=== PATIENT | female | born 1945 | race Caucasian/White ===

== ENCOUNTER → 2020-04-18 12:56 | Outpatient (BNVA) | payer MEDICARE, MEDICAID, SELFPAY | PROVIDERS: Visit Provider Surgery Vascular Surgery | DX: Z48.812 Encounter for surgical aftercare following surgery on the circulatory system (principal); Z86.73 Personal history of transient ischemic attack (TIA), and cerebral infarction without residual deficits | CPT/HCPCS: 99024; 99212 ==

== ENCOUNTER 2020-06-04 08:09 | Outpatient (REF) | payer MEDICARE, MEDICAID, SELFPAY ==
--- NOTE | 2020-06-04 | US_ITS ---
EXAMINATION: US VENOUS ULTRASOUND WITH DOPPLER LOWER EXTREMITY, LEFT CLINICAL INFORMATION: Left leg pain. COMPARISON: None TECHNIQUE: Ultrasound of the deep veins is performed from the hip to the calf with compression sonography and color and pulse Doppler assessment. Spectral analysis with color-flow imaging is performed. FINDINGS: There is normal venous compression and respiratory variation and augmented flow. The visualized common femoral vein, superficial femoral vein, profunda femoral vein, popliteal vein, and the trifurcation region shows no evidence of deep venous thrombosis. There is no significant popliteal fossa cyst. There is minimal fluid within the joint space suspicious for fusion. If the patient's symptoms persist, followup ultrasound in 5 days 7 days might be of value to exclude proximal propagation from a non-visualized calf vein. US/US venous duplex LE IMPRESSION: No DVT demonstrated in the left lower extremity. Suspect small joint effusion. No Schaefer's cyst seen.
== END 2020-06-04 08:10 | disposition home or self-care (01) ==
LOC: HO.US 08:09
PROVIDERS: Visit Provider Internal Medicine Medical Oncology
DX: I63.231 Cerebral infarction due to unspecified occlusion or stenosis of right carotid arteries (principal); M79.605 Pain in left leg
CPT/HCPCS: 93971

== ENCOUNTER 2020-07-10 08:30 | Emergency (ER) | payer MEDICARE, MEDICAID, SELFPAY ==
[2020-07-10 09:10] VITALS: BP 142/52; PULSE 99; RESP 15; O2SAT 99; BMI 19.5
--- NOTE | 2020-07-10 09:17 | ECG_ITS ---
Test Reason : NUMBNESS Blood Pressure : / mmHG Vent. Rate : 089 BPM Atrial Rate : 085 BPM P-R Int : 000 ms QRS Dur : 064 ms QT Int : 342 ms P-R-T Axes : 000 068 081 degrees QTc Int : 416 ms Normal sinus rhythm with PACs, possible aberrant conduction Septal infarct , age undetermined Nonspecific ST and T wave abnormality Abnormal ECG When compared with ECG of 01-APR-2020 13:34, PACs now present Referred By: Estrellita Ponce Electronically Signed By:JENELLE JACOBS
--- NOTE | 2020-07-10 09:18 | CT_ITS ---
EXAMINATION: CT HEAD WITHOUT CONTRAST CLINICAL INFORMATION: Left-sided weakness, numbness. History of CVA COMPARISON: None TECHNIQUE: Contiguous axial imaging was performed from the skull base to vertex without intravenous administration of contrast. This CT examination was performed using dose optimization techniques as appropriate, variously including the following: *Automated exposure control *Adjustment of mA and/or kV according to patient size (this includes techniques or standardized protocols for targeted exams where dose is matched to indication/reason for exam; i.e. extremities or head) *Use of iterative reconstruction technique DLP: 597 mGy-cm FINDINGS: There is a right posterior parietal lobe old infarct. There is no acute infarct in evolution. There is no acute intra-axial, extra-axial bleed, masses, edema or midline shift. Both lateral ventricles are symmetrical in size and configuration without enlargement. The sood to white matter differentiation maintained well. Bone windows reveal no calvarial abnormality. Bilateral frontal sinuses and bilateral mastoid air cells are well aerated. There is no scalp soft tissue abnormality. CT/CT head/brain wo con IMPRESSION: No acute intracranial process seen. Old infarct right posterior parietal lobe. The size of the infarct is similar to previous study. No acute infarct seen at this time.
--- NOTE | 2020-07-10 09:19 | ED_ITS ---
HPI - Neuro Symptoms/Deficit General Chief Complaint: Neuro Symptoms/Deficit Stated Complaint: hand and foot numbness Time Seen by Provider: 07/10/20 09:02 Source: patient Mode of arrival: ambulatory Limitations: no limitations History of Present Illness HPI Narrative: 74 y/o female with history of CVA Mar 2020, carotid artery stenosis s/p endarterectomy 04/01/2020, AAA s/p repair 2017, HTN who presents with 4 days of increased left sided weakness and heaviness as well as feeling of pins and needles in her left foot and hand. She has bruising on her hand and wrist and does not know how they got there. She states she has had left sided weakness since her stroke but this is now worse. She is nervous she is having another stroke. Related Data Home Medications Medication Instructions Recorded Confirmed albuterol sulfate 90 mcg/actuation 0 mcg PO 04/18/20 aerosol inhaler aspirin 81 mg tablet,delayed 81 mg PO DAILY 04/18/20 release atorvastatin 80 mg tablet 80 mg PO DAILY 04/18/20 clopidogrel 75 mg tablet 75 mg PO DAILY 04/18/20 latanoprost 0.005 % eye drops 1 drp OPHTHALMIC (EYE) BEDTIME 04/18/20 lisinopril 30 mg tablet 30 mg PO DAILY 04/18/20 lisinopril 40 mg tablet 40 mg PO DAILY 04/18/20 omeprazole 20 mg capsule,delayed 20 mg PO DAILY 04/18/20 06/18/20 release ranitidine HCl 150 mg tablet 150 mg PO BID 04/18/20 Previous Rx's Medication Instructions Recorded cefuroxime axetil 250 mg PO BID 7 Days #14 tab 07/10/20 Allergies Allergy/AdvReac Type Severity Reaction Status Date / Time penicillin V Allergy Unknown unkown Verified 04/18/20 13:11 Review of Systems Review of Systems: Constitutional: No Fever, No Chills ENT/Mouth: No Swallowing Difficulty Cardiovascular: + Chest Pain, No SOB, No Orthopnea, No Edema Respiratory: No Cough, No Sputum, No Wheezing, No dyspnea Gastrointestinal: No Nausea, No Vomiting, No Diarrhea, No abdominal Pain, No Hematochezia, No Melena Genitourinary: No Dysuria, No Urinary Frequency, No Hematuria Musculoskeletal: + joint pain, No Myalgias Skin: No Skin Lesions, No rash Neuro: + Weakness, + Numbness, No Dizziness, No Headache Psych: No Anxiety/Panic, No Depression Heme/Lymph: No Bruising, No Lymphadenopathy Endocrine: No Polyuria, No Polydipsia [facility] Past Medical History Medical History Glaucoma Mild acid reflux Surgical History History of AAA (abdominal aortic aneurysm) repair Hx of shoulder surgery Hx of varicose vein stripping Family History Family History Father No problems noted. Mother No problems noted. Sister No problems noted. Sister No problems noted. Sister No problems noted. Sister No problems noted. Sister Cancer Son No problems noted. Social History Social History Smoking Status: Former smoker Cigarettes Per Day: 31 Use of substances other than those prescribed or required for medical reasons: No Advance Directives: No Advance Directives Information Provided: No Physical Exam Vital Signs: Vital Signs: Last Vital Signs Temp 98.1 F 07/10/20 12:00 Pulse 80 07/10/20 12:00 Resp 16 07/10/20 12:00 BP 130/47 L 07/10/20 12:00 Pulse Ox 93 07/10/20 12:00 Body Mass Index 19.5 Appearance: Alert. Oriented X3. No acute distress. Eyes: Pupils equal, round and reactive to light. ENT: Pharynx normal. Neck: Normal inspection. Neck supple. CVS: irregularly irregular, regular rate. no murmur. Pulses normal. Anterior chest wall tenderness of lower ribs Respiratory: No respiratory distress. Breath sounds normal. Abdomen: Soft and nontender. +BS x4 Skin: Skin warm and dry. Normal skin color. Normal skin turgor. No rashes. Extremities: No lower extremity edema. Neuro: Oriented X 3. Normal speech and cognition. Left sided arm and leg weakness 3/5, normal sensation. Gait is steady Course Course Course Narrative: 74 y/o female with history of CVA in Mar with residual left sided weakness presents with worsening left sided weakness as well as numbness, tingling in her upper and lower extremities on the left for the last 4 days. Concern for worsening stroke. Unsafe at home with inability to safely ambualte. ?fall at home with bruising along her left side with tenderness of rib cage, wrist and ankle. Will get CT head, lab workup and imaging of wrist and ribs. She is not a TPA candidate given duration of symptoms. NIH is 5 however her symptoms are chronic from March, only subjectively more pronounced for the last 4 days. Reevaluation(s) Reevaluation #1: CT head showed unchanged old infarct right posterior parietal lobe, similar size to previous study. UA is positive for infection, no fever or leukocytosis. Rocephin ordered. Case d/w Dr. Recinos - recommended admission for weakness and UTI. Patient is unwilling to be admitted. She is also unwilling to go to short term rehab. She said after her stroke she also refused STR due to financial issues. She works 7 days per week in order to pay the bills. She also has 3 dogs to look after and no one to help her. Long discussion had with patient about her health, concern for possible evolving stroke and UTI. She is adament on not getting admitted and not going to STR. Discussed CTA head/neck as well and she is refusing. Reevaluation #2: Patient is going to leave against advise. She is ambulating with a steady gait. She was warned of possibility of leaving the hospital against medical advise. She verbalized understanding of the risks. MDM - Neuro Symptoms/Deficit Lab Data Result diagrams: 07/10/20 09:25 07/10/20 09:25 Labs: Lab Results 07/10/20 07/10/20 07/10/20 Range/Units 09:25 09:25 09:25 WBC 5.7 (4.8-10.8) X10*3/uL RBC 3.36 L (4.20-5.50) X10*6/uL Hgb 9.3 L (12.0-16.0) g/dl Hct 30.4 L (37-47) % MCV 90.5 (80-98) fL MCH 27.7 (27.0-33.0) pg MCHC 30.6 L (31.0-35.0) g/dl RDW 13.8 (11.0-16.0) % Plt Count 205 (160-400) X10*3/uL MPV 11.0 (9.4-12.3) fL Immature Gran % (Auto) 0.4 (0.0-0.4) % Neut % (Auto) 64.1 (45-73) % Lymph % (Auto) 25.5 (20-40) % [place] % (Auto) 6.9 (2-11) % Eos % (Auto) 2.7 (0-4) % Baso % (Auto) 0.4 (0-2) % Lymph # (Auto) 1.4 (1.2-4.9) X10*3/uL [place] # (Auto) 0.4 (0.1-1.2) X10*3/uL Eos # (Auto) 0.2 (0.0-0.4) X10*3/uL Baso # (Auto) 0.0 (0.0-0.2) X10*3/uL Abs Immat Gran (auto) 0.02 (0.00-0.03) X10*3/uL Absolute Neuts (auto) 3.6 (2.0-8.3) X10*3/uL Absolute Nucleated RBC 0.000 (0.0-0.012) X10*3/uL Nucleated RBC % (auto) 0.0 (0.0-0.2) /100WBC PT 11.1 (10.8-13.0) SEC INR 0.9 (0.9-1.1) APTT 27.7 (24.1-38.0) SEC Sodium 140 (135-145) mmol/L Potassium 4.6 (3.3-5.1) mmol/l Chloride 109 H (96-108) mmol/L Carbon Dioxide 26 (22-29) mmol/L Anion Gap 10 L (12-20) BUN 23 H (9-16) mg/dL Creatinine 1.06 (0.5-1.4) mg/dL Estim Creat Clear Calc 38.0 Estimated GFR 51 Random Glucose 94 (60-115) mg/dL Calcium 8.8 (8.4-10.2) mg/dL Magnesium 2.2 (1.6-2.6) mg/dL Troponin I High Sens (<3.5-17.0) ng/L Urine Color Urine Appearance Urine pH (5.0-8.0) Ur Specific [place] (1.005-1.025) Urine Protein (NEG-TRACE) MG/DL Urine Glucose (UA) (NEG) MG/DL Urine Ketones (NEG) MG/DL Urine Blood (NEG) Urine Nitrite (NEG) Ur Leukocyte Esterase (NEG) Urine RBC (0) /HPF Urine WBC (0-4) /HPF Ur Squamous Epith Cells /LPF Urine Bacteria /LPF 07/10/20 07/10/20 Range/Units 09:25 Unknown WBC (4.8-10.8) X10*3/uL RBC (4.20-5.50) X10*6/uL Hgb (12.0-16.0) g/dl Hct (37-47) % MCV (80-98) fL MCH (27.0-33.0) pg MCHC (31.0-35.0) g/dl RDW (11.0-16.0) % Plt Count (160-400) X10*3/uL MPV (9.4-12.3) fL Immature Gran % (Auto) (0.0-0.4) % Neut % (Auto) (45-73) % Lymph % (Auto) (20-40) % [place] % (Auto) (2-11) % Eos % (Auto) (0-4) % Baso % (Auto) (0-2) % Lymph # (Auto) (1.2-4.9) X10*3/uL [place] # (Auto) (0.1-1.2) X10*3/uL Eos # (Auto) (0.0-0.4) X10*3/uL Baso # (Auto) (0.0-0.2) X10*3/uL Abs Immat Gran (auto) (0.00-0.03) X10*3/uL Absolute Neuts (auto) (2.0-8.3) X10*3/uL Absolute Nucleated RBC (0.0-0.012) X10*3/uL Nucleated RBC % (auto) (0.0-0.2) /100WBC PT (10.8-13.0) SEC INR (0.9-1.1) APTT (24.1-38.0) SEC Sodium (135-145) mmol/L Potassium (3.3-5.1) mmol/l Chloride (96-108) mmol/L Carbon Dioxide (22-29) mmol/L Anion Gap (12-20) BUN (9-16) mg/dL Creatinine (0.5-1.4) mg/dL Estim Creat Clear Calc Estimated GFR Random Glucose (60-115) mg/dL Calcium (8.4-10.2) mg/dL Magnesium (1.6-2.6) mg/dL Troponin I High Sens < 3.5 (<3.5-17.0) ng/L Urine Color YELLOW Urine Appearance CLOUDY Urine pH 5.5 (5.0-8.0) Ur Specific [place] 1.015 (1.005-1.025) Urine Protein NEG (NEG-TRACE) MG/DL Urine Glucose (UA) NEG (NEG) MG/DL Urine Ketones NEG (NEG) MG/DL Urine Blood NEG (NEG) Urine Nitrite NEG (NEG) Ur Leukocyte Esterase 2+ H (NEG) Urine RBC 0-2 (0) /HPF Urine WBC 15-29 H (0-4) /HPF Ur Squamous Epith Cells 3+ /LPF Urine Bacteria 2+ /LPF NIH Stroke Scale Internal: Initial- Upon Arrival Level of Consciousness: Alert Level of Consciousness Questions: Answers both questions correctly Level of Consciousness Commands: Performs both tasks correctly Best Gaze: Normal Visual: No visual loss Facial Palsy: Minor paralyis Motor Arm (Right): No drift Motor Arm (Left): Some effort against gravity Motor Leg (Right): No drift Motor Leg (Left): Some effort against gravity Limb Ataxia: Absent Sensory: Normal Best Language: No aphasia Dysarthia: Normal Extinction and Inattention: No abnormality Score: 5 Discharge Plan Discharge Clinical Impression: Acute UTI, Left-sided muscle weakness Patient Disposition: Left Against Medical Advice Instructions: Against Medical Advice (ED), Urinary Tract Infection in Older Adults (ED) Additional Instructions: It was recommended that you be admitted to the hospital for weakness and a UTI, however you are refusing. It is possible that you are having a worsening stroke. This could be life threatening. Recommend close and early follow up with your doctor. Take the prescribed antibiotic for UTI. If you develop any worsening symptoms come back to the ER for further evaluation. If you decide that you would like to be admitted to the hospital come back to the ER. Prescriptions: New cefuroxime axetil 250 mg tablet 250 mg PO BID 7 Days Qty: 14 RF: 0 No Action omeprazole 20 mg capsule,delayed release(DR/EC) 20 mg PO DAILY RF: 0 Referrals: Elizabeth Hearn MD [Physician] - 1 day
--- NOTE | 2020-07-10 09:21 | XR_ITS ---
EXAMINATION: LEFT WRIST AND LEFT RIBS CLINICAL INFORMATION: Left wrist pain. Left rib pain. COMPARISON: None TECHNIQUE: Chest x-ray and left RIBS 4 views. Left wrist 4 views. FINDINGS: CHEST: The lungs are hyperinflated but clear of acute process. The heart size and pulmonary vascularity is normal. There is minimal right apical pleural thickening. No gross bony abnormality seen. LEFT RIBS: Multiple views left RIBS reveal no visible left rib fracture. The soft tissues are normal. A marker has been placed along the left lateral lower ribs. LEFT WRIST: There is a small chip fracture at the head of the fifth metacarpal with mild soft tissue swelling. No additional fractures seen. The soft tissues are normal. XR/XR wrist LT min 3V IMPRESSION: Hyperinflated lungs but no acute process seen. Multiple views of left ribs reveal no visible fracture or bony abnormality. Chip fracture left fifth distal metacarpal with mild dorsal soft tissue swelling. No additional bony abnormality seen.
--- NOTE | 2020-07-10 09:30 | XR_ITS ---
EXAMINATION: LEFT WRIST AND LEFT RIBS CLINICAL INFORMATION: Left wrist pain. Left rib pain. COMPARISON: None TECHNIQUE: Chest x-ray and left RIBS 4 views. Left wrist 4 views. FINDINGS: CHEST: The lungs are hyperinflated but clear of acute process. The heart size and pulmonary vascularity is normal. There is minimal right apical pleural thickening. No gross bony abnormality seen. LEFT RIBS: Multiple views left RIBS reveal no visible left rib fracture. The soft tissues are normal. A marker has been placed along the left lateral lower ribs. LEFT WRIST: There is a small chip fracture at the head of the fifth metacarpal with mild soft tissue swelling. No additional fractures seen. The soft tissues are normal. XR/XR ribs LT min 3V w CXR1V IMPRESSION: Hyperinflated lungs but no acute process seen. Multiple views of left ribs reveal no visible fracture or bony abnormality. Chip fracture left fifth distal metacarpal with mild dorsal soft tissue swelling. No additional bony abnormality seen.
[2020-07-10 09:36] LABS: Basophils Percent Auto 0.4 % (0-2); Eosinophils Absolute Auto 0.2 X10*3/uL (0.0-0.4); Eosinophils Percent Auto 2.7 % (0-4); Hematocrit 30.4 % (37-47); Hemoglobin 9.3 g/dl (12.0-16.0); Imm Gran Abs Auto 0.02 X10*3/uL (0.00-0.03); Imm Gran Pct Auto 0.4 % (0.0-0.4); Lymphocytes Absolute Auto 1.4 X10*3/uL (1.2-4.9); Lymphocytes Percent Auto 25.5 % (20-40); MANUAL DIFF FLAG NO; Mean Corpuscular HGB Conc 30.6 g/dl (31.0-35.0); Mean Corpuscular Hemoglobin 27.7 pg (27.0-33.0); Mean Corpuscular Volume 90.5 fL (80-98); Monocytes Absolute Auto 0.4 X10*3/uL (0.1-1.2); Monocytes Percent Auto 6.9 % (2-11); Neutrophils Absolute Auto 3.6 X10*3/uL (2.0-8.3); Neutrophils Percent Auto 64.1 % (45-73); Platelet Count 205 X10*3/uL (160-400); Red Blood Count 3.36 X10*6/uL (4.20-5.50); Red Cell Distribution Width 13.8 % (11.0-16.0); White Blood Count 5.7 X10*3/uL (4.8-10.8)
[2020-07-10 09:42] LABS: INTERNATIONAL NORM RATIO 0.9 (0.9-1.1); Prothrombin Time 11.1 SEC (10.8-13.0)
[2020-07-10 09:45] LABS: Partial Thromboplastin Time 27.7 SEC (24.1-38.0)
[2020-07-10 10:00] LABS: Anion Gap 10 (12-20); Blood Urea Nitrogen 23 mg/dL (9-16); Calcium 8.8 mg/dL (8.4-10.2); Carbon Dioxide 26 mmol/L (22-29); Chloride 109 mmol/L (96-108); Estimated Glomerular Filt Rate 51; Glucose Random 94 mg/dL (60-115); Magnesium 2.2 mg/dL (1.6-2.6); Potassium 4.6 mmol/l (3.3-5.1); Sodium 140 mmol/L (135-145)
[2020-07-10 10:05] LABS: Troponin-I High Sensitivity < 3.5 ng/L (<3.5-17.0)
[2020-07-10 10:21] VITALS: BP 152/51; PULSE 69; RESP 14; O2SAT 95
[2020-07-10 10:31] LABS: Glucose Urine UA NEG (NEG); Leukocyte Esterase Urine 2+ (NEG); Nitrite Urine NEG (NEG); PH 5.5 (5.0-8.0); Specific Gravity - Urine 1.015 (1.005-1.025); Urine Blood NEG (NEG); Urine Ketones NEG (NEG); Urine Protein NEG (NEG-TRACE)
[2020-07-10 10:32] LABS: Appearance Urine CLOUDY; Color Urine YELLOW
[2020-07-10 10:44] LABS: Bacteria Urine 2+ /LPF; RBC Urine 0-2 /HPF (0); Squamous Epithelial Cell Urine 3+ /LPF
[2020-07-10] MEDS: cefTRIAXone sodium 1 GM in 0.9 % Sodium Chloride 50 ML IV (11:11)
[2020-07-10] MEDS: 0.9 % Sodium Chloride 1,000 ML 999 ML IVCONT (11:11)
[2020-07-10 12:00] VITALS: BP 130/47; PULSE 80; RESP 16; TEMP 36.7; O2SAT 93
--- NOTE | 2020-07-10 12:09 | PC.NURSE ---
Pt ambulated to bathroom with steady gait. Pt declining admission, PA aware
== END 2020-07-10 12:45 | disposition left against medical advice (07) ==
PROVIDERS: Physician Assistant; Emergency Provider Emergency Medicine Emergency Medical Services; PCP Internal Medicine Medical Oncology
DX: N30.00 Acute cystitis without hematuria (principal); M62.81 Muscle weakness (generalized); I69.354 Hemiplegia and hemiparesis following cerebral infarction affecting left non-dominant side
CPT/HCPCS: 36415; 70450; 71101; 73110; 80048; 81001; 83735; 84484; 85025; 85610; 85730; 87086; 93005; 96361; 96365; 99285; J0696

== ENCOUNTER 2020-07-30 09:50 | Outpatient (REF) | payer MEDICARE, MEDICAID, SELFPAY ==
--- NOTE | 2020-07-30 09:54 | US_ITS ---
EXAMINATION: US EXTRACRANIAL CAROTID DUPLEX, BILATERAL CLINICAL INFORMATION: Right endarterectomy. COMPARISON: None. TECHNIQUE: Real-time ultrasound and Doppler techniques (integrating B-mode 2-D vascular images, Doppler spectral analysis and color-flow Doppler imaging) were utilized to interrogate the extracranial carotid arteries, the vertebral arteries and proximal subclavian arteries bilaterally. The degree of stenosis is determined by criteria similar to NASCET. FINDINGS: Right Side: 1. There is soft atherosclerotic plaque seen in the bifurcation/proximal ICA region. 2. The common carotid artery PSV proximally is 127 cm/s and distally 150 cm/s. 3. The proximal internal carotid artery velocities are 150 cm/s systolic and 36.3 cm/s diastolic. 4. The proximal external carotid artery PSV is 112 cm/s. 5. The vertebral artery shows 72.7 flow. 6. The subclavian artery waveforms are 189. Left Side: 1. There is soft atherosclerotic plaque seen in the bifurcation/proximal ICA region. 2. The common carotid artery PSV proximally is 126 cm/s and distally 128 cm/s. 3. The proximal internal carotid artery velocities are 125 cm/s systolic and 33.4 cm/s diastolic. 4. The proximal external carotid artery PSV is 154 cm/s. 5. The vertebral artery shows antegrade flow. 6. The subclavian artery waveforms are normal. US/US carotid duplex BI IMPRESSION: 1. RIGHT: Soft atherosclerotic plaque. 50-79% range stenosis right carotid artery. Similar findings were seen on the previous ultrasound exam 03/20/2020, however, the velocities previously measured 354 cm/s in the proximal ICA. Now it measures 150 cm/s. 2. LEFT: Soft atherosclerotic plaque with 50-79% range stenosis right carotid artery. These findings are new since the last exam. 3. Normal antegrade flow seen in both vertebral arteries. 4. Mild elevated velocity in the left ECA.
== END 2020-07-30 09:51 | disposition home or self-care (01) ==
LOC: HO.US 09:50
PROVIDERS: Visit Provider Surgery Vascular Surgery
DX: I63.231 Cerebral infarction due to unspecified occlusion or stenosis of right carotid arteries (principal); R63.4 Abnormal weight loss; I71.4 Abdominal aortic aneurysm, without rupture
CPT/HCPCS: 93880

== ENCOUNTER → 2020-08-13 09:04 | Outpatient (BNVA) | payer MEDICARE, SELFPAY | PROVIDERS: PCP Internal Medicine Medical Oncology; Visit Provider Surgery Vascular Surgery | DX: I71.4 Abdominal aortic aneurysm, without rupture (principal); I63.231 Cerebral infarction due to unspecified occlusion or stenosis of right carotid arteries | CPT/HCPCS: 99212 ==

== ENCOUNTER 2020-08-16 10:57 | Emergency (ER) | payer MEDICARE, SELFPAY ==
--- NOTE | ~2020-08-16 | CT_ITS ---
EXAMINATION: CT ANGIOGRAM OF THE CHEST WITH AND WITHOUT CONTRAST (CT PULMONARY ANGIOGRAM FOR PE) CLINICAL INFORMATION: Shortness of breath, elevated d-dimer, question PE COMPARISON: Chest x-ray 08/16/2020. CTA abdomen and pelvis 10/15/2017 TECHNIQUE: Prior to contrast administration, noncontrast localization images were obtained. Subsequently, multidetector volumetric imaging was performed from the thoracic inlet to below the diaphragms following the administration of 54 mL Omnipaque 350 intravenous contrast. No contrast reaction reported Sagittal, coronal, and MIP oblique sagittal reformatted images were obtained on the CT workstation, uploaded to PACS, and reviewed. This CT examination was performed using dose optimization techniques as appropriate, variously including the following: *Automated exposure control *Adjustment of mA and/or kV according to patient size (this includes techniques or standardized protocols for targeted exams where dose is matched to indication/reason for exam; i.e. extremities or head) *Use of iterative reconstruction technique Total exam dose-length product 250 mGy-cm FINDINGS: QUALITY OF STUDY/CONTRAST BOLUS: Satisfactory. PULMONARY ARTERIES: No central or segmental pulmonary emboli. THORACIC AORTA: No aneurysm or dissection. LUNG: Moderate to severe emphysema. No focal consolidation or mass. Mild atelectasis. PLEURA: No pleural effusion or pneumothorax. MEDIASTINUM: Normal heart size. No pericardial effusion. No hilar or mediastinal lymphadenopathy. No evidence of septal bowing or right heart strain. CHEST WALL/AXILLA: No axillary or internal mammary lymphadenopathy. OSSEOUS STRUCTURES: No acute or suspicious osseous abnormality. UPPER ABDOMEN: There is chronic atrophy of the posterior cortex of the right kidney with a prominent right extrarenal pelvis, similar to prior study. Extensive vascular calcifications of the infrarenal abdominal aorta with a partially imaged stent graft. No adrenal mass. No reflux of contrast into the hepatic veins to suggest elevated right heart pressures. CT/CT angio chest PE protocol IMPRESSION: No pulmonary embolus seen. No acute pulmonary disease. Moderate to severe emphysema VTE: negative
--- NOTE | ~2020-08-16 | XR_ITS ---
EXAMINATION: XR CHEST CLINICAL INFORMATION: SOB. COMPARISON: None TECHNIQUE: Frontal view of the chest was obtained. FINDINGS: The lungs are well-expanded but clear of acute pneumonic process. There is minimal bilateral apical density likely atelectasis or scarring. The heart size and pulmonary vascularity is normal. No gross bony abnormality seen. XR/XR chest 1V IMPRESSION: Bilateral apical patchy opacity, likely scarring or atelectasis. No acute consolidation seen.
[2020-08-16 11:09] VITALS: BP 137/57; PULSE 89; RESP 20; TEMP 36.2; O2SAT 93; BMI 19.2
[2020-08-16 14:19] VITALS: BP 117/66; PULSE 78; RESP 18; TEMP 36.6; O2SAT 93
--- NOTE | 2020-08-16 14:26 | ECG_ITS ---
Test Reason : SOB Blood Pressure : / mmHG Vent. Rate : 081 BPM Atrial Rate : 081 BPM P-R Int : 136 ms QRS Dur : 072 ms QT Int : 400 ms P-R-T Axes : 077 054 052 degrees QTc Int : 464 ms Sinus rhythm with Premature atrial complexes with Aberrant conduction Cannot rule out Anterior infarct (cited on or before 10-JUL-2020) Abnormal ECG When compared with ECG of 10-JUL-2020 09:25, Aberrant conduction is now Present ST less depressed in Anterior leads T wave inversion no longer evident in Anterior leads Referred By: Susan Vyas Electronically Signed By:JENELLE JACOBS
[2020-08-16 14:43] VITALS: BP 108/63; PULSE 80; RESP 18; TEMP 36.6; O2SAT 94
--- NOTE | 2020-08-16 14:44 | ED.SOB ---
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 Marion, AAA, DVT, HTN, HLD, COPD and GERD presenting to the ED c c/o SOB for the past 5 days worse today. Reports that she went to her primary care provider's office Dr. phillip and he sent her to come to the emergency department for further evaluation and treatment for IV steroids per patient. She reports the shortness of breath is worse with exertion and orthopnea. Denies any dizziness, headaches, lightheadedness, changes in vision, nausea/vomiting, chest pain, palpitations, cough, sputum production, extremity edema, any symptoms or any other symptoms complaints or concerns at this time. MD elicited complaint: shortness of breath Pertinent past history: COPD and DVT Onset (ago): day(s) (5 days) Context: occurred during exertion Timing: constant Severity: moderate Exacerbating factors: lying flat, exertion and deep breaths Relieving factors: rest and upright position Known history of: COPD and DVT Associated symptoms: orthopnea Treatment prior to arrival: none Related Data Home Medications Medication Instructions Recorded Confirmed albuterol sulfate 90 mcg/actuation 0 mcg PO 04/18/20 aerosol inhaler aspirin 81 mg tablet,delayed 81 mg PO DAILY 04/18/20 release atorvastatin 80 mg tablet 80 mg PO DAILY 04/18/20 clopidogrel 75 mg tablet 75 mg PO DAILY 04/18/20 latanoprost 0.005 % eye drops 1 drp OPHTHALMIC (EYE) BEDTIME 04/18/20 lisinopril 30 mg tablet 30 mg PO DAILY 04/18/20 lisinopril 40 mg tablet 40 mg PO DAILY 04/18/20 omeprazole 20 mg capsule,delayed 20 mg PO DAILY 04/18/20 06/18/20 release ranitidine HCl 150 mg tablet 150 mg PO BID 04/18/20 Previous Rx's Medication Instructions Recorded cefuroxime axetil 250 mg PO BID 7 Days #14 tab 07/10/20 albuterol sulfate 1 inh INHALATION QID PRN #8.5 g 08/16/20 doxycycline monohydrate 100 mg PO BID 10 Days #20 cap 08/16/20 prednisone 40 mg PO DAILY 5 Days #10 tab 08/16/20 Allergies Allergy/AdvReac Type Severity Reaction Status Date / Time penicillin V Allergy Unknown unkown Verified 08/16/20 11:09 Review of Systems Review of Systems: Constitutional : No Weight loss, No Fever, No Chills, No Night Sweats, No Fatigue, No Malaise ENT/Mouth : No Hearing loss, No Ear Pain, No Nasal Congestion, No Sinus Pain, No Hoarseness, No sore throat, No Rhinorrhea, No Swallowing Difficulty Eyes: No Eye Pain, No Swelling, No Redness, No Foreign Body, No Discharge, No Vision Changes Cardiovascular : + SOB, + Dyspnea on Exertion, + Orthopnea, No Chest Pain, No Edema, No extremity swelling, No Palpitations Respiratory : + Dyspnea, No Cough, No Sputum, No Wheezing Gastrointestinal : No Nausea, No Vomiting, No Diarrhea, No abdominal Pain, No Hematochezia, No Melena Genitourinary : No irregular bleeding, No Dysuria, No Urinary Frequency, No Hematuria, No Urinary Incontinence, No Urgency, No Flank Pain, No Urinary Flow Changes, No Hesitancy Musculoskeletal : No joint pain, No Myalgias, No Joint Swelling Skin : No Skin Lesions, No rash Neuro : No Weakness, No Numbness, No Paresthesias, No Loss of Consciousness, No Dizziness, No Headache Psych : No Anxiety/Panic, No Depression, No SI/HI/AH/VH Heme/Lymph: No Bruising, No Bleeding,No Lymphadenopathy Endocrine : No Polyuria, No Polydipsia, No Temperature Intolerance Yes all other systems are reviewed and are negative [facility] Past Medical History Attestation statement: The following information was validated with the patient. Medical History (Updated 08/16/20 @ 18:17 by JORGE Larson) Asthma COPD (chronic obstructive pulmonary disease) CVA (cerebral vascular accident) Emphysema of lung Glaucoma Mild acid reflux Surgical History H/O carotid endarterectomy (04/01/20) History of AAA (abdominal aortic aneurysm) repair Hx of shoulder surgery Hx of varicose vein stripping Family History Family History Father No problems noted. Mother No problems noted. Sister No problems noted. Sister No problems noted. Sister No problems noted. Sister No problems noted. Sister Cancer Son No problems noted. Social History Social History Alcohol intake: never Smoking Status: Former smoker Cigarettes Per Day: 31 Use of substances other than those prescribed or required for medical reasons: No Advance Directives: No Advance Directives Information Provided: No Physical Exam Vital Signs: Vital Signs: Last Vital Signs Temp 98.4 F 08/16/20 15:37 Pulse 72 08/16/20 15:37 Resp 19 08/16/20 15:37 BP 149/67 H 08/16/20 15:37 Pulse Ox 93 08/16/20 15:37 Body Mass Index 19.2 vital signs have been reviewed as normal and appeared to be correct. Blood pressure normal. Heart rate normal. Respiration rate normal. Temperature normal. Oxygen saturation normal. Appearance: Alert. Oriented X3. No acute distress. Head: Normal external exam. Normocephalic. Atraumatic. Eyes: PERRLA. EOMI. Conjunctiva and sclera normal. Eyelids normal. ENT: Pharynx normal. Uvula midline. Moist mucous membranes. No trismus noted. No drooling noted. No muffled voice noted. Neck: Normal inspection. Neck supple. FROM. No adenopathy. Thyroid Normal. Trachea midline. No meningeal signs. No neck mass noted. CVS: Normal heart rate and rhythm. Heart sound normal. No murmurs noted. Pulses normal throughout. Respiratory: No respiratory distress. Painless inspiration. Breath sounds normal. No wheezes/rales/rhonchi noted. Chest nontender. No accessory muscle usage noted or decreased air movement noted. Abdomen: Soft and nontender. Bowel sounds normal in all 4 quadrants. No distention noted. No organomegaly noted. No visible injury noted. : Chaperoned by MIGEL Brewster, normal external exam no hemorrhoids internal or external noted. Stool occult negative. Normal stool color light brown. Normal rectal tone. Back: No CVA tenderness. Full range of motion noted. Skin: Skin warm and dry. Normal skin color. Normal skin turgor. No rashes/lesions/lacerations noted. Extremities: No lower extremity edema. Extremities exhibit normal range of motion. Extremities nontender. Neuro: Oriented X 3. No motor deficit. No sensory deficit. Reflexes normal. 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 Marion, AAA, DVT, HTN, HLD, COPD and GERD presenting to the ED c c/o SOB for the past 5 days worse today. - Concern for COPD exacerbation vs PE vs PNA vs CHF vs ACS - on exam patient is alert and oriented x3. Patient's O2 sat is at 93 through 97% on room air otherwise all other vitals are within normal limits. - Plan: ;abs, CXR, EKG, blood cultures, lactic acid. Provide a L of IV fluids and 125 mg of Solu-Medrol then re-evaluate. Reevaluation(s) Reevaluation #1: - patient mildly anemic with H&H of 8.4/28.8 mild drop when compared to 07/10/2020. - D-dimer 595 - all other labs are within normal limits. UA within normal limits no evidence of UTI. - COVID/flu/RSV negative. - EKG sinus rhythm with ventricular rate of 81 with premature atrial complexes with aberrant conduction otherwise no acute ischemic changes noted. Similar compared to prior EKG on 07/10/2020 - CXR revealed bilateral atypical patchy opacity likely scarring or atelectasis. No acute consolidations seen - due to mild anemia stool occult performed although negative. - due to elevated D-dimer will obtain a CTA of chest for PE therefore waiting CTA Reevaluation #2: - CTA negative for PE. No acute pulmonary disease. Moderate to severe emphysema. - will attempt a walking exercise trial if patient's O2 sat stays above 90% on room air will DC home with steroids and symptomatic treatment along with instructions to return if any new or worsening symptoms and to follow up with primary care provider. Patient understands agrees the plan. Time: 18:13 MDM - SOB/Dyspnea Medical Records Attestation: I reviewed the patient's medical records. Lab Data Attestation: I reviewed the patient's lab results. Result diagrams: 08/16/20 15:47 08/16/20 15:47 Labs: Lab Results 08/16/20 08/16/20 08/16/20 Range/Units 15:18 15:47 15:47 WBC 7.6 (4.8-10.8) X10*3/uL RBC 3.43 L (4.20-5.50) X10*6/uL Hgb 8.4 L (12.0-16.0) g/dl Hct 28.1 L (37-47) % MCV 81.9 (80-98) fL MCH 24.5 L (27.0-33.0) pg MCHC 29.9 L (31.0-35.0) g/dl RDW 14.5 (11.0-16.0) % Plt Count 358 D (160-400) X10*3/uL MPV 11.5 (9.4-12.3) fL Immature Gran % (Auto) 0.3 (0.0-0.4) % Neut % (Auto) 63.9 (45-73) % Lymph % (Auto) 22.4 (20-40) % [place] % (Auto) 8.6 (2-11) % Eos % (Auto) 4.1 H (0-4) % Baso % (Auto) 0.7 (0-2) % Lymph # (Auto) 1.7 (1.2-4.9) X10*3/uL [place] # (Auto) 0.7 (0.1-1.2) X10*3/uL Eos # (Auto) 0.3 (0.0-0.4) X10*3/uL Baso # (Auto) 0.1 (0.0-0.2) X10*3/uL Abs Immat Gran (auto) 0.02 (0.00-0.03) X10*3/uL Absolute Neuts (auto) 4.9 (2.0-8.3) X10*3/uL Absolute Nucleated RBC 0.000 (0.0-0.012) X10*3/uL Nucleated RBC % (auto) 0.0 (0.0-0.2) /100WBC PT 11.8 (10.8-13.0) SEC INR 1.0 (0.9-1.1) D-Dimer 595 NG/ML Sodium (135-145) mmol/L Potassium (3.3-5.1) mmol/L Chloride (96-108) mmol/L Carbon Dioxide (22-29) mmol/L Anion Gap (12-20) BUN (9-16) mg/dL Creatinine (0.5-1.4) mg/dL Estim Creat Clear Calc Estimated GFR Random Glucose (60-115) mg/dL Lactic Acid (0.5-2.0) mmol/L Calcium (8.4-10.2) mg/dL Magnesium (1.6-2.6) mg/dL Ferritin (10-250) ng/mL Total Bilirubin (0.0-1.0) mg/dL Direct Bilirubin (0.0-0.5) mg/dL AST (5-31) U/L ALT (0-31) U/L Alkaline Phosphatase (39-117) U/L Lactate Dehydrogenase (122-220) U/L Troponin I High Sens (<3.5-17.0) ng/L C-Reactive Protein (< or = 0.50) mg/dL B-Natriuretic Peptide (<100) pg/mL Total Protein (6.5-8.0) g/dL Albumin (3.5-5.0) g/dL Procalcitonin ng/mL Urine Color Urine Appearance Urine pH (5.0-8.0) Ur Specific [place] (1.005-1.025) Urine Protein (NEG-TRACE) MG/DL Urine Glucose (UA) (NEG) MG/DL Urine Ketones (NEG) MG/DL Urine Blood (NEG) Urine Nitrite (NEG) Ur Leukocyte Esterase (NEG) Stool Occult Blood (NEG) Coronavirus (PCR) NEGATIVE (Negative) Influenza Type A (PCR) NEGATIVE (Negative) Influenza Type B (PCR) NEGATIVE (Negative) RSV RNA Qual (PCR) NEGATIVE (Negative) 08/16/20 08/16/20 08/16/20 Range/Units 15:47 15:47 15:47 WBC (4.8-10.8) X10*3/uL RBC (4.20-5.50) X10*6/uL Hgb (12.0-16.0) g/dl Hct (37-47) % MCV (80-98) fL MCH (27.0-33.0) pg MCHC (31.0-35.0) g/dl RDW (11.0-16.0) % Plt Count (160-400) X10*3/uL MPV (9.4-12.3) fL Immature Gran % (Auto) (0.0-0.4) % Neut % (Auto) (45-73) % Lymph % (Auto) (20-40) % [place] % (Auto) (2-11) % Eos % (Auto) (0-4) % Baso % (Auto) (0-2) % Lymph # (Auto) (1.2-4.9) X10*3/uL [place] # (Auto) (0.1-1.2) X10*3/uL Eos # (Auto) (0.0-0.4) X10*3/uL Baso # (Auto) (0.0-0.2) X10*3/uL Abs Immat Gran (auto) (0.00-0.03) X10*3/uL Absolute Neuts (auto) (2.0-8.3) X10*3/uL Absolute Nucleated RBC (0.0-0.012) X10*3/uL Nucleated RBC % (auto) (0.0-0.2) /100WBC PT (10.8-13.0) SEC INR (0.9-1.1) D-Dimer NG/ML Sodium 141 (135-145) mmol/L Potassium 4.3 (3.3-5.1) mmol/L Chloride 107 (96-108) mmol/L Carbon Dioxide 27 (22-29) mmol/L Anion Gap 11 L (12-20) BUN 15 (9-16) mg/dL Creatinine 0.89 (0.5-1.4) mg/dL Estim Creat Clear Calc 43.8 Estimated GFR > 60 Random Glucose 88 (60-115) mg/dL Lactic Acid 1.0 (0.5-2.0) mmol/L Calcium 8.4 (8.4-10.2) mg/dL Magnesium 2.3 (1.6-2.6) mg/dL Ferritin (10-250) ng/mL Total Bilirubin 0.3 (0.0-1.0) mg/dL Direct Bilirubin 0.2 (0.0-0.5) mg/dL AST 15 (5-31) U/L ALT 8 (0-31) U/L Alkaline Phosphatase 109 (39-117) U/L Lactate Dehydrogenase 177 (122-220) U/L Troponin I High Sens 5.0 (<3.5-17.0) ng/L C-Reactive Protein 0.18 (< or = 0.50) mg/dL B-Natriuretic Peptide 210 H (<100) pg/mL Total Protein 6.4 L (6.5-8.0) g/dL Albumin 3.7 (3.5-5.0) g/dL Procalcitonin ng/mL Urine Color Urine Appearance Urine pH (5.0-8.0) Ur Specific [place] (1.005-1.025) Urine Protein (NEG-TRACE) MG/DL Urine Glucose (UA) (NEG) MG/DL Urine Ketones (NEG) MG/DL Urine Blood (NEG) Urine Nitrite (NEG) Ur Leukocyte Esterase (NEG) Stool Occult Blood (NEG) Coronavirus (PCR) (Negative) Influenza Type A (PCR) (Negative) Influenza Type B (PCR) (Negative) RSV RNA Qual (PCR) (Negative) 08/16/20 08/16/20 08/16/20 Range/Units 15:47 15:47 16:23 WBC (4.8-10.8) X10*3/uL RBC (4.20-5.50) X10*6/uL Hgb (12.0-16.0) g/dl Hct (37-47) % MCV (80-98) fL MCH (27.0-33.0) pg MCHC (31.0-35.0) g/dl RDW (11.0-16.0) % Plt Count (160-400) X10*3/uL MPV (9.4-12.3) fL Immature Gran % (Auto) (0.0-0.4) % Neut % (Auto) (45-73) % Lymph % (Auto) (20-40) % [place] % (Auto) (2-11) % Eos % (Auto) (0-4) % Baso % (Auto) (0-2) % Lymph # (Auto) (1.2-4.9) X10*3/uL [place] # (Auto) (0.1-1.2) X10*3/uL Eos # (Auto) (0.0-0.4) X10*3/uL Baso # (Auto) (0.0-0.2) X10*3/uL Abs Immat Gran (auto) (0.00-0.03) X10*3/uL Absolute Neuts (auto) (2.0-8.3) X10*3/uL Absolute Nucleated RBC (0.0-0.012) X10*3/uL Nucleated RBC % (auto) (0.0-0.2) /100WBC PT (10.8-13.0) SEC INR (0.9-1.1) D-Dimer NG/ML Sodium (135-145) mmol/L Potassium (3.3-5.1) mmol/L Chloride (96-108) mmol/L Carbon Dioxide (22-29) mmol/L Anion Gap (12-20) BUN (9-16) mg/dL Creatinine (0.5-1.4) mg/dL Estim Creat Clear Calc Estimated GFR Random Glucose (60-115) mg/dL Lactic Acid (0.5-2.0) mmol/L Calcium (8.4-10.2) mg/dL Magnesium (1.6-2.6) mg/dL Ferritin 9 L (10-250) ng/mL Total Bilirubin (0.0-1.0) mg/dL Direct Bilirubin (0.0-0.5) mg/dL AST (5-31) U/L ALT (0-31) U/L Alkaline Phosphatase (39-117) U/L Lactate Dehydrogenase (122-220) U/L Troponin I High Sens (<3.5-17.0) ng/L C-Reactive Protein (< or = 0.50) mg/dL B-Natriuretic Peptide (<100) pg/mL Total Protein (6.5-8.0) g/dL Albumin (3.5-5.0) g/dL Procalcitonin 0.03 ng/mL Urine Color YELLOW Urine Appearance CLEAR Urine pH 7.5 (5.0-8.0) Ur Specific [place] 1.015 (1.005-1.025) Urine Protein NEG (NEG-TRACE) MG/DL Urine Glucose (UA) NEG (NEG) MG/DL Urine Ketones NEG (NEG) MG/DL Urine Blood NEG (NEG) Urine Nitrite NEG (NEG) Ur Leukocyte Esterase NEG (NEG) Stool Occult Blood (NEG) Coronavirus (PCR) (Negative) Influenza Type A (PCR) (Negative) Influenza Type B (PCR) (Negative) RSV RNA Qual (PCR) (Negative) 08/16/20 Range/Units 17:31 WBC (4.8-10.8) X10*3/uL RBC (4.20-5.50) X10*6/uL Hgb (12.0-16.0) g/dl Hct (37-47) % MCV (80-98) fL MCH (27.0-33.0) pg MCHC (31.0-35.0) g/dl RDW (11.0-16.0) % Plt Count (160-400) X10*3/uL MPV (9.4-12.3) fL Immature Gran % (Auto) (0.0-0.4) % Neut % (Auto) (45-73) % Lymph % (Auto) (20-40) % [place] % (Auto) (2-11) % Eos % (Auto) (0-4) % Baso % (Auto) (0-2) % Lymph # (Auto) (1.2-4.9) X10*3/uL [place] # (Auto) (0.1-1.2) X10*3/uL Eos # (Auto) (0.0-0.4) X10*3/uL Baso # (Auto) (0.0-0.2) X10*3/uL Abs Immat Gran (auto) (0.00-0.03) X10*3/uL Absolute Neuts (auto) (2.0-8.3) X10*3/uL Absolute Nucleated RBC (0.0-0.012) X10*3/uL Nucleated RBC % (auto) (0.0-0.2) /100WBC PT (10.8-13.0) SEC INR (0.9-1.1) D-Dimer NG/ML Sodium (135-145) mmol/L Potassium (3.3-5.1) mmol/L Chloride (96-108) mmol/L Carbon Dioxide (22-29) mmol/L Anion Gap (12-20) BUN (9-16) mg/dL Creatinine (0.5-1.4) mg/dL Estim Creat Clear Calc Estimated GFR Random Glucose (60-115) mg/dL Lactic Acid (0.5-2.0) mmol/L Calcium (8.4-10.2) mg/dL Magnesium (1.6-2.6) mg/dL Ferritin (10-250) ng/mL Total Bilirubin (0.0-1.0) mg/dL Direct Bilirubin (0.0-0.5) mg/dL AST (5-31) U/L ALT (0-31) U/L Alkaline Phosphatase (39-117) U/L Lactate Dehydrogenase (122-220) U/L Troponin I High Sens (<3.5-17.0) ng/L C-Reactive Protein (< or = 0.50) mg/dL B-Natriuretic Peptide (<100) pg/mL Total Protein (6.5-8.0) g/dL Albumin (3.5-5.0) g/dL Procalcitonin ng/mL Urine Color Urine Appearance Urine pH (5.0-8.0) Ur Specific [place] (1.005-1.025) Urine Protein (NEG-TRACE) MG/DL Urine Glucose (UA) (NEG) MG/DL Urine Ketones (NEG) MG/DL Urine Blood (NEG) Urine Nitrite (NEG) Ur Leukocyte Esterase (NEG) Stool Occult Blood NEG (NEG) Coronavirus (PCR) (Negative) Influenza Type A (PCR) (Negative) Influenza Type B (PCR) (Negative) RSV RNA Qual (PCR) (Negative) Imaging Data Chest x-ray: Attestation: I personally reviewed and interpreted this imaging study as follows: Radiologist's impression: FINDINGS: The lungs are well-expanded but clear of acute pneumonic process. There is minimal bilateral apical density likely atelectasis or scarring. The heart size and pulmonary vascularity is normal. No gross bony abnormality seen. XR/XR chest 1V IMPRESSION: Bilateral apical patchy opacity, likely scarring or atelectasis. No acute consolidation seen. CT of chest for PE: Attestation: I personally reviewed and interpreted this imaging study as follows: Radiologist's impression: FINDINGS: QUALITY OF STUDY/CONTRAST BOLUS: Satisfactory. PULMONARY ARTERIES: No central or segmental pulmonary emboli. THORACIC AORTA: No aneurysm or dissection. LUNG: Moderate to severe emphysema. No focal consolidation or mass. Mild atelectasis. PLEURA: No pleural effusion or pneumothorax. MEDIASTINUM: Normal heart size. No pericardial effusion. No hilar or mediastinal lymphadenopathy. No evidence of septal bowing or right heart strain. CHEST WALL/AXILLA: No axillary or internal mammary lymphadenopathy. OSSEOUS STRUCTURES: No acute or suspicious osseous abnormality. UPPER ABDOMEN: There is chronic atrophy of the posterior cortex of the right kidney with a prominent right extrarenal pelvis, similar to prior study. Extensive vascular calcifications of the infrarenal abdominal aorta with a partially imaged stent graft. No adrenal mass. No reflux of contrast into the hepatic veins to suggest elevated right heart pressures. CT/CT angio chest PE protocol IMPRESSION: No pulmonary embolus seen. No acute pulmonary disease. Moderate to severe emphysema VTE: negative ECG Data Attestation: I personally reviewed and interpreted this ECG as follows: ECG interpretation date: 08/16/20 ECG interpretation time: 14:38 Interpretation: EKG sinus rhythm with ventricular rate of 81 with premature atrial complexes with aberrant conduction otherwise no acute ischemic changes noted. Similar compared to prior EKG on 07/10/2020 Critical Care Time Critical Care Time Critical Care Time: Yes Total Critical Care Time: 60 Attestation: I personally attest to this time spent taking care of the patient Discharge Plan Discharge Clinical Impression: COPD (chronic obstructive pulmonary disease), Emphysema of lung, Anemia Instructions: Anemia (ED), COPD (Chronic Obstructive Pulmonary Disease) (ED), Emphysema (ED) Prescriptions: New prednisone 20 mg tablet 40 mg PO DAILY 5 Days Qty: 10 RF: 0 doxycycline monohydrate 100 mg capsule 100 mg PO BID 10 Days Qty: 20 RF: 0 albuterol sulfate 90 mcg/actuation HFA aerosol inhaler 1 inh inhalation QID PRN (Reason: shortness of breath or wheezing) Qty: 8.5 RF: 0 No Action cefuroxime axetil 250 mg tablet 250 mg PO BID 7 Days Qty: 14 RF: 0 omeprazole 20 mg capsule,delayed release(DR/EC) 20 mg PO DAILY RF: 0 Referrals: Wallace Roldan MD [Primary Care Provider] - 2 days Print Language: Chinese
[2020-08-16] MEDS: 0.9 % Sodium Chloride 1,000 ML 999 ML IVCONT (15:31)
[2020-08-16] MEDS: methylPREDNISolone Sod Succ/PF 125 MG/2 ML VIAL IVPUSH (15:31)
[2020-08-16 15:37] VITALS: BP 149/67; PULSE 72; RESP 19; TEMP 36.9; O2SAT 93
[2020-08-16 16:01] LABS: MANUAL DIFF FLAG NO
[2020-08-16 16:09] LABS: Basophils Absolute Auto 0.1 X10*3/uL (0.0-0.2); Basophils Percent Auto 0.7 % (0-2); Eosinophils Absolute Auto 0.3 X10*3/uL (0.0-0.4); Eosinophils Percent Auto 4.1 % (0-4); Hematocrit 28.1 % (37-47); Hemoglobin 8.4 g/dl (12.0-16.0); Imm Gran Abs Auto 0.02 X10*3/uL (0.00-0.03); Imm Gran Pct Auto 0.3 % (0.0-0.4); Lymphocytes Absolute Auto 1.7 X10*3/uL (1.2-4.9); Lymphocytes Percent Auto 22.4 % (20-40); Mean Corpuscular HGB Conc 29.9 g/dl (31.0-35.0); Mean Corpuscular Hemoglobin 24.5 pg (27.0-33.0); Mean Corpuscular Volume 81.9 fL (80-98); Mean Platelet Volume 11.5 fL (9.4-12.3); Monocytes Absolute Auto 0.7 X10*3/uL (0.1-1.2); Monocytes Percent Auto 8.6 % (2-11); Neutrophils Absolute Auto 4.9 X10*3/uL (2.0-8.3); Neutrophils Percent Auto 63.9 % (45-73); Platelet Count 358 X10*3/uL (160-400); Prothrombin Time 11.8 SEC (10.8-13.0); Red Blood Count 3.43 X10*6/uL (4.20-5.50); Red Cell Distribution Width 14.5 % (11.0-16.0); White Blood Count 7.6 X10*3/uL (4.8-10.8)
[2020-08-16 16:12] LABS: D Dimer 595 NG/ML
[2020-08-16 16:25] LABS: Influenza A PCR NEGATIVE (Negative); Influenza B PCR NEGATIVE (Negative); Resp Syncy Virus RNA Qual PCR NEGATIVE (Negative); SARS COV2 PCR INHOUSE NEGATIVE (Negative)
[2020-08-16 16:30] LABS: Alanine Aminotransferase 8 U/L (0-31); Albumin Level 3.7 g/dL (3.5-5.0); Alkaline Phosphatase 109 U/L (39-117); Anion Gap 11 (12-20); Aspartate Amino Transferase 15 U/L (5-31); Bilirubin Direct 0.2 mg/dL (0.0-0.5); Bilirubin Total 0.3 mg/dL (0.0-1.0); Blood Urea Nitrogen 15 mg/dL (9-16); C Reactive Protein 0.18 mg/dL (< or = 0.50); Calcium 8.4 mg/dL (8.4-10.2); Carbon Dioxide 27 mmol/L (22-29); Chloride 107 mmol/L (96-108); Creatinine Clr Calc Pharmacy 43.8; Estimated Glomerular Filt Rate > 60; Glucose Random 88 mg/dL (60-115); Lactate Dehydrogenase 177 U/L (122-220); Magnesium 2.3 mg/dL (1.6-2.6); Potassium 4.3 mmol/L (3.3-5.1); Sodium 141 mmol/L (135-145); Total Protein 6.4 g/dL (6.5-8.0)
[2020-08-16 16:34] LABS: B Type Natriuretic Peptide 210 pg/mL (<100)
[2020-08-16 16:34] LABS: Glucose Urine UA NEG (NEG); Leukocyte Esterase Urine NEG (NEG); Nitrite Urine NEG (NEG); PH 7.5 (5.0-8.0); Specific Gravity - Urine 1.015 (1.005-1.025); Urine Blood NEG (NEG); Urine Ketones NEG (NEG); Urine Protein NEG (NEG-TRACE)
[2020-08-16 16:36] LABS: Appearance Urine CLEAR; Color Urine YELLOW
[2020-08-16 16:49] LABS: Procalcitonin 0.03 ng/mL
[2020-08-16 16:50] LABS: Ferritin 9 ng/mL (10-250)
[2020-08-16] MEDS: iohexoL 350 MG/ML 100 ML INFUS..BTL IV (17:24)
[2020-08-16 17:36] LABS: OBS Int Ctl Valid YES; OBS1 NEG (NEG)
[2020-08-16 18:27] VITALS: PULSE 89; O2SAT 94
[2020-08-16] MEDS: Albuterol Sulfate (0.083%) 2.5 MG/3 ML VIAL.NEB INHALE (18:29)
== END 2020-08-16 19:00 | disposition home or self-care (01) ==
PROVIDERS: Physician Assistant Medical; Emergency Provider Emergency Medicine Emergency Medical Services; PCP Internal Medicine Medical Oncology
DX: J43.9 Emphysema, unspecified (principal); D64.9 Anemia, unspecified; Z20.822 Contact with and (suspected) exposure to COVID-19; K21.9 Gastro-esophageal reflux disease without esophagitis; Z86.718 Personal history of other venous thrombosis and embolism; Z86.73 Personal history of transient ischemic attack (TIA), and cerebral infarction without residual deficits; Z79.899 Other long term (current) drug therapy
CPT/HCPCS: 0241U; 36415; 71045; 71275; 80048; 80076; 81003; 82272; 82728; 83605; 83615; 83735; 83880; 84145; 84484; 85025; 85379; 85610; 86140; 87040; 93005; 94640; 96361; 96374; 99284; 99291; J2930; Q9967

== ENCOUNTER 2020-08-27 07:54 | Outpatient (REF) | payer MEDICARE, MEDICAID, SELFPAY ==
--- NOTE | ~2020-08-27 | CT_ITS ---
EXAMINATION: CT ANGIOGRAM ABDOMEN AND PELVIS CLINICAL INFORMATION: This is a 75-year-old female with occlusion of the arterial system. Abdominal aortic aneurysm. COMPARISON: Comparison is made to a previous study dated 10/15/2017 which demonstrated a 4.8 x 4.8 cm abdominal aortic aneurysm. TECHNIQUE: Multiple axial images were obtained through the abdomen and pelvis following the administration of 85 mL of Omnipaque 350 intravenous contrast. Images were reviewed on a dedicated 3-D workstation. This CT examination was performed using dose optimization techniques as appropriate, variously including the following: *Automated exposure control *Adjustment of mA and/or kV according to patient size (this includes techniques or standardized protocols for targeted exams where dose is matched to indication/reason for exam; i.e. extremities or head) *Use of iterative reconstruction technique Images were evaluated on an independent dedicated 3-D workstation and 3-D images were reconstructed with concurrent radiologist supervision and subsequently interpreted. DLP: 153 mGy-cm FINDINGS: VASCULAR: Abdominal Aorta: The patient is status post EVAR. 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 There is thrombus in the proximal segment of the EVAR graft. No endoleak is appreciated. The aneurysm has decreased in size, now with a maximum diameter 3.7 x 3.2 cm. Previously, the aneurysm measured 4.4 x 4.4 cm at the same location. Celiac Trunk: There is 30% narrowing in the proximal celiac artery. Mesenteric Arteries: There is 50% narrowing the proximal superior mesenteric artery. The distal main trunk of the superior mesenteric artery appears patent. There is visualization of the inferior mesenteric artery at the origin of the EVAR graft. Renal Arteries: There are 2 left renal arteries. The inferior left renal artery is smaller in caliber without focal stenosis. The superior left renal artery appears to be patent. There is a single right renal artery with 30% narrowing at its origin. Iliac Arteries: The left iliac limb of the EVAR is occluded throughout its course. The right iliac limb demonstrates flow. The overall luminal diameter of the right iliac limb appears small in caliber, measuring approximately 0.8 cm. The iliac limbs terminate within the common iliac arteries. There is collateral reconstitution of the left external iliac artery at its origin, possibly due to retrograde flow through the left hypogastric artery. There is severe disease in both hypogastric arteries. Flow is seen into the right external iliac artery. There is irregular 30% calcified atherosclerotic narrowing in the common femoral arteries bilaterally. There appears to be occlusion of the proximal right superficial femoral artery. This may be a new occlusion. It is partially imaged on the current study. NONVASCULAR: CHEST: LUNG: No focal consolidation, nodules or masses. ABDOMEN AND PELVIS: LIVER, GALLBLADDER, AND BILIARY TREE: The liver is normal in size, shape, and attenuation. No focal hepatic lesion or biliary ductal dilatation is present. The gallbladder is unremarkable with no evidence of radiopaque gallstones, gallbladder wall thickening, or obvious pericholecystic inflammatory changes. PANCREAS: There is mild atrophy without ductal dilatation. SPLEEN: Unremarkable. ADRENAL GLANDS: Unremarkable. KIDNEYS AND URETERS: The left kidney appears within normal limits. There is persistent mild hydronephrosis within the right kidney. In addition, there is significant cortical thinning and soft tissue loss in the upper medial aspect of the right kidney. This was seen on the previous study. This could be tissue loss secondary to chronic obstruction. BLADDER: No bladder wall thickening. No bladder calculi. GASTROINTESTINAL TRACT: There is a nonobstructive bowel gas pattern. There is diverticulosis without evidence of diverticulitis. The appendix appears normal. ABDOMINAL WALL: No significant hernia is appreciated. INTRA-ABDOMINAL AND RETROPERITONEAL SPACES: No intra-abdominal free fluid collections or gas. No mesenteric, retroperitoneal, or inguinal lymphadenopathy. PELVIC VISCERA: Unremarkable. OSSEOUS STRUCTURES: Multilevel degenerative changes of the spine. CT/CT angio abdomen pelvis IMPRESSION: 1. The patient is now status post EVAR. No endoleak is seen. However, the inferior mesenteric artery is seen up to the origin of the aneurysm sac. 2. The left iliac limb of the EVAR is occluded throughout its course. 3. There is collateral reconstitution of the left external iliac artery. 4. There is been decrease in size of the abdominal aortic aneurysm which now measures 3.7 x 3.2 cm. Previously, this measured 4.4 x 4.4 cm at this location.
[2020-08-27] MEDS: iohexoL 350 MG/ML 100 ML INFUS..BTL IV (08:57)
== END 2020-08-27 07:55 | disposition home or self-care (01) ==
LOC: HO.CT 07:54
PROVIDERS: Visit Provider Surgery Vascular Surgery
DX: I71.4 Abdominal aortic aneurysm, without rupture (principal)
CPT/HCPCS: 74174; Q9967

== ENCOUNTER → 2020-08-29 09:36 | Outpatient (BNVA) | payer MEDICARE, SELFPAY | PROVIDERS: Visit Provider Surgery Vascular Surgery | DX: Z76.89 Persons encountering health services in other specified circumstances (principal) | CPT/HCPCS: Q3014 ==

== ENCOUNTER 2020-09-25 14:42 | Emergency (ER) | payer MEDICARE, MEDICAID, SELFPAY ==
[2020-09-25 14:48] VITALS: BP 135/88; PULSE 85; RESP 16; TEMP 36.8; O2SAT 95; BMI 21.2
--- NOTE | 2020-09-25 15:58 | ED_ITS ---
HPI - General Adult General Chief complaint: General Medical Stated complaint: had covid shot feels horrible Time Seen by Provider: 09/25/20 15:50 Source: patient Mode of arrival: ambulatory Limitations: no limitations History of Present Illness HPI narrative: patient comes to the emergency room complaining of Nausea and vomiting. Patient states she got her mother in a shot 3 days ago, this was her 1st 1. Patient states she has been having nausea and vomiting. Patient states that she made a point to come to the emergency room today, however, all day today she has been feeling very well and has not been nauseous or vomiting. Patient states that she feels back to baseline. Patient has no back pain, no shortness of breath, no chest pain, no longer vomiting feeling nauseous. Related Data Home Medications Medication Instructions Recorded Confirmed albuterol sulfate 90 mcg/actuation 0 mcg PO 04/18/20 aerosol inhaler aspirin 81 mg tablet,delayed 81 mg PO DAILY 04/18/20 release atorvastatin 80 mg tablet 80 mg PO DAILY 04/18/20 clopidogrel 75 mg tablet 75 mg PO DAILY 04/18/20 latanoprost 0.005 % eye drops 1 drp OPHTHALMIC (EYE) BEDTIME 04/18/20 lisinopril 30 mg tablet 30 mg PO DAILY 04/18/20 lisinopril 40 mg tablet 40 mg PO DAILY 04/18/20 omeprazole 20 mg capsule,delayed 20 mg PO DAILY 04/18/20 06/18/20 release ranitidine HCl 150 mg tablet 150 mg PO BID 04/18/20 Previous Rx's Medication Instructions Recorded cefuroxime axetil 250 mg PO BID 7 Days #14 tab 07/10/20 albuterol sulfate 1 inh INHALATION QID PRN #8.5 g 08/16/20 albuterol sulfate 5 mg INHALATION Q4H PRN #30 ea 08/16/20 doxycycline monohydrate 100 mg PO BID 10 Days #20 cap 08/16/20 nebulizers [AeroEclipse II #1 ea 08/16/20 Nebulizer] prednisone 40 mg PO DAILY 5 Days #10 tab 08/16/20 ondansetron HCl [Zofran] 4 mg PO Q6H PRN #14 tab 09/25/20 Allergies Allergy/AdvReac Type Severity Reaction Status Date / Time penicillin V Allergy Unknown unkown Verified 08/29/20 09:35 Review of Systems Review of Systems: Constitutional : No Weight loss, No Fever, No Chills, No Night Sweats, complaining of fatigue and generalized malaise that resolved ENT/Mouth : No Hearing loss, No Ear Pain, No Nasal Congestion, No Sinus Pain, No Hoarseness, No sore throat, No Rhinorrhea, No Swallowing Difficulty Eyes: No Eye Pain, No Swelling, No Redness, No Foreign Body, No Discharge, No Vision Changes Cardiovascular : No Chest Pain, No SOB, No Dyspnea on Exertion, No Orthopnea, No Edema, No Palpitations Respiratory : No Cough, No Sputum, No Wheezing, No Smoke Exposure, No Dyspnea Gastrointestinal : Multiple episodes of nausea vomiting which resolved, No Diarrhea, No Constipation, No abdominal Pain, No Hematochezia, No Melena Genitourinary : no irregular bleeding, No Dysuria, No Urinary Frequency, No Hematuria, No Urinary Incontinence, No Urgency, No Flank Pain, No Urinary Flow Changes, No Hesitancy Musculoskeletal : No joint pain, No Myalgias, No Joint Swelling Skin : No Skin Lesions, No rash Neuro : No Weakness, No Numbness, No Paresthesias, No Loss of Consciousness, No Dizziness, No Headache Psych : No Anxiety/Panic, No Depression, No SI/HI/AH/VH, No Social Issues, Heme/Lymph: No Bruising, No Bleeding,No Lymphadenopathy Endocrine : No Polyuria, No Polydipsia, No Temperature Intolerance [facility] Past Medical History Medical History Asthma COPD (chronic obstructive pulmonary disease) CVA (cerebral vascular accident) Emphysema of lung Glaucoma Mild acid reflux Surgical History H/O carotid endarterectomy (04/01/20) History of AAA (abdominal aortic aneurysm) repair Hx of shoulder surgery Hx of varicose vein stripping Family History Family History Father No problems noted. Mother No problems noted. Sister No problems noted. Sister No problems noted. Sister No problems noted. Sister No problems noted. Sister Cancer Son No problems noted. Social History Social History Alcohol intake: never Smoking Status: Former smoker Cigarettes Per Day: 31 Advance Directives: No Advance Directives Information Provided: No Physical Exam Vital Signs: Vital Signs: Last Vital Signs Temp 98.2 F 09/25/20 14:48 Pulse 85 09/25/20 14:48 Resp 16 09/25/20 14:48 BP 135/88 09/25/20 14:48 Pulse Ox 95 09/25/20 14:48 Body Mass Index 21.2 Appearance: Alert. Oriented X3. No acute distress. Eyes: Pupils equal, round and reactive to light. ENT: Pharynx normal. Neck: Normal inspection. Neck supple. No lymph nodes noted. No crepitus CVS: Normal heart rate and rhythm. Pulses normal. Normal S1 and S2 Respiratory: No respiratory distress. Breath sounds normal. Abdomen: Soft and nontender. No rigidity. No distention. good BS x4 Skin: Skin warm and dry. Normal skin color. Normal skin turgor. Extremities: No lower extremity edema. No lower extremity edema. No Lacerations. No Rash Neuro: Oriented X 3. No motor deficit. No sensory deficit. Moving all extermities. No slurred speech. Course Course Course Narrative: This patient has been vomiting for 3 days, I offer the patient blood work and possibly IV fluids depending on lab work. Patient states that she feels well, and needs to get home as soon as possible to take care of her dogs. Patient requested prescription of Zofran in case she gets nauseous again and have enough for an exam that she gets her 2nd COVID shot. Discharge Plan Discharge Clinical Impression: Nauseous Patient Disposition: Home, Self-Care Instructions: Acute Nausea and Vomiting (ED) Additional Instructions: Please follow-up with your primary care physician tomorrow. If you have any worsening or new symptoms, please return to the emergency room or call 911 Prescriptions: New ondansetron HCl [Zofran] 4 mg tablet 4 mg PO Q6H PRN (Reason: nausea and vomiting) Qty: 14 RF: 0 No Action cefuroxime axetil 250 mg tablet 250 mg PO BID 7 Days Qty: 14 RF: 0 prednisone 20 mg tablet 40 mg PO DAILY 5 Days Qty: 10 RF: 0 doxycycline monohydrate 100 mg capsule 100 mg PO BID 10 Days Qty: 20 RF: 0 albuterol sulfate 90 mcg/actuation HFA aerosol inhaler 1 inh inhalation QID PRN (Reason: shortness of breath or wheezing) Qty: 8.5 RF: 0 albuterol sulfate 2.5 mg/0.5 mL solution for nebulization 5 mg inhalation Q4H PRN (Reason: shortness of breath or wheezing) Qty: 30 RF: 0 (DME) AeroEclipse II Nebulizer Misc See Rx Instructions .ROUTE .MEDSUPPLY Qty: 1 RF: 0 omeprazole 20 mg capsule,delayed release(DR/EC) 20 mg PO DAILY RF: 0
== END 2020-09-25 16:19 | disposition home or self-care (01) ==
PROVIDERS: Emergency Provider Emergency Medicine; PCP Internal Medicine Medical Oncology
DX: R11.2 Nausea with vomiting, unspecified (principal); Z79.899 Other long term (current) drug therapy; Z87.891 Personal history of nicotine dependence
CPT/HCPCS: 99283

== ENCOUNTER 2020-09-30 10:12 | Outpatient (REF) | payer MEDICARE, MEDICAID, SELFPAY ==
[2020-09-30 13:45] LABS: MANUAL DIFF FLAG NO
[2020-09-30 13:54] LABS: Basophils Percent Auto 0.3 % (0-2); Eosinophils Absolute Auto 0.2 X10*3/uL (0.0-0.4); Eosinophils Percent Auto 1.7 % (0-4); Hematocrit 29.4 % (37-47); Hemoglobin 8.1 g/dl (12.0-16.0); Imm Gran Abs Auto 0.04 X10*3/uL (0.00-0.03); Imm Gran Pct Auto 0.4 % (0.0-0.4); Lymphocytes Percent Auto 10.6 % (20-40); Mean Corpuscular HGB Conc 27.6 g/dl (31.0-35.0); Mean Corpuscular Hemoglobin 21.6 pg (27.0-33.0); Mean Corpuscular Volume 78.4 fL (80-98); Mean Platelet Volume 11.9 fL (9.4-12.3); Monocytes Absolute Auto 0.6 X10*3/uL (0.1-1.2); Monocytes Percent Auto 6.3 % (2-11); Neutrophils Absolute Auto 7.4 X10*3/uL (2.0-8.3); Neutrophils Percent Auto 80.7 % (45-73); Platelet Count 297 X10*3/uL (160-400); Red Blood Count 3.75 X10*6/uL (4.20-5.50); Red Cell Distribution Width 17.5 % (11.0-16.0); White Blood Count 9.2 X10*3/uL (4.8-10.8)
[2020-09-30 14:30] LABS: Alanine Aminotransferase 12 U/L (0-31); Albumin Level 3.8 g/dL (3.5-5.0); Alkaline Phosphatase 97 U/L (39-117); Anion Gap 14 (12-20); Aspartate Amino Transferase 18 U/L (5-31); Bilirubin Total 0.3 mg/dL (0.0-1.0); Blood Urea Nitrogen 16 mg/dL (9-16); Calcium 8.5 mg/dL (8.4-10.2); Carbon Dioxide 26 mmol/L (22-29); Chloride 109 mmol/L (96-108); Cholesterol 160 mg/dL; Estimated Glomerular Filt Rate 53; Glucose Random 85 mg/dL (60-115); HDL Cholesterol 64 mg/dL; LDL Cholesterol Calculated 80 mg/dl; Potassium 5.1 mmol/L (3.3-5.1); Sodium 144 mmol/L (135-145); Total Protein 6.6 g/dL (6.5-8.0); Triglycerides 81 mg/dL
== END 2020-09-30 10:13 | disposition home or self-care (01) ==
LOC: HO.10HDL 10:12
PROVIDERS: Visit Provider Surgery Vascular Surgery
DX: I71.4 Abdominal aortic aneurysm, without rupture (principal); I10 Essential (primary) hypertension; J44.9 Chronic obstructive pulmonary disease, unspecified; F41.9 Anxiety disorder, unspecified
CPT/HCPCS: 36415; 80053; 80061; 82565; 85025

== ENCOUNTER 2020-10-08 09:43 | Outpatient (REF) | payer MEDICARE, MEDICAID, SELFPAY ==
[2020-10-08 13:55] LABS: MANUAL DIFF FLAG NO
[2020-10-08 14:14] LABS: Basophils Absolute Auto 0.1 X10*3/uL (0.0-0.2); Basophils Percent Auto 0.7 % (0-2); Eosinophils Absolute Auto 0.2 X10*3/uL (0.0-0.4); Eosinophils Percent Auto 2.2 % (0-4); Hematocrit 29.6 % (37-47); Hemoglobin 8.3 g/dl (12.0-16.0); Imm Gran Abs Auto 0.02 X10*3/uL (0.00-0.03); Imm Gran Pct Auto 0.3 % (0.0-0.4); Lymphocytes Absolute Auto 1.3 X10*3/uL (1.2-4.9); Lymphocytes Percent Auto 17.5 % (20-40); Mean Corpuscular Hemoglobin 21.8 pg (27.0-33.0); Mean Corpuscular Volume 77.7 fL (80-98); Mean Platelet Volume 11.5 fL (9.4-12.3); Monocytes Absolute Auto 0.5 X10*3/uL (0.1-1.2); Monocytes Percent Auto 6.8 % (2-11); Neutrophils Absolute Auto 5.3 X10*3/uL (2.0-8.3); Neutrophils Percent Auto 72.5 % (45-73); Platelet Count 408 X10*3/uL (160-400); Red Blood Count 3.81 X10*6/uL (4.20-5.50); Red Cell Distribution Width 18.1 % (11.0-16.0); White Blood Count 7.3 X10*3/uL (4.8-10.8)
[2020-10-08 14:16] LABS: Anion Gap 16 (12-20); Blood Urea Nitrogen 17 mg/dL (9-16); Calcium 8.7 mg/dL (8.4-10.2); Carbon Dioxide 24 mmol/L (22-29); Chloride 106 mmol/L (96-108); Estimated Glomerular Filt Rate 46; Glucose Random 106 mg/dL (60-115); Potassium 4.3 mmol/L (3.3-5.1); Sodium 142 mmol/L (135-145)
[2020-10-08 14:23] LABS: B Type Natriuretic Peptide 109 pg/mL (<100); Troponin-I High Sensitivity 6.8 ng/L (<3.5-17.0)
[2020-10-08 15:29] LABS: Erythrocyte Sedimentation Rate 40 MM/HR (0-20)
== END 2020-10-08 09:44 | disposition home or self-care (01) ==
LOC: HO.LAB 09:43
PROVIDERS: PCP Internal Medicine Medical Oncology; Visit Provider Hospitalist
DX: R06.00 Dyspnea, unspecified (principal); R00.0 Tachycardia, unspecified; J43.2 Centrilobular emphysema
CPT/HCPCS: 36415; 80048; 83880; 84484; 85025; 85652; 93005; 99202

== ENCOUNTER 2020-10-16 12:21 | Outpatient (REF) | payer MEDICARE, MEDICAID, SELFPAY ==
[2020-10-16 14:15] LABS: Hemoglobin 8.6 g/dl (12.0-16.0); Lymphocytes Percent Auto 15.8 % (20-40); MANUAL DIFF FLAG SCAN; Mean Corpuscular Hemoglobin 21.2 pg (27.0-33.0); Red Blood Count 4.06 X10*6/uL (4.20-5.50); SCAN SMEAR FLAG 1
[2020-10-16 14:18] LABS: Basophils Percent Auto 0.4 % (0-2); Eosinophils Absolute Auto 0.3 X10*3/uL (0.0-0.4); Eosinophils Percent Auto 3.1 % (0-4); Hematocrit 31.7 % (37-47); Imm Gran Abs Auto 0.03 X10*3/uL (0.00-0.03); Imm Gran Pct Auto 0.3 % (0.0-0.4); Immature Retic Fraction 23.6 % (3.0-15.9); Lymphocytes Absolute Auto 1.4 X10*3/uL (1.2-4.9); Mean Corpuscular HGB Conc 27.1 g/dl (31.0-35.0); Mean Corpuscular Volume 78.1 fL (80-98); Mean Platelet Volume 11.4 fL (9.4-12.3); Monocytes Absolute Auto 0.8 X10*3/uL (0.1-1.2); Monocytes Percent Auto 8.8 % (2-11); Neutrophils Absolute Auto 6.4 X10*3/uL (2.0-8.3); Neutrophils Percent Auto 71.6 % (45-73); Platelet Count 354 X10*3/uL (160-400); Red Cell Distribution Width 17.9 % (11.0-16.0); Retic HGB Equivalent 19.7 pg (30.0-35.0); Reticulocyte Percent 1.5 % (0.5-1.8); Reticulocytes Absolute 0.059 X10*6/uL (0.026-0.095)
[2020-10-16 15:00] LABS: SLIDE REVIEW VERIFIED
[2020-10-16 17:55] LABS: Ferritin 10 ng/mL (10-250)
== END 2020-10-16 12:22 | disposition home or self-care (01) ==
LOC: HO.10HDL 12:21
PROVIDERS: Visit Provider Internal Medicine Medical Oncology
DX: D50.9 Iron deficiency anemia, unspecified (principal)
CPT/HCPCS: 36415; 82728; 85025; 85045

== ENCOUNTER 2020-11-04 11:33 | Emergency (ER) | payer MEDICARE, MEDICAID, SELFPAY ==
--- NOTE | 2020-11-04 | ECG_ITS ---
Test Reason : CHEST PAIN Blood Pressure : / mmHG Vent. Rate : 086 BPM Atrial Rate : 086 BPM P-R Int : 120 ms QRS Dur : 076 ms QT Int : 400 ms P-R-T Axes : 084 054 061 degrees QTc Int : 478 ms Sinus rhythm with Premature supraventricular complexes Otherwise normal ECG When compared with ECG of 16-AUG-2020 14:38, No significant change was found Referred By: Generic ED Physician Electronically Signed By:JOHAN VANCE MD
--- NOTE | ~2020-11-04 | XR_ITS ---
EXAMINATION: XR CHEST CLINICAL INFORMATION: Shortness of breath and chest tightness. COMPARISON: Previous chest x-ray and chest CT 08/16/2020 TECHNIQUE: Frontal view of the chest was obtained. FINDINGS: The cardiac and mediastinal contours are normal. There is biapical pleural and parenchymal scarring, right greater than left that appears unchanged. The lungs are otherwise clear. There is no pleural effusion or pneumothorax. There are old right anterior fourth and fifth rib fractures. Bony structures are otherwise unremarkable. XR/XR chest 1V IMPRESSION: No evidence for acute disease in the chest.
[2020-11-04 11:39] VITALS: BP 124/73; PULSE 88; RESP 34; TEMP 36.5; O2SAT 97; BMI 20.9
[2020-11-04 11:46] LABS: Glucose, Whole Blood 121 mg/dL (60-115)
[2020-11-04 11:52] LABS: MANUAL DIFF FLAG NO
[2020-11-04 12:08] LABS: Basophils Percent Auto 0.4 % (0-2); Eosinophils Absolute Auto 0.2 X10*3/uL (0.0-0.4); Eosinophils Percent Auto 2.4 % (0-4); Hematocrit 31.2 % (37-47); Hemoglobin 8.7 g/dl (12.0-16.0); Imm Gran Abs Auto 0.03 X10*3/uL (0.00-0.03); Imm Gran Pct Auto 0.3 % (0.0-0.4); Lymphocytes Absolute Auto 1.3 X10*3/uL (1.2-4.9); Lymphocytes Percent Auto 13.1 % (20-40); Mean Corpuscular HGB Conc 27.9 g/dl (31.0-35.0); Mean Corpuscular Hemoglobin 20.9 pg (27.0-33.0); Mean Platelet Volume 11.3 fL (9.4-12.3); Monocytes Absolute Auto 0.7 X10*3/uL (0.1-1.2); Neutrophils Absolute Auto 7.6 X10*3/uL (2.0-8.3); Neutrophils Percent Auto 76.8 % (45-73); Platelet Count 344 X10*3/uL (160-400); Red Blood Count 4.16 X10*6/uL (4.20-5.50); Red Cell Distribution Width 17.8 % (11.0-16.0); White Blood Count 9.9 X10*3/uL (4.8-10.8)
[2020-11-04 12:13] LABS: Prothrombin Time 12.3 SEC (10.8-13.0)
[2020-11-04 12:33] VITALS: BP 111/47; PULSE 91; RESP 28; TEMP 36.4; O2SAT 95
[2020-11-04 12:38] LABS: Anion Gap 14 (12-20); Blood Urea Nitrogen 15 mg/dL (9-16); Calcium 9.4 mg/dL (8.4-10.2); Carbon Dioxide 24 mmol/L (22-29); Chloride 106 mmol/L (96-108); Creatinine Clr Calc Pharmacy 45.6; Estimated Glomerular Filt Rate 57; Glucose Random 92 mg/dL (60-115); Potassium 4.4 mmol/L (3.3-5.1); Sodium 140 mmol/L (135-145)
[2020-11-04 13:41] LABS: Troponin-I High Sensitivity 5.3 ng/L (<3.5-17.0)
--- NOTE | 2020-11-04 13:59 | ED_ITS ---
HPI - Chest Pain General Chief Complaint: Dyspnea Stated Complaint: outpatient response Time Seen by Provider: 11/04/20 12:23 Source: patient Mode of arrival: ambulatory History of Present Illness HPI narrative: 75-year-old female with a past medical history of asthma, COPD, CVA, emphysema, HTN, glaucoma, GERD, AAA, presenting to ED from outpatient phlebotomy s/p sudden onset SOB, increased anxiety, chest tightness while getting labs drawn [employer]. Admits was at cardiology appointment earlier then sent for blood draw and they were having difficulty with lab work and stuck her >5x prior to symptoms beginning. Denies symptoms at present, reports symptomatic improvement. Denies fever, chills, cough, abdominal pain, nausea/vomiting MD complaint: chest pain Related Data Home Medications Medication Instructions Recorded Confirmed aspirin 81 mg tablet,delayed 81 mg PO DAILY 04/18/20 11/04/20 release atorvastatin 80 mg tablet 80 mg PO DAILY 04/18/20 11/04/20 clopidogrel 75 mg tablet 75 mg PO DAILY 04/18/20 11/04/20 latanoprost 0.005 % eye drops 1 drp OPHTHALMIC (EYE) BEDTIME 04/18/20 11/04/20 lisinopril 30 mg tablet 30 mg PO DAILY 04/18/20 11/04/20 omeprazole 20 mg capsule,delayed 20 mg PO DAILY 04/18/20 11/04/20 release ranitidine HCl 150 mg tablet 150 mg PO BID 04/18/20 11/04/20 Previous Rx's Medication Instructions Recorded albuterol sulfate 1 inh INHALATION QID PRN #8.5 g 08/16/20 albuterol sulfate 5 mg INHALATION Q4H PRN #30 ea 08/16/20 nebulizers [AeroEclipse II #1 ea 08/16/20 Nebulizer] fluticasone fur. 100 mcg-umeclid 1 inh INHALATION DAILY 30 Days #60 10/08/20 62.5 mcg-vilant 25 mcg ea inhalat.powder isosorbide mononitrate 30 mg 30 mg PO DAILY #30 tab 11/04/20 tablet,extended release 24 hr nitroglycerin 0.4 mg sublingual 0.4 mg SUBLINGUAL Q5M PRN #30 tab 11/04/20 tablet Allergies Allergy/AdvReac Type Severity Reaction Status Date / Time No Known Allergies Allergy Verified 11/04/20 11:43 Review of Systems Review of Systems: Constitutional: No Fever, No Chills Cardiovascular: + Chest Pain, + SOB, No Dyspnea on Exertion, No Orthopnea, No Edema, + Palpitations Respiratory: No Cough, No Dyspnea Gastrointestinal: No Nausea, No Vomiting, No Abdominal pain Musculoskeletal: No joint pain, No Myalgias, No Joint Swelling Skin: No Skin Lesions, No rash Neuro: No Weakness, No Numbness, No Paresthesias, No Dizziness Psych: + Anxiety/Panic Yes all other systems are reviewed and are negative [facility] Past Medical History Attestation statement: The following information was validated with the patient. Medical History (Updated 11/04/20 @ 16:05 by JORGE Christian) Asthma COPD (chronic obstructive pulmonary disease) CVA (cerebral vascular accident) Dyspnea Emphysema of lung Essential hypertension Glaucoma Mild acid reflux Tachycardia Surgical History (Updated 11/04/20 @ 11:39 by Bucky Lawler MD) H/O carotid endarterectomy (04/01/20) History of AAA (abdominal aortic aneurysm) repair Hx of shoulder surgery Hx of varicose vein stripping Family History Family History Father No problems noted. Mother No problems noted. Sister No problems noted. Sister No problems noted. Sister No problems noted. Sister No problems noted. Sister Cancer Son No problems noted. Social History Social History Alcohol intake: unknown Smoking Status: Current every day smoker Cigarettes Per Day: 31 Use of substances other than those prescribed or required for medical reasons: Unknown Physical Exam Vital Signs: Vital Signs: Last Vital Signs Temp 98.0 F 11/04/20 15:45 Pulse 90 11/04/20 15:52 Resp 20 11/04/20 15:45 BP 135/52 L 11/04/20 15:45 Pulse Ox 96 11/04/20 15:45 Oxygen Flow Rate 2 11/04/20 11:39 Body Mass Index 20.9 Const: General: cooperative and healthy appearing Orientation/consciousness: patient oriented x3 Limitations: no limitations HENMT: Head: Yes normal to inspection Ears: hearing grossly normal bilaterally General nose exam: Normal external nose present Face and sinus: Yes normal facial exam Eyes: General: appearance normal, both eyes and all related structures EOM: EOMs intact bilaterally Neck: Neck: Yes normal visual inspection Resp: Effort & Inspection: normal respiratory effort Auscultation: clear to auscultation bilaterally and diminished lung sounds bilateral in the lower lung pinto Cardio: Rate: regular rate Heart sounds: S1 normal heart sound present and S2 normal heart sound present GI: Inspection: Yes normal to inspection Palpation (GI): Soft to palpation, nontender, no guarding and not rigid Skin: Rashes: no rashes Wounds: no wounds Neuro: General: patient oriented x3 Extrem: General: Yes normal to inspection and Yes no pedal edema Course Course Course Narrative: -no leukocytosis, H&H at patient's baseline, troponin 5.3 >> will obtain 3hr repeat, labs otherwise unremarkable -1603--repeat troponin 5.5, NM unlikely Results discussed with patient including worrisome signs and symptoms and strict return precautions. Patient is to follow up with Cardiology outpatient. She verbalized understanding feel safe for discharge home MDM - Chest Pain MDM Narrative Medical decision making narrative: 75-year-old female with a past medical history of asthma, COPD, CVA, emphysema, HTN, glaucoma, GERD, AAA, presenting to ED from outpatient phlebotomy s/p sudden onset SOB, increased anxiety, chest tightness while getting labs drawn [employer]. On exam initially mildly tachypneic, NAD, asymptomatic at present, decreased breath sounds bibasilar, nontoxic, concern for anxiety reaction vs acute on chronic COPD. Low concern for ACS/PE/CHF or sepsis Plan: EKG, labs, CXR, reassess Medical Records Data Attestation: I reviewed the patient's medical records. Lab Data Attestation: I reviewed the patient's lab results. Result diagrams: 11/04/20 11:12 11/04/20 11:12 Labs: Lab Results 11/04/20 11/04/20 11/04/20 Range/Units 11:12 11:12 11:12 WBC 9.9 (4.8-10.8) X10*3/uL RBC 4.16 L (4.20-5.50) X10*6/uL Hgb 8.7 L (12.0-16.0) g/dl Hct 31.2 L (37-47) % MCV 75.0 L (80-98) fL MCH 20.9 L (27.0-33.0) pg MCHC 27.9 L (31.0-35.0) g/dl RDW 17.8 H (11.0-16.0) % Plt Count 344 (160-400) X10*3/uL MPV 11.3 (9.4-12.3) fL Immature Gran % (Auto) 0.3 (0.0-0.4) % Neut % (Auto) 76.8 H (45-73) % Lymph % (Auto) 13.1 L (20-40) % Chase % (Auto) 7.0 (2-11) % Eos % (Auto) 2.4 (0-4) % Baso % (Auto) 0.4 (0-2) % Lymph # (Auto) 1.3 (1.2-4.9) X10*3/uL Chase # (Auto) 0.7 (0.1-1.2) X10*3/uL Eos # (Auto) 0.2 (0.0-0.4) X10*3/uL Baso # (Auto) 0.0 (0.0-0.2) X10*3/uL Abs Immat Gran (auto) 0.03 (0.00-0.03) X10*3/uL Absolute Neuts (auto) 7.6 (2.0-8.3) X10*3/uL Absolute Nucleated RBC 0.000 (0.0-0.012) X10*3/uL Nucleated RBC % (auto) 0.0 (0.0-0.2) /100WBC PT 12.3 (10.8-13.0) SEC INR 1.0 (0.9-1.1) Sodium 140 (135-145) mmol/L Potassium 4.4 (3.3-5.1) mmol/L Chloride 106 (96-108) mmol/L Carbon Dioxide 24 (22-29) mmol/L Anion Gap 14 (12-20) BUN 15 (9-16) mg/dL Creatinine 0.96 (0.5-1.4) mg/dL Estim Creat Clear Calc 45.6 Estimated GFR 57 POC Glucose (60-115) mg/dL Random Glucose 92 (60-115) mg/dL Calcium 9.4 D (8.4-10.2) mg/dL Troponin I High Sens (<3.5-17.0) ng/L 11/04/20 11/04/20 11/04/20 Range/Units 11:42 11:51 14:51 WBC (4.8-10.8) X10*3/uL RBC (4.20-5.50) X10*6/uL Hgb (12.0-16.0) g/dl Hct (37-47) % MCV (80-98) fL MCH (27.0-33.0) pg MCHC (31.0-35.0) g/dl RDW (11.0-16.0) % Plt Count (160-400) X10*3/uL MPV (9.4-12.3) fL Immature Gran % (Auto) (0.0-0.4) % Neut % (Auto) (45-73) % Lymph % (Auto) (20-40) % Chase % (Auto) (2-11) % Eos % (Auto) (0-4) % Baso % (Auto) (0-2) % Lymph # (Auto) (1.2-4.9) X10*3/uL Chase # (Auto) (0.1-1.2) X10*3/uL Eos # (Auto) (0.0-0.4) X10*3/uL Baso # (Auto) (0.0-0.2) X10*3/uL Abs Immat Gran (auto) (0.00-0.03) X10*3/uL Absolute Neuts (auto) (2.0-8.3) X10*3/uL Absolute Nucleated RBC (0.0-0.012) X10*3/uL Nucleated RBC % (auto) (0.0-0.2) /100WBC PT (10.8-13.0) SEC INR (0.9-1.1) Sodium (135-145) mmol/L Potassium (3.3-5.1) mmol/L Chloride (96-108) mmol/L Carbon Dioxide (22-29) mmol/L Anion Gap (12-20) BUN (9-16) mg/dL Creatinine (0.5-1.4) mg/dL Estim Creat Clear Calc Estimated GFR POC Glucose 121 H (60-115) mg/dL Random Glucose (60-115) mg/dL Calcium (8.4-10.2) mg/dL Troponin I High Sens 5.3 5.5 (<3.5-17.0) ng/L Discharge Plan Discharge Clinical Impression: Chest pain, Anxiety Patient Disposition: Home, Self-Care Instructions: Chest Pain (ED), Anxiety (ED) Additional Instructions: Your blood work was reassuring today in the ED It is important that you follow-up with cardiology If her symptoms persist or worsen, recur, constant worsening chest pain, or shortness of breath please return to the ED immediately Continue taking home prescribed medications Prescriptions: No Action albuterol sulfate 90 mcg/actuation HFA aerosol inhaler 1 inh inhalation QID PRN (Reason: shortness of breath or wheezing) Qty: 8.5 RF: 0 albuterol sulfate 2.5 mg/0.5 mL solution for nebulization 5 mg inhalation Q4H PRN (Reason: shortness of breath or wheezing) Qty: 30 RF: 0 (DME) AeroEclipse II Nebulizer Misc See Rx Instructions .ROUTE .MEDSUPPLY Qty: 1 RF: 0 omeprazole 20 mg capsule,delayed release(DR/EC) 20 mg PO DAILY RF: 0 lisinopril 30 mg tablet 30 mg PO DAILY RF: 0 aspirin 81 mg tablet,delayed release (DR/EC) 81 mg PO DAILY RF: 0 clopidogrel 75 mg tablet 75 mg PO DAILY RF: 0 atorvastatin 80 mg tablet 80 mg PO DAILY RF: 0 latanoprost 0.005 % drops 1 drp ophthalmic (eye) BEDTIME RF: 0 ranitidine HCl 150 mg tablet 150 mg PO BID RF: 0 isosorbide mononitrate 30 mg tablet extended release 24 hr 30 mg PO DAILY Qty: 30 RF: 2 nitroglycerin 0.4 mg tablet, sublingual 0.4 mg sublingual Q5M PRN (Reason: chest pain) Qty: 30 RF: 5 Trelegy Ellipta 100-62.5-25 mcg blister with device 1 inh inhalation DAILY 30 Days Qty: 60 RF: 11 Referrals: Bucky Lawler MD [Physician] - 3 days
[2020-11-04 14:08] VITALS: BP 151/59; PULSE 92; RESP 20; O2SAT 90
[2020-11-04 15:30] LABS: Troponin-I High Sensitivity 5.5 ng/L (<3.5-17.0)
[2020-11-04 15:45] VITALS: BP 135/52; PULSE 91; RESP 20; TEMP 36.7; O2SAT 96
[2020-11-04 15:52] VITALS: PULSE 90; O2SAT 92
[2020-11-04] MEDS: Albuterol/Iprat 2.5/0.5MG 3 ML AMPUL.NEB INHALE (15:52)
== END 2020-11-04 16:59 | disposition home or self-care (01) ==
LOC: HO.ED 11:34
PROVIDERS: Physician Assistant; Emergency Provider Emergency Medicine; PCP Internal Medicine Medical Oncology; Visit Provider Internal Medicine
DX: R07.9 Chest pain, unspecified (principal); R06.00 Dyspnea, unspecified; F41.1 Generalized anxiety disorder; F17.210 Nicotine dependence, cigarettes, uncomplicated; Z71.6 Tobacco abuse counseling; Z79.899 Other long term (current) drug therapy; Z79.82 Long term (current) use of aspirin
CPT/HCPCS: 36415; 71045; 80048; 82947; 84484; 85025; 85610; 93005; 94640; 99212; 99285

== ENCOUNTER → 2020-11-05 09:30 | Outpatient (REF) | payer MEDICARE, MEDICAID, SELFPAY ==
--- NOTE | 2020-11-05 09:33 | CA_ITS ---
Transthoracic Echocardiogram Amended Patient (Last, First, Middle): Bridget Rabago, Gender: Female Date of : 1945 Age: 75 Procedure Date: 11/05/2020 Procedure Type: Transthoracic Echocardiogram Location: OP Height: 165.1 cm Weight: 57.15 kg BSA: 1.63 m2 Heart Rate: bpm BP: 138 / 68 mmHg Wool Hat Flanger: Manjit MD: Bucky Lawler MD Door Liner Helper: Dakota Jeong MD Symptoms: R07.2 - Precordial pain Study Quality: Fair ECG Rhythm: Sinus with extra beats Conclusions: - 1. Normal LV systolic function with impaired relaxation filling pattern 2. Fibrocalcific aortic valve changes noted and moderate mitral annular calcification noted with mild aortic regurgitation 3. No pericardial effusion Findings Left Ventricle Normal left ventricular size, thickness, and systolic function. The visually estimated ejection fraction is between 60-65%. Spectral Doppler is indicative of an impaired relaxation filling pattern. E/E prime ratio is between 8 and 15 consistent with indeterminate filling pressures. Right Ventricle Normal right ventricular cavity size and systolic function. Atria Both atria are normal in size. There is lipomatous hypertrophy of the interatrial septum. There is no evidence of interatrial shunt. Aortic Valve The aortic valve was not well visualized. There is mild calcification of the aortic valve. There is no aortic valve stenosis. There is mild aortic valve regurgitation. Mitral Valve There is moderate anterior and posterior mitral leaflet thickening. There is moderate mitral annular calcification. There is trace mitral valve regurgitation. There is no mitral valve stenosis. Pulmonic Valve The pulmonic valve was not well visualized. Tricuspid Valve Likely normal tricuspid valve structure and function. Tricuspid regurgitation envelope is inadequate for calculation of right ventricular systolic pressure. Great Vessels All visible segments of the aorta are normal in size. The pulmonary artery was not well visualized. Venous The inferior vena cava is normal in size and collapses greater than 50% with inspiration. Pericardium/Pleural There is no evidence of pericardial effusion. Prior Study Comparison No significant change compared to prior study dated: 04/19/2020. Measurements 2D Linear Measurements RVIDd: 2.62 RVIDd Index: 1.61 IVSd: 0.78 0.6-0.9/0.6-1.0 cm LVIDd: 4.78 3.9-5.3/4.2-5.9 cm LVIDd Index: 2.93 2.4-3.2/2.2-3.1 cm/m2 LVIDs: 3.23 2.0-3.6 cm LVPWd: 0.93 0.7-1.1 cm Ao Root: 2.50 2.1-3.5 cm LA Diam: 3.40 2.7-3.8/3.0-4.0 cm LAIDs Index: 2.09 1.5-2.3 cm/m2 LV Mass: 170.32 67-162/88-224 g LV Mass Index: 104.49 43-95/49-115 g/m2 LVOT Diam: 2.20 3.0+(-)1.3 cm 2D Volumes LA Vol: 21.50 2D Systolic Function EF 4C: 41.70 >55% EF 2C: 67.50 >55% Mitral Valve MV Pk E: 0.91 MV PK A: 1.38 MV Decel Time: 335.00 E/A: 0.70 E'Lateral: 7.29 E'Medial: 4.57 E/E' Med: 19.80 E/E' Lat: 12.40 Aortic Valve AoV Pk Leonardo: 3.08 AoV Mn Leonardo: 1.44 AoV VTI: 0.37 AoV Pk Grad: 38.00 Aov Mn Grad: 10.00 [place] Cont.VTI: 2.80 AI Pk Leonardo: 4.04 AI [place]: 1.65 LVOT LVOT Pk Leonardo: 1.42 LVOT Mn Leonardo: 1.10 LVOT VTI: 0.28 LVOT Pk Grad: 8.00 LVOT Mn Grad: 5.00 LVOT Diam: 2.20 LVOT Area: 3.80 Diastolic Function MV Pk E: 0.91 MV Pk A: 1.38 E/A: 0.70 E'Medial: 4.57 E/E' Med: 19.80 E' Laterial: 7.29 E/E' Lat: 12.40 Tricuspid Valve RA Press: 3.00 Great Vessels Aorta Ao Root-2D: 2.50 2.0-3.7 cm Ao Asc: 2.80 2.1-3.4 cm Ao Arch: 2.60 Updated in Other Vendor System with Status of Final Dakota Jeong MD electronically signed on 11/06/2020 1:13:21 PM with status of Final
== END ==
LOC: HO.CARD 09:30
PROVIDERS: Visit Provider Internal Medicine
DX: R07.2 Precordial pain (principal)
CPT/HCPCS: 93306

== ENCOUNTER → 2020-11-22 10:22 | Outpatient (BNVA) | payer MEDICARE, MEDICAID, SELFPAY | PROVIDERS: PCP Internal Medicine Medical Oncology; Visit Provider Hospitalist | DX: J43.2 Centrilobular emphysema (principal); J44.1 Chronic obstructive pulmonary disease with (acute) exacerbation; R06.00 Dyspnea, unspecified | CPT/HCPCS: 99212 ==

== ENCOUNTER 2021-02-09 15:09 | Emergency (ER) | payer MEDICARE, MEDICAID, SELFPAY ==
[2021-02-09 15:29] VITALS: BP 142/65; PULSE 95; RESP 18; TEMP 36.1; O2SAT 98; BMI 29.2
== END 2021-02-09 18:45 | disposition left against medical advice (07) ==
PROVIDERS: Emergency Provider Emergency Medicine; PCP Internal Medicine Medical Oncology
DX: R10.10 Upper abdominal pain, unspecified (principal)
CPT/HCPCS: 99282

== ENCOUNTER 2021-02-11 02:54 | Emergency (ER) | payer MEDICARE, MEDICAID, SELFPAY ==
--- NOTE | ~2021-02-11 | CT_ITS ---
EXAMINATION CT CHEST, ABDOMEN AND PELVIS WITH CONTRAST CLINICAL INFORMATION: Cough, pain and tachypnea. COMPARISON: 08/27/2020 and 08/16/2020 TECHNIQUE: Multidetector volumetric CT imaging of the chest, abdomen and pelvis was obtained after the administration of 85 mL of intravenous Omnipaque 350 without immediate adverse reactions. Coronal and sagittal reformats were reviewed. This CT examination was performed using dose optimization techniques as appropriate, variously including the following: *Automated exposure control *Adjustment of mA and/or kV according to patient size (this includes techniques or standardized protocols for targeted exams where dose is matched to indication/reason for exam; i.e. extremities or head) *Use of iterative reconstruction technique DLP: 785 mGy-cm. FINDINGS: CHEST LUNGS/PLEURA: Moderate upper lobe predominant centrilobular emphysema. Mild diffuse bronchial wall thickening without bronchiectasis. No pneumonitis, parenchymal consolidation or suspicious pulmonary nodule. There is no pleural effusion. No pleural mass or thickening. MEDIASTINUM/MADDIE: Normal heart size. Coronary calcifications. No pericardial effusion. No mediastinal or hilar adenopathy. CHEST WALL/AXILLA: Unremarkable. ABDOMEN/PELVIS HEPATOBILIARY: Liver normal in size, contour and morphology. No suspicious lesions. No intra or extrahepatic biliary dilation. Gallbladder unremarkable. PANCREAS: Unremarkable. SPLEEN: Unremarkable. ADRENAL GLANDS: Unremarkable. KIDNEYS, URETERS AND BLADDER: Kidneys enhance symmetrically. Stable cortical scarring along the posterior RIGHT kidney. No hydronephrosis or perinephric abnormality. Ureters normal in course and caliber. No urinary calculi. Bladder unremarkable. GASTROINTESTINAL TRACT: Small sliding-type hiatal hernia. Stomach unremarkable. Left colonic diverticulosis without evidence of diverticulitis. Normal appendix. PELVIC VISCERA: Uterus and adnexa unremarkable. LYMPH NODES: No lymphadenopathy. PERITONEUM/BODY WALL: Unremarkable. VASCULAR STRUCTURES: Aorta is atherosclerotic. 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 Excluded aneurysm sac stable in size measuring 3.6 cm transversely. OSSEOUS STRUCTURES New age-indeterminate inferior endplate compression fracture at T8 resulting in 20% height loss anteriorly. Stable mild superior endplate compression fracture at L3. CT/CT abdomen pelvis w con IMPRESSION: * No acute pneumonitis or parenchymal consolidation. * Moderate emphysema and chronic bronchitis. * No bowel obstruction or other acute intra-abdominal pathology. * Left colonic diverticulosis without evidence of diverticulitis. 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 * Stable size of the excluded infrarenal abdominal aortic aneurysm sac measuring 3.6 cm. * New age-indeterminate inferior endplate compression fracture at T8 resulting in 20% height loss.
[2021-02-11 03:22] VITALS: BP 144/73; PULSE 80; RESP 22; TEMP 36.8; O2SAT 97; BMI 22.3
[2021-02-11 04:01] VITALS: BP 129/58; PULSE 78; RESP 27; O2SAT 97
--- NOTE | 2021-02-11 04:04 | PC.NURSE ---
crackles noted in the bases, sat 97% rr elevated 27.
--- NOTE | 2021-02-11 04:29 | ED.BACK ---
HPI - Back Pain/Injury General Chief Complaint: Back Pain/Injury Stated Complaint: back pain Time Seen by Provider: 02/11/21 04:00 Source: patient Mode of arrival: ambulatory History of Present Illness HPI Narrative: This is a 75-year-old female presentation for mid back pain that has been ongoing for 3 days but has not been associated with fever, chills, sore throat, but patient states she has had a cough that is productive of phlegm and significant pain on coughing. In addition, she states that the pain increases with deep inspiration and patient has difficulty tolerating sitting up to straight are lying on her back. Patient goes to pain management and last had an injection approximately 2 weeks ago. Related Data Home Medications Medication Instructions Recorded Confirmed aspirin 81 mg tablet,delayed 81 mg PO DAILY 04/18/20 11/22/20 release atorvastatin 80 mg tablet 80 mg PO DAILY 04/18/20 11/22/20 clopidogrel 75 mg tablet 75 mg PO DAILY 04/18/20 11/22/20 latanoprost 0.005 % eye drops 1 drp OPHTHALMIC (EYE) BEDTIME 04/18/20 11/22/20 lisinopril 30 mg tablet 30 mg PO DAILY 04/18/20 11/22/20 omeprazole 20 mg capsule,delayed 20 mg PO DAILY 04/18/20 11/22/20 release ranitidine HCl 150 mg tablet 150 mg PO BID 04/18/20 11/22/20 Previous Rx's Medication Instructions Recorded albuterol sulfate 2.5 mg/0.5 mL 5 mg INHALATION Q4H PRN #30 ea 08/16/20 solution for nebulization albuterol sulfate 90 mcg/actuation 1 inh INHALATION QID PRN #8.5 g 08/16/20 aerosol inhaler nebulizers (AeroEclipse II #1 ea 08/16/20 Nebulizer) fluticasone fur. 100 mcg-umeclid 1 inh INHALATION DAILY 30 Days #60 10/08/20 62.5 mcg-vilant 25 mcg ea inhalat.powder (Trelegy Ellipta) nitroglycerin 0.4 mg sublingual 0.4 mg SUBLINGUAL Q5M PRN #30 tab 11/04/20 tablet doxycycline hyclate 100 mg capsule 100 mg PO BID 10 Days #20 cap 11/22/20 ipratropium 0.5 mg-albuterol 3 mg 3 ml INHALATION QID 30 Days #360 ml 11/22/20 (2.5 mg base)/3 mL nebulization soln prednisone 20 mg tablet 20 mg PO DAILY 10 Days #15 tab 11/22/20 clopidogrel 75 mg tablet (Plavix) 75 mg PO DAILY #30 tab 11/28/20 isosorbide mononitrate 30 mg 30 mg PO DAILY #30 tab 01/30/21 tablet,extended release 24 hr Allergies Allergy/AdvReac Type Severity Reaction Status Date / Time No Known Allergies Allergy Verified 11/22/20 10:55 Review of Systems Review of Systems: Pertinent positives and negatives as stated in HPI 10 point review of systems is otherwise negative. [facility] Past Medical History Source: nursing notes reviewed Medical History Asthma COPD (chronic obstructive pulmonary disease) CVA (cerebral vascular accident) Dyspnea Emphysema of lung Essential hypertension Glaucoma Mild acid reflux Tachycardia Surgical History H/O carotid endarterectomy (04/01/20) History of AAA (abdominal aortic aneurysm) repair Hx of shoulder surgery Hx of varicose vein stripping Family History Family History Father No problems noted. Mother No problems noted. Sister No problems noted. Sister No problems noted. Sister No problems noted. Sister No problems noted. Sister Cancer Son No problems noted. Social History Social History Alcohol intake: unknown Cigarettes Per Day: 31 Advance Directives: No Physical Exam Vital Signs: Vital Signs: Last Vital Signs Temp 98.3 F 02/11/21 03:22 Pulse 74 02/11/21 06:00 Resp 20 02/11/21 06:00 BP 115/65 02/11/21 06:00 Pulse Ox 96 02/11/21 06:00 Body Mass Index 22.3 VITAL SIGNS: Reviewed. GENERAL: Well developed, well nourished, in no acute distress. HEAD: Normocephalic/atraumatic EYES: PERRLA, EOMI OROPHARYNX: no oral lesions noted, posterior pharynx clear NECK: Supple, no adenopathy LUNGS: Normal breath sounds. No adventitious sounds or accessory muscle use. SpO2<97> CARDIOVASCULAR: Regular rate and rhythm without noted murmurs, no JVD or lower extremity edema. ABDOMEN: Soft, non-tender, mild distended with hypoactive bowel sounds, no pulsatile mass noted BACK: Tenderness on a palpation to mid thoracic vertebra but no step-offs noted MUSCULOSKELETAL: No tenderness, deformities, or effusions noted on gross inspection. EXTREMITIES: No cyanosis, clubbing or edema. SKIN: Inspection of the skin reveals no rashes NEUROLOGIC: Alert and oriented x 4. Strength and sensation to light touch were grossly intact x 4. Course Course Course Narrative: 75-year-old female with history and clinical presentation concerning for possible pneumonia, pancreatitis, compression fracture. Review of all investigations negative for acute findings other than new compression fracture of T8, but patient got complete pain relief after receiving 1 g of Tylenol. All results discussed with her at bedside and she was instructed to follow-up with her primary care provider for re-evaluation. MDM - Back Pain/Injury Lab Data Result diagrams: 02/11/21 04:51 02/11/21 04:51 Labs: Lab Results 02/11/21 02/11/21 02/11/21 Range/Units 04:42 04:51 04:51 WBC 7.1 (4.8-10.8) X10*3/uL RBC 4.88 (4.20-5.50) X10*6/uL Hgb 13.1 D (12.0-16.0) g/dl Hct 42.6 D (37-47) % MCV 87.3 (80-98) fL MCH 26.8 L (27.0-33.0) pg MCHC 30.8 L (31.0-35.0) g/dl RDW 18.5 H (11.0-16.0) % Plt Count 234 D (160-400) X10*3/uL MPV 10.5 (9.4-12.3) fL Immature Gran % (Auto) 0.3 (0.0-0.4) % Neut % (Auto) 68.8 (45-73) % Lymph % (Auto) 18.0 L (20-40) % [place] % (Auto) 8.5 (2-11) % Eos % (Auto) 4.0 (0-4) % Baso % (Auto) 0.4 (0-2) % Lymph # (Auto) 1.3 (1.2-4.9) X10*3/uL [place] # (Auto) 0.6 (0.1-1.2) X10*3/uL Eos # (Auto) 0.3 (0.0-0.4) X10*3/uL Baso # (Auto) 0.0 (0.0-0.2) X10*3/uL Abs Immat Gran (auto) 0.02 (0.00-0.03) X10*3/uL Absolute Neuts (auto) 4.9 (2.0-8.3) X10*3/uL Absolute Nucleated RBC 0.000 (0.0-0.012) X10*3/uL Nucleated RBC % (auto) 0.0 (0.0-0.2) /100WBC Sodium 141 (135-145) mmol/L Potassium 5.2 H (3.3-5.1) mmol/L Chloride 107 (96-108) mmol/L Carbon Dioxide 26 (22-29) mmol/L Anion Gap 13 (12-20) BUN 29 H D (9-16) mg/dL Creatinine 1.03 (0.5-1.4) mg/dL Estim Creat Clear Calc 40.7 Estimated GFR 52 Random Glucose 95 (60-115) mg/dL Lactic Acid (0.5-2.0) mmol/L Calcium 9.3 (8.4-10.2) mg/dL Total Bilirubin 0.3 (0.0-1.0) mg/dL AST 20 (5-31) U/L ALT 11 (0-31) U/L Alkaline Phosphatase 114 (39-117) U/L Troponin I High Sens (<3.5-17.0) ng/L Total Protein 7.3 (6.5-8.0) g/dL Albumin 3.9 (3.5-5.0) g/dL Lipase 14 (8-78) U/L COVID-19 (DEVANTE) Negative (Negative) COVID-19 Clin Com See Note 02/11/21 02/11/21 Range/Units 04:51 04:51 WBC (4.8-10.8) X10*3/uL RBC (4.20-5.50) X10*6/uL Hgb (12.0-16.0) g/dl Hct (37-47) % MCV (80-98) fL MCH (27.0-33.0) pg MCHC (31.0-35.0) g/dl RDW (11.0-16.0) % Plt Count (160-400) X10*3/uL MPV (9.4-12.3) fL Immature Gran % (Auto) (0.0-0.4) % Neut % (Auto) (45-73) % Lymph % (Auto) (20-40) % [place] % (Auto) (2-11) % Eos % (Auto) (0-4) % Baso % (Auto) (0-2) % Lymph # (Auto) (1.2-4.9) X10*3/uL [place] # (Auto) (0.1-1.2) X10*3/uL Eos # (Auto) (0.0-0.4) X10*3/uL Baso # (Auto) (0.0-0.2) X10*3/uL Abs Immat Gran (auto) (0.00-0.03) X10*3/uL Absolute Neuts (auto) (2.0-8.3) X10*3/uL Absolute Nucleated RBC (0.0-0.012) X10*3/uL Nucleated RBC % (auto) (0.0-0.2) /100WBC Sodium (135-145) mmol/L Potassium (3.3-5.1) mmol/L Chloride (96-108) mmol/L Carbon Dioxide (22-29) mmol/L Anion Gap (12-20) BUN (9-16) mg/dL Creatinine (0.5-1.4) mg/dL Estim Creat Clear Calc Estimated GFR Random Glucose (60-115) mg/dL Lactic Acid 1.1 (0.5-2.0) mmol/L Calcium (8.4-10.2) mg/dL Total Bilirubin (0.0-1.0) mg/dL AST (5-31) U/L ALT (0-31) U/L Alkaline Phosphatase (39-117) U/L Troponin I High Sens 4.2 (<3.5-17.0) ng/L Total Protein (6.5-8.0) g/dL Albumin (3.5-5.0) g/dL Lipase (8-78) U/L COVID-19 (DEVANTE) (Negative) COVID-19 Clin Com Discharge Plan Discharge Clinical Impression: Compression fracture of T8 vertebra Patient Disposition: Home, Self-Care Instructions: Vertebral Compression Fracture (ED) Additional Instructions: 1. Resume all home medication as prescribed. 2. Tylenol 1000 mg, orally, every 6 hours as needed for pain control. Do not exceed 4000 mg within 24 hours. 3. Lidocaine patch, this is available [id number] and should be apply to area of maximal tenderness as directed on the outside packaging. 4. Follow-up with your primary care provider in the next 1-2 days for re-evaluation and further outpatient management. Return to the ER for acute worsening of symptoms. Prescriptions: No Action clopidogrel [Plavix] 75 mg tablet 75 mg PO DAILY Qty: 30 RF: 2 isosorbide mononitrate 30 mg tablet extended release 24 hr 30 mg PO DAILY Qty: 30 RF: 0 albuterol sulfate 90 mcg/actuation HFA aerosol inhaler 1 inh inhalation QID PRN (Reason: shortness of breath or wheezing) Qty: 8.5 RF: 0 albuterol sulfate 2.5 mg/0.5 mL solution for nebulization 5 mg inhalation Q4H PRN (Reason: shortness of breath or wheezing) Qty: 30 RF: 0 (DME) AeroEclipse II Nebulizer Misc See Rx Instructions .ROUTE .MEDSUPPLY Qty: 1 RF: 0 omeprazole 20 mg capsule,delayed release(DR/EC) 20 mg PO DAILY RF: 0 lisinopril 30 mg tablet 30 mg PO DAILY RF: 0 aspirin 81 mg tablet,delayed release (DR/EC) 81 mg PO DAILY RF: 0 clopidogrel 75 mg tablet 75 mg PO DAILY RF: 0 atorvastatin 80 mg tablet 80 mg PO DAILY RF: 0 latanoprost 0.005 % drops 1 drp ophthalmic (eye) BEDTIME RF: 0 ranitidine HCl 150 mg tablet 150 mg PO BID RF: 0 nitroglycerin 0.4 mg tablet, sublingual 0.4 mg sublingual Q5M PRN (Reason: chest pain) Qty: 30 RF: 5 Trelegy Ellipta 100-62.5-25 mcg blister with device 1 inh inhalation DAILY 30 Days Qty: 60 RF: 11 ipratropium-albuterol 0.5 mg-3 mg(2.5 mg base)/3 mL solution for nebulization 3 ml inhalation QID 30 Days Qty: 360 RF: 11 prednisone 20 mg tablet 20 mg PO DAILY 10 Days Qty: 15 RF: 0 doxycycline hyclate 100 mg capsule 100 mg PO BID 10 Days Qty: 20 RF: 0 Referrals: Physician,Unknown [Primary Care Provider] - 2 days
[2021-02-11 04:58] LABS: Basophils Percent Auto 0.4 % (0-2); Eosinophils Absolute Auto 0.3 X10*3/uL (0.0-0.4); Hematocrit 42.6 % (37-47); Hemoglobin 13.1 g/dl (12.0-16.0); Imm Gran Abs Auto 0.02 X10*3/uL (0.00-0.03); Imm Gran Pct Auto 0.3 % (0.0-0.4); Lymphocytes Absolute Auto 1.3 X10*3/uL (1.2-4.9); MANUAL DIFF FLAG NO; Mean Corpuscular HGB Conc 30.8 g/dl (31.0-35.0); Mean Corpuscular Hemoglobin 26.8 pg (27.0-33.0); Mean Corpuscular Volume 87.3 fL (80-98); Mean Platelet Volume 10.5 fL (9.4-12.3); Monocytes Absolute Auto 0.6 X10*3/uL (0.1-1.2); Monocytes Percent Auto 8.5 % (2-11); Neutrophils Absolute Auto 4.9 X10*3/uL (2.0-8.3); Neutrophils Percent Auto 68.8 % (45-73); Platelet Count 234 X10*3/uL (160-400); Red Blood Count 4.88 X10*6/uL (4.20-5.50); Red Cell Distribution Width 18.5 % (11.0-16.0); White Blood Count 7.1 X10*3/uL (4.8-10.8)
[2021-02-11 05:12] LABS: COVID-19 Test Negative (Negative); IDNOW Serial# 9DD0AD1C
[2021-02-11 05:13] LABS: Lactic Acid 1.1 mmol/L (0.5-2.0)
[2021-02-11] MEDS: Acetaminophen 325 MG TABLET 975 MG PO (05:13)
[2021-02-11 05:22] LABS: Troponin-I High Sensitivity 4.2 ng/L (<3.5-17.0)
[2021-02-11 05:30] LABS: Alanine Aminotransferase 11 U/L (0-31); Albumin Level 3.9 g/dL (3.5-5.0); Alkaline Phosphatase 114 U/L (39-117); Anion Gap 13 (12-20); Aspartate Amino Transferase 20 U/L (5-31); Bilirubin Total 0.3 mg/dL (0.0-1.0); Blood Urea Nitrogen 29 mg/dL (9-16); Calcium 9.3 mg/dL (8.4-10.2); Carbon Dioxide 26 mmol/L (22-29); Chloride 107 mmol/L (96-108); Creatinine Clr Calc Pharmacy 40.7; Estimated Glomerular Filt Rate 52; Glucose Random 95 mg/dL (60-115); Lipase 14 U/L (8-78); Potassium 5.2 mmol/L (3.3-5.1); Sodium 141 mmol/L (135-145); Total Protein 7.3 g/dL (6.5-8.0)
[2021-02-11 06:00] VITALS: BP 115/65; PULSE 74; RESP 20; O2SAT 96
[2021-02-11] MEDS: iohexoL 350 MG/ML 100 ML INFUS..BTL 85 ML IV (06:29)
[2021-02-11 06:57] VITALS: BP 154/67; PULSE 76; RESP 20
[2021-02-11] MEDS: Lidocaine 4 % Patch ADH..PATCH 1 PATCH TRANSDERMA (06:59)
== END 2021-02-11 07:17 | disposition home or self-care (01) ==
PROVIDERS: Emergency Provider Student in an Organized Health Care Education/Training Program
DX: M48.54XA Collapsed vertebra, not elsewhere classified, thoracic region, initial encounter for fracture (principal); Z20.822 Contact with and (suspected) exposure to COVID-19
CPT/HCPCS: 36415; 71260; 74177; 80053; 83605; 83690; 84484; 85025; 87040; 87077; 87186; 87205; 87635; 99284; Q9967

== ENCOUNTER → 2021-02-17 10:59 | Outpatient (REF) | payer MEDICARE, MEDICAID, SELFPAY ==
--- NOTE | ~2021-02-17 | NM_ITS ---
EXAMINATION: NM BONE SCAN OF THE WHOLE BODY CLINICAL INFORMATION: Osteoporosis. Collapsed vertebral fracture. Mid back pain. COMPARISON: CT chest 02/11/2021. TECHNIQUE: Multiple gamma scintillation camera images of the whole body were performed 3 hours following the intravenous administration of 21 mCi Tc-99m MDP. FINDINGS: In the head, no abnormal activity. In the thoracic cage and upper extremities, no abnormal activity seen in the upper extremity of the thoracic cage. In the spine, moderate intense transverse activity seen in the T8 vertebra consistent with acute compression fracture. In the pelvis, no abnormal activity seen. In the lower extremities, mild activity seen in bilateral knee joints and ankle joints consistent DJD. There is mild activity seen in bilateral kidney pelvis is and the urinary bladder . NM/NM bone scan whole body IMPRESSION: Moderately transverse activity T8 vertebra consistent with acute compression fracture.
== END ==
LOC: HO.NUCMED 10:59
PROVIDERS: PCP Internal Medicine Medical Oncology; Visit Provider Internal Medicine Medical Oncology
DX: M48.50XA Collapsed vertebra, not elsewhere classified, site unspecified, initial encounter for fracture (principal); M81.0 Age-related osteoporosis without current pathological fracture
CPT/HCPCS: 78306; A9503

== ENCOUNTER → 2021-02-20 06:56 | Day surgery (SDC) | payer MEDICARE, MEDICAID, SELFPAY ==
[2021-02-20 07:04] VITALS: BP 133/63; PULSE 105; RESP 26; TEMP 36.6; O2SAT 95; BMI 22.1
[2021-02-20 08:06] VITALS: O2SAT 89
== END | disposition home or self-care (01) ==
PROVIDERS: Visit Provider Radiology Diagnostic Radiology
DX: M54.6 Pain in thoracic spine (principal); Z53.20 Procedure and treatment not carried out because of patient's decision for unspecified reasons
CPT/HCPCS: J0690

== ENCOUNTER 2021-02-24 07:38 | Day surgery (SDC) | payer MEDICARE, MEDICAID, SELFPAY ==
[2021-02-24] VITALS (10 sets, daily range): BP systolic 92–142; BP diastolic 56–71; PULSE 77–99; RESP 16–18; TEMP 36.6–36.9; O2SAT 93–98; BMI 22.1
--- NOTE | ~2021-02-24 | IR_ITS ---
PROCEDURE: IR T8 THORACIC VERTEBROPLASTY CLINICAL INFORMATION: Acute T8 pathological osteoporotic compression fracture. Patient is unable to ambulate with severe back pain. Patient receiving long-term treatment for osteoporosis with vitamin D and calcium. COMPARISON: Bone scan 02/17/2021. TECHNIQUE/PROCEDURE: Following explaining fluoroscopy-guided T8 kyphoplasty procedure, benefits and risk, a written consent was obtained. Patient was placed prone on fluoroscopy table and mid back area centered at T8 area was cleaned and draped in the usual sterile manner. 1% lidocaine was inserted at puncture site overlying the T8 pedicle. A 22-gauge spinal needle was then advanced from the skin to the level of upper periosteum of T8 vertebra and 0.25% Marcaine was injected. Through a small skin incision, a 10-gauge Kyphon needle was advanced from the skin to the T8 pedicle and through the pedicle into the posterior one thirds of the vertebra. A second 10-gauge needle was advanced in a similar fashion from the skin through the pedicle into the posterior one thirds of T8 vertebra. Subsequently, a simple drill was advanced through the right followed by left pedicle needles and a tract created. Height tensile balloons were then inserted through the right and left needle and the balloons was inflated to 200 psi for 5 minutes. The balloons were deflated and removed. Freshly prepared polymethylmethacrylate was injected through the right followed by left needle under continuous AP, oblique and lateral fluoroscopy monitoring. After achieving adequate amount of cement and observing no cement leak, both needles were withdrawn and complete hemostasis achieved at the puncture site. Simple dressing applied post procedure. Patient tolerated the procedure extremely well. FINDINGS: On multiple images obtained through the thoracic spine, there is acute T8 compression fracture with moderate loss of inferior endplate height. There is approximately 25% loss vertebral height. There is adequate amount of cement seen occupying the T8 vertebra without any extravasation. FLUOROSCOPY TIME: 10.2 minutes. DOSE AREA PRODUCT: 775 uGy-m2 (microgray-meter squared). IR/IR kyphoplasty thoracic IMPRESSION: Successful bipedicle approach fluoroscopy-guided T8 kyphoplasty performed.
--- NOTE | ~2021-02-24 | CT_ITS ---
EXAMINATION: CT THORACIC SPINE CLINICAL INFORMATION: Post T8 kyphoplasty. COMPARISON: CT thoracic spine 02/24/2021 TECHNIQUE: 2 mm thin axial and reformatted 2 mm thin sagittal coronal images of thoracic spine were obtained from T6-T7 through mid T10 vertebra. This CT examination was performed using dose optimization techniques as appropriate, variously including the following: *Automated exposure control *Adjustment of mA and/or kV according to patient size (this includes techniques or standardized protocols for targeted exams where dose is matched to indication/reason for exam; i.e. extremities or head) *Use of iterative reconstruction technique DLP: 124 mGy-cm FINDINGS: The T8 compression fracture height has improved status post kyphoplasty. There is adequate amount cement occupying the T8 vertebra extending through the fissures into the inferior endplate. No major extravasation seen. Visualized T7 and T9 vertebra is of normal height. T6-T7, T7-T8, T8-T9 and T9-T10 disc level are unremarkable with no evidence of disc bulge, herniation or spinal stenosis. The neural foramina are patent. The paravertebral soft tissues are normal. Visualized dependent lungs are unremarkable. CT/CT thoracic spine post vert IMPRESSION: Adequate amount cement occupying T8 compression fracture with mild improvement in the T8 vertebral height. No extravasation of cement seen.
--- NOTE | ~2021-02-24 | CT_ITS ---
EXAMINATION: CT THORACIC SPINE CLINICAL INFORMATION: Acute T8 compression fracture. Pre-kyphoplasty planning. COMPARISON: CT chest 02/11/2021 TECHNIQUE: Axial 2 mm thin and reformatted 2 mm thin sagittal and coronal images of the thoracic spine were obtained. This CT examination was performed using dose optimization techniques as appropriate, variously including the following: *Automated exposure control *Adjustment of mA and/or kV according to patient size (this includes techniques or standardized protocols for targeted exams where dose is matched to indication/reason for exam; i.e. extremities or head) *Use of iterative reconstruction technique DLP: 195 mGy-cm FINDINGS: On sagittal reconstructed images, there is an acute T8 compression fracture with loss of 10-20% inferior endplate height. The visualized T7, T9, T10, T11, and T12 vertebral heights are normal. There is no posterior projection of the T8 fracture into the spinal canal. No spinal canal compromise seen. The soft tissues are normal. CT/CT thoracic spine post vert IMPRESSION: Acute T8 compression fracture without posterior bony component. There is no spinal canal compromise.
[2021-02-24 08:22] LABS: MANUAL DIFF FLAG NO
[2021-02-24 08:26] LABS: Basophils Percent Auto 0.5 % (0-2); Eosinophils Absolute Auto 0.2 X10*3/uL (0.0-0.4); Eosinophils Percent Auto 3.5 % (0-4); Hematocrit 39.1 % (37-47); Hemoglobin 12.4 g/dl (12.0-16.0); Imm Gran Abs Auto 0.03 X10*3/uL (0.00-0.03); Imm Gran Pct Auto 0.5 % (0.0-0.4); Lymphocytes Absolute Auto 1.2 X10*3/uL (1.2-4.9); Lymphocytes Percent Auto 19.9 % (20-40); Mean Corpuscular HGB Conc 31.7 g/dl (31.0-35.0); Mean Corpuscular Hemoglobin 27.4 pg (27.0-33.0); Mean Corpuscular Volume 86.3 fL (80-98); Mean Platelet Volume 10.5 fL (9.4-12.3); Monocytes Absolute Auto 0.5 X10*3/uL (0.1-1.2); Neutrophils Percent Auto 66.6 % (45-73); Platelet Count 228 X10*3/uL (160-400); Red Blood Count 4.53 X10*6/uL (4.20-5.50); Red Cell Distribution Width 15.9 % (11.0-16.0)
[2021-02-24 08:40] LABS: Prothrombin Time 11.3 SEC (9.9-13.0)
[2021-02-24] MEDS: Lactated Ringers 1,000 ML 100 ML IVCONT (08:53)
--- NOTE | 2021-02-24 09:40 | PC.NURSE ---
assited patient laying on right lateral side to use the bed desai. unable to lay on back. applied towels to mona area and voided successfuly. mona care provided.
--- NOTE | 2021-02-24 10:01 | P.CONAN_ITS ---
[facility] Active Problems Active Problems: All Active Problems (Updated 02/12/21 @ 00:02 by Ashtyn Aguilar) COPD exacerbation (Acute) H/O carotid endarterectomy (Acute 04/01/20) Essential hypertension (Acute) Abnormal myocardial perfusion study (Acute) Precordial chest pain (Acute) Tachycardia (Acute) Dyspnea (Acute) GERD (gastroesophageal reflux disease) (Acute) Hyperlipidemia (Acute) Hypertension (Acute) DVT (deep venous thrombosis) (Acute) Mild acid reflux (Acute) Glaucoma (Acute) Emphysema of lung (Acute) CVA (cerebral vascular accident) (Acute) COPD (chronic obstructive pulmonary disease) (Acute) Asthma (Acute) 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 Mother No problems noted. Sister No problems noted. Sister No problems noted. Sister No problems noted. Sister No problems noted. Sister Cancer Son No problems noted. Family history of problems with anesthesia: No Surgical History Surgical History H/O carotid endarterectomy (04/01/20) History of AAA (abdominal aortic aneurysm) repair Hx of shoulder surgery Hx of varicose vein stripping History of Problems with Anesthesia: No Social History Social History Alcohol intake: unknown Patient Tobacco Use Status: Former Tobacco user Quit Date: 2019 Tobacco use type: Cigarette Cigarette Packs Per Day: 4 Cigarettes Per Day: 80.0 Years Smoked: 65 Use of substances other than those prescribed or required for medical reasons: No Are you DNR?: No Advance Directives: No Advance Directives Information Provided: Yes Recently lost weight without trying: No Nutrition Risks: No Nutritional Risk Patient : No Meds Allergies Allergy/AdvReac Type Severity Reaction Status Date / Time No Known Allergies Allergy Verified 02/20/21 07:00 Home Medications Medication Instructions Recorded Confirmed Last Taken Type aspirin 81 mg tablet,delayed 81 mg PO DAILY 04/18/20 11/22/20 02/19/21 08:00 History release atorvastatin 80 mg tablet 80 mg PO DAILY 04/18/20 11/22/20 Unknown History clopidogrel 75 mg tablet 75 mg PO DAILY 04/18/20 11/22/20 Unknown History latanoprost 0.005 % eye drops 1 drp OPHTHALMIC (EYE) BEDTIME 04/18/20 11/22/20 Unknown History lisinopril 30 mg tablet 30 mg PO DAILY 04/18/20 11/22/20 Unknown History omeprazole 20 mg capsule,delayed 20 mg PO DAILY 04/18/20 11/22/20 Unknown History release ranitidine HCl 150 mg tablet 150 mg PO BID 04/18/20 11/22/20 Unknown History Tylenol 02/20/21 02/20/21 06:00 History 1000 mg Exam Exam Date and Time: February 24, 2021 1001 Height,Weight and Vital Signs: Height 5 ft 4 in Weight 58.513 kg Last Vital Signs Temp 97.9 F 02/24/21 08:41 Pulse 92 02/24/21 08:41 Resp 16 02/24/21 08:41 BP 92/56 L 02/24/21 08:41 Pulse Ox 94 02/24/21 08:41 Pertinent Lab Results Pertinent Lab Results: Laboratory Tests 02/24/21 02/24/21 08:17 08:17 WBC 6.0 RBC 4.53 Hgb 12.4 Hct 39.1 MCV 86.3 MCH 27.4 MCHC 31.7 RDW 15.9 Plt Count 228 MPV 10.5 Immature Gran % (Auto) 0.5 H Neut % (Auto) 66.6 Lymph % (Auto) 19.9 L [place] % (Auto) 9.0 Eos % (Auto) 3.5 Baso % (Auto) 0.5 Lymph # (Auto) 1.2 [place] # (Auto) 0.5 Eos # (Auto) 0.2 Baso # (Auto) 0.0 Abs Immat Gran (auto) 0.03 Absolute Neuts (auto) 4.0 Absolute Nucleated RBC 0.000 Nucleated RBC % (auto) 0.0 PT 11.3 INR 1.0 APTT 30.0 Airway Mallampati Class: II (Edentulous upper) TM Dist: >3cm Neck ROM: Full Heart: rrr Lungs: cta Assessment and Plan Assessment Anesthesia Assessment: Anesthesia Plan Discussed and Chart Reviewed Final Anesthetic Review Family History of Problems with Anesthesia: No History of Problems with Anesthesia: No NPO: Yes ASA Class: III (Unable to have perfusion cardiac study secondary to pain lying flat) Final Preanesthetic Review: No Changes in Pt Med Stat and Consent Obtaine d/Reviewed Patient Risk: Intermediate Procedure Risk: Intermediate Anesthetic Plan Anesthetic Plan: MAC: Disposition: Standard PACU
[2021-02-24] MEDS: Lidocaine HCl 1 % MPF 5 ML VIAL SUBCUT (11:53)
[2021-02-24] MEDS: iohexoL 300 MG/ML 50 ML INFUS..BTL PR (11:54)
[2021-02-24] MEDS: fentaNYL citrate/PF 100 MCG/2 ML VIAL 12.5 MCG IVPUSH (13:02)
[2021-02-24] MEDS: Acetaminophen 325 MG TABLET PO (16:10)
[2021-02-24] MEDS: Acetaminophen 325 MG TABLET 650 MG PO (16:10)
== END 2021-02-24 16:35 | disposition home or self-care (01) ==
PROVIDERS: Visit Provider Radiology Diagnostic Radiology
DX: M80.88XA Other osteoporosis with current pathological fracture, vertebra(e), initial encounter for fracture (principal); M54.6 Pain in thoracic spine; Z79.899 Other long term (current) drug therapy; J44.9 Chronic obstructive pulmonary disease, unspecified; I10 Essential (primary) hypertension; I71.4 Abdominal aortic aneurysm, without rupture; R00.0 Tachycardia, unspecified; Z79.82 Long term (current) use of aspirin; Z86.73 Personal history of transient ischemic attack (TIA), and cerebral infarction without residual deficits; Z87.891 Personal history of nicotine dependence
CPT/HCPCS: 22513; 36415; 72128; 85025; 85610; 85730; J0690; J2250; J3010; Q9967

== ENCOUNTER 2021-03-10 07:11 | Emergency (ER) | payer MEDICARE, MEDICAID, SELFPAY ==
--- NOTE | ~2021-03-10 | CT_ITS ---
EXAMINATION: CT ANGIOGRAM OF THE CHEST WITH AND WITHOUT CONTRAST (CT PULMONARY ANGIOGRAM FOR PE) CLINICAL INFORMATION: SOB, Elevated D-dimer, rule out PE. COMPARISON: CT chest 02/11/2021 TECHNIQUE: Prior to contrast administration, noncontrast localization images were obtained. Subsequently, multidetector volumetric imaging was performed from the thoracic inlet to below the diaphragms following the administration of 55 mL Omnipaque 350 intravenous contrast. No contrast reaction reported. Sagittal, coronal, and MIP oblique sagittal reformatted images were obtained on the CT workstation, uploaded to PACS, and reviewed. This CT examination was performed using dose optimization techniques as appropriate, variously including the following: Automated exposure control. Adjustment of mA and/or kV according to patient size (this includes techniques or standardized protocols for targeted exams where dose is matched to indication/reason for exam; i.e. extremities or head). Use of iterative reconstruction technique. Total exam dose-length product 204 mGy-cm. FINDINGS: QUALITY OF STUDY/CONTRAST BOLUS: Satisfactory. PULMONARY ARTERIES: No evidence of filling defects to suggest central or segmental pulmonary emboli. THORACIC AORTA: No aneurysm or dissection. LUNG: Moderate bilateral upper lobe predominant centrilobular emphysema. Mild biapical pleural-parenchymal scarring. No focal consolidation. No suspicious nodules are seen. PLEURA: No pleural effusion or pneumothorax. MEDIASTINUM: Normal heart size. Trace pericardial fluid anteriorly. No hilar or mediastinal lymphadenopathy. No evidence of septal bowing or right heart strain. CHEST WALL/AXILLA: No axillary or internal mammary lymphadenopathy. OSSEOUS STRUCTURES: Status post vertebroplasty at T8. No acute or suspicious osseous abnormality. Thoracic spine degeneration. UPPER ABDOMEN: Moderate hiatal hernia. Similar appearance of chronic atrophy of the posterior cortex right kidney. No reflux of contrast into the hepatic veins to suggest elevated right heart pressures. CT/CT angio chest PE protocol IMPRESSION: 1. No findings to suggest central or segmental pulmonary emboli. 2. Emphysematous changes in bilateral lungs. 3. Trace pericardial fluid anteriorly. 4. Status post T8 vertebroplasty. 5. Moderate hiatal hernia. VTE: Negative.
--- NOTE | ~2021-03-10 | XR_ITS ---
EXAMINATION: XR RIBS, BILATERAL CLINICAL INFORMATION: Bilateral rib pain COMPARISON: X-ray 07/10/2020 TECHNIQUE: 4 views of the bilateral ribs were obtained. FINDINGS: Lungs are clear. No consolidation, pneumothorax, or pleural effusion. Stable mild biapical pleural parenchymal scarring. The cardiomediastinal silhouette and pulmonary vasculature are normal. No acute displaced rib fractures are identified. Vertebroplasty cement in a midthoracic vertebral body. XR/XR ribs BI min 4V w CXR1V IMPRESSION: No evidence of acute cardiac pulmonary process. No acute displaced rib fracture is visualized.
[2021-03-10 07:23] VITALS: BP 191/91; PULSE 85; RESP 24; TEMP 36.6; O2SAT 93; BMI 21.6
--- NOTE | 2021-03-10 07:46 | ECG_ITS ---
Test Reason : CHEST PAIN Blood Pressure : / mmHG Vent. Rate : 079 BPM Atrial Rate : 079 BPM P-R Int : 122 ms QRS Dur : 078 ms QT Int : 406 ms P-R-T Axes : 075 041 050 degrees QTc Int : 465 ms Normal sinus rhythm with sinus arrhythmia Normal ECG When compared with ECG of 04-NOV-2020 11:58, Premature supraventricular complexes are no longer Present Referred By: Niesha Perez Electronically Signed By:ANDREA RUTHERFORD
--- NOTE | 2021-03-10 07:46 | ED.GENADULT ---
HPI - General Adult General Chief complaint: General Medical Stated complaint: RIB PAIN Time Seen by Provider: 03/10/21 07:36 Source: patient Mode of arrival: ambulatory Limitations: no limitations History of Present Illness HPI narrative: Patient comes emergency room complaining of bilateral rib pain, anterior and posteriorly. Patient states the pain has been constant for about 2 weeks. Patient states the pain started after she had a spinal surgery, had cement placed in the T8. Since then, patient has been having bilateral rib pain. Patient states that her surgeon prescribed her oxycodone. Patient states she does not like the feeling so she has not been taking it. Patient has been trying to take Tylenol but it is not helping the pain either. Of note, patient states that approximately 1 month ago, she was supposed to get a cardiac catheterization in [facility] but they could not do it because the patient had severe back pain and she could not lie flat for the procedure. Patient states that she has been prescribed nitroglycerin but has not used it. Patient states that whenever she takes a deep breath, the pain is much worse. Related Data Home Medications Medication Instructions Recorded Confirmed aspirin 81 mg tablet,delayed 81 mg PO DAILY 04/18/20 11/22/20 release atorvastatin 80 mg tablet 80 mg PO DAILY 04/18/20 11/22/20 clopidogrel 75 mg tablet 75 mg PO DAILY 04/18/20 11/22/20 latanoprost 0.005 % eye drops 1 drp OPHTHALMIC (EYE) BEDTIME 04/18/20 11/22/20 lisinopril 30 mg tablet 30 mg PO DAILY 04/18/20 11/22/20 omeprazole 20 mg capsule,delayed 20 mg PO DAILY 04/18/20 11/22/20 release ranitidine HCl 150 mg tablet 150 mg PO BID 04/18/20 11/22/20 Tylenol 02/20/21 Previous Rx's Medication Instructions Recorded albuterol sulfate 2.5 mg/0.5 mL 5 mg INHALATION Q4H PRN #30 ea 08/16/20 solution for nebulization albuterol sulfate 90 mcg/actuation 1 inh INHALATION QID PRN #8.5 g 08/16/20 aerosol inhaler nebulizers (AeroEclipse II #1 ea 08/16/20 Nebulizer) fluticasone fur. 100 mcg-umeclid 1 inh INHALATION DAILY 30 Days #60 10/08/20 62.5 mcg-vilant 25 mcg ea inhalat.powder (Trelegy Ellipta) nitroglycerin 0.4 mg sublingual 0.4 mg SUBLINGUAL Q5M PRN #30 tab 11/04/20 tablet doxycycline hyclate 100 mg capsule 100 mg PO BID 10 Days #20 cap 11/22/20 ipratropium 0.5 mg-albuterol 3 mg 3 ml INHALATION QID 30 Days #360 ml 11/22/20 (2.5 mg base)/3 mL nebulization soln prednisone 20 mg tablet 20 mg PO DAILY 10 Days #15 tab 11/22/20 clopidogrel 75 mg tablet (Plavix) 75 mg PO DAILY #30 tab 11/28/20 isosorbide mononitrate 30 mg 30 mg PO DAILY #30 tab 01/30/21 tablet,extended release 24 hr tramadol 50 mg tablet 50 mg PO BID PRN #14 tab 03/10/21 Allergies Allergy/AdvReac Type Severity Reaction Status Date / Time No Known Allergies Allergy Verified 02/20/21 07:00 Review of Systems Review of Systems: Constitutional : No Weight loss, No Fever, No Chills, No Night Sweats, No Fatigue, No Malaise ENT/Mouth : No Hearing loss, No Ear Pain, No Nasal Congestion, No Sinus Pain, No Hoarseness, No sore throat, No Rhinorrhea, No Swallowing Difficulty Eyes: No Eye Pain, No Swelling, No Redness, No Foreign Body, No Discharge, No Vision Changes Cardiovascular : Complaining of bilateral chest pain and back pain, worse with deep inspirations, also worse with movements, No Edema, No Palpitations Respiratory : Chronic cough, chronic dyspnea, uses oxygen at home p.r.n. shortness of breath 2 L Gastrointestinal : No Nausea, No Vomiting, No Diarrhea, No Constipation, No abdominal Pain, No Hematochezia, No Melena Genitourinary : no irregular bleeding, No Dysuria, No Urinary Frequency, No Hematuria, No Urinary Incontinence, No Urgency, No Flank Pain, No Urinary Flow Changes, No Hesitancy Musculoskeletal : No joint pain, No Myalgias, No Joint Swelling Skin : No Skin Lesions, No rash Neuro : No Weakness, No Numbness, No Paresthesias, No Loss of Consciousness, No Dizziness, No Headache Psych : No Anxiety/Panic, No Depression, No SI/HI/AH/VH, No Social Issues, Heme/Lymph: No Bruising, No Bleeding,No Lymphadenopathy Endocrine : No Polyuria, No Polydipsia, No Temperature Intolerance [facility] Past Medical History Medical History Asthma COPD (chronic obstructive pulmonary disease) CVA (cerebral vascular accident) Dyspnea Emphysema of lung Essential hypertension Glaucoma Mild acid reflux Tachycardia Surgical History H/O carotid endarterectomy (04/01/20) History of AAA (abdominal aortic aneurysm) repair Hx of shoulder surgery Hx of varicose vein stripping Family History Family History Father No problems noted. Mother No problems noted. Sister No problems noted. Sister No problems noted. Sister No problems noted. Sister No problems noted. Sister Cancer Son No problems noted. Social History Social History Alcohol intake: unknown Patient Tobacco Use Status: Former Tobacco user Quit Date: 2019 Tobacco use type: Cigarette Cigarette Packs Per Day: 4 Cigarettes Per Day: 80.0 Years Smoked: 65 Advance Directives: Yes Advance Directives Information Provided: Yes Advance Directives on File: No Physical Exam Vital Signs: Vital Signs: Last Vital Signs Temp 98 F 03/10/21 07:23 Pulse 77 03/10/21 10:42 Resp 22 H 03/10/21 10:42 BP 156/68 H 03/10/21 10:42 Pulse Ox 93 03/10/21 07:23 Body Mass Index 21.6 Const: Other: Appearance: Alert. Oriented X3. No acute distress. Very anxious Eyes: Pupils equal, round and reactive to light. ENT: Pharynx normal. Neck: Normal inspection. Neck supple. No lymph nodes noted. No crepitus CVS: Normal heart rate and rhythm. Pulses normal. Normal S1 and S2, reproducible chest pain bilaterally, anterior and posterior Respiratory: No respiratory distress. Breath sounds normal. No Wheezing. No rales Abdomen: Soft and nontender. No rigidity. No distention. good BS x4 Skin: Skin warm and dry. Normal skin color. Normal skin turgor. Extremities: No lower extremity edema. No lower extremity edema. No Lacerations. No Rash Neuro: Oriented X 3. No motor deficit. No sensory deficit. Moving all extermities. No slurred speech. Course Course Course Narrative: I discussed the labs and CT scan with the patient, patient's labs likely secondary to musculoskeletal pain. Patient's troponin negative, D-dimer positive, CT scan negative for PE. Also, I discussed with the patient that the hiatal hernia that was visualized on CT scan is unlikely that may be causing the back pain. I discussed with the patient that if she is having recurrent symptoms, worsening symptoms, she needs to be further evaluated for the hernia. At this time, patient states that the tramadol helps her a lot, she is not having any significant discomfort and knee did not make her feel sick as the oxycodone dose. Patient requesting a prescription for tramadol Medical Decision Making Lab Data Result diagrams: 03/10/21 07:56 03/10/21 07:56 Labs: Lab Results 03/10/21 03/10/21 03/10/21 Range/Units 07:56 07:56 07:56 WBC 6.1 (4.8-10.8) X10*3/uL RBC 4.57 (4.20-5.50) X10*6/uL Hgb 12.8 (12.0-16.0) g/dl Hct 40.0 (37-47) % MCV 87.5 (80-98) fL MCH 28.0 (27.0-33.0) pg MCHC 32.0 (31.0-35.0) g/dl RDW 14.8 (11.0-16.0) % Plt Count 194 (160-400) X10*3/uL MPV 10.9 (9.4-12.3) fL Immature Gran % (Auto) 0.5 H (0.0-0.4) % Neut % (Auto) 71.0 (45-73) % Lymph % (Auto) 17.0 L (20-40) % Grimes % (Auto) 6.9 (2-11) % Eos % (Auto) 4.1 H (0-4) % Baso % (Auto) 0.5 (0-2) % Lymph # (Auto) 1.0 L (1.2-4.9) X10*3/uL Grimes # (Auto) 0.4 (0.1-1.2) X10*3/uL Eos # (Auto) 0.3 (0.0-0.4) X10*3/uL Baso # (Auto) 0.0 (0.0-0.2) X10*3/uL Abs Immat Gran (auto) 0.03 (0.00-0.03) X10*3/uL Absolute Neuts (auto) 4.3 (2.0-8.3) X10*3/uL Absolute Nucleated RBC 0.000 (0.0-0.012) X10*3/uL Nucleated RBC % (auto) 0.0 (0.0-0.2) /100WBC D-Dimer NG/ML Sodium 145 (135-145) mmol/L Potassium 4.0 D (3.3-5.1) mmol/L Chloride 112 H (96-108) mmol/L Carbon Dioxide 25 (22-29) mmol/L Anion Gap 12 (12-20) BUN 11 D (9-16) mg/dL Creatinine 0.83 (0.5-1.4) mg/dL Estim Creat Clear Calc 50.5 Estimated GFR > 60 Random Glucose 93 (60-115) mg/dL Calcium 9.2 (8.4-10.2) mg/dL Total Bilirubin 0.5 (0.0-1.0) mg/dL Direct Bilirubin 0.2 (0.0-0.5) mg/dL AST 15 (5-31) U/L ALT 10 (0-31) U/L Alkaline Phosphatase 137 H D (39-117) U/L Troponin I High Sens 4.1 (<3.5-17.0) ng/L B-Natriuretic Peptide 254 H (<100) pg/mL Total Protein 6.7 (6.5-8.0) g/dL Albumin 3.9 (3.5-5.0) g/dL Urine Color Urine Appearance Urine pH (5.0-8.0) Ur Specific Marathon (1.005-1.025) Urine Protein (NEG-TRACE) MG/DL Urine Glucose (UA) (NEG) MG/DL Urine Ketones (NEG) MG/DL Urine Blood (NEG) Urine Nitrite (NEG) Ur Leukocyte Esterase (NEG) Urine RBC (0) /HPF Urine WBC (0-4) /HPF Ur Squamous Epith Cells /LPF Urine Bacteria /LPF 03/10/21 03/10/21 Range/Units 07:56 08:48 WBC (4.8-10.8) X10*3/uL RBC (4.20-5.50) X10*6/uL Hgb (12.0-16.0) g/dl Hct (37-47) % MCV (80-98) fL MCH (27.0-33.0) pg MCHC (31.0-35.0) g/dl RDW (11.0-16.0) % Plt Count (160-400) X10*3/uL MPV (9.4-12.3) fL Immature Gran % (Auto) (0.0-0.4) % Neut % (Auto) (45-73) % Lymph % (Auto) (20-40) % Grimes % (Auto) (2-11) % Eos % (Auto) (0-4) % Baso % (Auto) (0-2) % Lymph # (Auto) (1.2-4.9) X10*3/uL Grimes # (Auto) (0.1-1.2) X10*3/uL Eos # (Auto) (0.0-0.4) X10*3/uL Baso # (Auto) (0.0-0.2) X10*3/uL Abs Immat Gran (auto) (0.00-0.03) X10*3/uL Absolute Neuts (auto) (2.0-8.3) X10*3/uL Absolute Nucleated RBC (0.0-0.012) X10*3/uL Nucleated RBC % (auto) (0.0-0.2) /100WBC D-Dimer 930 NG/ML Sodium (135-145) mmol/L Potassium (3.3-5.1) mmol/L Chloride (96-108) mmol/L Carbon Dioxide (22-29) mmol/L Anion Gap (12-20) BUN (9-16) mg/dL Creatinine (0.5-1.4) mg/dL Estim Creat Clear Calc Estimated GFR Random Glucose (60-115) mg/dL Calcium (8.4-10.2) mg/dL Total Bilirubin (0.0-1.0) mg/dL Direct Bilirubin (0.0-0.5) mg/dL AST (5-31) U/L ALT (0-31) U/L Alkaline Phosphatase (39-117) U/L Troponin I High Sens (<3.5-17.0) ng/L B-Natriuretic Peptide (<100) pg/mL Total Protein (6.5-8.0) g/dL Albumin (3.5-5.0) g/dL Urine Color YELLOW Urine Appearance CLEAR Urine pH 5.5 (5.0-8.0) Ur Specific Marathon 1.025 (1.005-1.025) Urine Protein NEG (NEG-TRACE) MG/DL Urine Glucose (UA) NEG (NEG) MG/DL Urine Ketones NEG (NEG) MG/DL Urine Blood NEG (NEG) Urine Nitrite NEG (NEG) Ur Leukocyte Esterase 2+ H (NEG) Urine RBC 0-2 (0) /HPF Urine WBC 5-9 H (0-4) /HPF Ur Squamous Epith Cells 1+ /LPF Urine Bacteria TRACE /LPF Imaging Data CT for PE: Radiologist's impression: FINDINGS: QUALITY OF STUDY/CONTRAST BOLUS: Satisfactory. PULMONARY ARTERIES: No evidence of filling defects to suggest central or segmental pulmonary emboli.? THORACIC AORTA: No aneurysm or dissection. LUNG: Moderate bilateral upper lobe predominant centrilobular emphysema. Mild biapical pleural-parenchymal scarring. No focal consolidation. No suspicious nodules are seen. PLEURA: No pleural effusion or pneumothorax. MEDIASTINUM: Normal heart size. Trace pericardial fluid anteriorly. No hilar or mediastinal lymphadenopathy. No evidence of septal bowing or right heart strain. CHEST WALL/AXILLA: No axillary or internal mammary lymphadenopathy. OSSEOUS STRUCTURES: Status post vertebroplasty at T8. No acute or suspicious osseous abnormality. Thoracic spine degeneration. UPPER ABDOMEN: Moderate hiatal hernia. Similar appearance of chronic atrophy of the posterior cortex right kidney. No reflux of contrast into the hepatic veins to suggest elevated right heart pressures. CT/CT angio chest PE protocol IMPRESSION: 1. No findings to suggest central or segmental pulmonary emboli. ? 2. Emphysematous changes in bilateral lungs. ? 3. Trace pericardial fluid anteriorly. ? 4. Status post T8 vertebroplasty. ? 5. Moderate hiatal hernia. ? VTE: Negative. ECG Data Attestation: I personally reviewed and interpreted this ECG as follows: (Sinus rhythm with sinus arrhythmia, heart rate 79, no ST segment depression or elevation, no T-wave inversion, QTC 465) Discharge Plan Discharge Clinical Impression: Rib pain, Atypical chest pain Patient Disposition: Home, Self-Care Instructions: Costochondritis (ED) Additional Instructions: Please follow-up with your primary care physician tomorrow. If you have any worsening or new symptoms, please return to the emergency room or call 911 Prescriptions: New tramadol 50 mg tablet 50 mg PO BID PRN (Reason: pain) Qty: 14 RF: 0 No Action clopidogrel [Plavix] 75 mg tablet 75 mg PO DAILY Qty: 30 RF: 2 isosorbide mononitrate 30 mg tablet extended release 24 hr 30 mg PO DAILY Qty: 30 RF: 0 albuterol sulfate 90 mcg/actuation HFA aerosol inhaler 1 inh inhalation QID PRN (Reason: shortness of breath or wheezing) Qty: 8.5 RF: 0 albuterol sulfate 2.5 mg/0.5 mL solution for nebulization 5 mg inhalation Q4H PRN (Reason: shortness of breath or wheezing) Qty: 30 RF: 0 (DME) AeroEclipse II Nebulizer Misc See Rx Instructions .ROUTE .MEDSUPPLY Qty: 1 RF: 0 Tylenol 500 mg tablet RF: 0 omeprazole 20 mg capsule,delayed release(DR/EC) 20 mg PO DAILY RF: 0 lisinopril 30 mg tablet 30 mg PO DAILY RF: 0 aspirin 81 mg tablet,delayed release (DR/EC) 81 mg PO DAILY RF: 0 clopidogrel 75 mg tablet 75 mg PO DAILY RF: 0 atorvastatin 80 mg tablet 80 mg PO DAILY RF: 0 latanoprost 0.005 % drops 1 drp ophthalmic (eye) BEDTIME RF: 0 ranitidine HCl 150 mg tablet 150 mg PO BID RF: 0 nitroglycerin 0.4 mg tablet, sublingual 0.4 mg sublingual Q5M PRN (Reason: chest pain) Qty: 30 RF: 5 Trelegy Ellipta 100-62.5-25 mcg blister with device 1 inh inhalation DAILY 30 Days Qty: 60 RF: 11 ipratropium-albuterol 0.5 mg-3 mg(2.5 mg base)/3 mL solution for nebulization 3 ml inhalation QID 30 Days Qty: 360 RF: 11 prednisone 20 mg tablet 20 mg PO DAILY 10 Days Qty: 15 RF: 0 doxycycline hyclate 100 mg capsule 100 mg PO BID 10 Days Qty: 20 RF: 0
[2021-03-10 08:00] LABS: MANUAL DIFF FLAG NO
[2021-03-10 08:03] LABS: Basophils Percent Auto 0.5 % (0-2); Eosinophils Absolute Auto 0.3 X10*3/uL (0.0-0.4); Eosinophils Percent Auto 4.1 % (0-4); Hemoglobin 12.8 g/dl (12.0-16.0); Imm Gran Abs Auto 0.03 X10*3/uL (0.00-0.03); Imm Gran Pct Auto 0.5 % (0.0-0.4); Mean Corpuscular Volume 87.5 fL (80-98); Mean Platelet Volume 10.9 fL (9.4-12.3); Monocytes Absolute Auto 0.4 X10*3/uL (0.1-1.2); Monocytes Percent Auto 6.9 % (2-11); Neutrophils Absolute Auto 4.3 X10*3/uL (2.0-8.3); Platelet Count 194 X10*3/uL (160-400); Red Blood Count 4.57 X10*6/uL (4.20-5.50); Red Cell Distribution Width 14.8 % (11.0-16.0); White Blood Count 6.1 X10*3/uL (4.8-10.8)
[2021-03-10] MEDS: traMADoL HCL 50 MG TABLET PO (08:09)
[2021-03-10 08:13] LABS: D Dimer 930 NG/ML
[2021-03-10 08:23] LABS: Alanine Aminotransferase 10 U/L (0-31); Albumin Level 3.9 g/dL (3.5-5.0); Alkaline Phosphatase 137 U/L (39-117); Anion Gap 12 (12-20); Aspartate Amino Transferase 15 U/L (5-31); Bilirubin Direct 0.2 mg/dL (0.0-0.5); Bilirubin Total 0.5 mg/dL (0.0-1.0); Blood Urea Nitrogen 11 mg/dL (9-16); Calcium 9.2 mg/dL (8.4-10.2); Carbon Dioxide 25 mmol/L (22-29); Chloride 112 mmol/L (96-108); Creatinine Clr Calc Pharmacy 50.5; Estimated Glomerular Filt Rate > 60; Glucose Random 93 mg/dL (60-115); Sodium 145 mmol/L (135-145); Total Protein 6.7 g/dL (6.5-8.0)
[2021-03-10 08:29] LABS: B Type Natriuretic Peptide 254 pg/mL (<100); Troponin-I High Sensitivity 4.1 ng/L (<3.5-17.0)
[2021-03-10 08:54] LABS: Glucose Urine UA NEG (NEG); Leukocyte Esterase Urine 2+ (NEG); Nitrite Urine NEG (NEG); PH 5.5 (5.0-8.0); Specific Gravity - Urine 1.025 (1.005-1.025); UACC Culture Trigger YES; Urine Blood NEG (NEG); Urine Ketones NEG (NEG); Urine Protein NEG (NEG-TRACE)
[2021-03-10 08:55] LABS: Appearance Urine CLEAR; Color Urine YELLOW
[2021-03-10 09:04] LABS: Bacteria Urine TRACE /LPF; RBC Urine 0-2 /HPF (0); Squamous Epithelial Cell Urine 1+ /LPF
[2021-03-10] MEDS: iohexoL 350 MG/ML 100 ML INFUS..BTL 55 ML IV (10:09)
[2021-03-10 10:42] VITALS: BP 156/68; PULSE 77; RESP 22
== END 2021-03-10 11:50 | disposition home or self-care (01) ==
PROVIDERS: Emergency Provider Emergency Medicine; PCP Internal Medicine Medical Oncology
DX: R07.81 Pleurodynia (principal); R07.89 Other chest pain; R06.02 Shortness of breath; F17.210 Nicotine dependence, cigarettes, uncomplicated; Z71.6 Tobacco abuse counseling; Z79.899 Other long term (current) drug therapy
CPT/HCPCS: 36415; 71111; 71275; 80048; 80076; 81001; 83880; 84484; 85025; 85379; 87086; 93005; 99284; Q9967

== ENCOUNTER 2021-03-26 14:29 | Emergency (ER) | payer MEDICARE, MEDICAID, SELFPAY ==
[2021-03-26 14:47] VITALS: BP 145/82; PULSE 98; RESP 17; TEMP 36.4; O2SAT 95; BMI 24.0
[2021-03-26 16:13] LABS: MANUAL DIFF FLAG NO
[2021-03-26 16:16] LABS: Basophils Percent Auto 0.5 % (0-2); Eosinophils Absolute Auto 0.2 X10*3/uL (0.0-0.4); Eosinophils Percent Auto 3.7 % (0-4); Hematocrit 40.5 % (37-47); Imm Gran Abs Auto 0.02 X10*3/uL (0.00-0.03); Imm Gran Pct Auto 0.3 % (0.0-0.4); Lymphocytes Absolute Auto 1.4 X10*3/uL (1.2-4.9); Lymphocytes Percent Auto 22.1 % (20-40); Mean Corpuscular HGB Conc 32.1 g/dl (31.0-35.0); Mean Corpuscular Hemoglobin 28.6 pg (27.0-33.0); Mean Platelet Volume 10.5 fL (9.4-12.3); Monocytes Absolute Auto 0.5 X10*3/uL (0.1-1.2); Monocytes Percent Auto 8.6 % (2-11); Neutrophils Absolute Auto 4.1 X10*3/uL (2.0-8.3); Neutrophils Percent Auto 64.8 % (45-73); Platelet Count 221 X10*3/uL (160-400); Red Blood Count 4.55 X10*6/uL (4.20-5.50); White Blood Count 6.3 X10*3/uL (4.8-10.8)
--- NOTE | 2021-03-26 16:19 | ECG_ITS ---
Test Reason : ABDOMINAL PAIN Blood Pressure : / mmHG Vent. Rate : 088 BPM Atrial Rate : 088 BPM P-R Int : 126 ms QRS Dur : 078 ms QT Int : 390 ms P-R-T Axes : 058 047 034 degrees QTc Int : 471 ms Sinus rhythm with Premature supraventricular complexes and with occasional Premature ventricular complexes Otherwise normal ECG When compared with ECG of 10-MAR-2021 07:59, Premature ventricular complexes are now Present Premature supraventricular complexes are now Present Referred By: Jessica Evans Electronically Signed By:ANDREA RUTHERFORD
--- NOTE | 2021-03-26 16:37 | ED_ITS ---
HPI - Abdominal Pain General Chief Complaint: Abdominal Pain Stated Complaint: Hernia Time Seen by Provider: 03/26/21 15:50 Source: patient and family Mode of arrival: ambulatory Limitations: no limitations History of Present Illness HPI narrative: 75-year-old female with a past medical history of asthma, COPD, CVA, emphysema, HTN, glaucoma, GERD, AAA, presenting to ED?with complaints of generalized abdominal pain with nausea and vomiting. The patient tells me that she has had intermittent upper abdominal pain for weeks. She also has had associated vomiting after eating which contains food it is nonbilious and nonbloody. She has no associated shortness of breath, cough, diarrhea, constipation or urinary symptoms. She has a known hiatal hernia and is seeing General surgery tomorrow for an evaluation. She also has a history of gastric ulcers and is followed by GI. She tells me she has a follow-up appointment with them her in April. She is currently on Prilosec 20 mg. Today she felt like her pain was worse lasting for 3-4 hours which is atypical for her previous reports of pain. Related Data Home Medications Medication Instructions Recorded Confirmed aspirin 81 mg tablet,delayed 81 mg PO DAILY 04/18/20 11/22/20 release atorvastatin 80 mg tablet 80 mg PO DAILY 04/18/20 11/22/20 clopidogrel 75 mg tablet 75 mg PO DAILY 04/18/20 11/22/20 latanoprost 0.005 % eye drops 1 drp OPHTHALMIC (EYE) BEDTIME 04/18/20 11/22/20 lisinopril 30 mg tablet 30 mg PO DAILY 04/18/20 11/22/20 omeprazole 20 mg capsule,delayed 20 mg PO DAILY 04/18/20 11/22/20 release ranitidine HCl 150 mg tablet 150 mg PO BID 04/18/20 11/22/20 Tylenol 02/20/21 Previous Rx's Medication Instructions Recorded albuterol sulfate 2.5 mg/0.5 mL 5 mg INHALATION Q4H PRN #30 ea 08/16/20 solution for nebulization albuterol sulfate 90 mcg/actuation 1 inh INHALATION QID PRN #8.5 g 08/16/20 aerosol inhaler nebulizers (AeroEclipse II #1 ea 08/16/20 Nebulizer) fluticasone fur. 100 mcg-umeclid 1 inh INHALATION DAILY 30 Days #60 10/08/20 62.5 mcg-vilant 25 mcg ea inhalat.powder (Trelegy Ellipta) nitroglycerin 0.4 mg sublingual 0.4 mg SUBLINGUAL Q5M PRN #30 tab 11/04/20 tablet doxycycline hyclate 100 mg capsule 100 mg PO BID 10 Days #20 cap 11/22/20 ipratropium 0.5 mg-albuterol 3 mg 3 ml INHALATION QID 30 Days #360 ml 11/22/20 (2.5 mg base)/3 mL nebulization soln prednisone 20 mg tablet 20 mg PO DAILY 10 Days #15 tab 11/22/20 clopidogrel 75 mg tablet (Plavix) 75 mg PO DAILY #30 tab 11/28/20 isosorbide mononitrate 30 mg 30 mg PO DAILY #30 tab 01/30/21 tablet,extended release 24 hr tramadol 50 mg tablet 50 mg PO BID PRN #14 tab 03/10/21 Allergies Allergy/AdvReac Type Severity Reaction Status Date / Time No Known Allergies Allergy Verified 03/26/21 14:47 Review of Systems Review of Systems Yes all other systems are reviewed and are negative Constitutional: Reports no additional constitutional complaints, Denies body ache(s), Denies chills, Denies fever(s), Denies headache(s) and Denies weakness Eyes: Reports no additional eye complaints and Denies change in vision Reports system reviewed and no additional complaints, except as documented, Denies dizziness, Denies headache(s), Denies nasal congestion, Denies nasal discharge and Denies neck pain Cardiovascular: Reports no additional cardiovascular complaints, Denies chest pain, Denies leg edema and Denies dyspnea Respiratory: Reports no additional respiratory complaints, Denies cough and Denies dyspnea Gastrointestinal: Reports no additional gastrointestinal complaints, Reports abdominal pain, Denies diarrhea, Reports nausea and Reports vomiting Genitourinary: Reports no additional female genitourinary complaints and Denies urinary incontinence Musculoskeletal: Reports no additional musculoskeletal complaints, Denies back p ain, Denies arthralgias, Denies joint swelling, Denies neck pain, Denies numbness and Denies tingling Skin/Breast: Reports system reviewed and no additional complaints, except as docu and Denies rash Reports system reviewed and no additional complaints, except as documented, Denies Abnormal speech present, Denies dizziness, Denies headache(s), Denies numbness, Denies tingling and Denies weakness Physical Exam Vital Signs: Vital Signs: Last Vital Signs Temp 97.9 F 03/26/21 17:52 Pulse 82 03/26/21 17:52 Resp 20 03/26/21 17:52 BP 177/72 H 03/26/21 17:52 Pulse Ox 93 03/26/21 17:52 Body Mass Index 24.0 Const: General: cooperative, healthy appearing, comfortable and no acute distress Orientation/consciousness: patient oriented x3 Limitations: no limitations HENMT: Head: Yes normal to inspection Ears: hearing grossly normal bilaterally General nose exam: Normal external nose present Face and sinus: Yes normal facial exam Mouth: Normal oral and palatal mucosa present Throat: Yes posterior oropharynx normal Eyes: General: appearance normal, both eyes and all related structures Pupils: Equal, round and reactive pupils present Neck: Neck: Yes normal visual inspection Chest: Chest palpation & inspection: normal inspection of the chest Resp: Effort & Inspection: normal respiratory effort Auscultation: clear to auscultation bilaterally Cardio: Rate: regular rate Rhythm: regular rhythm Peripheral pulses: Peripheral pulses 2+ throughout GI: Inspection: Yes normal to inspection Palpation (GI): Soft to palpation and Tenderness to palpation present (GI) (Upper quadrants bilaterally with no rebound or guarding) Auscultation: normal bowel sounds Back/Spine/Pelvis: Thoracic/Lumbar Spine: thoracic and lumbar spine normal to inspection Skin: General skin exam: no rashes or lesions noted Neuro: General: patient oriented x3, no focal motor deficits and normal sensation to monofilament Cranial nerves: Yes Equal, round and reactive pupils present Cognition (Neuro): normal cognition Speech: No Abnormal speech present Gait exam (Neuro): Normal gait present Motor exam (neuro): 5/5 motor strength present throughout Extrem: General: Yes normal to inspection, Yes no pedal edema and Yes no calf tenderness Course Course Course Narrative: 75-year-old female with a past medical history of asthma, [place] PD, CVA, emphysema, HTN, glaucoma, GERD, AAA, known hiatal hernia and reported gastric ulcers here with upper abdominal pain for the last few hours with associated vomiting. She has had intermittent pain and vomiting for several weeks to months. She has a follow-up appointment with General surgery and GI outpatient. She reports today her pain has persisted for several hours prompting an ER visit. No shortness of breath, chest pain, fevers, chills, diarrhea, constipation, urinary symptoms. On exam the patient has some upper quadrant abdominal pain with some tenderness but no rebound or guarding. Will check labs, UA, EKG due to age. Will give PPI, GI cocktail and reassessed [id number]-labs, EKG are reassuring. Patient still has some epigastric discomfort but apparently she refused the GI cocktail. Will re-attempt 1944-patient tells me that she did attempt to take several sips of GI cocktail but then vomited it up. I recommended the patient receive some antiemetics, analgesia through the IV and some IV fluids but she declined this. She tells me that she has follow-up both tomorrow and next week with GI and General surgery and would prefer to follow up outpatient with her providers. At this point I have not seen the patient did tolerate any p.o. fluids sign concerned at home t hat she may continue to vomit and become dehydrated. She is here with her partner and they both would like to go home. Patient will sign out against medical advice. I discussed with her that I would like to treat her with IV medications, potentially get additional imaging if she continues to have pain and vomiting and admission to the hospital if needed. MDM - Abdominal Pain MDM Narrative Medical decision making narrative: acs Differential Diagnosis Differential diagnosis: Likely gastritis and peptic ulcer disease Medical Records Attestation: I reviewed the patient's medical records. Lab Data Attestation: I reviewed the patient's lab results. Result diagrams: 03/26/21 16:06 03/26/21 16:06 Labs: Lab Results 03/26/21 03/26/21 03/26/21 Range/Units 16:06 16:06 17:32 WBC 6.3 (4.8-10.8) X10*3/uL RBC 4.55 (4.20-5.50) X10*6/uL Hgb 13.0 (12.0-16.0) g/dl Hct 40.5 (37-47) % MCV 89.0 (80-98) fL MCH 28.6 (27.0-33.0) pg MCHC 32.1 (31.0-35.0) g/dl RDW 14.0 (11.0-16.0) % Plt Count 221 (160-400) X10*3/uL MPV 10.5 (9.4-12.3) fL Immature Gran % (Auto) 0.3 (0.0-0.4) % Neut % (Auto) 64.8 (45-73) % Lymph % (Auto) 22.1 (20-40) % [place] % (Auto) 8.6 (2-11) % Eos % (Auto) 3.7 (0-4) % Baso % (Auto) 0.5 (0-2) % Lymph # (Auto) 1.4 (1.2-4.9) X10*3/uL [place] # (Auto) 0.5 (0.1-1.2) X10*3/uL Eos # (Auto) 0.2 (0.0-0.4) X10*3/uL Baso # (Auto) 0.0 (0.0-0.2) X10*3/uL Abs Immat Gran (auto) 0.02 (0.00-0.03) X10*3/uL Absolute Neuts (auto) 4.1 (2.0-8.3) X10*3/uL Absolute Nucleated RBC 0.000 (0.0-0.012) X10*3/uL Nucleated RBC % (auto) 0.0 (0.0-0.2) /100WBC PT (9.9-13.0) SEC INR (0.9-1.1) Sodium 144 (135-145) mmol/L Potassium 4.1 (3.3-5.1) mmol/L Chloride 108 (96-108) mmol/L Carbon Dioxide 29 (22-29) mmol/L Anion Gap 11 L (12-20) BUN 13 (9-16) mg/dL Creatinine 0.96 (0.5-1.4) mg/dL Estim Creat Clear Calc 43.7 Estimated GFR 57 Random Glucose 90 (60-115) mg/dL Calcium 9.8 D (8.4-10.2) mg/dL Total Bilirubin 0.8 (0.0-1.0) mg/dL Direct Bilirubin 0.3 (0.0-0.5) mg/dL AST 16 (5-31) U/L ALT 9 (0-31) U/L Alkaline Phosphatase 158 H (39-117) U/L Troponin I High Sens 5.7 (<3.5-17.0) ng/L Total Protein 7.1 (6.5-8.0) g/dL Albumin 4.3 (3.5-5.0) g/dL Lipase 10 (8-78) U/L Urine Color Urine Appearance Urine pH (5.0-8.0) Ur Specific [place] (1.005-1.025) Urine Protein (NEG-TRACE) MG/DL Urine Glucose (UA) (NEG) MG/DL Urine Ketones (NEG) MG/DL Urine Blood (NEG) Urine Nitrite (NEG) Ur Leukocyte Esterase (NEG) Urine RBC (0) /HPF Urine WBC (0-4) /HPF Ur Squamous Epith Cells /LPF Urine Bacteria /LPF 03/26/21 03/26/21 Range/Units 17:32 17:55 WBC (4.8-10.8) X10*3/uL RBC (4.20-5.50) X10*6/uL Hgb (12.0-16.0) g/dl Hct (37-47) % MCV (80-98) fL MCH (27.0-33.0) pg MCHC (31.0-35.0) g/dl RDW (11.0-16.0) % Plt Count (160-400) X10*3/uL MPV (9.4-12.3) fL Immature Gran % (Auto) (0.0-0.4) % Neut % (Auto) (45-73) % Lymph % (Auto) (20-40) % [place] % (Auto) (2-11) % Eos % (Auto) (0-4) % Baso % (Auto) (0-2) % Lymph # (Auto) (1.2-4.9) X10*3/uL [place] # (Auto) (0.1-1.2) X10*3/uL Eos # (Auto) (0.0-0.4) X10*3/uL Baso # (Auto) (0.0-0.2) X10*3/uL Abs Immat Gran (auto) (0.00-0.03) X10*3/uL Absolute Neuts (auto) (2.0-8.3) X10*3/uL Absolute Nucleated RBC (0.0-0.012) X10*3/uL Nucleated RBC % (auto) (0.0-0.2) /100WBC PT 11.5 (9.9-13.0) SEC INR 1.0 (0.9-1.1) Sodium (135-145) mmol/L Potassium (3.3-5.1) mmol/L Chloride (96-108) mmol/L Carbon Dioxide (22-29) mmol/L Anion Gap (12-20) BUN (9-16) mg/dL Creatinine (0.5-1.4) mg/dL Estim Creat Clear Calc Estimated GFR Random Glucose (60-115) mg/dL Calcium (8.4-10.2) mg/dL Total Bilirubin (0.0-1.0) mg/dL Direct Bilirubin (0.0-0.5) mg/dL AST (5-31) U/L ALT (0-31) U/L Alkaline Phosphatase (39-117) U/L Troponin I High Sens (<3.5-17.0) ng/L Total Protein (6.5-8.0) g/dL Albumin (3.5-5.0) g/dL Lipase (8-78) U/L Urine Color YELLOW Urine Appearance HAZY Urine pH 5.5 (5.0-8.0) Ur Specific [place] 1.025 (1.005-1.025) Urine Protein NEG (NEG-TRACE) MG/DL Urine Glucose (UA) NEG (NEG) MG/DL Urine Ketones NEG (NEG) MG/DL Urine Blood TRACE (NEG) Urine Nitrite NEG (NEG) Ur Leukocyte Esterase 2+ H (NEG) Urine RBC 1-4 (0) /HPF Urine WBC 30-49 H (0-4) /HPF Ur Squamous Epith Cells 1+ /LPF Urine Bacteria 2+ /LPF ECG Data Attestation: I personally reviewed and interpreted this ECG as follows: ECG interpretation date: 03/26/21 ECG interpretation time: 16:29 Interpretation: Normal sinus rhythm with PVCs with occasional PACs with a rate of 88, normal PA, normal QRS, normal QT Discharge Plan Discharge Clinical Impression: Abdominal pain Patient Disposition: Left Against Medical Advice Instructions: Abdominal Pain (ED) Additional Instructions: You tell me you were unable to tolerate the medication by mouth due to vomiting. I recommended IV medications for nausea as well as IV fluids. If you continue to vomit and have pain we would consider additional testing and possible admission to the hospital. You declined this. Please follow-up with your GI doctor and surgeon outpatient as scheduled. Prescriptions: No Action clopidogrel [Plavix] 75 mg tablet 75 mg PO DAILY Qty: 30 RF: 2 isosorbide mononitrate 30 mg tablet extended release 24 hr 30 mg PO DAILY Qty: 30 RF: 0 albuterol sulfate 90 mcg/actuation HFA aerosol inhaler 1 inh inhalation QID PRN (Reason: shortness of breath or wheezing) Qty: 8.5 RF: 0 albuterol sulfate 2.5 mg/0.5 mL solution for nebulization 5 mg inhalation Q4H PRN (Reason: shortness of breath or wheezing) Qty: 30 RF: 0 (DME) AeroEclipse II Nebulizer Misc See Rx Instructions .ROUTE .MEDSUPPLY Qty: 1 RF: 0 Tylenol 500 mg tablet RF: 0 tramadol 50 mg tablet 50 mg PO BID PRN (Reason: pain) Qty: 14 RF: 0 omeprazole 20 mg capsule,delayed release(DR/EC) 20 mg PO DAILY RF: 0 lisinopril 30 mg tablet 30 mg PO DAILY RF: 0 aspirin 81 mg tablet,delayed release (DR/EC) 81 mg PO DAILY RF: 0 clopidogrel 75 mg tablet 75 mg PO DAILY RF: 0 atorvastatin 80 mg tablet 80 mg PO DAILY RF: 0 latanoprost 0.005 % drops 1 drp ophthalmic (eye) BEDTIME RF: 0 ranitidine HCl 150 mg tablet 150 mg PO BID RF: 0 nitroglycerin 0.4 mg tablet, sublingual 0.4 mg sublingual Q5M PRN (Reason: chest pain) Qty: 30 RF: 5 Trelegy Ellipta 100-62.5-25 mcg blister with device 1 inh inhalation DAILY 30 Days Qty: 60 RF: 11 ipratropium-albuterol 0.5 mg-3 mg(2.5 mg base)/3 mL solution for nebulization 3 ml inhalation QID 30 Days Qty: 360 RF: 11 prednisone 20 mg tablet 20 mg PO DAILY 10 Days Qty: 15 RF: 0 doxycycline hyclate 100 mg capsule 100 mg PO BID 10 Days Qty: 20 RF: 0 Stand Alone Forms: Against Medical Advice Interventions: ED Discharge Assessment Last Done: 03/26/21 20:26 Discharge Date/Time: 03/26/21 20:28 [facility] Past Medical History Attestation statement: The following information was validated with the patient. Source: old records reviewed and nursing notes reviewed Medical History Asthma COPD (chronic obstructive pulmonary disease) CVA (cerebral vascular accident) Dyspnea Emphysema lung Emphysema of lung Essential hypertension Glaucoma Hernia Mild acid reflux Tachycardia Surgical History H/O carotid endarterectomy (04/01/20) History of AAA (abdominal aortic aneurysm) repair Hx of shoulder surgery Hx of varicose vein stripping Family History Family History Father No problems noted. Mother No problems noted. Sister No problems noted. Sister No problems noted. Sister No problems noted. Sister No problems noted. Sister Cancer Son No problems noted. Social History Social History Alcohol intake: unknown Patient Tobacco Use Status: Former Tobacco user Quit Date: 2019 Tobacco use type: Cigarette Cigarette Packs Per Day: 4 Cigarettes Per Day: 80.0 Years Smoked: 65 Advance Directives: Yes Advance Directives Information Provided: No Advance Directives on File: No
[2021-03-26 16:44] LABS: Alanine Aminotransferase 9 U/L (0-31); Albumin Level 4.3 g/dL (3.5-5.0); Alkaline Phosphatase 158 U/L (39-117); Anion Gap 11 (12-20); Aspartate Amino Transferase 16 U/L (5-31); Bilirubin Direct 0.3 mg/dL (0.0-0.5); Bilirubin Total 0.8 mg/dL (0.0-1.0); Blood Urea Nitrogen 13 mg/dL (9-16); Calcium 9.8 mg/dL (8.4-10.2); Carbon Dioxide 29 mmol/L (22-29); Chloride 108 mmol/L (96-108); Creatinine Clr Calc Pharmacy 43.7; Estimated Glomerular Filt Rate 57; Glucose Random 90 mg/dL (60-115); Lipase 10 U/L (8-78); Potassium 4.1 mmol/L (3.3-5.1); Sodium 144 mmol/L (135-145); Total Protein 7.1 g/dL (6.5-8.0)
[2021-03-26] MEDS: Lidocaine HCl Viscous 2 % 15 ML SOLUTION MUCOUS MEM (17:25)
[2021-03-26] MEDS: Famotidine/PF 20 MG/2 ML VIAL IVPUSH (17:25)
[2021-03-26] MEDS: Magnesium Hydrox/Alum Hydrox 30 ML ORAL.SUSP PO (17:25)
[2021-03-26 17:52] VITALS: BP 177/72; PULSE 82; RESP 20; TEMP 36.6; O2SAT 93
[2021-03-26 17:56] LABS: Prothrombin Time 11.5 SEC (9.9-13.0)
[2021-03-26 18:06] LABS: Appearance Urine HAZY; Color Urine YELLOW; Glucose Urine UA NEG (NEG); Leukocyte Esterase Urine 2+ (NEG); Nitrite Urine NEG (NEG); PH 5.5 (5.0-8.0); Specific Gravity - Urine 1.025 (1.005-1.025); UACC Culture Trigger YES; Urine Blood TRACE (NEG); Urine Ketones NEG (NEG); Urine Protein NEG (NEG-TRACE)
[2021-03-26 18:09] LABS: Troponin-I High Sensitivity 5.7 ng/L (<3.5-17.0)
[2021-03-26 18:19] LABS: Bacteria Urine 2+ /LPF; Squamous Epithelial Cell Urine 1+ /LPF
[2021-03-26 18:20] LABS: WBC Urine 30-49 /HPF (0-4)
== END 2021-03-26 20:28 | disposition left against medical advice (07) ==
PROVIDERS: Nurse Practitioner Family; Emergency Provider Emergency Medicine Emergency Medical Services; PCP Internal Medicine Medical Oncology
DX: R10.84 Generalized abdominal pain (principal); J44.9 Chronic obstructive pulmonary disease, unspecified; I10 Essential (primary) hypertension; Z79.899 Other long term (current) drug therapy; Z79.82 Long term (current) use of aspirin
CPT/HCPCS: 36415; 80053; 81001; 82248; 83690; 84484; 85025; 85610; 93005; 96374; 99284

== ENCOUNTER → 2021-03-27 15:31 | Outpatient (BNVA) | payer MEDICARE, MEDICAID, SELFPAY | PROVIDERS: PCP Internal Medicine Medical Oncology; Visit Provider Surgery | DX: Z87.19 Personal history of other diseases of the digestive system (principal) | CPT/HCPCS: 99202 ==

== ENCOUNTER → 2021-04-15 11:16 | Outpatient (BNVA) | payer MEDICARE, MEDICAID, SELFPAY | PROVIDERS: PCP Internal Medicine Medical Oncology; Visit Provider Nurse Practitioner | DX: K21.9 Gastro-esophageal reflux disease without esophagitis (principal); R14.0 Abdominal distension (gaseous); R63.4 Abnormal weight loss; R68.81 Early satiety | CPT/HCPCS: 99212 ==

== ENCOUNTER 2021-04-24 10:30 | Outpatient (REF) | payer MEDICARE, MEDICAID, SELFPAY ==
[2021-04-24 11:16] LABS: Blood Urea Nitrogen 9 mg/dL (9-16); Estimated Glomerular Filt Rate > 60
== END 2021-04-24 10:31 | disposition home or self-care (01) ==
LOC: HO.LAB 10:30
PROVIDERS: PCP Internal Medicine Medical Oncology; Visit Provider Surgery
DX: Z87.19 Personal history of other diseases of the digestive system (principal)
CPT/HCPCS: 36415; 82565; 84520

== ENCOUNTER → 2021-04-29 13:41 | Outpatient (BNVA) | payer MEDICARE, MEDICAID, SELFPAY | PROVIDERS: PCP Internal Medicine Medical Oncology; Referring Provider Internal Medicine Medical Oncology; Visit Provider Internal Medicine | DX: I71.4 Abdominal aortic aneurysm, without rupture (principal); I10 Essential (primary) hypertension; I63.231 Cerebral infarction due to unspecified occlusion or stenosis of right carotid arteries; R07.2 Precordial pain; R94.39 Abnormal result of other cardiovascular function study | CPT/HCPCS: 99212 ==

== ENCOUNTER 2021-04-30 11:44 | Outpatient (REF) | payer MEDICARE, MEDICAID, SELFPAY ==
--- NOTE | ~2021-04-30 | CT_ITS ---
EXAMINATION: CT ABDOMEN AND PELVIS WITH CONTRAST CLINICAL INFORMATION: Personal history of digestive disorder. COMPARISON: None TECHNIQUE: Multidetector volumetric images were obtained from the superior aspect of the liver through the pubic symphysis following administration 85 mL of Omnipaque 350 intravenous contrast. Sagittal and coronal reformatted images were obtained on the technologist's workstation. Oral contrast: No This CT examination was performed using dose optimization techniques as appropriate, variously including the following: *Automated exposure control *Adjustment of mA and/or kV according to patient size (this includes techniques or standardized protocols for targeted exams where dose is matched to indication/reason for exam; i.e. extremities or head) *Use of iterative reconstruction technique DLP: 296 mGy-cm FINDINGS: LUNG BASES: The lung bases are clear. The heart size is normal. LIVER, GALLBLADDER, AND BILIARY TREE: The liver is normal in size, shape, and attenuation. No focal hepatic lesion or biliary ductal dilatation is present. The gallbladder is unremarkable with no evidence of radiopaque gallstones, gallbladder wall thickening, or obvious pericholecystic inflammatory changes. PANCREAS: Unremarkable. SPLEEN: Unremarkable. ADRENAL GLANDS: Unremarkable. KIDNEYS AND URETERS: The kidneys are normal in size, shape, and attenuation. No hydronephrosis, hydroureter, or calculi seen. No perinephric stranding. BLADDER: Unremarkable. GASTROINTESTINAL TRACT: There is moderate stool and diverticuli in colon without any significant distention or diverticulitis. Oral contrast opacified small bowel loops are normal. The small bowel loops unremarkable. Appendix is not visualized. The stomach is nondistended. ABDOMINAL WALL: No significant hernia is appreciated. LYMPH NODES: Normal. VASCULAR: Aortoiliac stent graft in place with thrombus within the graft in the proximal segment. The left iliac graft has no flow or contrast enhancement likely thrombosed. PELVIC VISCERA: The uterus is anteverted and appears unremarkable. There is no free fluid in the pelvis. OSSEOUS STRUCTURES: Unremarkable. CT/CT abdomen pelvis w con IMPRESSION: No acute intra-abdominal process seen. Diffuse sigmoid and scattered rest of the colon diverticulosis without diverticulitis. Mild constipation. Aortoiliac stent graft noted. 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 Thrombosed left common iliac stent was noted on the previous CT exam 08/27/2020. There was retrograde filling of the left external iliac artery on the previous study as well as on the present exam.
[2021-04-30] MEDS: Barium Sulfate Oral (Berry) 450 ML ORAL.SUSP PO (14:37)
[2021-04-30] MEDS: iohexoL 350 MG/ML 100 ML INFUS..BTL IV (14:37)
== END 2021-04-30 11:45 | disposition home or self-care (01) ==
LOC: HO.CT 11:44
PROVIDERS: PCP Internal Medicine Medical Oncology; Visit Provider Surgery
DX: R10.9 Unspecified abdominal pain (principal); R11.2 Nausea with vomiting, unspecified; Z87.19 Personal history of other diseases of the digestive system
CPT/HCPCS: 74177; Q9967

== ENCOUNTER 2021-05-07 08:19 | Emergency (ER) | payer MEDICARE, MEDICAID, SELFPAY ==
[2021-05-07 08:33] VITALS: BMI 23.1
[2021-05-07 08:35] VITALS: BP 113/58; PULSE 90; RESP 18; TEMP 36.5; O2SAT 93
--- NOTE | 2021-05-07 08:52 | ECG_ITS ---
Test Reason : abdominal pain Blood Pressure : / mmHG Vent. Rate : 106 BPM Atrial Rate : 106 BPM P-R Int : 126 ms QRS Dur : 072 ms QT Int : 352 ms P-R-T Axes : 043 034 062 degrees QTc Int : 467 ms Sinus tachycardia with Premature atrial complexes with Aberrant conduction Low voltage QRS Abnormal ECG No significant changes seen Referred By: Yusra Kahn Electronically Signed By:KIRSTEN GILL MD
--- NOTE | 2021-05-07 08:53 | ED_ITS ---
HPI - Abdominal Pain General Chief Complaint: Abdominal Pain Stated Complaint: lt side abd pain, vomiting Time Seen by Provider: 05/07/21 08:52 Source: patient Mode of arrival: ambulatory Limitations: no limitations History of Present Illness HPI narrative: 75-year-old female came in for evaluation of the left lower abdominal pain. 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 Patient describes the pain as a sharp stabbing pain in the left lower quadrant, no radiation localized to the left lower abdominal. No relieving factor, no aggravating factor. No other associated symptoms. Related Data Home Medications Medication Instructions Recorded Confirmed aspirin 81 mg tablet,delayed 81 mg PO DAILY 04/18/20 05/07/21 release atorvastatin 80 mg tablet 80 mg PO DAILY 04/18/20 05/07/21 latanoprost 0.005 % eye drops 1 drp OPHTHALMIC (EYE) BEDTIME 04/18/20 05/07/21 lisinopril 40 mg tablet 40 mg PO DAILY 04/29/21 05/07/21 Previous Rx's Medication Instructions Recorded albuterol sulfate 90 mcg/actuation 1 inh INHALATION QID PRN #8.5 g 08/16/20 aerosol inhaler fluticasone fur. 100 mcg-umeclid 1 inh INHALATION DAILY 30 Days #60 10/08/20 62.5 mcg-vilant 25 mcg ea inhalat.powder (Trelegy Ellipta) ipratropium 0.5 mg-albuterol 3 mg 3 ml INHALATION QID 30 Days #360 ml 11/22/20 (2.5 mg base)/3 mL nebulization soln clopidogrel 75 mg tablet (Plavix) 75 mg PO DAILY #30 tab 11/28/20 tramadol 50 mg tablet 50 mg PO BID PRN #14 tab 03/10/21 [id number] 1 cap PO .TIDAC 30 Days #90 cap 04/15/21 24,000-76,000-120,000 unit capsule,delayed rel (Creon) omeprazole 20 mg capsule,delayed 20 mg PO BID 30 Days #60 cap 04/15/21 release simethicone 180 mg capsule 180 mg PO QID 30 Days #120 cap 04/15/21 isosorbide mononitrate 60 mg 60 mg PO DAILY #90 tab 04/29/21 tablet,extended release 24 hr nitroglycerin 0.4 mg sublingual 0.4 mg SUBLINGUAL Q5M PRN #30 tab 04/29/21 tablet apixaban 5 mg tablet (Eliquis) 5 mg PO BID #30 tab 05/07/21 Allergies Allergy/AdvReac Type Severity Reaction Status Date / Time Penicillins Allergy Unknown unk Verified 04/29/21 14:09 Review of Systems Review of Systems All other systems are reviewed and are negative Constitutional: Reports as per HPI and Reports no additional constitutional complaints Eyes: Reports as per HPI and Reports no additional eye complaints Reports system reviewed and no additional complaints, except as documented Cardiovascular: Reports as per HPI and Reports no additional cardiovascular complaints Respiratory: Reports as per HPI and Reports no additional respiratory complaints Gastrointestinal: Reports as per HPI and Reports no additional gastrointestinal complaints Genitourinary: Reports no additional female genitourinary complaints Musculoskeletal: Reports no additional musculoskeletal complaints Skin/Breast: Reports system reviewed and no additional complaints, except as docu Psychiatric: Reports no additional psychiatric complaints Endocrine: Reports no additional endocrine complaints Hematologic/Lymphatic: Reports no additional hematologic/lymphatic complaints Allergic/Immunologic: Reports no additional allergic/immunologic complaints Reports system reviewed and no additional complaints, except as documented and Reports Abnormal speech present Physical Exam Vital Signs: Vital Signs: Last Vital Signs Temp 97.7 F 05/07/21 08:35 Pulse 92 05/07/21 10:07 Resp 16 05/07/21 10:07 BP 132/66 05/07/21 10:07 Pulse Ox 98 05/07/21 10:07 Body Mass Index 23.1 Vital signs have been reviewed as appeared to be correct. Blood pressure normal. Heart rate normal. Respiration rate normal. Temperature normal. Oxygen saturation normal. Appearance: Alert. Oriented X3. No acute distress. Head: Normal external exam. Normocephalic. Atraumatic. No Claros signs noted. No raccoon eyes noted Eyes: PERRLA. EOMI. Conjunctiva and sclera normal. Eyelids normal. ENT: TM's Normal. Pharynx normal. Uvula midline. Moist mucous membranes. No trismus noted. No drooling noted. No muffled voice noted. Neck: Normal inspection. Neck supple. FROM. No adenopathy. Thyroid Normal. No meningeal signs. No neck mass noted. CVS: Normal heart rate and rhythm. Heart sound normal. No murmurs noted. Pulses normal throughout. Respiratory: No respiratory distress. Painless inspiration. Breath sounds normal. No wheezes/rales/rhonchi noted. Chest nontender. No accessory muscle usage noted or decreased air movement noted. Abdomen: Soft, left lower quadrant tenderness. Bowel sounds normal in all 4 quadrants. No distention noted. No organomegaly noted. No visible injury noted. Back: No CVA tenderness. Full range of motion noted. Skin: Skin warm and dry. Normal skin color. Normal skin turgor. No rashes/lesions/lacerations noted. Extremities: No lower extremity edema. Extremities exhibit normal range of motion. Extremities nontender. Neuro: Oriented X 3. Cranial nerve exam: II-XII are grossly intact No motor deficit. No sensory deficit. Reflexes normal. Course Course Course Narrative: 75 years old female with acute on chronic abdominal pain, patient was recently seen in the emergency department for acute on chronic abdominal pain, patient also was evaluated by Dr. 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 The case discussed with Dr. Marion who also follows the patient for her chronic vascular disease, he recommended to start the patient on Eliquis 5 mg b.i.d. and follow up with her tomorrow in his office as an outpatient. MDM - Abdominal Pain Medical Records Attestation: I reviewed the patient's medical records. Lab Data Attestation: I reviewed the patient's lab results. Result diagrams: 05/07/21 09:04 05/07/21 09:04 Labs: Lab Results 05/07/21 05/07/21 05/07/21 Range/Units 09:04 09:04 09:04 WBC 9.0 (4.8-10.8) X10*3/uL RBC 4.27 (4.20-5.50) X10*6/uL Hgb 12.4 (12.0-16.0) g/dl Hct 38.8 (37-47) % MCV 90.9 (80-98) fL MCH 29.0 (27.0-33.0) pg MCHC 32.0 (31.0-35.0) g/dl RDW 13.6 (11.0-16.0) % Plt Count 236 (160-400) X10*3/uL MPV 11.6 (9.4-12.3) fL Immature Gran % (Auto) 0.3 (0.0-0.4) % Neut % (Auto) 77.5 H (45-73) % Lymph % (Auto) 11.7 L (20-40) % [place] % (Auto) 8.4 (2-11) % Eos % (Auto) 1.8 (0-4) % Baso % (Auto) 0.3 (0-2) % Lymph # (Auto) 1.1 L (1.2-4.9) X10*3/uL [place] # (Auto) 0.8 (0.1-1.2) X10*3/uL Eos # (Auto) 0.2 (0.0-0.4) X10*3/uL Baso # (Auto) 0.0 (0.0-0.2) X10*3/uL Abs Immat Gran (auto) 0.03 (0.00-0.03) X10*3/uL Absolute Neuts (auto) 7.0 (2.0-8.3) X10*3/uL Absolute Nucleated RBC 0.000 (0.0-0.012) X10*3/uL Nucleated RBC % (auto) 0.0 (0.0-0.2) /100WBC Sodium 139 (135-145) mmol/L Potassium 4.2 (3.3-5.1) mmol/L Chloride 110 H (96-108) mmol/L Carbon Dioxide 19 L (22-29) mmol/L Anion Gap 14 (12-20) BUN 11 (9-16) mg/dL Creatinine 0.84 (0.5-1.4) mg/dL Estim Creat Clear Calc 49.9 Estimated GFR > 60 Random Glucose 97 (60-115) mg/dL Calcium 8.9 D (8.4-10.2) mg/dL Total Bilirubin 0.7 (0.0-1.0) mg/dL Direct Bilirubin 0.2 (0.0-0.5) mg/dL AST 18 (5-31) U/L ALT 7 (0-31) U/L Alkaline Phosphatase 117 D (39-117) U/L Total Protein 6.8 (6.5-8.0) g/dL Albumin 3.8 (3.5-5.0) g/dL Lipase 8 (8-78) U/L Urine Color Urine Appearance Urine pH (5.0-8.0) Ur Specific [place] (1.005-1.025) Urine Protein (NEG-TRACE) MG/DL Urine Glucose (UA) (NEG) MG/DL Urine Ketones (NEG) MG/DL Urine Blood (NEG) Urine Nitrite (NEG) Ur Leukocyte Esterase (NEG) Urine RBC (0) /HPF Urine WBC (0-4) /HPF Ur Squamous Epith Cells /LPF Urine Bacteria /LPF COVID-19 (DEVANTE) Negative (Negative) COVID-19 Clin Com See Note 05/07/21 Range/Units 10:34 WBC (4.8-10.8) X10*3/uL RBC (4.20-5.50) X10*6/uL Hgb (12.0-16.0) g/dl Hct (37-47) % MCV (80-98) fL MCH (27.0-33.0) pg MCHC (31.0-35.0) g/dl RDW (11.0-16.0) % Plt Count (160-400) X10*3/uL MPV (9.4-12.3) fL Immature Gran % (Auto) (0.0-0.4) % Neut % (Auto) (45-73) % Lymph % (Auto) (20-40) % [place] % (Auto) (2-11) % Eos % (Auto) (0-4) % Baso % (Auto) (0-2) % Lymph # (Auto) (1.2-4.9) X10*3/uL [place] # (Auto) (0.1-1.2) X10*3/uL Eos # (Auto) (0.0-0.4) X10*3/uL Baso # (Auto) (0.0-0.2) X10*3/uL Abs Immat Gran (auto) (0.00-0.03) X10*3/uL Absolute Neuts (auto) (2.0-8.3) X10*3/uL Absolute Nucleated RBC (0.0-0.012) X10*3/uL Nucleated RBC % (auto) (0.0-0.2) /100WBC Sodium (135-145) mmol/L Potassium (3.3-5.1) mmol/L Chloride (96-108) mmol/L Carbon Dioxide (22-29) mmol/L Anion Gap (12-20) BUN (9-16) mg/dL Creatinine (0.5-1.4) mg/dL Estim Creat Clear Calc Estimated GFR Random Glucose (60-115) mg/dL Calcium (8.4-10.2) mg/dL Total Bilirubin (0.0-1.0) mg/dL Direct Bilirubin (0.0-0.5) mg/dL AST (5-31) U/L ALT (0-31) U/L Alkaline Phosphatase (39-117) U/L Total Protein (6.5-8.0) g/dL Albumin (3.5-5.0) g/dL Lipase (8-78) U/L Urine Color YELLOW Urine Appearance HAZY Urine pH 6.0 (5.0-8.0) Ur Specific [place] 1.025 (1.005-1.025) Urine Protein NEG (NEG-TRACE) MG/DL Urine Glucose (UA) NEG (NEG) MG/DL Urine Ketones NEG (NEG) MG/DL Urine Blood NEG (NEG) Urine Nitrite NEG (NEG) Ur Leukocyte Esterase 2+ H (NEG) Urine RBC 1-4 (0) /HPF Urine WBC 10-14 H (0-4) /HPF Ur Squamous Epith Cells 2+ /LPF Urine Bacteria TRACE /LPF COVID-19 (DEVANTE) (Negative) COVID-19 Clin Com Discharge Plan Discharge Clinical Impression: Abdominal pain Qualifiers: Abdominal location: unspecified location Qualified Code(s): R10.9 - Unspecified abdominal pain Arterial stent thrombosis Qualifiers: Encounter type: initial encounter Qualified Code(s): T82.868A - Thrombosis due to vascular prosthetic devices, implants and grafts, initial encounter Patient Disposition: Home, Self-Care Instructions: Abdominal Pain (ED) Prescriptions: New Eliquis 5 mg tablet 5 mg PO BID Qty: 30 RF: 0 No Action clopidogrel [Plavix] 75 mg tablet 75 mg PO DAILY Qty: 30 RF: 2 albuterol sulfate 90 mcg/actuation HFA aerosol inhaler 1 inh inhalation QID PRN (Reason: shortness of breath or wheezing) Qty: 8.5 RF: 0 tramadol 50 mg tablet 50 mg PO BID PRN (Reason: pain) Qty: 14 RF: 0 aspirin 81 mg tablet,delayed release (DR/EC) 81 mg PO DAILY RF: 0 atorvastatin 80 mg tablet 80 mg PO DAILY RF: 0 latanoprost 0.005 % drops 1 drp ophthalmic (eye) BEDTIME RF: 0 simethicone 180 mg capsule 180 mg PO QID 30 Days Qty: 120 RF: 3 Creon 24,000-76,000 -120,000 unit capsule,delayed release(DR/EC) 1 cap PO .TIDAC 30 Days Qty: 90 RF: 3 omeprazole 20 mg capsule,delayed release(DR/EC) 20 mg PO BID 30 Days Qty: 60 RF: 6 Trelegy Ellipta 100-62.5-25 mcg blister with device 1 inh inhalation DAILY 30 Days Qty: 60 RF: 11 ipratropium-albuterol 0.5 mg-3 mg(2.5 mg base)/3 mL solution for nebulization 3 ml inhalation QID 30 Days Qty: 360 RF: 11 lisinopril 40 mg tablet 40 mg PO DAILY RF: 0 isosorbide mononitrate 60 mg tablet extended release 24 hr 60 mg PO DAILY Qty: 90 RF: 4 nitroglycerin 0.4 mg tablet, sublingual 0.4 mg sublingual Q5M PRN (Reason: chest pain) Qty: 30 RF: 5 Referrals: Daniel Marion MD [Physician] - 1 day [facility] Past Medical History Medical History Asthma COPD (chronic obstructive pulmonary disease) CVA (cerebral vascular accident) Dyspnea Emphysema lung Emphysema of lung Essential hypertension Glaucoma Hernia History of pyloric channel ulcer Hydroureter, right Mild acid reflux Pernicious anemia Psoriasis Tachycardia Surgical History H/O carotid endarterectomy (04/01/20) History of AAA (abdominal aortic aneurysm) repair Hx of shoulder surgery Hx of varicose vein stripping Family History Family History Father No problems noted. Mother No problems noted. Sister No problems noted. Sister No problems noted. Sister No problems noted. Sister No problems noted. Sister Cancer Son No problems noted. Social History Social History Alcohol intake: never Patient Tobacco Use Status: Former Tobacco user Quit Date: 2019 Tobacco use type: Cigarette Cigarette Packs Per Day: 4 Cigarettes Per Day: 80.0 Years Smoked: 65 Use of substances other than those prescribed or required for medical reasons: No Advance Directives: No
--- NOTE | 2021-05-07 08:58 | PHA.MEDREC ---
Pharmacy Consult ? Medication Reconciliation Pharmacy has completed the medication reconciliation.
[2021-05-07] MEDS: 0.9 % Sodium Chloride 1,000 ML 999 ML IVCONT (09:04)
[2021-05-07 09:10] LABS: MANUAL DIFF FLAG NO
[2021-05-07 09:16] LABS: Basophils Percent Auto 0.3 % (0-2); Eosinophils Absolute Auto 0.2 X10*3/uL (0.0-0.4); Eosinophils Percent Auto 1.8 % (0-4); Hematocrit 38.8 % (37-47); Hemoglobin 12.4 g/dl (12.0-16.0); Imm Gran Abs Auto 0.03 X10*3/uL (0.00-0.03); Imm Gran Pct Auto 0.3 % (0.0-0.4); Lymphocytes Absolute Auto 1.1 X10*3/uL (1.2-4.9); Lymphocytes Percent Auto 11.7 % (20-40); Mean Corpuscular Volume 90.9 fL (80-98); Mean Platelet Volume 11.6 fL (9.4-12.3); Monocytes Absolute Auto 0.8 X10*3/uL (0.1-1.2); Monocytes Percent Auto 8.4 % (2-11); Neutrophils Percent Auto 77.5 % (45-73); Platelet Count 236 X10*3/uL (160-400); Red Blood Count 4.27 X10*6/uL (4.20-5.50); Red Cell Distribution Width 13.6 % (11.0-16.0)
[2021-05-07 09:27] LABS: COVID-19 Test Negative (Negative)
[2021-05-07] MEDS: Morphine Sulfate 2 MG/ML CARTRIDGE 1 MG IVPUSH (09:28)
[2021-05-07 09:29] LABS: Alanine Aminotransferase 7 U/L (0-31); Albumin Level 3.8 g/dL (3.5-5.0); Alkaline Phosphatase 117 U/L (39-117); Anion Gap 14 (12-20); Aspartate Amino Transferase 18 U/L (5-31); Bilirubin Direct 0.2 mg/dL (0.0-0.5); Bilirubin Total 0.7 mg/dL (0.0-1.0); Blood Urea Nitrogen 11 mg/dL (9-16); Calcium 8.9 mg/dL (8.4-10.2); Carbon Dioxide 19 mmol/L (22-29); Chloride 110 mmol/L (96-108); Creatinine Clr Calc Pharmacy 49.9; Estimated Glomerular Filt Rate > 60; Glucose Random 97 mg/dL (60-115); Lipase 8 U/L (8-78); Potassium 4.2 mmol/L (3.3-5.1); Sodium 139 mmol/L (135-145); Total Protein 6.8 g/dL (6.5-8.0)
[2021-05-07 10:07] VITALS: BP 132/66; PULSE 92; RESP 16; O2SAT 98
[2021-05-07 10:41] LABS: Appearance Urine HAZY; Color Urine YELLOW; Glucose Urine UA NEG (NEG); Leukocyte Esterase Urine 2+ (NEG); Nitrite Urine NEG (NEG); Specific Gravity - Urine 1.025 (1.005-1.025); UACC Culture Trigger YES; Urine Blood NEG (NEG); Urine Ketones NEG (NEG); Urine Protein NEG (NEG-TRACE)
[2021-05-07 10:54] LABS: Bacteria Urine TRACE /LPF; Squamous Epithelial Cell Urine 2+ /LPF
== END 2021-05-07 12:13 | disposition home or self-care (01) ==
PROVIDERS: Emergency Provider Emergency Medicine; PCP Internal Medicine Medical Oncology
DX: T82.868A Thrombosis due to vascular prosthetic devices, implants and grafts, initial encounter (principal); R10.30 Lower abdominal pain, unspecified; Y83.8 Other surgical procedures as the cause of abnormal reaction of the patient, or of later complication, without mention of misadventure at the time of the procedure; Y92.9 Unspecified place or not applicable; J43.9 Emphysema, unspecified; I10 Essential (primary) hypertension; Z86.73 Personal history of transient ischemic attack (TIA), and cerebral infarction without residual deficits; Z20.822 Contact with and (suspected) exposure to COVID-19
CPT/HCPCS: 36415; 80048; 80076; 81001; 83690; 85025; 87086; 87635; 93005; 96361; 96374; 99284; J2270

== ENCOUNTER → 2021-05-08 13:26 | Outpatient (BNVA) | payer MEDICARE, MEDICAID, SELFPAY | PROVIDERS: PCP Internal Medicine Medical Oncology; Visit Provider Surgery Vascular Surgery | DX: I71.4 Abdominal aortic aneurysm, without rupture (principal); I74.5 Embolism and thrombosis of iliac artery; J43.9 Emphysema, unspecified; I10 Essential (primary) hypertension; Z87.891 Personal history of nicotine dependence; Z86.73 Personal history of transient ischemic attack (TIA), and cerebral infarction without residual deficits; Z98.890 Other specified postprocedural states | CPT/HCPCS: 99212 ==

== ENCOUNTER → 2021-05-12 13:47 | Outpatient (BNVA) | payer MEDICARE, MEDICAID, SELFPAY | PROVIDERS: PCP Internal Medicine Medical Oncology; Visit Provider Surgery | DX: K55.1 Chronic vascular disorders of intestine (principal); R10.9 Unspecified abdominal pain | CPT/HCPCS: 99212 ==

== ENCOUNTER → 2021-05-20 13:44 | Outpatient (BNVA) | payer MEDICARE, MEDICAID, SELFPAY | PROVIDERS: PCP Internal Medicine Medical Oncology; Visit Provider Nurse Practitioner | DX: K21.9 Gastro-esophageal reflux disease without esophagitis (principal); R63.4 Abnormal weight loss; R14.0 Abdominal distension (gaseous); K30 Functional dyspepsia; F41.9 Anxiety disorder, unspecified; G47.00 Insomnia, unspecified | CPT/HCPCS: 99212 ==

== ENCOUNTER → 2021-06-03 09:30 | Outpatient (BNVA) | payer MEDICARE, MEDICAID, SELFPAY | PROVIDERS: PCP Internal Medicine Medical Oncology; Visit Provider Nurse Practitioner | DX: K30 Functional dyspepsia (principal); K21.9 Gastro-esophageal reflux disease without esophagitis; K59.04 Chronic idiopathic constipation; I82.409 Acute embolism and thrombosis of unspecified deep veins of unspecified lower extremity; R63.4 Abnormal weight loss | CPT/HCPCS: 99212 ==

== ENCOUNTER → 2021-06-19 11:09 | Outpatient (BNVA) | payer MEDICARE, MEDICAID, SELFPAY | PROVIDERS: PCP Internal Medicine Medical Oncology; Visit Provider Internal Medicine | DX: R94.39 Abnormal result of other cardiovascular function study (principal); I25.10 Atherosclerotic heart disease of native coronary artery without angina pectoris; I71.4 Abdominal aortic aneurysm, without rupture; I63.231 Cerebral infarction due to unspecified occlusion or stenosis of right carotid arteries; I10 Essential (primary) hypertension | CPT/HCPCS: 99212 ==

== ENCOUNTER → 2021-07-15 12:16 | Outpatient (BNVA) | payer MEDICARE, MEDICAID, SELFPAY | PROVIDERS: PCP Internal Medicine Medical Oncology; Visit Provider Nurse Practitioner | DX: K59.04 Chronic idiopathic constipation (principal); K21.9 Gastro-esophageal reflux disease without esophagitis; K30 Functional dyspepsia | CPT/HCPCS: 99212 ==

== ENCOUNTER 2021-07-27 12:22 | Emergency (ER) | payer MEDICARE, MEDICAID, SELFPAY ==
[2021-07-27 12:38] VITALS: BP 119/60; PULSE 100; RESP 19; TEMP 36.6; O2SAT 96; BMI 23.0
--- NOTE | 2021-07-27 15:35 | ED_ITS ---
HPI - General Adult General Chief complaint: General Medical Stated complaint: tongue bleeding Time Seen by Provider: 07/27/21 15:04 Source: patient Mode of arrival: ambulatory Limitations: no limitations History of Present Illness HPI narrative: 75-year-old frail female presents for tongue bleeding that is now resolved that happened prior to arrival. Patient is on apixaban, Plavix, aspirin. Patient states that she was eating strawberry and banana flavored Cherrios when her tongue started bleeding. States her tongue blood for 2-1/2 hours. States she vomited 3 times due to the blood and used up a box of SkemA enex. She is not nauseous now, not bleeding now. No other complaints, no chest pain, no shortness of breath, no abdominal pain, no nausea now, no vomiting now, no fevers, no cough Related Data Home Medications Medication Instructions Recorded Confirmed aspirin 81 mg tablet,delayed 81 mg PO DAILY 04/18/20 06/19/21 release atorvastatin 80 mg tablet 80 mg PO DAILY 04/18/20 06/19/21 latanoprost 0.005 % eye drops 1 drp OPHTHALMIC (EYE) BEDTIME 04/18/20 06/19/21 lisinopril 40 mg tablet 40 mg PO DAILY 04/29/21 06/19/21 oxycodone 5 mg tablet 5 mg PO QID PRN 05/08/21 06/19/21 Previous Rx's Medication Instructions Recorded albuterol sulfate 90 mcg/actuation 1 inh INHALATION QID PRN #8.5 g 08/16/20 aerosol inhaler fluticasone fur. 100 mcg-umeclid 1 inh INHALATION DAILY 30 Days #60 10/08/20 62.5 mcg-vilant 25 mcg ea inhalat.powder (Trelegy Ellipta) ipratropium 0.5 mg-albuterol 3 mg 3 ml INHALATION QID 30 Days #360 ml 11/22/20 (2.5 mg base)/3 mL nebulization soln clopidogrel 75 mg tablet (Plavix) 75 mg PO DAILY #30 tab 11/28/20 tramadol 50 mg tablet 50 mg PO BID PRN #14 tab 03/10/21 simethicone 180 mg capsule 180 mg PO QID 30 Days #120 cap 04/15/21 isosorbide mononitrate 60 mg 60 mg PO DAILY #90 tab 04/29/21 tablet,extended release 24 hr nitroglycerin 0.4 mg sublingual 0.4 mg SUBLINGUAL Q5M PRN #30 tab 04/29/21 tablet metoclopramide HCl 5 mg tablet 5 mg PO .TIDAC 30 Days #90 tab 05/20/21 (Reglan) apixaban 5 mg tablet (Eliquis) 5 mg PO BID #60 tab 06/03/21 sennosides 8.6 mg capsule (senna) 17.2 mg PO BEDTIME 30 Days #60 cap 06/03/21 omeprazole 20 mg capsule,delayed 20 mg PO BID 30 Days #60 cap 07/15/21 release mirtazapine 7.5 mg tablet 7.5 mg PO BEDTIME 30 Days #30 tab 07/18/21 Allergies Allergy/AdvReac Type Severity Reaction Status Date / Time Penicillins Allergy Unknown unk Verified 07/15/21 12:27 Review of Systems Constitutional: Constitutional: Denies fatigue, Denies fever(s) and Denies weakness ENT: Denies vertigo, Denies dizziness, Denies dry mouth, Denies otalgia, Denies facial pain, Denies lip swelling, Denies mouth lesions, Denies mouth pa in, Denies nasal trauma, Denies post nasal drip, Denies sinus pain, Denies sinus pressure, Denies sore throat, Denies throat swelling and Denies tongue swelling Comments: Tongue bleeding Cardiovascular: Cardiovascular: Denies chest pain, Denies syncope, Denies lightheadedness and Denies dyspnea Respiratory: Respiratory: Denies chest congestion, Denies cough and Denies dyspnea Gastrointestinal: Gastrointestinal: Denies abdominal pain, Denies hematochezia, Denies constipation, Denies diarrhea, Denies nausea, Denies vomiting and Reports hematemesis Musculoskeletal: Musculoskeletal: Reports no additional musculoskeletal complaints Neurologic: Denies confusion, Denies vertigo, Denies dizziness, Denies syncope and Denies weakness Psychiatric: Psychiatric: Denies anxiety, Denies confusion and Denies depression Endocrine: Endocrine: Denies fatigue Allergic/Immunologic: Allergic/Immunologic: Denies lip swelling, Denies throat swelling and Denies tongue swelling PMFSH Past Medical History Medical History Asthma COPD (chronic obstructive pulmonary disease) CVA (cerebral vascular accident) Dyspnea Emphysema lung Emphysema of lung Essential hypertension Glaucoma Hernia History of pyloric channel ulcer Hydroureter, right Mild acid reflux Pernicious anemia Psoriasis Tachycardia Surgical History H/O carotid endarterectomy (04/01/20) History of AAA (abdominal aortic aneurysm) repair Hx of shoulder surgery Hx of varicose vein stripping Family History Family History Father No problems noted. Mother No problems noted. Sister No problems noted. Sister No problems noted. Sister No problems noted. Sister No problems noted. Sister Cancer Son No problems noted. Social History Social History Alcohol intake: never Patient Tobacco Use Status: Former Tobacco user Quit Date: 2019 Tobacco use type: Cigarette Cigarette Packs Per Day: 4 Cigarettes Per Day: 80.0 Years Smoked: 65 Advance Directives: Yes Advance Directives on File: Yes Advance Directives Date on File: 06/11/21 Physical Exam Vital Signs: Vital Signs: Last Vital Signs Temp 98 F 07/27/21 12:38 Pulse 100 07/27/21 12:38 Resp 19 07/27/21 12:38 BP 119/60 07/27/21 12:38 Pulse Ox 96 07/27/21 12:38 BMI result Body Mass Index 23.0 Const: General: No confusion Nutritional Appearance: well nourished Orientation/consciousness: No confusion Limitations: no limitations HENMT: Head: Yes normal to inspection, Yes normocephalic and Yes atraumatic Ears: hearing grossly normal bilaterally, external ears normal, TM's normal bilaterally and EAC's normal General nose exam: Normal external nose present Face and sinus: Yes normal facial exam and Yes sinuses nontender Mouth: Normal oral and palatal mucosa present Throat: Yes posterior oropharynx normal Eyes: Conjunctivae: conjunctivae normal Pupils: Equal, round and reactive pupils present EOM: EOMs intact bilaterally Neck: Neck: Yes full ROM, Yes no lymphadenopathy and Yes supple Resp: Effort & Inspection: normal respiratory effort and able to speak in complete sentences Auscultation: clear to auscultation bilaterally, no crackles, no rales, no rhonchi and no wheezes Cardio: Rate: regular rate Rhythm: regular rhythm Heart sounds: S1 normal heart sound present and S2 normal heart sound present GI: Inspection: Yes normal to inspection Palpation (GI): Soft to palpation, nontender, no guarding and not rigid Percussion: Yes normal to percussion Auscultation: normal bowel sounds Skin: General skin exam: no rashes or lesions noted Neuro: General: No confusion Cranial nerves: Yes Equal, round and reactive pupils present Extrem: General: Yes normal to inspection and Yes full ROM Psych: Appearance: grossly normal Affect: normal affect Attitude: cooperative Thought process: Normal thought process present Course Course Course Narrative: 75-year-old female on anticoagulation presents for an episode of tongue bleeding that has now resolved. On exam, patient feels well, no nausea or vomiting, no abdominal pain, no lesions in her mouth that I can visualize. Posterior oropharynx is normal, there is no blood, no epistaxis Counseled patient to follow-up with her primary care provider, to call on Wednesday for follow-up appointment. All patient's questions were answered, return precautions of worsening bleeding, vomiting, any other new or concerning symptoms. Patient verbalized agreement understanding of plan. Discharge Plan Discharge Clinical Impression: History of hemorrhage of tongue Patient Disposition: Home, Self-Care Instructions: Blood Thinners (ED) Additional Instructions: Your physical exam was totally normal today. Your symptoms have resolved so I think you are safe to go home. Please call your primary care provider tomorrow morning for follow-up appointment this coming week. If you have this bleeding again, please return to emergency room. Please return for any other new or concerning symptoms Prescriptions: No Action clopidogrel [Plavix] 75 mg tablet 75 mg PO DAILY Qty: 30 RF: 2 mirtazapine 7.5 mg tablet 7.5 mg PO BEDTIME 30 Days Qty: 30 RF: 6 albuterol sulfate 90 mcg/actuation HFA aerosol inhaler 1 inh inhalation QID PRN (Reason: shortness of breath or wheezing) Qty: 8.5 RF: 0 tramadol 50 mg tablet 50 mg PO BID PRN (Reason: pain) Qty: 14 RF: 0 aspirin 81 mg tablet,delayed release (DR/EC) 81 mg PO DAILY RF: 0 atorvastatin 80 mg tablet 80 mg PO DAILY RF: 0 latanoprost 0.005 % drops 1 drp ophthalmic (eye) BEDTIME RF: 0 simethicone 180 mg capsule 180 mg PO QID 30 Days Qty: 120 RF: 3 Trelegy Ellipta 100-62.5-25 mcg blister with device 1 inh inhalation DAILY 30 Days Qty: 60 RF: 11 ipratropium-albuterol 0.5 mg-3 mg(2.5 mg base)/3 mL solution for nebulization 3 ml inhalation QID 30 Days Qty: 360 RF: 11 metoclopramide HCl [Reglan] 5 mg tablet 5 mg PO .TIDAC 30 Days Qty: 90 RF: 3 lisinopril 40 mg tablet 40 mg PO DAILY RF: 0 isosorbide mononitrate 60 mg tablet extended release 24 hr 60 mg PO DAILY Qty: 90 RF: 4 nitroglycerin 0.4 mg tablet, sublingual 0.4 mg sublingual Q5M PRN (Reason: chest pain) Qty: 30 RF: 5 senna 8.6 mg capsule 17.2 mg PO BEDTIME 30 Days Qty: 60 RF: 3 Eliquis 5 mg tablet 5 mg PO BID Qty: 60 RF: 3 omeprazole 20 mg capsule,delayed release(DR/EC) 20 mg PO BID 30 Days Qty: 60 RF: 6 oxycodone 5 mg tablet 5 mg PO QID PRNRF: 0 Interventions: ED Discharge Assessment Last Done: 07/27/21 15:44 Discharge Date/Time: 07/27/21 15:44
== END 2021-07-27 15:44 | disposition home or self-care (01) ==
PROVIDERS: Emergency Provider Emergency Medicine; PCP Internal Medicine Medical Oncology
DX: K92.0 Hematemesis (principal); K13.79 Other lesions of oral mucosa; Z79.82 Long term (current) use of aspirin; Z79.899 Other long term (current) drug therapy; Z87.891 Personal history of nicotine dependence
CPT/HCPCS: 99283

== ENCOUNTER → 2021-08-18 09:30 | Outpatient (BNVA) | payer MEDICARE, MEDICAID, SELFPAY | PROVIDERS: PCP Internal Medicine Medical Oncology; Visit Provider Internal Medicine | DX: R07.9 Chest pain, unspecified (principal); R94.39 Abnormal result of other cardiovascular function study; I25.10 Atherosclerotic heart disease of native coronary artery without angina pectoris; I10 Essential (primary) hypertension; I71.4 Abdominal aortic aneurysm, without rupture; Z86.73 Personal history of transient ischemic attack (TIA), and cerebral infarction without residual deficits; Z79.82 Long term (current) use of aspirin | CPT/HCPCS: 93005 ==

== ENCOUNTER → 2021-08-19 07:04 | Outpatient (REF) | payer MEDICARE, MEDICAID, SELFPAY ==
--- NOTE | 2021-08-19 07:12 | CA_ITS ---
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 Study Quality: Fair ECG Rhythm: Sinus with PACs Conclusions: - LVEF difficult to calculate due to ectopy; likely > 50%. - The basal inferior segment is hypokinetic. - There is mild aortic valve stenosis. - There is moderate mitral annular calcification. There is mild mitral valve regurgitation. - Small plaque is seen in the sino tubular ridge. Findings Left Ventricle Normal left ventricular cavity size. There is mildly increased left ventricular wall thickness. Diastolic function is indeterminate on the basis of available data. LVEF difficult to calculate due to ectopy; likely > 50%. Wall Motion Rest Echo Findings The basal inferior segment is hypokinetic. Right Ventricle Normal right ventricular cavity size. Likely grossly normal function; due to PACs, TAPSE/annular doppler difficult to interpret. Atria Both atria are normal in size. Aortic Valve There is moderate calcification of the aortic valve. There is mild aortic valve stenosis. The mean gradient is 10 mmHg. The aortic valve area is 1.91 cm2. There is mild aortic valve regurgitation. Mitral Valve There is moderate mitral annular calcification. There is mild mitral valve regurgitation. There is no mitral valve stenosis. Pulmonic Valve The pulmonic valve was not well visualized. Tricuspid Valve Normal tricuspid valve structure. There is trace tricuspid valve regurgitation. The pulmonary artery systolic pressure is normal. Great Vessels The aortic annulus, sinuses of valsalva, and asc aorta are normal in size. Small plaque is seen in the sino tubular ridge. Venous The inferior vena cava is normal in size and collapses greater than 50% with inspiration. Pericardium/Pleural There is no evidence of pericardial effusion. Prior Study Comparison Changes noted compared to prior study dated: 11/05/2020. See comments on LVEF. Measurements 2D Linear Measurements IVSd: 1.04 0.6-0.9/0.6-1.0 cm LVIDd: 4.32 3.9-5.3/4.2-5.9 cm LVIDd Index: 2.62 2.4-3.2/2.2-3.1 cm/m2 LVIDs: 2.52 2.0-3.6 cm LVPWd: 1.00 0.7-1.1 cm Ao Root: 2.70 2.1-3.5 cm LA Diam: 3.80 2.7-3.8/3.0-4.0 cm LAIDs Index: 2.30 1.5-2.3 cm/m2 LV Mass: 183.70 67-162/88-224 g LV Mass Index: 111.34 43-95/49-115 g/m2 LVOT Diam: 2.00 3.0+(-)1.3 cm 2D Systolic Function EF 4C: 44.40 >55% EF 2C: 51.10 >55% EF BiP: 48.70 >55% Mitral Valve MV Pk E: 1.04 MV PK A: 1.23 MV Decel Time: 229.00 E/A: 0.80 E'Lateral: 3.37 E'Medial: 5.00 E/E' Med: 20.80 E/E' Lat: 30.90 PHT: 67.00 MVA PHT: 3.28 Decel [place]: 4.53 Aortic Valve AoV Pk Leonardo: 2.06 AoV Mn Leonardo: 1.47 AoV VTI: 0.40 AoV Pk Grad: 17.00 Aov Mn Grad: 10.00 PHILOMENA Cont.VTI: 1.91 AI Pk Leonardo: 3.50 AI [place]: 2.54 LVOT LVOT Pk Leonardo: 1.18 LVOT Mn Leonardo: 0.79 LVOT VTI: 0.24 LVOT Pk Grad: 6.00 LVOT Mn Grad: 3.00 LVOT Diam: 2.00 LVOT Area: 3.14 Diastolic Function MV Pk E: 1.04 MV Pk A: 1.23 E/A: 0.80 E'Medial: 5.00 E/E' Med: 20.80 E' Laterial: 3.37 E/E' Lat: 30.90 Tricuspid Valve TR Pk Leonardo: 2.65 TR Pk Grad: 28.00 RA Press: 3.00 RVSP: 31.00 Great Vessels Aorta Ao Root-2D: 2.70 2.0-3.7 cm Ao Asc: 2.90 2.1-3.4 cm Updated in Other Vendor System with Status of Final Bucky Lawler MD electronically signed on 08/19/2021 4:24:20 PM with status of Final
[2021-08-19 08:09] LABS: Hematocrit 36.8 % (37.0-47.0); Hemoglobin 11.5 g/dl (12.0-16.0); Mean Corpuscular HGB Conc 31.3 g/dl (31.0-35.0); Mean Corpuscular Hemoglobin 28.6 pg (27.0-33.0); Mean Corpuscular Volume 91.5 fL (80.0-98.0); Mean Platelet Volume 12.2 fL (9.4-12.3); Platelet Count 203 X10*3/uL (160-400); Red Blood Count 4.02 X10*6/uL (4.20-5.50); Red Cell Distribution Width 14.6 % (11.0-16.0); White Blood Count 4.9 X10*3/uL (4.8-10.8)
[2021-08-19 08:16] LABS: INTERNATIONAL NORM RATIO 1.4 (0.9-1.1); Prothrombin Time 15.8 SEC (9.9-13.0)
[2021-08-19 08:40] LABS: Anion Gap 13 (12-20); Blood Urea Nitrogen 19 mg/dL (9-16); Calcium 9.3 mg/dL (8.4-10.2); Carbon Dioxide 25 mmol/L (22-29); Chloride 109 mmol/L (96-108); Estimated Glomerular Filt Rate 58; Glucose Random 94 mg/dL (60-115); Potassium 4.6 mmol/L (3.3-5.1); Sodium 142 mmol/L (135-145)
== END ==
LOC: HO.CARD 07:04
PROVIDERS: PCP Internal Medicine Medical Oncology; Visit Provider Internal Medicine
DX: I25.10 Atherosclerotic heart disease of native coronary artery without angina pectoris (principal); R94.39 Abnormal result of other cardiovascular function study; I10 Essential (primary) hypertension; I71.4 Abdominal aortic aneurysm, without rupture; I63.231 Cerebral infarction due to unspecified occlusion or stenosis of right carotid arteries
CPT/HCPCS: 36415; 80048; 85027; 85610; 93306; 99212

== ENCOUNTER 2021-08-20 15:42 | Outpatient (REF) | payer MEDICARE, MEDICAID, SELFPAY ==
[2021-08-20 16:00] LABS: COVID-19 Test Negative (Negative)
== END 2021-08-20 15:43 | disposition home or self-care (01) ==
LOC: HO.LAB 15:42
PROVIDERS: Internal Medicine; PCP Internal Medicine Medical Oncology; Visit Provider Internal Medicine
DX: Z20.822 Contact with and (suspected) exposure to COVID-19 (principal)
CPT/HCPCS: 87635

== ENCOUNTER 2021-09-11 11:38 | Outpatient (REF) | payer MEDICARE, MEDICAID, SELFPAY ==
[2021-09-11 12:07] LABS: MANUAL DIFF FLAG NO
[2021-09-11 12:38] LABS: Basophils Percent Auto 0.7 % (0-2); Eosinophils Absolute Auto 0.3 X10*3/uL (0.0-0.4); Eosinophils Percent Auto 5.2 % (0-4); Hematocrit 40.4 % (37.0-47.0); Hemoglobin 12.4 g/dl (12.0-16.0); Imm Gran Abs Auto 0.02 X10*3/uL (0.00-0.03); Imm Gran Pct Auto 0.3 % (0.0-0.4); Lymphocytes Absolute Auto 1.4 X10*3/uL (1.2-4.9); Lymphocytes Percent Auto 24.1 % (20-40); Mean Corpuscular HGB Conc 30.7 g/dl (31.0-35.0); Mean Corpuscular Hemoglobin 27.3 pg (27.0-33.0); Mean Platelet Volume 11.8 fL (9.4-12.3); Monocytes Absolute Auto 0.5 X10*3/uL (0.1-1.2); Monocytes Percent Auto 7.7 % (2-11); Neutrophils Absolute Auto 3.6 x10*3/uL (2.0-8.3); Platelet Count 231 X10*3/uL (160-400); Red Blood Count 4.54 X10*6/uL (4.20-5.50); Red Cell Distribution Width 14.1 % (11.0-16.0); White Blood Count 5.8 X10*3/uL (4.8-10.8)
[2021-09-11 12:45] LABS: INTERNATIONAL NORM RATIO 1.2 (0.9-1.1); Prothrombin Time 13.3 SEC (9.9-13.0)
[2021-09-11 13:04] LABS: Anion Gap 13 (12-20); Blood Urea Nitrogen 13 mg/dL (9-16); Calcium 9.5 mg/dL (8.4-10.2); Carbon Dioxide 26 mmol/L (22-29); Chloride 106 mmol/L (96-108); Estimated Glomerular Filt Rate 57; Glucose Random 86 mg/dL (60-115); Potassium 4.8 mmol/L (3.3-5.1); Sodium 140 mmol/L (135-145)
== END 2021-09-11 11:39 | disposition home or self-care (01) ==
LOC: HO.LAB 11:38
PROVIDERS: PCP Internal Medicine Medical Oncology; Visit Provider Internal Medicine
DX: I25.10 Atherosclerotic heart disease of native coronary artery without angina pectoris (principal)
CPT/HCPCS: 36415; 80048; 85025; 85610

== ENCOUNTER 2021-10-17 15:08 | Outpatient (REF) | payer MEDICARE, MEDICAID, SELFPAY ==
[2021-10-17 15:50] LABS: Blood Urea Nitrogen 20 mg/dL (9-16); Estimated Glomerular Filt Rate 49
== END 2021-10-17 15:09 | disposition home or self-care (01) ==
LOC: HO.LAB 15:08
PROVIDERS: PCP Internal Medicine Medical Oncology; Visit Provider Surgery Vascular Surgery
DX: I71.4 Abdominal aortic aneurysm, without rupture (principal)
CPT/HCPCS: 36415; 82565; 84520

== ENCOUNTER 2021-10-22 10:25 | Outpatient (REF) | payer MEDICARE, MEDICAID, SELFPAY ==
--- NOTE | ~2021-10-22 | CT_ITS ---
EXAMINATION: CT ANGIOGRAM ABDOMEN AND PELVIS CLINICAL INFORMATION: Abdominal aortic aneurysm COMPARISON: CT abdomen and pelvis 04/30/2021, 02/11/[address] angiogram of the abdomen and pelvis 08/27/2020. TECHNIQUE: Noncontrast timing run was performed. Multiple axial images were obtained obtained through the abdomen and pelvis following the administration of 226 mL of Omnipaque 350 intravenous contrast. Images were reviewed on a dedicated 3-D workstation. This CT examination was performed using dose optimization techniques as appropriate, variously including the following: *Automated exposure control *Adjustment of mA and/or kV according to patient size (this includes techniques or standardized protocols for targeted exams where dose is matched to indication/reason for exam; i.e. extremities or head) *Use of iterative reconstruction technique DLP: 226 mGy-cm VASCULAR FINDINGS: Visualized distal descending thoracic aorta shows atherosclerotic changes. An aortobi-iliac stent graft is present beginning at the level of the renal arteries. The left iliac limb is totally occluded. Both limbs end in the distal common iliac arteries. The celiac and SMA are patent. The MARSHAL is occluded. There are 2 renal arteries seen on the left with a single renal artery on the right. There is associated infarction with volume loss of a portion of the right kidney presumably secondary to occlusion of an accessory renal artery by the stent graft. Appearances are unchanged when compared to the prior. On the right, the iliac stent is patent. The internal iliac and external iliac arteries are patent. There is a small aneurysm involving the internal iliac artery measuring 9 mm which is unchanged from the prior (8:389 compare prior 6:422). The internal iliac artery is widely patent. The external iliac artery is widely patent. Common femoral artery is patent. The right SFA is occluded at its origin with runoff via only the profunda femoris. On the left, there is reconstitution of the iliac bifurcation. The internal iliac artery is patent. The external iliac artery is patent. The common femoral artery is patent. The visualized proximal portions of the profunda femoris and superficial femoral arteries are patent. NONVASCULAR FINDINGS: LUNG BASES: Emphysematous changes are present at the lung bases. A suspicious lung mass is not seen. No pleural effusions. LIVER, GALLBLADDER, AND BILIARY TREE: The liver is normal in size, shape, and attenuation. No focal hepatic lesion or biliary ductal dilatation is present. The gallbladder is unremarkable with no evidence of radiopaque gallstones, gallbladder wall thickening, or obvious pericholecystic inflammatory changes. PANCREAS: Unremarkable. SPLEEN: Unremarkable. ADRENAL GLANDS: Unremarkable. 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 The kidneys are otherwise normal in size, shape, and attenuation. No hydronephrosis, hydroureter, or calculi seen. No perinephric stranding. BLADDER: Unremarkable. GASTROINTESTINAL TRACT: A moderate-sized hiatal hernia is present The small and large bowel are unremarkable aside from extensive sigmoid diverticular disease without diverticulitis. The appendix is unremarkable. ABDOMINAL WALL: No significant hernia is appreciated. LYMPH NODES: Normal. VASCULAR: Unremarkable. PELVIC VISCERA: Unremarkable. OSSEOUS STRUCTURES: Mild degenerative changes present in the spine. No bony destructive lesions. CT/CT angio abdomen pelvis IMPRESSION: 1. Aortobiiliac stent graft with occluded left iliac limb with reconstituted iliac bifurcation as described above. 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 2. Nonvascular findings include emphysema, stable right renal infarct, moderate-sized hiatal hernia and sigmoid diverticulosis without diverticulitis Fleischner guidelines were followed.
--- NOTE | ~2021-10-22 | US_ITS ---
EXAMINATION: US EXTRACRANIAL CAROTID DUPLEX, BILATERAL CLINICAL INFORMATION: Right-sided endarterectomy COMPARISON: Carotid duplex on 07/30/2020 TECHNIQUE: Real-time ultrasound and Doppler techniques (integrating B-mode 2-D vascular images, Doppler spectral analysis and color-flow Doppler imaging) were utilized to interrogate the extracranial carotid arteries, the vertebral arteries and proximal subclavian arteries bilaterally. The degree of stenosis is determined by criteria similar to NASCET. FINDINGS: Right Side: 1. There is no significant atherosclerotic plaque seen in the bifurcation/proximal ICA region. 2. The common carotid artery PSV proximally is 82 cm/s and distally 131 cm/s. 3. The proximal internal carotid artery velocities are 123 cm/s systolic and 30 cm/s diastolic. 4. The proximal external carotid artery PSV is 108 cm/s. 5. The vertebral artery shows antegrade flow. 6. The subclavian artery waveforms are normal. Left Side: 1. There is calcified atherosclerotic plaque seen in the bifurcation/proximal ICA region. 2. The common carotid artery PSV proximally is 85 cm/s and distally 106 cm/s. 3. The proximal internal carotid artery velocities are 102 cm/s systolic and 35 cm/s diastolic. 4. The proximal external carotid artery PSV is 84 cm/s. 5. The vertebral artery shows antegrade flow. 6. The subclavian artery waveforms are normal. US/US carotid duplex BI IMPRESSION: 1. RIGHT: Normal right internal carotid artery without atherosclerotic plaque or hemodynamically significant stenosis. 2. LEFT: Minimal, non-hemodynamically significant stenosis of the proximal left internal carotid artery corresponding to a 0-49% stenosis by velocity criteria. 3. Improvement in severity of disease in the bilateral carotid arteries compared to 07/30/2020.
[2021-10-22] MEDS: iohexoL 350 MG/ML 100 ML INFUS..BTL IV (11:22)
== END 2021-10-22 10:26 | disposition home or self-care (01) ==
LOC: HO.US 10:25
PROVIDERS: PCP Internal Medicine Medical Oncology; Visit Provider Surgery Vascular Surgery
DX: I63.231 Cerebral infarction due to unspecified occlusion or stenosis of right carotid arteries (principal); I71.4 Abdominal aortic aneurysm, without rupture
CPT/HCPCS: 74174; 93880; Q9967

== ENCOUNTER → 2021-10-23 14:36 | Outpatient (BNVA) | payer MEDICARE, MEDICAID, SELFPAY | PROVIDERS: PCP Internal Medicine Medical Oncology; Referring Provider Internal Medicine Medical Oncology; Visit Provider Nurse Practitioner Family | DX: I25.10 Atherosclerotic heart disease of native coronary artery without angina pectoris (principal); I10 Essential (primary) hypertension; E78.5 Hyperlipidemia, unspecified; Z86.73 Personal history of transient ischemic attack (TIA), and cerebral infarction without residual deficits; Z79.02 Long term (current) use of antithrombotics/antiplatelets; Z79.01 Long term (current) use of anticoagulants; Z79.82 Long term (current) use of aspirin; Z79.899 Other long term (current) drug therapy; Z98.890 Other specified postprocedural states | CPT/HCPCS: Q3014 ==

== ENCOUNTER → 2021-12-09 15:06 | Outpatient (BNVA) | payer MEDICARE, MEDICAID, SELFPAY | PROVIDERS: PCP Internal Medicine Medical Oncology; Visit Provider Surgery Vascular Surgery | DX: I71.4 Abdominal aortic aneurysm, without rupture (principal); I63.231 Cerebral infarction due to unspecified occlusion or stenosis of right carotid arteries | CPT/HCPCS: 99212 ==

== ENCOUNTER 2021-12-15 14:52 | Outpatient (REF) | payer MEDICARE, MEDICAID, SELFPAY ==
[2021-12-24 10:31] LABS: Gliadin Deamidated IgA Ab <1.0 U/mL; Gliadin Deamidated IgG Ab <1.0 U/mL; Transglutaminase Ab IgG <1.0 U/mL; Transglutaminase IgA <1.0 U/mL
== END 2021-12-15 14:53 | disposition home or self-care (01) ==
LOC: HO.LAB 14:52
PROVIDERS: PCP Internal Medicine Medical Oncology; Visit Provider Nurse Practitioner
DX: K59.04 Chronic idiopathic constipation (principal); K30 Functional dyspepsia; K21.9 Gastro-esophageal reflux disease without esophagitis; R14.0 Abdominal distension (gaseous)
CPT/HCPCS: 36415; 86003; 86258; 86364; 99212

== ENCOUNTER → 2021-12-25 11:11 | Outpatient (BNVA) | payer MEDICARE, MEDICAID, SELFPAY | PROVIDERS: PCP Internal Medicine Medical Oncology; Referring Provider Internal Medicine Medical Oncology; Visit Provider Internal Medicine | DX: I25.10 Atherosclerotic heart disease of native coronary artery without angina pectoris (principal); I10 Essential (primary) hypertension; I71.4 Abdominal aortic aneurysm, without rupture; I63.231 Cerebral infarction due to unspecified occlusion or stenosis of right carotid arteries | CPT/HCPCS: 99212 ==

== ENCOUNTER → 2022-01-05 16:00 | Outpatient (BNVA) | payer MEDICARE, MEDICAID, SELFPAY | PROVIDERS: PCP Internal Medicine Medical Oncology; Visit Provider Nurse Practitioner | DX: K30 Functional dyspepsia (principal); K59.04 Chronic idiopathic constipation; K21.9 Gastro-esophageal reflux disease without esophagitis; R14.0 Abdominal distension (gaseous); Z79.899 Other long term (current) drug therapy | CPT/HCPCS: 99212 ==

== ENCOUNTER 2022-01-15 12:49 | Outpatient (REF) | payer MEDICARE, MEDICAID, SELFPAY ==
--- NOTE | ~2022-01-15 | MM_ITS ---
EXAMINATION: MM SCREENING DIGITAL BREAST TOMOSYNTHESIS, BILATERAL CLINICAL INFORMATION: Screening. Asymptomatic. The lifetime risk of breast cancer based on the Tyrer-Cuzick Model is 3%. COMPARISON: Mammography: 03/25/2016 TECHNIQUE: Digital breast tomosynthesis is performed in both the craniocaudal and mediolateral oblique views along with computer-aided detection (CAD). Synthesized 2D images are generated from the tomosynthesis. FINDINGS: There are scattered areas of fibroglandular density (ACR BI-RADS breast composition Category b). Breast tissue composition borders on predominantly fatty. Left breast has small benign nodule with associated bulky calcification posterior 3:00 position consistent with degenerating fibroadenoma. There is an intramammary node again seen posterior upper outer left breast. Neither breast shows architectural abnormality or abnormal calcifications. The axilla and skin contours are unremarkable. Right tomography demonstrates a questionable benign-appearing smooth 0.6 cm retroareolar nodule not seen with certainty on standard mammography. Patient will be recalled for additional imaging to further characterize. MM/MM tomosynthesis screening BI IMPRESSION: Right: Questionable retroareolar nodule under 1 cm not seen with certainty on prior mammography 2015. Left: No mammographic evidence of malignancy. ASSESSMENT: BI-RADS 0: Incomplete - Need Additional Imaging Evaluation RECOMMENDATION: 1. Additional views of the right breast (spot CC, spot ML). 2. Targeted ultrasound if warranted after review of the additional views. 3. Radiology department staff will contact the patient for additional imaging. This patient's information was entered into a reminder system with a target due date for their next mammogram.
== END 2022-01-15 12:50 | disposition home or self-care (01) ==
LOC: HO.MAMMO 12:49
PROVIDERS: Visit Provider Internal Medicine Medical Oncology
DX: Z12.31 Encounter for screening mammogram for malignant neoplasm of breast (principal)
CPT/HCPCS: 77063; 77067

== ENCOUNTER 2022-02-04 14:28 | Outpatient (REF) | payer MEDICARE, MEDICAID, SELFPAY ==
--- NOTE | ~2022-02-04 | US_ITS ---
EXAMINATION: MM DIAGNOSTIC DIGITAL BREAST TOMOSYNTHESIS, RIGHT US BREAST TARGETED, RIGHT CLINICAL INFORMATION: Retroareolar density. COMPARISON: Mammography: 01/15/2022 and studies dating back to 03/25/2016. TECHNIQUE: Digital breast tomosynthesis is performed. 2D images are generated from the tomosynthesis. The following views are obtained: Spot compression views in craniocaudal and 90 degree mediolateral views. Targeted right breast ultrasound. FINDINGS: MAMMOGRAM: There are scattered areas of fibroglandular density (ACR BI-RADS breast composition Category b). Additional views demonstrate persistence of an approximately 7 mm retroareolar density without spiculation or microcalcifications. ULTRASOUND: Targeted right breast ultrasound demonstrated a simple cyst with smooth back wall increased through sound transmission which is wider than it is tall without internal vascularity and measures approximately 6 x 3 mm in size. Results are discussed with the patient at time of visit. US/US breast RT limited IMPRESSION: No mammographic evidence of malignancy. Retroareolar density right breast corresponds to a simple cyst. ASSESSMENT: BI-RADS 2: Benign RECOMMENDATION: Routine annual mammography screening due in 12 months. This patient's information was entered into a reminder system with a target due date for their next mammogram.
--- NOTE | ~2022-02-04 | MM_ITS ---
EXAMINATION: MM DIAGNOSTIC DIGITAL BREAST TOMOSYNTHESIS, RIGHT US BREAST TARGETED, RIGHT CLINICAL INFORMATION: Retroareolar density. COMPARISON: Mammography: 01/15/2022 and studies dating back to 03/25/2016. TECHNIQUE: Digital breast tomosynthesis is performed. 2D images are generated from the tomosynthesis. The following views are obtained: Spot compression views in craniocaudal and 90 degree mediolateral views. Targeted right breast ultrasound. FINDINGS: MAMMOGRAM: There are scattered areas of fibroglandular density (ACR BI-RADS breast composition Category b). Additional views demonstrate persistence of an approximately 7 mm retroareolar density without spiculation or microcalcifications. ULTRASOUND: Targeted right breast ultrasound demonstrates a simple cyst with smooth back wall increased through sound transmission which is wider than it is tall without internal vascularity and measures approximately 6 x 3 mm in size. Results are discussed with the patient at time of visit. MM/MM tomosynthesis added views R IMPRESSION: No mammographic evidence of malignancy. Retroareolar density right breast corresponds to a simple cyst. ASSESSMENT: BI-RADS 2: Benign RECOMMENDATION: Routine annual mammography screening due in 12 months. This patient's information was entered into a reminder system with a target due date for their next mammogram.
== END 2022-02-04 14:29 | disposition home or self-care (01) ==
LOC: HO.MAMMO 14:28
PROVIDERS: PCP Internal Medicine Medical Oncology; Visit Provider Internal Medicine Medical Oncology
DX: R92.2 Inconclusive mammogram (principal)
CPT/HCPCS: 76642; 77061; 77065

== ENCOUNTER 2022-03-19 14:32 | Emergency (ER) | payer MEDICARE, MEDICAID, SELFPAY ==
--- NOTE | ~2022-03-19 | CT_ITS ---
EXAMINATION: CT HEAD AND CT CERVICAL SPINE WITHOUT CONTRAST. CLINICAL INFORMATION: Fall on helical wrist. COMPARISON: None TECHNIQUE: 5 minutes thin axial and reformatted 2 mm thin sagittal and coronal images of brain were obtained. Subsequently axial 3 mm thin and reformatted 2 mm thin sagittal and coronal images of cervical spine were obtained. FINDINGS: Brain: There is no acute intra-axial, extra-axial bleed, masses or midline shift. There is a right watershed area hypodensity likely old infarct. No acute infarct in evolution seen. The lateral ventricles are symmetrical in size and configuration without enlargement. There is a mild periarticular hypodensity without chronic small vessel ischemic changes. Bone windows reveal no calvarial abnormality. No scalp soft tissue abnormality either. The paranasal sinuses and mastoid air cells are well aerated. Cervical spine: On sagittal reconstructed images is mild straightening of cervical lordosis. The vertebral heights are normal. There is grade 1 and 2 retrolisthesis C3 over C4 and C4-C5 there is loss of C3-C4, C4-C5 and C5-C6 disc heights. The craniovertebral junction and C1-C2 alignment is normal. Fracture, dislocation or subluxation seen. The paravertebral soft tissues are normal. The airways widely patent. The lung apices are clear. CT/CT cervical spine wo IV con IMPRESSION: No acute intracranial process seen. Degenerative disc changes cervical spine without any visible acute fracture or dislocation.
--- NOTE | ~2022-03-19 | XR_ITS ---
EXAMINATION: XR FOOT, LEFT CLINICAL INFORMATION: Pain COMPARISON: Left foot radiographs 01/31/2016 TECHNIQUE: AP, lateral, and oblique views of the left foot. FINDINGS: Essentially nondisplaced transverse fracture through the base of the first proximal phalanx with slight cortical step-off. No appreciable intra-articular extension. Severe hallux valgus deformity and bunion formation. Lateral subluxation of hallux sesamoids. 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 Lisfranc alignment is maintained. Remainder of the joint spaces are preserved. Large plantar calcaneal spur. XR/XR foot LT 2V IMPRESSION: 1. Essentially nondisplaced transverse extra-articular fracture of the base of the first proximal phalanx. 2. 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
--- NOTE | ~2022-03-19 | CT_ITS ---
EXAMINATION: CT HEAD AND CT CERVICAL SPINE WITHOUT CONTRAST. CLINICAL INFORMATION: Fall on helical wrist. COMPARISON: None TECHNIQUE: 5 minutes thin axial and reformatted 2 mm thin sagittal and coronal images of brain were obtained. Subsequently axial 3 mm thin and reformatted 2 mm thin sagittal and coronal images of cervical spine were obtained. FINDINGS: Brain: There is no acute intra-axial, extra-axial bleed, masses or midline shift. There is a right watershed area hypodensity likely old infarct. No acute infarct in evolution seen. The lateral ventricles are symmetrical in size and configuration without enlargement. There is a mild periarticular hypodensity without chronic small vessel ischemic changes. Bone windows reveal no calvarial abnormality. No scalp soft tissue abnormality either. The paranasal sinuses and mastoid air cells are well aerated. Cervical spine: On sagittal reconstructed images is mild straightening of cervical lordosis. The vertebral heights are normal. There is grade 1 and 2 retrolisthesis C3 over C4 and C4-C5 there is loss of C3-C4, C4-C5 and C5-C6 disc heights. The craniovertebral junction and C1-C2 alignment is normal. Fracture, dislocation or subluxation seen. The paravertebral soft tissues are normal. The airways widely patent. The lung apices are clear. CT/CT head/brain wo IV con IMPRESSION: No acute intracranial process seen. Degenerative disc changes cervical spine without any visible acute fracture or dislocation.
[2022-03-19 15:23] VITALS: BP 145/70; PULSE 86; RESP 16; TEMP 36.6; O2SAT 97; BMI 23.0
--- NOTE | 2022-03-19 15:28 | ECG_ITS ---
Test Reason : fall Blood Pressure : / mmHG Vent. Rate : 081 BPM Atrial Rate : 081 BPM P-R Int : 128 ms QRS Dur : 072 ms QT Int : 378 ms P-R-T Axes : 067 033 019 degrees QTc Int : 439 ms Sinus rhythm with marked sinus arrhythmia with occasional Premature ventricular complexes Cannot rule out Anterior infarct (cited on or before 19-MAR-2022) Abnormal ECG When compared with ECG of 07-MAY-2021 09:05, Premature ventricular complexes are now Present Aberrant conduction is no longer Present Nonspecific T wave abnormality now evident in Anterior leads Nonspecific T wave abnormality no longer evident in Lateral leads Referred By: Niesha Perez Electronically Signed By:ANDREA RUTHERFORD
[2022-03-19 15:53] LABS: MANUAL DIFF FLAG NO
[2022-03-19 16:03] LABS: Basophils Percent Auto 0.5 % (0-2); Eosinophils Absolute Auto 0.2 X10*3/uL (0.0-0.4); Eosinophils Percent Auto 2.8 % (0-4); Hematocrit 40.3 % (37.0-47.0); Hemoglobin 12.9 g/dl (12.0-16.0); Imm Gran Abs Auto 0.02 X10*3/uL (0.00-0.03); Imm Gran Pct Auto 0.3 % (0.0-0.4); Lymphocytes Absolute Auto 1.6 X10*3/uL (1.2-4.9); Lymphocytes Percent Auto 25.7 % (20-40); Mean Corpuscular Hemoglobin 28.5 pg (27.0-33.0); Mean Platelet Volume 11.8 fL (9.4-12.3); Monocytes Absolute Auto 0.5 X10*3/uL (0.1-1.2); Monocytes Percent Auto 8.7 % (2-11); Neutrophils Absolute Auto 3.8 x10*3/uL (2.0-8.3); Platelet Count 192 X10*3/uL (160-400); Red Blood Count 4.53 X10*6/uL (4.20-5.50); Red Cell Distribution Width 14.2 % (11.0-16.0); White Blood Count 6.1 X10*3/uL (4.8-10.8)
[2022-03-19 16:08] LABS: Anion Gap 14 (12-20); Blood Urea Nitrogen 14 mg/dL (9-16); Calcium 9.2 mg/dL (8.4-10.2); Carbon Dioxide 28 mmol/L (22-29); Chloride 105 mmol/L (96-108); Creatinine Clr Calc Pharmacy 39.7; Estimated Glomerular Filt Rate 52; Glucose Random 100 mg/dL (60-115); Potassium 4.4 mmol/L (3.3-5.1); Sodium 143 mmol/L (135-145)
--- NOTE | 2022-03-19 22:32 | ED_ITS ---
HPI - Fall General Chief Complaint: Fall Stated Complaint: FELL LEG INJ KNEE Time Seen by Provider: 03/19/22 21:39 Source: patient Mode of arrival: ambulatory Limitations: no limitations History of Present Illness HPI Narrative: 76-year-old female with a PMHx of CAD, HTN, AAA, DVT, CVA, and COPD presents s/p mechanical fall with left foot injury. The patient reports that she was taking her dog out today when she got her cane caught on something and fell forward, striking her head and injuring her foot. Currently, she reports a dull headache and pain in her left foot. She states that her first 3 toes on that foot are deformed and notes pain to the area. The patient tells me that she felt dizzy briefly for about 10 minutes after the fall but then returned to her baseline. She denies any dizziness, chest pain, shortness of breath, or symptoms preceding the fall. Currently, she denies any chest pain, shortness of breath, abdominal pain, or any other complaints. Patient is anticoagulated on Eliquis but tells me that she is no longer taking Plavix. Related Data Home Medications Medication Instructions Recorded Confirmed atorvastatin 80 mg tablet 80 mg PO DAILY 04/18/20 12/25/21 lisinopril 40 mg tablet 40 mg PO DAILY 04/29/21 12/25/21 clopidogrel 75 mg tablet 75 mg PO DAILY 10/23/21 12/25/21 Previous Rx's Medication Instructions Recorded albuterol sulfate 90 mcg/actuation 1 inh inhalation QID PRN shortness 08/16/20 aerosol inhaler of breath or wheezing #8.5 grams isosorbide mononitrate 60 mg 60 mg PO DAILY #90 tabs 04/29/21 tablet,extended release 24 hr apixaban 5 mg tablet (Eliquis) 5 mg PO BID #60 tabs 11/17/21 metoclopramide HCl 10 mg tablet 10 mg PO .tidac #90 tabs 12/15/21 (Reglan) omeprazole 20 mg capsule,delayed 20 mg PO BID 30 days #60 caps 12/15/21 release [id number] 1 cap PO TID #90 caps 01/26/22 24,000-76,000-120,000 unit capsule,delayed rel (Creon) Allergies Allergy/AdvReac Type Severity Reaction Status Date / Time No Known Allergies Allergy Verified 01/05/22 16:16 Review of Systems Review of Systems: Constitutional : No Weight loss, No Fever, No Chills, No Fatigue, No Malaise ENT/Mouth : No sore throat, No Rhinorrhea Eyes: No Eye Pain, No Swelling, No Redness Cardiovascular : No Chest Pain, No SOB, No Dyspnea on Exertion, No Orthopnea, No Edema, No Palpitations Respiratory : No Cough, No Sputum, No Wheezing Gastrointestinal : No Nausea, No Vomiting, No Diarrhea, No Constipation, No abdominal Pain, No Hematochezia, No Melena Genitourinary : No Dysuria, No Urinary Frequency, No Hematuria, Musculoskeletal : +left foot pain and deformity Skin : No Skin Lesions, No rash Neuro : No Weakness, No Numbness, No Dizziness, No Headache, No changes in sensation Psych : No Anxiety/Panic, No Depression All other systems reviewed and are negative Yes all other systems are reviewed and are negative PMFSH Past Medical History Medical History Emphysema lung Hernia History of pyloric channel ulcer Hydroureter, right Mild acid reflux Pernicious anemia Psoriasis Surgical History History of AAA (abdominal aortic aneurysm) repair Hx of shoulder surgery Hx of varicose vein stripping Family History Family History Father No problems noted. Mother No problems noted. Sister No problems noted. Sister No problems noted. Sister No problems noted. Sister No problems noted. Sister Cancer Son No problems noted. Social History Social History Alcohol intake: never Patient Tobacco Use Status: Former Tobacco user Quit Date: 2019 Tobacco use type: Cigarette Cigarette Packs Per Day: 4 Cigarettes Per Day: 80.0 Years Smoked: 65 Advance Directives: Yes Advance Directives on File: Yes Advance Directives Date on File: 06/11/21 Physical Exam Vital Signs: Vital Signs: Last Vital Signs Temp 97.9 F 03/19/22 15:23 Pulse 86 03/19/22 15:23 Resp 16 03/19/22 15:23 BP 145/70 H 03/19/22 15:23 Pulse Ox 97 03/19/22 15:23 O2 Del Method 03/19/22 15:23 BMI result Body Mass Index 23.0 vss Appearance: Alert.? Oriented X3.? No acute distress.? Head: Normocephalic, atraumatic, no step-offs or deformities Eyes: Pupils equal, round and reactive to light.? Neck: Normal inspection.? Neck supple.? CVS: Normal heart rate and rhythm.? Pulses normal.? Respiratory: No respiratory distress.? Breath sounds normal.? Abdomen: Soft and nontender.? Skin: Skin warm and dry.? Normal skin color.? Normal skin turgor.? Extremities: No lower extremity edema.? No calf ttp. 5/5 strength to bilateral upper and lower extremities though limited ROM of the toes of the left foot due to pain. Deformity with overlying swelling of the left first MTP joint. Unable to move first 3 toes on the left foot secondary to pain. 2+ DP and PT pulses. Back: No midline tenderness, no C-spine tenderness, full range of motion, no CVA tenderness bilaterally. Normal sensation throughout. No paresthesias. Neuro: Oriented X 3.? No motor deficit.? No sensory deficit. Course Reevaluation(s) Reevaluation #1: CBC and chemistry within normal limits. Coags appear to be at pts baseline. X- ray of patient's foot reveals 1. Essentially nondisplaced transverse extra-articular fracture of the base of the first proximal phalanx.2. 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 Trop,CT head and c-spine pending. Time: 22:45 Reevaluation #2: No acute intracranial process noted, no signs of intracranial hemorrhage. Neuro exam nonfocal, patient ambulating with steady gait. Degenerative disc changes noted in the cervical spine however no visible acute fracture or dislocation. At this time pending troponin I suspect patient will be discharged home. Time: 23:32 Reevaluation #3: Troponin negative, EKG nonischemic. At this time patient will be discharged home, denying chest pain, shortness of breath. Ambulating with steady gait with postop shoe. Advised to return with new or worsening symptoms. At this time I feel comfortable discharge. Time: 00:24 MDM - Fall MDM Narrative Medical decision making narrative: 20:30 76-year-old female presenting s/p mechanical fall. No preceding symptoms. Currently on Eliquis. PE remarkable for left foot deformity. No neurologic deficits. Patient alert and oriented, GCS 15, NIH 0 Plan to obtain basic labs, CT head and C-spine, foot x-ray. Suspect mechanical fall, unlikely syncopal episode or seizure, will rule out electrolyte derangement. Unlikely ICH, stroke, or c-spine fracture or disclocation based on pts exam. Lab Data Result diagrams: 03/19/22 15:40 03/19/22 15:40 Labs: Lab Results 03/19/22 03/19/22 03/19/22 Range/Units 15:40 15:40 23:51 WBC 6.1 (4.8-10.8) X10*3/uL RBC 4.53 (4.20-5.50) X10*6/uL Hgb 12.9 (12.0-16.0) g/dl Hct 40.3 (37.0-47.0) % MCV 89.0 (80.0-98.0) fL MCH 28.5 (27.0-33.0) pg MCHC 32.0 (31.0-35.0) g/dl RDW 14.2 (11.0-16.0) % Plt Count 192 (160-400) X10*3/uL MPV 11.8 (9.4-12.3) fL Immature Gran % (Auto) 0.3 (0.0-0.4) % Neut % (Auto) 62.0 (45-73) % Lymph % (Auto) 25.7 (20-40) % [place] % (Auto) 8.7 (2-11) % Eos % (Auto) 2.8 (0-4) % Baso % (Auto) 0.5 (0-2) % Lymph # (Auto) 1.6 (1.2-4.9) X10*3/uL [place] # (Auto) 0.5 (0.1-1.2) X10*3/uL Eos # (Auto) 0.2 (0.0-0.4) X10*3/uL Baso # (Auto) 0.0 (0.0-0.2) X10*3/uL Abs Immat Gran (auto) 0.02 (0.00-0.03) X10*3/uL Absolute Neuts (auto) 3.8 (2.0-8.3) x10*3/uL Absolute Nucleated RBC 0.000 (0.0-0.012) X10*3/uL Nucleated RBC % (auto) 0.0 (0.0-0.2) /100WBC Sodium 143 (135-145) mmol/L Potassium 4.4 (3.3-5.1) mmol/L Chloride 105 (96-108) mmol/L Carbon Dioxide 28 (22-29) mmol/L Anion Gap 14 (12-20) BUN 14 (9-16) mg/dL Creatinine 1.04 (0.5-1.4) mg/dL Estim Creat Clear Calc 39.7 Estimated GFR 52 Random Glucose 100 (60-115) mg/dL Calcium 9.2 (8.4-10.2) mg/dL Troponin I High Sens < 3.5 (<3.5-17.0) ng/L Discharge Plan Discharge Clinical Impression: Fall, Concussion, Fracture, phalanx, foot, Concussion without loss of consciousness Patient Disposition: Home, Self-Care Instructions: Foot Fracture in Adults (ED), Concussion (ED), Post Concussion Syndrome (ED), R.I.C.E. Treatment (ED), Fall Prevention (ED), Post Surgical Shoe (ED) Additional Instructions: Take your medications as prescribed. If you were prescribed antibiotics today, it is important that you take your medication to their entirety, do not skip any doses, do not finish them early. Follow-up with your primary care provider this week. Follow-up with Orthopedic if symptoms persist. Return to the emergency department with new or worsening symptoms. Such as fevers, chills, chest pain, shortness of breath, nausea, vomiting, dizziness, headache, vision changes, altered mental status, seizure-like activity, , lethargy In case of emergency call 911 Please limit screen time. Refrain from physical activities for 2-3 weeks or until medically cleared. Take Tylenol as necessary for pain. XR/XR foot LT 2V IMPRESSION: 1. Essentially nondisplaced transverse extra-articular fracture of the base of the first proximal phalanx. 2. 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 Prescriptions: No Action Eliquis 5 mg tablet 5 mg PO BID Qty: 60 3RF Creon 24,000-76,000 -120,000 unit capsule,delayed release(DR/EC) 1 cap PO TID Qty: 90 3RF albuterol sulfate 90 mcg/actuation HFA aerosol inhaler 1 inh inhalation QID PRN (Reason: shortness of breath or wheezing) Qty: 8.5 0RF atorvastatin 80 mg tablet 80 mg PO DAILY lisinopril 40 mg tablet 40 mg PO DAILY isosorbide mononitrate 60 mg tablet extended release 24 hr 60 mg PO DAILY Qty: 90 4RF omeprazole 20 mg capsule,delayed release(DR/EC) 20 mg PO BID 30 Days Qty: 60 6RF metoclopramide HCl [Reglan] 10 mg tablet 10 mg PO .tidac Qty: 90 6RF clopidogrel 75 mg tablet 75 mg PO DAILY Referrals: [facility] [Provider Group] - 2 weeks Wallace Roldan MD [Primary Care Provider] - 2 days Stand Alone Forms: Work/School Release
--- NOTE | 2022-03-19 23:37 | PC.NURSE ---
post op boot placed on patient L foot
[2022-03-20 00:19] LABS: Troponin-I High Sensitivity < 3.5 ng/L (<3.5-17.0)
[2022-03-20] MEDS: Acetaminophen 325 MG TABLET 650 MG PO (00:47)
== END 2022-03-20 01:03 | disposition home or self-care (01) ==
PROVIDERS: Emergency Medicine; Physician Assistant; Emergency Provider Internal Medicine; PCP Internal Medicine Medical Oncology
DX: S06.0X0A Concussion without loss of consciousness, initial encounter (principal); S92.912A Unspecified fracture of left toe(s), initial encounter for closed fracture; R42 Dizziness and giddiness; R51.9 Headache, unspecified; M54.2 Cervicalgia; W01.0XXA Fall on same level from slipping, tripping and stumbling without subsequent striking against object, initial encounter; Y93.9 Activity, unspecified; Y92.009 Unspecified place in unspecified non-institutional (private) residence as the place of occurrence of the external cause; Y99.9 Unspecified external cause status; Z79.899 Other long term (current) drug therapy; Z79.01 Long term (current) use of anticoagulants; Z87.891 Personal history of nicotine dependence
CPT/HCPCS: 36415; 70450; 72125; 73620; 80048; 84484; 85025; 93005; 99283; 99284

== ENCOUNTER 2022-04-03 07:53 | Outpatient (REF) | payer MEDICARE, MEDICAID, SELFPAY ==
[2022-04-03 08:06] LABS: MANUAL DIFF FLAG NO
[2022-04-03 08:21] LABS: Basophils Percent Auto 0.5 % (0-2); Eosinophils Absolute Auto 0.1 X10*3/uL (0.0-0.4); Eosinophils Percent Auto 2.2 % (0-4); Hematocrit 41.6 % (37.0-47.0); Hemoglobin 13.4 g/dl (12.0-16.0); Imm Gran Abs Auto 0.02 X10*3/uL (0.00-0.03); Imm Gran Pct Auto 0.3 % (0.0-0.4); Lymphocytes Absolute Auto 0.4 X10*3/uL (1.2-4.9); Lymphocytes Percent Auto 6.6 % (20-40); Mean Corpuscular HGB Conc 32.2 g/dl (31.0-35.0); Mean Corpuscular Hemoglobin 28.8 pg (27.0-33.0); Mean Corpuscular Volume 89.3 fL (80.0-98.0); Mean Platelet Volume 11.4 fL (9.4-12.3); Monocytes Absolute Auto 0.4 X10*3/uL (0.1-1.2); Monocytes Percent Auto 6.3 % (2-11); Neutrophils Absolute Auto 5.3 x10*3/uL (2.0-8.3); Neutrophils Percent Auto 84.1 % (45-73); Platelet Count 161 X10*3/uL (160-400); Red Blood Count 4.66 X10*6/uL (4.20-5.50); Red Cell Distribution Width 14.4 % (11.0-16.0); White Blood Count 6.3 X10*3/uL (4.8-10.8)
[2022-04-03 08:51] LABS: Alanine Aminotransferase 9 U/L (0-31); Albumin Level 4.1 g/dL (3.5-5.0); Alkaline Phosphatase 118 U/L (39-117); Anion Gap 15 (12-20); Aspartate Amino Transferase 16 U/L (5-31); Bilirubin Total 0.6 mg/dL (0.0-1.0); Blood Urea Nitrogen 14 mg/dL (9-16); Calcium 9.4 mg/dL (8.4-10.2); Carbon Dioxide 27 mmol/L (22-29); Chloride 106 mmol/L (96-108); Cholesterol 154 mg/dL; Estimated Glomerular Filt Rate 52; Glucose Fasting 95 mg/dL (60-99); HDL Cholesterol 53 mg/dL; LDL Cholesterol Calculated 85 mg/dl; Sodium 144 mmol/L (135-145); Triglycerides 80 mg/dL
== END 2022-04-03 07:54 | disposition home or self-care (01) ==
LOC: HO.LAB 07:53
PROVIDERS: PCP Internal Medicine Medical Oncology; Visit Provider Internal Medicine Medical Oncology
DX: D50.9 Iron deficiency anemia, unspecified (principal); Z86.39 Personal history of other endocrine, nutritional and metabolic disease
CPT/HCPCS: 36415; 80053; 80061; 85025

== ENCOUNTER 2022-04-08 09:51 | Emergency (ER) | payer MEDICARE, MEDICAID, SELFPAY ==
--- NOTE | ~2022-04-08 | CT_ITS ---
EXAMINATION: CT ABDOMEN AND PELVIS WITHOUT CONTRAST CLINICAL INFORMATION: Diarrhea x9 days and Covid COMPARISON: Multiple prior CT scans of the abdomen and pelvis the most recent of which was 10/22/2021 TECHNIQUE: Multidetector volumetric imaging was performed from the superior aspect of the liver through the pubic symphysis. Sagittal and coronal reformatted images were obtained on the technologist's workstation. This CT examination was performed using dose optimization techniques as appropriate, variously including the following: *Automated exposure control *Adjustment of mA and/or kV according to patient size (this includes techniques or standardized protocols for targeted exams where dose is matched to indication/reason for exam; i.e. extremities or head) *Use of iterative reconstruction technique DLP: 410 mGy-cm FINDINGS: LUNG BASES: Emphysematous changes are present at the lung bases. No suspicious mass, groundglass infiltrates or pleural effusion is seen. Heart size is normal. LIVER, GALLBLADDER, AND BILIARY TREE: The liver is normal in size, shape, and attenuation. No focal hepatic lesion or biliary ductal dilatation is present. The gallbladder is unremarkable with no evidence of radiopaque gallstones, gallbladder wall thickening, or obvious pericholecystic inflammatory changes. PANCREAS: Unremarkable. SPLEEN: Unremarkable. ADRENAL GLANDS: Unremarkable. KIDNEYS AND URETERS: There is partial infarction of a portion of the right kidney, better seen on prior contrast enhanced CT scans. This finding is stable. No hydronephrosis, nephrolithiasis or renal masses are seen. BLADDER: Empty and cannot be evaluated GASTROINTESTINAL TRACT: A moderate-sized hiatal hernia is present. Diverticular changes are present in the colon most prominent rectosigmoid. No evidence of diverticulitis. The small and large bowel are otherwise unremarkable. The appendix is unremarkable. ABDOMINAL WALL: No significant hernia is appreciated. LYMPH NODES: Normal. VASCULAR: An aortobiiliac stent graft is again seen. Sac size is stable. PELVIC VISCERA: Unremarkable. OSSEOUS STRUCTURES: Unremarkable. CT/CT abdomen pelvis wo IV con IMPRESSION: No pertinent abnormality is seen to account for the patient's diarrhea. Incidental note made again of pulmonary emphysema, partial infarction the right kidney, hiatal hernia, extensive colonic sigmoid diverticulosis and an aortobiiliac stent graft. Fleischner guidelines were followed.
[2022-04-08 11:01] VITALS: BP 97/52; PULSE 86; RESP 16; TEMP 36.3; O2SAT 93; BMI 22.1
[2022-04-08 11:21] LABS: MANUAL DIFF FLAG NO
[2022-04-08 11:22] LABS: Basophils Percent Auto 0.2 % (0-2); Eosinophils Percent Auto 0.8 % (0-4); Hematocrit 38.1 % (37.0-47.0); Hemoglobin 12.4 g/dl (12.0-16.0); Imm Gran Abs Auto 0.01 X10*3/uL (0.00-0.03); Imm Gran Pct Auto 0.2 % (0.0-0.4); Lymphocytes Absolute Auto 1.2 X10*3/uL (1.2-4.9); Lymphocytes Percent Auto 23.6 % (20-40); Mean Corpuscular HGB Conc 32.5 g/dl (31.0-35.0); Mean Corpuscular Hemoglobin 29.2 pg (27.0-33.0); Mean Corpuscular Volume 89.6 fL (80.0-98.0); Mean Platelet Volume 11.8 fL (9.4-12.3); Monocytes Absolute Auto 0.4 X10*3/uL (0.1-1.2); Monocytes Percent Auto 8.2 % (2-11); Neutrophils Absolute Auto 3.4 x10*3/uL (2.0-8.3); Platelet Count 173 X10*3/uL (160-400); Red Blood Count 4.25 X10*6/uL (4.20-5.50); Red Cell Distribution Width 14.6 % (11.0-16.0)
[2022-04-08 11:31] LABS: IDNOW Serial# 9DD0AD1C
[2022-04-08 11:32] LABS: COVID-19 Test Positive (Negative)
[2022-04-08 11:35] LABS: Anion Gap 17 (12-20); Blood Urea Nitrogen 31 mg/dL (9-16); Calcium 8.6 mg/dL (8.4-10.2); Carbon Dioxide 22 mmol/L (22-29); Chloride 107 mmol/L (96-108); Creatinine Clr Calc Pharmacy 33.8; Estimated Glomerular Filt Rate 43; Glucose Random 105 mg/dL (60-115); Potassium 4.1 mmol/L (3.3-5.1); Sodium 142 mmol/L (135-145)
[2022-04-08 13:10] LABS: Lipase 17 U/L (8-78)
--- NOTE | 2022-04-08 17:07 | ED_ITS ---
HPI - Nausea/Vomiting/Diarrhea General Chief complaint: Nausea/Vomiting/Diarrhea Stated complaint: nauseous, diarraher Time Seen by Provider: 04/08/22 11:19 Source: patient and family Mode of arrival: ambulatory Limitations: no limitations History of Present Illness HPI Narrative: 76 year old female with a PMHx of CAD, HTN, AAA, DVT, CVA, and COPD presenting for diarrhea for the past 8 days. Patient reports having a fever around 100.0, a decrease in appetite and a decrease in fluid intake. Patient started imodium 2 days ago, and reports no bowel movements in the past 2 days. Patient denies abdominal pain, nausea, and vomiting. No recent abx use, no sick contacts, denies food poisoning exposure. She denies other the similar symptoms. She denies recent travel she denies any other symptoms complaints or concerns at this time. MD elicited complaint: diarrhea Pertinent past history: anorexia Onset (ago): day(s) (8) Description of diarrhea: semi-solid and loose Associated nausea: No Associated abdominal pain: No Location of pain: none Associated symptoms: denies other symptoms Treatment prior to arrival: immodium Related Data Home Medications Medication Instructions Recorded Confirmed atorvastatin 80 mg tablet 80 mg PO DAILY 04/18/20 12/25/21 lisinopril 40 mg tablet 40 mg PO DAILY 04/29/21 12/25/21 clopidogrel 75 mg tablet 75 mg PO DAILY 10/23/21 12/25/21 Previous Rx's Medication Instructions Recorded albuterol sulfate 90 mcg/actuation 1 inh inhalation QID PRN shortness 08/16/20 aerosol inhaler of breath or wheezing #8.5 grams isosorbide mononitrate 60 mg 60 mg PO DAILY #90 tabs 04/29/21 tablet,extended release 24 hr apixaban 5 mg tablet (Eliquis) 5 mg PO BID #60 tabs 11/17/21 metoclopramide HCl 10 mg tablet 10 mg PO .tidac #90 tabs 12/15/21 (Reglan) omeprazole 20 mg capsule,delayed 20 mg PO BID 30 days #60 caps 12/15/21 release [id number] 1 cap PO TID #90 caps 01/26/22 24,000-76,000-120,000 unit capsule,delayed rel (Creon) ondansetron 4 mg disintegrating 4 mg PO Q8H nausea/vomiting #14 04/08/22 tablet tabs Allergies Allergy/AdvReac Type Severity Reaction Status Date / Time No Known Allergies Allergy Verified 01/05/22 16:16 Review of Systems Review of Systems: Constitutional : + Fever, + Chills, No Night Sweats, + Fatigue Cardiovascular : No Chest Pain, No SOB Respiratory : No Cough, No Sputum, No Wheezing, No Dyspnea Gastrointestinal : No Nausea, No Vomiting, + Diarrhea, No abdominal Pain, No Hematochezia, No Melena Genitourinary : No Dysuria, No Urinary Frequency, No Hematuria,No Urinary Incontinence, No Urgency, No Flank Pain Musculoskeletal : No joint pain, No Myalgias, Skin : No Skin Lesions, No rash Neuro : No Weakness, No Numbness, No Paresthesias, No Loss of Consciousness, No Dizziness, No Headache Heme/Lymph: No Lymphadenopathy Endocrine : No Temperature Intolerance Yes all other systems are reviewed and are negative Gastrointestinal: Gastrointestinal: Denies nausea PMFSH Past Medical History Attestation statement: The following information was validated with the patient. Source: old records reviewed, obtained from family and nursing notes reviewed Medical History Asthma COPD (chronic obstructive pulmonary disease) CVA (cerebral vascular accident) Dyspnea Emphysema lung Emphysema of lung Essential hypertension Glaucoma Hernia History of pyloric channel ulcer Hydroureter, right Mild acid reflux Pernicious anemia Psoriasis Tachycardia Surgical History H/O carotid endarterectomy (04/01/20) History of AAA (abdominal aortic aneurysm) repair Hx of shoulder surgery Hx of varicose vein stripping Family History Family History Father No problems noted. Mother No problems noted. Sister No problems noted. Sister No problems noted. Sister No problems noted. Sister No problems noted. Sister Cancer Son No problems noted. Social History Social History Alcohol intake: never Patient Tobacco Use Status: Former Tobacco user Quit Date: 2019 Tobacco use type: Cigarette Cigarette Packs Per Day: 4 Cigarettes Per Day: 80.0 Years Smoked: 65 Advance Directives: Yes Advance Directives on File: Yes Advance Directives Date on File: 06/11/21 Physical Exam Vital Signs: Vital Signs: Last Vital Signs Temp 97.3 F 04/08/22 11:01 Pulse 75 04/08/22 19:20 Resp 18 04/08/22 19:20 BP 137/69 04/08/22 19:20 Pulse Ox 93 04/08/22 11:01 O2 Del Method 04/08/22 19:20 O2 Flow Rate 94 04/08/22 19:20 BMI result Body Mass Index 22.1 vital signs have been reviewed as normal and appeared to be correct. Blood pressure normal Heart rate normal. Respiration rate normal. Temperature normal. Oxygen saturation normal. Appearance: Alert. Oriented X3. No acute distress. Head: Normal external exam. Normocephalic. Eyes: PERRLA. EOMI. Conjunctiva and sclera normal. Eyelids normal. ENT: Pharynx normal. Uvula midline. Dry mucous membranes. No trismus noted. No drooling noted. No muffled voice noted. Neck: Normal inspection. Neck supple. FROM. No adenopathy. No meningeal signs. CVS: Normal heart rate and rhythm. Heart sound normal. No murmurs noted. Pulses normal throughout. Respiratory: No respiratory distress. Painless inspiration. Breath sounds normal. No wheezes/rales/rhonchi noted. Chest nontender. No accessory muscle usage noted or decreased air movement noted. Abdomen: Soft and nontender. Nondistended. No guarding. No rigidity. Bowel sounds normal in all 4 quadrants. No distention noted. No organomegaly noted. No visible injury noted. No rebound tenderness. Negative Rovsing sign. Negative obturator's sign. Negative psoas sign. Negative Funes sign. Back: No CVA tenderness. Full range of motion noted. Skin: Skin warm and dry. Normal skin color. Normal skin turgor. No rashes/lesions/lacerations noted. Extremities: Extremities exhibit normal range of motion. Extremities nontender. Neuro: Oriented X 3. No motor deficit. No sensory deficit. Reflexes normal. Normal steady gait. CN's II-XII intact bilaterally? Course Course Course Narrative: 5pm -76 year old female with a PMHx of CAD, HTN, AAA, DVT, CVA, and COPD presenting for diarrhea for the past 8 days. Patient reports having a fever around 100.0, a decrease in appetite and a decrease in fluid intake. Patient started imodium 2 days ago, and reports no bowel movements in the past 2 days. Patient denies abdominal pain, nausea, and vomiting. No recent abx use, no sick contacts, denies food poisoning exposure. Reevaluation(s) Reevaluation #1: IV accesses obtained, IV fluids started. Time: 19:00 Reevaluation #2: - labs reviewed and patient is BUN 31. Otherwise all other labs are within normal limits. Patient positive for COVID. CT scan abdomen pelvis revealed chronic changes no acute processes noted. Therefore at this time patient is tolerating p.o. fluids/solids she did receive fluids through the IV reports she is feeling much better. Will DC home with symptomatic treatment instructions return if any new or worsening symptoms follow up with primary care provider. Patient understands agrees with this plan. Time: 20:29 [facility] - Nausea/Vomiting/Diarrhea Medical Records Attestation: I reviewed the patient's medical records. Lab Data Attestation: I reviewed the patient's lab results. Result diagrams: 04/08/22 11:10 04/08/22 11:10 Labs: Lab Results 04/08/22 04/08/22 04/08/22 Range/Units 11:06 11:10 11:10 WBC 5.0 (4.8-10.8) X10*3/uL RBC 4.25 (4.20-5.50) X10*6/uL Hgb 12.4 (12.0-16.0) g/dl Hct 38.1 (37.0-47.0) % MCV 89.6 (80.0-98.0) fL MCH 29.2 (27.0-33.0) pg MCHC 32.5 (31.0-35.0) g/dl RDW 14.6 (11.0-16.0) % Plt Count 173 (160-400) X10*3/uL MPV 11.8 (9.4-12.3) fL Immature Gran % (Auto) 0.2 (0.0-0.4) % Neut % (Auto) 67.0 (45-73) % Lymph % (Auto) 23.6 (20-40) % [place] % (Auto) 8.2 (2-11) % Eos % (Auto) 0.8 (0-4) % Baso % (Auto) 0.2 (0-2) % Lymph # (Auto) 1.2 (1.2-4.9) X10*3/uL [place] # (Auto) 0.4 (0.1-1.2) X10*3/uL Eos # (Auto) 0.0 (0.0-0.4) X10*3/uL Baso # (Auto) 0.0 (0.0-0.2) X10*3/uL Abs Immat Gran (auto) 0.01 (0.00-0.03) X10*3/uL Absolute Neuts (auto) 3.4 (2.0-8.3) x10*3/uL Absolute Nucleated RBC 0.000 (0.0-0.012) X10*3/uL Nucleated RBC % (auto) 0.0 (0.0-0.2) /100WBC Sodium 142 (135-145) mmol/L Potassium 4.1 (3.3-5.1) mmol/L Chloride 107 (96-108) mmol/L Carbon Dioxide 22 (22-29) mmol/L Anion Gap 17 (12-20) BUN 31 H D (9-16) mg/dL Creatinine 1.22 (0.5-1.4) mg/dL Estim Creat Clear Calc 33.8 Estimated GFR 43 Random Glucose 105 (60-115) mg/dL Calcium 8.6 D (8.4-10.2) mg/dL Magnesium (1.6-2.6) mg/dL Total Bilirubin (0.0-1.0) mg/dL Direct Bilirubin (0.0-0.5) mg/dL AST (5-31) U/L ALT (0-31) U/L Alkaline Phosphatase (39-117) U/L Total Protein (6.5-8.0) g/dL Albumin (3.5-5.0) g/dL Lipase (8-78) U/L COVID-19 (DEVANTE) Positive A (Negative) COVID-19 Clin Com See Note 04/08/22 Range/Units 12:26 WBC (4.8-10.8) X10*3/uL RBC (4.20-5.50) X10*6/uL Hgb (12.0-16.0) g/dl Hct (37.0-47.0) % MCV (80.0-98.0) fL MCH (27.0-33.0) pg MCHC (31.0-35.0) g/dl RDW (11.0-16.0) % Plt Count (160-400) X10*3/uL MPV (9.4-12.3) fL Immature Gran % (Auto) (0.0-0.4) % Neut % (Auto) (45-73) % Lymph % (Auto) (20-40) % [place] % (Auto) (2-11) % Eos % (Auto) (0-4) % Baso % (Auto) (0-2) % Lymph # (Auto) (1.2-4.9) X10*3/uL [place] # (Auto) (0.1-1.2) X10*3/uL Eos # (Auto) (0.0-0.4) X10*3/uL Baso # (Auto) (0.0-0.2) X10*3/uL Abs Immat Gran (auto) (0.00-0.03) X10*3/uL Absolute Neuts (auto) (2.0-8.3) x10*3/uL Absolute Nucleated RBC (0.0-0.012) X10*3/uL Nucleated RBC % (auto) (0.0-0.2) /100WBC Sodium (135-145) mmol/L Potassium (3.3-5.1) mmol/L Chloride (96-108) mmol/L Carbon Dioxide (22-29) mmol/L Anion Gap (12-20) BUN (9-16) mg/dL Creatinine (0.5-1.4) mg/dL Estim Creat Clear Calc Estimated GFR Random Glucose (60-115) mg/dL Calcium (8.4-10.2) mg/dL Magnesium 1.8 (1.6-2.6) mg/dL Total Bilirubin 0.6 (0.0-1.0) mg/dL Direct Bilirubin 0.3 (0.0-0.5) mg/dL AST 21 (5-31) U/L ALT 12 (0-31) U/L Alkaline Phosphatase 94 D (39-117) U/L Total Protein 6.8 (6.5-8.0) g/dL Albumin 4.0 (3.5-5.0) g/dL Lipase 17 (8-78) U/L COVID-19 (DEVANTE) (Negative) COVID-19 Clin Com Imaging Data CT scan abdomen pelvis without IV contrast: Attestation: I personally reviewed and interpreted this imaging study as follows: Radiologist's impression: [address] [address] [address] Scan Report Signed Patient: Bridget Rabago MR#: [id number] : 1945 Acct:[id number] Age/Sex: 76 / F ADM Date: 04/08/22 Loc: .ED Attending Dr: Ordering Physician: Susan Vyas Date of Service: 04/08/22 Procedure(s): CT abdomen pelvis wo IV con Accession Number(s): [id number] cc: Susan Vyas~ EXAMINATION: CT ABDOMEN AND PELVIS WITHOUT CONTRAST? CLINICAL INFORMATION: Diarrhea x9 days and Covid? COMPARISON: Multiple prior CT scans of the abdomen and pelvis the most recent of which was 10/22/2021? TECHNIQUE: Multidetector volumetric imaging was performed from the superior aspect of the liver through the pubic symphysis. Sagittal and coronal reformatted images were obtained on the technologist's workstation.? This CT examination was performed using dose optimization techniques as appropriate, variously including the following: *Automated exposure control *Adjustment of mA and/or kV according to patient size (this includes techniques or standardized protocols for targeted exams where dose is matched to indication/reason for exam; i.e. extremities or head) *Use of iterative reconstruction technique DLP: 410 mGy-cm FINDINGS: LUNG BASES: Emphysematous changes are present at the lung bases. No suspicious mass, groundglass infiltrates or pleural effusion is seen. Heart size is normal.? LIVER, GALLBLADDER, AND BILIARY TREE: The liver is normal in size, shape, and attenuation. No focal hepatic lesion or biliary ductal dilatation is present. The gallbladder is unremarkable with no evidence of radiopaque gallstones, gallbladder wall thickening, or obvious pericholecystic inflammatory changes.? PANCREAS: Unremarkable.? SPLEEN: Unremarkable.? ADRENAL GLANDS: Unremarkable.? KIDNEYS AND URETERS: There is partial infarction of a portion of the right kidney, better seen on prior contrast enhanced CT scans. This finding is stable. No hydronephrosis, nephrolithiasis or renal masses are seen.? BLADDER: Empty and cannot be evaluated? GASTROINTESTINAL TRACT: A moderate-sized hiatal hernia is present. Diverticular changes are present in the colon most prominent rectosigmoid. No evidence of diverticulitis. The small and large bowel are otherwise unremarkable. The appendix is unremarkable.? ABDOMINAL WALL: No significant hernia is appreciated.? LYMPH NODES: Normal. VASCULAR: An aortobiiliac stent graft is again seen. Sac size is stable. PELVIC VISCERA: Unremarkable.? OSSEOUS STRUCTURES: Unremarkable.? CT/CT abdomen pelvis wo IV con IMPRESSION: No pertinent abnormality is seen to account for the patient's diarrhea. Incidental note made again of pulmonary emphysema, partial infarction the right kidney, hiatal hernia, extensive colonic sigmoid diverticulosis and an aortobiiliac stent graft.? ? Fleischner guidelines were followed. Discharge Plan Discharge Clinical Impression: COVID-19, Diarrhea Patient Disposition: Home, Self-Care Instructions: COVID-19 (Coronavirus Disease 2019) (ED) Prescriptions: New ondansetron 4 mg tablet,disintegrating 4 mg PO Q8H Qty: 14 0RF No Action Eliquis 5 mg tablet 5 mg PO BID Qty: 60 3RF Creon 24,000-76,000 -120,000 unit capsule,delayed release(DR/EC) 1 cap PO TID Qty: 90 3RF albuterol sulfate 90 mcg/actuation HFA aerosol inhaler 1 inh inhalation QID PRN (Reason: shortness of breath or wheezing) Qty: 8.5 0RF atorvastatin 80 mg tablet 80 mg PO DAILY lisinopril 40 mg tablet 40 mg PO DAILY isosorbide mononitrate 60 mg tablet extended release 24 hr 60 mg PO DAILY Qty: 90 4RF omeprazole 20 mg capsule,delayed release(DR/EC) 20 mg PO BID 30 Days Qty: 60 6RF metoclopramide HCl [Reglan] 10 mg tablet 10 mg PO .tidac Qty: 90 6RF clopidogrel 75 mg tablet 75 mg PO DAILY Referrals: Wallace Roldan MD [Primary Care Provider] - 2 days Interventions: ED Discharge Assessment Last Done: 04/08/22 20:13 Discharge Date/Time: 04/08/22 20:14 Print Language: Urdu
[2022-04-08 17:42] LABS: Alanine Aminotransferase 12 U/L (0-31); Alkaline Phosphatase 94 U/L (39-117); Aspartate Amino Transferase 21 U/L (5-31); Bilirubin Direct 0.3 mg/dL (0.0-0.5); Bilirubin Total 0.6 mg/dL (0.0-1.0); Magnesium 1.8 mg/dL (1.6-2.6); Total Protein 6.8 g/dL (6.5-8.0)
[2022-04-08] MEDS: 0.9 % Sodium Chloride 1,000 ML 999 ML IVCONT (19:11)
[2022-04-08 19:20] VITALS: BP 137/69; PULSE 75; RESP 18
== END 2022-04-08 20:14 | disposition home or self-care (01) ==
PROVIDERS: Physician Assistant Medical; Emergency Provider Emergency Medicine; PCP Internal Medicine Medical Oncology
DX: U07.1 COVID-19 (principal); R19.7 Diarrhea, unspecified; R11.2 Nausea with vomiting, unspecified; I10 Essential (primary) hypertension; E78.5 Hyperlipidemia, unspecified; Z86.73 Personal history of transient ischemic attack (TIA), and cerebral infarction without residual deficits; Z87.891 Personal history of nicotine dependence; Z79.02 Long term (current) use of antithrombotics/antiplatelets; Z79.01 Long term (current) use of anticoagulants; Z79.899 Other long term (current) drug therapy
CPT/HCPCS: 36415; 74176; 80048; 80076; 83690; 83735; 85025; 87635; 99284

== ENCOUNTER → 2022-06-11 12:27 | Outpatient (BNVA) | payer MEDICARE, MEDICAID, SELFPAY | PROVIDERS: PCP Internal Medicine Medical Oncology; Referring Provider Internal Medicine Medical Oncology; Visit Provider Internal Medicine | DX: I25.10 Atherosclerotic heart disease of native coronary artery without angina pectoris (principal); I63.231 Cerebral infarction due to unspecified occlusion or stenosis of right carotid arteries; I71.40 Abdominal aortic aneurysm, without rupture, unspecified; I10 Essential (primary) hypertension | CPT/HCPCS: 99212 ==

== ENCOUNTER 2022-06-12 09:33 | Outpatient (REF) | payer MEDICARE, MEDICAID, SELFPAY ==
--- NOTE | ~2022-06-12 | XR_ITS ---
EXAMINATION: XR CHEST CLINICAL INFORMATION: COPD COMPARISON: Previous chest x-ray and chest CT most recent February 2021 TECHNIQUE: 2 views of the chest were obtained. FINDINGS: The cardiac and mediastinal contours are stable. There is biapical pleural thickening. There is a question of increased density at the right lung apex medial to the right first rib and overlying the right posterior third rib summation of vascular and bony structures and pleural thickening. There is new triangular-shaped density silhouetting the left hemidiaphragm suggestive of atelectasis is no corresponding abnormality is appreciated on the lateral view. The lungs are well inflated. There is no pleural effusion or pneumothorax. There is increased thoracic kyphosis. There is a thoracic vertebral body compression fracture and cement augmentation that appears unchanged. There are degenerative changes of the spine. There is a stent graft in the upper abdomen is partially visualized. XR/XR chest 2V IMPRESSION: Well-inflated lungs. Biapical pleural thickening. New increased density silhouetting the left hemidiaphragm at the left lung base probably representing left lower lobe atelectasis. Question increasing density at the right lung apex versus summation of vascular and bony structures. Imaging follow-up recommended.
== END 2022-06-12 09:34 | disposition home or self-care (01) ==
LOC: HO.XRAY 09:33
PROVIDERS: PCP Internal Medicine Medical Oncology; Visit Provider Hospitalist
DX: J44.1 Chronic obstructive pulmonary disease with (acute) exacerbation (principal); R06.00 Dyspnea, unspecified
CPT/HCPCS: 71046; 99212

== ENCOUNTER → 2022-07-02 11:32 | Outpatient (BNVA) | payer MEDICARE, MEDICAID, SELFPAY | PROVIDERS: PCP Internal Medicine Medical Oncology; Visit Provider Nurse Practitioner | DX: K59.04 Chronic idiopathic constipation (principal); K21.9 Gastro-esophageal reflux disease without esophagitis | CPT/HCPCS: 99212 ==

== ENCOUNTER 2022-08-27 09:43 | Outpatient (REF) | payer OTHER, SELFPAY ==
--- NOTE | ~2022-08-27 | MM_ITS ---
EXAMINATION: BONE DENSITOMETRY CLINICAL INDICATION: Age-related osteoporosis without current pathological fracture. COMPARISON: This is the patient's baseline examination. TECHNIQUE: Using a [employer] DXA System (software version: 13.1) manufactured by [employer], dual-energy x-ray absorptiometry was performed of the lumbar spine and left hip. The images are of good technical quality. Summary results are attached. FINDINGS: AP SPINE L1-L4: BMD 0.766 g/cm2, Z-score -1.3, T-score -3.5, osteoporosis. LEFT FEMUR, NECK: BMD 0.525 g/cm2, Z-score -1.5, T-score -3.7, osteoporosis. LEFT FEMUR, TOTAL: BMD 0.576 g/cm2, Z-score -1.4, T-score -3.4, osteoporosis. IDENTIFIED RISK FACTORS: Menopause. HISTORY OF FRACTURE: Toe. MEDICATIONS: None listed. MM/XR DEXA axial skeleton IMPRESSION: 1. DIAGNOSIS: Osteoporosis based on the lowest T-score value of -3.7 in the femoral neck applying World Health Organization criteria. 2. 10-YEAR FRACTURE RISK PREDICTION, FRAX: According to the guidelines, FRAX calculation should only be performed on patients in the osteopenia bone density category. Therefore, FRAX was not performed on this patient.? 3. Treatment Recommendations: NOF guidelines recommend consideration for treatment in postmenopausal women and men age 50 and older presenting with the following: -A hip or vertebral (clinical or morphometric) fracture. -T-score less than or equal to -2.5 at the femoral neck or spine after appropriate evaluation to exclude secondary causes. -Low bone mass at the hip or spine and a 10-year fracture probability by FRAX of greater than or equal to 3% for hip fracture or greater than or equal to 20% for major osteoporotic fracture based on the [place] adapted WHO algorithm. 4. Other Recommendations: All treatment decisions require clinical judgment and consideration of individual patient factors, including patient preferences, comorbidities, previous drug use, risk factors not captured in the FRAX model (e.g. frailty, falls, vitamin D deficiency, increased bone turnover, interval significant decline in bone density) and possible under or overestimation of fracture risk by FRAX. Additional medical evaluation for secondary cause of low bone mineral density may be appropriate. FUTURE SCAN RECOMMENDATION: People with diagnosed cases of osteoporosis or at high risk for fracture should have regular bone mineral density tests. For patients eligible for Medicare, routine testing is allowed once every 2 years. The testing frequency can be increased to one year for patients who have rapidly progressing disease, those who are receiving or discontinuing medical therapy to restore bone mass, or have additional risk factors.
== END 2022-08-27 09:44 | disposition home or self-care (01) ==
LOC: HO.MAMMO 09:43
PROVIDERS: Visit Provider Internal Medicine Medical Oncology
DX: Z13.820 Encounter for screening for osteoporosis (principal); Z78.0 Asymptomatic menopausal state
CPT/HCPCS: 77080

== ENCOUNTER 2022-08-31 17:34 | Emergency (ER) | payer OTHER, MEDICAID, SELFPAY ==
--- NOTE | ~2022-08-31 | CT_ITS ---
EXAMINATION: NONCONTRAST HEAD CT NONCONTRAST CERVICAL SPINE CT INDICATION INFORMATION: Post by dog with fall, head injury and neck pain COMPARISON: CT head cervical spine 03/19/2022 TECHNIQUE: Separate noncontrast CT examinations of the head and cervical spine were performed. Coronal and sagittal images were created for each examination at the technologist workstation. This CT examination was performed using dose optimization techniques as appropriate, variously including the following: *Automated exposure control *Adjustment of mA and/or kV according to patient size (this includes techniques or standardized protocols for targeted exams where dose is matched to indication/reason for exam; i.e. extremities or head) *Use of iterative reconstruction technique DLP: 842 mGy-cm FINDINGS: HEAD: No intra or extra-axial fluid collection, hemorrhage, or mass. No ventriculomegaly. No midline shift or herniation. Basal cisterns are patent. Schneider-white matter differentiation is maintained. Unchanged small areas of encephalomalacia within the right frontal and right occipital lobe consistent with prior infarcts. No significant volume loss. Patchy periventricular and deep white matter hypoattenuation is consistent with mild small vessel ischemic changes. No calvarial fracture or soft tissue abnormality. The mastoid air cells and visualized portions of the paranasal sinuses are well aerated. Status post bilateral lens extractions CERVICAL SPINE: Alignment: Unchanged since prior. Minimal grade 1 anterolisthesis at C3-C4, C7-T1, T1-T2 and T2-T3. No additional subluxation. Vertebra: No acute fracture. No prevertebral soft tissue swelling. Degenerative disc disease: Moderate multilevel disc degenerative change at C3-C4 through C6-C7 characterized by mild and/or moderate disc height loss, endplate sclerosis and proliferative change. Findings most advanced at C5-C6. Multilevel bilateral facet arthrosis and uncovertebral spurring. Other findings: Respiratory motion artifact. Centrilobular emphysema. Right greater than left biapical pleural parenchymal thickening/scarring. Subcentimeter hypodense left thyroid nodule. No imaging follow-up recommended. Major salivary glands are grossly unremarkable. No cervical lymphadenopathy. CT/CT cervical spine wo IV con IMPRESSION: 1. No intracranial hemorrhage or calvarial fracture. 2. No traumatic subluxation or acute cervical spine fracture. 3. Unchanged small chronic right frontal and right occipital lobe infarcts.
--- NOTE | ~2022-08-31 | XR_ITS ---
EXAMINATION: XR HIP, LEFT CLINICAL INFORMATION: Fall and pain COMPARISON: None TECHNIQUE: Frontal view pelvis with coned frontal and frog-leg lateral views of the left hip. FINDINGS: Both femoral heads are well-seated in their respected acetabula. I do not appreciate any cortical disruption or trabecular irregularity to suggest acute fracture or dislocation. Vascular calcification seen. Aortic stent graft partially visualized. Unremarkable bowel gas pattern. XR/XR hip LT w PEL1V IMPRESSION: Degenerative changes but no acute fracture or dislocation seen.
--- NOTE | ~2022-08-31 | XR_ITS ---
EXAMINATION: LEFT HAND AND WRIST CLINICAL INFORMATION: Pain after dog bite COMPARISON: Left wrist 07/10/2020 TECHNIQUE: 4 views of the left hand FINDINGS: There is an acute fracture involving the distal ulna mild displacement of the distal fracture fragment medially. No radial fracture is seen. No radiopaque foreign body. No air in the soft tissues. Degenerative changes are present in the hands at the first metacarpal phalangeal joint and the first CMC joint. A deformity is present at the lateral head of the fifth metacarpal with appearances consistent with a healed fracture when compared to the 07/10/2020 study which demonstrated an acute fracture. XR/XR hand wrist LT IMPRESSION: 1. Acute fracture distal ulna. 2. Old healed fracture fifth metacarpal. 3. Degenerative changes in the hand as described above.
[2022-08-31 17:43] VITALS: BP 128/72; BP 142/71; PULSE 85; PULSE 86; RESP 16; TEMP 36.9; O2SAT 92; O2SAT 94; BMI 21.7
[2022-08-31] MEDS: Amoxicillin/Potassium Clav 875 MG TABLET PO (18:07)
[2022-08-31] MEDS: Diphth,Pertus(ACell),Tet Adult 0.5 ML SYRINGE IM (18:07)
--- NOTE | 2022-08-31 18:08 | ED.GENADULT ---
HPI - General Adult General Chief complaint: General Medical Stated complaint: dog bite Time Seen by Provider: 08/31/22 17:51 Source: patient and EMS Mode of arrival: EMS Limitations: no limitations History of Present Illness HPI narrative: 77-year-old female brought in by ambulance after was bitten by a dog. Patient was bitten by a dog of her neighbor known history of biting other people, no permit and no history of immunization to the dog as per patient, the dog attacked the patient and bit her left hand and pushed the patient causing the patient to fall backward hitting her head and complaining of neck pain patient is taking Eliquis. According to the patient the bite was unprovoked, Unknown history of tetanus immunization or rabies immunization to the patient. Related Data Home Medications Medication Instructions Recorded Confirmed atorvastatin 80 mg tablet 80 mg PO DAILY 04/18/20 06/11/22 lisinopril 40 mg tablet 40 mg PO DAILY 04/29/21 06/11/22 clopidogrel 75 mg tablet 75 mg PO DAILY 10/23/21 06/11/22 latanoprost 0.005 % eye drops 1 drp ophthalmic (eye) DAILY 07/02/22 Previous Rx's Medication Instructions Recorded apixaban 5 mg tablet (Eliquis) 5 mg PO BID #60 tabs 11/17/21 ondansetron 4 mg disintegrating 4 mg PO Q8H nausea/vomiting #14 04/08/22 tablet tabs albuterol sulfate 90 mcg/actuation 1 inh inhalation QID PRN shortness 06/12/22 aerosol inhaler of breath or wheezing #8.5 grams fluticasone propionate 115 2 puff inhalation Q12H 30 days #12 06/12/22 mcg-salmeterol 21 mcg/actuation grams HFA inhaler (Advair HFA) isosorbide mononitrate 60 mg 60 mg PO DAILY #90 tabs 06/24/22 tablet,extended release 24 hr [id number] 1 cap PO TID #90 caps 07/02/22 24,000-76,000-120,000 unit capsule,delayed rel (Creon) metoclopramide HCl 10 mg tablet See Rx Instructions PO .tidac #120 07/02/22 (Reglan) tabs omeprazole 20 mg capsule,delayed 20 mg PO BID 30 days #60 caps 07/02/22 release amoxicillin 875 mg-potassium 1 tab PO BID #20 tabs 08/31/22 clavulanate 125 mg tablet Allergies Allergy/AdvReac Type Severity Reaction Status Date / Time No Known Allergies Allergy Verified 07/02/22 11:54 Review of Systems Review of Systems: All other systems are reviewed and are negative Constitutional: Reports as per HPI and Reports no additional constitutional complaints Eyes: Reports as per HPI and Reports no additional eye complaints Reports system reviewed and no additional complaints, except as documented Cardiovascular: Reports as per HPI and Reports no additional cardiovascular complaints Respiratory: Reports as per HPI and Reports no additional respiratory complaints Gastrointestinal: Reports as per HPI and Reports no additional gastrointestinal complaints Genitourinary: Reports no additional female genitourinary complaints Musculoskeletal: Reports no additional musculoskeletal complaints Skin/Breast: Reports system reviewed and no additional complaints, except as docu Psychiatric: Reports no additional psychiatric complaints Endocrine: Reports no additional endocrine complaints Hematologic/Lymphatic: Reports no additional hematologic/lymphatic complaints Allergic/Immunologic: Reports no additional allergic/immunologic complaints Reports system reviewed and no additional complaints, except as documented and Reports Abnormal speech present FOR[facility]LY [facility] Past Medical History Medical History Asthma COPD (chronic obstructive pulmonary disease) COPD (chronic obstructive pulmonary disease) CVA (cerebral vascular accident) Dyspnea Emphysema lung Emphysema of lung Essential hypertension Glaucoma Hernia History of pyloric channel ulcer Hydroureter, right Mild acid reflux Pernicious anemia Psoriasis Tachycardia Surgical History H/O carotid endarterectomy (04/01/20) History of AAA (abdominal aortic aneurysm) repair Hx of shoulder surgery Hx of varicose vein stripping Family History Family History Father No problems noted. Mother No problems noted. Sister No problems noted. Sister No problems noted. Sister No problems noted. Sister No problems noted. Sister Cancer Son No problems noted. Social History Social History Alcohol intake: never Patient Tobacco Use Status: Former Tobacco user Quit Date: 2019 Tobacco use type: Cigarette Cigarette Packs Per Day: 4 Cigarettes Per Day: 80.0 Years Smoked: 65 Advance Directives: Yes Advance Directives on File: Yes Advance Directives Date on File: 06/11/21 Physical Exam ED Vital Signs: Vital Signs - 24 hr 08/31/22 17:43 08/31/22 20:33 Temperature 98.4 F Pulse Rate 86 91 Respiratory Rate 16 19 Blood Pressure 142/71 H 135/73 Pulse Oximetry 94 93 Oxygen Delivery Method Nasal Cannula Nasal Cannula Oxygen Flow Rate 2 BMI result Body Mass Index 21.7 Vital signs have been reviewed as appeared to be correct. Blood pressure normal. Heart rate normal. Respiration rate normal. Temperature normal. Oxygen saturation normal. Appearance: Alert. Oriented X3. No acute distress. Head: Normal external exam. Normocephalic. Atraumatic. No Claros signs noted. No raccoon eyes noted Eyes: PERRLA. EOMI. Conjunctiva and sclera normal. Eyelids normal. ENT: TM's Normal. Pharynx normal. Uvula midline. Moist mucous membranes. No trismus noted. No drooling noted. No muffled voice noted. Neck: Normal inspection. Neck supple. FROM. No adenopathy. Thyroid Normal. No meningeal signs. No neck mass noted. CVS: Normal heart rate and rhythm. Heart sound normal. No murmurs noted. Pulses normal throughout. Respiratory: No respiratory distress. Painless inspiration. Breath sounds normal. No wheezes/rales/rhonchi noted. Chest nontender. No accessory muscle usage noted or decreased air movement noted. Abdomen: Soft and nontender. Bowel sounds normal in all 4 quadrants. No distention noted. No organomegaly noted. No visible injury noted. Back: No CVA tenderness. Full range of motion noted. Skin: Skin warm and dry. Normal skin color. Normal skin turgor. No rashes/lesions/lacerations noted. Extremities: Left hand exam, multiple tooth hero on the left hand and left wrist with tenderness over the ulnar side of the left wrist, 2 small laceration 1 is 2 cm over the base of the left thumb, the other 1 at the base of the 5th finger about 1 cm long, no palpable foreign body retained in the wound. Neuro: Oriented X 3. Cranial nerve exam: II-XII are grossly intact No motor deficit. No sensory deficit. Reflexes normal. Course Course Course Narrative: 77-year-old female bitten by a dog with unknown history of immunization, unprovoked attack, previous history of dog aggression and biting, start on rabies vac. and immune Globulin, Td, augmentin. Broken on a on the left wrist, contusion of the left hip with no fracture. head and c- spine CT is unremarkable, patient on anticoagulation. Reevaluation(s) Reevaluation #1: While the patient is waiting to be discharged, patient became diaphoretic, bradycardia, nausea. complaining of severe left hip pain after moved in the bed. Symptoms improved after given 1 L of normal saline and sublingual Zofran. Patient is now stable to be discharged home. Time: 21:36 Medications Administered Generic Name Dose Route Start Last Admin Trade Name Freq PRN Reason Stop Dose Admin Sodium Chloride 1,000 mls @ 999 mls/hr 08/31/22 20:45 08/31/22 20:33 Ns IV 08/31/22 21:45 999 mls/hr .Q1H1M [place] Administration Sodium Chloride 1,000 mls @ 999 mls/hr 08/31/22 20:45 08/31/22 20:57 Ns IV 08/31/22 21:45 Not Given .Q1H1M ONE Discontinued Medications Generic Name Dose Route Start Last Admin Trade Name Freq PRN Reason Stop Dose Admin Amoxicillin/Clavulanate Potassium 875 mg 08/31/22 17:58 08/31/22 18:07 Amoxicillin/Potassium Clav 875 Mg Tablet PO 08/31/22 17:59 875 mg ONCE ONE Administration Diphtheria/Tetanus/Acell Pertussis 0.5 ml 08/31/22 17:58 08/31/22 18:07 Diphth,Pertus(Acell),Tet Adult 0.5 Ml Syringe IM 08/31/22 17:59 0.5 ml .ONCE ONE Administration Ondansetron HCl 4 mg 08/31/22 20:31 08/31/22 20:33 Ondansetron Odt 4 Mg Tab.Rapdis TRANSLINGU 08/31/22 20:32 4 mg ONCE ONE Administration Rabies Immune Globulin 1,148 unit 08/31/22 18:01 08/31/22 18:53 Rabies Immune Globulin/Pf 900 Unit/3 Ml Vial 20 unit/kg (1148 unit) 08/31/22 18:02 1,148 unit IM Administration ONCE ONE Rabies Vaccine 1 ml 08/31/22 18:01 08/31/22 18:54 Rabies Vaccine (Pcec)/Pf 1 Ml Vial IM 08/31/22 18:02 1 ml .ONCE ONE Administration Medical Decision Making Differential Diagnosis Differential Diagnoses: The differential diagnosis associated with the presentation includes (Dog bite, wrist fracture, retained dog teeth, cellulitis, Tetanus update, Rabies vaccination, coagulopathy. ) Independent Interpretation I performed an independent interpretation of an: Plain X-Ray (left hand and wrist: no fracture or fb.) and CT Scan (head and C-spine: no IC bleeding, no cervical spine injury. ) Radiology Impression Discussion of test interpretation with radiology: I have reviewed the radiologist's reading. Prescription Management I considered prescription management with: Other (on anticoagulation therapy.) Discharge Plan Discharge Clinical Impression: Dog bite, Fracture, ulna, distal, Contusion of hip, left Patient Disposition: Home, Self-Care Instructions: Animal Bite (ED), Rabies (ED) Additional Instructions: come back 09/03,09/07,09/13 to complete you vaccinations. Prescriptions: New amoxicillin-pot clavulanate 875-125 mg tablet 1 tab PO BID Qty: 20 0RF No Action Eliquis 5 mg tablet 5 mg PO BID Qty: 60 3RF isosorbide mononitrate 60 mg tablet extended release 24 hr 60 mg PO DAILY Qty: 90 3RF ondansetron 4 mg tablet,disintegrating 4 mg PO Q8H Qty: 14 0RF atorvastatin 80 mg tablet 80 mg PO DAILY lisinopril 40 mg tablet 40 mg PO DAILY Advair HFA 115-21 mcg/actuation HFA aerosol inhaler 2 puff inhalation Q12H 30 Days Qty: 12 11RF albuterol sulfate 90 mcg/actuation HFA aerosol inhaler 1 inh inhalation QID PRN (Reason: shortness of breath or wheezing) Qty: 8.5 11RF latanoprost 0.005 % drops 1 drp ophthalmic (eye) DAILY Rx Instructions: One eye drop in each eye at bedtime. clopidogrel 75 mg tablet 75 mg PO DAILY metoclopramide HCl [Reglan] 10 mg tablet See Rx Instructions PO .tidac Qty: 120 6RF Rx Instructions: 1 qam, 1 qnoon, 2 qacsupper orally TIDAC; Creon 24,000-76,000 -120,000 unit capsule,delayed release(DR/EC) 1 cap PO TID Qty: 90 6RF omeprazole 20 mg capsule,delayed release(DR/EC) 20 mg PO BID 30 Days Qty: 60 6RF
[2022-08-31] MEDS: Rabies Immune Globulin/PF 900 UNIT/3 ML VIAL 1148 UNIT IM (18:53)
[2022-08-31] MEDS: Rabies Vaccine (PCEC)/PF 1 ML VIAL IM (18:54)
--- NOTE | 2022-08-31 20:02 | PC.NURSE ---
PCT [place] placed pt in Left Wrist/forearm brace for ulna fracture. Pt received all vaccines for first round of Rabies
--- NOTE | 2022-08-31 20:30 | PC.NURSE ---
this RN entered pts room and pt stated they were not feeling well. Pts heart rate was rapidly decreasing from 80s to 30s. Dr. Kahn at bedside. Verbal order for sublingual zofran and 1 liter of fluids
[2022-08-31 20:33] VITALS: BP 135/73; PULSE 91; RESP 19; O2SAT 93
[2022-08-31] MEDS: 0.9 % Sodium Chloride 1,000 ML 999 ML IV (20:33)
[2022-08-31] MEDS: Ondansetron ODT 4 MG TAB.RAPDIS TRANSLINGU (20:33)
== END 2022-08-31 21:59 | disposition home or self-care (01) ==
PROVIDERS: Emergency Provider Emergency Medicine
DX: S61.452A Open bite of left hand, initial encounter (principal); S52.202A Unspecified fracture of shaft of left ulna, initial encounter for closed fracture; S70.02XA Contusion of left hip, initial encounter; S60.512A Abrasion of left hand, initial encounter; R51.9 Headache, unspecified; M79.642 Pain in left hand; M54.2 Cervicalgia; W54.0XXA Bitten by dog, initial encounter; Y93.9 Activity, unspecified; Y92.9 Unspecified place or not applicable; Y99.9 Unspecified external cause status; Z79.899 Other long term (current) drug therapy; Z23 Encounter for immunization; Z20.3 Contact with and (suspected) exposure to rabies
CPT/HCPCS: 70450; 72125; 73110; 73130; 73502; 90375; 90471; 90472; 90675; 90715; 96360; 96361; 96372; 99284

== ENCOUNTER 2022-09-03 15:06 | Outpatient (REF) | payer OTHER, SELFPAY | END 2022-09-03 15:07 | disposition home or self-care (01) | LOC: HO.MDS 15:06 | PROVIDERS: Visit Provider Emergency Medicine | DX: Z29.14 Encounter for prophylactic rabies immune globulin (principal); S60.8 Other superficial injuries of wrist; W54.0XXD Bitten by dog, subsequent encounter; Z20.3 Contact with and (suspected) exposure to rabies | CPT/HCPCS: 90471; 90675 ==

== ENCOUNTER 2022-09-07 15:04 | Outpatient (REF) | payer OTHER, MEDICAID, SELFPAY | END 2022-09-07 15:05 | disposition home or self-care (01) | LOC: HO.MDS 15:04 | PROVIDERS: Visit Provider Emergency Medicine | DX: Z29.14 Encounter for prophylactic rabies immune globulin (principal); S60.8 Other superficial injuries of wrist; W54.0XXD Bitten by dog, subsequent encounter; Z20.3 Contact with and (suspected) exposure to rabies | CPT/HCPCS: 90471; 90675 ==

== ENCOUNTER 2022-09-11 11:48 | Inpatient (IN) | payer OTHER, MEDICAID, SELFPAY ==
[2022-09-11] VITALS (8 sets, daily range): BP systolic 92–146; BP diastolic 41–59; PULSE 74–98; RESP 13–26; TEMP 36.7–36.8; O2SAT 95–98; BMI 22.1
--- NOTE | ~2022-09-11 | CT_ITS ---
EXAMINATION: CT CERVICAL SPINE WITHOUT CONTRAST CLINICAL INFORMATION: Syncope, neck pain, rule out fracture. COMPARISON: Neck CT scan dated 08/31/2022. TECHNIQUE: Multiple axial images of the cervical spine were obtained without the administration of intravenous contrast. Coronal and sagittal reformatted images were obtained. This CT examination was performed using dose optimization techniques as appropriate, variously including the following: *Automated exposure control *Adjustment of mA and/or kV according to patient size (this includes techniques or standardized protocols for targeted exams where dose is matched to indication/reason for exam; i.e. extremities or head) *Use of iterative reconstruction technique DLP: 240.04 mGy-cm FINDINGS: There is normal cervical lordosis. Generalized osteopenia is seen. Mild to moderate multilevel degenerative disc disease is seen most pronounced at C5-C6 with disc space narrowing, marginal osteophyte formation and mild bilateral neural foraminal narrowing. The odontoid process is intact with moderate articulating degenerative changes. Mild to moderate bilateral facet arthropathy is seen. The spinous and transverse processes are intact. The cervical soft tissues are unremarkable. No lymphadenopathy. Lung apices show mild to moderate biapical pleural thickening and scarring and moderate centrilobular/paraseptal emphysema. CT/CT cervical spine wo IV con IMPRESSION: 1. Mild to moderate multilevel degenerative changes without acute abnormality or significant change. 2. Mild to moderate biapical pleural thickening and scarring with moderate centrilobular/paraseptal emphysema. Fleischner guidelines were followed.
--- NOTE | ~2022-09-11 | XR_ITS ---
EXAMINATION: XR WRIST, LEFT CLINICAL INFORMATION: Left distal ulnar fracture, pain. COMPARISON: Radiograph of the left hand/wrist 08/31/2022. TECHNIQUE: PA, lateral, and oblique views of the left wrist. FINDINGS: Comminuted distal ulnar fracture with increased volar displacement of the distal fragment best visualized on the lateral view compared to 08/31/2022. Chronic deformity of the fifth metacarpal. No other fractures. Carpal rows are maintained. Mild to moderate joint space narrowing with subcortical sclerosis of the first carpometacarpal joint. Decreased bone mineralization. XR/XR wrist LT min 3V IMPRESSION: 1. Comminuted distal ulnar fracture with increased volar displacement of the distal fragment compared to 08/31/2022. 2. Mild to moderate degenerative osteoarthritis of the first carpometacarpal joint.
--- NOTE | ~2022-09-11 | CT_ITS ---
EXAMINATION: CT HEAD WITHOUT CONTRAST CLINICAL INFORMATION: Syncope, head injury, headache, rule out fracture. COMPARISON: Head CT scan dated 08/31/2022. TECHNIQUE: Contiguous axial imaging was performed from the skull base to vertex without intravenous administration of contrast. Coronal and sagittal reformatted images were obtained. This CT examination was performed using dose optimization techniques as appropriate, variously including the following: *Automated exposure control *Adjustment of mA and/or kV according to patient size (this includes techniques or standardized protocols for targeted exams where dose is matched to indication/reason for exam; i.e. extremities or head) *Use of iterative reconstruction technique DLP: 909 mGy-cm FINDINGS: There is mild widening of the cortical sulci and associated ventriculomegaly. The lateral ventricles are symmetrical. The third and fourth ventricles are in their normal midline position. The basilar and prepontine cisterns are unremarkable. Mild periventricular microvascular changes are seen. There is no acute intra or extracerebral abnormality. There is no mass effect or midline shift. Sections through the bony calvarium are unremarkable. The orbits are intact. The paranasal sinuses are clear. The mastoid air cells are clear. CT/CT head/brain wo IV con IMPRESSION: No acute intracranial pathology.
--- NOTE | ~2022-09-11 | XR_ITS ---
EXAMINATION: XR CHEST CLINICAL INFORMATION: Short of breath. Fall. COMPARISON: 06/12/2022 TECHNIQUE: Frontal view of the chest was obtained. FINDINGS: Cardiac leads overlie the chest. The lungs are well expanded. There is no focal consolidation, edema, or effusion. No pneumothorax. The cardiomediastinal silhouette is within normal limits. No acute osseous abnormality. Thoracic spinal kyphoplasty cement. Chronic widening at the right acromioclavicular joint. Abdominal aortic stent graft partially seen. XR/XR chest 1V IMPRESSION: No acute pulmonary disease. No displaced fractures are seen.
--- NOTE | 2022-09-11 12:30 | PC.NURSE ---
SENT FROM DR. VENTURA OFFICE AFTER SYNCOPAL EPISODE. ROUTINE FOLLOW-UP IN OFFICE FOR PITBULL ATTACK THAT RESULTED IN L BROKEN WRIST. PT DOES NOT REMEMBER IF SHE SURE IF SHE HIT HER HEAD/LOC.
--- NOTE | 2022-09-11 14:56 | ECG_ITS ---
Test Reason : SYNCOPEE Blood Pressure : / mmHG Vent. Rate : 083 BPM Atrial Rate : 083 BPM P-R Int : 126 ms QRS Dur : 076 ms QT Int : 424 ms P-R-T Axes : 051 052 148 degrees QTc Int : 498 ms Sinus rhythm with sinus arrhythmia with Premature ventricular complexes or Fusion complexes Low voltage QRS T wave abnormality, consider anterolateral ischemia Prolonged QT Abnormal ECG When compared with ECG of 19-MAR-2022 15:42, Fusion complexes are now Present Nonspecific T wave abnormality, worse in Inferior leads T wave inversion now evident in Anterolateral leads QT has lengthened Referred By: Bulmaro Rudd Electronically Signed By:JOHAN VANCE MD
--- NOTE | 2022-09-11 14:57 | ED_ITS ---
HPI - Syncope General Chief Complaint: Syncope Stated Complaint: Fall at doctors office per EMS Time Seen by Provider: 09/11/22 14:42 Source: patient Mode of arrival: EMS Limitations: no limitations History of Present Illness HPI narrative: 77-year-old female who presents emergency department for evaluation of a sy ncopal episode at her doctor's office. The patient was seen in the emergency department on 08/31/2022 for a dog bite to her left forearm. She sustained a fracture of the distal ulna. She was given rabies prophylaxis with immunoglobulin and also given rabies vaccine. She was given a Tdap. Patient was started on Augmentin. She followed up today with her primary care provider, Dr. Brown. Patient states that she has been constipated for 10 days. She states that she was in the bathroom , she states that she urinates, got a in was walking out of the bathroom . She felt lightheaded and dizzy and called for her BODY DESIGN CHECKER to come help. I did speak to her BODY DESIGN CHECKER Palmira who states that she got to the patient before she fell to the ground but she believes that the patient may have struck her head. She states that the patient was out of it completely. They were able to get her into a wheelchair but she kept fainting. The BODY DESIGN CHECKER believes that the patient's heart rate was very fast. When Dr. Brown finally got the patient, he stated that his heart rate was normal according to the patient's BODY DESIGN CHECKER. The patient was brought to emergency department by ambulance. Patient states that she had a syncopal episode 3 episodes of syncope the past 2- 3 weeks. Her 1st episode was in the bank. Her BODY DESIGN CHECKER states that it was very hot in the bank and the patient complained of feeling ill and then passed out for several minutes. The 2nd episode happened when the patient was alone watching television. And a 3rd episode happened today. At the time my evaluation the patient is awake and alert, she has no complaints. Patient does have COPD and states she wears 2 L of oxygen as needed Related Data Home Medications Medication Instructions Recorded Confirmed atorvastatin 80 mg tablet 80 mg PO DAILY 04/18/20 06/11/22 lisinopril 40 mg tablet 40 mg PO DAILY 04/29/21 06/11/22 clopidogrel 75 mg tablet 75 mg PO DAILY 10/23/21 06/11/22 latanoprost 0.005 % eye drops 1 drp ophthalmic (eye) DAILY 07/02/22 Previous Rx's Medication Instructions Recorded apixaban 5 mg tablet (Eliquis) 5 mg PO BID #60 tabs 11/17/21 ondansetron 4 mg disintegrating 4 mg PO Q8H nausea/vomiting #14 04/08/22 tablet tabs albuterol sulfate 90 mcg/actuation 1 inh inhalation QID PRN shortness 06/12/22 aerosol inhaler of breath or wheezing #8.5 grams fluticasone propionate 115 2 puff inhalation Q12H 30 days #12 06/12/22 mcg-salmeterol 21 mcg/actuation grams HFA inhaler (Advair HFA) isosorbide mononitrate 60 mg 60 mg PO DAILY #90 tabs 06/24/22 tablet,extended release 24 hr vdynty-tigsvufq-tzhoauj 1 cap PO TID #90 caps 07/02/22 24,000-76,000-120,000 unit capsule,delayed rel (Creon) metoclopramide HCl 10 mg tablet See Rx Instructions PO .tidac #120 07/02/22 (Reglan) tabs omeprazole 20 mg capsule,delayed 20 mg PO BID 30 days #60 caps 07/02/22 release amoxicillin 875 mg-potassium 1 tab PO BID #20 tabs 08/31/22 clavulanate 125 mg tablet docusate sodium 100 mg capsule 100 mg PO BID #60 caps 09/11/22 (Colace) sennosides 17.2 mg tablet (Senokot 17.2 mg PO BID PRN constipation 09/11/22 Extra Strength) #30 tabs Allergies Allergy/AdvReac Type Severity Reaction Status Date / Time No Known Allergies Allergy Verified 09/11/22 12:31 Review of Systems Review of Systems: Yes all other systems are reviewed and are negative [facility] Past Medical History [facility] Narrative: Social history: The patient denies tobacco use. She states she is a former smoker and quit 2 years prior but smoked for 64 years. She denies alcohol use. She denies drug use. Medical History Asthma COPD (chronic obstructive pulmonary disease) COPD (chronic obstructive pulmonary disease) CVA (cerebral vascular accident) Dyspnea Emphysema lung Emphysema of lung Essential hypertension Glaucoma Hernia History of pyloric channel ulcer Hydroureter, right Mild acid reflux Pernicious anemia Psoriasis Tachycardia Surgical History H/O carotid endarterectomy (04/01/20) History of AAA (abdominal aortic aneurysm) repair Hx of shoulder surgery Hx of varicose vein stripping Family History Family History Father No problems noted. Mother No problems noted. Sister No problems noted. Sister No problems noted. Sister No problems noted. Sister No problems noted. Sister Cancer Son No problems noted. Social History Social History Alcohol intake: never Patient Tobacco Use Status: Former Tobacco user Quit Date: 2019 Tobacco use type: Cigarette Cigarette Packs Per Day: 4 Cigarettes Per Day: 80.0 Years Smoked: 65 Smoked in Last 30 Days: No Use of substances other than those prescribed or required for medical reasons: No Advance Directives: Yes Advance Directives on File: Yes Advance Directives Date on File: 06/11/21 Physical Exam Vital Signs: Vital Signs: Last Vital Signs Temp 98.2 F 09/11/22 17:34 Pulse 83 09/11/22 17:34 Resp 16 09/11/22 17:34 BP 104/41 L 09/11/22 17:34 Pulse Ox 95 09/11/22 17:34 O2 Del Method 09/11/22 17:34 O2 Flow Rate 2 09/11/22 14:56 BMI result Body Mass Index 22.1 Const: Other: Awake, alert, female patient, pleasant, cooperative, in no distress, answers all questions appropriately HEENT: Head: Yes normal to inspection, Yes normocephalic and Yes atraumatic Ears: external ears normal General nose exam: Normal external nose present Face and sinus: Yes normal facial exam Mouth: Normal oral and palatal mucosa present Throat: Yes posterior oropharynx normal Eyes: General: appearance normal, both eyes and all related structures Pupils: Equal, round and reactive pupils present Neck: Neck: Yes normal visual inspection, Yes no lymphadenopathy, Yes trachea midline and Yes supple Chest: Chest palpation & inspection: normal inspection of the chest and normal palpation of entire chest wall Resp: Effort & Inspection: normal respiratory effort and able to speak in complete sentences Auscultation: clear to auscultation bilaterally Cardio: Rate: regular rate Rhythm: regular rhythm Heart sounds: S1 normal heart sound present, S2 normal heart sound present and no murmurs GI: Inspection: Yes normal to inspection Palpation (GI): Soft to palpation, nontender and no guarding Auscultation: normal bowel sounds : General: Yes no CVA tenderness Back/Spine/Pelvis: Back: no CVA tenderness Skin: General skin exam: no rashes or lesions noted Neuro: Cranial nerves: Yes CN's II-XII intact bilaterally and Yes Equal, round and reactive pupils present Cognition (Neuro): normal cognition Motor exam (neuro): 5/5 motor strength present throughout Extrem: Other: The patient has a Velcro splint on her left wrist. This was taken off. The patient has swelling over her distal, with tenderness palpation of this area. The patient's pulses are intact, there is ecchymosis to her forearm with no evidence of cellulitis or infection. Psych: Appearance: grossly normal Speech and movement: Normal speech and movement present Affect: normal affect Attitude: cooperative Medications Administered Discontinued Medications Generic Name Dose Route Start Last Admin Trade Name Freq PRN Reason Stop Dose Admin Sodium Chloride 1,000 mls @ 999 mls/hr 09/11/22 14:55 09/11/22 17:35 Ns IV 09/11/22 15:55 Infused .Q1H1M STA Infusion Medical Decision Making Medical Decision Making MDM Narrative: 77-year-old female who was sent to the emergency department by ambulance after having a syncopal episode at her doctor's office. Patient went to the doctor for follow-up of a dog bite and distal ulnar fracture of her left forearm. Patient states she has been constipated has not moved her bowels in 10 days. The patient states that she went to the bathroom, got off the toilet and was walking when she fell lightheadedness as if she was going to pass out . She called her PCP who helped her to the ground but the patient did pass out. BODY DESIGN CHECKER felt that the patient's heart was racing fast. The patient's vital signs did reveal low blood pressure of 101/59 otherwise were unremarkable. Physical examination is consistent with her dog bite to the left forearm and distal ulnar fracture with no evidence of cellulitis. Her neurologic exam was nonfocal. I did order laboratory evaluation to include CBC, CMP, PT/INR, PTT, troponin, EKG. I also ordered a CT scan of the head and cervical spine. 1728: My independent interpretation patient's laboratory evaluation as follows: CBC was normal. INR elevated 1.4. Glucose elevated 123. Alk-phos elevated 132. High sensitivity troponin I was detectable at 6.3 but not elevated. Chest x-ray was unremarkable. Patient's CT scan of the brain and cervical spine revealed no acute fractures. The patient's 12 EKG did revealed inverted T-waves V2 through V5 which are new compared to EKG dated 03/19/2022. The patient's syncopal episode may be vasovagal however is concerning that her 12 EKG reveals inverted T-waves V2 through V 5 suggesting that she may have ischemia. I will repeat the patient's troponin in 3 hours at 1715: I will discuss admission with the covering hospitalist. 1823: The patient was off her oxygen and O2 saturation dropped to 85% and she is now feeling short of breath, patient does have wheezing and she was ordered to get an albuterol nebulize and Solu-Medrol 125 mg IV.. I did discuss over tiger text the patient's presentation with the covering hospitalist, Dr. Schafer and the patient will be admitted for further management. Differential Diagnosis Differential diagnosis includes was not limited to a arrhythmia myocardial infarction, myocardial ischemia, vasovagal syncope, constipation, electrolyte abnormality, skull fracture, cervical fracture, intracranial hemorrhage Consult Healthcare Provider Management of the patient was discussed with: Hospitalist Lab Data MDM Lab Attestation statement: I reviewed the patient's lab results. Please see MDM from my discussion 09/11/22 16:14 09/11/22 16:14 Labs: Lab Results 09/11/22 09/11/22 09/11/22 Range/Units 16:14 16:14 16:14 WBC 7.3 (4.8-10.8) X10*3/uL RBC 4.49 (4.20-5.50) X10*6/uL Hgb 12.0 (12.0-16.0) g/dl Hct 38.8 (37.0-47.0) % MCV 86.4 (80.0-98.0) fL MCH 26.7 L (27.0-33.0) pg MCHC 30.9 L (31.0-35.0) g/dl RDW 15.7 (11.0-16.0) % Plt Count 270 D (160-400) X10*3/uL MPV 11.0 (9.4-12.3) fL Immature Gran % (Auto) 0.4 (0.0-0.4) % Neut % (Auto) 86.6 H (45-73) % Lymph % (Auto) 7.9 L (20-40) % [place] % (Auto) 4.5 (2-11) % Eos % (Auto) 0.3 (0-4) % Baso % (Auto) 0.3 (0-2) % Lymph # (Auto) 0.6 L (1.2-4.9) X10*3/uL [place] # (Auto) 0.3 (0.1-1.2) X10*3/uL Eos # (Auto) 0.0 (0.0-0.4) X10*3/uL Baso # (Auto) 0.0 (0.0-0.2) X10*3/uL Abs Immat Gran (auto) 0.03 (0.00-0.03) X10*3/uL Absolute Neuts (auto) 6.4 (2.0-8.3) x10*3/uL Absolute Nucleated RBC 0.000 (0.0-0.012) X10*3/uL Nucleated RBC % (auto) 0.0 (0.0-0.2) /100WBC PT (10.0-13.1) SEC INR (0.9-1.1) APTT (26.0-36.4) SEC Sodium 142 (135-145) mmol/L Potassium 4.5 (3.3-5.1) mmol/L Chloride 106 (96-108) mmol/L Carbon Dioxide 28 (22-29) mmol/L Anion Gap 13 (12-20) BUN 16 (9-16) mg/dL Creatinine 0.81 (0.5-1.4) mg/dL Estim Creat Clear Calc 50.2 Estimated GFR > 60 Random Glucose 123 H (60-115) mg/dL Calcium 8.8 (8.4-10.2) mg/dL Total Bilirubin 1.0 (0.0-1.0) mg/dL AST 11 (5-31) U/L ALT < 6 (0-31) U/L Alkaline Phosphatase 132 H (39-117) U/L Troponin I High Sens 6.3 (<3.5-17.0) ng/L Total Protein 6.5 (6.5-8.0) g/dL Albumin 3.6 (3.5-5.0) g/dL 09/11/22 Range/Units 16:14 WBC (4.8-10.8) X10*3/uL RBC (4.20-5.50) X10*6/uL Hgb (12.0-16.0) g/dl Hct (37.0-47.0) % MCV (80.0-98.0) fL MCH (27.0-33.0) pg MCHC (31.0-35.0) g/dl RDW (11.0-16.0) % Plt Count (160-400) X10*3/uL MPV (9.4-12.3) fL Immature Gran % (Auto) (0.0-0.4) % Neut % (Auto) (45-73) % Lymph % (Auto) (20-40) % [place] % (Auto) (2-11) % Eos % (Auto) (0-4) % Baso % (Auto) (0-2) % Lymph # (Auto) (1.2-4.9) X10*3/uL [place] # (Auto) (0.1-1.2) X10*3/uL Eos # (Auto) (0.0-0.4) X10*3/uL Baso # (Auto) (0.0-0.2) X10*3/uL Abs Immat Gran (auto) (0.00-0.03) X10*3/uL Absolute Neuts (auto) (2.0-8.3) x10*3/uL Absolute Nucleated RBC (0.0-0.012) X10*3/uL Nucleated RBC % (auto) (0.0-0.2) /100WBC PT 15.9 H (10.0-13.1) SEC INR 1.4 H (0.9-1.1) APTT 30.8 (26.0-36.4) SEC Sodium (135-145) mmol/L Potassium (3.3-5.1) mmol/L Chloride (96-108) mmol/L Carbon Dioxide (22-29) mmol/L Anion Gap (12-20) BUN (9-16) mg/dL Creatinine (0.5-1.4) mg/dL Estim Creat Clear Calc Estimated GFR Random Glucose (60-115) mg/dL Calcium (8.4-10.2) mg/dL Total Bilirubin (0.0-1.0) mg/dL AST (5-31) U/L ALT (0-31) U/L Alkaline Phosphatase (39-117) U/L Troponin I High Sens (<3.5-17.0) ng/L Total Protein (6.5-8.0) g/dL Albumin (3.5-5.0) g/dL Independent Interpretation I performed an independent interpretation of an: EKG Interpretation: My independent interpretation of the patient's 12 EKG done at 17:30: Sinus rhythm with a rate of 83, normal MN interval, QRS duration. Prolonged QTC of 498 milliseconds, occasional PVC, no ST segment elevation, no ST segment depression, inverted T-waves V2 through V5. Compared to EKG dated 03/19/2022 these inverted T-waves are new. Independent Historian Clinical information obtained from an independent historian. History obtained from or confirmed by: Other (Patient has BODY DESIGN CHECKER, Sabrina) Discharge Plan Discharge Clinical Impression: Syncope, Acute constipation, Abnormal ECG Patient Disposition: Admitted As Inpatient
[2022-09-11] MEDS: 0.9 % Sodium Chloride 1,000 ML 999 ML IV (15:11)
[2022-09-11 16:23] LABS: MANUAL DIFF FLAG NO
[2022-09-11 16:27] LABS: Basophils Percent Auto 0.3 % (0-2); Eosinophils Percent Auto 0.3 % (0-4); Hematocrit 38.8 % (37.0-47.0); Imm Gran Abs Auto 0.03 X10*3/uL (0.00-0.03); Imm Gran Pct Auto 0.4 % (0.0-0.4); Lymphocytes Absolute Auto 0.6 X10*3/uL (1.2-4.9); Lymphocytes Percent Auto 7.9 % (20-40); Mean Corpuscular HGB Conc 30.9 g/dl (31.0-35.0); Mean Corpuscular Hemoglobin 26.7 pg (27.0-33.0); Mean Corpuscular Volume 86.4 fL (80.0-98.0); Monocytes Absolute Auto 0.3 X10*3/uL (0.1-1.2); Monocytes Percent Auto 4.5 % (2-11); Neutrophils Absolute Auto 6.4 x10*3/uL (2.0-8.3); Neutrophils Percent Auto 86.6 % (45-73); Platelet Count 270 X10*3/uL (160-400); Red Blood Count 4.49 X10*6/uL (4.20-5.50); Red Cell Distribution Width 15.7 % (11.0-16.0); White Blood Count 7.3 X10*3/uL (4.8-10.8)
[2022-09-11 16:38] LABS: INTERNATIONAL NORM RATIO 1.4 (0.9-1.1); Prothrombin Time 15.9 SEC (10.0-13.1)
[2022-09-11 16:40] LABS: Partial Thromboplastin Time 30.8 SEC (26.0-36.4)
[2022-09-11 16:48] LABS: Alanine Aminotransferase < 6 U/L (0-31); Albumin Level 3.6 g/dL (3.5-5.0); Alkaline Phosphatase 132 U/L (39-117); Anion Gap 13 (12-20); Aspartate Amino Transferase 11 U/L (5-31); Blood Urea Nitrogen 16 mg/dL (9-16); Calcium 8.8 mg/dL (8.4-10.2); Carbon Dioxide 28 mmol/L (22-29); Chloride 106 mmol/L (96-108); Creatinine Clr Calc Pharmacy 50.2; Estimated Glomerular Filt Rate > 60; Glucose Random 123 mg/dL (60-115); Potassium 4.5 mmol/L (3.3-5.1); Sodium 142 mmol/L (135-145); Total Protein 6.5 g/dL (6.5-8.0); Troponin-I High Sensitivity 6.3 ng/L (<3.5-17.0)
--- NOTE | 2022-09-11 17:26 | MHC.EDTECH ---
provider said not to do ekg .
[2022-09-11] MEDS: methylPREDNISolone Sod Succ 125 MG/2 ML VIAL IVPUSH (18:25)
[2022-09-11] MEDS: Albuterol Sulfate (0.083%) 2.5 MG/3 ML VIAL.NEB 5 MG INHALE (18:54)
--- NOTE | 2022-09-11 19:44 | PHA.MEDREC ---
Pharmacy Consult ? Medication Reconciliation Pharmacy has completed the medication reconciliation. Spoke with pt who said to contact Lena. Spoke with Lena over the phone and confirmed med list
--- NOTE | 2022-09-11 22:52 | P.HPHOSP_ITS ---
History of Present Illness Date of Service: 09/11/22 Chief Complaint: Syncope This is a 77-year-old female with chronic hypoxemic respiratory failure due to COPD, essential hypertension, AAA repair on Eliquis who presents to the emergency department for evaluation of syncope. Patient states that when she was in the bathroom, she she tried to get up after urinating and felt dizzy, lightheaded. Also had palpitations and soon after patient passed out. As per the INTERNET [employer] COMMER[employer] SPECIALIST, unclear if the patient hit her head. Patient was without consciousness. No rhythmic jerking movement of extremities or tongue bite. The piece he believes that the patient's heart rate was very fast. Patient went to Dr. phillip and by the time the heart rate had normalized. He sent her to the ER for further evaluation. Patient states she has had 2-3 syncopal episodes in the last 2-3 weeks. The 1st episode happened in the bank and the 2nd episode was while she was watching television. Of note, patient had a dog bite on 08/31 when she was started with Augmentin. At the time of my evaluation, patient without any complaints Review of Systems Constitutional: Constitutional: Reports no additional constitutional complaints Cardiovascular: Cardiovascular: Reports syncope, Reports rapid heart rate and Reports palpitations Respiratory: Respiratory: Reports no additional respiratory complaints Gastrointestinal: Gastrointestinal: Reports no additional gastrointestinal complaints Genitourinary: Genitourinary: Reports no additional female genitourinary complaints Neurologic: Reports syncope Endocrine: Endocrine: Reports palpitations [facility] Medical History Asthma COPD (chronic obstructive pulmonary disease) COPD (chronic obstructive pulmonary disease) CVA (cerebral vascular accident) Dyspnea Emphysema lung Emphysema of lung Essential hypertension Glaucoma Hernia History of pyloric channel ulcer Hydroureter, right Mild acid reflux Pernicious anemia Psoriasis Tachycardia Family History Father No problems noted. Mother No problems noted. Sister No problems noted. Sister No problems noted. Sister No problems noted. Sister No problems noted. Sister Cancer Son No problems noted. Surgical History H/O carotid endarterectomy (04/01/20) History of AAA (abdominal aortic aneurysm) repair Hx of shoulder surgery Hx of varicose vein stripping Social History Alcohol intake: never Patient Tobacco Use Status: Former Tobacco user Quit Date: 2019 Tobacco use type: Cigarette Cigarette Packs Per Day: 4 Cigarettes Per Day: 80.0 Years Smoked: 65 Smoked in Last 30 Days: No Use of substances other than those prescribed or required for medical reasons: No Advance Directives: Yes Advance Directives on File: Yes Advance Directives Date on File: 06/11/21 Meds Allergies Allergy/AdvReac Type Severity Reaction Status Date / Time No Known Allergies Allergy Verified 09/11/22 12:31 Active Medications: Current Medications Pharmacy Consult (Consult Rx Perform Med Rec) 1 each MISCELLANE ONCE PRN PRN Reason: Consult order Home Medications Medication Instructions Recorded Confirmed Last Taken Type atorvastatin 80 mg tablet 80 mg PO DAILY 04/18/20 09/11/22 Unknown History lisinopril 40 mg tablet 40 mg PO DAILY 04/29/21 09/11/22 Unknown History clopidogrel 75 mg tablet 75 mg PO DAILY 10/23/21 09/11/22 Unknown History latanoprost 0.005 % eye drops 1 drp ophthalmic (eye) BEDTIME 07/02/22 09/11/22 Unknown History ondansetron 4 mg disintegrating 4 mg PO Q8H PRN Nausea And Vomiting 09/11/22 09/11/22 Unknown History tablet Physical Exam Vital Signs and Narrative: Vital Signs: Last Vital Signs Temp 98.2 F 09/11/22 17:34 Pulse 92 09/11/22 22:08 Resp 13 09/11/22 22:08 BP 137/50 L 09/11/22 22:08 Pulse Ox 95 09/11/22 22:08 O2 Del Method 09/11/22 22:08 O2 Flow Rate 3 09/11/22 19:28 Oxygen Flow Rate 3 09/11/22 19:31 BMI result Body Mass Index 22.1 Elderly female lying in bed in no distress Neck supple, no JVD Regular rate and rhythm, S1-S2 heard Regular breath sounds bilaterally, no wheezing or crackles appreciated Abdomen soft nontender, no guarding, no rigidity Patient is awake, alert and oriented to self, place, time and person ; no focal motor deficit Psych: Normal mood No pedal edema Results Labs 09/11/22 16:14 09/11/22 16:14 Labs: Laboratory Results - last 24 hr 09/11/22 09/11/22 09/11/22 16:14 16:14 16:14 MCV 86.4 MCH 26.7 L MCHC 30.9 L RDW 15.7 Plt Count 270 D MPV 11.0 Immature Gran % (Auto) 0.4 Neut % (Auto) 86.6 H Lymph % (Auto) 7.9 L [place] % (Auto) 4.5 Eos % (Auto) 0.3 Baso % (Auto) 0.3 Lymph # (Auto) 0.6 L [place] # (Auto) 0.3 Eos # (Auto) 0.0 Baso # (Auto) 0.0 Abs Immat Gran (auto) 0.03 Absolute Neuts (auto) 6.4 Absolute Nucleated RBC 0.000 Nucleated RBC % (auto) 0.0 PT INR APTT Anion Gap 13 Estim Creat Clear Calc 50.2 Estimated GFR > 60 Random Glucose 123 H Calcium 8.8 Total Bilirubin 1.0 AST 11 ALT < 6 Alkaline Phosphatase 132 H Troponin I High Sens 6.3 Total Protein 6.5 Albumin 3.6 09/11/22 09/11/22 16:14 18:58 MCV MCH MCHC RDW Plt Count MPV Immature Gran % (Auto) Neut % (Auto) Lymph % (Auto) [place] % (Auto) Eos % (Auto) Baso % (Auto) Lymph # (Auto) [place] # (Auto) Eos # (Auto) Baso # (Auto) Abs Immat Gran (auto) Absolute Neuts (auto) Absolute Nucleated RBC Nucleated RBC % (auto) PT 15.9 H INR 1.4 H APTT 30.8 Anion Gap Estim Creat Clear Calc Estimated GFR Random Glucose Calcium Total Bilirubin AST ALT Alkaline Phosphatase Troponin I High Sens 6.0 Total Protein Albumin Imaging Radiologist's Impressions: Impressions Chest X-Ray 09/11/22 15:38 IMPRESSION: No acute pulmonary disease. No displaced fractures are seen. Cervical Spine CT 09/11/22 17:28 IMPRESSION: 1. Mild to moderate multilevel degenerative changes without acute abnormality or significant change. 2. Mild to moderate biapical pleural thickening and scarring with moderate centrilobular/paraseptal emphysema. Fleischner guidelines were followed. Head CT 09/11/22 17:28 IMPRESSION: No acute intracranial pathology. Assessment and Plan (1) Syncope: Status: Acute Plan This is a 77-year-old female with chronic hypoxemic respiratory failure due to COPD, essential hypertension, AAA repair on Eliquis who presents to the emergency department for evaluation of syncope. #. Syncope: With associated palpitations, dizziness and lightheadedness. Concerning for cardiogenic cause. Will admit with cardiac nurse. Consulted Cardiology, appreciate assistance. Obtaining orthostatic vital signs #. Essential hypertension: Continue home antihypertensives #. Chronic hypoxemic respiratory failure due to COPD: On baseline 2 L supplemental oxygen #. GERD: On PPI #. Status post AAA repair: On Eliquis Med rec pending DVT prophylaxis: On Eliquis Full code Cardiac diet Time Spent With Patient Time: Total time managing care of this patient today ____ minutes. Quality Stroke Does the patient have a stroke diagnosis?: No VTE Prior VTE?: No VTE Risk Level:: Medical - moderate - high VTE Device Contraindication: Treatment Not Indicated VTE Drug Contraindication: N/A - Med Ordered
[2022-09-12] VITALS (7 sets, daily range): BP systolic 126–150; BP diastolic 61–92; PULSE 68–90; RESP 14–20; TEMP 36.4–37; O2SAT 93–98; BMI 21.9
[2022-09-12 00:26] LABS: COVID-19 Test Negative (Negative); IDNOW Serial# 6674DD1D
[2022-09-12] MEDS: 0.9 % Sodium Chloride Flush 3 ML SYRINGE IVFLUSH ×4 (00:40→20:19)
[2022-09-12] MEDS: polyethylene glycoL 3350 17 GM POWD.PACK PO (00:40)
[2022-09-12] MEDS: Acetaminophen 325 MG TABLET 650 MG PO ×3 (03:00→20:17)
[2022-09-12 06:36] LABS: MANUAL DIFF FLAG NO
[2022-09-12 06:44] LABS: Basophils Percent Auto 0.2 % (0-2); Hematocrit 37.1 % (37.0-47.0); Hemoglobin 11.6 g/dl (12.0-16.0); Imm Gran Abs Auto 0.01 X10*3/uL (0.00-0.03); Imm Gran Pct Auto 0.2 % (0.0-0.4); Lymphocytes Absolute Auto 0.4 X10*3/uL (1.2-4.9); Lymphocytes Percent Auto 9.7 % (20-40); Mean Corpuscular HGB Conc 31.3 g/dl (31.0-35.0); Mean Corpuscular Hemoglobin 27.3 pg (27.0-33.0); Mean Corpuscular Volume 87.3 fL (80.0-98.0); Mean Platelet Volume 11.5 fL (9.4-12.3); Monocytes Absolute Auto 0.1 X10*3/uL (0.1-1.2); Monocytes Percent Auto 2.2 % (2-11); Neutrophils Absolute Auto 3.6 x10*3/uL (2.0-8.3); Neutrophils Percent Auto 87.7 % (45-73); Platelet Count 276 X10*3/uL (160-400); Red Blood Count 4.25 X10*6/uL (4.20-5.50); Red Cell Distribution Width 15.9 % (11.0-16.0); White Blood Count 4.1 X10*3/uL (4.8-10.8)
[2022-09-12 07:01] LABS: Anion Gap 16 (12-20); Blood Urea Nitrogen 18 mg/dL (9-16); Calcium 8.8 mg/dL (8.4-10.2); Carbon Dioxide 21 mmol/L (22-29); Chloride 109 mmol/L (96-108); Creatinine Clr Calc Pharmacy 51.4; Estimated Glomerular Filt Rate > 60; Glucose Random 155 mg/dL (60-115); Potassium 4.5 mmol/L (3.3-5.1); Sodium 141 mmol/L (135-145)
--- NOTE | 2022-09-12 07:41 | HO.PM.IMPN ---
Subjective Subjective Date of Service: 09/12/22 Interval History: being followed for syncope, denies chest pain, no palpitation, no lightheadedness or dizziness,, provide history of chest pain yesterday and also has history of intermittent chest discomfort with no associated shortness of breath or palpitations, lives alone at home with her dog , had 3 recent episodes of syncope, all episodes happened she standing, denies recent weight loss, no episodes of nausea vomiting diarrhea, no fevers, no chills. Review of Systems Review of Systems: Yes all other systems are reviewed and are negative Physical Exam Vital Signs: Vital Signs: Last Vital Signs Temp 98.6 F 09/12/22 02:51 Pulse 79 09/12/22 02:51 Resp 20 09/12/22 02:51 BP 141/92 H 09/12/22 02:51 Pulse Ox 98 09/12/22 02:51 O2 Del Method 09/12/22 02:51 O2 Flow Rate 2 09/12/22 02:51 Oxygen Flow Rate 3 09/11/22 19:31 BMI result Body Mass Index 21.9 Const: Other: General Frail elderly resting in bed, in no acute distress. Neck supple no JVD. CVS regular rate rhythm, Respiratory lungs clear to auscultation, no respiratory distress, no wheeze, no rhonchi. Gastrointestinal abdomen soft, nontender, bowel sounds audible, no guarding , no rigidity. Extremities no edema. left forearm in brace Neuro nonfocal , speech clear. Skin no rash psych appropriate affect Objective Data Active Medications Acetaminophen (Acetaminophen 325 Mg Tablet) 650 mg PO Q6H PRN PRN Reason: Pain, Mild (Pain Scale 1-3) Last Admin: 09/12/22 03:00 Dose: 650 mg Documented By: DINESH Melatonin (Melatonin 3 Mg Tablet) 6 mg PO BEDTIME PRN PRN Reason: Insomnia Ondansetron HCl (Ondansetron Hcl 4 Mg/2 Ml Vial) 4 mg IVPUSH Q8H PRN PRN Reason: Nausea and Vomiting Pharmacy Consult (Consult Rx Perform Med Rec) 1 each MISCELLANE ONCE PRN PRN Reason: Consult order Sodium Chloride (0.9 % Sodium Chloride Flush 3 Ml Syringe) 3 ml IVFLUSH [facility] Last Admin: 09/12/22 00:40 Dose: 3 ml Documented By: DIANNE Labs 09/12/22 06:13 09/12/22 06:13 Labs: Laboratory Results - last 24 hr 09/11/22 09/11/22 09/11/22 16:14 16:14 16:14 MCV 86.4 MCH 26.7 L MCHC 30.9 L RDW 15.7 Plt Count 270 D MPV 11.0 Immature Gran % (Auto) 0.4 Neut % (Auto) 86.6 H Lymph % (Auto) 7.9 L [place] % (Auto) 4.5 Eos % (Auto) 0.3 Baso % (Auto) 0.3 Lymph # (Auto) 0.6 L [place] # (Auto) 0.3 Eos # (Auto) 0.0 Baso # (Auto) 0.0 Abs Immat Gran (auto) 0.03 Absolute Neuts (auto) 6.4 Absolute Nucleated RBC 0.000 Nucleated RBC % (auto) 0.0 PT INR APTT Anion Gap 13 Estim Creat Clear Calc 50.2 Estimated GFR > 60 Random Glucose 123 H Calcium 8.8 Total Bilirubin 1.0 AST 11 ALT < 6 Alkaline Phosphatase 132 H Troponin I High Sens 6.3 Total Protein 6.5 Albumin 3.6 COVID-19 (DEVANTE) COVID-[facility] Clin Com 09/11/22 09/11/22 09/12/22 16:14 18:58 00:02 MCV MCH MCHC RDW Plt Count MPV Immature Gran % (Auto) Neut % (Auto) Lymph % (Auto) [place] % (Auto) Eos % (Auto) Baso % (Auto) Lymph # (Auto) [place] # (Auto) Eos # (Auto) Baso # (Auto) Abs Immat Gran (auto) Absolute Neuts (auto) Absolute Nucleated RBC Nucleated RBC % (auto) PT 15.9 H INR 1.4 H APTT 30.8 Anion Gap Estim Creat Clear Calc Estimated GFR Random Glucose Calcium Total Bilirubin AST ALT Alkaline Phosphatase Troponin I High Sens 6.0 Total Protein Albumin COVID-19 (DEVANTE) Negative COVID-19 Clin Com See Note 09/12/22 09/12/22 06:13 06:13 MCV 87.3 MCH 27.3 MCHC 31.3 RDW 15.9 Plt Count 276 MPV 11.5 Immature Gran % (Auto) 0.2 Neut % (Auto) 87.7 H Lymph % (Auto) 9.7 L [place] % (Auto) 2.2 Eos % (Auto) 0.0 Baso % (Auto) 0.2 Lymph # (Auto) 0.4 L [place] # (Auto) 0.1 Eos # (Auto) 0.0 Baso # (Auto) 0.0 Abs Immat Gran (auto) 0.01 Absolute Neuts (auto) 3.6 Absolute Nucleated RBC 0.000 Nucleated RBC % (auto) 0.0 PT INR APTT Anion Gap 16 Estim Creat Clear Calc 51.4 Estimated GFR > 60 Random Glucose 155 H Calcium 8.8 Total Bilirubin AST ALT Alkaline Phosphatase Troponin I High Sens Total Protein Albumin COVID-19 (DEVANTE) COVID-19 Clin Com Assessment and Plan (1) Syncope: Status: Acute (2) Abnormal ECG: Status: Acute Plan 77-year-old female with chronic hypoxemic respiratory failure due to COPD, essential hypertension, AAA repair on Eliquis who presents to the emergency department for evaluation of syncope. #.? Syncope: With associated palpitations, dizziness and lightheadedness.? 3 recent episodes of syncope, noted to have tachycardia with no drop in blood pressure, noted to have soft blood pressures on arrival? continue telemetry, history chronic intermittent chest pain, normal troponin, EKG showed T-wave inversion anterior lateral leads v2-v5, Prolonged QTC, no seizure-like activity, normal CT head, CT cervical spine and chest x-ray .? s/p cardiac catheterization on 10/07/2021 showing [id number] three-vessel coronary artery disease,no stents required, being medically managed.? case discussed with Cardiology will DC Isordil change lisinopril to 20 mg at bedtime, give IV fluid 1 L obtain echocardiogram # Prolonged QTC, likely due to scheduled Reglan,and as needed zofran, will change Reglan to 5mg as needed and follow EKG #.? Essential hypertension: soft blood pressures, follow BP, resume home medication lisinopril at low-dose 20 mg at bedtime and DC Isordil follow BP #.? Chronic hypoxemic respiratory failure due to COPD: On baseline 2 L supplemental oxygen #.? GERD: On PPI #.? Status post AAA repair: On Eliquis, Plavix and statins Med rec completed DVT prophylaxis:? On Eliquis Full code patient need continued inpatient hospitalization due to syncope with EKG changes requiring IV fluids and further workup. Time Spent With Patient Time: Total time managing care of this patient today ____ minutes. Quality Stroke Does the patient have a stroke diagnosis?: No VTE Prior VTE?: No VTE Risk Level:: Medical - moderate - high VTE Device Contraindication: Treatment Not Indicated VTE Drug Contraindication: N/A - Med Ordered
--- NOTE | 2022-09-12 10:00 | CA_ITS ---
Transthoracic Echocardiogram Patient (Last, First, Middle): Bridget Rabago, Gender: Female Date of : 1945 Age: 77 Procedure Date: 09/12/2022 Procedure Type: Transthoracic Echocardiogram Location: [facility] [place] Height: 162.56 cm Weight: 57.61 kg BSA: 1.61 m2 Heart Rate: 70 bpm BP: 142 / 70 mmHg Sql Server Dba Developer: SB Referring MD: Ava Craft MD [employer] Log[employer] Analyst: Dakota Jeong MD Symptoms: abnormal ekg Study Quality: Adequate w contrast ECG Rhythm: Sinus Conclusions: - 1. Normal LV systolic function with impaired relaxation filling pattern 2. Moderate aortic stenosis 3. Normal RV systolic pressure 4. No gross pericardial effusion Findings Procedure Information Contrast agent, definity, is being given per protocol without apparent complications. Left Ventricle Normal left ventricular size, thickness, and systolic function. The visually estimated ejection fraction is between 65-70%. Spectral Doppler is indicative of an impaired relaxation filling pattern. E/E prime ratio is between 8 and 15 consistent with indeterminate filling pressures. Right Ventricle Normal right ventricular cavity size and systolic function. Atria The left atrium is likely dilated. There is lipomatous hypertrophy of the interatrial septum. There is no evidence of interatrial shunt. The right atrium is normal in size. Aortic Valve There is mild calcification of the aortic valve. There is mild thickening of the aortic valve. There is moderate aortic valve stenosis. The mean gradient is 22 mmHg. The aortic valve area is 1.24 cm2. There is trace (trivial) aortic valve regurgitation. Mitral Valve There is mild anterior and posterior mitral leaflet thickening. There is moderate mitral annular calcification. There is mild mitral valve regurgitation. There is no mitral valve stenosis. Pulmonic Valve The pulmonic valve is likely normal. There is trace pulmonic valve regurgitation. Tricuspid Valve Normal tricuspid valve structure. There is mild tricuspid valve regurgitation. The right ventricular systolic pressure is normal. The right ventricular systolic pressure is 26 mmHg. Normal right atrial pressure. There is no evidence of pulmonary hypertension. Great Vessels All visible segments of the aorta are normal in size. The pulmonary artery was not well visualized. Venous The inferior vena cava is normal in size and collapses greater than 50% with inspiration. Pericardium/Pleural There is no evidence of pericardial effusion. Prior Study Comparison Changes noted compared to prior study dated: 08/19/2021. aortic stenosis is in the moderate range Measurements 2D Linear Measurements IVSd: 0.83 0.6-0.9/0.6-1.0 cm LVIDd: 4.44 3.9-5.3/4.2-5.9 cm LVIDd Index: 2.76 2.4-3.2/2.2-3.1 cm/m2 LVIDs: 3.11 2.0-3.6 cm LVPWd: 0.71 0.7-1.1 cm LA Diam: 3.80 2.7-3.8/3.0-4.0 cm LAIDs Index: 2.36 1.5-2.3 cm/m2 LV Mass: 131.82 67-162/88-224 g LV Mass Index: 81.87 43-95/49-115 g/m2 LVOT Diam: 2.00 3.0+(-)1.3 cm 2D Systolic Function EF 4C: 78.90 >55% EF 2C: 75.20 >55% EF BiP: 76.40 >55% Mitral Valve MV Pk E: 1.12 MV PK A: 1.30 MV Decel Time: 257.00 E/A: 0.90 E'Lateral: 7.51 E'Medial: 5.22 E/E' Med: 21.50 E/E' Lat: 14.90 PHT: 75.00 MVA PHT: 2.93 Decel Young: 4.34 Aortic Valve AoV Pk Leonardo: 3.16 AoV Mn Leonardo: 2.15 AoV VTI: 0.67 AoV Pk Grad: 40.00 Aov Mn Grad: 22.00 PHILOMENA Cont.VTI: 1.24 AI Pk Leonardo: 3.83 AI Young: 1.94 LVOT LVOT Pk Leonardo: 1.43 LVOT Mn Leonardo: 0.97 LVOT VTI: 0.27 LVOT Pk Grad: 8.00 LVOT Mn Grad: 4.00 LVOT Diam: 2.00 LVOT Area: 3.14 Diastolic Function MV Pk E: 1.12 MV Pk A: 1.30 E/A: 0.90 E'Medial: 5.22 E/E' Med: 21.50 E' Laterial: 7.51 E/E' Lat: 14.90 Right Ventricle TAPSE (mm): 22.20 TVS' Leonardo: 11.50 Tricuspid Valve TR Pk Leonardo: 2.39 TR Pk Grad: 23.00 RA Press: 3.00 RVSP: 26.00 Great Vessels Aorta Sinus of Valsalva: 2.40 2.0-3.5 cm Ao Asc: 2.80 2.1-3.4 cm Pulmonary Valve PV Pk Leonardo: 0.90 Peak PV Grad: 3.00 Updated in Other Vendor System with Status of Final Dakota Jeong MD electronically signed on 09/13/2022 10:21:47 AM with status of Final
[2022-09-12] MEDS: Lipase/Prot/Amylase 24/76/120K 1 CAP CAPSULE.DR PO ×3 (10:05→20:17)
[2022-09-12] MEDS: Atorvastatin Calcium 80 MG TABLET PO (10:05)
[2022-09-12] MEDS: Apixaban 5 MG TABLET PO ×2 (10:05→20:17)
--- NOTE | 2022-09-12 10:36 | MHC.CM.PN ---
[facility]AN DELIVERED PT LIVES WITH S/O IN [facility]. HAS SENIOR APPLICATION PROGRAMMER SERVICES 8 H/WEEK. USES ROLLATOR AND CANE NEEDED FOR MOBILITY. ON 2L/MIN 02 AT BASELINE AND HAS NEBULIZER. VENDOR IS [employer]. +COVID MARÍA ELENA, UNSURE OF HOW MANY. +HCP ON FILE. PCP DR. ANDREA PIRES DP: HOME, RESUME SENIOR APPLICATION PROGRAMMER SERVICES. SENIOR APPLICATION PROGRAMMER ANDRE WILL TRANSPORT
--- NOTE | 2022-09-12 12:28 | P.CONCA_ITS ---
History of Present Illness History of Present Illness Date of Service: 09/12/22 Requesting physician: Ava Craft Consult reason: other (Syncope) Chief complaint: Syncope Narrative: I was consulted to see Bridget in cardiology consultation today for syncope. She is a 77-year-old female with complicated past medical history with diffuse vas cular disease. She has prior history of COPD which is advanced, diffuse coronary artery disease which is moderate and nonobstructive, AAA repair in the past on chronic anticoagulation. Patient says she has had 3 episodes of syncope in the last 2-3 weeks. The 1st episode was while she was in bank she was standing other patellar and then she got severely lightheaded, her BUS SYSTEM OPERATOR helped it to the chair but she then passed out. Passing out episode short. There were no seizure-like activity or bowel bladder incontinence. A 2nd episode was while she was standing and doing her dishes. She passed out. Again in prolonged standing position. She came to the emergency room yesterday as she was going to the bathroom and then she got up and then she got lightheaded and then she passed out. BUS SYSTEM OPERATOR call the ambulance. She had reported some chest pressure/palpitation prior to passing out. This is unclear. She was noted to have low blood pressure on admission. EKG showed some T-wave inversion the anterior lead. Her troponins are negative. She has no obvious orthostatic drop in her blood pressure but the heart rate does go up. She has had no arrhythmias overnight. Cardiology consult was sought for further management plan. She is on lisinopril 40 mg at home. She is also on Plavix and Eliquis at home. Eliquis is apparently for vascular disease. Review of Systems Constitutional: Constitutional: Reports no additional constitutional complaints Eyes: Eyes: Reports no additional eye complaints Cardiovascular: Cardiovascular: Reports rapid heart rate, Reports lightheadedness and Reports Loss of Consciousness Respiratory: Respiratory: Reports no additional respiratory complaints Neurologic: Reports system reviewed and no additional complaints, except as documented PMFSH Past Medical History Medical History Asthma COPD (chronic obstructive pulmonary disease) COPD (chronic obstructive pulmonary disease) CVA (cerebral vascular accident) Dyspnea Emphysema lung Emphysema of lung Essential hypertension Glaucoma Hernia History of pyloric channel ulcer Hydroureter, right Mild acid reflux Pernicious anemia Psoriasis Tachycardia Family History Family History Father No problems noted. Mother No problems noted. Sister No problems noted. Sister No problems noted. Sister No problems noted. Sister No problems noted. Sister Cancer Son No problems noted. Surgical History Surgical History H/O carotid endarterectomy (04/01/20) History of AAA (abdominal aortic aneurysm) repair Hx of shoulder surgery Hx of varicose vein stripping Social History Social History Alcohol intake: never Patient Tobacco Use Status: Former Tobacco user Quit Date: 2019 Tobacco use type: Cigarette Cigarette Packs Per Day: 4 Cigarettes Per Day: 80.0 Years Smoked: 65 Second Hand Smoke Exposure: No Advance Directives Date on File: 06/11/21 service: No Current occupational status: retired [employer] Allergies Allergy/AdvReac Type Severity Reaction Status Date / Time No Known Allergies Allergy Verified 09/11/22 12:31 Active Medications: Current Medications Acetaminophen (Acetaminophen 325 Mg Tablet) 650 mg PO Q6H PRN PRN Reason: Pain, Mild (Pain Scale 1-3) Last Admin: 09/12/22 03:00 Dose: 650 mg Albuterol Sulfate (Albuterol Sulfate 90 Mcg 8 Gm Inhaler) 1 puff INHALE QID PRN PRN Reason: shortness of breath or wheezing Lipase/Protease/Amylase (Lipase/Prot/Amylase 24/76/120k 1 Cap Capsule.Dr) 1 cap PO TID [facility] Last Admin: 09/12/22 10:05 Dose: 1 cap Apixaban (Apixaban 5 Mg Tablet) 5 mg PO BID [facility] Last Admin: 09/12/22 10:05 Dose: 5 mg Atorvastatin Calcium (Atorvastatin Calcium 80 Mg Tablet) 80 mg PO DAILY [facility] Last Admin: 09/12/22 10:05 Dose: 80 mg Fluticasone/Vilanterol (Fluticasone/Vilanterol 100/25 Blst.W.Dev) 1 puff INHALE RDAILY [facility] Sodium Chloride (Ns) 1,000 mls @ 100 mls/hr IVCONT .Q10H [facility] Stop: 09/12/22 22:14 Latanoprost (Latanoprost 0.005 % Ophth Phoebe 2.5 Ml Drops) 1 drop EYE-BOTH BEDTIME ANDRIA Lisinopril (Lisinopril 20 Mg Tablet) 20 mg PO BEDTIME ANDRIA; Protocol Melatonin (Melatonin 3 Mg Tablet) 6 mg PO BEDTIME PRN PRN Reason: Insomnia Omeprazole (Omeprazole 20 Mg Capsule.Dr) 20 mg PO BID@0630,1630 [facility] Ondansetron HCl (Ondansetron Hcl 4 Mg/2 Ml Vial) 4 mg IVPUSH Q8H PRN PRN Reason: Nausea and Vomiting Pharmacy Consult (Consult Rx Perform Med Rec) 1 each MISCELLANE ONCE PRN PRN Reason: Consult order Sodium Chloride (0.9 % Sodium Chloride Flush 3 Ml Syringe) 3 ml IVFLUSH QSHIFT [facility] Last Admin: 09/12/22 10:06 Dose: 3 ml Home Medications Medication Instructions Recorded Confirmed Last Taken Type atorvastatin 80 mg tablet 80 mg PO DAILY 04/18/20 09/11/22 Unknown History lisinopril 40 mg tablet 40 mg PO DAILY 04/29/21 09/11/22 Unknown History clopidogrel 75 mg tablet 75 mg PO DAILY 10/23/21 09/11/22 Unknown History latanoprost 0.005 % eye drops 1 drp ophthalmic (eye) BEDTIME 07/02/22 09/11/22 Unknown History ondansetron 4 mg disintegrating 4 mg PO Q8H PRN Nausea And Vomiting 09/11/22 09/11/22 Unknown History tablet Physical Exam Vital Signs: Vital Signs: Last Vital Signs Temp 97.9 F 09/12/22 11:32 Pulse 71 09/12/22 11:32 Resp 18 09/12/22 11:32 BP 139/63 09/12/22 11:32 Pulse Ox 93 09/12/22 11:32 O2 Del Method 09/12/22 11:32 O2 Flow Rate 2 09/12/22 11:32 Oxygen Flow Rate 3 09/11/22 19:31 BMI result Body Mass Index 21.9 Const: General: cooperative, comfortable, no acute distress, alert and awake Nutritional Appearance: malnourished Orientation/consciousness: patient oriented x3 Limitations: no limitations HEENT: Head: Yes normocephalic and Yes atraumatic Neck: Neck: Yes trachea midline, Yes supple and Yes no JVD Chest: Chest palpation & inspection: abnormal inspection of the chest kyphotic and scoliotic Resp: Effort & Inspection: normal respiratory effort Auscultation: diminished lung sounds Cardio: Jugular venous distension: no JVD Palpation: normal PMI Rate: regular rate Rhythm: regular rhythm Heart sounds: S1 normal heart sound present, S2 normal heart sound present, no click, no gallops and Murmur heart sound present systolic early Skin: General skin exam: no rashes or lesions noted and ecchymosis Neuro: General: patient oriented x3 and no focal motor deficits Extrem: General: Yes no clubbing, cyanosis or edema Objective Labs and Meds 09/12/22 06:13 09/12/22 06:13 Lab results: Laboratory Results - last 24 hr 09/11/22 09/11/22 09/11/22 16:14 16:14 16:14 WBC 7.3 RBC 4.49 Hgb 12.0 Hct 38.8 MCV 86.4 MCH 26.7 L MCHC 30.9 L RDW 15.7 Plt Count 270 D MPV 11.0 Immature Gran % (Auto) 0.4 Neut % (Auto) 86.6 H Lymph % (Auto) 7.9 L [place] % (Auto) 4.5 Eos % (Auto) 0.3 Baso % (Auto) 0.3 Lymph # (Auto) 0.6 L [place] # (Auto) 0.3 Eos # (Auto) 0.0 Baso # (Auto) 0.0 Abs Immat Gran (auto) 0.03 Absolute Neuts (auto) 6.4 Absolute Nucleated RBC 0.000 Nucleated RBC % (auto) 0.0 PT INR APTT Sodium 142 Potassium 4.5 Chloride 106 Carbon Dioxide 28 Anion Gap 13 BUN 16 Creatinine 0.81 Estim Creat Clear Calc 50.2 Estimated GFR > 60 Random Glucose 123 H Calcium 8.8 Total Bilirubin 1.0 AST 11 ALT < 6 Alkaline Phosphatase 132 H Troponin I High Sens 6.3 Total Protein 6.5 Albumin 3.6 COVID-19 (DEVANTE) COVID-19 Clin Com 09/11/22 09/11/22 09/12/22 16:14 18:58 00:02 WBC RBC Hgb Hct MCV MCH MCHC RDW Plt Count MPV Immature Gran % (Auto) Neut % (Auto) Lymph % (Auto) [place] % (Auto) Eos % (Auto) Baso % (Auto) Lymph # (Auto) [place] # (Auto) Eos # (Auto) Baso # (Auto) Abs Immat Gran (auto) Absolute Neuts (auto) Absolute Nucleated RBC Nucleated RBC % (auto) PT 15.9 H INR 1.4 H APTT 30.8 Sodium Potassium Chloride Carbon Dioxide Anion Gap BUN Creatinine Estim Creat Clear Calc Estimated GFR Random Glucose Calcium Total Bilirubin AST ALT Alkaline Phosphatase Troponin I High Sens 6.0 Total Protein Albumin COVID-19 (DEVANTE) Negative COVID-19 Clin Com See Note 09/12/22 09/12/22 06:13 06:13 WBC 4.1 L RBC 4.25 Hgb 11.6 L Hct 37.1 MCV 87.3 MCH 27.3 MCHC 31.3 RDW 15.9 Plt Count 276 MPV 11.5 Immature Gran % (Auto) 0.2 Neut % (Auto) 87.7 H Lymph % (Auto) 9.7 L [place] % (Auto) 2.2 Eos % (Auto) 0.0 Baso % (Auto) 0.2 Lymph # (Auto) 0.4 L [place] # (Auto) 0.1 Eos # (Auto) 0.0 Baso # (Auto) 0.0 Abs Immat Gran (auto) 0.01 Absolute Neuts (auto) 3.6 Absolute Nucleated RBC 0.000 Nucleated RBC % (auto) 0.0 PT INR APTT Sodium 141 Potassium 4.5 Chloride 109 H Carbon Dioxide 21 L Anion Gap 16 BUN 18 H Creatinine 0.79 Estim Creat Clear Calc 51.4 Estimated GFR > 60 Random Glucose 155 H Calcium 8.8 Total Bilirubin AST ALT Alkaline Phosphatase Troponin I High Sens Total Protein Albumin COVID-19 (DEVANTE) COVID-19 Clin Com EKG shows normal sinus rhythm with T-wave inversion in anterior leads Imaging Radiologist's impression: Impressions Chest X-Ray 09/11/22 15:38 IMPRESSION: No acute pulmonary disease. No displaced fractures are seen. Cervical Spine CT 09/11/22 17:28 IMPRESSION: 1. Mild to moderate multilevel degenerative changes without acute abnormality or significant change. 2. Mild to moderate biapical pleural thickening and scarring with moderate centrilobular/paraseptal emphysema. Fleischner guidelines were followed. Head CT 09/11/22 17:28 IMPRESSION: No acute intracranial pathology. Assessment and Plan (1) Syncope: Status: Acute Syncope in this elderly woman appears to be orthostatic in nature related to related to hypovolemia due to poor oral intake as well as labile blood pressure given her significant diffuse vascular disease. Would avoid Isordil therapy. Airport Driver fluid overnight at 100 cc an hour. Monitor orthostatic vitals tomorrow. Would also cut down her lisinopril dose to 20 mg of moved to nighttime. Echocardiogram is been requested. Unlikely that this represents ischemic syncope. There are no arrhythmias overnight. Management of orthostatic hypertension was discussed in details with her. She understands and agrees. Continue Eliquis as per vascular recommendation needs to follow-up with vascular surgery about the same. Also Plavix for the same reason. Continue high- intensity statin therapy. Will sign of the case. Thank you for allowing me to partake in her care Time Spent With Patient Time: Total time managing care of this patient today ____ minutes. Procedures Date of Service Date of Service: 09/12/22
[2022-09-12] MEDS: 0.9 % Sodium Chloride 1,000 ML 100 ML IVCONT (15:06)
[2022-09-12] MEDS: Omeprazole 20 MG CAPSULE.DR PO (17:34)
[2022-09-12] MEDS: lisinopriL 20 MG TABLET PO (20:18)
[2022-09-12] MEDS: Melatonin 3 MG TABLET 6 MG PO (20:18)
[2022-09-12] MEDS: Latanoprost 0.005 % Ophth Sol 2.5 ML DROPS 1 DROP EYE-BOTH (20:19)
[2022-09-13] VITALS (8 sets, daily range): BP systolic 100–136; BP diastolic 50–61; PULSE 58–68; RESP 16–20; TEMP 36.1–36.7; O2SAT 92–98
[2022-09-13] MEDS: Omeprazole 20 MG CAPSULE.DR PO ×2 (06:07→17:44)
[2022-09-13] MEDS: Fluticasone/Vilanterol 100/25 BLST.W.DEV 1 PUFF INHALE (07:33)
--- NOTE | 2022-09-13 08:00 | ECG_ITS ---
Test Reason : abnormal ekg Blood Pressure : / mmHG Vent. Rate : 066 BPM Atrial Rate : 066 BPM P-R Int : 138 ms QRS Dur : 082 ms QT Int : 426 ms P-R-T Axes : 054 026 075 degrees QTc Int : 446 ms Sinus rhythm with Premature atrial complexes Low voltage QRS T wave abnormality, consider anterolateral ischemia Abnormal ECG When compared with ECG of 11-SEP-2022 17:30, No significant changes seen Referred By: Ava Craft Electronically Signed By:JENELLE JACOBS
[2022-09-13] MEDS: ondansetron HCL 4 MG/2 ML VIAL IVPUSH (09:24)
[2022-09-13] MEDS: 0.9 % Sodium Chloride Flush 3 ML SYRINGE IVFLUSH ×3 (09:27→20:47)
[2022-09-13] MEDS: Atorvastatin Calcium 80 MG TABLET PO (11:09)
[2022-09-13] MEDS: Apixaban 5 MG TABLET PO ×2 (11:09→20:46)
--- NOTE | 2022-09-13 12:27 | HO.PM.IMPN ---
Subjective Subjective Date of Service: 09/13/22 Interval History: Noted to have episode of vomiting while eating this am , likely choked on eggs, at present feeling better denies nausea, no shortness of breath no acute overnight events denies chest pain no palpitations, no lightheadedness, no dizziness, denies pain left arm. Review of Systems Review of Systems: Yes all other systems are reviewed and are negative Physical Exam Vital Signs: Vital Signs: Last Vital Signs Temp 98.1 F 09/13/22 11:38 Pulse 62 09/13/22 11:38 Resp 18 09/13/22 11:38 BP 135/61 09/13/22 11:38 Pulse Ox 95 09/13/22 11:38 O2 Del Method 09/13/22 11:38 O2 Flow Rate 2 09/13/22 11:38 Oxygen Flow Rate 3 09/11/22 19:31 BMI result Body Mass Index 21.9 Const: Other: General ? Frail elderly resting in bed, in no acute distress.? Neck? supple no JVD. CVS? regular rate rhythm, Respiratory lungs clear to auscultation, no respiratory distress, no wheeze, no rhonchi. Gastrointestinal abdomen soft, nontender, bowel sounds audible, no guarding , no rigidity. Extremities no? edema. left forearm in brace Neuro nonfocal , speech clear. Skin no rash psych appropriate affect Objective Data Active Medications Acetaminophen (Acetaminophen 325 Mg Tablet) 650 mg PO Q6H PRN PRN Reason: Pain, Mild (Pain Scale 1-3) Last Admin: 09/12/22 20:17 Dose: 650 mg Documented By: FRANCES Albuterol Sulfate (Albuterol Sulfate 90 Mcg 8 Gm Inhaler) 1 puff INHALE QID PRN PRN Reason: shortness of breath or wheezing Lipase/Protease/Amylase (Lipase/Prot/Amylase 24/76/120k 1 Cap Capsule.Dr) 1 cap PO TID [facility] Last Admin: 09/13/22 11:11 Dose: Not Given Documented By: ANIKA Non-Admin Reason: nausea, did not eat breakfast Apixaban (Apixaban 5 Mg Tablet) 5 mg PO BID [facility] Last Admin: 09/13/22 11:09 Dose: 5 mg Documented By: ANIKA Atorvastatin Calcium (Atorvastatin Calcium 80 Mg Tablet) 80 mg PO DAILY [facility] Last Admin: 09/13/22 11:09 Dose: 80 mg Documented By: ANIKA Fluticasone/Vilanterol (Fluticasone/Vilanterol 100/25 Blst.W.Dev) 1 puff INHALE RDAILY [facility] Last Admin: 09/13/22 07:33 Dose: 1 puff Documented By: DURAN Latanoprost (Latanoprost 0.005 % Ophth Phoebe 2.5 Ml Drops) 1 drop EYE-BOTH BEDTIME [facility] Last Admin: 09/12/22 20:19 Dose: 1 drop Documented By: FRANCES Lisinopril (Lisinopril 20 Mg Tablet) 20 mg PO BEDTIME [facility]; Protocol Last Admin: 09/12/22 20:18 Dose: 20 mg Documented By: FRANCES Melatonin (Melatonin 3 Mg Tablet) 6 mg PO BEDTIME PRN PRN Reason: Insomnia Last Admin: 09/12/22 20:18 Dose: 6 mg Documented By: FRANCES Omeprazole (Omeprazole 20 Mg Capsule.Dr) 20 mg PO BID@0630,1630 [facility] Last Admin: 09/13/22 06:07 Dose: 20 mg Documented By: FRANCES Ondansetron HCl (Ondansetron Hcl 4 Mg/2 Ml Vial) 4 mg IVPUSH Q8H PRN PRN Reason: Nausea and Vomiting Last Admin: 09/13/22 09:24 Dose: 4 mg Documented By: ANIKA Pharmacy Consult (Consult Rx Perform Med Rec) 1 each MISCELLANE ONCE PRN PRN Reason: Consult order Sodium Chloride (0.9 % Sodium Chloride Flush 3 Ml Syringe) 3 ml IVFLUSH QSHIFT [facility] Last Admin: 09/13/22 09:27 Dose: 3 ml Documented By: ANIKA Labs 09/12/22 06:13 09/12/22 06:13 Assessment and Plan (1) Syncope: Status: Acute (2) Abnormal ECG: Status: Acute Plan 77-year-old female with chronic hypoxemic respiratory failure due to COPD, essential hypertension, AAA repair on Eliquis who presents to the emergency department for evaluation of syncope. #.? Syncope: 3 recent episodes of syncope, home with lightheadedness dizziness and palpitations, likely due to hypotension and dehydration, since had soft blood pressures on arrival? history chronic intermittent chest pain, normal troponin, EKG showed T-wave inversion anterior lateral leads v2-v5, Prolonged QTC, repeat EKG today showed similar T-wave inversions echo showed EF 65-70%, impaired relaxation, moderate aortic stenosis, no seizure-like activity, normal CT head, CT cervical spine and chest x-ray . s/p cardiac catheterization on 10/07/2021 showing [id number] three-vessel coronary artery disease,no stents required, being medically managed.? adjusted blood pressure medication Isordil discontinued dose of lisinopril reduced to 20 mg tele monitor showed no arrhythmia patient this morning noted to have vomiting question due to choking on food will continue close clinical follow-up will discuss further treatment plan with Cardiology. # left ulna fracture obtain orthopedic consult, good pain control # Prolonged QTC, repeat EKG showed normal QTC,was likely due to scheduled Reglan,and as needed zofran, change Reglan to 5mg as needed #.? Essential hypertension: blood pressure improved, continue lisinopril 20 mg, Isordil discontinued. #.? Chronic hypoxemic respiratory failure due to COPD: On baseline 2 L supplemental oxygen #.? GERD: On PPI #.? Status post AAA repair: On Eliquis, Plavix and statins DVT prophylaxis:? On Eliquis Full code patient need continued inpatient hospitalization due to syncope with EKG changes requiring monitoring of blood pressure and pulse also need orthopedic eval for left ulna fracture. Time Spent With Patient Time: Total time managing care of this patient today ____ minutes. Quality Stroke Does the patient have a stroke diagnosis?: No VTE Prior VTE?: No VTE Risk Level:: Medical - moderate - high VTE Device Contraindication: Treatment Not Indicated VTE Drug Contraindication: N/A - Med Ordered
--- NOTE | 2022-09-13 12:52 | P.PNCA_ITS ---
Subjective Subjective Date of Service: 09/13/22 Principal diagnosis: Syncope Interval history: With IV fluids patient's heart rate has settled down. However today morning she said after eating she had vomiting episode. She denies any chest pain or shortness of breath. Echocardiogram shows normal LV systolic function with moderate aortic stenosis. Review of Systems Constitutional: Reports no additional constitutional complaints Cardiovascular: Reports no additional cardiovascular complaints Respiratory: Reports no additional respiratory complaints Gastrointestinal: Reports bloating and Reports vomiting Reports system reviewed and no additional complaints, except as documented Psychiatric: Reports no additional psychiatric complaints Endocrine: Reports no additional endocrine complaints Hematologic/Lymphatic: Reports no additional hematologic/lymphatic complaints Physical Exam Vital Signs: Last Vital Signs Temp 98.1 F 09/13/22 11:38 Pulse 62 09/13/22 11:38 Resp 18 09/13/22 11:38 BP 135/61 09/13/22 11:38 Pulse Ox 95 09/13/22 11:38 O2 Del Method 09/13/22 11:38 O2 Flow Rate 2 09/13/22 11:38 Oxygen Flow Rate 3 09/11/22 19:31 BMI result Body Mass Index 21.9 Const General: cooperative, comfortable, no acute distress, alert and awake Nutritional Appearance: malnourished Orientation/consciousness: patient oriented x3 Limitations: no limitations HEENT Head: Yes normocephalic and Yes atraumatic Neck Neck: Yes trachea midline, Yes supple and Yes no JVD Chest Chest palpation & inspection: abnormal inspection of the chest kyphotic and scoliotic Resp Effort & Inspection: normal respiratory effort Auscultation: diminished lung sounds Cardio Jugular venous distension: no JVD Palpation: normal PMI Rate: regular rate Rhythm: regular rhythm Heart sounds: S1 normal heart sound present, S2 normal heart sound present, no click, no gallops and Murmur heart sound present systolic mid Skin General skin exam: no rashes or lesions noted and ecchymosis Neuro General: patient oriented x3 and no focal motor deficits Extrem General: Yes no clubbing, cyanosis or edema Objective Labs and Meds 09/12/22 06:13 09/12/22 06:13 Progress Note: A&P Assessment and plan (1) Syncope: Status: Acute Assessment and Plan: Syncope appears to be orthostatic in nature with poor oral intake at home. Advised to increase oral intake. Blood pressure is still on the lower side. Further reduce lisinopril to 10 mg at nighttime. Continue to push oral fluids. Orthostatic precautions were discussed with the patient. There are no cardiac arrhythmias noted. (2) Aortic stenosis: Status: Acute Assessment and Plan: Aortic stenosis which appears to be moderate and not likely cause for her syncope. Advised to continue monitor clinically. No interventions required at this point time. Continue aggressive medical therapy as below. (3) Atherosclerotic cardiovascular disease: Status: Acute Assessment and Plan: CAD, nonobstructive by cardiac catheterization. Continue aggressive medical therapy. Blood pressure which is highly labile and will be difficult to control. Would allow for permissive higher blood pressure up to systolic 140 at home. Continue high-intensity statin therapy. Continue low-dose aspirin therapy. From cardiac perspective can be discharged. Will set up for outpatient follow- up Time Spent With Patient Time: Total time managing care of this patient today ____ minutes. Progress Note: Quality Stroke Does the patient have a stroke diagnosis?: No Procedures Date of Service Date of Service: 09/13/22
[2022-09-13] MEDS: Lipase/Prot/Amylase 24/76/120K 1 CAP CAPSULE.DR PO ×2 (17:44→20:46)
[2022-09-13] MEDS: Acetaminophen 325 MG TABLET 650 MG PO (18:55)
[2022-09-13] MEDS: lisinopriL 20 MG TABLET PO (20:46)
[2022-09-13] MEDS: Latanoprost 0.005 % Ophth Sol 2.5 ML DROPS 1 DROP EYE-BOTH (20:47)
[2022-09-13] MEDS: Melatonin 3 MG TABLET 6 MG PO (22:53)
[2022-09-14] VITALS (10 sets, daily range): BP systolic 107–142; BP diastolic 49–75; PULSE 53–108; RESP 12–18; TEMP 36.1–37.2; O2SAT 94–98
[2022-09-14] MEDS: Fluticasone/Vilanterol 100/25 BLST.W.DEV 1 PUFF INHALE (08:05)
--- NOTE | 2022-09-14 08:21 | PM.CNOR ---
History of Present Illness HPI Consult date: 09/14/22 Chief complaint: Syncope Narrative: Patient resting in bed comfortably. Orthopedics consulted for a distal ulna fx that occurred on 08/31/22 after she was attacked by a neighbors dog. She reports that she is experiencing little to no pain. Denies numbness or tingling. Left wrist is in a velcro wrist splint. No additional complaints. Review of Systems Review of Systems: Yes all other systems are reviewed and are negative PMFSH Past Medical History Medical History Asthma COPD (chronic obstructive pulmonary disease) COPD (chronic obstructive pulmonary disease) CVA (cerebral vascular accident) Dyspnea Emphysema lung Emphysema of lung Essential hypertension Glaucoma Hernia History of pyloric channel ulcer Hydroureter, right Mild acid reflux Pernicious anemia Psoriasis Tachycardia Family History Family History Father No problems noted. Mother No problems noted. Sister No problems noted. Sister No problems noted. Sister No problems noted. Sister No problems noted. Sister Cancer Son No problems noted. Surgical History Surgical History H/O carotid endarterectomy (04/01/20) History of AAA (abdominal aortic aneurysm) repair Hx of shoulder surgery Hx of varicose vein stripping Social History Social History Alcohol intake: never Patient Tobacco Use Status: Former Tobacco user Quit Date: 2019 Tobacco use type: Cigarette Cigarette Packs Per Day: 4 Cigarettes Per Day: 80.0 Years Smoked: 65 Second Hand Smoke Exposure: No Advance Directives Date on File: 06/11/21 service: No Current occupational status: retired Meds Allergies Allergy/AdvReac Type Severity Reaction Status Date / Time No Known Allergies Allergy Verified 09/11/22 12:31 Active Medications: Current Medications Acetaminophen (Acetaminophen 325 Mg Tablet) 650 mg PO Q6H PRN PRN Reason: Pain, Mild (Pain Scale 1-3) Last Admin: 09/13/22 18:55 Dose: 650 mg Albuterol Sulfate (Albuterol Sulfate 90 Mcg 8 Gm Inhaler) 1 puff INHALE QID PRN PRN Reason: shortness of breath or wheezing Lipase/Protease/Amylase (Lipase/Prot/Amylase 24/76/120k 1 Cap Capsule.) 1 cap PO TID [facility] Last Admin: 09/13/22 20:46 Dose: 1 cap Apixaban (Apixaban 5 Mg Tablet) 5 mg PO BID [facility] Last Admin: 09/13/22 20:46 Dose: 5 mg Atorvastatin Calcium (Atorvastatin Calcium 80 Mg Tablet) 80 mg PO DAILY [facility] Last Admin: 09/13/22 11:09 Dose: 80 mg Clopidogrel Bisulfate (Clopidogrel Bisulfate 75 Mg Tablet) 75 mg PO DAILY [facility] Fluticasone/Vilanterol (Fluticasone/Vilanterol 100/25 Blst.W.Dev) 1 puff INHALE RDAILY [facility] Last Admin: 09/14/22 08:05 Dose: 1 puff Latanoprost (Latanoprost 0.005 % Ophth Phoebe 2.5 Ml Drops) 1 drop EYE-BOTH BEDTIME [facility] Last Admin: 09/13/22 20:47 Dose: 1 drop Lisinopril (Lisinopril 10 Mg Tablet) 10 mg PO BEDTIME [facility]; Protocol Melatonin (Melatonin 3 Mg Tablet) 6 mg PO BEDTIME PRN PRN Reason: Insomnia Last Admin: 09/13/22 22:53 Dose: 6 mg Omeprazole (Omeprazole 20 Mg Capsule.) 20 mg PO BID@0630,1630 [facility] Last Admin: 09/14/22 06:38 Dose: Not Given Ondansetron HCl (Ondansetron Hcl 4 Mg/2 Ml Vial) 4 mg IVPUSH Q8H PRN PRN Reason: Nausea and Vomiting Last Admin: 09/13/22 09:24 Dose: 4 mg Pharmacy Consult (Consult Rx Perform Med Rec) 1 each MISCELLANE ONCE PRN PRN Reason: Consult order Sodium Chloride (0.9 % Sodium Chloride Flush 3 Ml Syringe) 3 ml IVFLUSH QSHIFT [facility] Last Admin: 09/13/22 20:47 Dose: 3 ml Home Medications Medication Instructions Recorded Confirmed Last Taken Type atorvastatin 80 mg tablet 80 mg PO DAILY 04/18/20 09/11/22 Unknown History lisinopril 40 mg tablet 40 mg PO DAILY 04/29/21 09/11/22 Unknown History clopidogrel 75 mg tablet 75 mg PO DAILY 10/23/21 09/11/22 Unknown History latanoprost 0.005 % eye drops 1 drp ophthalmic (eye) BEDTIME 07/02/22 09/11/22 Unknown History ondansetron 4 mg disintegrating 4 mg PO Q8H PRN Nausea And Vomiting 09/11/22 09/11/22 Unknown History tablet Physical Exam Vital Signs: Vital Signs: Last Vital Signs Temp 97.0 F 09/14/22 04:00 Pulse 53 09/14/22 08:06 Resp 18 09/14/22 08:06 BP 112/57 L 09/14/22 04:00 Pulse Ox 98 09/14/22 04:00 O2 Del Method 09/14/22 04:00 O2 Flow Rate 2 09/14/22 04:00 Oxygen Flow Rate 3 09/11/22 19:31 BMI result Body Mass Index 21.9 Const: General: cooperative, healthy appearing and no acute distress Resp: Effort & Inspection: normal respiratory effort and able to speak in complete sentences Cardio: Rate: regular rate Peripheral pulses: Peripheral pulses 2+ throughout GI: Palpation (GI): Soft to palpation Skin: Lesions: no lesions Rashes: no rashes Extrem: Other: Left wrist resolving ecchymosis on the volar aspect of the wrist extending to mid forearm. Two puncture wounds with eschar tissue over the dorsal aspect of the thumb. No signs of infection. Slight tenderness to palpation over the distal ulna. Able to flex and extend all digits. Sensation intact. Capillary refill is brisk. Results Labs 09/12/22 06:13 09/12/22 06:13 Labs: H & H 09/11/22 09/12/22 Range/Units 16:14 06:13 Hgb 12.0 11.6 L (12.0-16.0) g/dl Hct 38.8 37.1 (37.0-47.0) % Coagulation 09/11/22 Range/Units 16:14 INR 1.4 H (0.9-1.1) All other labs normal. Assessment and Plan (1) Aortic stenosis: Status: Acute (2) Syncope: Status: Acute (3) Raynauds disease: Status: Acute (4) Fracture, ulna, distal: Status: Inactive Velcro wrist splint for immobilization and comfort Gentle ROM of fingers No lifting greater than a cell phone or coffee cup with left hand Followup outpatient No additional orthopedic intervention needed at this time Time Spent With Patient Time: Total time managing care of this patient today ____ minutes. Procedures Date of Service Date of Service: 09/14/22
[2022-09-14] MEDS: Atorvastatin Calcium 80 MG TABLET PO (10:30)
[2022-09-14] MEDS: Apixaban 5 MG TABLET PO ×2 (10:30→20:02)
[2022-09-14] MEDS: 0.9 % Sodium Chloride Flush 3 ML SYRINGE IVFLUSH ×2 (10:30→15:30)
[2022-09-14] MEDS: Lipase/Prot/Amylase 24/76/120K 1 CAP CAPSULE.DR PO ×3 (10:30→20:02)
[2022-09-14] MEDS: Omeprazole 20 MG CAPSULE.DR PO ×2 (10:30→15:28)
[2022-09-14] MEDS: Clopidogrel Bisulfate 75 MG TABLET PO (10:30)
[2022-09-14] MEDS: Rabies Vaccine (PCEC)/PF 1 ML VIAL IM (12:17)
--- NOTE | 2022-09-14 14:18 | HO.PM.IMPN ---
Subjective Subjective Date of Service: 09/14/22 Interval History: feels better no further episodes of nausea or vomiting, denies shortness of breath ,no cough, is chronically on 2 L of home oxygen, no events overnight, soft blood pressure this morning, seen by Physical therapy they recommend short-term rehab, patient is due for rabies vaccine today since recently bit by a pit bull. Review of Systems Review of Systems: Yes all other systems are reviewed and are negative Physical Exam Vital Signs: Vital Signs: Last Vital Signs Temp 98.5 F 09/14/22 12:00 Pulse 107 H 09/14/22 12:52 Resp 16 09/14/22 12:00 BP 107/61 09/14/22 12:52 Pulse Ox 96 09/14/22 12:00 O2 Del Method 09/14/22 12:00 O2 Flow Rate 2 09/14/22 12:00 Oxygen Flow Rate 3 09/11/22 19:31 BMI result Body Mass Index 21.9 Const: Other: General ? Frail elderly resting in bed, in no acute distress.? Neck? supple no JVD. CVS? regular rate rhythm, Respiratory lungs clear to auscultation, no respiratory distress, no wheeze, no rhonchi. Gastrointestinal abdomen soft, nontender, bowel sounds audible, no guarding , no rigidity. Extremities no? edema. left forearm in brace,moving all fingers Neuro nonfocal , speech clear. Skin no rash psych appropriate affect Objective Data Active Medications Acetaminophen (Acetaminophen 325 Mg Tablet) 650 mg PO Q6H PRN PRN Reason: Pain, Mild (Pain Scale 1-3) Last Admin: 09/13/22 18:55 Dose: 650 mg Documented By: ANIKA Albuterol Sulfate (Albuterol Sulfate 90 Mcg 8 Gm Inhaler) 1 puff INHALE QID PRN PRN Reason: shortness of breath or wheezing Lipase/Protease/Amylase (Lipase/Prot/Amylase 24/76/120k 1 Cap Capsule.) 1 cap PO TID [facility] Last Admin: 09/14/22 10:30 Dose: 1 cap Documented By: TY Apixaban (Apixaban 5 Mg Tablet) 5 mg PO BID [facility] Last Admin: 09/14/22 10:30 Dose: 5 mg Documented By: TY Atorvastatin Calcium (Atorvastatin Calcium 80 Mg Tablet) 80 mg PO DAILY [facility] Last Admin: 09/14/22 10:30 Dose: 80 mg Documented By: TY Clopidogrel Bisulfate (Clopidogrel Bisulfate 75 Mg Tablet) 75 mg PO DAILY [facility] Last Admin: 09/14/22 10:30 Dose: 75 mg Documented By: TY Fluticasone/Vilanterol (Fluticasone/Vilanterol 100/25 Blst.W.Dev) 1 puff INHALE RDAILY [facility] Last Admin: 09/14/22 08:05 Dose: 1 puff Documented By: SAVANAH Latanoprost (Latanoprost 0.005 % Ophth Phoebe 2.5 Ml Drops) 1 drop EYE-BOTH BEDTIME [facility] Last Admin: 09/13/22 20:47 Dose: 1 drop Documented By: ANTRENO Lisinopril (Lisinopril 10 Mg Tablet) 10 mg PO BEDTIME [facility]; Protocol Melatonin (Melatonin 3 Mg Tablet) 6 mg PO BEDTIME PRN PRN Reason: Insomnia Last Admin: 09/13/22 22:53 Dose: 6 mg Documented By: EDGARDO Omeprazole (Omeprazole 20 Mg Capsule.Dr) 20 mg PO BID@0630,1630 [facility] Last Admin: 09/14/22 10:30 Dose: 20 mg Documented By: TY Ondansetron HCl (Ondansetron Hcl 4 Mg/2 Ml Vial) 4 mg IVPUSH Q8H PRN PRN Reason: Nausea and Vomiting Last Admin: 09/13/22 09:24 Dose: 4 mg Documented By: ANIKA Pharmacy Consult (Consult Rx Perform Med Rec) 1 each MISCELLANE ONCE PRN PRN Reason: Consult order Rabies Vaccine (Rabies Vaccine (Pcec)/Pf 1 Ml Vial) 1 ml IM .ONCE ONE Stop: 09/14/22 10:33 Last Admin: 09/14/22 12:17 Dose: 1 ml Documented By: TY Comments: left bicep Sodium Chloride (0.9 % Sodium Chloride Flush 3 Ml Syringe) 3 ml IVFLUSH QSHIFT [facility] Last Admin: 09/14/22 10:30 Dose: 3 ml Documented By: TY Labs 09/12/22 06:13 09/12/22 06:13 Assessment and Plan (1) Syncope: Status: Acute (2) Abnormal ECG: Status: Acute Plan 77-year-old female with chronic hypoxemic respiratory failure due to COPD, essential hypertension, AAA repair on Eliquis who presents to the emergency department for evaluation of syncope. #.? patient admitted to intermediate care unit with a diagnosis of syncope, associated with lightheadedness and dizziness , patient had 2 prior similar episodes in last several days, patient was noted to be hypotensive normal troponin, EKG showed T-wave inversion anterior lateral leads v2-v5, Prolonged QTC, repeat EKG today showed similar T-wave inversions , echo showed EF 65-70%, impaired relaxation, moderate aortic stenosis, no seizure-like activity, normal CT head, CT cervical spine and chest x-ray, s/p cardiac catheterization on 10/07/2021 showing [id number] three-vessel coronary artery disease,no stents required, being medically managed, patient was treated with IV fluids Isordil and high-dose lisinopril was discontinued tele monitor showed no arrhythmia, patient is feeling better with no recurrent episodes of lightheadedness or dizziness she was evaluated by Physical therapy they recommend short-term rehab therefore will discharge her to rehab on lisinopril 10 mg at bedtime.? # in regard to left ulna fracture patient seen by orthopedic surgeon and they recommend to continue Velcro wrist splint for immobilization and comfort, gentle range of motion of fingers, no lifting greater than a cell phone or a coffee cup with left hand and follow-up appointment with orthopedic surgery # Prolonged QTC, likely due to use of Reglan, repeat EKG showed improvement and QTC, will discontinue scheduled Reglan may use as needed zofran for nausea #.? Essential hypertension: blood pressure improved, continue lisinopril 10 mg at bedtime and Isordil discontinued. #.? Chronic hypoxemic respiratory failure due to COPD: On baseline 2 L supplemental oxygen, no acute COPD exacerbation noted #.? GERD: On PPI #.? Status post AAA repair: On Eliquis, Plavix and statins DVT prophylaxis:? On Eliquis Full code patient need continued inpatient hospitalization due to syncope with EKG changes requiring monitoring of blood pressure and pulse Time Spent With Patient Time: Total time managing care of this patient today ____ minutes. Quality Stroke Does the patient have a stroke diagnosis?: No VTE Prior VTE?: No VTE Risk Level:: Medical - moderate - high VTE Device Contraindication: Treatment Not Indicated VTE Drug Contraindication: N/A - Med Ordered
--- NOTE | 2022-09-14 14:58 | PM.DS ---
DS: Providers Provider Date of Service: 09/15/22 Date of admission: 09/11/22 22:51 Primary care physician: Unknown Physician Consults: 09/12/22 00:01 Consult to Cardiology Routine Consulting Provider: [facility] Reason for consultation: Syncope 09/13/22 12:28 Consult to Orthopedics Routine Consulting Provider: Cj Armijo Reason for consultation: distal ulna fracture DS: Diagnosis Discharge Diagnosis (1) Syncope: Status: Acute (2) Abnormal ECG: Status: Acute DS: Summary Hospital Course Hospital Course: Date of Service: 09/11/22 Chief Complaint: Syncope This is a 77-year-old female with chronic hypoxemic respiratory failure due to COPD, essential hypertension, AAA repair on Eliquis who presents to the emergency department for evaluation of syncope.? Patient states that when she was in the bathroom, she she tried to get up after urinating and felt dizzy, lightheaded.? Also had palpitations and soon after patient passed out.? As per the UNDERCOVER OPERATOR, unclear if the patient hit her head.? Patient was without consciousness.? No rhythmic jerking movement of extremities or tongue bite.? The piece he believes that the patient's heart rate was very fast.? Patient went to Dr. phillip and by the time the heart rate had normalized.? He sent her to the ER for further evaluation.? Patient states she has had 2-3 syncopal episodes in the last 2-3 weeks.? The 1st episode happened in the bank and the 2nd episode was while she was watching television.? Of note, patient had a dog bite on 08/31 when she was started with Augmentin.? At the time of my evaluation, patient without any complaints. 77-year-old female with chronic hypoxemic respiratory failure due to COPD, essential hypertension, AAA repair on Eliquis who presents to the emergency department for evaluation of syncope. #.?? patient admitted to? intermediate care unit with a diagnosis of syncope, associated with lightheadedness and dizziness , likely due to orthostatic hypotension, patient had 2 prior similar episodes in last several days, patient was noted to be hypotensive, normal troponin, EKG showed T-wave inversion? anterior lateral leads v2-v5, Prolonged QTC, repeat EKG showed similar T-wave inversions , echo showed EF 65-70%, impaired relaxation, moderate aortic stenosis,? no seizure-like activity, normal CT head, CT cervical spine and chest x-ray, s/p cardiac catheterization on 10/07/2021 showing [id number] three-vessel coronary artery disease, no stents required, she was treated with IV fluids, Isordil and high-dose lisinopril was discontinued, tele monitor showed no arrhythmia, patient is feeling better with no recurrent episodes of lightheadedness or dizziness she was evaluated by Physical therapy they recommend short-term rehab therefore will discharge to rehab on lisinopril 10 mg at bedtime.? patient was evaluated by Cardiology and they agreed with above treatment plan in regard to her nonobstructive coronary artery disease recommend to continue Plavix and statin. ? #? ? in regard to left ulna fracture? patient seen by orthopedic surgeon and they recommend to continue Velcro wrist splint for immobilization and comfort, gentle range of motion of fingers, no lifting greater than a cell phone or ? ? ? a coffee cup with left hand and follow-up appointment with orthopedic surgery. #? ? Prolonged QTC,? likely due to use of Reglan, repeat EKG showed improvement in QTC, discontinued scheduled Reglan, may use as needed zofran for nausea. ? ? ? #.? Essential hypertension: blood pressure improved, continue lisinopril 10 mg at bedtime. #.? Chronic hypoxemic respiratory failure due to COPD: On baseline 2 L supplemental oxygen, no acute COPD exacerbation noted. #.? GERD: On PPI #.? Status post AAA repair: On Eliquis, Plavix and statins . Time Spent with Patient Time attestation: Total time managing care of this patient today ____ minutes. Discharge coordination time: Greater than 30 minutes Quality: Safe Use of Opioids Does Pt have an Active Cancer Diagnosis on the Problem List?: No Quality: Stroke Does the patient have a stroke diagnosis?: No Physical Exam Vital Signs: Vital Signs: Last Vital Signs Temp 98.5 F 09/14/22 12:00 Pulse 107 H 09/14/22 12:52 Resp 16 09/14/22 12:00 BP 107/61 09/14/22 12:52 Pulse Ox 96 09/14/22 12:00 O2 Del Method 09/14/22 12:00 O2 Flow Rate 2 09/14/22 12:00 Oxygen Flow Rate 3 09/11/22 19:31 BMI result Body Mass Index 21.9 Const: Other: General ? Frail elderly resting in bed, in no acute distress.? Neck? supple no JVD. CVS? regular rate rhythm, Respiratory lungs clear to auscultation, no respiratory distress, no wheeze, no rhonchi. Gastrointestinal abdomen soft, nontender, bowel sounds audible, no guarding , no rigidity. Extremities no? edema. left forearm in brace,moving all fingers Neuro nonfocal , speech clear. Skin no rash psych appropriate affect Discharge Plan Discharge Anticipated Discharge Date/Time: 09/15/22 10:46 Patient Disposition: er [facility] Discharge Diagnosis: orthostatic syncope coronary artery disease Referrals: Physician,Unknown J [Primary Care Provider] - 1 Week Discharge Medications: New Senokot Extra Strength 17.2 mg tablet 17.2 mg PO BID PRN (Reason: constipation) Qty: 30 0RF docusate sodium [Colace] 100 mg capsule 100 mg PO BID Qty: 60 0RF lisinopril 10 mg Tablet 10 mg PO BEDTIME Qty: 30 0RF Protocol: Hold for SBP< HOLD for SBP < : 90 Continued Eliquis 5 mg tablet 5 mg PO BID Qty: 60 3RF ondansetron 4 mg tablet,disintegrating 4 mg PO Q8H PRN (Reason: Nausea And Vomiting) atorvastatin 80 mg tablet 80 mg PO DAILY Advair HFA 115-21 mcg/actuation HFA aerosol inhaler 2 puff inhalation Q12H 30 Days Qty: 12 11RF albuterol sulfate 90 mcg/actuation HFA aerosol inhaler 1 inh inhalation QID PRN (Reason: shortness of breath or wheezing) Qty: 8.5 11RF latanoprost 0.005 % drops 1 drp ophthalmic (eye) BEDTIME Rx Instructions: One eye drop in each eye at bedtime. clopidogrel 75 mg tablet 75 mg PO DAILY Creon 24,000-76,000 -120,000 unit capsule,delayed release(DR/EC) 1 cap PO TID Qty: 90 6RF omeprazole 20 mg capsule,delayed release(DR/EC) 20 mg PO BID 30 Days Qty: 60 6RF Discontinued isosorbide mononitrate 60 mg tablet extended release 24 hr 60 mg PO DAILY Qty: 90 3RF amoxicillin-pot clavulanate 875-125 mg tablet 1 tab PO BID Qty: 20 0RF lisinopril 40 mg tablet 40 mg PO DAILY metoclopramide HCl [Reglan] 10 mg tablet See Rx Instructions PO .tidac Qty: 120 6RF Rx Instructions: 1 qam, 1 qnoon, 2 qacsupper orally TIDAC; Discharge Orders: Discharge Order (Routine); Ordered 09/15/22 Ordered By: Ava Craft Diet: Low fat, low cholesterol Activity on Discharge: As tolerated Stand Alone Forms: Patient Portal Discharge page Care Plan Goals: syncope due to orthostatic hypotension blood pressure medication adjusted, blood pressures are stable prolonged QTC resolved. stop Reglan, use as needed reglan or Zofran for nausea vomiting left ulna fracture continue Velcro wrist splint for immobilization, gentle range of motion of fingers no lifting greater than a cell phone or a coffee cup with left hand follow-up with Orthopedic surgery nonobstructive coronary artery disease continue statin, plavix finish course of rabies shot Health Concerns: essential hypertension take medications as prescribed, continue 2 L of supplemental oxygen for chronic respiratory failure, on Eliquis Plavix and statins discuss home medications with PCP and Cardiology Plan of Treatment: outpatient follow-up with primary care physician, orthopedic surgeon and loss control manager Assessment: as above Patient Instructions: Constipation (ED), Syncope (ED)
--- NOTE | 2022-09-14 15:16 | MHC.CM.PN ---
per rounds pt eval pending pts disposition planning ,pt recommends str ,referrals made [facility] going for faye villavciencio dc tomorrow
[2022-09-14 15:34] LABS: IDNOW Serial# 16C4AD1C
[2022-09-14 15:35] LABS: COVID-19 Test Negative (Negative)
[2022-09-14] MEDS: lisinopriL 10 MG TABLET PO (20:02)
[2022-09-14] MEDS: Latanoprost 0.005 % Ophth Sol 2.5 ML DROPS 1 DROP EYE-BOTH (20:06)
[2022-09-14] MEDS: Melatonin 3 MG TABLET 6 MG PO (22:07)
[2022-09-15] MEDS: 0.9 % Sodium Chloride Flush 3 ML SYRINGE IVFLUSH ×2 (00:02→08:51)
[2022-09-15 03:25] VITALS: BP 139/58; PULSE 58; RESP 20; TEMP 37.1; O2SAT 99
[2022-09-15 07:25] VITALS: BP 117/61; PULSE 62; RESP 18; TEMP 37.3; O2SAT 93
[2022-09-15 08:17] VITALS: PULSE 54; RESP 18; O2SAT 93
[2022-09-15] MEDS: Fluticasone/Vilanterol 100/25 BLST.W.DEV 1 PUFF INHALE (08:17)
[2022-09-15] MEDS: Atorvastatin Calcium 80 MG TABLET PO (08:51)
[2022-09-15] MEDS: Apixaban 5 MG TABLET PO (08:51)
[2022-09-15] MEDS: Clopidogrel Bisulfate 75 MG TABLET PO (08:52)
[2022-09-15] MEDS: Lipase/Prot/Amylase 24/76/120K 1 CAP CAPSULE.DR PO (08:52)
[2022-09-15] MEDS: Acetaminophen 325 MG TABLET 650 MG PO (10:44)
[2022-09-15 11:06] VITALS: BP 123/58; PULSE 62; RESP 20; TEMP 36.7; O2SAT 95
--- NOTE | 2022-09-15 11:50 | MHC.CM.PN ---
Addendum entered by Elise Mauro 09/15/22 13:33: INSURANCE AUTH WAS OBTAINED BY [facility]. RN AWARE. HCP ANDRE NOTIFIED. TRANSPORT BOOKED FOR 2:30 PM VIA [facility] Original Note: DP: PT HAS BEEN MEDICALLY CLEARED FOR DC TO STR AT [facility]. RN AWARE. AWAITING AUTH FROM [facility].
== END 2022-09-15 14:44 | disposition skilled nursing facility (03) | DRG 312 ==
LOC: HO.ED 18:08 → HO.IMC 09-12 07:11 → HO.EDOVER 09-14 13:52 → HO.IMC 09-14 13:52
PROVIDERS: Admitting Provider Student in an Organized Health Care Education/Training Program; Emergency Provider Emergency Medicine Emergency Medical Services; PCP Internal Medicine Medical Oncology; Visit Provider Hospitalist
DX: I95.1 Orthostatic hypotension (principal); J96.11 Chronic respiratory failure with hypoxia; I10 Essential (primary) hypertension; I25.10 Atherosclerotic heart disease of native coronary artery without angina pectoris; K21.9 Gastro-esophageal reflux disease without esophagitis; J43.9 Emphysema, unspecified; R94.31 Abnormal electrocardiogram [ECG] [EKG]; E86.0 Dehydration; I35.0 Nonrheumatic aortic (valve) stenosis; I73.00 Raynaud's syndrome without gangrene; J45.909 Unspecified asthma, uncomplicated; Z20.822 Contact with and (suspected) exposure to COVID-19; Z99.81 Dependence on supplemental oxygen; Z79.01 Long term (current) use of anticoagulants; Z79.02 Long term (current) use of antithrombotics/antiplatelets; Z79.51 Long term (current) use of inhaled steroids; Z79.899 Other long term (current) drug therapy
CPT/HCPCS: 36415; 70450; 71045; 72125; 73110; 80048; 80053; 84484; 85025; 85610; 85730; 87635; 90675; 93005; 93306; 94640; 97162; 99222; 99285; J2405; J2930; Q9957

== ENCOUNTER 2022-10-16 08:30 | Outpatient (REF) | payer OTHER, MEDICAID, SELFPAY ==
--- NOTE | ~2022-10-16 | XR_ITS ---
EXAMINATION: XR WRIST, LEFT CLINICAL INFORMATION: Pain. Fracture. COMPARISON: Previous x-ray September 2022 TECHNIQUE: PA, lateral, and oblique views of the left wrist. FINDINGS: Transverse fracture of the distal ulnar shaft. There is increased lucency at the fracture site. There is increasing bony callus formation. Alignment not appreciably changed. No other fracture. Osteopenia. Arthritis at the first CHCF joint and trapezoid trapezium scaphoid joints. XR/XR wrist LT min 3V IMPRESSION: Increased lucency and bony callus formation at the transverse fracture of the distal ulnar shaft.
== END 2022-10-16 08:31 | disposition home or self-care (01) ==
LOC: HO.HOSX 08:30
PROVIDERS: Visit Provider Physician Assistant
DX: S52.202A Unspecified fracture of shaft of left ulna, initial encounter for closed fracture (principal)
CPT/HCPCS: 73110; 99212

== ENCOUNTER → 2022-10-27 14:41 | Outpatient (BNVA) | payer OTHER, MEDICAID, SELFPAY | PROVIDERS: PCP Internal Medicine Medical Oncology; Referring Provider Internal Medicine Medical Oncology; Visit Provider Internal Medicine | DX: I25.10 Atherosclerotic heart disease of native coronary artery without angina pectoris (principal); I63.231 Cerebral infarction due to unspecified occlusion or stenosis of right carotid arteries; I35.0 Nonrheumatic aortic (valve) stenosis; I10 Essential (primary) hypertension; R55 Syncope and collapse | CPT/HCPCS: 99212 ==

== ENCOUNTER 2022-11-12 14:35 | Outpatient (REF) | payer OTHER, MEDICAID, SELFPAY ==
--- NOTE | ~2022-11-12 | XR_ITS ---
EXAMINATION: XR WRIST, LEFT CLINICAL INFORMATION: Left wrist pain COMPARISON: Left wrist 10/16/2022 TECHNIQUE: PA, lateral, and oblique views of the left wrist. FINDINGS: There is a transverse fracture line along the distal ulna with callus formation similar to previous study from 10/16/2022. There is loss of radioulnar carpal joint space. No bony erosive changes. There is diffuse osteopenia. The soft tissues are normal XR/XR wrist LT min 3V IMPRESSION: Healing left distal fibular fracture.
== END 2022-11-12 14:36 | disposition home or self-care (01) ==
LOC: HO.HOSX 14:35
PROVIDERS: PCP Internal Medicine Medical Oncology; Visit Provider Physician Assistant
DX: S52.202D Unspecified fracture of shaft of left ulna, subsequent encounter for closed fracture with routine healing (principal); X58.XXXD Exposure to other specified factors, subsequent encounter
CPT/HCPCS: 73110; 99212

== ENCOUNTER 2022-12-11 09:00 | Outpatient (RCR) | payer OTHER, MEDICAID, SELFPAY | END 2022-12-25 14:30 | disposition home or self-care (01) | LOC: HO.OT 09:00 | PROVIDERS: PCP Internal Medicine Medical Oncology; Visit Provider Physician Assistant | DX: S52.502D Unspecified fracture of the lower end of left radius, subsequent encounter for closed fracture with routine healing (principal) | CPT/HCPCS: 97110; 97166; 97760 ==

== ENCOUNTER 2022-12-14 10:17 | Outpatient (REF) | payer OTHER, MEDICAID, SELFPAY ==
--- NOTE | ~2022-12-14 | US_ITS ---
EXAMINATION: US EXTRACRANIAL CAROTID DUPLEX, BILATERAL CLINICAL INFORMATION: Cerebral infarction. COMPARISON: 10/22/2021 TECHNIQUE: Real-time ultrasound and Doppler techniques (integrating B-mode 2-D vascular images, Doppler spectral analysis and color-flow Doppler imaging) were utilized to interrogate the extracranial carotid arteries, the vertebral arteries and proximal subclavian arteries bilaterally. The degree of stenosis is determined by criteria similar to NASCET. FINDINGS: RIGHT SIDE: 1. There is minimal atherosclerotic plaque seen in the bifurcation/proximal ICA region. 2. The common carotid artery PSV proximally is 135 cm/s and distally 60 cm/s. 3. The proximal internal carotid artery velocities are 97 cm/s systolic and 14 cm/s diastolic. 4. The proximal external carotid artery PSV is 93 cm/s. 5. The vertebral artery shows antegrade flow. 6. The subclavian artery velocity is mildly elevated at 226 cm/s. LEFT SIDE: 1. There is mild atherosclerotic plaque seen in the bifurcation/proximal ICA region. 2. The common carotid artery PSV proximally is 169 cm/s and distally 82 cm/s. 3. The proximal internal carotid artery velocities are 80 cm/s systolic and 17 cm/s diastolic. 4. The proximal external carotid artery PSV is 61 cm/s. 5. The vertebral artery shows antegrade flow. 6. The subclavian artery waveforms are normal. US/US carotid duplex BI IMPRESSION: . RIGHT: Minimal, non-hemodynamically significant stenosis of the proximal right internal carotid artery corresponding to a 0-49% stenosis by velocity criteria. There is also a right mild subclavian stenosis present. 2. LEFT: Minimal, non-hemodynamically significant stenosis of the proximal left internal carotid artery corresponding to a 0-49% stenosis by velocity criteria. 3. There is no significant change in the severity of disease when compared to the previous study dated 10/22/2021.
== END 2022-12-14 10:18 | disposition home or self-care (01) ==
LOC: HO.US 10:17
PROVIDERS: PCP Internal Medicine Medical Oncology; Visit Provider Surgery Vascular Surgery
DX: I63.231 Cerebral infarction due to unspecified occlusion or stenosis of right carotid arteries (principal)
CPT/HCPCS: 93880

== ENCOUNTER 2022-12-18 09:04 | Outpatient (REF) | payer OTHER, MEDICAID, SELFPAY ==
--- NOTE | ~2022-12-18 | XR_ITS ---
EXAMINATION: XR WRIST, LEFT CLINICAL INFORMATION: Left wrist pain. COMPARISON: Left wrist 11/12/2022, 10/16/2022, 09/13/2022, 08/31/2022 and 07/10/2020. TECHNIQUE: PA, lateral, and oblique views of the left wrist. FINDINGS: Again seen, is a distal ulnar transverse fracture with some healing with unchanged appearance when compared to the prior exam. Mild degenerative changes are seen at the radiocarpal joint. Moderate degenerative changes are seen at the 1st and 2nd HALFWAY joint with sclerosis and osteophytes. Degenerative changes are present also at the 1st MCP joint and 5th MCP joint. 5th metacarpal head deformity secondary to prior fracture seen on the 2019 study. XR/XR wrist LT min 3V IMPRESSION: Continued healing distal ulnar fracture. Degenerative changes as described above.
== END 2022-12-18 09:05 | disposition home or self-care (01) ==
LOC: HO.HOSX 09:04
PROVIDERS: Visit Provider Physician Assistant
DX: S52.202A Unspecified fracture of shaft of left ulna, initial encounter for closed fracture (principal); R60.0 Localized edema; J43.2 Centrilobular emphysema
CPT/HCPCS: 73110; 99212

== ENCOUNTER 2022-12-21 07:57 | Outpatient (REF) | payer OTHER, MEDICAID, SELFPAY ==
[2022-12-21 08:14] LABS: MANUAL DIFF FLAG NO
[2022-12-21 08:24] LABS: Basophils Percent Auto 0.7 % (0-2); Eosinophils Absolute Auto 0.1 X10*3/uL (0.0-0.4); Eosinophils Percent Auto 2.6 % (0-4); Hematocrit 37.4 % (37.0-47.0); Hemoglobin 11.6 g/dl (12.0-16.0); Imm Gran Abs Auto 0.01 X10*3/uL (0.00-0.03); Imm Gran Pct Auto 0.2 % (0.0-0.4); Lymphocytes Absolute Auto 1.1 X10*3/uL (1.2-4.9); Lymphocytes Percent Auto 20.7 % (20-40); Mean Corpuscular Hemoglobin 27.1 pg (27.0-33.0); Mean Corpuscular Volume 87.4 fL (80.0-98.0); Mean Platelet Volume 11.2 fL (9.4-12.3); Monocytes Absolute Auto 0.4 X10*3/uL (0.1-1.2); Neutrophils Absolute Auto 3.7 x10*3/uL (2.0-8.3); Neutrophils Percent Auto 67.8 % (45-73); Platelet Count 226 X10*3/uL (160-400); Red Blood Count 4.28 X10*6/uL (4.20-5.50); Red Cell Distribution Width 14.4 % (11.0-16.0); White Blood Count 5.5 X10*3/uL (4.8-10.8)
[2022-12-21 09:17] LABS: Alanine Aminotransferase 9 U/L (0-31); Albumin Level 3.9 g/dL (3.5-5.0); Alkaline Phosphatase 90 U/L (39-117); Anion Gap 11 (12-20); Aspartate Amino Transferase 16 U/L (5-31); Bilirubin Total 0.6 mg/dL (0.0-1.0); Blood Urea Nitrogen 16 mg/dL (9-16); Calcium 9.1 mg/dL (8.4-10.2); Carbon Dioxide 26 mmol/L (22-29); Chloride 110 mmol/L (96-108); Cholesterol 153 mg/dL; Estimated Glomerular Filt Rate > 60; Glucose Fasting 100 mg/dL (60-99); HDL Cholesterol 65 mg/dL; LDL Cholesterol Calculated 75 mg/dl; Sodium 143 mmol/L (135-145); Total Protein 6.5 g/dL (6.5-8.0); Triglycerides 65 mg/dL
[2022-12-21 09:32] LABS: Vitamin B12 < 148 pg/mL (200-900)
== END 2022-12-21 07:58 | disposition home or self-care (01) ==
LOC: HO.LAB 07:57
PROVIDERS: Visit Provider Internal Medicine Medical Oncology
DX: I10 Essential (primary) hypertension (principal); Z86.39 Personal history of other endocrine, nutritional and metabolic disease
CPT/HCPCS: 36415; 80053; 80061; 82607; 85025

== ENCOUNTER → 2022-12-31 12:50 | Outpatient (BNVA) | payer OTHER, MEDICAID, SELFPAY | PROVIDERS: PCP Internal Medicine Medical Oncology; Visit Provider Nurse Practitioner | DX: K59.04 Chronic idiopathic constipation (principal); K21.9 Gastro-esophageal reflux disease without esophagitis; I71.40 Abdominal aortic aneurysm, without rupture, unspecified; Z98.890 Other specified postprocedural states | CPT/HCPCS: 99212 ==

== ENCOUNTER 2023-01-01 15:02 | Outpatient (REF) | payer OTHER, SELFPAY ==
[2023-01-01 15:19] LABS: MANUAL DIFF FLAG NO
[2023-01-01 16:18] LABS: Basophils Percent Auto 0.7 % (0-2); Eosinophils Absolute Auto 0.2 X10*3/uL (0.0-0.4); Eosinophils Percent Auto 3.8 % (0-4); Hematocrit 36.7 % (37.0-47.0); Hemoglobin 11.2 g/dl (12.0-16.0); Imm Gran Abs Auto 0.03 X10*3/uL (0.00-0.03); Imm Gran Pct Auto 0.5 % (0.0-0.4); Lymphocytes Absolute Auto 1.5 X10*3/uL (1.2-4.9); Lymphocytes Percent Auto 26.1 % (20-40); Mean Corpuscular HGB Conc 30.5 g/dl (31.0-35.0); Mean Corpuscular Volume 88.4 fL (80.0-98.0); Mean Platelet Volume 11.8 fL (9.4-12.3); Monocytes Absolute Auto 0.5 X10*3/uL (0.1-1.2); Monocytes Percent Auto 8.4 % (2-11); Neutrophils Absolute Auto 3.5 x10*3/uL (2.0-8.3); Neutrophils Percent Auto 60.5 % (45-73); Platelet Count 255 X10*3/uL (160-400); Red Blood Count 4.15 X10*6/uL (4.20-5.50); Red Cell Distribution Width 14.5 % (11.0-16.0); White Blood Count 5.8 X10*3/uL (4.8-10.8)
[2023-01-05 20:09] LABS: Intrinsic Factor Antibodies Negative (Negative)
== END 2023-01-01 15:03 | disposition home or self-care (01) ==
LOC: HO.LAB 15:02
PROVIDERS: PCP Internal Medicine Medical Oncology; Visit Provider Internal Medicine Medical Oncology
DX: I65.21 Occlusion and stenosis of right carotid artery (principal); D50.9 Iron deficiency anemia, unspecified
CPT/HCPCS: 36415; 85025; 86340

== ENCOUNTER 2023-01-15 08:19 | Outpatient (REF) | payer OTHER, SELFPAY ==
--- NOTE | ~2023-01-15 | CT_ITS ---
EXAMINATION: CT ABDOMEN AND PELVIS WITH CONTRAST CLINICAL INFORMATION: Abdominal aortic aneurysm. COMPARISON: CT abdomen pelvis without IV contrast 04/08/2022 and 04/30/2021. TECHNIQUE: Multidetector volumetric images were obtained from the superior aspect of the liver through the pubic symphysis following administration 85 mL of Omnipaque 350 intravenous contrast. Sagittal and coronal reformatted images were obtained on the technologist's workstation. Oral contrast: No This CT examination was performed using dose optimization techniques as appropriate, variously including the following: *Automated exposure control *Adjustment of mA and/or kV according to patient size (this includes techniques or standardized protocols for targeted exams where dose is matched to indication/reason for exam; i.e. extremities or head) *Use of iterative reconstruction technique DLP: 234 mGy-cm. FINDINGS: LUNG BASES: The lung bases are clear. The heart size is normal. There is a small hiatal hernia. LIVER, GALLBLADDER, AND BILIARY TREE: The liver is normal size with mild lobulation but normal density. No focal lesion or intrahepatic ductal dilatation seen. The gallbladder is unremarkable with no evidence of radiopaque gallstones, gallbladder wall thickening, or obvious pericholecystic inflammatory changes. PANCREAS: Unremarkable. SPLEEN: Unremarkable. ADRENAL GLANDS: Unremarkable. KIDNEYS AND URETERS: The kidneys are normal in size, shape, and attenuation. There is a focal hypodensity in the right kidney, upper pole, likely scarring with slight loss of upper pole right lung volume loss. It has been unchanged since the last 2 CT exams dating to 2020. The density appears unchanged to previous exam from 04/30/2021. BLADDER: Unremarkable. GASTROINTESTINAL TRACT: There is no diverticula. Stool and gas seen throughout the colon without any distention. There is no diverticulitis. The diverticula are most prominent in the sigmoid colon. No free air or inflammatory process seen. Appendix is normal caliber. ABDOMINAL WALL: No significant hernia is appreciated. LYMPH NODES: Normal. VASCULAR: There is a mid abdominal aortic to common iliac stent graft in place. The left graft is more hypodense on the right side, likely from thrombus and occlusion. There is a known aneurysmal dilatation of mid abdominal aorta with circumferential thrombus measuring 3.7 x 3.3 cm. PELVIC VISCERA: There is no free air or free fluid. OSSEOUS STRUCTURES: No aggressive lytic or sclerotic process seen. There is degenerative facet joint arthropathy lower lumbar spine. CT/CT abdomen pelvis w IV con IMPRESSION: 1. Stable mid abdominal aortic aneurysm with a stent graft in place. Occluded left iliac stent graft. 2. Colonic diverticulosis without diverticulitis. 3. Small hiatal hernia. 4. Loss of right lung volume with upper pole infarct. These findings are unchanged to 2020. Fleischner guidelines were followed.
== END 2023-01-15 08:20 | disposition home or self-care (01) ==
LOC: HO.CT 08:19
PROVIDERS: Visit Provider Surgery Vascular Surgery
DX: I71.40 Abdominal aortic aneurysm, without rupture, unspecified (principal)
CPT/HCPCS: 74177; Q9967

== ENCOUNTER 2023-01-18 14:44 | Outpatient (REF) | payer OTHER, SELFPAY ==
--- NOTE | ~2023-01-18 | MM_ITS ---
EXAMINATION: MM SCREENING DIGITAL BREAST TOMOSYNTHESIS, BILATERAL CLINICAL INFORMATION: Screening. Asymptomatic. The lifetime risk of breast cancer based on the Tyrer-Cuzick Model is 2.2%. COMPARISON: Mammography: This study is compared with prior exams dating back to 2016. TECHNIQUE: Digital breast tomosynthesis is performed in both the craniocaudal and mediolateral oblique views along with computer-aided detection (CAD). Synthesized 2D images are generated from the tomosynthesis. FINDINGS: There are scattered areas of fibroglandular density (ACR BI-RADS breast composition Category b). There are no significant masses, abnormal calcifications, or other abnormalities. There are few, coarse, benign calcifications in the left breast. MM/MM tomosynthesis screening BI IMPRESSION: No mammographic evidence of malignancy. ASSESSMENT: BI-RADS BI-RADS 2 - Benign Findings RECOMMENDATION: Routine annual mammography screening. 1 year F/U This examination should not preclude the clinical evaluation of a suspicious palpable abnormality. This patient's information was entered into a reminder system with a target due date for their next mammogram.
== END 2023-01-18 14:45 | disposition home or self-care (01) ==
LOC: HO.MAMMO 14:44
PROVIDERS: PCP Internal Medicine Medical Oncology; Visit Provider Internal Medicine Medical Oncology
DX: Z12.31 Encounter for screening mammogram for malignant neoplasm of breast (principal)
CPT/HCPCS: 77063; 77067

== ENCOUNTER → 2023-01-18 15:00 | Outpatient (BNV) | payer OTHER, SELFPAY | PROVIDERS: PCP Internal Medicine Medical Oncology; Visit Provider Radiology Diagnostic Radiology | DX: Z12.31 Encounter for screening mammogram for malignant neoplasm of breast (principal) | CPT/HCPCS: 77063; 77067 ==

== ENCOUNTER 2023-01-19 14:45 | Outpatient (AMB) | payer OTHER, SELFPAY ==
[2023-01-19 14:46] VITALS: BMI 21.1
--- NOTE | 2023-01-19 14:46 | MHC.OFFVIS ---
Intake Vital Signs 01/19/23 14:46 Height 5 ft 4 in Weight 123 lb BMI 21.1 Intake Visit Reasons: 1 yr follow up carotid US & CT Abd/pelvis 01/15/23 Intake Note: 1 year follow up carotid US 12/14/22 w/ Hx of Right CEA 03/[address] Abd/pelvis 01/15/23 for AAA and Hx of endovascular repair. Pt also has VV. Pt states she gets sharp pain where she had abdominal surgery and has questions about number of blood thinner medications. Accompanied by: CINEMA OR THEATRE MANAGER Allergies No Known Allergies Allergy (Verified 01/19/23 14:53) HPI 1 yr follow up carotid US & CT Abd/pelvis 01/15/23 HPI Details Very pleasant but nervous 77-year-old female presents for routine follow-up regarding peripheral vascular disease and aortic aneurysm. She reports she is doing fairly well. No interval issues. She can walk a block fairly easily her biggest complaint is her shortness of breath. She has been doing relatively well. Her only concern at the current time is that she is being maintained on Plavix and Eliquis. In addition she is on a high-dose statin. She presents with her niece. Now for routine follow-up. [facility] Medical History Asthma Atherosclerotic cardiovascular disease COPD (chronic obstructive pulmonary disease) COPD (chronic obstructive pulmonary disease) CVA (cerebral vascular accident) Dyspnea Emphysema lung Emphysema of lung Essential hypertension Glaucoma Hernia History of pyloric channel ulcer Hydroureter, right Mild acid reflux Pernicious anemia Psoriasis Raynauds disease Tachycardia Surgical History H/O carotid endarterectomy (04/01/20) History of AAA (abdominal aortic aneurysm) repair Hx of shoulder surgery Hx of varicose vein stripping Family History Father No problems noted. Mother No problems noted. Sister No problems noted. Sister No problems noted. Sister No problems noted. Sister No problems noted. Sister Cancer Son No problems noted. Social History Alcohol intake: never Patient Tobacco Use Status: Former Tobacco user Quit Date: 2019 Tobacco use type: Cigarette Years Smoked: 65 Second Hand Smoke Exposure: No Advance Directives Date on File: 06/11/21 service: No Current occupational status: retired Review of Systems Const All systems reviewed & are unremarkable except as noted in HPI and below Reports no additional complaints ENT Reports Normal hearing present Card Denies chest pain, Denies chest pain at rest, Denies chest pain with activity and Denies pedal edema Resp Denies cough GI Denies abdominal pain Musc Denies abnormal gait, Denies muscle cramps and Denies radiating pain into limb Skin/Breast Denies skin ulcer and Denies wounds Neuro Reports Normal hearing present and Denies abnormal gait Psych Reports no additional complaints Physical Exam Vital Signs: BMI result Body Mass Index 21.1 Const General: cooperative, healthy appearing and comfortable Orientation/consciousness: oriented to person, oriented to place and oriented to time HEENT Head: Yes normal to inspection Neck Neck: Yes normal visual inspection Carotids: no bruits Chest Chest palpation & inspection: normal inspection of the chest Resp Effort & Inspection: normal respiratory effort and able to speak in complete sentences Auscultation: clear to auscultation bilaterally, no crackles, no rales, no rhonchi and no wheezes Cardio Other: Bilateral DP signals Rate: regular rate Rhythm: regular rhythm Heart sounds: S1 normal heart sound present and S2 normal heart sound present Bruits: no carotid bruits GI Inspection: Yes normal to inspection Skin Wounds: no wounds Hair: normal Neuro General: oriented to person, oriented to place and oriented to time Cranial nerves: Yes CN's II-XII intact bilaterally and Yes Normal hearing present Cognition (Neuro): normal cognition Motor exam (neuro): 5/5 motor strength present throughout Extrem Other: venous exam: Large varicosities bilateral lower extremities, +1 edema General: No clubbing, No cyanosis and No edema Psych Appearance: grossly normal Mental Status: mental status grossly normal Speech and movement: Normal speech and movement present Results Reviewed Results Reviewed: CT abdomen and pelvis with contrast no evidence of endoleak chronically occluded left iliac date of image was 01/15/2023 Ultrasound dated 12/14/2022 demonstrates bilateral 0-49% stenosis. Written report and images of both were reviewed Assessment & Plan Assessment & Plan (1) Abdominal aortic aneurysm (AAA): Comment: 12/20/2017 - endovascular aortic aneurysm repair Code(s): I71.4 - Abdominal aortic aneurysm, without rupture Qualifiers: Presence of rupture: without rupture Qualified Code(s): I71.4 - Abdominal aortic aneurysm, without rupture Plan: In short patient has a stable aortic endograft. We have discussed the pathophysiology of aortic aneurysms and the risk of ruptures. We have discussed rupture risk based on size. In addition we have discussed conservative measures and risk factor modification for prevention of increase in size of the aneurysm. the patient is scheduled for surveillance follow-up in approximately 1 year. Thank you for allowing us to participate in the care of this patient (2) Stroke due to stenosis of right carotid artery: Comment: March 2020 - right carotid endarterectomy Code(s): I63.231 - Cerebral infarction due to unspecified occlusion or stenosis of right carotid arteries Plan: In short patient has asymptomatic carotid disease. We have reviewed signs and symptoms of a stroke. We also discussed risk factor modification inclusive a healthy diet low in cholesterol. The patient will follow up with us with surveillance ultrasound of the carotids 1 year. Should there be any changes or signs or symptoms of a stroke we will be happy to see them back sooner. Thank you for allowing us to participate in this patient's care. If there are any questions or concerns please do not hesitate to contact us. In addition we did discuss her anticoagulants and I did state that she can stop her clopidogrel and be maintained on Eliquis which was most likely started from her stroke. (3) Varicose veins of both lower extremities: Code(s): I83.93 - Asymptomatic varicose veins of bilateral lower extremities Plan: She does have significant bilateral lower extremity varicosities. At the current time will manage these conservatively. She does have several other issues going on we will continue to observe them as well. 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
== END 2023-01-19 15:23 | disposition home or self-care (01) ==
LOC: HO.HVS 14:45
PROVIDERS: PCP Internal Medicine Medical Oncology; Visit Provider Surgery Vascular Surgery
DX: I71.40 Abdominal aortic aneurysm, without rupture, unspecified (principal); I63.231 Cerebral infarction due to unspecified occlusion or stenosis of right carotid arteries; I83.93 Asymptomatic varicose veins of bilateral lower extremities
CPT/HCPCS: 99213

== ENCOUNTER → 2023-01-19 14:45 | Outpatient (BNVA) | payer OTHER, SELFPAY | PROVIDERS: PCP Internal Medicine Medical Oncology; Visit Provider Surgery Vascular Surgery | DX: I71.40 Abdominal aortic aneurysm, without rupture, unspecified (principal); I63.231 Cerebral infarction due to unspecified occlusion or stenosis of right carotid arteries; I83.93 Asymptomatic varicose veins of bilateral lower extremities; Z79.01 Long term (current) use of anticoagulants | CPT/HCPCS: 99212 ==

== ENCOUNTER 2023-02-08 10:56 | Outpatient (AMB) | payer OTHER, SELFPAY ==
[2023-02-08 11:00] VITALS: BP 140/67; PULSE 75; O2SAT 93; BMI 21.0
--- NOTE | 2023-02-08 11:00 | MHC.OFFVIS ---
Intake Vital Signs 02/08/23 11:00 Height 5 ft 4 in Weight 122 lb 8 oz BMI 21.0 BP 140/67 H Blood Pressure Location Lt brachial Position Sitting Pulse 75 Pulse Source Pulse Oximeter Pulse Oximetry (%) 93 Oxygen Delivery Method Room Air Intake Visit Reasons: Chronic back pain Allergies No Known Allergies Allergy (Verified 02/08/23 11:03) HPI Chronic back pain HPI Details Patient is a pleasant 77-year-old female is prior history of lumbar degenerative disc disease and lumbar radiculitis, CVA, osteoporosis, presents today for initial evaluation of chronic low back pain is bilateral radiculopathy. Patient reports she has been followed by [facility] pain management for many years and has received multiple injections for back pain but due to change in insurance in no longer can see her. Patient has history of CVA x2 with residual left-sided weakness and reports her left leg feels heavy constantly. She has long-term on Eliquis and has held that for 3 days prior to injections without any issues. She had L5-S1 REESE and caudal REESE on 09/26/2021 and 10/28/2022 with good results. Pain is axial across her waist and also radiates to both legs posteriorly is associated with burning, numbness and tingling pain in lower extremities and soles of both feet. It interferes with her daily activities, functioning, sleep, and mood. Reports numbness in both buttocks with prolonged sitting. Reports history of fall in September of this year which exacerbated her low back pain but without any new patterns of pain after suffering a ground level fall due to pit bulls attack. Reports history of surgical repair of AAA in 2020. Her lumbar spine MRI she was completed 2020 that showed no significant central canal or foraminal narrowing in L4-L5 or L5-S1 levels. Denies previous back surgery. Patient is interested and therapeutic injections to alleviate her radicular pain. Denies any fever, abdominal or groin pain, bladder or bowel incontinence. Location Chronic low back radiates to bilateral lower extremities, L>R Duration Chronic pain for 21 years Characteristics of symptom or complaint Throbbing, shooting, stabbing, sharp, burning, tingling, heavy, radiating Aggravating or associated factors Walking, saddle anesthesia with prolonged sitting, standing, bending Relieving factors Walker, cane at home; back injections, Tylenol Treatment Back injections at [facility] (change in insurance, not accepted) [facility] Medical History Asthma Atherosclerotic cardiovascular disease COPD (chronic obstructive pulmonary disease) COPD (chronic obstructive pulmonary disease) CVA (cerebral vascular accident) Dyspnea Emphysema lung Emphysema of lung Essential hypertension Glaucoma Hernia History of pyloric channel ulcer Hydroureter, right Mild acid reflux Pernicious anemia Psoriasis Raynauds disease Tachycardia Surgical History H/O carotid endarterectomy (04/01/20) History of AAA (abdominal aortic aneurysm) repair Hx of shoulder surgery Hx of varicose vein stripping Family History Father No problems noted. Mother No problems noted. Sister No problems noted. Sister No problems noted. Sister No problems noted. Sister No problems noted. Sister Cancer Son No problems noted. Social History Alcohol intake: never Patient Tobacco Use Status: Former Tobacco user Quit Date: 2019 Tobacco use type: Cigarette Years Smoked: 65 Second Hand Smoke Exposure: No Advance Directives Date on File: 06/11/21 service: No Current occupational status: retired Review of Systems Const All systems reviewed & are unremarkable except as noted in HPI and below Physical Exam Vital Signs: Last Vital Signs Pulse 75 02/08/23 11:00 BP 140/67 H 02/08/23 11:00 Pulse Ox 93 02/08/23 11:00 Oxygen Delivery Method Room Air 02/08/23 11:00 BMI result Body Mass Index 21.0 General: Appears afebrile. Alert and oriented. Mood and affect appropriate. Follows and participates in conversation appropriately. Respiratory effort is unlabored. Non-productive cough. No nasal discharge. Able to transition from sit to stand unassisted. Uses cane or walker at home. Ambulates with bilaterally normal heel strike and toe off iwith weakness and imbalance on left side. Back/Spine/Pelvis Other: Patient ambulates with antalgic gait and limping. Can flex forward to 40-50 degrees and extend to 5-10 degrees before experiencing lumbar pain. Demonstrates 5/5 right and 4/5 left strength of quadriceps bilaterally as well as flexion/dorsiflexion of bilateral feet against resistance. 2+ pedal pulses bilaterally. Seated straight leg rise with dorsiflexion positive bilaterally, worse on the left. +2 patellar and achilles reflexes bilaterally. Facet loading test positive bilaterally. No groin pain with I/E hip rotations. Valsalva maneuver positive. Unable to proceed with exam due to pain. Cervical Spine: loss of normal cervical lordosis, cervical muscular tenderness and No Cervical spine tenderness Thoracic/Lumbar Spine: thoracic and lumbar spine normal to inspection, No Thoracic/lumbar spine scar(s), kyphosis, Lasegue's sign positive bilateral and localized, paraspinal muscle tenderness, thoraco-lumbar ROM limited, No thoracic spinal tenderness, lumbar spinal tenderness and straight leg raise positive bilateral at 30 degrees and at 40 degrees Pelvis: buttock tenderness bilaterally and sciatic notch tenderness (worse on the left, saddle anesthesia with sitting) bilateral Assessment & Plan Assessment & Plan (1) Lumbar degenerative disc disease: Code(s): M51.36 - Other intervertebral disc degeneration, lumbar region (2) Lumbar radiculitis: Code(s): M54.16 - Radiculopathy, lumbar region (3) Spondylosis of lumbar spine: Code(s): M47.816 - Spondylosis without myelopathy or radiculopathy, lumbar region (4) Chronic pain syndrome: Code(s): G89.4 - Chronic pain syndrome Plan MRI of the lumbar spine to assess for neural integrity and compression. Patient reports anaesthesia with prolonged sitting. Patient is aware to call if pain worsens or if she develops any red flag symptoms to seek emergency care. Briefly discussed treatments for axial and radicular back pain. Informational pressures provided today. I have informed patient that our office does not offer opioid prescribing at this time. Patient will return to the clinic to discuss results of the MRI findings when it is done and consider interventional therapy as indicated. All questions were answered and the patient is in agreement with the treatment plan. Follow-up for MRI results or sooner if needed. Orders: Orders MR lumbar spine wo con 02/08/23 M51.36 - Other intervertebral disc degeneration, lumbar region, M54.16 - Radiculopathy, lumbar region Coding Level of Care Code New Pt Level 4 (86106) Diagnoses Lumbar degenerative disc disease M51.36 Lumbar radiculitis M54.16 Spondylosis of lumbar spine M47.816 Chronic pain syndrome G89.4
== END 2023-02-08 11:43 | disposition home or self-care (01) ==
PROVIDERS: PCP Internal Medicine Medical Oncology; Visit Provider Nurse Practitioner Family
DX: M51.36 Other intervertebral disc degeneration, lumbar region (principal); M54.16 Radiculopathy, lumbar region; M47.816 Spondylosis without myelopathy or radiculopathy, lumbar region; G89.4 Chronic pain syndrome
CPT/HCPCS: 99204; 99214

== ENCOUNTER → 2023-02-08 10:56 | Outpatient (BNVA) | payer OTHER, SELFPAY | PROVIDERS: PCP Internal Medicine Medical Oncology; Visit Provider Nurse Practitioner Family | DX: M51.36 Other intervertebral disc degeneration, lumbar region (principal); M54.16 Radiculopathy, lumbar region; M47.816 Spondylosis without myelopathy or radiculopathy, lumbar region; G89.4 Chronic pain syndrome | CPT/HCPCS: 99202 ==

== ENCOUNTER 2023-05-05 07:18 | Outpatient (REF) | payer OTHER, MEDICAID, SELFPAY ==
--- NOTE | ~2023-05-05 | CT_ITS ---
CT LUMBAR SPINE WITHOUT CONTRAST CLINICAL INFORMATION: Chronic pain syndrome. COMPARISON: Abdominal CT 01/15/2023. TECHNIQUE: A multidetector CT acquisition of the lumbar spine is obtained without contrast per This CT examination was performed using dose optimization techniques as appropriate, variously including the following: *Automated exposure control *Adjustment of mA and/or kV according to patient size (this includes techniques or standardized protocols for targeted exams where dose is matched to indication/reason for exam; i.e. extremities or head) *Use of iterative reconstruction technique FINDINGS: Stable chronic vertebral body height loss at the T12, L1, and L3 levels. The remaining vertebral body heights are maintained. There is diffuse osteopenia. No acute fractures no acute subluxations. There are multilevel endplate osteophytes. There is vacuum phenomenon within the SI joints bilaterally. Aortobiiliac stent graft. Partially imaged hiatal hernia. There is paraspinal muscular atrophy bilaterally. L1-L2: Diffuse annular disc bulge and mild bilateral facet arthropathy. There is no central canal stenosis. Mild to moderate bilateral foraminal encroachment. L2-L3: Diffuse annular disc bulge and mild bilateral facet arthropathy. There is no central canal stenosis. There is mild foraminal encroachment bilaterally. L3-L4: Diffuse annular disc bulge and moderate bilateral facet arthropathy. There is no central canal stenosis and there is no foraminal stenosis. Left subarticular zone stenosis with possible mass effect on the traversing left L4 nerve root. L4-L5: Diffuse annular disc bulge and severe bilateral facet arthropathy and ligamentum flavum thickening. Findings in concert result in mild to moderate central canal stenosis, bilateral subarticular zone stenosis with mass effect on the traversing L5 nerve roots bilaterally, and mild bilateral foraminal encroachment. L5-S1: There is a diffuse annular disc bulge and there is severe bilateral facet arthropathy and ligamentum flavum thickening. There is no central canal stenosis. There is no foraminal stenosis. CT/CT lumbar spine wo IV con IMPRESSION: - At L4-L5, multifactorial degenerative changes result in mild to moderate central canal stenosis, bilateral subarticular zone stenosis with mass effect on the traversing L5 nerve roots bilaterally, and mild bilateral foraminal encroachment. - At L3-L4, multifactorial degenerative changes result in left subarticular zone stenosis with possible mass effect on the traversing left L4 nerve root. - There is advanced hypertrophic facet arthropathy at the L4-L5 and L5-S1 levels. - Stable chronic vertebral body height loss at the T12, L1, and L3 levels. No acute fractures. - Aortobiiliac stent graft. - Partially imaged hiatal hernia.
== END 2023-05-05 07:19 | disposition home or self-care (01) ==
LOC: HO.CT 07:18
PROVIDERS: PCP Internal Medicine Medical Oncology; Visit Provider Nurse Practitioner Family
DX: M47.816 Spondylosis without myelopathy or radiculopathy, lumbar region (principal); M54.16 Radiculopathy, lumbar region; G89.4 Chronic pain syndrome
CPT/HCPCS: 72131

== ENCOUNTER 2023-05-13 12:03 | Outpatient (REF) | payer OTHER, SELFPAY ==
[2023-05-13 12:24] LABS: MANUAL DIFF FLAG NO
[2023-05-13 13:00] LABS: Basophils Absolute Auto 0.1 X10*3/uL (0.0-0.2); Basophils Percent Auto 0.7 % (0-2); Eosinophils Absolute Auto 0.2 X10*3/uL (0.0-0.4); Eosinophils Percent Auto 2.5 % (0-4); Hematocrit 41.5 % (37.0-47.0); Hemoglobin 12.8 g/dl (12.0-16.0); Imm Gran Abs Auto 0.01 X10*3/uL (0.00-0.03); Imm Gran Pct Auto 0.1 % (0.0-0.4); Lymphocytes Absolute Auto 1.4 X10*3/uL (1.2-4.9); Lymphocytes Percent Auto 20.4 % (20-40); Mean Corpuscular HGB Conc 30.8 g/dl (31.0-35.0); Mean Corpuscular Hemoglobin 26.5 pg (27.0-33.0); Mean Corpuscular Volume 85.9 fL (80.0-98.0); Mean Platelet Volume 11.9 fL (9.4-12.3); Monocytes Absolute Auto 0.5 X10*3/uL (0.1-1.2); Monocytes Percent Auto 7.7 % (2-11); Neutrophils Absolute Auto 4.7 x10*3/uL (2.0-8.3); Neutrophils Percent Auto 68.6 % (45-73); Platelet Count 227 X10*3/uL (160-400); Red Blood Count 4.83 X10*6/uL (4.20-5.50); Red Cell Distribution Width 15.1 % (11.0-16.0); White Blood Count 6.9 X10*3/uL (4.8-10.8)
[2023-05-13 13:51] LABS: Alanine Aminotransferase 8 U/L (0-31); Albumin Level 4.2 g/dL (3.5-5.0); Alkaline Phosphatase 136 U/L (39-117); Anion Gap 12 (12-20); Aspartate Amino Transferase 17 U/L (5-31); Bilirubin Total 0.6 mg/dL (0.0-1.0); Blood Urea Nitrogen 12 mg/dL (9-16); Carbon Dioxide 30 mmol/L (22-29); Chloride 104 mmol/L (96-108); Estimated Glomerular Filt Rate > 60; Glucose Random 92 mg/dL (60-115); Potassium 3.8 mmol/L (3.3-5.1); Sodium 142 mmol/L (135-145); Total Protein 7.7 g/dL (6.5-8.0)
== END 2023-05-13 12:04 | disposition home or self-care (01) ==
LOC: HO.LAB 12:03
PROVIDERS: PCP Internal Medicine Medical Oncology; Visit Provider Internal Medicine Medical Oncology
DX: D50.9 Iron deficiency anemia, unspecified (principal); R39.9 Unspecified symptoms and signs involving the genitourinary system; R50.9 Fever, unspecified
CPT/HCPCS: 36415; 80053; 85025

== ENCOUNTER 2023-05-14 08:56 | Outpatient (AMB) | payer OTHER, SELFPAY ==
--- NOTE | 2023-05-14 09:02 | MHC.OFFVIS ---
Intake Vital Signs 05/14/23 09:05 Height 5 ft 4 in Weight 125 lb BMI 21.5 BP 133/63 Blood Pressure Location Lt brachial Position Sitting Pulse 86 Pulse Source Pulse Oximeter Pulse Oximetry (%) 96 Oxygen Delivery Method Room Air Intake Visit Reasons: Lumbar Spine CT Results Intake Note: Pain today 03/21 Customer Support Assistant Required: No Accompanied by: Daughter Allergies No Known Allergies Allergy (Verified 05/14/23 09:05) Medication List - Last Reconciled 05/14/23 by KALEB Marmolejo albuterol sulfate 90 mcg/actuation 1 inh inhalation QID PRN apixaban (Eliquis) 5 mg PO BID atorvastatin 80 mg PO DAILY fluticasone propion-salmeterol 115-21 mcg/actuation (Advair HFA) 2 puffs inhalation Q12H 30 days latanoprost 0.005% 1 drp ophthalmic (eye) BEDTIME lvnoxr-nelfynqx-dhrdohd 24,000-76,000 -120,000 unit (Creon) 1 cap PO TID lisinopril 10 mg PO DAILY nebulizers As directed omeprazole 20 mg PO BID 30 days ondansetron 4 mg PO Q8H PRN sennosides (Senokot Extra Strength) 17.2 mg PO BID PRN HPI HPI Comments History of Present Illness Details Patient presents today for follow-up to review recent lumbar spine CT scan results. Due to significant claustrophobia, she was unable to undergo MRI. Patient reports moderate left sided radicular symptoms and moderate to severe axial low back pain. During osteoporosis in lumbar spine and bilateral hip joints patient is not candidate for corticosteroid injections. She is interested to undergo interventional treatments for chronic axial low back pain. Denies any recent cough, cold, infection, fever or other significant changes in medical history since last office visit. Patient denies any bladder or bowel incontinence or saddle anesthesia. PRIOR: Patient is a pleasant 77-year-old female is prior history of lumbar degenerative disc disease and lumbar radiculitis, CVA, osteoporosis, presents today for initial evaluation of chronic low back pain is bilateral radiculopathy. Patient reports she has been followed by [facility] pain management for many years and has received multiple injections for back pain but due to change in insurance in no longer can see her. Patient has history of CVA x2 with residual left-sided weakness and reports her left leg feels heavy constantly. She has long-term on Eliquis and has held that for 3 days prior to injections without any issues. She had L5-S1 REESE and caudal REESE on 09/26/2021 and 10/28/2022 with good results. Pain is axial across her waist and also radiates to both legs posteriorly is associated with burning, numbness and tingling pain in lower extremities and soles of both feet. It interferes with her daily activities, functioning, sleep, and mood. Reports numbness in both buttocks with prolonged sitting. Reports history of fall in September of this year which exacerbated her low back pain but without any new patterns of pain after suffering a ground level fall due to pit bulls attack. Reports history of surgical repair of AAA in 2020. Her lumbar spine MRI she was completed 2020 that showed no significant central canal or foraminal narrowing in L4-L5 or L5-S1 levels. Denies previous back surgery. Patient is interested and therapeutic injections to alleviate her radicular pain. Denies any fever, abdominal or groin pain, bladder or bowel incontinence. Location Chronic low back radiates to bilateral lower extremities, L>R Duration Chronic pain for 21 years Characteristics of symptom or complaint Throbbing, shooting, stabbing, sharp, burning, tingling, heavy, radiating Aggravating or associated factors Walking, saddle anesthesia with prolonged sitting, standing, bending Relieving factors Walker, cane at home; back injections, Tylenol Treatment Back injections at [facility] (change in insurance, not accepted) [facility] Medical History COPD (chronic obstructive pulmonary disease) Atherosclerotic cardiovascular disease Psoriasis Hydroureter, right Pernicious anemia Raynauds disease Hernia Emphysema lung Essential hypertension Tachycardia Dyspnea CVA (cerebral vascular accident) Emphysema of lung COPD (chronic obstructive pulmonary disease) Asthma History of pyloric channel ulcer Glaucoma Mild acid reflux Surgical History H/O carotid endarterectomy (04/01/20) History of AAA (abdominal aortic aneurysm) repair Hx of shoulder surgery Hx of varicose vein stripping Family History Father No problems noted. Mother No problems noted. Sister No problems noted. Sister No problems noted. Sister No problems noted. Sister No problems noted. Sister Cancer Son No problems noted. Social History Alcohol intake: never Patient Tobacco Use Status: Former Tobacco user Quit Date: 2019 Tobacco use type: Cigarette Years Smoked: 65 Second Hand Smoke Exposure: No Advance Directives Date on File: 06/11/21 service: No Current occupational status: retired Review of Systems Const All systems reviewed & are unremarkable except as noted in HPI and below Physical Exam Vital Signs: Last Vital Signs Pulse 86 05/14/23 09:05 BP 133/63 05/14/23 09:05 Pulse Ox 96 05/14/23 09:05 Oxygen Delivery Method Room Air 05/14/23 09:05 BMI result Body Mass Index 21.5 General: Appears afebrile. Alert and oriented. Mood and affect appropriate. Follows and participates in conversation appropriately. Respiratory effort is unlabored. Non-productive cough. No nasal discharge. Able to transition from sit to stand unassisted. Uses cane or walker at home. Ambulates with bilaterally normal heel strike and toe off iwith weakness and imbalance on left side. Back/Spine/Pelvis Cervical Spine: loss of normal cervical lordosis, pain with cervical ROM and No Cervical spine tenderness Thoracic/Lumbar Spine: thoracic and lumbar spine normal to inspection, No Thoracic/lumbar spine scar(s), kyphosis, Lasegue's sign positive on the left and localized, pain with thoraco-lumbar ROM, paraspinal muscle tenderness, thoraco-lumbar ROM limited, No thoracic spinal tenderness, lumbar spinal tenderness and straight leg raise positive left at 40 degrees Pelvis: buttock tenderness bilaterally and no sciatic notch tenderness Sacroiliac joints: bilaterally nontender Results Reviewed Results Reviewed: CT LUMBAR SPINE WITHOUT CONTRAST 05/05/23 CLINICAL INFORMATION: Chronic pain syndrome. COMPARISON: Abdominal CT 01/15/2023. FINDINGS: Stable chronic vertebral body height loss at the T12, L1, and L3 levels. The remaining vertebral body heights are maintained. There is diffuse osteopenia. No acute fractures no acute subluxations. There are multilevel endplate osteophytes. There is vacuum phenomenon within the SI joints bilaterally. Aortobiiliac stent graft. Partially imaged hiatal hernia. There is paraspinal muscular atrophy bilaterally. L1-L2: Diffuse annular disc bulge and mild bilateral facet arthropathy. There is no central canal stenosis. Mild to moderate bilateral foraminal encroachment. L2-L3: Diffuse annular disc bulge and mild bilateral facet arthropathy. There is no central canal stenosis. There is mild foraminal encroachment bilaterally. L3-L4: Diffuse annular disc bulge and moderate bilateral facet arthropathy. There is no central canal stenosis and there is no foraminal stenosis. Left subarticular zone stenosis with possible mass effect on the traversing left L4 nerve root. L4-L5: Diffuse annular disc bulge and severe bilateral facet arthropathy and ligamentum flavum thickening. Findings in concert result in mild to moderate central canal stenosis, bilateral subarticular zone stenosis with mass effect on the traversing L5 nerve roots bilaterally, and mild bilateral foraminal encroachment. L5-S1: There is a diffuse annular disc bulge and there is severe bilateral facet arthropathy and ligamentum flavum thickening. There is no central canal stenosis. There is no foraminal stenosis. IMPRESSION: - At L4-L5, multifactorial degenerative changes result in mild to moderate central canal stenosis, bilateral subarticular zone stenosis with mass effect on the traversing L5 nerve roots bilaterally, and mild bilateral foraminal encroachment. - At L3-L4, multifactorial degenerative changes result in left subarticular zone stenosis with possible mass effect on the traversing left L4 nerve root. - There is advanced hypertrophic facet arthropathy at the L4-L5 and L5-S1 levels. - Stable chronic vertebral body height loss at the T12, L1, and L3 levels. No acute fractures. - Aortobiiliac stent graft. - Partially imaged hiatal hernia. BONE DENSITOMETRY 08/27/22 CLINICAL INDICATION: Age-related osteoporosis without current pathological fracture. COMPARISON: This is the patient's baseline examination. TECHNIQUE: Using a [employer] DXA System (software version: 13.1) manufactured by [employer], dual-energy x-ray absorptiometry was performed of the lumbar spine and left hip. The images are of good technical quality. Summary results are attached. FINDINGS: AP SPINE L1-L4: BMD 0.766 g/cm2, Z-score -1.3, T-score -3.5, osteoporosis. LEFT FEMUR, NECK: BMD 0.525 g/cm2, Z-score -1.5, T-score -3.7, osteoporosis. LEFT FEMUR, TOTAL: BMD 0.576 g/cm2, Z-score -1.4, T-score -3.4, osteoporosis. IDENTIFIED RISK FACTORS: Menopause. HISTORY OF FRACTURE: Toe. MEDICATIONS: None listed. IMPRESSION: 1. DIAGNOSIS: Osteoporosis based on the lowest T-score value of -3.7 in the femoral neck applying World Health Organization criteria. 2. 10-YEAR FRACTURE RISK PREDICTION, FRAX: According to the guidelines, FRAX calculation should only be performed on patients in the osteopenia bone density category. Therefore, FRAX was not performed on this patient.? 3. Treatment Recommendations: NOF guidelines recommend consideration for treatment in postmenopausal women and men age 50 and older presenting with the following: -A hip or vertebral (clinical or morphometric) fracture. -T-score less than or equal to -2.5 at the femoral neck or spine after appropriate evaluation to exclude secondary causes. -Low bone mass at the hip or spine and a 10-year fracture probability by FRAX of greater than or equal to 3% for hip fracture or greater than or equal to 20% for major osteoporotic fracture based on the [place] adapted WHO algorithm. 4. Other Recommendations: All treatment decisions require clinical judgment and consideration of individual patient factors, including patient preferences, comorbidities, previous drug use, risk factors not captured in the FRAX model (e.g. frailty, falls, vitamin D deficiency, increased bone turnover, interval significant decline in bone density) and possible under or overestimation of fracture risk by FRAX. Additional medical evaluation for secondary cause of low bone mineral density may be appropriate. FUTURE SCAN RECOMMENDATION: People with diagnosed cases of osteoporosis or at high risk for fracture should have regular bone mineral density tests. For patients eligible for Medicare, routine testing is allowed once every 2 years. The testing frequency can be increased to one year for patients who have rapidly progressing disease, those who are receiving or discontinuing medical therapy to restore bone mass, or have additional risk factors. Assessment & Plan Assessment & Plan (1) Osteoporosis: Code(s): M81.0 - Age-related osteoporosis without current pathological fracture (2) Lumbar degenerative disc disease: Code(s): M51.36 - Other intervertebral disc degeneration, lumbar region (3) Chronic pain syndrome: Code(s): G89.4 - Chronic pain syndrome (4) Spondylosis of lumbar spine: Code(s): M47.816 - Spondylosis without myelopathy or radiculopathy, lumbar region (5) Lumbar radiculitis: Code(s): M54.16 - Radiculopathy, lumbar region Plan 1. Endocrinology referral for management of osteoporosis. Patient reports no treatments for osteoporosis since bone scan in August 2022. 2. Lumbar spine CT scan results were discussed with patient in greater detail. Schedule bilateral diagnostic L3-L4 L5 MBBs with local and fluoroscopy. If she has significant relief from the diagnostic blocks for his axial low back pain, will consider Sprint PNS or RFA depending on her preference. All questions were answered patient agreed with the treatment plan. Follow-up after injections and sooner as needed. Anticoagulation: Patient on anticoagulation (Eliquis) and instructions given on when to pause with prescribing physician permission. Justification for interventional therapy: ? Patient with average pain > 6/10 ? Patient has exhausted conservative therapy ? patient is unable to tolerate physical therapy due to significant pain The risks, consequences, alternatives, and benefits of various treatment options were discussed with the patient in great detail, including conservative management, injections and procedures. Orders: Referrals Endocrinology Referral M51.36 - Other intervertebral disc degeneration, lumbar region, M81.0 - Age-related osteoporosis without current pathological fracture Coding Level of Care Code Est Pt Level 4 (07773) Diagnoses Osteoporosis M81.0 Lumbar degenerative disc disease M51.36 Chronic pain syndrome G89.4 Spondylosis of lumbar spine M47.816 Lumbar radiculitis M54.16
[2023-05-14 09:05] VITALS: BP 133/63; PULSE 86; O2SAT 96; BMI 21.5
== END 2023-05-14 09:41 | disposition home or self-care (01) ==
PROVIDERS: PCP Internal Medicine Medical Oncology; Visit Provider Nurse Practitioner Family
DX: M81.0 Age-related osteoporosis without current pathological fracture (principal); M51.36 Other intervertebral disc degeneration, lumbar region; G89.4 Chronic pain syndrome; M47.816 Spondylosis without myelopathy or radiculopathy, lumbar region; M54.16 Radiculopathy, lumbar region
CPT/HCPCS: 99214

== ENCOUNTER → 2023-05-14 08:56 | Outpatient (BNVA) | payer OTHER, SELFPAY | PROVIDERS: PCP Internal Medicine Medical Oncology; Visit Provider Nurse Practitioner Family | DX: M81.0 Age-related osteoporosis without current pathological fracture (principal); M51.36 Other intervertebral disc degeneration, lumbar region; M47.816 Spondylosis without myelopathy or radiculopathy, lumbar region; M54.16 Radiculopathy, lumbar region; G89.4 Chronic pain syndrome | CPT/HCPCS: 99212 ==

== ENCOUNTER 2023-06-18 10:46 | Outpatient (AMB) | payer OTHER, MEDICAID, SELFPAY ==
[2023-06-18 10:52] VITALS: BP 140/80; PULSE 91; O2SAT 92; BMI 22.0
--- NOTE | 2023-06-18 10:52 | A.OFFVIS_ITS ---
Intake Vital Signs 06/18/23 10:52 Height 5 ft 4 in Weight 128 lb BMI 22.0 BP 140/80 H Blood Pressure Location Lt brachial Position Sitting Pulse 91 Pulse Source Pulse Oximeter Pulse Oximetry (%) 92 Oxygen Delivery Method Room Air Intake Visit Reasons: copd Intake Note: pt is here for follow up and states she is about the same as previous visit. 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 Right now she becomes very short of breath even with minimal activity moderate to severe. When she cannot breathe she feels very breathless and his and she is starts panting. Initially had been when she was in the room. In the office we did have her go for 6 minutes walk test patient maintain a pulse ox will above 95% throughout the ambulation. However, his noted that she became very short of breath with a Bandar score of 8/10 when heart rate increased to about 101,520. Therefore we had done an EKG demonstrating sinus that with activity. Patient did have poor R-wave progression in some T-wave abnormalities. At this point the patient does not have any chest pain and no resting her shortness of breath have subsided. Therefore, I will have undergo blood work and also referred to Cardiology. In the meantime will optimize her respiratory therapy by starting Trelegy inhaler should be a good inhaler for her for adherence and also for maximum respiratory capacity. 11/22/2020 The patient is here for a sic k visit. She started developing worsening dyspnea even at rest. The patient has hard time with any activity due to significant panting shortness of breath. She also has been complaining of chest pressure. She did call the office yesterday and we advised her to go to the ER because of the chest discomfort. However, she did go but was too crowded and she left. Therefore she was seen today in the office. She has been using the Trelegy inhaler. Only partially helpful. Denies any fevers or chills. Denies any contact with anybody with COVID-19. Denies any productive cough or coughing general. The patient did have an EKG done in the office demonstrating some minimal ectopy otherwise no abnormalities. Therefore, she was given 2 treatments with DuoNeb and her symptoms improved dramatically. Her chest pressure subsided. The patient afterwards was ambulated had a 6 minutes walk test which she desaturated down to 88% with activity. Therefore supplemental oxygen with activity will be helpful as well. The patient does need a nebulizer. We did provide her with a nebulizer in the office and she was educated on how to use it. The patient be treated for COPD exacerbation. If however condition worsens or her symptoms worsen over the weekend that she needs to seek medical advice in the ER. 06/12/2022 the patient is here for a pulm onary follow-up visit. Overall the patient has been doing a little better. She is responding well to the oxygen. She does use with activity and sleep. She has been using her rescue inhaler. Her maintenance inhaler now is not being covered. She has been having to use her rescue inhaler more often. She does not tolerate the powdered inhalers. Therefore I will send her the Advair HFA with hopes that she can start using her maintenance therapy and improve her overall respiratory capacity. We did review her imaging. She did have a CT scan of the chest last year demonstrating hiatal hernia in addition to emphysema. Patient also had some atelectasis. Will go ahead and repeat her chest x-ray at this time. 12/18/2022 the patient is here for a pulmo nary follow-up visit. Overall she is feeling better. She does use the oxygen with activity with good effect. Also use it with sleep. She has some discrepancies with her inhalers. I did advise her to use the Advair as prescribed and her rescue inhaler. She had a chest x- ray back in September 2022 personally by me demonstrating no acute disease. Clinically the patient is doing well right now. 06/18/2023 the patient is here for a pulm onary follow-up visit. The patient overall has been doing well. She denies any new complaints. She does have some dyspnea on exertion [id number] severity. She does use the oxygen with good effect. She has also been using the Advair inhaler. She still has some chest tightness and wheezing at times. The patient does have and prescription for Trelegy but she does know if . And the daughter is also wondering if for once a day medication be effective for her. We did talk about potentially optimizing her respiratory therapy by adding a long-acting muscarinic antagonist along with the Advair. If she finds that effective we can always switch her in the future to something like Trelegy. [facility] Medical History COPD (chronic obstructive pulmonary disease) Atherosclerotic cardiovascular disease Psoriasis Hydroureter, right Pernicious anemia Raynauds disease Hernia Emphysema lung Essential hypertension Tachycardia Dyspnea CVA (cerebral vascular accident) Emphysema of lung COPD (chronic obstructive pulmonary disease) Asthma History of pyloric channel ulcer Glaucoma Mild acid reflux Surgical History H/O carotid endarterectomy (04/01/20) History of AAA (abdominal aortic aneurysm) repair Hx of shoulder surgery Hx of varicose vein stripping Family History Father No problems noted. Mother No problems noted. Sister No problems noted. Sister No problems noted. Sister No problems noted. Sister No problems noted. Sister Cancer Son No problems noted. Social History Alcohol intake: never Patient Tobacco Use Status: Former Tobacco user Quit Date: 2019 Tobacco use type: Cigarette Years Smoked: 65 Second Hand Smoke Exposure: No Advance Directives Date on File: 06/11/21 service: No Current occupational status: retired Review of Systems Const Denies night sweats ENT Denies change in voice, Reports dizziness, Denies lip swelling, Denies mouth pain, Reports nasal congestion, Reports nasal discharge and Denies tongue swelling Card Denies chest pain, Denies dyspnea and Reports dyspnea on exertion Resp Reports cough, Denies dyspnea, Reports dyspnea on exertion and Denies stridor GI Denies abdominal pain Musc Denies no additional complaints Neuro Denies Neuro-related abnormal movements and Reports dizziness Psych Denies no additional complaints Edwardo/Lymph Denies easy bleeding and Denies lymphadenopathy Aller/Immun Denies lip swelling and Denies tongue swelling Physical Exam Vital Signs: Last Vital Signs Pulse 91 06/18/23 10:52 BP 140/80 H 06/18/23 10:52 Pulse Ox 92 06/18/23 10:52 Oxygen Delivery Method Room Air 06/18/23 10:52 BMI result Body Mass Index 22.0 Const General: alert Neck Neck: Yes normal visual inspection, Yes full ROM and Yes no lymphadenopathy Chest Chest palpation & inspection: normal inspection of the chest Resp Auscultation: no wheezes and diminished lung sounds Cardio Rate: regular rate Rhythm: regular rhythm Heart sounds: S1 normal heart sound present and S2 normal heart sound present GI Palpation (GI): Soft to palpation and nontender Auscultation: normal bowel sounds Skin General skin exam: rashes and/or lesions noted Assessment & Plan Assessment & Plan (1) Dyspnea: Code(s): R06.00 - Dyspnea, unspecified Qualifiers: Dyspnea type: dyspnea on exertion Qualified Code(s): R06.00 - Dyspnea, unspecified (2) Emphysema of lung: Code(s): J43.9 - Emphysema, unspecified Qualifiers: Emphysema type: centrilobular Qualified Code(s): J43.2 - Centrilobular emphysema Plan continue Advair HFA add Incruse consider Trelegy in the future KAYY as needed CXR if symptoms worsen oxygen supplementation 2 L via nasal cannula with activity Follow-up in 6-8 months Medications: New umeclidinium 62.5 mcg/actuation (Incruse Ellipta) 1 inh inhalation DAILY 30 days 30 ea 11RF J45.909 - Unspecified asthma, uncomplicated Coding Level of Care Code Est Pt Level 4 (85459) Diagnoses Dyspnea on exertion R06.00 Dyspnea type: dyspnea on exertion Centrilobular emphysema J43.2 Emphysema type: centrilobular Time Spent (min) 16
== END 2023-06-18 11:13 | disposition home or self-care (01) ==
PROVIDERS: PCP Internal Medicine Medical Oncology; Visit Provider Hospitalist
DX: R06.00 Dyspnea, unspecified (principal); J43.2 Centrilobular emphysema
CPT/HCPCS: 99214

== ENCOUNTER → 2023-06-18 10:46 | Outpatient (BNVA) | payer OTHER, MEDICAID, SELFPAY | PROVIDERS: PCP Internal Medicine Medical Oncology; Visit Provider Hospitalist | DX: J43.2 Centrilobular emphysema (principal); R06.00 Dyspnea, unspecified | CPT/HCPCS: 99212 ==

== ENCOUNTER 2023-06-22 06:10 | Outpatient (REF) | payer OTHER, MEDICAID, SELFPAY ==
--- NOTE | ~2023-06-22 | FL_ITS ---
EXAMINATION: XR FLUOROSCOPY WITH IMAGES CLINICAL INFORMATION: Spondylosis without myelopathy or radiculopathy, lumbar region. COMPARISON: None available. TECHNIQUE: Fluoroscopy Supervised By: Dr. Mehran Short. Fluoroscopy Time: 0.7 minutes. Cumulative Dose: 8.69 mGy. DAP: 0.151 Gycm2. Images: 6. FINDINGS: Images demonstrate needle placement and contrast injection adjacent to the bilateral lateral L3, L4 and L5 vertebrae. There is an aortic biiliac stent graft. FL/FL guidance in treatment room IMPRESSION: Fluoroscopy guidance for lumbar spine pain management procedure.
== END 2023-06-22 06:11 | disposition home or self-care (01) ==
LOC: CF 06:10
PROVIDERS: Visit Provider Anesthesiology
DX: M47.816 Spondylosis without myelopathy or radiculopathy, lumbar region (principal); M81.0 Age-related osteoporosis without current pathological fracture; M51.36 Other intervertebral disc degeneration, lumbar region; G89.4 Chronic pain syndrome
CPT/HCPCS: 64493; 64494; J2795; Q9967

== ENCOUNTER 2023-06-22 10:49 | Outpatient (AMB) | payer OTHER, SELFPAY ==
--- NOTE | 2023-06-22 10:55 | A.OFFVIS_ITS ---
Intake Vital Signs 06/22/23 13:07 06/22/23 13:09 Height 5 ft 4 in 5 ft 4 in Weight 128 lb 128 lb BMI 22.0 22.0 BP 130/64 128/90 H Blood Pressure Location Lt brachial Lt brachial Position Sitting Sitting Respiration 14 14 Pulse 74 71 Pulse Source Pulse Oximeter Pulse Oximeter Pulse Oximetry (%) 95 98 Oxygen Delivery Method Room Air Room Air Comment pre-op post-op Intake Visit Reasons: BILAT DX L3-L4-L5 MBB/LOCAL Allergies No Known Allergies Allergy (Verified 06/22/23 13:10) PFSH Medical History COPD (chronic obstructive pulmonary disease) Atherosclerotic cardiovascular disease Psoriasis Hydroureter, right Pernicious anemia Raynauds disease Hernia Emphysema lung Essential hypertension Tachycardia Dyspnea CVA (cerebral vascular accident) Emphysema of lung COPD (chronic obstructive pulmonary disease) Asthma History of pyloric channel ulcer Glaucoma Mild acid reflux Surgical History H/O carotid endarterectomy (04/01/20) History of AAA (abdominal aortic aneurysm) repair Hx of shoulder surgery Hx of varicose vein stripping Family History Father No problems noted. Mother No problems noted. Sister No problems noted. Sister No problems noted. Sister No problems noted. Sister No problems noted. Sister Cancer Son No problems noted. Social History Alcohol intake: never Patient Tobacco Use Status: Former Tobacco user Quit Date: 2019 Tobacco use type: Cigarette Years Smoked: 65 Second Hand Smoke Exposure: No Advance Directives Date on File: 06/11/21 service: No Current occupational status: retired Physical Exam Vital Signs: Last Vital Signs Pulse 71 06/22/23 13:09 Resp 14 06/22/23 13:09 BP 128/90 H 06/22/23 13:09 Pulse Ox 98 06/22/23 13:09 Oxygen Delivery Method Room Air 06/22/23 13:09 BMI result Body Mass Index 22.0 Assessment & Plan Assessment & Plan (1) Osteoporosis: Code(s): M81.0 - Age-related osteoporosis without current pathological fracture (2) Lumbar degenerative disc disease: Code(s): M51.36 - Other intervertebral disc degeneration, lumbar region (3) Chronic pain syndrome: Code(s): G89.4 - Chronic pain syndrome (4) Spondylosis of lumbar spine: Code(s): M47.816 - Spondylosis without myelopathy or radiculopathy, lumbar region Plan: Diagnostic medial branch block L3,L4 dorsal ramus L5 bilateral.? ? ?Informed consent was explained to the patient. All questions were explained and? answered.? The patient was taken inside the operating room where she was positioned prone on the operating table. Time-out was performed delineating correct site, side, the nature of the procedure, patient's allergy, . All operating room staff was participating in OR time-out procedure. ? ? The lower back was prepped with ChloraPrep and draped with sterile towels.? C- arm was brought over the operating field and sq picture of L4-, L5 vertebra and S1 AREA were delineated on the screen.? Point of interest were delineated as confluence of superior articular process of L4 and L5 vertebra bilaterally with corresponding transverse processes as well as confluence of the sacral alae bilaterally with superior articular process of S1.? The projection of the point of interest to the skin were injected with the small amount of local anesthetic lidocaine 2% 1-1.5 cc.? After that 22 gauge 3.5 inch spinal needle was driven sequentially to the points of interest in tunnel vision fashion. After needles gently contacted the bone at the point of interests the needle was injected with small amount of the contrast.? The injection of the contrast did not demonstrate any intravascular or intrathecal spread of the contrast.? After that injection of the? ropivacaine 0.5%-1cc was performed at each needle location.??after that the needles were removed and Bandaids were applied. ? Upon completion of the injections? needle was? removed and sterile Band-Aids were applied.? The patient tolerated procedure very well. (5) Lumbar radiculitis: Code(s): M54.16 - Radiculopathy, lumbar region Plan 1. Endocrinology referral for management of osteoporosis. Patient reports no treatments for osteoporosis since bone scan in August 2022. 2. Lumbar spine CT scan results were discussed with patient in greater detail. Schedule bilateral diagnostic L3-L4 L5 MBBs with local and fluoroscopy. If she has significant relief from the diagnostic blocks for his axial low back pain, will consider Sprint PNS or RFA depending on her preference. All questions were answered patient agreed with the treatment plan. Follow-up after injections and sooner as needed. Anticoagulation: Patient on anticoagulation (Eliquis) and instructions given on when to pause with prescribing physician permission. Justification for interventional therapy: ? Patient with average pain > 6/10 ? Patient has exhausted conservative therapy ? patient is unable to tolerate physical therapy due to significant pain The risks, consequences, alternatives, and benefits of various treatment options were discussed with the patient in great detail, including conservative management, injections and procedures. Orders: Orders FL guidance in treatment room 06/22/23 M47.816 - Spondylosis without myelopathy or radiculopathy, lumbar region Coding Level of Care Code Procedure Only Diagnoses Osteoporosis M81.0 Lumbar degenerative disc disease M51.36 Chronic pain syndrome G89.4 Spondylosis of lumbar spine M47.816 Lumbar radiculitis M54.16
[2023-06-22 13:07] VITALS: BP 130/64; PULSE 74; RESP 14; O2SAT 95; BMI 22.0
[2023-06-22 13:09] VITALS: BP 128/90; PULSE 71; RESP 14; O2SAT 98; BMI 22.0
== END 2023-06-22 12:06 | disposition home or self-care (01) ==
LOC: HO.PMCPRC 10:49
PROVIDERS: PCP Internal Medicine Medical Oncology; Visit Provider Anesthesiology
DX: M47.816 Spondylosis without myelopathy or radiculopathy, lumbar region (principal); G89.4 Chronic pain syndrome
CPT/HCPCS: 64493; 64494

== ENCOUNTER 2023-06-24 13:26 | Outpatient (AMB) | payer OTHER, SELFPAY ==
--- NOTE | 2023-06-24 13:38 | MHC.OFFVIS ---
Intake Vital Signs 06/24/23 13:42 Height 5 ft 4 in Weight 127 lb 2 oz BMI 21.8 BP 127/65 Blood Pressure Location Rt brachial Position Sitting Pulse 94 Pulse Source Pulse Oximeter Pulse Oximetry (%) 98 Oxygen Delivery Method Room Air Intake Visit Reasons: BILAT DX L3-L4-L5 MBB 06/22/23/confirmed Intake Note: Pain today 11/18 Surveillance Investigator Required: No Accompanied by: Daughter Allergies No Known Allergies Allergy (Verified 06/24/23 14:27) HPI HPI Comments History of Present Illness Details Patient presents today to assess response to Bilateral Diagnostic L3-L4-L5 MBB on 06/22/[address] Short. Patient reports 100% pain relief for 5.5 hours after procedure and ongoing 50% pain relief with improved functioning, mobility and sleep. She is interested to repeat diagnostic lumbar medial branch block injections in order to establish reproducible response to the treatment for potential RFA procedure. Patient denies any bladder or bowel incontinence or saddle anesthesia. Past Procedures: 06/22/23: Bilateral Diagnostic L3-L4-L5 MBB-100% pain relief for 5.5 hours PRIOR: Patient is a pleasant 77-year-old female is prior history of lumbar degenerative disc disease and lumbar radiculitis, CVA, osteoporosis, presents today for initial evaluation of chronic low back pain is bilateral radiculopathy. Patient reports she has been followed by [facility] pain management for many years and has received multiple injections for back pain but due to change in insurance in no longer can see her. Patient has history of CVA x2 with residual left-sided weakness and reports her left leg feels heavy constantly. She has long-term on Eliquis and has held that for 3 days prior to injections without any issues. She had L5-S1 REESE and caudal REESE on 09/26/2021 and 10/28/2022 with good results. Pain is axial across her waist and also radiates to both legs posteriorly is associated with burning, numbness and tingling pain in lower extremities and soles of both feet. It interferes with her daily activities, functioning, sleep, and mood. Reports numbness in both buttocks with prolonged sitting. Reports history of fall in September of this year which exacerbated her low back pain but without any new patterns of pain after suffering a ground level fall due to pit bulls attack. Reports history of surgical repair of AAA in 2020. Her lumbar spine MRI she was completed 2020 that showed no significant central canal or foraminal narrowing in L4-L5 or L5-S1 levels. Denies previous back surgery. Patient is interested and therapeutic injections to alleviate her radicular pain. Denies any fever, abdominal or groin pain, bladder or bowel incontinence. Location Chronic low back radiates to bilateral lower extremities, L>R Duration Chronic pain for 21 years Characteristics of symptom or complaint Throbbing, shooting, stabbing, sharp, burning, tingling, heavy, radiating Aggravating or associated factors Walking, saddle anesthesia with prolonged sitting, standing, bending Relieving factors Walker, cane at home; back injections, Tylenol Treatment Back injections at [facility] Pain Management (change in insurance, not accepted) [facility] Medical History Left ulnar fracture COPD (chronic obstructive pulmonary disease) COVID-19 Early satiety Abdominal bloating COPD exacerbation Essential hypertension Precordial chest pain Tachycardia Dyspnea CVA (cerebral vascular accident) COPD (chronic obstructive pulmonary disease) Atherosclerotic cardiovascular disease Psoriasis Hydroureter, right Pernicious anemia Raynauds disease Hernia Emphysema lung Emphysema of lung Asthma History of pyloric channel ulcer Glaucoma Mild acid reflux Surgical History S/P cardiac catheterization H/O carotid endarterectomy (04/01/20) History of AAA (abdominal aortic aneurysm) repair Hx of shoulder surgery Hx of varicose vein stripping Family History Father No problems noted. Mother No problems noted. Sister No problems noted. Sister No problems noted. Sister No problems noted. Sister No problems noted. Sister Cancer Son No problems noted. Social History Alcohol intake: never Patient Tobacco Use Status: Former Tobacco user Quit Date: 2019 Tobacco use type: Cigarette Years Smoked: 65 Second Hand Smoke Exposure: No Advance Directives Date on File: 06/11/21 service: No Current occupational status: retired Review of Systems Const All systems reviewed & are unremarkable except as noted in HPI and below Physical Exam Vital Signs: Last Vital Signs Pulse 94 06/24/23 13:42 BP 127/65 06/24/23 13:42 Pulse Ox 98 06/24/23 13:42 Oxygen Delivery Method Room Air 06/24/23 13:42 BMI result Body Mass Index 21.8 General: Appears afebrile. Alert and oriented. Mood and affect appropriate. Follows and participates in conversation appropriately. Respiratory effort is unlabored. Non-productive cough. No nasal discharge. Able to transition from sit to stand unassisted. Uses cane or walker at home. Back/Spine/Pelvis Other: No midline tenderness to palpation in the thoracic or lumbar spine. Painful facet loading bilaterally. Lumbar extension reproduced mild-moderate low back pain. Lumbar flexion causes mild pain. Cervical Spine: loss of normal cervical lordosis, pain with cervical ROM and No Cervical spine tenderness Thoracic/Lumbar Spine: thoracic and lumbar spine normal to inspection, No Thoracic/lumbar spine scar(s), kyphosis, Lasegue's sign positive on the left and localized, pain with thoraco-lumbar ROM, paraspinal muscle tenderness, thoraco-lumbar ROM limited, No thoracic spinal tenderness and lumbar spinal tenderness Pelvis: no buttock tenderness Sacroiliac joints: bilaterally nontender Assessment & Plan Assessment & Plan (1) Lumbar degenerative disc disease: Code(s): M51.36 - Other intervertebral disc degeneration, lumbar region (2) Chronic pain syndrome: Code(s): G89.4 - Chronic pain syndrome (3) Spondylosis of lumbar spine: Code(s): M47.816 - Spondylosis without myelopathy or radiculopathy, lumbar region Plan Patient is status post diagnostic lumbar media branch blocks with 100% pain relief for 5.5 hours with improved functioning, mobility and sleep. She would like to repeat these injections for potential RFA procedure. Sprint PNS trial was declined by patient due to her current living situation, she lives alone and reports Sprint PNS will not be practical for her. Schedule repeat bilateral diagnostic L3-L4 L5 MBBs with sedation (per patient's request) and fluoroscopy. All questions were answered patient agreed with the treatment plan. Follow-up after injections and sooner as needed. Anticoagulation: Patient on anticoagulation (Eliquis) and instructions given on when to pause with prescribing physician permission. Justification for interventional therapy: ? Patient with average pain > 6/10 ? Patient has exhausted conservative therapy ? Diagnostic lumbar MBBs -100% pain relief for >5 hours The risks, consequences, alternatives, and benefits of various treatment options were discussed with the patient in great detail, including conservative management, injections and procedures. Coding Level of Care Code Est Pt Level 3 (53889) Diagnoses Lumbar degenerative disc disease M51.36 Chronic pain syndrome G89.4 Spondylosis of lumbar spine M47.816
[2023-06-24 13:42] VITALS: BP 127/65; PULSE 94; O2SAT 98; BMI 21.8
== END 2023-06-24 13:52 | disposition home or self-care (01) ==
PROVIDERS: PCP Internal Medicine Medical Oncology; Visit Provider Nurse Practitioner Family
DX: M51.36 Other intervertebral disc degeneration, lumbar region (principal); G89.4 Chronic pain syndrome; M47.816 Spondylosis without myelopathy or radiculopathy, lumbar region
CPT/HCPCS: 99213

== ENCOUNTER → 2023-06-24 13:26 | Outpatient (BNVA) | payer OTHER, MEDICAID, SELFPAY | PROVIDERS: PCP Internal Medicine Medical Oncology; Visit Provider Nurse Practitioner Family | DX: K59.04 Chronic idiopathic constipation (principal); Z53.20 Procedure and treatment not carried out because of patient's decision for unspecified reasons; K21.9 Gastro-esophageal reflux disease without esophagitis; M51.36 Other intervertebral disc degeneration, lumbar region; M47.816 Spondylosis without myelopathy or radiculopathy, lumbar region; G89.4 Chronic pain syndrome | CPT/HCPCS: 99212 ==

== ENCOUNTER 2023-06-24 13:57 | Outpatient (AMB) | payer OTHER, MEDICAID, SELFPAY ==
--- NOTE | 2023-06-24 14:02 | A.OFFVIS_ITS ---
Intake Vital Signs 06/24/23 14:24 Height 5 ft 4 in Weight 128 lb 4.944 oz BMI 22.0 BP 134/63 Blood Pressure Location Rt brachial Position Sitting Pulse 91 Intake Visit Reasons: 6 month follow up Intake Note: Patient presents to in office visit today in 6 months follow up of [facility]. CC: Patient reports doing well today and denies having any GI symptoms. [place] Required: No Accompanied by: Self / Same As Patient Allergies No Known Allergies Allergy (Verified 06/24/23 14:27) HPI 6 month follow up HPI Details Assessment & Plan (1) Chronic idiopathic constipation: Code(s): K59.04 - Chronic idiopathic constipation Plan: She continues to do well. She continues on her2 tabs qsupper to promote better gastric motility and 1 qam and qnoon. She continues on creon for bloating and omeprazole. She will be seeing vascular soon r/t trouble with her blood thinners. She was quite ill recently and was in rehab for a while. She stopped eating and started passing out - they felt that the blood thinners were dropping her BP. She has not had any fainting and she is eating well now. ROV 6 mos. (2) GERD (gastroesophageal reflux diseas e): Code(s): K21.9 - Gastro-esophageal reflux disease without esophagitis TODAY'S VISIT She continues to do well. She continues on her2 tabs qsupper to promote better gastric motility and 1 qam and qnoon. She continues on creon for bloating and omeprazole. She has no new medical conditions to report and remains satisfied with her GI regimen. Return office visit in 6 months. [facility] Medical History Left ulnar fracture COPD (chronic obstructive pulmonary disease) COVID-19 Early satiety Abdominal bloating COPD exacerbation Essential hypertension Precordial chest pain Tachycardia Dyspnea CVA (cerebral vascular accident) COPD (chronic obstructive pulmonary disease) Atherosclerotic cardiovascular disease Psoriasis Hydroureter, right Pernicious anemia Raynauds disease Hernia Emphysema lung Emphysema of lung Asthma History of pyloric channel ulcer Glaucoma Mild acid reflux Surgical History S/P cardiac catheterization H/O carotid endarterectomy (04/01/20) History of AAA (abdominal aortic aneurysm) repair Hx of shoulder surgery Hx of varicose vein stripping Family History Father No problems noted. Mother No problems noted. Sister No problems noted. Sister No problems noted. Sister No problems noted. Sister No problems noted. Sister Cancer Son No problems noted. Social History Alcohol intake: never Patient Tobacco Use Status: Former Tobacco user Quit Date: 2019 Tobacco use type: Cigarette Years Smoked: 65 Second Hand Smoke Exposure: No Advance Directives Date on File: 06/11/21 service: No Current occupational status: retired Review of Systems Const Denies fatigue, Denies fever(s), Denies night sweats, Denies poor appetite, Reports weight gain and Denies weight loss Eyes Details: glasses Reports requires corrective lenses ENT Reports Normal hearing present, Denies dental pain, Denies dysphagia, Denies hearing loss, Denies mouth pain, Denies odynophagia, Denies throat swelling, Denies tongue swelling and Reports other (Dentition adequate) Card Reports no additional complaints Resp Reports no additional complaints GI Denies abdominal pain, Denies melena, Denies bloating, Denies hematochezia, Denies constipation, Denies GI cramping, Denies dysphagia, Denies excessive flatus, Reports early satiety, Reports heartburn, Denies diarrhea, Denies nausea, Denies odynophagia, Denies vomiting and Denies hematemesis Skin/Breast Denies pruritus, Denies lesions, Denies rash and Denies jaundice Neuro Reports Normal hearing present and Denies Abnormal speech present Endo Denies fatigue Aller/Immun Denies throat swelling and Denies tongue swelling Physical Exam Vital Signs: Last Vital Signs Pulse 91 06/24/23 14:24 BP 134/63 06/24/23 14:24 BMI result Body Mass Index 22.0 Const General: cooperative, no acute distress, well developed and well groomed Nutritional Appearance: average body habitus and well nourished Orientation/consciousness: oriented to person, oriented to place and oriented to time Limitations: No language barrier HEENT Head: Yes normocephalic and Yes atraumatic Eyes General: appearance normal, both eyes and all related structures Pupils: Equal, round and reactive pupils present Neck Neck: Yes normal visual inspection and Yes no lymphadenopathy Thyroid: Thyroid normal Resp Effort & Inspection: normal respiratory effort and able to speak in complete sentences Auscultation: clear to auscultation bilaterally Cardio Rate: regular rate Rhythm: regular rhythm Heart sounds: Normal, physiologic split S2 sound present Peripheral pulses: radial pulses present and posterior tibial pulses present GI Inspection: No distended and No Abdominal panniculus present Palpation (GI): Soft to palpation, nontender, no guarding, not rigid and No hepatosplenomegaly present Percussion: Yes normal to percussion Auscultation: normal bowel sounds Rectal Exam - Female: deferred Skin General skin exam: no rashes or lesions noted, turgor normal, skin not dry, no jaundice, No spider nevi and no striae Rashes: no rashes Nails: normal Neuro General: oriented to person, oriented to place and oriented to time Cranial nerves: Yes Equal, round and reactive pupils present and Yes Normal hearing present Speech: No Abnormal speech present Extrem General: Yes normal to inspection, No clubbing, No cyanosis and No edema Psych Appearance: grossly normal and well kempt Mental Status: mental status grossly normal Speech and movement: Normal speech and movement present Affect: normal affect Attitude: cooperative Thought process: Normal thought process present and not confabulating Thought content: Normal thought content present Insight: Limited insight present (Psych) Judgement: Limited judgement present (Psych) Assessment & Plan Assessment & Plan (1) GERD (gastroesophageal reflux disease): Code(s): K21.9 - Gastro-esophageal reflux disease without esophagitis (2) Chronic idiopathic constipation: Code(s): K59.04 - Chronic idiopathic constipation (3) Colonoscopy refused: Comment: pt consistently declines and also declines to do Cologuard Code(s): Z53.20 - Procedure and treatment not carried out because of patient's decision for unspecified reasons Plan She continues to do well. She continues on her2 tabs qsupper to promote better gastric motility and 1 qam and qnoon. She continues on creon for bloating and omeprazole. She has no new medical conditions to report and remains satisfied with her GI regimen. She is offered Cologuard is a screening since she continues to decline colonoscopy and we watch the video but she continues to declined this study as well. Return office visit in 6 months. Medications: New [id number] 24,000-76,000 -120,000 unit (Creon) administer with meals and/or snacks 1 cap PO TID 90 caps 6RF Refilled sennosides (Senokot Extra Strength) 17.2 mg PO BID PRN 30 tabs 0RF constipation omeprazole 20 mg PO BID 180 caps 2RF K21.9 - Gastro-esophageal reflux disease without esophagitis Coding Level of Care Code Est Pt Level 3 (89820) Diagnoses GERD (gastroesophageal reflux disease) K21.9 Chronic idiopathic constipation K59.04 Colonoscopy refused Z53.20
[2023-06-24 14:24] VITALS: BP 134/63; PULSE 91; BMI 22.0
== END 2023-06-24 14:45 | disposition home or self-care (01) ==
PROVIDERS: PCP Internal Medicine Medical Oncology; Visit Provider Nurse Practitioner
DX: K21.9 Gastro-esophageal reflux disease without esophagitis (principal); K59.04 Chronic idiopathic constipation; Z53.20 Procedure and treatment not carried out because of patient's decision for unspecified reasons
CPT/HCPCS: 99213

== ENCOUNTER 2023-06-29 08:11 | Outpatient (REF) | payer OTHER, MEDICAID, SELFPAY ==
[2023-06-29 08:30] LABS: MANUAL DIFF FLAG NO
[2023-06-29 08:45] LABS: Basophils Percent Auto 0.5 % (0-2); Eosinophils Absolute Auto 0.2 X10*3/uL (0.0-0.4); Eosinophils Percent Auto 3.6 % (0-4); Hematocrit 40.3 % (37.0-47.0); Hemoglobin 12.2 g/dl (12.0-16.0); Imm Gran Abs Auto 0.01 X10*3/uL (0.00-0.03); Imm Gran Pct Auto 0.2 % (0.0-0.4); Lymphocytes Percent Auto 18.1 % (20-40); Mean Corpuscular HGB Conc 30.3 g/dl (31.0-35.0); Mean Corpuscular Hemoglobin 26.3 pg (27.0-33.0); Mean Platelet Volume 11.6 fL (9.4-12.3); Monocytes Absolute Auto 0.4 X10*3/uL (0.1-1.2); Monocytes Percent Auto 7.2 % (2-11); Neutrophils Absolute Auto 3.9 x10*3/uL (2.0-8.3); Neutrophils Percent Auto 70.4 % (45-73); Platelet Count 205 X10*3/uL (160-400); Red Blood Count 4.63 X10*6/uL (4.20-5.50); Red Cell Distribution Width 15.1 % (11.0-16.0); White Blood Count 5.5 X10*3/uL (4.8-10.8)
[2023-06-29 09:23] LABS: Alanine Aminotransferase 9 U/L (0-31); Albumin Level 4.1 g/dL (3.5-5.0); Alkaline Phosphatase 132 U/L (39-117); Anion Gap 13 (12-20); Aspartate Amino Transferase 17 U/L (5-31); Bilirubin Total 0.6 mg/dL (0.0-1.0); Blood Urea Nitrogen 15 mg/dL (9-16); Calcium 9.5 mg/dL (8.4-10.2); Carbon Dioxide 28 mmol/L (22-29); Chloride 107 mmol/L (96-108); Cholesterol 158 mg/dL (<200); Estimated Glomerular Filt Rate > 60; Glucose Fasting 109 mg/dL (60-99); HDL Cholesterol 67 mg/dL (>40); LDL Cholesterol Calculated 73 mg/dL (<100); Potassium 4.6 mmol/L (3.3-5.1); Sodium 143 mmol/L (135-145); Total Protein 7.5 g/dL (6.5-8.0); Triglycerides 91 mg/dL (<150)
[2023-06-29 09:29] LABS: Vitamin D 25-OH Total 13.7 ng/mL (>30)
== END 2023-06-29 08:12 | disposition home or self-care (01) ==
LOC: HO.LAB 08:11
PROVIDERS: PCP Internal Medicine Medical Oncology; Visit Provider Internal Medicine Medical Oncology
DX: I10 Essential (primary) hypertension (principal); D50.9 Iron deficiency anemia, unspecified; E53.8 Deficiency of other specified B group vitamins; Z87.19 Personal history of other diseases of the digestive system
CPT/HCPCS: 36415; 80053; 80061; 82306; 85025

== ENCOUNTER 2023-08-16 14:48 | Emergency (ER) | payer OTHER, SELFPAY ==
--- NOTE | ~2023-08-16 | US_ITS ---
EXAMINATION: US VENOUS ULTRASOUND WITH DOPPLER LOWER EXTREMITY, LEFT CLINICAL INFORMATION: , Pain. History of DVT. COMPARISON: Negative ultrasound left lower extremity venous study 06/04/2020 TECHNIQUE: Ultrasound of the deep veins is performed from the hip to the calf with compression sonography and color and pulse Doppler assessment. Spectral analysis with color-flow imaging is performed. FINDINGS: There is normal venous compression and respiratory variation and augmented flow. The visualized common femoral vein, superficial femoral vein, profunda femoral vein, popliteal vein, and the trifurcation region shows no evidence of deep venous thrombosis. Left greater saphenous vein is not seen, question previous venous ablation procedure. Correlate clinically. There is no significant popliteal fossa cyst. If the patient's symptoms persist, followup ultrasound in 5 days 7 days might be of value to exclude proximal propagation from a non-visualized calf vein. US/US venous duplex LE IMPRESSION: No DVT demonstrated in the left lower extremity. The left greater saphenous vein is not seen. Correlate if patient had any venous ablation procedure.
[2023-08-16 15:33] VITALS: BP 172/77; PULSE 85; RESP 18; TEMP 36.7; O2SAT 95; BMI 21.9
--- NOTE | 2023-08-16 16:18 | ED.GENADULT ---
HPI - General Adult General Chief complaint: Extremity Injury, Lower Stated complaint: DVT? L leg swelling Time Seen by Provider: 08/16/23 21:14 Source: patient, RN notes reviewed and old records reviewed Mode of arrival: ambulatory Limitations: no limitations History of Present Illness HPI narrative: 78-year-old female presents for evaluation of left leg pain. Patient reports the pain has been present for several weeks. She is on Eliquis for history of DVT She denies any trauma to the area. She reports redness and swelling to the left lower leg from the knee down Patient reports a previous surgery in her right leg vasculature when she was 12 years old and also follows with Dr. Marion for vascular surgery Denies any fevers or chills Related Data Home Medications Medication Instructions Recorded Confirmed atorvastatin 80 mg tablet 80 mg PO DAILY 04/18/20 05/14/23 latanoprost 0.005 % eye drops 1 drp ophthalmic (eye) BEDTIME 07/02/22 05/14/23 ondansetron 4 mg disintegrating 4 mg PO Q8H PRN Nausea And Vomiting 09/11/22 05/14/23 tablet lisinopril 10 mg tablet 10 mg PO DAILY 10/16/22 05/14/23 nebulizers 12/18/22 05/14/23 calcium carbonate 500 mg calcium 500 mg PO BID 06/24/23 (1,250 mg) tablet vitamin B complex (B 1 tab PO DAILY 06/24/23 Complex-Vitamin B12 tablet) Previous Rx's Medication Instructions Recorded apixaban 5 mg tablet (Eliquis) 5 mg PO BID #60 tabs 11/17/21 albuterol sulfate 90 mcg/actuation 1 inh inhalation QID PRN shortness 06/12/22 aerosol inhaler of breath or wheezing #8.5 grams fluticasone propionate 115 2 puff inhalation Q12H 30 days #12 06/12/22 mcg-salmeterol 21 mcg/actuation grams HFA inhaler (Advair HFA) umeclidinium 62.5 mcg/actuation 1 inh inhalation DAILY 30 days #30 06/18/23 blister powder for inhalation ea (Incruse Ellipta) yyuhev-[id number]-bpwlhlz 1 cap PO TID #90 caps 06/24/23 24,000-76,000-120,000 unit capsule,delayed rel (Creon) omeprazole 20 mg capsule,delayed 20 mg PO BID #180 caps 06/24/23 release sennosides 17.2 mg tablet (Senokot 17.2 mg PO BID PRN constipation 06/24/23 Extra Strength) #30 tabs Allergies Allergy/AdvReac Type Severity Reaction Status Date / Time No Known Allergies Allergy Verified 06/24/23 14:27 Review of Systems Constitutional: Constitutional: Denies chills and Denies fever(s) Cardiovascular: Cardiovascular: Denies chest pain and Denies dyspnea Respiratory: Respiratory: Denies cough and Denies dyspnea Gastrointestinal: Gastrointestinal: Denies abdominal pain, Denies nausea and Denies vomiting Musculoskeletal: Musculoskeletal: Denies back pain Integumentary/Breasts: Skin/Breast: Reports erythema and Denies rash PMF Past Medical History Medical History Left ulnar fracture COPD (chronic obstructive pulmonary disease) COVID-19 Early satiety Abdominal bloating COPD exacerbation Essential hypertension Precordial chest pain Tachycardia Dyspnea CVA (cerebral vascular accident) COPD (chronic obstructive pulmonary disease) Atherosclerotic cardiovascular disease Psoriasis Hydroureter, right Pernicious anemia Raynauds disease Hernia Emphysema lung Emphysema of lung Asthma History of pyloric channel ulcer Glaucoma Mild acid reflux Surgical History S/P cardiac catheterization H/O carotid endarterectomy (04/01/20) History of AAA (abdominal aortic aneurysm) repair Hx of shoulder surgery Hx of varicose vein stripping Family History Family History Father No problems noted. Mother No problems noted. Sister No problems noted. Sister No problems noted. Sister No problems noted. Sister No problems noted. Sister Cancer Son No problems noted. Social History Social History Alcohol intake: never Patient Tobacco Use Status: Former Tobacco user Quit Date: 2019 Tobacco use type: Cigarette Years Smoked: 65 Second Hand Smoke Exposure: No Advance Directives: Yes Advance Directives on File: Yes Advance Directives Date on File: 06/11/21 service: No Current occupational status: retired Physical Exam ED Vital Signs: Vital Signs - 24 hr 08/16/23 15:33 08/16/23 18:10 08/16/23 20:29 Temperature 98.1 F 97.9 F Pulse Rate 85 96 93 Respiratory Rate 18 18 17 Blood Pressure 172/77 H 147/64 H 128/52 L Pulse Oximetry 95 95 98 Oxygen Delivery Method Room Air Room Air Room Air BMI result Body Mass Index 21.9 Const General: healthy appearing, comfortable, no acute distress, alert and awake Nutritional Appearance: well nourished Orientation/consciousness: patient oriented x3 HENMT Head: Yes normocephalic and Yes atraumatic Eyes Eyelids: Yes eyelids normal Conjunctivae: conjunctivae normal Sclerae: sclerae normal Corneas: corneas normal Pupils: Equal, round and reactive pupils present EOM: EOMs intact bilaterally Neck Neck: Yes full ROM Resp Effort & Inspection: normal respiratory effort, able to speak in complete sentences and not labored Cardio Other: DP and PT pulses 2+ and equal Skin Other: Patient has mild erythema to left lower extremity, no significant beefy red erythema, no wounds. There is no significant edema. Patient has multiple varicosities. General skin exam: elasticity normal Neuro General: patient oriented x3 Cranial nerves: Yes Equal, round and reactive pupils present and Yes Bilaterally intact EOM present Cognition (Neuro): normal cognition Extrem Other: Moving all extremities well without any obvious deformities Course Course Course Narrative: This is an RME: Additional HPI, ROS, PE not included below will be deferred to primary provider. This is a 78-year-old female presenting to the emergency department with complaints of left lower extremity weakness, swelling and pain for the last 5 weeks. She has a history blood clots, currently on Eliquis, denies any missed dosages. Chest pain or shortness a breath palpation no induration or warmth to the left leg. Plan: Ultrasound left leg Medical Decision Making Medical Decision Making MDM Narrative: 78-year-old female presents for evaluation of left leg pain. Her ultrasound is negative for DVT, the physical exam is not consistent with cellulitis. She has good, palpable pulses and good color to the foot. Patient's pain is possibly related to the varicosities versus neuropathy but she denies any history of this. She will be discharged with symptomatic treatment and will follow-up with her vascular specialist Differential Diagnosis Differential Diagnoses: The differential diagnosis associated with the presentation includes Left leg pain DVT Myopathy Neuropathy Cellulitis Gout Radiology Impression Discussion of test interpretation with radiology: I have reviewed the radiologist's reading. (Ultrasound negative for DVT) Discharge Plan Discharge Clinical Impression: Left leg pain Patient Disposition: Home, Self-Care Instructions: Leg Pain (ED) Additional Instructions: Your ultrasound showed no evidence of DVT/blood clot. Follow-up with Dr. Wolfe, vascular surgery You may continue to use Tylenol and tramadol at home for pain Return for new or worsening symptoms Prescriptions: No Action Eliquis 5 mg tablet 5 mg PO BID Qty: 60 3RF ondansetron 4 mg tablet,disintegrating 4 mg PO Q8H PRN (Reason: Nausea And Vomiting) atorvastatin 80 mg tablet 80 mg PO DAILY Advair HFA 115-21 mcg/actuation HFA aerosol inhaler 2 puff inhalation Q12H 30 Days Qty: 12 11RF albuterol sulfate 90 mcg/actuation HFA aerosol inhaler 1 inh inhalation QID PRN (Reason: shortness of breath or wheezing) Qty: 8.5 11RF latanoprost 0.005 % drops 1 drp ophthalmic (eye) BEDTIME Rx Instructions: One eye drop in each eye at bedtime. (DME) nebulizers Misc See Rx Instructions .Route Rx Instructions: As directed vitamin B complex [B Complex-Vitamin B12] Tablet 1 tab PO DAILY Senokot Extra Strength 17.2 mg tablet 17.2 mg PO BID PRN (Reason: constipation) Qty: 30 0RF omeprazole 20 mg capsule,delayed release(DR/EC) 20 mg PO BID Qty: 180 2RF Creon 24,000-76,000 -120,000 unit capsule,delayed release(DR/EC) 1 cap PO TID Qty: 90 6RF Rx Instructions: administer with meals and/or snacks lisinopril 10 mg tablet 10 mg PO DAILY Incruse Ellipta 62.5 mcg/actuation blister with device 1 inh inhalation DAILY 30 Days Qty: 30 11RF calcium carbonate 500 mg calcium (1,250 mg) tablet 500 mg PO BID Interventions: ED Discharge Assessment Last Done: 08/16/23 21:31 Discharge Date/Time: 08/16/23 21:33
[2023-08-16 18:10] VITALS: BP 147/64; PULSE 96; RESP 18; TEMP 36.6; O2SAT 95
[2023-08-16 20:29] VITALS: BP 128/52; PULSE 93; RESP 17; O2SAT 98
== END 2023-08-16 21:33 | disposition home or self-care (01) ==
PROVIDERS: Emergency Provider Internal Medicine; PCP Physician Assistant
DX: M79.605 Pain in left leg (principal); R60.0 Localized edema
CPT/HCPCS: 93971; 99284

== ENCOUNTER → 2023-10-12 08:48 | Outpatient (REF) | payer OTHER, SELFPAY ==
--- NOTE | 2023-10-12 08:55 | CA_ITS ---
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 Normal LV ejection fraction of 65-70% with impaired relaxation filling pattern 2. Moderate aortic stenosis 3. Upper limits of normal RV systolic pressure 4. No gross pericardial effusion Findings Procedure Information The study quality is limited by the patients inability to tolerate the test. Left Ventricle Normal left ventricular size, thickness, and systolic function. The visually estimated ejection fraction is between 65-70%. Spectral Doppler is indicative of an impaired relaxation filling pattern. E/E prime ratio is between 8 and 15 consistent with indeterminate filling pressures. Right Ventricle Normal right ventricular cavity size and systolic function. Atria The left atrium is likely dilated. Interatrial shunt cannot be excluded. The right atrium is normal in size. Aortic Valve There is moderate calcification of the aortic valve. There is moderate thickening of the aortic valve. There is moderate aortic valve stenosis. The peak aortic gradient is 47 mmHg.The mean gradient is 28 mmHg. The aortic valve area is 1.34 cm2. There is mild aortic valve regurgitation. Mitral Valve There is mild anterior and moderate posterior mitral leaflet thickening. There is moderate mitral annular calcification. There is trace mitral valve regurgitation. There is no mitral valve stenosis. Pulmonic Valve The pulmonic valve is likely normal. Tricuspid Valve Normal tricuspid valve structure. There is mild tricuspid valve regurgitation. Normal right atrial pressure. There is no evidence of pulmonary hypertension. Great Vessels All visible segments of the aorta are normal in size. The pulmonary artery was not well visualized. There is no dilatation of the ascending aorta measuring 3.00 cm. Venous The inferior vena cava is normal in size and collapses greater than 50% with inspiration. Pericardium/Pleural There is no evidence of pericardial effusion. Prior Study Comparison No significant change compared to prior study dated: 09/12/2022. Measurements 2D Linear Measurements IVSd: 1.08 0.6-0.9/0.6-1.0 cm LVIDd: 3.75 3.9-5.3/4.2-5.9 cm LVIDd Index: 2.33 2.4-3.2/2.2-3.1 cm/m2 LVIDs: 2.57 2.0-3.6 cm LVPWd: 0.95 0.7-1.1 cm LA Diam: 3.50 2.7-3.8/3.0-4.0 cm LAIDs Index: 2.17 1.5-2.3 cm/m2 LV Mass: 146.40 67-162/88-224 g LV Mass Index: 90.93 43-95/49-115 g/m2 LVOT Diam: 2.20 3.0+(-)1.3 cm 2D Systolic Function EF 4C: 71.10 >55% Mitral Valve MV VTI: 0.25 MV Pk Leonardo: 1.53 MV Mn Leonardo: 1.01 MV Pk Grad: 9.00 MV Mn Grad: 5.00 MV Pk E: 0.98 MV PK A: 1.16 MV Decel Time: 223.00 E/A: 0.80 E'Lateral: 2.87 E'Medial: 2.99 E/E' Med: 32.60 E/E' Lat: 34.00 PHT: 65.00 MVA PHT: 3.38 MVA Continuity: 3.51 Decel Summers: 4.43 Aortic Valve AoV Pk Leonardo: 3.44 AoV Mn Elonardo: 2.49 AoV VTI: 0.66 AoV Pk Grad: 47.00 Aov Mn Grad: 28.00 PHILOMENA Cont.VTI: 1.34 AI Pk Leonardo: 4.31 AI Summers: 2.42 LVOT LVOT Pk Leonardo: 1.35 LVOT Mn Leonardo: 0.89 LVOT VTI: 0.23 LVOT Pk Grad: 7.00 LVOT Mn Grad: 4.00 LVOT Diam: 2.20 LVOT Area: 3.80 Diastolic Function MV Pk E: 0.98 MV Pk A: 1.16 E/A: 0.80 E'Medial: 2.99 E/E' Med: 32.60 E' Laterial: 2.87 E/E' Lat: 34.00 Right Ventricle TAPSE (mm): 19.30 TVS' Leonardo: 13.70 Tricuspid Valve TR Pk Leonardo: 2.89 TR Pk Grad: 33.00 RA Press: 3.00 RVSP: 36.00 Great Vessels Aorta Sinus of Valsalva: 2.86 2.0-3.5 cm Ao Asc: 3.00 2.1-3.4 cm Updated in Other Vendor System with Status of Final Dakota Jeong MD electronically signed on 10/13/2023 2:28:22 PM with status of Final
== END ==
LOC: HO.CARD 08:48
PROVIDERS: PCP Physician Assistant; Visit Provider Internal Medicine
DX: I35.0 Nonrheumatic aortic (valve) stenosis (principal)
CPT/HCPCS: 93306

== ENCOUNTER → 2023-10-12 08:55 | Outpatient (BNV) | payer OTHER, SELFPAY | PROVIDERS: PCP Physician Assistant; Visit Provider Internal Medicine Cardiovascular Disease | DX: I35.0 Nonrheumatic aortic (valve) stenosis (principal) | CPT/HCPCS: 93306 ==

== ENCOUNTER 2023-10-21 07:56 | Outpatient (AMB) | payer OTHER, SELFPAY ==
[2023-10-21 08:13] VITALS: BP 138/70; PULSE 88; O2SAT 90; BMI 22.1
--- NOTE | 2023-10-21 08:13 | MHC.PC.OV ---
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 Required: No Accompanied by: Niece/ CHOIRMASTER/ Health care proxy Allergies No Known Allergies Allergy (Verified 10/21/23 08:27) Medication List - Last Reconciled 10/21/23 by Pipe Washburn PA-C albuterol sulfate 90 mcg/actuation 1 inh inhalation QID PRN apixaban (Eliquis) 5 mg PO BID atorvastatin 80 mg PO DAILY calcium carbonate 500 mg PO BID fluticasone propion-salmeterol 115-21 mcg/actuation (Advair HFA) 2 puffs inhalation Q12H 30 days latanoprost 0.005% 1 drp ophthalmic (eye) BEDTIME pnqfgn-yiwwlizg-nxalehi 24,000-76,000 -120,000 unit (Creon) 1 cap PO TID lisinopril 10 mg PO DAILY nebulizers As directed nitroglycerin 0.4 mg sublingual Q5M PRN omeprazole 20 mg PO BID ondansetron 4 mg PO Q8H PRN sennosides (Senokot Extra Strength) 17.2 mg PO BID PRN umeclidinium 62.5 mcg/actuation (Incruse Ellipta) 1 inh inhalation DAILY 30 days vitamin B complex (B Complex-Vitamin B12 tablet) 1 tab PO DAILY Tobacco use date assessed: 10/21/23 Fall risk assessment: No Falls in past year Last assessed Fall Risk: 10/21/23 Dental Screening Dental Screen Date: 10/21/23 Did you have a dental visit in the last 12 months?: No Did you have a dental problem in the last 6 months where you did not have access to dental care?: No Was dental information given to patient?: No 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 Patient has multiple medical problems including osteoporosis, lumbar spondylosis and stenosis, COPD, history of DVT on Eliquis, peripheral arterial disease, carotid stenosis hypertension, hyperlipidemia. .. Lumbar spondylosis: Patient followed by [place] pain management and has received injections. She reports she has stopped seeing pain management as she is not interested in any further injections or nerve ablations. .. COPD: Patient followed by pulmonology here in [place], was a former smoker (4 packs a day) Continues on maintenance inhalers with decent affect. Does seem to desat during physical activity. .. DVT : Continues on Eliquis. No overt signs of bleeding mention. Also followed by vascular surgeon. Has had multiple vascular surgeries including abdominal aortic aneurysm repair and carotid endarterectomy. .. Hypertension: Blood pressure today in office acceptable, she does report at times having chest discomforts to which she uses nitro which helps relieve her pain. She will discuss this with her cpc coder as she may be showing signs of coronary artery stenosis. Today filled out MOLST form--> full code is her wishes. [facility] Medical History Left ulnar fracture COPD (chronic obstructive pulmonary disease) COVID-19 Early satiety Abdominal bloating COPD exacerbation Essential hypertension Precordial chest pain Tachycardia Dyspnea CVA (cerebral vascular accident) COPD (chronic obstructive pulmonary disease) Atherosclerotic cardiovascular disease Psoriasis Hydroureter, right Pernicious anemia Raynauds disease Hernia Emphysema lung Emphysema of lung Asthma History of pyloric channel ulcer Glaucoma Mild acid reflux Surgical History S/P cardiac catheterization H/O carotid endarterectomy (04/01/20) History of AAA (abdominal aortic aneurysm) repair Hx of shoulder surgery Hx of varicose vein stripping Family History Father No problems noted. Mother No problems noted. Sister No problems noted. Sister No problems noted. Sister No problems noted. Sister No problems noted. Sister Cancer Son No problems noted. Social History Housing: House Alcohol intake: never Patient Tobacco Use Status: Former Tobacco user Quit Date: 2019 Tobacco use type: Cigarette Years Smoked: 65 e-Cigarette/Vaping Use: Never Used Second Hand Smoke Exposure: No Advance Directives Date on File: 06/11/21 service: No Current occupational status: retired Cognitive needs: Yes Hearing needs: No Vision needs: Yes Questionnaire PHQ-9 Over the last 2 weeks, how often have you been bothered by any of the following problems? 1. Little interest or pleasure in doing things: not at all 2. Feeling down, depressed, or hopeless: not at all 3. Trouble falling or staying asleep, or sleeping too much: not at all 4. Feeling tired or having little energy: not at all 5. Poor appetite or overeating: not at all 6. Feeling bad about yourself - or that you are a failure or have let yourself or your family down: not at all 7. Trouble concentrating on things, such as reading the newspaper or watching television: not at all 8. Moving or speaking so slowly that other people could have noticed. Or the opposite - being so fidgety or restless that you have been moving around a lot more than usual: not at all 9. Thoughts that you would be better off or of hurting yourself in some way: not at all Total score: 0 Depression Screening Interpretation: Negative Depression Screening Done: Yes 16894 - PHQ-9 Billing: Yes Source: Developed by Drs. Wallace Nathan, Maddi Steven, Codey Miller and colleagues, with an educational zachary from [employer]. Thrive Questionnaire Date Thrive assessed: 10/21/23 I am a: Patient What is your living situation today?: I have a steady place to live Within the past 12 months, did the food you bought not last and you didn't have the money to get more?: Never true Within the past 12 months, did you worry whether your food would run out before you got money to buy more?: Never true Do you have trouble paying for medicines?: No Do you have trouble getting transportation to medical appointments?: No Do you have trouble paying your heating and electricity bill?: No Do you have trouble taking care of your child, family member or friend?: No Do you have trouble with day-to-day activities such as bathing, preparing meals, shopping, managing finances, etc.?: Yes Are you currently unemployed and looking for a job?: No Are you interested in more education?: No Please select the resources that you would like help with: None Currently or been in a relationship where the following occur: no concerns reported THRIVE Score: 0 AUDIT C Alcohol Use Questionnaire (AUDIT-C) 1. How often do you have a drink containing alcohol?: Never Total Score: 0 CHARLES-7 AMB Questionnaire CHARLES-7 Date CHARLES - 7 assessed: 10/21/23 Feeling nervous, anxious, or on edge: 0 = Not at all Not being able to stop or control worryin = Not at all Worrying too much about different things: 0 = Not at all Trouble relaxin = Not at all Being so restless that it is hard to sit still: 0 = Not at all Becoming easily annoyed or irritable: 0 = Not at all Feeling afraid as if something awful might happen: 0 = Not at all Total CHARLES-7 score (0-4 normal; 5-9 mild; 10-14 moderate; 15-21 severe): 0 Source: Developed by Drs. Wallace Nathan, Maddi Steven, Codey Miller and colleagues, with an educational zachary from [employer]. CHARLES-7 Assessment Billing CHARLES-7 Assessment Tool: CHARLES-7 Assessment 67590 Review of Systems Const Denies headache(s) Eyes Denies loss of vision ENT Denies vertigo, Denies dizziness, Denies headache(s) and Denies sore throat Card Denies chest pain, Denies leg edema and Denies lightheadedness Resp Denies cough, Denies hemoptysis and Denies wheezing GI Denies abdominal pain, Denies melena, Denies constipation, Denies diarrhea and Denies vomiting Denies urinary frequency, Denies dysuria and Denies urinary urgency Musc Denies arthralgias, Denies joint swelling, Denies numbness and Denies tingling Neuro Denies Abnormal speech present, Denies behavioral changes, Denies vertigo, Denies dizziness, Denies headache(s), Denies loss of vision, Denies memory loss, Denies numbness and Denies tingling Psych Denies anxiety, Denies behavioral changes, Denies depression, Denies memory loss and Denies panic attacks Edwardo/Lymph Denies easy bleeding and Denies easy bruising Aller/Immun Denies wheezing Physical exam (Primary Care) Vital Signs: Last Vital Signs Pulse 88 10/21/23 08:13 BP 138/70 10/21/23 08:13 Pulse Ox 90 L 10/21/23 08:13 Oxygen Delivery Method Room Air 10/21/23 08:13 BMI result Body Mass Index 22.1 Tobacco/Smoking Status: Tobacco use Status Tobacco use date assessed 10/21/23 10/21/23 08:25 Patient Tobacco Use Status Former Tobacco user 10/21/23 08:25 Tobacco use type Cigarette 10/21/23 08:25 e-Cigarette/Vaping Use Never Used 10/21/23 08:25 PHQ-9: PHQ-9 Score PHQ-9: Total score 0 10/21/23 08:30 Depression Screening Interpretation: Negative Thrive Assessment: Date of Thrive Assessment Date Thrive assessed 10/21/23 10/21/23 08:25 Currently or been in a relationship where the following occur: no concerns reported Const General: healthy appearing, no acute distress, alert and awake Nutritional Appearance: well nourished Orientation/consciousness: oriented to person, oriented to place and oriented to time HENMT Ears: TM's normal bilaterally General nose exam: Normal nasal mucous membranes and turbinates present Eyes Conjunctivae: conjunctivae normal Sclerae: sclerae normal Pupils: Equal, round and reactive pupils present Neck Neck: Yes no lymphadenopathy and Yes no JVD Thyroid: Thyroid normal Carotids: no bruits Resp Effort & Inspection: normal respiratory effort and not tachypneic Auscultation: no crackles, no rales, no rhonchi and no wheezes Cardio Rate: regular rate Rhythm: regular rhythm Heart sounds: no murmurs and normal S1 and S2 GI Palpation (GI): Soft to palpation, nontender, no hepatomegaly and no splenomegaly Auscultation: normal bowel sounds Back/Spine/Pelvis Other: AMBULATES WITH A CANE FOR ASSISTANCE LIMITED RANGE OF MOTION LUMBAR SPINE DUE TO PAIN AND STIFFNESS. Skin General skin exam: no rashes or lesions noted and dry skin Neuro General: oriented to person, oriented to place and oriented to time Cranial nerves: Yes Equal, round and reactive pupils present Speech: No Abnormal speech present Gait exam (Neuro): Normal gait present Motor exam (neuro): no tremor noted Extrem Right upper extremity: full ROM Left upper extremity: full ROM Right lower extremity: full ROM; no edema Left lower extremity: full ROM; no edema Psych Mental Status: mental status grossly normal Speech and movement: Normal speech and movement present Affect: normal affect Attitude: cooperative Thought process: Normal thought process present Assessment and Plan Assessment & Plan (1) Hypertension: Code(s): I10 - Essential (primary) hypertension Qualifiers: Hypertension type: primary hypertension Qualified Code(s): I10 - Essential (primary) hypertension (2) 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 Continues on blood pressure control, high potency statin and anticoagulation. 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 Continues to follow a vascular surgeon here in [place]. (4) Hyperlipidemia: Code(s): E78.5 - Hyperlipidemia, unspecified Qualifiers: Hyperlipidemia type: mixed hyperlipidemia Qualified Code(s): E78.2 - Mixed hyperlipidemia Plan: Patient continues on high potency statin. Goal LDL is to be optimally below 70 due to her multiple comorbidities and history of stroke. (5) Emphysema of lung: Code(s): J43.9 - Emphysema, unspecified Qualifiers: Emphysema type: centrilobular Qualified Code(s): J43.2 - Centrilobular emphysema Plan: Patient continues to follow pulmonology. Continues on maintenance inhalers with decent affect on reducing or shortness a breath and cough. She is a former smoker of 4 packs per day. (6) Multi-vessel coronary artery stenosis: Code(s): I25.10 - Atherosclerotic heart disease of [place] coronary artery without angina pectoris Plan: Patient does report having to use more nitro as of late due to chest discomforts. She will discuss this with her cpc coder. Did have a cardiac catheterization in 2021 showing multilevel vessel stenosis. Orders: Orders Microalbumin, Random (w Creat) Today I10 - Essential (primary) hypertension Lipid Panel Today E78.5 - Hyperlipidemia, unspecified Comprehensive [place]. 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
== END 2023-10-21 09:05 | disposition home or self-care (01) ==
PROVIDERS: PCP Physician Assistant; Visit Provider Physician Assistant
DX: I10 Essential (primary) hypertension (principal); I82.531 Chronic embolism and thrombosis of right popliteal vein; E78.2 Mixed hyperlipidemia; J43.2 Centrilobular emphysema; I25.10 Atherosclerotic heart disease of native coronary artery without angina pectoris
CPT/HCPCS: 99204

== ENCOUNTER 2023-10-27 12:29 | Outpatient (AMB) | payer OTHER, MEDICAID, SELFPAY ==
[2023-10-27 12:37] VITALS: BP 136/64; PULSE 92; BMI 21.7
--- NOTE | 2023-10-27 12:37 | A.OFFVIS_ITS ---
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 Required: No Accompanied by: Self / Same As Patient Allergies No Known Allergies Allergy (Verified 10/21/23 08:27) Medication List - Last Reconciled 10/27/23 by Bucky Lawler MD albuterol sulfate 90 mcg/actuation 1 inh inhalation QID PRN aspirin (Adult Aspirin Regimen) 81 mg PO DAILY atorvastatin 80 mg PO DAILY calcium carbonate 500 mg PO BID fluticasone propion-salmeterol 115-21 mcg/actuation (Advair HFA) 2 puffs inhalation Q12H 30 days latanoprost 0.005% 1 drp ophthalmic (eye) BEDTIME iighyr-[id number]-[id number] 24,000-76,000 -120,000 unit (Creon) 1 cap PO TID lisinopril 10 mg PO DAILY nebulizers As directed nitroglycerin 0.4 mg sublingual Q5M PRN omeprazole 20 mg PO BID ondansetron 4 mg PO Q8H PRN sennosides (Senokot Extra Strength) 17.2 mg PO BID PRN umeclidinium 62.5 mcg/actuation (Incruse Ellipta) 1 inh inhalation DAILY 30 days vitamin B complex (B Complex-Vitamin B12 tablet) 1 tab PO DAILY HPI HPI Comments History of Present Illness Details Bridget returns for follow-up regarding coronary artery disease. She also has vascular disease. Also has significant emphysema. She has longstanding shortness of breath related to her pulmonary issues but no clear- cut angina. Since the last visit, she states she is generally doing fine. Rare episodes of angina and she states she has taken nitroglycerin only twice in the last year. Shortness of breath is just about the same as before. In the past, she was having syncopal episodes and after that, lisinopril dose was decreased due to concerns for low blood pressure. [facility] Medical History Left ulnar fracture COPD (chronic obstructive pulmonary disease) COVID-19 Early satiety Abdominal bloating COPD exacerbation Essential hypertension Precordial chest pain Tachycardia Dyspnea CVA (cerebral vascular accident) COPD (chronic obstructive pulmonary disease) Atherosclerotic cardiovascular disease Psoriasis Hydroureter, right Pernicious anemia Raynauds disease Hernia Emphysema lung Emphysema of lung Asthma History of pyloric channel ulcer Glaucoma Mild acid reflux Surgical History S/P cardiac catheterization H/O carotid endarterectomy (04/01/20) History of AAA (abdominal aortic aneurysm) repair Hx of shoulder surgery Hx of varicose vein stripping Family History Father No problems noted. Mother No problems noted. Sister No problems noted. Sister No problems noted. Sister No problems noted. Sister No problems noted. Sister Cancer Son No problems noted. Social History Housing: House Alcohol intake: never Patient Tobacco Use Status: Former Tobacco user Quit Date: 2019 Tobacco use type: Cigarette Years Smoked: 65 e-Cigarette/Vaping Use: Never Used Second Hand Smoke Exposure: No Advance Directives Date on File: 06/11/21 service: No Current occupational status: retired Cognitive needs: Yes Hearing needs: No Vision needs: Yes Review of Systems Const Denies chills, Denies fatigue, Denies fever(s), Denies frequent falls, Denies weakness, Denies weight gain and Denies weight loss ENT Denies dizziness Card Denies chest pain, Denies leg edema, Denies lightheadedness, Denies palpitations, Denies dyspnea and Denies dyspnea on exertion Resp Denies cough, Denies dyspnea and Denies dyspnea on exertion GI Denies hematochezia Musc Denies abnormal gait, Denies muscle weakness, Denies numbness, Denies radiating pain into limb and Denies tingling Neuro Denies abnormal gait, Denies dizziness, Denies frequent falls, Denies numbness, Denies tingling and Denies weakness Endo Denies fatigue and Denies palpitations Physical Exam Vital Signs: Last Vital Signs Pulse 92 10/27/23 12:37 BP 136/64 10/27/23 12:37 BMI result Body Mass Index 21.7 Const General: comfortable and no acute distress Orientation/consciousness: patient oriented x3 HEENT Other: Unremarkable Head: Yes normal to inspection Neck Neck: Yes normal visual inspection Chest Chest palpation & inspection: normal inspection of the chest Resp Auscultation: clear to auscultation bilaterally Cardio Palpation: normal PMI Heart sounds: S1 normal heart sound present, S2 normal heart sound present, no gallops, Murmur heart sound present systolic II/ and at the right sternal border and no rubs GI Palpation (GI): Soft to palpation Back/Spine/Pelvis Other: unremarkable Skin General skin exam: no rashes or lesions noted Neuro General: patient oriented x3 Extrem General: Yes normal to inspection Psych Mental Status: mental status grossly normal Office Procedures EKG Details: EKG with sinus rhythm at 92/Min; sinus arrhythmia; rightward axis; no significant ST-T changes and otherwise unremarkable. [place] [id number], Complete Assessment & Plan Assessment & Plan (1) Atherosclerotic cardiovascular disease: Code(s): I25.10 - Atherosclerotic heart disease of [place] coronary artery without angina pectoris (2) Aortic stenosis: Code(s): I35.0 - Nonrheumatic aortic (valve) stenosis Qualifiers: Cardiac valve disease etiology: nonrheumatic Qualified Code(s): I35.0 - Nonrheumatic aortic (valve) stenosis (3) Essential hypertension: Code(s): I10 - Essential (primary) hypertension Plan Cardiac catheterization 2021- moderate disease in the LAD and RCA. Non dominant RCA. No interventions. In the recent echocardiogram, preserved LVEF at 65-70%. Moderate aortic valve calcification with moderate stenosis. Mean gradient is 28 mm Hg with a valve area of 1.3 cm2. From a vascular standpoint, she has a history of abdominal aortic aneurysm, carotid stenosis, strokes. Overall, she may continue treatment for stable vascular disease. There is no cardiac reason to take Eliquis. She does not have atrial fibrillation. In the past, reason documented was occlusion of aortic endograft. If no clear vascular reason either, can stop it completely and just use aspirin. Further recommendations per vascular surgery. Blood pressure stable on the current regimen. Otherwise, continue statins. Aortic stenosis can be followed with another echocardiogram in 1 year. Medications: Discontinued apixaban (Eliquis) Discontinued Reason: Doctor's Order 5 mg PO BID 60 tabs 3RF I82.409 - Acute embolism and thrombosis of unspecified deep veins of unspecified lower extremity Coding Level of Care Code Est Pt Level 4 (69283) Diagnoses Atherosclerotic cardiovascular disease I25.10 Nonrheumatic aortic valve stenosis I35.0 Cardiac valve disease etiology: nonrheumatic Essential hypertension I10 CPT Codes EKG - CPT: 78914-[id number], Complete ([id number])
== END 2023-10-27 12:56 | disposition home or self-care (01) ==
PROVIDERS: PCP Physician Assistant; Visit Provider Internal Medicine
DX: I25.10 Atherosclerotic heart disease of native coronary artery without angina pectoris (principal); I35.0 Nonrheumatic aortic (valve) stenosis; I10 Essential (primary) hypertension
CPT/HCPCS: 93010; 99214

== ENCOUNTER → 2023-10-27 12:29 | Outpatient (BNVA) | payer OTHER, MEDICAID, SELFPAY | PROVIDERS: PCP Physician Assistant; Visit Provider Internal Medicine | DX: I25.10 Atherosclerotic heart disease of native coronary artery without angina pectoris (principal); I10 Essential (primary) hypertension; I35.0 Nonrheumatic aortic (valve) stenosis; Z98.890 Other specified postprocedural states | CPT/HCPCS: 93005; 99212 ==

== ENCOUNTER 2023-12-22 08:26 | Outpatient (AMB) | payer OTHER, SELFPAY ==
--- NOTE | 2023-12-22 08:31 | A.OFFVIS_ITS ---
Vital Signs 12/22/23 08:32 Height 5 ft 4 in Weight 128 lb 15.527 oz BMI 22.1 Pulse 90 Pulse Source Pulse Oximeter Pulse Oximetry (%) 90 L Oxygen Delivery Method Room Air Intake Visit Reasons: copd Fur Weigher Required: No Allergies No Known Allergies Allergy (Verified 12/22/23 08:34) HPI Comments Details: The patient is a 78 year-old woman with a history of lifelong smoking, COPD was been developing worsening shortness of breath progressive in nature. Right now she becomes very short of breath even with minimal activity moderate to severe. When she cannot breathe she feels very breathless and his and she is starts panting. Initially had been when she was in the room. In the office we did have her go for 6 minutes walk test patient maintain a pulse ox will above 95% throughout the ambulation. However, his noted that she became very short of breath with a Bandar score of 8/10 when heart rate increased to about 101,520. Therefore we had done an EKG demonstrating sinus that with activity. Patient did have poor R-wave progression in some T-wave abnormalities. At this point the patient does not have any chest pain and no resting her shortness of breath have subsided. Therefore, I will have undergo blood work and also referred to Cardiology. In the meantime will optimize her respiratory therapy by starting Trelegy inhaler should be a good inhaler for her for adherence and also for maximum respiratory capacity. 11/22/2020 The patient is here for a sick visit. She started developing worsening dyspnea even at rest. The patient has hard time with any activity due to significant panting shortness of breath. She also has been complaining of chest pressure. She did call the office yesterday and we advised her to go to the ER because of the chest discomfort. However, she did go but was too crowded and she left. Therefore she was seen today in the office. She has been using the Trelegy inhaler. Only partially helpful. Denies any fevers or chills. Denies any contact with anybody with COVID-19. Denies any productive cough or coughing general. The patient did have an EKG done in the office demonstrating some minimal ectopy otherwise no abnormalities. Therefore, she was given 2 treatments with DuoNeb and her symptoms improved dramatically. Her chest pressure subsided. The patient afterwards was ambulated had a 6 minutes walk test which she desaturated down to 88% with activity. Therefore supplemental oxygen with activity will be helpful as well. The patient does need a nebulizer. We did provide her with a nebulizer in the office and she was educated on how to use it. The patient be treated for COPD exacerbation. If however condition worsens or her symptoms worsen over the weekend that she needs to seek medical advice in the ER. 06/12/2022 the patient is here for a pulmonary follow-up visit. Overall the patient has been doing a little better. She is responding well to the oxygen. She does use with activity and sleep. She has been using her rescue inhaler. Her maintenance inhaler now is not being covered. She has been having to use her rescue inhaler more often. She does not tolerate the powdered inhalers. Th erefore I will send her the Advair HFA with hopes that she can start using her maintenance therapy and improve her overall respiratory capacity. We did review her imaging. She did have a CT scan of the chest last year demonstrating hiatal hernia in addition to emphysema. Patient also had some atelectasis. Will go ahead and repeat her chest x-ray at this time. 12/18/2022 the patient is here for a pulmonary follow-up visit. Overall she is feeling better. She does use the oxygen with activity with good effect. Also use it with sleep. She has some discrepancies with her inhalers. I did advise her to use the Advair as prescribed and her rescue inhaler. She had a chest x- ray back in September 2022 personally by me demonstrating no acute disease. Clinically the patient is doing well right now. 06/18/2023 the patient is here for a pulmonary follow-up visit. The patient overall has been doing well. She denies any new complaints. She does have some dyspnea on exertion [id number] severity. She does use the oxygen with good effect. She has also been using the Advair inhaler. She still has some chest tightness and wheezing at times. The patient does have and prescription for Trelegy but she does know if . And the daughter is also wondering if for once a day medication be effective for her. We did talk about potentially optimizing her respiratory therapy by adding a long-acting muscarinic antagonist along with the Advair. If she finds that effective we can always switch her in the future to something like Trelegy. 12/22/2023 the patient is here for pulmonary follow-up visit. She is winded and tired. She does not have her oxygen with her because it is too heavy. Her oxygen did decrease significantly when she came in. When she sat down she was saturating 88% on room air. Will place her on a conserving device 2 L pulse Incruse able to maintain 90%. Then we ambulated her briefly and she was able to sustain a pulse ox of 90% on 4 L pulse. Therefore will request a conserving device for her in order for her to have better portability outside of her home. Also will request a portable oxygen concentrator since she has difficulties handling the oxygen tanks. We did teach her how to use it but she tends to forget. I do believe a portable oxygen concentrator be easier for her to use with ease. The patient has been using the Advair with good effect. She also needs albuterol medication which was sent to the pharmacy. Will have her get a chest x-ray. The patient does have a history of glaucoma now so will take her off all anticholinergics. [facility] Medical History (Updated 12/22/23 @ 08:45 by Maico Perez MD) COPD (chronic obstructive pulmonary disease) Left ulnar fracture COPD (chronic obstructive pulmonary disease) COVID-19 Early satiety Abdominal bloating COPD exacerbation Essential hypertension Precordial chest pain Tachycardia Dyspnea CVA (cerebral vascular accident) Atherosclerotic cardiovascular disease Psoriasis Hydroureter, right Pernicious anemia Raynauds disease Hernia Emphysema lung Emphysema of lung Asthma History of pyloric channel ulcer Glaucoma Mild acid reflux Surgical History S/P cardiac catheterization H/O carotid endarterectomy (04/01/20) History of AAA (abdominal aortic aneurysm) repair Hx of shoulder surgery Hx of varicose vein stripping Family History Father No problems noted. Mother No problems noted. Sister No problems noted. Sister No problems noted. Sister No problems noted. Sister No problems noted. Sister Cancer Son No problems noted. Social History Housing: House Alcohol intake: never Patient Tobacco Use Status: Former Tobacco user Tobacco use type: Cigarette Years Smoked: 65 e-Cigarette/Vaping Use: Never Used Second Hand Smoke Exposure: No Advance Directives Date on File: 06/11/21 service: No Current occupational status: retired Cognitive needs: Yes Hearing needs: No Vision needs: Yes Review of Systems Const Denies night sweats ENT Denies change in voice, Reports dizziness, Denies lip swelling, Denies mouth pain, Reports nasal congestion, Reports nasal discharge and Denies tongue swelling Card Denies chest pain, Denies dyspnea and Reports dyspnea on exertion Resp Reports cough, Denies dyspnea, Reports dyspnea on exertion and Denies stridor GI Denies abdominal pain Musc Denies no additional complaints Neuro Denies Neuro-related abnormal movements and Reports dizziness Psych Denies no additional complaints Edwardo/Lymph Denies easy bleeding and Denies lymphadenopathy Aller/Immun Denies lip swelling and Denies tongue swelling Physical Exam Vital Signs: Last Vital Signs Pulse 90 12/22/23 08:32 Pulse Ox 90 L 12/22/23 08:32 Oxygen Delivery Method Room Air 12/22/23 08:32 BMI result Body Mass Index 22.1 Const General: alert Neck Neck: Yes normal visual inspection, Yes full ROM and Yes no lymphadenopathy Chest Chest palpation & inspection: normal inspection of the chest Resp Auscultation: no wheezes and diminished lung sounds Cardio Rate: regular rate Rhythm: regular rhythm Heart sounds: S1 normal heart sound present and S2 normal heart sound present GI Palpation (GI): Soft to palpation and nontender Auscultation: normal bowel sounds Skin General skin exam: rashes and/or lesions noted Office Procedures 6 Minute Walk Time:: 11:03 SPO2 % at rest: 88 Pulse at rest: 89 Distance in yards walked: 30 Bandar Score: 5 Supplemental Oxygen: The patient desaturated to 88% on room air. She was placed on 2 L pulse maintaining a pulse ox of 90%. She was not ambulated briefly on 4 L pulse and maintain a pulse ox of 91%. Will request a conserving device for the patient at this time. [id number] - 6 Minute Walk Assessment & Plan Assessment & Plan (1) COPD (chronic obstructive pulmonary disease): Code(s): J44.9 - Chronic obstructive pulmonary disease, unspecified Category: Medical Qualifiers: COPD type: emphysema Emphysema type: centrilobular Qualified Code(s): J43.2 - Centrilobular emphysema (2) Dyspnea: Code(s): R06.00 - Dyspnea, unspecified Category: Medical Qualifiers: Dyspnea type: dyspnea on exertion Qualified Code(s): R06.00 - Dyspnea, unspecified (3) Emphysema of lung: Code(s): J43.9 - Emphysema, unspecified Category: Medical Qualifiers: Emphysema type: centrilobular Qualified Code(s): J43.2 - Centrilobular emphysema Plan continue Advair HFA stopped Incruse due to glaucoma ? KAYY as needed CXR oxygen supplementation revision: 2 L/pulse via nasal cannula at rest, 4L/pulse with activity. Requesting conserving device and a POC for better portability o utside of the home Follow-up in 4 months Orders: Orders XR chest 2V Today J43.2 - Centrilobular emphysema Medications: New albuterol sulfate 2.5 mg (3 mL) inhalation Q6H 180 mL 11RF 30 days J43.2 - Centrilobular emphysema Changed From albuterol sulfate 90 mcg/actuation 1 inh inhalation QID PRN 1 ea 11RF shortness of breath or wheezing To albuterol sulfate 90 mcg/actuation 2 inhalations inhalation QID PRN 1 ea 11RF shortness of breath or wheezing 30 days Refilled fluticasone propion-salmeterol 115-21 mcg/actuation (Advair HFA) 2 puffs inhalation Q12H 12 grams 11RF 30 days Coding Level of Care Code Est Pt Level 4 (37479) Diagnoses Centrilobular emphysema J43.2 COPD type: emphysema Emphysema type: centrilobular Dyspnea on exertion R06.00 Dyspnea type: dyspnea on exertion Centrilobular emphysema J43.2 Emphysema type: centrilobular CPT Codes Coding ([id number]) Time Spent (min) 18
[2023-12-22 08:32] VITALS: PULSE 90; O2SAT 90; BMI 22.1
[2023-12-22 11:04] VITALS: PULSE 89; O2SAT 88
== END 2023-12-22 08:54 | disposition home or self-care (01) ==
PROVIDERS: PCP Physician Assistant; Visit Provider Hospitalist
DX: J43.2 Centrilobular emphysema (principal); R06.00 Dyspnea, unspecified
CPT/HCPCS: 94618; 99214

== ENCOUNTER → 2023-12-22 08:26 | Outpatient (BNVA) | payer OTHER, SELFPAY | PROVIDERS: PCP Internal Medicine Medical Oncology; Visit Provider Hospitalist | DX: J43.2 Centrilobular emphysema (principal); R06.00 Dyspnea, unspecified | CPT/HCPCS: 94618; 99212 ==

== ENCOUNTER 2024-01-03 08:35 | Outpatient (REF) | payer OTHER, SELFPAY ==
--- NOTE | ~2024-01-03 | US_ITS ---
EXAMINATION: US EXTRACRANIAL CAROTID DUPLEX, BILATERAL CLINICAL INFORMATION: Cerebral infarction due to stenosis COMPARISON: Carotid duplex 12/14/2022 TECHNIQUE: Real-time ultrasound and Doppler techniques (integrating B-mode 2-D vascular images, Doppler spectral analysis and color-flow Doppler imaging) were utilized to interrogate the extracranial carotid arteries, the vertebral arteries and proximal subclavian arteries bilaterally. The degree of stenosis is determined by criteria similar to NASCET. FINDINGS: Right Side: 1. There is mild atherosclerotic plaque seen in the bifurcation/proximal ICA region. 2. The common carotid artery PSV proximally is 97.3 cm/s and distally 120 cm/s. 3. The proximal internal carotid artery velocities are 125 cm/s systolic and 29.9 cm/s diastolic. 4. The proximal external carotid artery PSV is 128 cm/s. 5. The vertebral artery shows antegrade flow. 6. The subclavian artery waveforms are abnormal with velocities over 200 cm/s, unchanged. Left Side: 1. There is mild atherosclerotic plaque seen in the bifurcation/proximal ICA region. 2. The common carotid artery PSV proximally is 103 cm/s and distally 118 cm/s. 3. The proximal internal carotid artery velocities are 119 cm/s systolic and 37.7 cm/s diastolic. 4. The proximal external carotid artery PSV is 131 cm/s. 5. The vertebral artery shows antegrade flow. 6. The subclavian artery waveforms are normal. US/US carotid duplex BI IMPRESSION: 1. RIGHT: Minimal, non-hemodynamically significant stenosis of the proximal right internal carotid artery corresponding to a 0-49% stenosis by velocity criteria. 2. LEFT: Minimal, non-hemodynamically significant stenosis of the proximal left internal carotid artery corresponding to a 0-49% stenosis by velocity criteria. 3. There is no change in the category severity of disease when compared to the previous study dated 12/14/2022.
--- NOTE | ~2024-01-03 | XR_ITS ---
EXAMINATION: XR CHEST CLINICAL INFORMATION: Reason for Exam J43.2 - Centrilobular emphysema COMPARISON: Chest radiograph 09/11/2022 TECHNIQUE: 2 views of the chest FINDINGS: Kyphoplasty cement is noted in a mid thoracic vertebral body with focal kyphosis at this level. Abdominal aortic endovascular graft partially imaged. Similar background of emphysema and biapical pleural parenchymal scarring. No new superimposed focal consolidation. No pleural effusion. No pneumothorax. Unchanged cardiomediastinal silhouette. XR/XR chest 2V IMPRESSION: 1. Similar background of emphysema and biapical pleural parenchymal scarring. No new superimposed focal consolidation. 2. Kyphoplasty cement is noted in a mid thoracic vertebral body with focal kyphosis at this level.
--- NOTE | ~2024-01-03 | CT_ITS ---
EXAMINATION: CTA ABDOMEN AND PELVIS CLINICAL INFORMATION: Status post endograft placement with known left iliac occlusion. TECHNIQUE: Multiple axial images were obtained through the abdomen and pelvis before and after administration of 80 mL of Omnipaque 350 intravenously. Images were evaluated on independent dedicated 3-D workstation and 3-D images were reconstructed with concurrent radiologist supervision and subsequently interpreted. Specific vascular measurements are placed directly on the 3-D rendered images and are documented and stored in PACS. This CT examination was performed using dose optimization techniques as appropriate, variously including the following: *Automated exposure control. *Adjustment of mA and/or kV according to patient size (this includes techniques or standardized protocols for targeted exams where dose is matched to indication/reason for exam, i.e., extremities or head). *Use of iterative reconstruction technique. COMPARISON: CT abdomen and pelvis 01/15/2023 DLP: 172 mGy-cm. FINDINGS: VASCULAR: Abdominal aorta: Extensive calcific and fibrofatty plaque in the descending thoracic aorta and suprarenal abdominal aorta. Status post aortic endograft placement in the infrarenal abdominal aorta. The aneurysm sac measures 3.8 x 3.1 cm with no evidence of endoleak. Unchanged occlusion of the left iliac limb. The right iliac limb is patent. 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 Otherwise the left iliofemoral arteries are patent. The left iliofemoral system is patent, reconstituted after the occluded iliac limb. Mesenteric arteries: The celiac artery is patent. Mild stenosis at the origin of the SMA. Renal arteries: Patent bilateral renal arteries. NONVASCULAR: Lung Bases: The lungs are clear with no evidence of inflammation or nodules. Liver, Gallbladder, Biliary Tree: The liver is normal in size, shape, and attenuation. No focal hepatic lesion or biliary ductal dilatation is present. The gallbladder is unremarkable with no evidence of radiopaque gallstones, gallbladder wall thickening, or pericholecystic inflammatory changes. Pancreas: Unremarkable. Spleen: Unremarkable. Adrenal Glands: Unremarkable. Kidneys and Ureters: Right upper pole cortical scarring. No hydronephrosis. No nephrolithiasis. Bladder: Unremarkable. Gastrointestinal Tract: Severe colonic diverticulosis without evidence of diverticulitis. The large and small bowel are normal in caliber. Moderate hiatal hernia. Abdominal Wall: No hernia is demonstrated. Lymph Nodes: Normal. Pelvic Viscera: Unremarkable. Osseous Structures: Unremarkable. CT/CT angio abdomen pelvis IMPRESSION: 1. Status post infrarenal abdominal aortic endograft placement. No evidence of endoleak. 2. Unchanged occluded left iliac stent graft.
[2024-01-03 09:49] LABS: Blood Urea Nitrogen 16 mg/dL (9-16); Estimated Glomerular Filt Rate > 60
[2024-01-03] MEDS: iohexoL 350 MG/ML 75 ML INFUS..BTL 80 ML IV (10:41)
== END 2024-01-03 08:36 | disposition home or self-care (01) ==
LOC: HO.CT 08:35
PROVIDERS: PCP Physician Assistant; Visit Provider Surgery Vascular Surgery
DX: I71.40 Abdominal aortic aneurysm, without rupture, unspecified (principal); I63.231 Cerebral infarction due to unspecified occlusion or stenosis of right carotid arteries; J43.2 Centrilobular emphysema
CPT/HCPCS: 36415; 71046; 74174; 82565; 84520; 93880; Q9967

== ENCOUNTER 2024-01-11 10:16 | Outpatient (AMB) | payer OTHER, SELFPAY ==
[2024-01-11 10:17] VITALS: BP 122/70; PULSE 83; TEMP 36.8; O2SAT 84; BMI 22.0
--- NOTE | 2024-01-11 10:17 | MHC.OFFWIV ---
Intake Vital Signs 01/11/24 10:17 01/11/24 10:40 Height 5 ft 4 in Weight 128 lb BMI 22.0 BP 122/70 Blood Pressure Location Rt brachial Position Sitting Pulse 83 Pulse Source Pulse Oximeter Temp 98.3 F Temp Source Oral Pulse Oximetry (%) 84 L 90 L Oxygen Delivery Method Room Air Room Air Intake Visit Reasons: EP RT knee pain/swelling Intake Note: pt is here for right knee swelling Patient Tobacco Use Status: Former Tobacco user Allergies No Known Allergies Allergy (Verified 01/11/24 10:18) Do you need a note to return to daycare/school/sports/work: No HPI HPI Comments History of Present Illness Details Patient is a 78-year-old female with a past medical history of COPD on 2L NC at home (not wearing it now as she states she does not have portable oxygen but she said her PCP is working on getting it for her), multiple vascular issues and a DVT recently taken off Eliquis on 10/27/2023 by Cards. She is presenting with right knee pain and the inability to straighten her leg at the knee. She denies any trauma or falls. She states the pain started a week or 2 ago but it seems to be getting worse. She has not tried anything to make it better. [facility] Medical History (Updated 01/11/24 @ 11:15 by Luci Stephenson PA-C) COPD (chronic obstructive pulmonary disease) Left ulnar fracture COPD (chronic obstructive pulmonary disease) COVID-19 Early satiety Abdominal bloating COPD exacerbation Essential hypertension Precordial chest pain Tachycardia Dyspnea CVA (cerebral vascular accident) Atherosclerotic cardiovascular disease Psoriasis Hydroureter, right Pernicious anemia Raynauds disease Hernia Emphysema lung Emphysema of lung Asthma History of pyloric channel ulcer Glaucoma Mild acid reflux Surgical History S/P cardiac catheterization H/O carotid endarterectomy (04/01/20) History of AAA (abdominal aortic aneurysm) repair Hx of shoulder surgery Hx of varicose vein stripping Family History Father No problems noted. Mother No problems noted. Sister No problems noted. Sister No problems noted. Sister No problems noted. Sister No problems noted. Sister Cancer Son No problems noted. Social History Housing: House Alcohol intake: never Patient Tobacco Use Status: Former Tobacco user Tobacco use type: Cigarette Years Smoked: 65 e-Cigarette/Vaping Use: Never Used Second Hand Smoke Exposure: No Advance Directives Date on File: 06/11/21 service: No Current occupational status: retired Cognitive needs: Yes Hearing needs: No Vision needs: Yes Review of Systems Const All systems reviewed & are unremarkable except as noted in HPI and below Physical Exam Vital Signs: Last Vital Signs Temp 98.3 F 01/11/24 10:17 Pulse 83 01/11/24 10:17 BP 122/70 01/11/24 10:17 Pulse Ox 90 L 01/11/24 10:40 Oxygen Delivery Method Room Air 01/11/24 10:40 BMI result Body Mass Index 22.0 Const General: cooperative, healthy appearing, comfortable and no acute distress Orientation/consciousness: patient oriented x3 Limitations: no limitations HEENT Head: Yes normal to inspection Resp Effort & Inspection: normal respiratory effort and able to speak in complete sentences Neuro General: patient oriented x3 Extrem Right lower extremity: lower leg (variscosities ) Details: tenderness (+ Homans; medial joint line) and no edema; no abrasions, no lacerations, no ecchymosis and no unusual warmth Assessment & Plan Assessment & Plan (1) Schaefer cyst: Code(s): M71.20 - Synovial cyst of popliteal space [Schaefer], unspecified knee Qualifiers: Laterality: right Qualified Code(s): M71.21 - Synovial cyst of popliteal space [Schaefer], right knee Plan: Ordered DVT study to rule out DVT as patient has history and recently taken off Eliquis, foudn to have Schaefer's Cyst and chronic DVT. Recommended rest, compression, ibuprofen and follow up with PCP if no improvement. Applied MORRIS bandage to right knee. Plan see above Orders: Orders US venous duplex LE RT Today R22.41 - Localized swelling, mass and lump, right lower limb Coding Level of Care Code Est Pt Level 4 (53127) Diagnoses Synovial cyst of right popliteal space M71.21 Laterality: right
[2024-01-11 10:40] VITALS: O2SAT 90
== END 2024-01-11 12:13 | disposition home or self-care (01) ==
PROVIDERS: PCP Physician Assistant; Visit Provider Physician Assistant
DX: M71.21 Synovial cyst of popliteal space [Baker], right knee (principal)
CPT/HCPCS: 99214

== ENCOUNTER 2024-01-11 10:44 | Outpatient (REF) | payer OTHER, SELFPAY ==
--- NOTE | ~2024-01-11 | US_ITS ---
EXAMINATION: US VENOUS ULTRASOUND WITH DOPPLER LOWER EXTREMITY, RIGHT CLINICAL INFORMATION: Right lower extremity pain COMPARISON: CT angiogram abdomen pelvis 01/03/2024 TECHNIQUE: Ultrasound of the deep veins is performed from the hip to the calf with compression sonography and color and pulse Doppler assessment. Spectral analysis with color-flow imaging is performed. FINDINGS: There is nonocclusive thrombus present in the right profunda femoris vein measuring about 5 mm in thickness. This is echogenic with a chronic appearance. In retrospect on the 01/15/2023 CT abdomen pelvis, some possible thrombus can be seen in this region. The deep venous system otherwise appears unremarkable with normal venous compression and respiratory variation and augmented flow. The visualized common femoral vein, superficial femoral vein, popliteal vein, and the trifurcation region shows no evidence of deep venous thrombosis. There is a Schaefer's cyst in the popliteal fossa medially measuring 4.0 x 1.7 x 3.3 cm. US/US venous duplex LE RT IMPRESSION: 1. 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 2. Schaefer's cyst.
== END 2024-01-11 10:45 | disposition home or self-care (01) ==
LOC: HO.HMGCX 10:44
PROVIDERS: PCP Physician Assistant; Visit Provider Physician Assistant
DX: R22.41 Localized swelling, mass and lump, right lower limb (principal); M79.604 Pain in right leg
CPT/HCPCS: 93971

== ENCOUNTER 2024-01-25 09:24 | Outpatient (REF) | payer OTHER, SELFPAY ==
--- NOTE | ~2024-01-25 | MM_ITS ---
EXAMINATION: MM SCREENING DIGITAL BREAST TOMOSYNTHESIS, BILATERAL CLINICAL INFORMATION: Screening. Asymptomatic. COMPARISON: Mammography: This study is compared with prior exams dating back to 2021. TECHNIQUE: Digital breast tomosynthesis is performed in both the craniocaudal and mediolateral oblique views along with computer-aided detection (CAD). Synthesized 2D images are generated from the tomosynthesis. FINDINGS: There are scattered areas of fibroglandular density (ACR BI-RADS breast composition Category b). There are no significant masses, abnormal calcifications, or other abnormalities. There is a coarsely calcified, subcentimeter, oval, benign mass in the upper outer quadrant of the left breast. This represents a benign, involuting fibroadenoma. MM/MM tomosynthesis screening BI IMPRESSION: No mammographic evidence of malignancy. ASSESSMENT: BI-RADS BI-RADS 2 - Benign Findings RECOMMENDATION: Routine annual mammography screening. 1 year F/U This examination should not preclude the clinical evaluation of a suspicious palpable abnormality. This patient's information was entered into a reminder system with a target due date for their next mammogram.
== END 2024-01-25 09:25 | disposition home or self-care (01) ==
LOC: HO.MAMMO 09:24
PROVIDERS: PCP Physician Assistant; Visit Provider Physician Assistant
DX: I71.40 Abdominal aortic aneurysm, without rupture, unspecified (principal); Z12.31 Encounter for screening mammogram for malignant neoplasm of breast; Z86.73 Personal history of transient ischemic attack (TIA), and cerebral infarction without residual deficits
CPT/HCPCS: 77063; 77067; 99212

== ENCOUNTER → 2024-01-25 09:30 | Outpatient (BNV) | payer OTHER, SELFPAY | PROVIDERS: PCP Physician Assistant; Visit Provider Radiology Diagnostic Radiology | DX: Z12.31 Encounter for screening mammogram for malignant neoplasm of breast (principal) | CPT/HCPCS: 77063; 77067 ==

== ENCOUNTER 2024-01-25 10:08 | Outpatient (AMB) | payer OTHER, SELFPAY ==
--- NOTE | 2024-01-25 10:13 | MHC.OFFVIS ---
Vital Signs 01/25/24 10:15 Height 5 ft 4 in Weight 128 lb BMI 22.0 Intake Visit Reasons: 1y follow up s/p carotid US/CTA Abd/pelvis 01/02/ Intake Note: 1 yr follow up s/p carotid US 01/03/24 (Hx of Right CEA) & CTA Adb/pelvis 01/03/24 (for Left iliac occlusion). Pt states no complaints except a bakers cyst on the right LE Accompanied by: CIVIL SERVICE WORKER/neice Allergies No Known Allergies Allergy (Verified 01/25/24 10:20) HPI HPI 1y follow up s/p carotid US/CTA Abd/pelvis 01/02/: Details: Very pleasant 78-year-old female presents for routine follow-up regarding carotid disease and aortic aneurysm. She underwent right carotid endarterectomy nearly 4 years ago and endovascular repair of her aorta nearly 6 years ago. From a vascular perspective she has no issues. She now is O2 dependent and is not as ambulatory. She reports that she has persistent lower extremity pain and has had many years of epidural injections. At the current time she has forgotten that. She now presents to us for routine follow-up. [facility] Medical History COPD (chronic obstructive pulmonary disease) Left ulnar fracture COPD (chronic obstructive pulmonary disease) COVID-19 Early satiety Abdominal bloating COPD exacerbation Essential hypertension Precordial chest pain Tachycardia Dyspnea CVA (cerebral vascular accident) Atherosclerotic cardiovascular disease Psoriasis Hydroureter, right Pernicious anemia Raynauds disease Hernia Emphysema lung Emphysema of lung Asthma History of pyloric channel ulcer Glaucoma Mild acid reflux Surgical History S/P cardiac catheterization H/O carotid endarterectomy (04/01/20) History of AAA (abdominal aortic aneurysm) repair Hx of shoulder surgery Hx of varicose vein stripping Family History Father No problems noted. Mother No problems noted. Sister No problems noted. Sister No problems noted. Sister No problems noted. Sister No problems noted. Sister Cancer Son No problems noted. Social History Housing: House Alcohol intake: never Patient Tobacco Use Status: Former Tobacco user Tobacco use type: Cigarette Years Smoked: 65 e-Cigarette/Vaping Use: Never Used Second Hand Smoke Exposure: No Advance Directives Date on File: 06/11/21 service: No Current occupational status: retired Cognitive needs: Yes Hearing needs: No Vision needs: Yes Review of Systems Const All systems reviewed & are unremarkable except as noted in HPI and below Reports no additional complaints ENT Reports Normal hearing present Card Denies chest pain, Denies chest pain at rest, Denies chest pain with activity and Denies pedal edema Resp Denies cough GI Denies abdominal pain Musc Denies abnormal gait, Denies muscle cramps and Denies radiating pain into limb Skin/Breast Denies skin ulcer and Denies wounds Neuro Reports Normal hearing present and Denies abnormal gait Psych Reports no additional complaints Physical Exam Vital Signs: BMI result Body Mass Index 22.0 Const General: cooperative, healthy appearing and comfortable Orientation/consciousness: oriented to person, oriented to place and oriented to time HEENT Head: Yes normal to inspection Neck Neck: Yes normal visual inspection Carotids: no bruits Chest Chest palpation & inspection: normal inspection of the chest Resp Effort & Inspection: normal respiratory effort and able to speak in complete sentences Auscultation: clear to auscultation bilaterally, no crackles, no rales, no rhonchi and no wheezes Cardio Rate: regular rate Rhythm: regular rhythm Heart sounds: S1 normal heart sound present and S2 normal heart sound present Bruits: no carotid bruits Peripheral pulses: Peripheral pulses 2+ throughout GI Inspection: Yes normal to inspection Skin Wounds: no wounds Hair: normal Neuro General: oriented to person, oriented to place and oriented to time Cranial nerves: Yes CN's II-XII intact bilaterally and Yes Normal hearing present Cognition (Neuro): normal cognition Motor exam (neuro): 5/5 motor strength present throughout Extrem Other: venous exam: No significant superficial varicosities or spider telangiectasias, minimal edema General: No clubbing, No cyanosis and No edema Psych Appearance: grossly normal Mental Status: mental status grossly normal Speech and movement: Normal speech and movement present Results Reviewed Results Reviewed: Carotid testing dated 01/03/2024 demonstrates bilateral 0-49% stenosis. CT angiogram dated 01/03/2024 demonstrates aneurysm sac 3.8 x 3.1 with no evidence of endoleak. Known left iliac occlusion. Assessment & Plan Assessment & Plan (1) Abdominal aortic aneurysm (AAA): Comment: 12/20/2017 - endovascular aortic aneurysm repair Code(s): I71.4 - Abdominal aortic aneurysm, without rupture Category: Medical Qualifiers: Presence of rupture: without rupture Qualified Code(s): I71.4 - Abdominal aortic aneurysm, without rupture Plan: In short patient has stable aortic angiogram. We have discussed the pathophysiology of aortic aneurysms and the risk of ruptures. We have discussed rupture risk based on size. In addition we have discussed conservative measures and risk factor modification for prevention of increase in size of the aneurysm. the patient is scheduled for surveillance follow-up in approximately one year with CT. Thank you for allowing us to participate in the care of this patient (2) Stroke due to stenosis of right carotid artery: Comment: March 2020 - right carotid endarterectomy Code(s): I63.231 - Cerebral infarction due to unspecified occlusion or stenosis of right carotid arteries Category: Medical Plan: In short patient has asymptomatic carotid disease. We have reviewed signs and symptoms of a stroke. We also discussed risk factor modification inclusive a healthy diet low in cholesterol. The patient will follow up with us with surveillance ultrasound of the carotids one year. Should there be any changes or signs or symptoms of a stroke we will be happy to see them back sooner. Thank you for allowing us to participate in this patient's care. If there are any questions or concerns please do not hesitate to contact us. Orders: Orders CT angio abdomen pelvis 1 Year I71.4 - Abdominal aortic aneurysm, without rupture US carotid duplex BI 1 Year I63.231 - Cerebral infarction due to unspecified occlusion or stenosis of right carotid arteries Blood Urea Nitrogen 1 Year I71.4 - Abdominal aortic aneurysm, without rupture Creatinine 1 Year I71.4 - Abdominal aortic aneurysm, without rupture Coding Level of Care Code Est Pt Level 4 (90527) Diagnoses Abdominal aortic aneurysm (AAA) without rupture I71.4 Presence of rupture: without rupture Stroke due to stenosis of right carotid artery I63.231
[2024-01-25 10:15] VITALS: BMI 22.0
== END 2024-01-25 10:54 | disposition home or self-care (01) ==
PROVIDERS: PCP Internal Medicine Medical Oncology; Visit Provider Surgery Vascular Surgery
DX: I71.40 Abdominal aortic aneurysm, without rupture, unspecified (principal); I63.231 Cerebral infarction due to unspecified occlusion or stenosis of right carotid arteries
CPT/HCPCS: 99214

== ENCOUNTER 2024-01-26 08:13 | Outpatient (AMB) | payer OTHER, SELFPAY ==
--- NOTE | 2024-01-26 08:26 | A.OFFPC_ITS ---
Vital Signs 01/26/24 08:28 Height 5 ft 4 in Weight 128 lb BMI 22.0 BP 122/80 Blood Pressure Location Lt brachial Position Sitting Pulse 56 Pulse Source Pulse Oximeter Pulse Oximetry (%) 90 L Oxygen Delivery Method Nasal Cannula Intake Visit Reasons: f/u HTN / HLD/ PAD Manager Integrity Required: No Accompanied by: niece Allergies No Known Allergies Allergy (Verified 01/26/24 08:35) Medication List - Last Reconciled 01/26/24 by Pipe Washburn PA-C albuterol sulfate 90 mcg/actuation 2 inhalations inhalation QID PRN 30 days albuterol sulfate 2.5 mg (3 mL) inhalation Q6H 30 days aspirin (Adult Aspirin Regimen) 81 mg PO DAILY atorvastatin 80 mg PO DAILY calcium carbonate 500 mg PO BID cholecalciferol (vitamin D3) 25 mcg PO DAILY cyanocobalamin (vitamin B-12) 1,000 mcg PO DAILY fluticasone propion-salmeterol 115-21 mcg/actuation (Advair HFA) 2 puffs inhalation Q12H 30 days latanoprost 0.005% 1 drp ophthalmic (eye) BEDTIME [id number] 24,000-76,000 -120,000 unit (Creon) 1 cap PO TID lisinopril 10 mg PO DAILY nebulizers As directed nitroglycerin 0.4 mg sublingual Q5M PRN omeprazole 20 mg PO BID ondansetron 4 mg PO Q8H PRN sennosides (Senokot Extra Strength) 17.2 mg PO BID PRN umeclidinium 62.5 mcg/actuation (Incruse Ellipta) 1 inh inhalation DAILY 30 days vitamin B complex (B Complex-Vitamin B12 tablet) 1 tab PO DAILY Tobacco use date assessed: 10/21/23 Fall risk assessment: 1 Fall in past year Last assessed Fall Risk: 01/26/24 Dental Screening Dental Screen Date: 10/21/23 HPI f/u HTN / HLD/ PAD HPI Details Patient is a 78-year-old female here today for follow-up visit. Patient has multiple medical problems including osteoporosis, lumbar spondylosis and stenosis, COPD, history of DVT on Eliquis, peripheral arterial disease, carotid stenosis , abdominal aortic aneurysm, hypertension, hyperlipidemia. .. .. COPD: Patient followed by pulmonology here in [place], was a former smoker (4 packs a day) Continues on maintenance inhalers with decent affect. She is now O2 dependent via nasal cannula -2 liters/minute. Does seem to desat during physical activity. .. DVT : Continues on Eliquis. No overt signs of bleeding mention. Also followed by vascular surgeon for her carotid stenosis and a abdominal aortic aneurysm, undergoing surveillance imaging. Has had multiple vascular surgeries including abdominal aortic aneurysm repair and carotid endarterectomy. .. Hypertension: Blood pressure today in office acceptable, she does report at times having chest discomforts to which she uses nitro which helps relieve her pain. She will discuss this with her electronic musical instrument repairer as she may be showing signs of coronary artery stenosis. .. Hyperlipidemia: Patient continues on high-dose statin therapy. Most recent lipid panel showing excellent control over total cholesterol and LDL. Goal LDL to remain below 100, optimally below 70. Laboratory Tests 05/13/23 06/29/23 01/03/24 12:21 08:28 08:53 RBC 4.63 Hgb 12.2 Creatinine 0.88 0.86 Alkaline Phosphata se 136 H 132 H LDL Cholesterol, C alc 73 25-OH Vitamin D To maria elena 13.7 L PFSH Medical History COPD (chronic obstructive pulmonary disease) Left ulnar fracture COPD (chronic obstructive pulmonary disease) COVID-19 Early satiety Abdominal bloating COPD exacerbation Essential hypertension Precordial chest pain Tachycardia Dyspnea CVA (cerebral vascular accident) Atherosclerotic cardiovascular disease Psoriasis Hydroureter, right Pernicious anemia Raynauds disease Hernia Emphysema lung Emphysema of lung Asthma History of pyloric channel ulcer Glaucoma Mild acid reflux Surgical History S/P cardiac catheterization H/O carotid endarterectomy (04/01/20) History of AAA (abdominal aortic aneurysm) repair Hx of shoulder surgery Hx of varicose vein stripping Family History Father No problems noted. Mother No problems noted. Sister No problems noted. Sister No problems noted. Sister No problems noted. Sister No problems noted. Sister Cancer Son No problems noted. Social History Housing: House Alcohol intake: never Patient Tobacco Use Status: Former Tobacco user Tobacco use type: Cigarette Years Smoked: 65 e-Cigarette/Vaping Use: Never Used Second Hand Smoke Exposure: No Advance Directives Date on File: 06/11/21 service: No Current occupational status: retired Cognitive needs: Yes Hearing needs: No Vision needs: Yes Questionnaire Thrive Questionnaire Date Thrive assessed: 10/21/23 CHARLES-7 AMB Questionnaire CHARLES-7 Date CHARLES - 7 assessed: 10/21/23 Source: Developed by Drs. Wallace Nathan, Maddi Steven, Codey Miller and colleagues, with an educational zachary from [employer]. Review of Systems Const Denies headache(s) Eyes Denies loss of vision ENT Denies vertigo, Denies dizziness, Denies headache(s) and Denies sore throat Card Denies chest pain, Denies leg edema and Denies lightheadedness Resp Denies cough, Denies hemoptysis and Denies wheezing GI Denies abdominal pain, Denies melena, Denies constipation, Denies diarrhea and Denies vomiting Denies urinary frequency, Denies dysuria and Denies urinary urgency Musc Denies arthralgias, Denies joint swelling, Denies numbness and Denies tingling Neuro Denies Abnormal speech present, Denies behavioral changes, Denies vertigo, Denies dizziness, Denies headache(s), Denies loss of vision, Denies memory loss, Denies numbness and Denies tingling Psych Denies anxiety, Denies behavioral changes, Denies depression, Denies memory loss and Denies panic attacks Edwardo/Lymph Denies easy bleeding and Denies easy bruising Aller/Immun Denies wheezing Physical exam (Primary Care) Vital Signs: Last Vital Signs Pulse 56 01/26/24 08:28 BP 122/80 01/26/24 08:28 Pulse Ox 90 L 01/26/24 08:28 Oxygen Delivery Method Nasal Cannula 01/26/24 08:28 BMI result Body Mass Index 22.0 Tobacco/Smoking Status: Tobacco use Status Tobacco use date assessed 10/21/23 01/26/24 08:33 Patient Tobacco Use Status Former Tobacco user 01/26/24 08:33 Tobacco use type Cigarette 01/26/24 08:33 e-Cigarette/Vaping Use Never Used 01/26/24 08:33 Thrive Assessment: Date of Thrive Assessment Date Thrive assessed 10/21/23 01/26/24 08:33 Const General: healthy appearing, no acute distress, alert and awake Nutritional Appearance: well nourished Orientation/consciousness: oriented to person, oriented to place and oriented to time HENMT Ears: TM's normal bilaterally General nose exam: Normal nasal mucous membranes and turbinates present Eyes Conjunctivae: conjunctivae normal Sclerae: sclerae normal Pupils: Equal, round and reactive pupils present Neck Neck: Yes no lymphadenopathy and Yes no JVD Thyroid: Thyroid normal Carotids: no bruits Resp Effort & Inspection: normal respiratory effort and not tachypneic Auscultation: no crackles, no rales, no rhonchi and no wheezes Cardio Rate: regular rate Rhythm: regular rhythm Heart sounds: no murmurs and normal S1 and S2 GI Palpation (GI): Soft to palpation, nontender, no hepatomegaly and no splenomegaly Auscultation: normal bowel sounds Skin General skin exam: no rashes or lesions noted and dry skin Neuro General: oriented to person, oriented to place and oriented to time Cranial nerves: Yes Equal, round and reactive pupils present Speech: No Abnormal speech present Gait exam (Neuro): Normal gait present Motor exam (neuro): no tremor noted Extrem Right upper extremity: full ROM Left upper extremity: full ROM Right lower extremity: full ROM; no edema Left lower extremity: full ROM; no edema Psych Mental Status: mental status grossly normal Speech and movement: Normal speech and movement present Affect: normal affect Attitude: cooperative Thought process: Normal thought process present Assessment and Plan Assessment & Plan (1) Hypertension: Code(s): I10 - Essential (primary) hypertension Qualifiers: Hypertension type: primary hypertension Qualified Code(s): I10 - Essential (primary) hypertension Plan: Patient's blood pressure acceptable today in office. Will continue her current dose of antihypertensive medication with goal blood pressure to be below 140/90 (2) 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 Continues on blood pressure control, high potency statin and anticoagulation. (3) DVT (deep venous thrombosis): Code(s): I82.409 - Acute embolism and thrombosis of unspecified deep veins of unspecified lower extremity Qualifiers: DVT location: lower extremity Affected thrombotic vein of extremity: popliteal Chronicity: chronic Laterality: right Qualified Code(s): I82.531 - Chronic embolism and thrombosis of right popliteal vein Plan: Patient continues on Eliquis without any overt signs of bleeding. Recent ultrasound of lower extremity without any acute DVTs. Continues to follow a vascular surgeon here in [place]. (4) Hyperlipidemia: Code(s): E78.5 - Hyperlipidemia, unspecified Qualifiers: Hyperlipidemia type: mixed hyperlipidemia Qualified Code(s): E78.2 - Mixed hyperlipidemia Plan: Patient continues on high potency statin. Goal LDL is to be optimally below 70 due to her multiple comorbidities and history of stroke. (5) Emphysema of lung: Code(s): J43.9 - Emphysema, unspecified Qualifiers: Emphysema type: centrilobular Qualified Code(s): J43.2 - Centrilobular emphysema Plan: Patient continues to follow pulmonology. Now dependent on O2 (2 liters/minute). SpO2 sats ranging in the high 80s- low 90s. Continues on maintenance inhalers with decent affect on reducing or shortness a breath and cough. She is a former smoker of 4 packs per day. (6) Multi-vessel coronary artery stenosis: Code(s): I25.10 - Atherosclerotic heart disease of [place] coronary artery without angina pectoris Plan: Patient does report having to use more nitro as of late due to chest discomforts. She will discuss this with her electronic musical instrument repairer. Did have a cardiac catheterization in 2021 showing multilevel vessel stenosis. 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
[2024-01-26 08:28] VITALS: BP 122/80; PULSE 56; O2SAT 90; BMI 22.0
== END 2024-01-26 08:49 | disposition home or self-care (01) ==
PROVIDERS: PCP Physician Assistant; Visit Provider Physician Assistant
DX: I10 Essential (primary) hypertension (principal); I63.231 Cerebral infarction due to unspecified occlusion or stenosis of right carotid arteries; I82.531 Chronic embolism and thrombosis of right popliteal vein; E78.2 Mixed hyperlipidemia; J43.2 Centrilobular emphysema; I25.10 Atherosclerotic heart disease of native coronary artery without angina pectoris
CPT/HCPCS: 99214

== ENCOUNTER 2024-02-08 09:07 | Outpatient (AMB) | payer OTHER, MEDICAID, SELFPAY ==
--- NOTE | 2024-02-08 09:10 | MHC.OFFVIS ---
Vital Signs 02/08/24 09:13 Height 5 ft 4 in Weight 126 lb 1.671 oz BMI 21.6 BP 130/59 L Blood Pressure Location Rt brachial Position Sitting Pulse 113 H Pulse Source Pulse Oximeter Pulse Oximetry (%) 74 L Oxygen Delivery Method Nasal Cannula Intake Visit Reasons: 6 mnth folllow up Intake Note: Bridget returns to in office 6 months follow up visit of GERD. CC: Patient states that she fell at home 2 days ago at home and she is having left left pain. Patient denies having any GI symptoms or concerns today. Technology Manager Required: No Accompanied by: niece Allergies No Known Allergies Allergy (Verified 02/08/24 09:14) HPI HPI 6 mnth folllow up: Details: Assessment & Plan (1) GERD (gastroesophageal reflux disease): Code(s): K21.9 - Gastro-esophageal reflux disease without esophagitis (2) Chronic idiopathic constipation: Code(s): K59.04 - Chronic idiopathic constipation (3) Colonoscopy refused: Comment: pt consistently declines and also declines to do Cologuard Code(s): Z53.20 - Procedure and treatment not carried out because of patient's decision for unspecified reasons Plan She continues to do well. She continues on her2 tabs qsupper to promote better gastric motility and 1 qam and qnoon. She continues on creon for bloating and omeprazole. She has no new medical conditions to report and remains satisfied with her GI regimen. She is offered Cologuard is a screening since she continues to decline colonoscopy and we watch the video but she continues to declined this study as well. Return office visit in 6 months. Medications: New gvztbs-vzmhfixr-erxofcv 24,000-76,000 -120,000 unit (Creon) administer with meals and/or snacks 1 cap PO TID 90 caps 6RF Refilled sennosides (Senokot Extra Strength) 17.2 mg PO BID PRN 30 tabs 0RF constipation omeprazole 20 mg PO BID 180 caps 2RF K21.9 - Gastro-esophageal reflux disease without esophagitis TODAY'S VISIT She is here today with her aid who is supportive. She continues to do well on her Creon and omeprazole. However, her breathing continues to be poor and she is mostly panting and not getting the benefit of her oxygen via n/c. They tell me she fell and would not go to the ER r/t the last time we were there 13 hours. She has left hip and knee pain and some redness and swelling on the medial knee and patella. I order xrays. I will call if there are any severe abnomalites on the XR. ROV 1 years r/t pt preference. [facility] Medical History COPD (chronic obstructive pulmonary disease) Left ulnar fracture COPD (chronic obstructive pulmonary disease) COVID-19 Early satiety Abdominal bloating COPD exacerbation Essential hypertension Precordial chest pain Tachycardia Dyspnea CVA (cerebral vascular accident) Atherosclerotic cardiovascular disease Psoriasis Hydroureter, right Pernicious anemia Raynauds disease Hernia Emphysema lung Emphysema of lung Asthma History of pyloric channel ulcer Glaucoma Mild acid reflux Surgical History S/P cardiac catheterization H/O carotid endarterectomy (04/01/20) History of AAA (abdominal aortic aneurysm) repair Hx of shoulder surgery Hx of varicose vein stripping Family History Father No problems noted. Mother No problems noted. Sister No problems noted. Sister No problems noted. Sister No problems noted. Sister No problems noted. Sister Cancer Son No problems noted. Social History Housing: House Alcohol intake: never Patient Tobacco Use Status: Former Tobacco user Tobacco use type: Cigarette Years Smoked: 65 e-Cigarette/Vaping Use: Never Used Second Hand Smoke Exposure: No Advance Directives Date on File: 06/11/21 service: No Current occupational status: retired Cognitive needs: Yes Hearing needs: No Vision needs: Yes Review of Systems Const Denies fatigue, Denies fever(s), Denies night sweats, Denies poor appetite and Denies weight loss Eyes Details: glasses Reports requires corrective lenses ENT Reports Normal hearing present, Denies dental pain, Denies dysphagia, Denies hearing loss, Denies mouth pain, Denies odynophagia, Denies throat swelling, Denies tongue swelling and Reports other (Dentition adequate) Card Reports dyspnea on exertion Resp Reports cough and Reports dyspnea on exertion GI Details: Denies abdominal pain, Denies melena, Reports bloating, Denies hematochezia, Reports constipation, Denies GI cramping, Denies dysphagia, Denies excessive flatus, Denies early satiety, Reports heartburn, Reports diarrhea, Denies nausea, Denies odynophagia, Denies vomiting and Denies hematemesis Skin/Breast Denies pruritus, Denies lesions, Denies rash and Denies jaundice Neuro Reports Normal hearing present and Denies Abnormal speech present Psych Reports anxiety Endo Denies fatigue Aller/Immun Denies throat swelling and Denies tongue swelling Physical Exam Vital Signs: Last Vital Signs Pulse 113 H 02/08/24 09:13 BP 130/59 L 02/08/24 09:13 Pulse Ox 74 L 02/08/24 09:13 Oxygen Delivery Method Nasal Cannula 02/08/24 09:13 BMI result Body Mass Index 21.6 Const General: cooperative, no acute distress, well developed and well groomed Nutritional Appearance: average body habitus and well nourished Orientation/consciousness: oriented to person, oriented to place and oriented to time Limitations: No language barrier, ambulation with cane and other limitations (low oxygen, hip and knee pain) HEENT Head: Yes normocephalic and Yes atraumatic Eyes General: appearance normal, both eyes and all related structures Pupils: Equal, round and reactive pupils present Neck Neck: Yes normal visual inspection and Yes no lymphadenopathy Thyroid: Thyroid normal Resp Effort & Inspection: abnormal respiratory effort, not able to speak in complete sentences, Actively coughing, no grunting, not labored, no pursed lip breathing and prolonged expiratory phase Auscultation: diminished lung sounds Cardio Rate: regular rate Rhythm: regular rhythm Peripheral pulses: radial pulses present and posterior tibial pulses present GI Inspection: No distended and No Abdominal panniculus present Palpation (GI): Soft to palpation, nontender, no guarding, not rigid and No hepatosplenomegaly present Percussion: Yes normal to percussion Auscultation: normal bowel sounds Rectal Exam - Female: deferred Skin General skin exam: no rashes or lesions noted, turgor normal, skin not dry, no jaundice, No spider nevi and no striae Rashes: no rashes Nails: normal Neuro General: oriented to person, oriented to place and oriented to time Cranial nerves: Yes Equal, round and reactive pupils present and Yes Normal hearing present Speech: No Abnormal speech present Extrem General: No clubbing, No cyanosis and No edema Right lower extremity: hip/thigh Details: normal to inspection and tenderness Location: of the hip Location: posterolaterally Left lower extremity: edema (medical left knee popliteal area) and knee Details: tenderness Location: of the tibial tuberosity, of the popliteal fossa and of the medial joint line; not of the patella; no unusual warmth; abnormal to inspection (redness just below medial popliteal space) Psych Appearance: grossly normal and well kempt Mental Status: mental status grossly normal Speech and movement: Normal speech and movement present Affect: normal affect Attitude: cooperative Thought process: not confabulating and Impoverished thought process present Thought content: Normal thought content present Insight: Limited insight present (Psych) Judgement: Limited judgement present (Psych) Assessment & Plan Assessment & Plan (1) Chronic idiopathic constipation: Code(s): K59.04 - Chronic idiopathic constipation Category: Medical (2) GERD (gastroesophageal reflux disease): Code(s): K21.9 - Gastro-esophageal reflux disease without esophagitis Category: Medical (3) Left hip pain: Code(s): M25.552 - Pain in left hip Category: Medical (4) Left knee pain: Code(s): M25.562 - Pain in left knee Category: Medical Plan She is here today with her aid who is supportive. She continues to do well on her Creon and omeprazole. However, her breathing continues to be poor and she is mostly panting and not getting the benefit of her oxygen via n/c. They tell me she fell and would not go to the ER r/t the last time we were there 13 hours. She has left hip and knee pain and some redness and swelling on the medial knee and patella. I order xrays. I will call if there are any severe abnomalites on the XR. ROV 1 years r/t pt preference. Orders: Orders XR knee LT 2V Today M25.552 - Pain in left hip, M25.562 - Pain in left knee XR hip LT w PEL1V Today M25.552 - Pain in left hip, M25.562 - Pain in left knee Medications: Refilled omeprazole 20 mg PO BID 180 caps 2RF K21.9 - Gastro-esophageal reflux disease without esophagitis xznolm-nqctobim-kbiemzo 24,000-76,000 -120,000 unit (Creon) administer with meals and/or snacks 1 cap PO TID 270 caps 1RF sennosides (Senokot Extra Strength) 17.2 mg PO BID PRN 30 tabs 0RF constipation Coding Level of Care Code Est Pt Level 3 (51707) Diagnoses Chronic idiopathic constipation K59.04 GERD (gastroesophageal reflux disease) K21.9 Left hip pain M25.552 Left knee pain M25.562
[2024-02-08 09:13] VITALS: BP 130/59; PULSE 113; O2SAT 74; BMI 21.6
== END 2024-02-08 09:40 | disposition home or self-care (01) ==
PROVIDERS: PCP Physician Assistant; Visit Provider Nurse Practitioner
DX: K59.04 Chronic idiopathic constipation (principal); K21.9 Gastro-esophageal reflux disease without esophagitis; M25.552 Pain in left hip; M25.562 Pain in left knee
CPT/HCPCS: 99213

== ENCOUNTER 2024-02-08 09:07 | Outpatient (REF) | payer OTHER, MEDICAID, SELFPAY ==
--- NOTE | ~2024-02-08 | XR_ITS ---
EXAMINATION: XR HIP, LEFT CLINICAL INFORMATION: Left hip pain COMPARISON: X-ray pelvis and hip on 08/31/2022 TECHNIQUE: Frontal x-ray of the pelvis, Frontal and Crosstable lateral x-rays of left hip. FINDINGS: BONES: There is impacted fracture left femoral neck without significant angulation. JOINTS: Alignment of hip joint is normal. SOFT TISSUE: Abdominal aorta and bilateral common iliac metastatic stent grafts are present. Soft tissue is normal. No radiopaque foreign body or abnormal air collection is seen. XR/XR hip LT w PEL1V IMPRESSION: 1. Interval development of Impacted fracture of the left femoral neck without significant angulation. 2. Unchanged, no pelvic fracture is seen. 3. Unchanged status post abdominal and bilateral aortic stent graft repair.
--- NOTE | ~2024-02-08 | XR_ITS ---
EXAMINATION: XR KNEE, LEFT CLINICAL INFORMATION: Left hip pain. COMPARISON: None available. TECHNIQUE: AP and lateral views of the left knee. FINDINGS: Bones are osteopenic. No acute fracture or malalignment. No appreciable joint effusion. Joint spaces appear well-preserved. Vascular calcifications are present at the popliteal and femoral arteries. There is enthesopathic spurring at the quadriceps tendon insertion on the patella. XR/XR knee LT 2V IMPRESSION: 1. No acute osseous findings at the left knee. 2. Osteopenia.
[2024-02-08 11:25] LABS: Alanine Aminotransferase 13 U/L (0-31); Albumin Level 3.6 g/dL (3.5-5.0); Alkaline Phosphatase 95 U/L (39-117); Anion Gap 13 (12-20); Aspartate Amino Transferase 14 U/L (5-31); Bilirubin Total 0.8 mg/dL (0.0-1.0); Blood Urea Nitrogen 28 mg/dL (9-16); Calcium 9.8 mg/dL (8.4-10.2); Carbon Dioxide 29 mmol/L (22-29); Chloride 104 mmol/L (96-108); Cholesterol 142 mg/dL (<200); Estimated Glomerular Filt Rate 59; Glucose Fasting 112 mg/dL (60-99); HDL Cholesterol 66 mg/dL (>40); LDL Cholesterol Calculated 59 mg/dL (<100); Potassium 4.1 mmol/L (3.3-5.1); Sodium 142 mmol/L (135-145); Total Protein 7.1 g/dL (6.5-8.0); Triglycerides 86 mg/dL (<150)
== END 2024-02-08 09:08 | disposition home or self-care (01) ==
LOC: HO.LAB 09:07
PROVIDERS: Absent Provider Surgery Vascular Surgery; PCP Physician Assistant; Visit Provider Nurse Practitioner
DX: M25.552 Pain in left hip (principal); M25.562 Pain in left knee; K59.04 Chronic idiopathic constipation; K21.9 Gastro-esophageal reflux disease without esophagitis; E78.5 Hyperlipidemia, unspecified
CPT/HCPCS: 36415; 73502; 73560; 80053; 80061; 99212

== ENCOUNTER 2024-02-08 11:03 | Inpatient (IN) | payer OTHER, SELFPAY ==
--- NOTE | ~2024-02-08 | FL_ITS ---
EXAMINATION: Modified Barium Swallow CLINICAL INFORMATION: Dysphagia. COMPARISON: None. TECHNIQUE: Modified barium swallow was performed under lateral fluoroscopy with patient in standing position. Barium mixed with solids and liquids of different consistencies was administered by the speech pathologist. Examination was recorded in the fluoroscopy suite. FINDINGS: Laryngeal penetration was seen to level the vocal cords with thin consistency barium. No subglottic aspiration was observed. FLUOROSCOPY TIME: 4 minutes 30 seconds Number of Spot Images: N/A DOSE AREA PRODUCT: 1159 uGy-m2 (microgray-meter squared) FL/FL barium swallow modified IMPRESSION: Laryngeal penetration was seen to level the vocal cords with thin consistency barium. No subglottic aspiration was observed. Refer to the full speech therapy report for further clarification. This procedure was performed by Rustam Portillo PA-C, and supervised by Dr. Rosenberg
--- NOTE | ~2024-02-08 | XR_ITS ---
EXAMINATION: XR CHEST CLINICAL INFORMATION: Increased oxygen requirement COMPARISON: Chest x-ray on 01/03/2024 TECHNIQUE: Frontal view of the chest was obtained. FINDINGS: vascularity. LUNGS: Lungs are clear. No pneumothorax is seen. BONES: Bony skeleton is osteopenic. Multilevel wedge compression fractures are present. There is mid thoracic vertebroplasty with injection of methylmethacrylate. Mild lower thoracic dextroscoliosis is present.. XR/XR chest 1V IMPRESSION: 1. Unchanged, No acute cardiopulmonary disease. 2. Unchanged status post mid thoracic vertebroplasty.
--- NOTE | ~2024-02-08 | CT_ITS ---
EXAMINATION: CT HEAD WITHOUT CONTRAST CLINICAL INFORMATION: Head strike. COMPARISON: 09/11/2022 TECHNIQUE: Contiguous axial imaging was performed from the skull base to vertex without intravenous administration of contrast. This CT examination was performed using dose optimization techniques as appropriate, variously including the following: *Automated exposure control *Adjustment of mA and/or kV according to patient size (this includes techniques or standardized protocols for targeted exams where dose is matched to indication/reason for exam; i.e. extremities or head) *Use of iterative reconstruction technique DLP: 630 mGy-cm FINDINGS: There is diminished attenuation in the right posterior parietal lobe extending towards the right occipital lobe which appears more conspicuous today than on the 2022 exam and could reflect an old infarct. I do not see evidence for hemorrhage, mass, or extra-axial collection. Extensive deep white matter gliosis is noted. The calvarium is intact. No fracture. CT/CT head/brain wo IV con IMPRESSION: Progressive ischemic changes most likely in the right posterior parietal lobe, not acute, but new from 09/11/2022. No fracture or intracranial hemorrhage.
--- NOTE | ~2024-02-08 | XR_ITS ---
EXAMINATION: XR CHEST CLINICAL INFORMATION: Choking episode COMPARISON: Chest radiograph yesterday TECHNIQUE: Frontal view of the chest was obtained. FINDINGS: Heart size upper limits of normal. Some chronic reticular nodular markings are seen in the lungs. There is a slight increase in left basilar atelectasis with some minimal blunting of the left costophrenic angle not seen yesterday. Again noted are vertebroplasty changes in the mid thoracic spine along with an abdominal aortic stent graft. XR/XR chest 1V IMPRESSION: Slight increase in left basilar atelectasis with some minimal blunting of the left costophrenic angle.
[2024-02-08 11:19] VITALS: BP 115/49; PULSE 92; RESP 34; O2SAT 90; BMI 21.7
--- NOTE | 2024-02-08 12:12 | ECG_ITS ---
Test Reason : SOB Blood Pressure : / mmHG Vent. Rate : 111 BPM Atrial Rate : 111 BPM P-R Int : 116 ms QRS Dur : 076 ms QT Int : 334 ms P-R-T Axes : 078 060 045 degrees QTc Int : 454 ms Sinus tachycardia with occasional Premature ventricular complexes Low voltage QRS Borderline ECG When compared with ECG of 13-SEP-2022 11:01, Premature ventricular complexes are now Present Premature atrial complexes are no longer Present Vent. rate has increased BY 45 BPM T wave inversion no longer evident in Anterolateral leads Referred By: Miquel Licea Electronically Signed By:Stuart Alberto
--- NOTE | 2024-02-08 12:21 | ED_ITS ---
HPI - General Adult General Chief complaint: Fall Stated complaint: Hip fracture Time Seen by Provider: 02/08/24 11:56 Source: patient Mode of arrival: ambulatory Limitations: no limitations History of Present Illness HPI narrative: This is a 78-year-old woman with chronic hypoxic respiratory failure due to COPD on supplemental oxygen, hypertension, hyperlipidemia, CAD, aortic stenosis, AAA repair on Eliquis, GERD who presents for evaluation of left hip fracture. She states that she fell 3 days ago. She reports tripping on the base of the fan causing her to fall onto her left side. She states difficulty ambulating, but states that she has been able to do so since the incident. She states that she did hit the side of her head. She states mild knee pain associated with this. She states that she went to her GI doctor today for a routine follow up and they did x-rays and found a broken hip. She states no arm pain or shoulder pain. She states no chest pain or dyspnea. She states no abdominal pain. She states no headache. She states no vision changes speech changes. She states no nausea or vomiting. She states no back pain or neck pain. She states no paresthesias. She states no dysuria or urinary frequency/urgency. Related Data Home Medications ?Medication ?Instructions ?Recorded ?Confirmed atorvastatin 80 mg tablet 80 mg PO DAILY 04/18/20 02/08/24 latanoprost 0.005 % eye drops 1 drp ophthalmic (eye) BEDTIME 07/02/22 02/08/24 lisinopril 10 mg tablet 10 mg PO DAILY 10/16/22 02/08/24 nebulizers 12/18/22 01/26/24 calcium carbonate 500 mg PO BID 06/24/23 02/08/24 aspirin 81 mg tablet,delayed 81 mg PO DAILY 10/27/23 02/08/24 release (Adult Aspirin Regimen) cholecalciferol (vitamin D3) 25 25 mcg PO DAILY 12/22/23 02/08/24 mcg (1,000 unit) tablet cyanocobalamin (vitamin B-12) 1,000 mcg PO DAILY 12/22/23 02/08/24 1,000 mcg tablet albuterol sulfate 2.5 mg/3 mL 2.5 mg inhalation Q6H PRN SOB 02/08/24 02/08/24 (0.083 %) solution for nebulization albuterol sulfate 90 mcg/actuation 2 inh inhalation Q4H PRN shortness 02/08/24 02/08/24 aerosol inhaler of breath or wheezing yojyzf-pppkdifn-ihadxvk 1 cap PO TIDAC 02/08/24 02/08/24 24,000-76,000-120,000 unit capsule,delayed rel (Creon) metoclopramide HCl 10 mg tablet 10 mg PO Q6H PRN nausea or vomiting 02/08/24 02/08/24 omeprazole 20 mg capsule,delayed 20 mg PO BID@0630,1630 02/08/24 02/08/24 release Previous Rx's ?Medication ?Instructions ?Recorded nitroglycerin 0.4 mg sublingual 0.4 mg sublingual Q5M PRN chest 08/24/23 tablet pain #30 tabs fluticasone propionate 115 2 puff inhalation Q12H 30 days #12 12/22/23 mcg-salmeterol 21 mcg/actuation grams HFA inhaler (Advair HFA) Allergies Allergy/AdvReac Type Severity Reaction Status Date / Time No Known Allergies Allergy Verified 02/08/24 11:22 Review of Systems 2 Review of Systems: ROS as per HPI [facility] Past Medical History Medical History COPD (chronic obstructive pulmonary disease) Left ulnar fracture COPD (chronic obstructive pulmonary disease) COVID-19 Early satiety Abdominal bloating COPD exacerbation Essential hypertension Precordial chest pain Tachycardia Dyspnea CVA (cerebral vascular accident) Atherosclerotic cardiovascular disease Psoriasis Hydroureter, right Pernicious anemia Raynauds disease Hernia Emphysema lung Emphysema of lung Asthma History of pyloric channel ulcer Glaucoma Mild acid reflux Surgical History S/P cardiac catheterization H/O carotid endarterectomy (04/01/20) History of AAA (abdominal aortic aneurysm) repair Hx of shoulder surgery Hx of varicose vein stripping Family History Family History Father No problems noted. Mother No problems noted. Sister No problems noted. Sister No problems noted. Sister No problems noted. Sister No problems noted. Sister Cancer Son No problems noted. Social History Social History Housing: House Unable to assess alcohol history related to: Unable to respond Alcohol intake: never Patient Tobacco Use Status: Former Tobacco user Tobacco use type: Cigarette Years Smoked: 65 e-Cigarette/Vaping Use: Never Used Second Hand Smoke Exposure: No Advance Directives Date on File: 06/11/21 service: No Current occupational status: retired Cognitive needs: Yes Hearing needs: No Vision needs: Yes Physical Exam ED Vital Signs: Vital Signs - 24 hr 02/08/24 11:19 02/08/24 14:50 Temperature 97.2 F Pulse Rate 92 112 H Respiratory Rate 34 H 33 H Blood Pressure 115/49 L 144/52 H Pulse Oximetry 90 L 95 Oxygen Delivery Method Nasal Cannula Oxymask Oxygen Flow Rate 4 BMI result Body Mass Index 21.7 Gen: NAD, AOx3 HEENT: NCAT, EOMI, normal conjunctiva, no periorbital or postauricular ecchymosis CV: Tachycardic rate, regular rhythm, positive systolic murmur Pulm: Scattered expiratory wheezes, no respiratory distress GI: Soft, NTND, no rebound, guarding or rigidity MSK: No midline vertebral tenderness to palpation, full range of motion with neck flexion/extension, + tenderness to palpation to the left hip with limited active hip flexion/extension and no overlying skin changes, left knee with faint anterior erythema without warmth/focal tenderness/induration/fluctuance, no chest wall tenderness to palpation Neuro: Grossly non focal, 5/5 elbow flexion/extension and 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 Medications Administered Discontinued Medications Generic Name Dose Route Start Last Admin Trade Name Freq PRN Reason Stop Dose Admin Acetaminophen 975 mg 02/08/24 11:47 02/08/24 13:01 Acetaminophen 325 Mg Tablet PO 02/08/24 11:48 975 mg ONCE ONE Administration Albuterol Sulfate 5 mg/ 0 mg 02/08/24 12:20 02/08/24 12:28 Albuterol/Ipratropium 3 ml INHALE 02/08/24 12:21 2.5 each ONCE ONE Administration Fentanyl 25 mcg 02/08/24 12:21 02/08/24 13:04 Fentanyl Citrate/Pf 100 Mcg/2 Ml Vial IVPUSH 02/08/24 12:22 25 mcg ONCE ONE Administration Protocol Lactated Ringer's 500 mls @ 999 mls/hr 02/08/24 13:45 02/08/24 14:55 Lr IV 02/08/24 14:15 Infused .Q31M [place] Infusion Methylprednisolone Sodium Succinate 125 mg 02/08/24 13:42 02/08/24 13:56 Methylprednisolone Sod Succ 125 Mg/2 Ml Vial IVPUSH 02/08/24 13:43 125 mg ONCE ONE Administration Oxycodone HCl 5 mg 02/08/24 14:06 02/08/24 14:55 Oxycodone Hcl Immed Release 5 Mg Tablet PO 02/08/24 14:07 5 mg ONCE ONE Administration Medical Decision Making Medical Decision Making MDM Narrative: I reviewed and interpreted patient's labs which is notable for stable chronic anemia with hemoglobin 11.7 (previous range of 11.2-13.4 the last 2 years), otherwise labs were normal for mildly elevated BUN and creatinine of 30 and 1.04 respectively (for which patient is provided gentle rehydration with 500 cc IV LR fluid bolus), venous blood gas is consistent with acute respiratory acidosis with a pH 7.31/pCO2 70/HC03 35. A given presence of wheezes on exam consistent with a bronchospasm I suspect the patient has mild COPD exacerbation, for this reason patient is provided DuoNeb and 125 mg IV Solu-Medrol. This is not sepsis. Patient presents after mechanical fall and is found to have fracture of the left femoral neck. CT scan of the head is unremarkable for any acute trauma. Chest x-ray is unremarkable. Patient is not have any infectious symptoms such as fever, increased cough or sputum production to suggest pneumonia. For this reason, antibiotics and provided. I discussed case and management with workforce management consultant orthopedic surgery (Lupe Pickett). I discussed case and management with admitting hospitalist Dr. Andrade. Patient is admitted to the hospitalist service in stable and improved condition with Orthopedic surgery consulting. Critical Care Time: A total of 45 minutes spent in direct patient care with coordinating critical resuscitation, procedures, reviewing records, discussing with consultants, reviewing labs, and/or managing patient. Admission/Observation Consideration of admission/observation: Escalation of care including admission/observation considered Consult Healthcare Provider Management of the patient was discussed with: Hospitalist and Physiognomist I discussed case and management with workforce management consultant orthopedic surgery (Lupe Pickett). I discussed case and management with admitting hospitalist Dr. Andrade. Lab Data MDM Lab Attestation statement: I reviewed the patient's lab results. I reviewed and interpreted patient's labs which is notable for stable chronic anemia with hemoglobin 11.7 (previous range of 11.2-13.4 the last 2 years), otherwise labs were normal for mildly elevated BUN and creatinine of 30 and 1.04 respectively, venous blood gas is consistent with acute respiratory acidosis with a pH 7.31/pCO2 70/HC03 35. 02/08/24 12:12 02/08/24 12:12 Labs: Lab Results 02/08/24 02/08/24 Range/Units 12:12 12:18 WBC 8.2 (4.8-10.8) X10*3/uL RBC 4.41 (4.20-5.50) X10*6/uL Hgb 11.7 L (12.0-16.0) g/dl Hct 38.7 (37.0-47.0) % MCV 87.8 (80.0-98.0) fL MCH 26.5 L (27.0-33.0) pg MCHC 30.2 L (31.0-35.0) g/dl RDW 17.4 H (11.0-16.0) % Plt Count 210 (160-400) X10*3/uL MPV 11.9 (9.4-12.3) fL Immature Gran % (Auto) 0.4 (0.0-0.4) % Neut % (Auto) 82.0 H (45-73) % Lymph % (Auto) 6.8 L (20-40) % Sanborn % (Auto) 5.5 (2-11) % Eos % (Auto) 5.1 H (0-4) % Baso % (Auto) 0.2 (0-2) % Lymph # (Auto) 0.6 L (1.2-4.9) X10*3/uL [place] # (Auto) 0.5 (0.1-1.2) X10*3/uL Eos # (Auto) 0.4 (0.0-0.4) X10*3/uL Baso # (Auto) 0.0 (0.0-0.2) X10*3/uL Abs Immat Gran (auto) 0.03 (0.00-0.03) X10*3/uL Absolute Neuts (auto) 6.7 (2.0-8.3) x10*3/uL Absolute Nucleated RBC 0.000 (0.0-0.012) X10*3/uL Nucleated RBC % (auto) 0.0 (0.0-0.2) /100WBC PT 12.2 (11.1-13.3) SEC INR 1.0 (0.9-1.1) VBG pH 7.31 L (7.32-7.43) VBG pCO2 70 mmHg VBG pO2 40 mmHg VBG HCO3 35 H (22-26) mmol/L VBG O2 Saturation 59.0 % VBG Base Excess 7.1 mmol/L Sodium 144 (135-145) mmol/L Potassium 4.3 (3.3-5.1) mmol/L Chloride 103 (96-108) mmol/L Carbon Dioxide 32 H (22-29) mmol/L Anion Gap 13 (12-20) BUN 30 H (9-16) mg/dL Creatinine 1.04 (0.5-1.4) mg/dL Estim Creat Clear Calc 38.4 Estimated GFR 51 Random Glucose 105 (60-115) mg/dL Calcium 9.7 (8.4-10.2) mg/dL Total Bilirubin 0.8 (0.0-1.0) mg/dL AST 15 (5-31) U/L ALT 10 (0-31) U/L Alkaline Phosphatase 97 (39-117) U/L Troponin I High Sens 5.4 (<3.5-17.0) ng/L B-Natriuretic Peptide 185 H (<100) pg/mL Total Protein 7.2 (6.5-8.0) g/dL Albumin 3.7 (3.5-5.0) g/dL Blood Type A Positive Antibody Screen NEGATIVE Independent Interpretation I performed an independent interpretation of an: EKG, Plain X-Ray and CT Scan Interpretation: I reviewed and independently interpreted the patient's EKG which demonstrates sinus rhythm at 111 beats per minute, WV 116, QRS 76, QTC 454, PVC, no STEMI. I independently reviewed and interpreted the patient's x-ray which demonstrates fracture of the left femoral neck. I independently reviewed and interpreted the patient's CT scan of the head which demonstrates no acute intracranial hemorrhage Radiology Impression Discussion of test interpretation with radiology: I have reviewed the radiologist's reading. Radiologist Impression: IMPRESSION: 1. Interval development of Impacted fracture of the left femoral neck without significant angulation. 2. Unchanged, no pelvic fracture is seen. 3. Unchanged status post abdominal and bilateral aortic stent graft repair. Dictated By: Rai Shah IMPRESSION: Progressive ischemic changes most likely in the right posterior parietal lobe, not acute, but new from 09/11/2022. No fracture or intracranial hemorrhage. Dictated By: Daniel Caruso MD Signed By: <Electronically signed by Daniel Caruso MD in [place]> 02/08/24 1555 XR/XR chest 1V IMPRESSION: 1. Unchanged, No acute cardiopulmonary disease. 2. Unchanged status post mid thoracic vertebroplasty. Dictated By: Rai Shah Signed By: <Electronically signed by Rai Shah in [place]> 02/08/24 1406 Discharge Plan Discharge Clinical Impression: Closed fracture of left hip, Acute exacerbation of chronic obstructive pulmonary disease (COPD) Patient Disposition: Admitted As Inpatient Print Language: Lithuanian
[2024-02-08] MEDS: Albuterol Sulfate 5 MG, Albuterol/Iprat 2.5/0.5MG 3 ML 3 ML INHALE (12:28)
[2024-02-08 12:29] LABS: Venous Blood Gas Refer to POC result
[2024-02-08 12:29] LABS: VBG Base Excess 7.1 mmol/L; VBG HCO3 35 mmol/L (22-26); VBG pCO2 70 mmHg; VBG pH 7.31 (7.32-7.43); VBG pO2 40 mmHg
[2024-02-08 12:35] LABS: Basophils Percent Auto 0.2 % (0-2); Eosinophils Absolute Auto 0.4 X10*3/uL (0.0-0.4); Eosinophils Percent Auto 5.1 % (0-4); Hematocrit 38.7 % (37.0-47.0); Hemoglobin 11.7 g/dl (12.0-16.0); Imm Gran Abs Auto 0.03 X10*3/uL (0.00-0.03); Imm Gran Pct Auto 0.4 % (0.0-0.4); Lymphocytes Absolute Auto 0.6 X10*3/uL (1.2-4.9); Lymphocytes Percent Auto 6.8 % (20-40); MANUAL DIFF FLAG NO; Mean Corpuscular HGB Conc 30.2 g/dl (31.0-35.0); Mean Corpuscular Hemoglobin 26.5 pg (27.0-33.0); Mean Corpuscular Volume 87.8 fL (80.0-98.0); Mean Platelet Volume 11.9 fL (9.4-12.3); Monocytes Absolute Auto 0.5 X10*3/uL (0.1-1.2); Monocytes Percent Auto 5.5 % (2-11); Neutrophils Absolute Auto 6.7 x10*3/uL (2.0-8.3); Platelet Count 210 X10*3/uL (160-400); Red Blood Count 4.41 X10*6/uL (4.20-5.50); Red Cell Distribution Width 17.4 % (11.0-16.0); White Blood Count 8.2 X10*3/uL (4.8-10.8)
[2024-02-08 12:40] LABS: Prothrombin Time 12.2 SEC (11.1-13.3)
[2024-02-08 12:46] LABS: Alanine Aminotransferase 10 U/L (0-31); Albumin Level 3.7 g/dL (3.5-5.0); Alkaline Phosphatase 97 U/L (39-117); Anion Gap 13 (12-20); Aspartate Amino Transferase 15 U/L (5-31); Bilirubin Total 0.8 mg/dL (0.0-1.0); Blood Urea Nitrogen 30 mg/dL (9-16); Calcium 9.7 mg/dL (8.4-10.2); Carbon Dioxide 32 mmol/L (22-29); Chloride 103 mmol/L (96-108); Creatinine Clr Calc Pharmacy 38.4; Estimated Glomerular Filt Rate 51; Glucose Random 105 mg/dL (60-115); Potassium 4.3 mmol/L (3.3-5.1); Sodium 144 mmol/L (135-145); Total Protein 7.2 g/dL (6.5-8.0)
[2024-02-08 12:51] LABS: B Type Natriuretic Peptide 185 pg/mL (<100)
[2024-02-08 12:52] LABS: Troponin-I High Sensitivity 5.4 ng/L (<3.5-17.0)
[2024-02-08] MEDS: Acetaminophen 325 MG TABLET 975 MG PO (13:01)
[2024-02-08] MEDS: fentaNYL citrate/PF 100 MCG/2 ML VIAL 25 MCG IVPUSH (13:04)
[2024-02-08] MEDS: methylPREDNISolone Sod Succ 125 MG/2 ML VIAL IVPUSH (13:56)
[2024-02-08] MEDS: Lactated Ringers 500 ML 999 ML IV (13:56)
--- NOTE | 2024-02-08 14:05 | MHC.EDTECH ---
This tech piyush type and screen
[2024-02-08 14:50] VITALS: BP 144/52; PULSE 112; RESP 33; TEMP 36.2; O2SAT 95
[2024-02-08] MEDS: oxyCODONE HCl Immed Release 5 MG TABLET PO ×2 (14:55→21:01)
--- NOTE | 2024-02-08 15:27 | P.CONOP_ITS ---
History of Present Illness HPI Consult date: 02/08/24 <Lupe Villafuerte PA-C - Last Filed: 02/08/24 20:59> Chief complaint: R hip fracture <Lupe Villafuerte PA-C - Last Filed: 02/08/24 20:59> Narrative: This is a 78-year-old woman with chronic hypoxic respiratory failure due to COPD on supplemental oxygen, hypertension, hyperlipidemia, CAD, aortic stenosis, AAA repair- only on ASA, GERD who presents for evaluation of left hip fracture. She states that she fell 3 days ago, she states she tripped on the base of the fan causing her to fall onto her left side. She was unable to get up at that time, she had her friend pick her up. She states difficulty ambulating, but states that she has been able to do so since the incident with assistance. She was hesitant to come to the ED after the fall, and while she was out today sat her GI appt, she was prompted to come for evaluation She was admitted to the medical service after sustaining a mechanical fall resulting in a left femoral neck fracture. Orthopedics was consulted for further recommendations. <Lupe Villafuerte PA-C - Last Filed: 02/08/24 20:59> Review of Systems 2 Review of Systems: Yes all other systems are reviewed and are negative < Lupe Villafuerte PA-C - Last Filed: 02/08/24 20:59> PMFSH Past Medical History Medical History: Medical History COPD (chronic obstructive pulmonary disease) Left ulnar fracture COPD (chronic obstructive pulmonary disease) COVID-19 Early satiety Abdominal bloating COPD exacerbation Essential hypertension Precordial chest pain Tachycardia Dyspnea CVA (cerebral vascular accident) Atherosclerotic cardiovascular disease Psoriasis Hydroureter, right Pernicious anemia Raynauds disease Hernia Emphysema lung Emphysema of lung Asthma History of pyloric channel ulcer Glaucoma Mild acid reflux <Lupe Villafuerte PA-C - Last Filed: 02/08/24 20:59> Family History Family History: Family History Father No problems noted. Mother No problems noted. Sister No problems noted. Sister No problems noted. Sister No problems noted. Sister No problems noted. Sister Cancer Son No problems noted. <Lupe Villafuerte PA-C - Last Filed: 02/08/24 20:59> Surgical History Surgical History: Surgical History S/P cardiac catheterization H/O carotid endarterectomy (04/01/20) History of AAA (abdominal aortic aneurysm) repair Hx of shoulder surgery Hx of varicose vein stripping <Lupe Villafuerte PA-C - Last Filed: 02/08/24 20:59> Social History Social History: Social History Household Members: None Housing: House Do you presently have visiting nurse or other home services: Yes Unable to assess alcohol history related to: Unable to respond Alcohol intake: never Patient Tobacco Use Status: Former Tobacco user Tobacco use type: Cigarette Years Smoked: 65 Smoked in Last 30 Days: No e-Cigarette/Vaping Use: Never Used Second Hand Smoke Exposure: No Use of substances other than those prescribed or required for medical reasons: No Currently Displaying Signs/Symptoms of Drug Intoxication Withdrawal: No Have you been hit, kicked, punched, or otherwise hurt by someone within the past year? If so, by whom?: No Are you DNR?: No Advance Directives: Yes Advance Directives on File: Yes Advance Directives Date on File: 06/11/21 Do you have a plan to hurt others: No Plan Recently lost weight without trying: No Nutrition Risks: No Nutritional Risk Patient : No service: No Current occupational status: retired Cognitive needs: Yes Hearing needs: No Vision needs: Yes <Lupe Villafuerte PA-C - Last Filed: 02/08/24 20:59> Meds Allergies/Adverse reactions: Allergies Allergy/AdvReac Type Severity Reaction Status Date / Time No Known Allergies Allergy Verified 02/08/24 11:22 <Lupe Villafuerte PA-C - Last Filed: 02/08/24 20:59> Home medications: Home Medications ?Medication ?Instructions ?Recorded ?Confirmed ?Last Taken ?Type atorvastatin 80 mg tablet 80 mg PO DAILY 04/18/20 02/08/24 02/08/24 History latanoprost 0.005 % eye drops 1 drp ophthalmic (eye) BEDTIME 07/02/22 02/08/24 Unknown History lisinopril 10 mg tablet 10 mg PO DAILY 10/16/22 02/08/24 02/08/24 History nebulizers 12/18/22 01/26/24 02/08/24 09:00 History calcium carbonate 500 mg PO BID 06/24/23 02/08/24 02/08/24 History aspirin 81 mg tablet,delayed 81 mg PO DAILY 10/27/23 02/08/24 02/08/24 History release (Adult Aspirin Regimen) cholecalciferol (vitamin D3) 25 25 mcg PO DAILY 12/22/23 02/08/24 02/08/24 History mcg (1,000 unit) tablet cyanocobalamin (vitamin B-12) 1,000 mcg PO DAILY 12/22/23 02/08/24 02/08/24 History 1,000 mcg tablet albuterol sulfate 2.5 mg/3 mL 2.5 mg inhalation Q6H PRN SOB 02/08/24 02/08/24 Unknown History (0.083 %) solution for nebulization albuterol sulfate 90 mcg/actuation 2 inh inhalation Q4H PRN shortness 02/08/24 02/08/24 Unknown History aerosol inhaler of breath or wheezing [id number] 1 cap PO TIDAC 02/08/24 02/08/24 02/08/24 History 24,000-76,000-120,000 unit capsule,delayed rel (Creon) metoclopramide HCl 10 mg tablet 10 mg PO Q6H PRN nausea or vomiting 02/08/24 02/08/24 Unknown History omeprazole 20 mg capsule,delayed 20 mg PO BID@0630,1630 02/08/24 02/08/24 02/08/24 History release <Bhupendra-Pauline Villafuerte PA-C - Last Filed: 02/08/24 20:59> Physical Exam 2 Vital Signs: Vital Signs: Last Vital Signs Temp 97.2 F 02/08/24 14:50 Pulse 112 H 02/08/24 14:50 Resp 33 H 02/08/24 14:50 BP 144/52 H 02/08/24 14:50 Pulse Ox 95 02/08/24 14:50 O2 Del Method Oxymask 02/08/24 14:50 O2 Flow Rate 4 02/08/24 14:50 Oxygen Flow Rate 3 02/08/24 11:19 BMI result Body Mass Index 21.7 <Fannya JORGE huffmanSandra Last Filed: 02/08/24 20:59> Const: General: cooperative, healthy appearing, comfortable, no acute distress, well developed and alert <MalathiPaulineJORGE MccartySandra - Last Filed: 02/08/24 20:59> Orientation/consciousness: patient oriented x3 <Fannya JORGE huffmanSandra Last Filed: 02/08/24 20:59> HEENT: Head: Yes normal to inspection, Yes normocephalic and Yes atraumatic <Fannya JORGE huffmanSandra Last Filed: 02/08/24 20:59> Eyes: General: appearance normal, both eyes and all related structures < BhupendraXuJORGE MccartySandra Last Filed: 02/08/24 20:59> Neck: Neck: Yes normal visual inspection and Yes no lymphadenopathy <Malathi PenalozaJORGE MccartySandra Last Filed: 02/08/24 20:59> Resp: Effort & Inspection: normal respiratory effort and able to speak in complete sentences <FannyJORGE MccartySandra Last Filed: 02/08/24 20:59> Cardio: Rate: regular rate <FannyJORGE MccartySandra Last Filed: 02/08/24 20:59> Peripheral pulses: Peripheral pulses 2+ throughout <BhupendraXuJORGE MccartySandra Last Filed: 02/08/24 20:59> GI: Inspection: Yes normal to inspection <FannyJORGE MccartySandar Last Filed: 02/08/24 20:59> Palpation (GI): Soft to palpation <MalathiPaulineJORGE MccartySandra Last Filed: 02/08/24 20:59> Skin: General skin exam: no rashes or lesions noted <MalathiPaulineJORGE MccartySandra Last Filed: 02/08/24 20:59> Neuro: General: patient oriented x3 <MalathiPaulineJORGE MccartySandra - Last Filed: 02/08/24 20:59> Extrem: Other: Left hip normal to inspection, no open wounds or abraisons She has pain with log roll Difficulty with SLR She is able to plantar and dorsiflex the foot. NVI <Lupe Villafuerte PA-C - Last Filed: 02/08/24 20:59> Psych: Appearance: grossly normal <Lupe Villafuerte PA-C - Last Filed: 02/08/24 20:59> Mental Status: mental status grossly normal <Lupe Villafuerte PA-C - Last Filed: 02/08/24 20:59> Results Labs Result Diagrams: 02/10/24 09:28 02/10/24 09:28 <Lupe Villafuerte PA-C - Last Filed: 02/08/24 20:59> Labs: Abnormal lab results 02/08/24 02/08/24 Range/Units 12:12 12:18 Hgb 11.7 L (12.0-16.0) g/dl MCH 26.5 L (27.0-33.0) pg MCHC 30.2 L (31.0-35.0) g/dl RDW 17.4 H (11.0-16.0) % Neut % (Auto) 82.0 H (45-73) % Lymph % (Auto) 6.8 L (20-40) % Eos % (Auto) 5.1 H (0-4) % Lymph # (Auto) 0.6 L (1.2-4.9) X10*3/uL VBG pH 7.31 L (7.32-7.43) VBG HCO3 35 H (22-26) mmol/L Carbon Dioxide 32 H (22-29) mmol/L BUN 30 H (9-16) mg/dL B-Natriuretic Peptide 185 H (<100) pg/mL H & H 02/08/24 Range/Units 12:12 Hgb 11.7 L (12.0-16.0) g/dl Hct 38.7 (37.0-47.0) % Coagulation 02/08/24 Range/Units 12:12 INR 1.0 (0.9-1.1) All other labs normal. <Lupe Villafuerte PA-C - Last Filed: 02/08/24 20:59> Diagnostic results Hip x-ray: report reviewed (LT w PEL1V IMPRESSION: 1. Interval development of Impacted fracture of the left femoral neck without significant angulation. 2. Unchanged, no pelvic fracture is seen. 3. Unchanged status post abdominal and bilateral aortic stent graft repair. ) <Lupe Villafuerte PA-C - Last Filed: 02/08/24 20:59> Assessment and Plan (1) Closed fracture of left hip: Status: Acute <Lupe Villafuerte PA-C - Last Filed: 02/08/24 20:59> I discussed the case with Dr Armijo and explained the extent of the injury to the patient and options available which include surgical intervention. I explained the procedure in detail along with the length of recovery and rehab course. I explained the risk, benefits and alternatives. Risk including, but not limited to infection, blood clots, bleeding, non union or malunion and nerve/tissue damage to surrounding areas and overall decompensation of her overall health. I answered all their questions and with their understanding they have consented to move forward with Operative Fixation of the left femur. The patient will be T&S, med clearance obtained and remain NPO after midnight. <Malathi Villafuerte PA-C - Last Filed: 02/08/24 20:59> I discussed the case with the patient and her HCP and explained the extent of the injury to the patient and options available which include surgical intervention. I explained hemiarthroplasty vs CRPP in detail along with the length of recovery and rehab course. I explained the risk, benefits and alternatives. Risk including, but not limited to infection, blood clots, bleeding, non union or malunion and nerve/tissue damage to surrounding areas and overall decompensation of her overall health. I answered all their questions and with their understanding they have consented to move forward with hemiarthroplasty left hip. <Cj Armijo MD - Last Filed: 02/10/24 17:01> Procedures Date of Service Date of Service: 02/08/24 <Lupe Villafuerte PA-C - Last Filed: 02/08/24 20:59> 02/10/24 <Cj Armijo MD - Last Filed: 02/10/24 17:01>
--- NOTE | 2024-02-08 15:31 | PHA.MEDREC ---
Addendum entered by Gabriela Lake, [facility] 02/08/24 15:33: daughter also said that the patient has a PRN metoclopramide 10 mg Q6H PRN but hasn't used in a while. Original Note: Pharmacy Consult ? Medication Reconciliation Pharmacy has completed the medication reconciliation, patient had family (daughter) at bedside. Daughter had a list on her phone and confirmed all the meds. Stated that pt was taken off of eliquis and switched to aspirin, do not take ondansetron, senna, and the vitamin B complex. Patient stated she has the Incruse inhaler but daughter stated she does not actually use it, so it was left off.
[2024-02-08 17:02] VITALS: BP 108/57; PULSE 100; RESP 20; TEMP 36.2; O2SAT 93
--- NOTE | 2024-02-08 17:02 | PM.IMHP ---
History of Present Illness Date of Service: 02/08/24 Attending physician on admission: [facility] Chief Complaint: fall 70-year-old female with history of hypertension, asthma/COPD overlap with chronic hypoxemic hypercapnic respiratory failure on 3-4 L supplemental O2, AAA s/p repair, aortic stenosis, history of CVA, history of DVT no longer on anticoagulation, hyperlipidemia, GERD, CAD presented to the ED earlier today after sustaining a mechanical fall 3 days ago. She states she was ambulating and tripped over a fan landing on the left hip. She does believe she hit her head but did not lose consciousness. She denies any prodrome leading up to the fall including lightheadedness, palpitations, vision changes, headache, weakness, paresthesias, shortness of breath, chest pain. She does report chronic issues with dyspnea, wheezing, and productive cough but denies any changes in quality or severity of symptoms. She denies any recent increase in oxygen or albuterol usage. She states she was unable to get herself up without assistance after falling but has been ambulating though reports significant pain in the left hip while doing so. She is a former tobacco smoker with a 120 pack-year history but denies any illicit drug use or alcohol use. Since arrival, vital signs have been stable. Hematology studies significant for a mild normocytic anemia with H/H 11.7/38.7%. Renal function baseline, electrolyte levels normal. VBG shows a very mild respiratory acidosis with some compensation with pH 7.31, pCO2 70, bicarb 35. PT 12.2, INR 1.0. Troponin 5.4. BNP 185. Head CT negative for any acute intracranial abnormality which shows progressive ischemic changes most likely in the right posterior parietal lobe not acute but new from prior studies. Chest x-ray negative for any acute abnormality. X-ray of the left hip and pelvis shows interval development of impacted fracture of the left femoral neck without significant angulation. EKG shows sinus tachycardia with occasional PVCs, rate [address]/T-wave abnormalities. No acute ischemic changes. In the ED, has received IV LR, fentanyl, methylprednisolone, oxycodone, Tylenol, and DuoNeb. Review of Systems Review of Systems: Yes all other systems are reviewed and are negative [facility], [facility] Medical History COPD (chronic obstructive pulmonary disease) Left ulnar fracture COPD (chronic obstructive pulmonary disease) COVID-19 Early satiety Abdominal bloating COPD exacerbation Essential hypertension Precordial chest pain Tachycardia Dyspnea CVA (cerebral vascular accident) Atherosclerotic cardiovascular disease Psoriasis Hydroureter, right Pernicious anemia Raynauds disease Hernia Emphysema lung Emphysema of lung Asthma History of pyloric channel ulcer Glaucoma Mild acid reflux Family History Father No problems noted. Mother No problems noted. Sister No problems noted. Sister No problems noted. Sister No problems noted. Sister No problems noted. Sister Cancer Son No problems noted. Surgical History S/P cardiac catheterization H/O carotid endarterectomy (04/01/20) History of AAA (abdominal aortic aneurysm) repair Hx of shoulder surgery Hx of varicose vein stripping Social History Household Members: None Housing: House Do you presently have visiting nurse or other home services: Yes Unable to assess alcohol history related to: Unable to respond Alcohol intake: never Patient Tobacco Use Status: Former Tobacco user Tobacco use type: Cigarette Years Smoked: 65 Smoked in Last 30 Days: No e-Cigarette/Vaping Use: Never Used Second Hand Smoke Exposure: No Use of substances other than those prescribed or required for medical reasons: No Currently Displaying Signs/Symptoms of Drug Intoxication Withdrawal: No Have you been hit, kicked, punched, or otherwise hurt by someone within the past year? If so, by whom?: No Advance Directives: Yes Advance Directives on File: Yes Advance Directives Date on File: 06/11/21 Do you have a plan to hurt others: No Plan Recently lost weight without trying: No Nutrition Risks: No Nutritional Risk Patient : No service: No Current occupational status: retired Cognitive needs: Yes Hearing needs: No Vision needs: Yes Meds Allergies Allergy/AdvReac Type Severity Reaction Status Date / Time No Known Allergies Allergy Verified 02/08/24 11:22 Active Medications: Current Medications Acetaminophen (Acetaminophen 325 Mg Tablet) 650 mg PO Q6H PRN PRN Reason: Pain, Mild (Pain Scale 1-3), fever or headache Albuterol Sulfate (Albuterol Sulfate (0.083%) 2.5 Mg/3 Ml Vial.Neb) 2.5 mg INHALE Q6H PRN PRN Reason: Shortness of Breath Albuterol Sulfate (Albuterol Sulfate 90 Mcg 8 Gm Inhaler) 2 puff INHALE Q4H PRN PRN Reason: shortness of breath or wheezing Lipase/Protease/Amylase (Lipase/Prot/Amylase 24/76/120k 1 Cap Capsule.) 1 cap PO TIDAC [facility] Atorvastatin Calcium (Atorvastatin Calcium 80 Mg Tablet) 80 mg PO DAILY [facility] Calcium Carbonate (Calcium Carbonate 750 Mg Tab.Chew) 750 mg PO Q4H PRN PRN Reason: Heartburn Calcium Carbonate (Calcium Oyster Shell Elemental 500 Mg Tablet) 500 mg PO BID [facility] Cyanocobalamin (Cyanocobalamin (Vitamin B-12) 1,000 Mcg Tablet) 1,000 mcg PO DAILY [facility] Latanoprost (Latanoprost 0.005 % Ophth Phoebe 2.5 Ml Drops) 1 drop EYE-BOTH BEDTIME [facility] Magnesium Hydroxide (Milk Of Magnesia 30 Ml Oral.Susp) 30 ml PO DAILY PRN PRN Reason: Constipation Melatonin (Melatonin 3 Mg Tablet) 6 mg PO BEDTIME PRN PRN Reason: Insomnia Metoclopramide HCl (Metoclopramide Hcl 10 Mg Tablet) 10 mg PO Q6H PRN PRN Reason: nausea or vomiting Morphine Sulfate (Morphine Sulfate 4 Mg/Ml Cartridge) 2 mg IVPUSH Q4H PRN; Protocol PRN Reason: Pain, Severe (Pain Scale 7-10) Nitroglycerin (Nitroglycerin 0.4 Mg Tab.Subl) 0.4 mg SUBLINGUAL Q5M PRN PRN Reason: chest pain Non-Formulary Medication (Fluticasone Propion-Salmeterol [Advair Hfa]) 2 puff INHALE Q12H [facility] Omeprazole (Omeprazole 20 Mg Capsule.) 20 mg PO BID@0630,1630 [facility] Oxycodone HCl (Oxycodone Hcl Immed Release 5 Mg Tablet) 5 mg PO Q6H PRN PRN Reason: Pain, Moderate(Pain Scale 4-6) Sodium Chloride (0.9 % Sodium Chloride Flush 3 Ml Syringe) 3 ml IVFLUSH QSHIFT [facility] Vitamin D (Cholecalciferol (Vitamin D3) 25 Mcg Tablet) 25 mcg PO DAILY [facility] Home Medications ?Medication ?Instructions ?Recorded ?Confirmed ?Last Taken ?Type atorvastatin 80 mg tablet 80 mg PO DAILY 04/18/20 02/08/24 02/08/24 History latanoprost 0.005 % eye drops 1 drp ophthalmic (eye) BEDTIME 07/02/22 02/08/24 Unknown History lisinopril 10 mg tablet 10 mg PO DAILY 10/16/22 02/08/24 02/08/24 History nebulizers 12/18/22 01/26/24 02/08/24 09:00 History calcium carbonate 500 mg PO BID 06/24/23 02/08/24 02/08/24 History aspirin 81 mg tablet,delayed 81 mg PO DAILY 10/27/23 02/08/24 02/08/24 History release (Adult Aspirin Regimen) cholecalciferol (vitamin D3) 25 25 mcg PO DAILY 12/22/23 02/08/24 02/08/24 History mcg (1,000 unit) tablet cyanocobalamin (vitamin B-12) 1,000 mcg PO DAILY 12/22/23 02/08/24 02/08/24 History 1,000 mcg tablet albuterol sulfate 2.5 mg/3 mL 2.5 mg inhalation Q6H PRN SOB 02/08/24 02/08/24 Unknown History (0.083 %) solution for nebulization albuterol sulfate 90 mcg/actuation 2 inh inhalation Q4H PRN shortness 02/08/24 02/08/24 Unknown History aerosol inhaler of breath or wheezing [id number]-ciprlpxy-[id number] 1 cap PO TIDAC 02/08/24 02/08/24 02/08/24 History 24,000-76,000-120,000 unit capsule,delayed rel (Creon) metoclopramide HCl 10 mg tablet 10 mg PO Q6H PRN nausea or vomiting 02/08/24 02/08/24 Unknown History omeprazole 20 mg capsule,delayed 20 mg PO BID@0630,1630 02/08/24 02/08/24 02/08/24 History release Physical Exam Vital Signs and Narrative: Vital Signs: Last Vital Signs Temp 97.2 F 02/08/24 14:50 Pulse 112 H 02/08/24 14:50 Resp 33 H 02/08/24 14:50 BP 144/52 H 02/08/24 14:50 Pulse Ox 95 02/08/24 14:50 O2 Del Method Oxymask 02/08/24 14:50 O2 Flow Rate 4 02/08/24 14:50 Oxygen Flow Rate 3 02/08/24 11:19 BMI result Body Mass Index 21.7 Constitutional - Awake and Alert, No apparent distress Eyes - PERRLA, EOMI Cardiovascular - S1S2, RRR, No edema Respiratory - Normal lung expansion, Normal respiratory effort, No respiratory distress on 3L O2, scattered crackles bilaterally no wheezing or rhonchi Gastrointestinal - NT / ND; +BS; No rebound or guarding Extremities - no calf tenderness bilaterally, no swelling Skin - Warm/Dry Neurological - Alert & oriented x3, CN II-XII in tact Psychological - Appropriate affect Results Labs 02/09/24 06:29 02/09/24 06:29 Labs: Laboratory Results - last 24 hr 02/08/24 02/08/24 12:12 12:18 MCV 87.8 MCH 26.5 L MCHC 30.2 L RDW 17.4 H Plt Count 210 MPV 11.9 Immature Gran % (Auto) 0.4 Neut % (Auto) 82.0 H Lymph % (Auto) 6.8 L Mccormick % (Auto) 5.5 Eos % (Auto) 5.1 H Baso % (Auto) 0.2 Lymph # (Auto) 0.6 L Mccormick # (Auto) 0.5 Eos # (Auto) 0.4 Baso # (Auto) 0.0 Abs Immat Gran (auto) 0.03 Absolute Neuts (auto) 6.7 Absolute Nucleated RBC 0.000 Nucleated RBC % (auto) 0.0 PT 12.2 INR 1.0 VBG pH 7.31 L VBG pCO2 70 VBG pO2 40 VBG HCO3 35 H VBG O2 Saturation 59.0 VBG Base Excess 7.1 Anion Gap 13 Estim Creat Clear Calc 38.4 Estimated GFR 51 Random Glucose 105 Calcium 9.7 Total Bilirubin 0.8 AST 15 ALT 10 Alkaline Phosphatase 97 Troponin I High Sens 5.4 B-Natriuretic Peptide 185 H Total Protein 7.2 Albumin 3.7 Blood Type A Positive Antibody Screen NEGATIVE Imaging Radiologist's Impressions: Impressions Chest X-Ray 02/08/24 12:46 IMPRESSION: 1. Unchanged, No acute cardiopulmonary disease. 2. Unchanged status post mid thoracic vertebroplasty. Head CT 02/08/24 13:51 IMPRESSION: Progressive ischemic changes most likely in the right posterior parietal lobe, not acute, but new from 09/11/2022. No fracture or intracranial hemorrhage. Assessment and Plan (1) Closed fracture of left hip: Status: Acute Plan 70-year-old female with history of hypertension, asthma/COPD overlap with chronic hypoxemic hypercapnic respiratory failure on 3-4 L supplemental O2, AAA s/p repair, aortic stenosis, history of CVA, history of DVT no longer on anticoagulation, hyperlipidemia, GERD, CAD admitted for further management of acute fracture of the left hip # acute fracture of the left hip -plan for orthopedic surgery -keep NPO after midnight -echo reviewed from 10/2023 showing normal LV systolic function with EF 65-70% with impaired relaxation filling pattern and moderate aortic stenosis. Pt is class III-IV on revised cardiac risk index. Given urgent/emergent need for surgery would recommend proceeding with appropriate anesthesia precautions -hold asa. Platelets 210, no indication for replacement #Mild acute respitatory acidosis -pt is not experiencing any acute pulmonary issues. No evidence of asthma/copd exacerbation or acute respiratory failure -ph 7.31, pco2 70, bicarb 35 -recommend cpap overnight, repeat vbg am #Asthma/copd overlap with chronic hypoxemic hypercapnic respiratory failure -continue baseline home O2 -no acute exacerbation, continue home inhalers, albuterol p.r.n. # hypertension -hold lisinopril preoperatively, consider resuming as needed postoperatively for uncontrolled blood pressures -blood pressure reasonably controlled at time of admission # CAD -no chest pain, EKG without any acute ischemic changes. Troponin within normal limits -hold aspirin as above. Continue atorvastatin. Not on beta-bella DVT prophylaxis- SCPs preoperatively full code Patient requires inpatient stay at least 2 midnights for management of acute fracture of the left hip requiring expert consultation and surgical intervention with probable placement to short-term rehab pending PT evaluation Quality Stroke Does the patient have a stroke diagnosis?: No VTE Prior VTE?: No VTE Risk Level:: Medical - moderate - high VTE Device Contraindication: N/A - Device Ordered VTE Drug Contraindication: Treatment Not Indicated
[2024-02-08 19:13] VITALS: BP 119/62; PULSE 105; RESP 21; TEMP 36.2; O2SAT 93
[2024-02-08 20:00] VITALS: BP 169/84; PULSE 88; RESP 18; TEMP 36.6; O2SAT 96
[2024-02-08] MEDS: Metoclopramide HCl 10 MG TABLET PO (21:00)
[2024-02-08] MEDS: Acetaminophen 325 MG TABLET 650 MG PO (21:00)
[2024-02-08] MEDS: Calcium Oyster Shell Elemental 500 MG TABLET PO (21:01)
[2024-02-08] MEDS: 0.9 % Sodium Chloride Flush 3 ML SYRINGE IVFLUSH (21:01)
[2024-02-08] MEDS: Melatonin 3 MG TABLET 6 MG PO (21:01)
[2024-02-08 23:51] VITALS: O2SAT 96
[2024-02-09] VITALS (7 sets, daily range): BP systolic 120–140; BP diastolic 58–63; PULSE 77–118; RESP 17–20; TEMP 36.1–37.1; O2SAT 91–96
[2024-02-09] MEDS: Omeprazole 20 MG CAPSULE.DR PO (04:50)
[2024-02-09] MEDS: oxyCODONE HCl Immed Release 5 MG TABLET PO (04:50)
[2024-02-09 06:40] LABS: Venous Blood Gas Refer to POC result
[2024-02-09 06:41] LABS: Basophils Percent Auto 0.2 % (0-2); Hematocrit 36.6 % (37.0-47.0); Imm Gran Abs Auto 0.03 X10*3/uL (0.00-0.03); Imm Gran Pct Auto 0.6 % (0.0-0.4); Lymphocytes Absolute Auto 0.3 X10*3/uL (1.2-4.9); Lymphocytes Percent Auto 6.3 % (20-40); MANUAL DIFF FLAG SCAN; Mean Corpuscular HGB Conc 30.1 g/dl (31.0-35.0); Mean Corpuscular Hemoglobin 26.1 pg (27.0-33.0); Mean Corpuscular Volume 86.9 fL (80.0-98.0); Mean Platelet Volume 12.2 fL (9.4-12.3); Monocytes Absolute Auto 0.1 X10*3/uL (0.1-1.2); Monocytes Percent Auto 2.6 % (2-11); Neutrophils Absolute Auto 4.4 x10*3/uL (2.0-8.3); Neutrophils Percent Auto 90.3 % (45-73); Platelet Count 192 X10*3/uL (160-400); Red Blood Count 4.21 X10*6/uL (4.20-5.50); Red Cell Distribution Width 17.2 % (11.0-16.0); SCAN SMEAR FLAG 1; White Blood Count 4.9 X10*3/uL (4.8-10.8)
[2024-02-09 06:43] LABS: VBG Base Excess 5.5 mmol/L; VBG HCO3 31 mmol/L (22-26); VBG pCO2 52 mmHg; VBG pH 7.38 (7.32-7.43); VBG pO2 74 mmHg
[2024-02-09 06:58] LABS: Anion Gap 12 (12-20); Blood Urea Nitrogen 40 mg/dL (9-16); Calcium 9.5 mg/dL (8.4-10.2); Carbon Dioxide 29 mmol/L (22-29); Chloride 105 mmol/L (96-108); Creatinine Clr Calc Pharmacy 40.8; Estimated Glomerular Filt Rate 55; Glucose Random 149 mg/dL (60-115); Potassium 4.8 mmol/L (3.3-5.1); Sodium 141 mmol/L (135-145)
[2024-02-09] MEDS: Fluticasone/Vilanterol 100/25 BLST.W.DEV 1 PUFF INHALE (07:42)
[2024-02-09 08:27] LABS: SLIDE REVIEW VERIFIED
--- NOTE | 2024-02-09 08:46 | PM.HPOR ---
History of Present Illness History of Present Illness Date of Service: 02/09/24 Chief complaint: R hip fracture Narrative: Bridget Rabago is a 78 year old female [facility] Past Medical History Medical History COPD (chronic obstructive pulmonary disease) Left ulnar fracture COPD (chronic obstructive pulmonary disease) COVID-19 Early satiety Abdominal bloating COPD exacerbation Essential hypertension Precordial chest pain Tachycardia Dyspnea CVA (cerebral vascular accident) Atherosclerotic cardiovascular disease Psoriasis Hydroureter, right Pernicious anemia Raynauds disease Hernia Emphysema lung Emphysema of lung Asthma History of pyloric channel ulcer Glaucoma Mild acid reflux Family History Family History Father No problems noted. Mother No problems noted. Sister No problems noted. Sister No problems noted. Sister No problems noted. Sister No problems noted. Sister Cancer Son No problems noted. Surgical History Surgical History S/P cardiac catheterization H/O carotid endarterectomy (04/01/20) History of AAA (abdominal aortic aneurysm) repair Hx of shoulder surgery Hx of varicose vein stripping Social History Social History Household Members: None Housing: House Do you presently have visiting nurse or other home services: Yes Unable to assess alcohol history related to: Unable to respond Alcohol intake: never Patient Tobacco Use Status: Former Tobacco user Tobacco use type: Cigarette Years Smoked: 65 Smoked in Last 30 Days: No e-Cigarette/Vaping Use: Never Used Second Hand Smoke Exposure: No Use of substances other than those prescribed or required for medical reasons: No Currently Displaying Signs/Symptoms of Drug Intoxication Withdrawal: No Have you been hit, kicked, punched, or otherwise hurt by someone within the past year? If so, by whom?: No Advance Directives: Yes Advance Directives on File: Yes Advance Directives Date on File: 06/11/21 Do you have a plan to hurt others: No Plan Recently lost weight without trying: No Nutrition Risks: No Nutritional Risk Patient : No service: No Current occupational status: retired Cognitive needs: Yes Hearing needs: No Vision needs: Yes Meds Allergies Allergy/AdvReac Type Severity Reaction Status Date / Time No Known Allergies Allergy Verified 02/08/24 11:22 Active Medications: Current Medications Acetaminophen (Acetaminophen 325 Mg Tablet) 650 mg PO Q6H PRN PRN Reason: Pain, Mild (Pain Scale 1-3), fever or headache Last Admin: 02/08/24 21:00 Dose: 650 mg Albuterol Sulfate (Albuterol Sulfate (0.083%) 2.5 Mg/3 Ml Vial.Neb) 2.5 mg INHALE Q6H PRN PRN Reason: Shortness of Breath Albuterol Sulfate (Albuterol Sulfate 90 Mcg 8 Gm Inhaler) 2 puff INHALE Q4H PRN PRN Reason: shortness of breath or wheezing Lipase/Protease/Amylase (Lipase/Prot/Amylase 24/76/120k 1 Cap Capsule.Dr) 1 cap PO TIDAC [facility] Atorvastatin Calcium (Atorvastatin Calcium 80 Mg Tablet) 80 mg PO DAILY [facility] Calcium Carbonate (Calcium Carbonate 750 Mg Tab.Chew) 750 mg PO Q4H PRN PRN Reason: Heartburn Calcium Carbonate (Calcium Oyster Shell Elemental 500 Mg Tablet) 500 mg PO BID [facility] Last Admin: 02/08/24 21:01 Dose: 500 mg Cyanocobalamin (Cyanocobalamin (Vitamin B-12) 1,000 Mcg Tablet) 1,000 mcg PO DAILY [facility] Fluticasone/Vilanterol (Fluticasone/Vilanterol 100/25 Blst.W.Dev) 1 puff INHALE RDAILY [facility] Last Admin: 02/09/24 07:42 Dose: 1 puff Latanoprost (Latanoprost 0.005 % Ophth Phoebe 2.5 Ml Drops) 1 drop EYE-BOTH BEDTIME [facility] Last Admin: 02/08/24 21:05 Dose: Not Given Magnesium Hydroxide (Milk Of Magnesia 30 Ml Oral.Susp) 30 ml PO DAILY PRN PRN Reason: Constipation Melatonin (Melatonin 3 Mg Tablet) 6 mg PO BEDTIME PRN PRN Reason: Insomnia Last Admin: 02/08/24 21:01 Dose: 6 mg Metoclopramide HCl (Metoclopramide Hcl 10 Mg Tablet) 10 mg PO Q6H PRN PRN Reason: nausea or vomiting Last Admin: 02/08/24 21:00 Dose: 10 mg Morphine Sulfate (Morphine Sulfate 4 Mg/Ml Cartridge) 2 mg IVPUSH Q4H PRN; Protocol PRN Reason: Pain, Severe (Pain Scale 7-10) Nitroglycerin (Nitroglycerin 0.4 Mg Tab.Subl) 0.4 mg SUBLINGUAL Q5M PRN PRN Reason: chest pain Omeprazole (Omeprazole 20 Mg Capsule.Dr) 20 mg PO BID@0630,1630 [facility] Last Admin: 02/09/24 04:50 Dose: 20 mg Oxycodone HCl (Oxycodone Hcl Immed Release 5 Mg Tablet) 5 mg PO Q6H PRN PRN Reason: Pain, Moderate(Pain Scale 4-6) Last Admin: 02/09/24 04:50 Dose: 5 mg Sodium Chloride (0.9 % Sodium Chloride Flush 3 Ml Syringe) 3 ml IVFLUSH QSHIFT [facility] Last Admin: 02/08/24 21:01 Dose: 3 ml Vitamin D (Cholecalciferol (Vitamin D3) 25 Mcg Tablet) 25 mcg PO DAILY [facility] Home Medications ?Medication ?Instructions ?Recorded ?Confirmed ?Last Taken ?Type atorvastatin 80 mg tablet 80 mg PO DAILY 04/18/20 02/08/24 02/08/24 History latanoprost 0.005 % eye drops 1 drp ophthalmic (eye) BEDTIME 07/02/22 02/08/24 Unknown History lisinopril 10 mg tablet 10 mg PO DAILY 10/16/22 02/08/24 02/08/24 History nebulizers 12/18/22 01/26/24 02/08/24 09:00 History calcium carbonate 500 mg PO BID 06/24/23 02/08/24 02/08/24 History aspirin 81 mg tablet,delayed 81 mg PO DAILY 10/27/23 02/08/24 02/08/24 History release (Adult Aspirin Regimen) cholecalciferol (vitamin D3) 25 25 mcg PO DAILY 12/22/23 02/08/24 02/08/24 History mcg (1,000 unit) tablet cyanocobalamin (vitamin B-12) 1,000 mcg PO DAILY 12/22/23 02/08/24 02/08/24 History 1,000 mcg tablet albuterol sulfate 2.5 mg/3 mL 2.5 mg inhalation Q6H PRN SOB 02/08/24 02/08/24 Unknown History (0.083 %) solution for nebulization albuterol sulfate 90 mcg/actuation 2 inh inhalation Q4H PRN shortness 02/08/24 02/08/24 Unknown History aerosol inhaler of breath or wheezing [id number] 1 cap PO TIDAC 02/08/24 02/08/24 02/08/24 History 24,000-76,000-120,000 unit capsule,delayed rel (Creon) metoclopramide HCl 10 mg tablet 10 mg PO Q6H PRN nausea or vomiting 02/08/24 02/08/24 Unknown History omeprazole 20 mg capsule,delayed 20 mg PO BID@0630,1630 02/08/24 02/08/24 02/08/24 History release Physical Exam Vital Signs: Vital Signs: Last Vital Signs Temp 98.4 F 02/09/24 06:58 Pulse 82 02/09/24 07:43 Resp 20 02/09/24 07:43 BP 139/61 02/09/24 06:58 Pulse Ox 96 02/09/24 06:58 O2 Del Method Nasal Cannula 02/09/24 06:58 O2 Flow Rate 3 02/09/24 06:58 Oxygen Flow Rate 3 02/08/24 11:19 BMI result Body Mass Index 21.7 Results Labs 02/09/24 06:29 02/09/24 06:29 Labs: Abnormal lab results 02/08/24 02/08/24 02/09/24 Range/Units 12:12 12:18 06:29 Hgb 11.7 L 11.0 L (12.0-16.0) g/dl Hct 36.6 L (37.0-47.0) % MCH 26.5 L 26.1 L (27.0-33.0) pg MCHC 30.2 L 30.1 L (31.0-35.0) g/dl RDW 17.4 H 17.2 H (11.0-16.0) % Immature Gran % (Auto) 0.6 H (0.0-0.4) % Neut % (Auto) 82.0 H 90.3 H (45-73) % Lymph % (Auto) 6.8 L 6.3 L (20-40) % Eos % (Auto) 5.1 H (0-4) % Lymph # (Auto) 0.6 L 0.3 L (1.2-4.9) X10*3/uL VBG pH 7.31 L (7.32-7.43) VBG HCO3 35 H (22-26) mmol/L Carbon Dioxide 32 H (22-29) mmol/L BUN 30 H 40 H (9-16) mg/dL Random Glucose 149 H (60-115) mg/dL B-Natriuretic Peptide 185 H (<100) pg/mL 02/09/24 Range/Units 06:36 Hgb (12.0-16.0) g/dl Hct (37.0-47.0) % MCH (27.0-33.0) pg MCHC (31.0-35.0) g/dl RDW (11.0-16.0) % Immature Gran % (Auto) (0.0-0.4) % Neut % (Auto) (45-73) % Lymph % (Auto) (20-40) % Eos % (Auto) (0-4) % Lymph # (Auto) (1.2-4.9) X10*3/uL VBG pH (7.32-7.43) VBG HCO3 31 H (22-26) mmol/L Carbon Dioxide (22-29) mmol/L BUN (9-16) mg/dL Random Glucose (60-115) mg/dL B-Natriuretic Peptide (<100) pg/mL H & H 02/08/24 02/09/24 Range/Units 12:12 06:29 Hgb 11.7 L 11.0 L (12.0-16.0) g/dl Hct 38.7 36.6 L (37.0-47.0) % Coagulation 02/08/24 Range/Units 12:12 INR 1.0 (0.9-1.1) All other labs normal. Quality Stroke Does the patient have a stroke diagnosis?: No VTE Prior VTE?: No VTE Risk Level:: Medical - moderate - high VTE Device Contraindication: N/A - Device Ordered VTE Drug Contraindication: Treatment Not Indicated Procedures Date of Service Date of Service: 02/09/24
--- NOTE | 2024-02-09 09:10 | MHC.CM.PN ---
Addendum entered by Carla Connell 02/09/24 09:16: HCP is Joaquina/Lena @ [phone]. Original Note: CM met with Patient at bedside and addressed IMM with her, providing Patient with the original and a copy has been placed on the chart. Patient lives alone in a house but her Neighbor/Kendell is her Caregiver and is with her often and sometimes overnight. STR pending PT Eval is the tentative plan and CM has initiated and will follow for dc planning (patient is in agreement with this plan; she does not want to go to [facility] however). PCP/WATER PURIFIER OPERATOR is Pipe Washburn.
[2024-02-09] MEDS: Lipase/Prot/Amylase 24/76/120K 1 CAP CAPSULE.DR PO (09:19)
[2024-02-09] MEDS: Atorvastatin Calcium 80 MG TABLET PO (09:19)
[2024-02-09] MEDS: Morphine Sulfate 4 MG/ML CARTRIDGE 2 MG IVPUSH ×3 (09:19→21:12)
[2024-02-09] MEDS: Calcium Oyster Shell Elemental 500 MG TABLET PO (09:19)
[2024-02-09] MEDS: 0.9 % Sodium Chloride Flush 3 ML SYRINGE IVFLUSH ×2 (09:20→16:57)
[2024-02-09] MEDS: Cyanocobalamin (Vitamin B-12) 1,000 MCG TABLET 1000 MCG PO (09:20)
[2024-02-09] MEDS: Cholecalciferol (Vitamin D3) 25 MCG TABLET PO (09:20)
--- NOTE | 2024-02-09 13:06 | HO.PM.IMPN ---
Subjective Subjective Date of Service: 02/09/24 Interval History: f/u hip fracture has pain with movement Physical Exam Vital Signs: Vital Signs: Last Vital Signs Temp 97.4 F 02/09/24 11:00 Pulse 85 02/09/24 11:00 Resp 20 02/09/24 11:00 BP 120/63 02/09/24 11:00 Pulse Ox 91 L 02/09/24 11:00 O2 Del Method Oxymask 02/09/24 11:00 O2 Flow Rate 3 02/09/24 11:00 Oxygen Flow Rate 3 02/08/24 11:19 BMI result Body Mass Index 21.7 General: AO X 3, no acute distress Resp: CTA bilateral CVS: S1,S2,RRR GI: +BS, NT, no distention Skin: No rash MSK:Left hip pain with movement Neuro: motor grossly intact Psych: appropriate affect Objective Data Active Medications Acetaminophen (Acetaminophen 325 Mg Tablet) 650 mg PO Q6H PRN PRN Reason: Pain, Mild (Pain Scale 1-3), fever or headache Last Admin: 02/08/24 21:00 Dose: 650 mg Documented By: JOSE Albuterol Sulfate (Albuterol Sulfate (0.083%) 2.5 Mg/3 Ml Vial.Neb) 2.5 mg INHALE Q6H PRN PRN Reason: Shortness of Breath Albuterol Sulfate (Albuterol Sulfate 90 Mcg 8 Gm Inhaler) 2 puff INHALE Q4H PRN PRN Reason: shortness of breath or wheezing Lipase/Protease/Amylase (Lipase/Prot/Amylase 24/76/120k 1 Cap Capsule.) 1 cap PO TIDAC [facility] Last Admin: 02/09/24 09:19 Dose: 1 cap Documented By: ALVINO Atorvastatin Calcium (Atorvastatin Calcium 80 Mg Tablet) 80 mg PO DAILY [facility] Last Admin: 02/09/24 09:19 Dose: 80 mg Documented By: ALVINO Calcium Carbonate (Calcium Carbonate 750 Mg Tab.Chew) 750 mg PO Q4H PRN PRN Reason: Heartburn Calcium Carbonate (Calcium Oyster Shell Elemental 500 Mg Tablet) 500 mg PO BID [facility] Last Admin: 02/09/24 09:19 Dose: 500 mg Documented By: ALVINO Cyanocobalamin (Cyanocobalamin (Vitamin B-12) 1,000 Mcg Tablet) 1,000 mcg PO DAILY [facility] Last Admin: 02/09/24 09:20 Dose: 1,000 mcg Documented By: ALVINO Fluticasone/Vilanterol (Fluticasone/Vilanterol 100/25 Blst.W.Dev) 1 puff INHALE RDAILY [facility] Last Admin: 02/09/24 07:42 Dose: 1 puff Documented By: TANESHA Latanoprost (Latanoprost 0.005 % Ophth Phoebe 2.5 Ml Drops) 1 drop EYE-BOTH BEDTIME [facility] Last Admin: 02/08/24 21:05 Dose: Not Given Documented By: JOSE Non-Admin Reason: Med Not Available Magnesium Hydroxide (Milk Of Magnesia 30 Ml Oral.Susp) 30 ml PO DAILY PRN PRN Reason: Constipation Melatonin (Melatonin 3 Mg Tablet) 6 mg PO BEDTIME PRN PRN Reason: Insomnia Last Admin: 02/08/24 21:01 Dose: 6 mg Documented By: JOSE Metoclopramide HCl (Metoclopramide Hcl 10 Mg Tablet) 10 mg PO Q6H PRN PRN Reason: nausea or vomiting Last Admin: 02/08/24 21:00 Dose: 10 mg Documented By: JOSE Morphine Sulfate (Morphine Sulfate 4 Mg/Ml Cartridge) 2 mg IVPUSH Q4H PRN; Protocol PRN Reason: Pain, Severe (Pain Scale 7-10) Last Admin: 02/09/24 09:19 Dose: 2 mg Documented By: ALVINO Nitroglycerin (Nitroglycerin 0.4 Mg Tab.Subl) 0.4 mg SUBLINGUAL Q5M PRN PRN Reason: chest pain Omeprazole (Omeprazole 20 Mg Capsule.Dr) 20 mg PO BID@0630,1630 [facility] Last Admin: 02/09/24 04:50 Dose: 20 mg Documented By: JOSE Oxycodone HCl (Oxycodone Hcl Immed Release 5 Mg Tablet) 5 mg PO Q6H PRN PRN Reason: Pain, Moderate(Pain Scale 4-6) Last Admin: 02/09/24 04:50 Dose: 5 mg Documented By: JOSE Sodium Chloride (0.9 % Sodium Chloride Flush 3 Ml Syringe) 3 ml IVFLUSH QSHIFT [facility] Last Admin: 02/09/24 09:20 Dose: 3 ml Documented By: ALVINO Vitamin D (Cholecalciferol (Vitamin D3) 25 Mcg Tablet) 25 mcg PO DAILY [facility] Last Admin: 02/09/24 09:20 Dose: 25 mcg Documented By: ALVINO Labs 02/09/24 06:29 02/09/24 06:29 Labs: Laboratory Results - last 24 hr 02/08/24 02/09/24 02/09/24 12:12 06:29 06:36 MCV 86.9 MCH 26.1 L MCHC 30.1 L RDW 17.2 H Plt Count 192 MPV 12.2 Immature Gran % (Auto) 0.6 H Neut % (Auto) 90.3 H Lymph % (Auto) 6.3 L [place] % (Auto) 2.6 Eos % (Auto) 0.0 Baso % (Auto) 0.2 Lymph # (Auto) 0.3 L [place] # (Auto) 0.1 Eos # (Auto) 0.0 Baso # (Auto) 0.0 Abs Immat Gran (auto) 0.03 Absolute Neuts (auto) 4.4 Absolute Nucleated RBC 0.000 Nucleated RBC % (auto) 0.0 Smear Tech's Comments VERIFIED VBG pH 7.38 VBG pCO2 52 VBG pO2 74 VBG HCO3 31 H VBG O2 Saturation 95.0 VBG Base Excess 5.5 Anion Gap 12 Estim Creat Clear Calc 40.8 Estimated GFR 55 Random Glucose 149 H Calcium 9.5 Antibody Screen NEGATIVE Assessment and Plan (1) Respiratory acidosis: Status: Acute (2) Acute exacerbation of chronic obstructive pulmonary disease (COPD): Status: Acute Plan 70-year-old female with history of hypertension, asthma/COPD overlap with chronic hypoxemic hypercapnic respiratory failure on 3-4 L supplemental O2, AAA s/p repair, aortic stenosis, history of CVA, history of DVT no longer on anticoagulation, hyperlipidemia, GERD, CAD admitted for further management of acute fracture of the left hip # acute fracture of the left hip -plan for orthopedic surgery -keep NPO after midnight -echo reviewed from 10/2023 showing normal LV systolic function with EF 65-70% with impaired relaxation filling pattern and moderate aortic stenosis. Pt is class III-IV on revised cardiac risk index. Given urgent/emergent need for surgery would recommend proceeding with appropriate anesthesia precautions -hold asa. Platelets 210, no indication for replacement #Mild acute respitatory acidosis -pt is not experiencing any acute pulmonary issues. No evidence of asthma/copd exacerbation or acute respiratory failure -ph 7.31, pco2 70, bicarb 35-->7.38/52/31 now -recommend cpap overnight #Asthma/copd overlap with chronic hypoxemic hypercapnic respiratory failure -continue baseline home O2 -no acute exacerbation, continue home inhalers, albuterol p.r.n. # hypertension -hold lisinopril preoperatively, consider resuming as needed postoperatively for uncontrolled blood pressures -blood pressure reasonably controlled at time of admission # CAD -no chest pain, EKG without any acute ischemic changes. Troponin within normal limits -hold aspirin as above. Continue atorvastatin. Not on beta-bella DVT prophylaxis- SCPs preoperatively, SC heparin, hold before surgery full code Need for inpatient: Hip fractuer that needs surgical repair Quality Stroke Does the patient have a stroke diagnosis?: No VTE Prior VTE?: No VTE Risk Level:: Medical - moderate - high VTE Device Contraindication: N/A - Device Ordered VTE Drug Contraindication: Treatment Not Indicated
[2024-02-09] MEDS: Metoclopramide HCl 10 MG TABLET PO (15:03)
[2024-02-09] MEDS: Heparin Sodium,Porcine 5,000 UNIT/ML VIAL 5000 UNIT SUBCUT (16:53)
[2024-02-09] MEDS: Latanoprost 0.005 % Ophth Sol 2.5 ML DROPS 1 DROP EYE-BOTH (21:26)
[2024-02-10] VITALS (14 sets, daily range): BP systolic 98–172; BP diastolic 43–75; PULSE 75–108; RESP 12–24; TEMP 36.2–37.7; O2SAT 89–94
[2024-02-10] MEDS: Morphine Sulfate 4 MG/ML CARTRIDGE 2 MG IVPUSH ×5 (01:35→18:33)
[2024-02-10] MEDS: Heparin Sodium,Porcine 5,000 UNIT/ML VIAL 5000 UNIT SUBCUT (01:36)
[2024-02-10] MEDS: Fluticasone/Vilanterol 100/25 BLST.W.DEV 1 PUFF INHALE (08:41)
--- NOTE | 2024-02-10 08:53 | P.PNIM_ITS ---
Subjective Subjective Date of Service: 02/11/24 Interval History: f/u hip fracture has pain with movement episode of chocking with meal yesterday, she and state that this happens all the the time. CXR showed no PNA Physical Exam 2 Vital Signs: Vital Signs: Last Vital Signs Temp 97.3 F 02/10/24 07:49 Pulse 91 02/10/24 08:43 Resp 14 02/10/24 08:46 BP 172/72 H 02/10/24 07:49 Pulse Ox 91 L 02/10/24 07:49 O2 Del Method Nasal Cannula 02/10/24 07:49 O2 Flow Rate 3 02/10/24 07:49 Oxygen Flow Rate 3 02/08/24 11:19 BMI result Body Mass Index 21.7 General: AO X 3, no acute distress Resp: CTA bilateral CVS: S1,S2,RRR GI: +BS, NT, no distention Skin: No rash MSK:Left hip pain with movement Neuro: motor grossly intact Psych: appropriate affect Objective Data Active Medications Acetaminophen (Acetaminophen 325 Mg Tablet) 650 mg PO Q6H PRN PRN Reason: Pain, Mild (Pain Scale 1-3), fever or headache Last Admin: 02/08/24 21:00 Dose: 650 mg Documented By: JOSE Albuterol Sulfate (Albuterol Sulfate (0.083%) 2.5 Mg/3 Ml Vial.Neb) 2.5 mg INHALE Q6H PRN PRN Reason: Shortness of Breath Albuterol Sulfate (Albuterol Sulfate 90 Mcg 8 Gm Inhaler) 2 puff INHALE Q4H PRN PRN Reason: shortness of breath or wheezing Lipase/Protease/Amylase (Lipase/Prot/Amylase 24/76/120k 1 Cap Capsule.Dr) 1 cap PO TIDAC [facility] Last Admin: 02/10/24 07:56 Dose: Not Given Documented By: NICK Non-Admin Reason: NPO Atorvastatin Calcium (Atorvastatin Calcium 80 Mg Tablet) 80 mg PO DAILY [facility] Last Admin: 02/10/24 07:57 Dose: Not Given Documented By: NICK Non-Admin Reason: NPO Calcium Carbonate (Calcium Carbonate 750 Mg Tab.Chew) 750 mg PO Q4H PRN PRN Reason: Heartburn Calcium Carbonate (Calcium Oyster Shell Elemental 500 Mg Tablet) 500 mg PO BID [facility] Last Admin: 02/10/24 07:57 Dose: Not Given Documented By: NICK Non-Admin Reason: NPO Cyanocobalamin (Cyanocobalamin (Vitamin B-12) 1,000 Mcg Tablet) 1,000 mcg PO DAILY [facility] Last Admin: 02/10/24 07:57 Dose: Not Given Documented By: NICK Non-Admin Reason: NPO Fluticasone/Vilanterol (Fluticasone/Vilanterol 100/25 Blst.W.Dev) 1 puff INHALE RDAILY [facility] Last Admin: 02/10/24 08:41 Dose: 1 puff Documented By: ASHA Heparin Sodium (Porcine) (Heparin Sodium,Porcine 5,000 Unit/Ml Vial) 5,000 unit SUBCUT Q12H [facility] Last Admin: 02/10/24 01:36 Dose: 5,000 unit Documented By: XENIA Lactated Ringer's (Lr) 1,000 mls @ 80 mls/hr IVCONT .[id number] [facility] Latanoprost (Latanoprost 0.005 % Ophth Phoebe 2.5 Ml Drops) 1 drop EYE-BOTH BEDTIME [facility] Last Admin: 02/09/24 21:26 Dose: 1 drop Documented By: SHANTELLE Magnesium Hydroxide (Milk Of Magnesia 30 Ml Oral.Susp) 30 ml PO DAILY PRN PRN Reason: Constipation Melatonin (Melatonin 3 Mg Tablet) 6 mg PO BEDTIME PRN PRN Reason: Insomnia Last Admin: 02/08/24 21:01 Dose: 6 mg Documented By: JOSE Metoclopramide HCl (Metoclopramide Hcl 10 Mg Tablet) 10 mg PO Q6H PRN PRN Reason: nausea or vomiting Last Admin: 02/09/24 15:03 Dose: 10 mg Documented By: ALVINO Morphine Sulfate (Morphine Sulfate 4 Mg/Ml Cartridge) 2 mg IVPUSH Q4H PRN; Protocol PRN Reason: Pain, Severe (Pain Scale 7-10) Last Admin: 02/10/24 05:26 Dose: 2 mg Documented By: XENIA Nitroglycerin (Nitroglycerin 0.4 Mg Tab.Subl) 0.4 mg SUBLINGUAL Q5M PRN PRN Reason: chest pain Omeprazole (Omeprazole 20 Mg Capsule.) 20 mg PO BID@0630,1630 [facility] Last Admin: 02/10/24 05:22 Dose: Not Given Documented By: XENIA Non-Admin Reason: strict NPO Oxycodone HCl (Oxycodone Hcl Immed Release 5 Mg Tablet) 5 mg PO Q6H PRN PRN Reason: Pain, Moderate(Pain Scale 4-6) Last Admin: 02/09/24 04:50 Dose: 5 mg Documented By: JOSE Sodium Chloride (0.9 % Sodium Chloride Flush 3 Ml Syringe) 3 ml IVFLUSH QSHIFT [facility] Last Admin: 02/09/24 22:29 Dose: Not Given Documented By: XENIA Non-Admin Reason: Patient Asleep Vitamin D (Cholecalciferol (Vitamin D3) 25 Mcg Tablet) 25 mcg PO DAILY [facility] Last Admin: 02/10/24 07:57 Dose: Not Given Documented By: NICK Non-Admin Reason: NPO Labs 02/11/24 07:46 02/10/24 09:28 Assessment and Plan (1) Respiratory acidosis: Status: Acute (2) Acute exacerbation of chronic obstructive pulmonary disease (COPD): Status: Acute Plan 70-year-old female with history of hypertension, asthma/COPD overlap with chronic hypoxemic hypercapnic respiratory failure on 3-4 L supplemental O2, AAA s/p repair, aortic stenosis, history of CVA, history of DVT no longer on anticoagulation, hyperlipidemia, GERD, CAD admitted for further management of acute fracture of the left hip # acute fracture of the left hip -for operative repair -last echo from 10/2023 showing normal LV systolic function with EF 65-70% with impaired relaxation filling pattern and moderate aortic stenosis. Pt is class III-IV on revised cardiac risk index. Given urgent/emergent need for surgery would recommend proceeding with appropriate anesthesia precautions -hold asa. Platelets 210, #Asthma/copd overlap with chronic hypoxemic hypercapnic respiratory failure -continue baseline home O2 -no acute exacerbation, continue home inhalers, albuterol p.r.n. # hypertension -Med on hold d/t NPO status with significant dysphagia and awaiting speech eval # CAD -no chest pain, EKG without any acute ischemic changes. Troponin within normal limits -hold aspirin as above. Continue atorvastatin. Not on beta-bella DVT prophylaxis- SCPs preoperatively, SC heparin, hold before surgery full code Need for inpatient: Hip fracture that needs surgical repair Quality Stroke Does the patient have a stroke diagnosis?: No VTE Prior VTE?: No VTE Risk Level:: Medical - moderate - high VTE Device Contraindication: N/A - Device Ordered VTE Drug Contraindication: Treatment Not Indicated
--- NOTE | 2024-02-10 08:53 | MHC.SLORD ---
Addendum entered and electronically signed by Shasta Tinoco MA, CCC-NURSE PRACTITIONER PER DIEM 02/10/24 11:36: Per Dr. Be, procedure scheduled for after 3pm. NURSE PRACTITIONER PER DIEM consult likely deferred for tomorrow a.m. Original Note: Speech Language Pathology Order Status: Order received for bedside dysphagia exam and deferred at this time. Per RN, patient is NPO for orthopedic surgery, therefore no PO trials were given. RN to notify NURSE PRACTITIONER PER DIEM via [place] Message once patient has returned from surgery and is ready for swallow eval.
[2024-02-10 09:10] LABS: Glucose, Whole Blood 87 mg/dL (60-115)
[2024-02-10] MEDS: Lactated Ringers 1,000 ML 80 ML IVCONT ×2 (09:16→23:16)
[2024-02-10] MEDS: 0.9 % Sodium Chloride Flush 3 ML SYRINGE IVFLUSH (09:24)
[2024-02-10 09:34] LABS: Hematocrit 38.5 % (37.0-47.0); Hemoglobin 11.8 g/dl (12.0-16.0); Mean Corpuscular HGB Conc 30.6 g/dl (31.0-35.0); Mean Corpuscular Hemoglobin 26.9 pg (27.0-33.0); Mean Corpuscular Volume 87.9 fL (80.0-98.0); Mean Platelet Volume 11.1 fL (9.4-12.3); Platelet Count 202 X10*3/uL (160-400); Red Blood Count 4.38 X10*6/uL (4.20-5.50); Red Cell Distribution Width 17.6 % (11.0-16.0); White Blood Count 9.1 X10*3/uL (4.8-10.8)
[2024-02-10 09:49] LABS: Anion Gap 11 (12-20); Blood Urea Nitrogen 43 mg/dL (9-16); Carbon Dioxide 35 mmol/L (22-29); Chloride 103 mmol/L (96-108); Creatinine Clr Calc Pharmacy 48.8; Estimated Glomerular Filt Rate > 60; Glucose Random 96 mg/dL (60-115); Potassium 4.1 mmol/L (3.3-5.1); Sodium 145 mmol/L (135-145)
[2024-02-10] MEDS: Albuterol Sulfate (0.083%) 2.5 MG/3 ML VIAL.NEB INHALE (11:44)
--- NOTE | 2024-02-10 15:25 | P.CONAN_ITS ---
HPI - Anesthesia Eval Consult details Narrative: elderly with COPD, chronic aspirator, hypoxic and hypercapnic resp failure, PMFSH Active Problems Active Problems: All Active Problems Respiratory acidosis (Acute) Acute exacerbation of chronic obstructive pulmonary disease (COPD) (Acute) Closed fracture of left hip (Acute) Left knee pain (Acute) Left hip pain (Acute) Schaefer cyst (Acute) Leg pain, right (Acute) Knee pain, right (Acute) COPD (chronic obstructive pulmonary disease) (Acute) Multi-vessel coronary artery stenosis (Acute) Colonoscopy refused (Acute) Osteoporosis (Acute) Chronic pain syndrome (Acute) Spondylosis of lumbar spine (Acute) Lumbar radiculitis (Acute) Varicose veins of both lower extremities (Acute) Aortic stenosis (Acute) Chronic idiopathic constipation (Acute) Insomnia (Acute) Anxiety (Acute) Delayed gastric emptying (Acute) Bilateral bunions (Acute) Lumbar degenerative disc disease (Acute) Stroke due to stenosis of right carotid artery (Acute) Abdominal aortic aneurysm (AAA) (Acute) Weight loss, abnormal (Acute) DVT (deep venous thrombosis) (Acute) Hypertension (Acute) Hyperlipidemia (Acute) GERD (gastroesophageal reflux disease) (Acute) Abnormal myocardial perfusion study (Acute) Glaucoma (Acute) Emphysema of lung (Acute) Asthma (Acute) Past Medical History Medical History COPD (chronic obstructive pulmonary disease) Left ulnar fracture COPD (chronic obstructive pulmonary disease) COVID-19 Early satiety Abdominal bloating COPD exacerbation Essential hypertension Precordial chest pain Tachycardia Dyspnea CVA (cerebral vascular accident) Atherosclerotic cardiovascular disease Psoriasis Hydroureter, right Pernicious anemia Raynauds disease Hernia Emphysema lung Emphysema of lung Asthma History of pyloric channel ulcer Glaucoma Mild acid reflux Family History Family History Father No problems noted. Mother No problems noted. Sister No problems noted. Sister No problems noted. Sister No problems noted. Sister No problems noted. Sister Cancer Son No problems noted. Family history of problems with anesthesia: No Surgical History Surgical History S/P cardiac catheterization H/O carotid endarterectomy (04/01/20) History of AAA (abdominal aortic aneurysm) repair Hx of shoulder surgery Hx of varicose vein stripping History of Problems with Anesthesia: No Social History Social History Household Members: None Housing: House Do you presently have visiting nurse or other home services: Yes Unable to assess alcohol history related to: Unable to respond Alcohol intake: never Patient Tobacco Use Status: Former Tobacco user Tobacco use type: Cigarette Years Smoked: 65 Smoked in Last 30 Days: No e-Cigarette/Vaping Use: Never Used Second Hand Smoke Exposure: No Use of substances other than those prescribed or required for medical reasons: No Currently Displaying Signs/Symptoms of Drug Intoxication Withdrawal: No Have you been hit, kicked, punched, or otherwise hurt by someone within the past year? If so, by whom?: No Are you DNR?: No Advance Directives: Yes Advance Directives on File: Yes Advance Directives Date on File: 06/11/21 Do you have a plan to hurt others: No Plan Recently lost weight without trying: No Nutrition Risks: No Nutritional Risk Patient : No service: No Current occupational status: retired Cognitive needs: Yes Hearing needs: No Vision needs: Yes Meds Allergies Allergy/AdvReac Type Severity Reaction Status Date / Time No Known Allergies Allergy Verified 02/08/24 11:22 Active Medications: Current Medications Acetaminophen (Acetaminophen 325 Mg Tablet) 650 mg PO Q6H PRN PRN Reason: Pain, Mild (Pain Scale 1-3), fever or headache Last Admin: 02/08/24 21:00 Dose: 650 mg Albuterol Sulfate (Albuterol Sulfate (0.083%) 2.5 Mg/3 Ml Vial.Neb) 2.5 mg INHALE Q6H PRN PRN Reason: Shortness of Breath Last Admin: 02/10/24 11:44 Dose: 2.5 mg Albuterol Sulfate (Albuterol Sulfate 90 Mcg 8 Gm Inhaler) 2 puff INHALE Q4H PRN PRN Reason: shortness of breath or wheezing Lipase/Protease/Amylase (Lipase/Prot/Amylase 24/76/120k 1 Cap Capsule.) 1 cap PO TIDAC [facility] Last Admin: 02/10/24 11:17 Dose: Not Given Atorvastatin Calcium (Atorvastatin Calcium 80 Mg Tablet) 80 mg PO DAILY [facility] Last Admin: 02/10/24 07:57 Dose: Not Given Calcium Carbonate (Calcium Carbonate 750 Mg Tab.Chew) 750 mg PO Q4H PRN PRN Reason: Heartburn Calcium Carbonate (Calcium Oyster Shell Elemental 500 Mg Tablet) 500 mg PO BID [facility] Last Admin: 02/10/24 07:57 Dose: Not Given Cyanocobalamin (Cyanocobalamin (Vitamin B-12) 1,000 Mcg Tablet) 1,000 mcg PO DAILY [facility] Last Admin: 02/10/24 07:57 Dose: Not Given Fluticasone/Vilanterol (Fluticasone/Vilanterol 100/25 Blst.W.Dev) 1 puff INHALE RDAILY [facility] Last Admin: 02/10/24 08:41 Dose: 1 puff Heparin Sodium (Porcine) (Heparin Sodium,Porcine 5,000 Unit/Ml Vial) 5,000 unit SUBCUT Q12H [facility] Last Admin: 02/10/24 15:03 Dose: Not Given Lactated Ringer's (Lr) 1,000 mls @ 80 mls/hr IVCONT .[id number] [facility] Last Admin: 02/10/24 09:16 Dose: 80 mls/hr Latanoprost (Latanoprost 0.005 % Ophth Phoebe 2.5 Ml Drops) 1 drop EYE-BOTH BEDTIME [facility] Last Admin: 02/09/24 21:26 Dose: 1 drop Magnesium Hydroxide (Milk Of Magnesia 30 Ml Oral.Susp) 30 ml PO DAILY PRN PRN Reason: Constipation Melatonin (Melatonin 3 Mg Tablet) 6 mg PO BEDTIME PRN PRN Reason: Insomnia Last Admin: 02/08/24 21:01 Dose: 6 mg Metoclopramide HCl (Metoclopramide Hcl 10 Mg Tablet) 10 mg PO Q6H PRN PRN Reason: nausea or vomiting Last Admin: 02/09/24 15:03 Dose: 10 mg Morphine Sulfate (Morphine Sulfate 4 Mg/Ml Cartridge) 2 mg IVPUSH Q4H PRN; Pro tocol PRN Reason: Pain, Severe (Pain Scale 7-10) Last Admin: 02/10/24 13:58 Dose: 2 mg Nitroglycerin (Nitroglycerin 0.4 Mg Tab.Subl) 0.4 mg SUBLINGUAL Q5M PRN PRN Reason: chest pain Omeprazole (Omeprazole 20 Mg Capsule.Dr) 20 mg PO BID@0630,1630 [facility] Last Admin: 02/10/24 05:22 Dose: Not Given Oxycodone HCl (Oxycodone Hcl Immed Release 5 Mg Tablet) 5 mg PO Q6H PRN PRN Reason: Pain, Moderate(Pain Scale 4-6) Last Admin: 02/09/24 04:50 Dose: 5 mg Sodium Chloride (0.9 % Sodium Chloride Flush 3 Ml Syringe) 3 ml IVFLUSH QSHIFT [facility] Last Admin: 02/10/24 09:24 Dose: 3 ml Vitamin D (Cholecalciferol (Vitamin D3) 25 Mcg Tablet) 25 mcg PO DAILY [facility] Last Admin: 02/10/24 07:57 Dose: Not Given Home Medications ?Medication ?Instructions ?Recorded ?Confirmed ?Last Taken ?Type atorvastatin 80 mg tablet 80 mg PO DAILY 04/18/20 02/08/24 02/08/24 History latanoprost 0.005 % eye drops 1 drp ophthalmic (eye) BEDTIME 07/02/22 02/08/24 Unknown History lisinopril 10 mg tablet 10 mg PO DAILY 10/16/22 02/08/24 02/08/24 History nebulizers 12/18/22 01/26/24 02/08/24 09:00 History calcium carbonate 500 mg PO BID 06/24/23 02/08/24 02/08/24 History aspirin 81 mg tablet,delayed 81 mg PO DAILY 10/27/23 02/08/24 02/08/24 History release (Adult Aspirin Regimen) cholecalciferol (vitamin D3) 25 25 mcg PO DAILY 12/22/23 02/08/24 02/08/24 History mcg (1,000 unit) tablet cyanocobalamin (vitamin B-12) 1,000 mcg PO DAILY 12/22/23 02/08/24 02/08/24 History 1,000 mcg tablet albuterol sulfate 2.5 mg/3 mL 2.5 mg inhalation Q6H PRN SOB 02/08/24 02/08/24 Unknown History (0.083 %) solution for nebulization albuterol sulfate 90 mcg/actuation 2 inh inhalation Q4H PRN shortness 02/08/24 02/08/24 Unknown History aerosol inhaler of breath or wheezing [id number] 1 cap PO TIDAC 02/08/24 02/08/24 02/08/24 History 24,000-76,000-120,000 unit capsule,delayed rel (Creon) metoclopramide HCl 10 mg tablet 10 mg PO Q6H PRN nausea or vomiting 02/08/24 02/08/24 Unknown History omeprazole 20 mg capsule,delayed 20 mg PO BID@0630,1630 02/08/24 02/08/24 02/08/24 History release Exam Height,Weight and Vital Signs: Height 5 ft 4 in Weight 57.3 kg Last Vital Signs Temp 97.6 F 02/10/24 14:54 Pulse 104 H 02/10/24 14:54 Resp 16 02/10/24 14:54 BP 131/75 02/10/24 14:54 Pulse Ox 90 L 02/10/24 14:54 O2 Del Method Room Air 02/10/24 14:54 O2 Flow Rate 3 02/10/24 07:49 Oxygen Flow Rate 3 02/08/24 11:19 Pertinent Lab Results Pertinent Lab Results: Laboratory Tests 02/08/24 02/08/24 02/09/24 12:12 12:18 06:29 WBC 8.2 4.9 RBC 4.41 4.21 Hgb 11.7 L 11.0 L Hct 38.7 36.6 L MCV 87.8 86.9 MCH 26.5 L 26.1 L MCHC 30.2 L 30.1 L RDW 17.4 H 17.2 H Plt Count 210 192 MPV 11.9 12.2 Immature Gran % (Auto) 0.4 0.6 H Neut % (Auto) 82.0 H 90.3 H Lymph % (Auto) 6.8 L 6.3 L Powell % (Auto) 5.5 2.6 Eos % (Auto) 5.1 H 0.0 Baso % (Auto) 0.2 0.2 Lymph # (Auto) 0.6 L 0.3 L Powell # (Auto) 0.5 0.1 Eos # (Auto) 0.4 0.0 Baso # (Auto) 0.0 0.0 Abs Immat Gran (auto) 0.03 0.03 Absolute Neuts (auto) 6.7 4.4 Absolute Nucleated RBC 0.000 0.000 Nucleated RBC % (auto) 0.0 0.0 Smear Tech's Comments VERIFIED PT 12.2 INR 1.0 VBG pH 7.31 L VBG pCO2 70 VBG pO2 40 VBG HCO3 35 H VBG O2 Saturation 59.0 VBG Base Excess 7.1 Sodium 144 141 Potassium 4.3 4.8 Chloride 103 105 Carbon Dioxide 32 H 29 Anion Gap 13 12 BUN 30 H 40 H Creatinine 1.04 0.98 Estim Creat Clear Calc 38.4 40.8 Estimated GFR 51 55 POC Glucose Random Glucose 105 149 H Calcium 9.7 9.5 Total Bilirubin 0.8 AST 15 ALT 10 Alkaline Phosphatase 97 Troponin I High Sens 5.4 B-Natriuretic Peptide 185 H Total Protein 7.2 Albumin 3.7 Blood Type A Positive Antibody Screen NEGATIVE 02/09/24 02/10/24 02/10/24 06:36 09:06 09:28 WBC 9.1 RBC 4.38 Hgb 11.8 L Hct 38.5 MCV 87.9 MCH 26.9 L MCHC 30.6 L RDW 17.6 H Plt Count 202 MPV 11.1 Immature Gran % (Auto) Neut % (Auto) Lymph % (Auto) Powell % (Auto) Eos % (Auto) Baso % (Auto) Lymph # (Auto) Powell # (Auto) Eos # (Auto) Baso # (Auto) Abs Immat Gran (auto) Absolute Neuts (auto) Absolute Nucleated RBC 0.000 Nucleated RBC % (auto) 0.0 Smear Tech's Comments PT INR VBG pH 7.38 VBG pCO2 52 VBG pO2 74 VBG HCO3 31 H VBG O2 Saturation 95.0 VBG Base Excess 5.5 Sodium 145 Potassium 4.1 Chloride 103 Carbon Dioxide 35 H Anion Gap 11 L BUN 43 H Creatinine 0.82 Estim Creat Clear Calc 48.8 Estimated GFR > 60 POC Glucose 87 Random Glucose 96 Calcium 9.0 Total Bilirubin AST ALT Alkaline Phosphatase Troponin I High Sens B-Natriuretic Peptide Total Protein Albumin Blood Type Antibody Screen Airway Mallampati Class: II TM Dist: <=3cm Neck ROM: Poor Heart: rrr Lungs: cta Assessment and Plan Assessment Anesthesia Assessment: Anesthesia Plan Discussed Final Anesthetic Review Family History of Problems with Anesthesia: No History of Problems with Anesthesia: No NPO: Yes ASA Class: IV and Emergency Final Preanesthetic Review: No Changes in Pt Med Stat, Meds/Allgs Chart Reviewed, Consent Obtained/Reviewed and Anes Risks/Benef Reviewed Patient Risk: High Procedure Risk: High Anesthetic Plan Anesthetic Plan: GA (high chance of staying intubated post- op with transfer to ICU, NEED TO DISCUSS WITH FAMILY AND PATIENT WHO IS VERY SEDATED. AWAITING INFO REG FAMILY ) Disposition: Extended PACU
--- NOTE | 2024-02-10 17:01 | P.BOP_ITS ---
Brief Operative Note Date of Service: 02/10/24 Pre-op diagnosis: left femoral neck fracture Post-op diagnosis: same Procedure: left hip pepper Implants: [id number] [place] #[phone] with + bipolar Surgeon: Cj Armijo MD Anesthesia: local and spinal Was an Pig Machine Crane Operator used for this Procedure?: No Pig Machine Crane Operator: Nadira Delacruz Estimated blood loss (mL): 200 IV fluids (mL): 600 Pathology: other Condition: stable Disposition: PACU Assessment and Plan (No Qualifiers) Assessment and Plan (1) Closed fracture of left hip: Status: Acute Plan: H/o DVT Lovenox vs Eliquis
[2024-02-10] MEDS: Latanoprost 0.005 % Ophth Sol 2.5 ML DROPS 1 DROP EYE-BOTH (20:50)
--- NOTE | 2024-02-10 21:42 | PC.NURSE ---
2 units of blood ordered, pt's H&H is stable - 11.8/38.5, Dr. Mcadams said no need to give.
[2024-02-10] MEDS: oxyCODONE HCl Immed Release 5 MG TABLET PO (23:41)
[2024-02-11] VITALS (8 sets, daily range): BP systolic 137–167; BP diastolic 65–81; PULSE 86–110; RESP 15–17; TEMP 36.7–36.9; O2SAT 93–97
[2024-02-11] MEDS: Heparin Sodium,Porcine 5,000 UNIT/ML VIAL 5000 UNIT SUBCUT (00:58)
[2024-02-11] MEDS: Morphine Sulfate 4 MG/ML CARTRIDGE 2 MG IVPUSH ×3 (00:58→16:39)
[2024-02-11] MEDS: Albuterol Sulfate (0.083%) 2.5 MG/3 ML VIAL.NEB INHALE (04:28)
[2024-02-11] MEDS: oxyCODONE HCl Immed Release 5 MG TABLET PO (06:21)
[2024-02-11] MEDS: Enoxaparin Sodium 40 MG/0.4 ML SYRINGE SUBCUT (07:41)
[2024-02-11 07:56] LABS: Hematocrit 34.2 % (37.0-47.0); Hemoglobin 10.5 g/dl (12.0-16.0)
[2024-02-11] MEDS: Fluticasone/Vilanterol 100/25 BLST.W.DEV 1 PUFF INHALE (08:02)
[2024-02-11 08:12] LABS: Glucose, Whole Blood 98 mg/dL (60-115)
--- NOTE | 2024-02-11 08:16 | PM.PNORT ---
Subjective Subjective Date of Service: 02/11/24 Interval history: POD1 s/p left hip pepper Patient is resting in bed - complains of pain No overnight events Pain is not managed Patient is not talkative and only nods head to questions Physical Exam Vital Signs: Vital Signs: Last Vital Signs Temp 98.0 F 02/11/24 07:52 Pulse 91 02/11/24 08:04 Resp 15 02/11/24 08:04 BP 137/65 02/11/24 07:52 Pulse Ox 95 02/11/24 07:52 O2 Del Method Oxymask 02/11/24 07:52 O2 Flow Rate 5.0 02/11/24 07:52 Oxygen Flow Rate 3 02/08/24 11:19 BMI result Body Mass Index 21.7 Const: General: cooperative, healthy appearing and no acute distress Resp: Effort & Inspection: normal respiratory effort and able to speak in complete sentences Cardio: Rate: regular rate Peripheral pulses: Peripheral pulses 2+ throughout GI: Palpation (GI): Soft to palpation Skin: Lesions: no lesions Rashes: no rashes Extrem: Other: left hip pepper dressing is c/d/i. Able to dorsi/plantar flex. Calf is supple and nontender. Sensation intact. Pedal pulse intact. Procedures Date of Service Date of Service: 02/11/24 Progress Note: A&P Assessment and plan (1) Status post hip hemiarthroplasty: Status: Acute Plan Continue pain mgmnt Begin Lovenox for dvt ppx begin PT/OT for left hip pepper - posterior precautions Dispo planning-Pending PT eval, pain mgmnt Time Spent With Patient Time: Total time managing care of this patient today ____ minutes. Quality Stroke Does the patient have a stroke diagnosis?: No VTE Prior VTE?: No VTE Risk Level:: Medical - moderate - high VTE Device Contraindication: N/A - Device Ordered VTE Drug Contraindication: Treatment Not Indicated
--- NOTE | 2024-02-11 10:32 | HO.POSTANES ---
Post Anesthesia Evaluation Post Anesthesia Evaluation Date of Service: 02/11/24 Vital Signs: Vital Signs Temp Pulse Resp BP Pulse Ox O2 Del Method O2 Flow Rate 02/11/24 08:43 91 95 02/11/24 08:04 91 15 02/11/24 07:52 98.0 F 91 17 137/65 95 Oxymask 5.0 02/11/24 04:28 100 16 02/11/24 03:02 98.5 F 91 16 140/70 H 95 Oxymask 3 Anesthesia: Spinal Mental Status: Sedated Pain Control: Satisfactory Nausea/Vomiting: None Hydration: Adequate Anesthesia-Related Issues: No Anes. Related Issues
[2024-02-11] MEDS: Lactated Ringers 1,000 ML 80 ML IVCONT (11:13)
--- NOTE | 2024-02-11 11:43 | HO.PM.IMPN ---
Subjective Subjective Date of Service: 02/11/24 Interval History: f/u hip fracture hip repair done yesterday NPO d/t dysphagia Physical Exam Vital Signs: Vital Signs: Last Vital Signs Temp 98.0 F 02/11/24 07:52 Pulse 91 02/11/24 08:43 Resp 15 02/11/24 08:04 BP 137/65 02/11/24 07:52 Pulse Ox 95 02/11/24 08:43 O2 Del Method Oxymask 02/11/24 07:52 O2 Flow Rate 5.0 02/11/24 07:52 Oxygen Flow Rate 3 02/08/24 11:19 BMI result Body Mass Index 21.7 General: AO X 3, no acute distress Resp: CTA bilateral CVS: S1,S2,RRR GI: +BS, NT, no distention Skin: surgery site, dry clean and intact Neuro: motor grossly intact Psych: appropriate affect Objective Data Active Medications Acetaminophen (Acetaminophen 325 Mg Tablet) 650 mg PO Q6H PRN PRN Reason: Pain, Mild (Pain Scale 1-3), fever or headache Last Admin: 02/08/24 21:00 Dose: 650 mg Documented By: JOSE Albuterol Sulfate (Albuterol Sulfate (0.083%) 2.5 Mg/3 Ml Vial.Neb) 2.5 mg INHALE Q6H PRN PRN Reason: Shortness of Breath Last Admin: 02/11/24 04:28 Dose: 2.5 mg Documented By: LAMIN Albuterol Sulfate (Albuterol Sulfate 90 Mcg 8 Gm Inhaler) 2 puff INHALE Q4H PRN PRN Reason: shortness of breath or wheezing Lipase/Protease/Amylase (Lipase/Prot/Amylase 24/76/120k 1 Cap Capsule.) 1 cap PO TIDAC [facility] Last Admin: 02/11/24 08:58 Dose: Not Given Documented By: NICK Non-Admin Reason: NPO Atorvastatin Calcium (Atorvastatin Calcium 80 Mg Tablet) 80 mg PO DAILY [facility] Last Admin: 02/11/24 10:17 Dose: Not Given Documented By: NICK Non-Admin Reason: NPO Calcium Carbonate (Calcium Carbonate 750 Mg Tab.Chew) 750 mg PO Q4H PRN PRN Reason: Heartburn Calcium Carbonate (Calcium Oyster Shell Elemental 500 Mg Tablet) 500 mg PO BID [facility] Last Admin: 02/11/24 10:17 Dose: Not Given Documented By: NICK Non-Admin Reason: NPO Cyanocobalamin (Cyanocobalamin (Vitamin B-12) 1,000 Mcg Tablet) 1,000 mcg PO DAILY [facility] Last Admin: 02/11/24 10:17 Dose: Not Given Documented By: NICK Non-Admin Reason: NPO Enoxaparin Sodium (Enoxaparin Sodium 40 Mg/0.4 Ml Syringe) 40 mg SUBCUT Q24H [facility] Last Admin: 02/11/24 07:41 Dose: 40 mg Documented By: NICK Fluticasone/Vilanterol (Fluticasone/Vilanterol 100/25 Blst.W.Dev) 1 puff INHALE RDAILY [facility] Last Admin: 02/11/24 08:02 Dose: 1 puff Documented By: ASHA Lactated Ringer's (Lr) 1,000 mls @ 80 mls/hr IVCONT .[id number] [facility] Last Admin: 02/11/24 11:13 Dose: 80 mls/hr Documented By: NICK Cefazolin Sodium/Dextrose (Ancef) 2 gm in 50 mls @ 100 mls/hr IV POSTOP [facility] Latanoprost (Latanoprost 0.005 % Ophth Phoebe 2.5 Ml Drops) 1 drop EYE-BOTH BEDTIME [facility] Last Admin: 02/10/24 20:50 Dose: 1 drop Documented By: EMRE Magnesium Hydroxide (Milk Of Magnesia 30 Ml Oral.Susp) 30 ml PO DAILY PRN PRN Reason: Constipation Melatonin (Melatonin 3 Mg Tablet) 6 mg PO BEDTIME PRN PRN Reason: Insomnia Last Admin: 02/08/24 21:01 Dose: 6 mg Documented By: LAY-FLORENTIN Metoclopramide HCl (Metoclopramide Hcl 10 Mg Tablet) 10 mg PO Q6H PRN PRN Reason: nausea or vomiting Last Admin: 02/09/24 15:03 Dose: 10 mg Documented By: ALVINO Morphine Sulfate (Morphine Sulfate 4 Mg/Ml Cartridge) 2 mg IVPUSH Q4H PRN; Protocol PRN Reason: Pain, Severe (Pain Scale 7-10) Last Admin: 02/11/24 07:41 Dose: 2 mg Documented By: NICK Nitroglycerin (Nitroglycerin 0.4 Mg Tab.Subl) 0.4 mg SUBLINGUAL Q5M PRN PRN Reason: chest pain Omeprazole (Omeprazole 20 Mg Capsule.Dr) 20 mg PO BID@0630,1630 [facility] Last Admin: 02/11/24 06:24 Dose: Not Given Documented By: JIMENA Non-Admin Reason: NPO Oxycodone HCl (Oxycodone Hcl Immed Release 5 Mg Tablet) 5 mg PO Q6H PRN PRN Reason: Pain, Moderate(Pain Scale 4-6) Last Admin: 02/11/24 06:21 Dose: 5 mg Documented By: JIMENA Sodium Chloride (0.9 % Sodium Chloride Flush 3 Ml Syringe) 3 ml IVFLUSH QSHIFT [facility] Last Admin: 02/11/24 07:37 Dose: Not Given Documented By: NICK Non-Admin Reason: IV Running Vitamin D (Cholecalciferol (Vitamin D3) 25 Mcg Tablet) 25 mcg PO DAILY [facility] Last Admin: 02/11/24 10:17 Dose: Not Given Documented By: NICK Non-Admin Reason: NPO Labs 02/11/24 07:46 02/10/24 09:28 Labs: Laboratory Results - last 24 hr 02/08/24 02/11/24 12:12 08:09 POC Glucose 98 Blood Type A Positive Antibody Screen NEGATIVE Crossmatch See Detail Assessment and Plan (1) Respiratory acidosis: Status: Acute (2) Acute exacerbation of chronic obstructive pulmonary disease (COPD): Status: Acute Plan 70-year-old female with history of hypertension, asthma/COPD overlap with chronic hypoxemic hypercapnic respiratory failure on 3-4 L supplemental O2, AAA s/p repair, aortic stenosis, history of CVA, history of DVT no longer on anticoagulation, hyperlipidemia, GERD, CAD admitted for further management of acute fracture of the left hip # acute fracture of the left hip -s/p repair on 02/09 -pain control with morphine and oxycodone -Lovenox for dvt prevention -PT/OT #Dysphagia --cough with food, family states this is chronic -IMPLEMENTATION ADVISOR eval and MBS today #Asthma/copd overlap with chronic hypoxemic hypercapnic respiratory failure -continue baseline home O2 -no acute exacerbation, continue home inhalers, albuterol p.r.n. # hypertension -Med on hold d/t NPO status with significant dysphagia and awaiting speech eval # CAD -no chest pain, EKG without any acute ischemic changes. Troponin within normal limits -hold aspirin as above. Continue atorvastatin. Not on beta-bella DVT prophylaxis- Lovenox Need for inpatient: Hip fracture that needs surgical repair Quality Stroke Does the patient have a stroke diagnosis?: No VTE Prior VTE?: No VTE Risk Level:: Medical - moderate - high VTE Device Contraindication: N/A - Device Ordered VTE Drug Contraindication: Treatment Not Indicated
--- NOTE | 2024-02-11 16:05 | MHC.SL.IMP ---
Date of Plan of Treatment: 02/11/24 Onset of Symptoms/Illness: 02/09/24 Date Treatment Started: 02/11/24 Admitting Diagnosis: Respiratory acidosis, acute exacerbation of chronic obstructive pulmonary disease Primary Speech & Language Diagnosis: R13.12 Oropharyngeal Phase Dysphagia Reason for Today's Visit: 51262 Modified Barium Swallow Study Comments: Patient was sitting up in a chair, getting 02 via Oxymask. She was accompanied by her niece, who assisted in providing background information. Family reports that patient tends to inhale food and eat quickly. She reports patient has a baseline cough and always vomits in the morning and is supposed to take omeprazole before eating. Pre-evaluation Dietary Consistencies: NPO Pre-evaluation Liquid Consistency: NPO Pre-evaluation Medication Administration: NPO Medical History: Medical History COPD (chronic obstructive pulmonary disease) Left ulnar fracture COPD (chronic obstructive pulmonary disease) COVID-19 Early satiety Abdominal bloating COPD exacerbation Essential hypertension Precordial chest pain Tachycardia Dyspnea CVA (cerebral vascular accident) Atherosclerotic cardiovascular disease Psoriasis Hydroureter, right Pernicious anemia Raynauds disease Hernia Emphysema lung Emphysema of lung Asthma History of pyloric channel ulcer Glaucoma Mild acid reflux Surgical History S/P cardiac catheterization H/O carotid endarterectomy (04/01/20) History of AAA (abdominal aortic aneurysm) repair Hx of shoulder surgery Hx of varicose vein stripping SUBJECTIVE: Patient is a 78 year old female admitted for further management of acute fracture of left hip. Bedside dysphagia evaluation was ordered after patient had episode of choking with meal 02/08. Patient and her reported that this happens all the time. Evaluation was deferred until this a.m. as patient as NPO for orthopedic surgery. Pertinent history includes asthma/COPD overlap with chronic hypoxemic hypercapnic respiratory failure on 3-4 L supplemental 02, AAA s/p repair, aortic stenosis, hx CVA, hx DVT no longer on anticoagulation, hyperlipidemia, GERD, and CAD. Food and Liquid Trials: Oral Impairment: Lip Closure: Did not test Oral Impairment: Tongue Control During Bolus Hold: Did not test Oral Impairment: Bolus Preparation/Mastication: 2=Disorganized chewing/mashing with solid pieces of bolus Oral Impairment: Bolus Transport/Lingual Motion: 3=Repetitive/disorganized tongue motion Oral Impairment: Oral Residue: 1=Trace residue lining oral structures Oral Impairment:Initiation of Pharyngeal Swallow: 2=Bolus head at posterior laryngeal surface of epiglottis Pharyngeal Impairment: Soft Palate Elevation: 0=No bolus between soft palate (SP)/pharyngeal wall (PW) Pharyngeal Impairment: Laryngeal Elevation: 1=Partial thyroid cartilage/arytenoids to epiglottic petiole movement Pharyngeal Impairment: Anterior Hyoid Excursion: 1=Partial anterior movement Pharyngeal Impairment: Epiglottic Movement: 1=Partial inversion Pharyngeal Impairment: Laryngeal Vestibular Closure:: 1=Incomplete: narrow column air/contrast in laryngeal vestibule Pharyngeal Impairment: Pharyngeal Stripping Wave: 1=Present: diminished Pharyngeal Impairment: Pharyngeal Contraction: Did not test Pharyngeal Impairment: Pharyngoesophageal Segment Openin=Partial distention/partial duration: partial obstruction of flow Pharyngeal Impairment: Tongue Base (TB) Retraction: 1=Trace column of contrast/air between TB and posterior PW Pharyngeal Impairment: Pharyngeal Residue: 1=Trace residue within or on pharyngeal structures Pharyngeal Impairment: Esophageal Clearance Upright Position: Did not test Impressions and Recommendations Clinical Observations: OBJECTIVE: Time-out: performed at 15:00 Evaluation Start: 14:30; Stop: 14:35 Patient Positioning: Seated 70-90 degrees Viewing Planes: LATERAL ONLY Contrast: MBSImP? Standardized Protocol using commercially prepared, standardized Barium viscosities, including: Varibar? THIN LIQUID (40% w/v, <15 cps) , Varibar? NECTAR (40% w/v, <150-450 cps) , Varibar? THIN HONEY (40% w/v, <800-1800 cps) , 1/2 Shortbread Cookie (1 x1 x.25 ) [id number] [facility] Results: Lip closure for intraoral bolus containment could not be assessed due to logistical reasons not related to physiologic impairment. Tongue control during bolus hold could not be assessed due to logistical reasons not related to physiologic impairment. Bolus preparation and mastication demonstrated disorganized chewing/mashing with solid pieces of the bolus unchewed. Bolus transport/lingual motion was with repetitive/disorganized motion of the tongue. Oral residue was a trace, lining oral structures. Initiation of the pharyngeal swallow occurred as the bolus head was at the posterior laryngeal surface of the epiglottis. Soft palate elevation resulted in no bolus between the soft palate and the pharyngeal wall. Laryngeal elevation was decreased, with partial superior movement of the thyroid cartilage/partial approximation of the arytenoids to the epiglottic petiole. Anterior hyoid excursion demonstrated partial anterior movement. Epiglottic movement resulted in partial inversion. Laryngeal vestibular closure was incomplete, with a narrow column of air/contrast noted within the laryngeal vestibule at the height of the swallow. Pharyngeal stripping wave was present, but diminished. Pharyngeal contraction could not be determined due to logistical reasons not related to physiologic impairment. Pharyngoesophageal segment opening demonstrated partial distension/partial duration, with partial obstruction of bolus flow. Tongue base retraction allowed a trace column of contrast or air between the retracted tongue base and the posterior pharyngeal wall. Pharyngeal residue was a trace within or on pharyngeal structures. Esophageal clearance in the upright position could not be assessed due to logistical reasons not related to physiologic impairment. Oral Impairment Score: 7 (absence of score, component 1component 2) Pharyngeal Impairment Score: 6 (absence of score, component 13) Esophageal Impairment Score: --- (absence of score, component 17) Laryngeal Penetration and Aspiration: Penetration was observed in today's study. Cookie Contrast entered the airway, remained above the vocal folds, and was ejected from the airway. Thin Contrast entered the airway, contacted the vocal folds, and was not ejected from the airway. ASSESSMENT: Clinician Assessment: This exam was conducted by the radiologist and the speech pathologist. Patient was seated upright in a stretcher for lateral view only. Patient had a tendency to drop utensils and spill liquid on herself. For that reason, she required 1:1 assistance feeding during this exam. Patient trialed the following consistencies: -Thin liquid (via teaspoon and straw) -Carbon thick liquid (via straw) -Honey thick liquid (via straw) -Puree -Regular solid (Krissy Doone cookies coated in barium pudding) Patient demonstrated slowed and delayed oral phase. Disorganized chewing, with visualization of solid, unchewed pieces. Repetitive tongue pumping with lingual transport. Trace oral residuals. Pharygneal swallow trigger initiated as the bolus head reached the posterior laryngeal surface of the epiglottis. No evidence of nasopharyngeal reflux. Incomplete laryngeal elevation with partial epiglottic inversion and incomplete laryngeal vestibular closure. There was deep penetration with thin contrast entering the trachea to the level of the vocal folds. Patient was cued for multiple volitional coughs, throat clearing, and dry swallow, which did not eject contrast, which was coating the trachea and posterior epiglottis. There was penetration of piece of cookie above the vocal folds, which ejected with a dry swallow. There was trace coating of residue on the tongue base, in the valleculae, and in the pyriforms with liquids. Liquid Intake Recommendation: Carbon Thick Liquid Intake Strategies: Small Sips, Double Swallow Dietary Recommendations: Grnd/Mech Altered (NDD2) Medication Administration: Crushed with Puree Please contact the pharmacy regarding appropriate crushable or liquid drug formulations that are available whenever modified delivery is recommended. Compensatory Strategies Recommended: Sitting Upright (90 deg). Double Swallow, Small Bites and Sips, Alternate Liquids/Solids, Rate of Ingestion Change, Avoid Specific Foods Supervision during eating and or drinking: Total Supervision (1:1) Recommended Treatments: Compens. Strategy Educat. Recommendation for Speech Therapy: Inpatient Speech Therapy Text Comment: Intake Recommendations: Route: PO Diet Grade: Mechanical Soft Liquid Consistencies: Carbon Post-Study Functional Oral Intake Scale (FOIS): 5- Total oral intake of multiple consistencies requiring special preparation Note penetration above vocal folds with piece of cookie, which patient was able to clear with a dry swallow. There was penetration to the vocal folds with thin liquids. Patient did not elicit a spontaneous cough or throat clear. She was cued to produce a volitional cough and dry swallows, which did not eject contrast coating the trachea and posterior epiglottis. No evidence of aspiration during this exam, however, patient was unable to clear thin contrast coating the trachea, putting patient at risk for aspiration after the swallow. Slow and delayed oral phase characterized by repetitive tongue pumping and disorganized chewing with solid pieces of food visualized. Recommend start on GROUND/MECH ALTERED (NDD2) diet and NECTAR THICK liquids, with pills CRUSHED in PUREE. Patient will need DIRECT SUPERVISION for all PO intake due to impulsivity and observed unsafe eating behaviors. The following precautions are recommended to increase safety: -upright 90 degree position when eating and drinking and for at least 30 minutes afterwards -small bites -moisten foods with sauces and gravies which are nectar thick or honey thick -chew food well -one bite at a time, clear oral cavity before taking next bite -dry swallow between bites -alternate bites with sips of liquid -small individual sips -avoid quick, sequential sips DIRECTOR DISTRIBUTION will continue to follow to monitor patient?s tolerance of modified diet and to provide further education and support in regards to recommended strategies/precautions. Therapy Recommendations: Therapy will be continued Retirement Goals: ? The patient will tolerate the least restrictive diet with a safe/efficient swallow to maintain adequate nutrition and hydration. ? The patient and/or family will participate in further education for swallowing goals. Short Term Goals: ? Diet - The patient will tolerate a mechanical soft diet with nectar thick liquids without signs or symptoms of penetration/aspiration 100% of the time. - The patient will participate in therapeutic PO trials with the DIRECTOR DISTRIBUTION. ? Guidelines - The patient will comply with/recall the following guidelines/strategies 100% of the time with minimal cuing: Carbon-thick Liquid, Bolus Volume Change, Rate of Ingestion Change, Additional Swallow(s) per Bolus. ? Education - The patient, family, caregiver will verbalize/demonstrate understanding of the results of this evaluation, the above recommendations, and the swallowing guidelines. Frequency/Duration: M-F PRN Date Range for Service Requested: Timeline to reassess: Clinician - Supplemental, Miscellaneous Communication: It is important to note MBSS objective studies are snapshots in time and Patient function might vary with factors such as time of day or concomitant medical conditions. For this reason, the final treatment plan for this patient should rest with their medical care team. Additional recommendations should be considered with the totality of the Patient in mind. Thank for the opportunity to participate in the care of this patient. If you have any questions about the content of this report, please contact the [facility] at [facility]. Scheduling Assistant Clinician/Clinical Fellow: No Supervisory Statement: N/A Speech Language Pathologist: Shasta Tinoco M.A., [facility]-DIRECTOR DISTRIBUTION
--- NOTE | 2024-02-11 16:26 | MHC.CM.PN ---
PT WILL NEED STR, [facility] ACCEPTING, [facility]
[2024-02-11] MEDS: Calcium Oyster Shell Elemental 500 MG TABLET PO (20:33)
[2024-02-11] MEDS: Latanoprost 0.005 % Ophth Sol 2.5 ML DROPS 1 DROP EYE-BOTH (21:34)
[2024-02-12] MEDS: Morphine Sulfate 4 MG/ML CARTRIDGE 2 MG IVPUSH ×4 (01:11→19:52)
[2024-02-12 03:45] VITALS: BP 137/84; PULSE 56; RESP 18; TEMP 36.4; O2SAT 94
[2024-02-12] MEDS: Lactated Ringers 1,000 ML 80 ML IVCONT (04:24)
[2024-02-12] MEDS: Omeprazole 20 MG CAPSULE.DR PO ×2 (05:44→16:20)
[2024-02-12 06:23] LABS: Hemoglobin 9.5 g/dl (12.0-16.0); Mean Corpuscular HGB Conc 30.6 g/dl (31.0-35.0); Mean Corpuscular Hemoglobin 26.6 pg (27.0-33.0); Mean Corpuscular Volume 86.8 fL (80.0-98.0); Mean Platelet Volume 12.1 fL (9.4-12.3); Platelet Count 159 X10*3/uL (160-400); Red Blood Count 3.57 X10*6/uL (4.20-5.50); Red Cell Distribution Width 17.2 % (11.0-16.0); White Blood Count 7.5 X10*3/uL (4.8-10.8)
[2024-02-12 06:47] LABS: Anion Gap 10 (12-20); Blood Urea Nitrogen 26 mg/dL (9-16); Calcium 9.1 mg/dL (8.4-10.2); Carbon Dioxide 33 mmol/L (22-29); Chloride 102 mmol/L (96-108); Creatinine Clr Calc Pharmacy 61.5; Estimated Glomerular Filt Rate > 60; Glucose Random 87 mg/dL (60-115); Potassium 4.1 mmol/L (3.3-5.1); Sodium 141 mmol/L (135-145)
[2024-02-12 07:07] VITALS: BP 152/67; PULSE 76; RESP 18; TEMP 36.9; O2SAT 95
--- NOTE | 2024-02-12 08:14 | PC.RT ---
Addendum entered by Wallace Giles, RT 02/12/24 08:22: Pt found on 5 lpm oxy mask, transitioned to 3 lpm n/c as home O2 Original Note: Pt noted lethargic but arousable, pt speaking and appropriate but unable to gen insp effort for DPI at this time. Nurse aware.
[2024-02-12] MEDS: Enoxaparin Sodium 40 MG/0.4 ML SYRINGE SUBCUT (08:44)
[2024-02-12] MEDS: Acetaminophen 325 MG TABLET 650 MG PO (08:57)
[2024-02-12] MEDS: Atorvastatin Calcium 80 MG TABLET PO (08:58)
[2024-02-12] MEDS: Metoclopramide HCl 10 MG TABLET PO ×3 (08:58→22:44)
[2024-02-12] MEDS: Calcium Oyster Shell Elemental 500 MG TABLET PO ×2 (08:58→20:27)
[2024-02-12] MEDS: Cholecalciferol (Vitamin D3) 25 MCG TABLET PO (08:58)
[2024-02-12] MEDS: Cyanocobalamin (Vitamin B-12) 1,000 MCG TABLET 1000 MCG PO (08:58)
--- NOTE | 2024-02-12 09:21 | PM.PNORT ---
Subjective Subjective Date of Service: 02/12/24 Interval history: POD2 s/p left hip pepper Patient is resting in bed - complains of pain No overnight events Physical Exam Vital Signs: Vital Signs: Last Vital Signs Temp 98.5 F 02/12/24 07:07 Pulse 76 02/12/24 07:07 Resp 18 02/12/24 07:07 BP 152/67 H 02/12/24 07:07 Pulse Ox 95 02/12/24 07:07 O2 Del Method Oxymask 02/12/24 07:07 O2 Flow Rate 4 02/12/24 03:45 Oxygen Flow Rate 3 02/08/24 11:19 BMI result Body Mass Index 21.7 Const: General: cooperative, healthy appearing and no acute distress Resp: Effort & Inspection: normal respiratory effort and able to speak in complete sentences Cardio: Rate: regular rate Peripheral pulses: Peripheral pulses 2+ throughout GI: Palpation (GI): Soft to palpation Skin: Lesions: no lesions Rashes: no rashes Extrem: Other: left hip pepper dressing is c/d/i. Able to dorsi/plantar flex. Calf is supple and nontender. Sensation intact. Pedal pulse intact. Procedures Date of Service Date of Service: 02/12/24 Progress Note: A&P Assessment and plan (1) Status post hip hemiarthroplasty: Status: Acute Plan Continue pain mgmnt Continue Lovenox for dvt ppx Continue PT/OT for left hip pepper - posterior precautions Dispo planning- PT, pain mgmnt, rehab placement - cleared for d/c to rehab from orthopedic perspective once medically cleared Time Spent With Patient Time: Total time managing care of this patient today ____ minutes. Quality Stroke Does the patient have a stroke diagnosis?: No VTE Prior VTE?: No VTE Risk Level:: Medical - moderate - high VTE Device Contraindication: N/A - Device Ordered VTE Drug Contraindication: Treatment Not Indicated
--- NOTE | 2024-02-12 09:30 | P.PNIM_ITS ---
Subjective Subjective Date of Service: 02/12/24 Interval History: f/u hip fracture hip repair done 02/09 denies pain Physical Exam 2 Vital Signs: Vital Signs: Last Vital Signs Temp 98.5 F 02/12/24 07:07 Pulse 76 02/12/24 07:07 Resp 18 02/12/24 07:07 BP 152/67 H 02/12/24 07:07 Pulse Ox 95 02/12/24 07:07 O2 Del Method Oxymask 02/12/24 07:07 O2 Flow Rate 4 02/12/24 03:45 Oxygen Flow Rate 3 02/08/24 11:19 BMI result Body Mass Index 21.7 General: AO X 3, no acute distress Resp: CTA bilateral CVS: S1,S2,RRR GI: +BS, NT, no distention Skin: surgery site, dry clean and intact Neuro: motor grossly intact Psych: appropriate affect Objective Data Active Medications Acetaminophen (Acetaminophen 325 Mg Tablet) 650 mg PO Q6H PRN PRN Reason: Pain, Mild (Pain Scale 1-3), fever or headache Last Admin: 02/12/24 08:57 Dose: 650 mg Documented By: GORDY Albuterol Sulfate (Albuterol Sulfate (0.083%) 2.5 Mg/3 Ml Vial.Neb) 2.5 mg INHALE Q6H PRN PRN Reason: Shortness of Breath Last Admin: 02/11/24 04:28 Dose: 2.5 mg Documented By: LAMIN Albuterol Sulfate (Albuterol Sulfate 90 Mcg 8 Gm Inhaler) 2 puff INHALE Q4H PRN PRN Reason: shortness of breath or wheezing Lipase/Protease/Amylase (Lipase/Prot/Amylase 24/76/120k 1 Cap Capsule.) 1 cap PO TIDAC [facility] Last Admin: 02/12/24 08:45 Dose: Not Given Documented By: GORDY Non-Admin Reason: unable to crush med Atorvastatin Calcium (Atorvastatin Calcium 80 Mg Tablet) 80 mg PO DAILY [facility] Last Admin: 02/12/24 08:58 Dose: 80 mg Documented By: GORDY Calcium Carbonate (Calcium Carbonate 750 Mg Tab.Chew) 750 mg PO Q4H PRN PRN Reason: Heartburn Calcium Carbonate (Calcium Oyster Shell Elemental 500 Mg Tablet) 500 mg PO BID [facility] Last Admin: 02/12/24 08:58 Dose: 500 mg Documented By: GORDY Cyanocobalamin (Cyanocobalamin (Vitamin B-12) 1,000 Mcg Tablet) 1,000 mcg PO DAILY [facility] Last Admin: 02/12/24 08:58 Dose: 1,000 mcg Documented By: GORDY Enoxaparin Sodium (Enoxaparin Sodium 40 Mg/0.4 Ml Syringe) 40 mg SUBCUT Q24H [facility] Last Admin: 02/12/24 08:44 Dose: 40 mg Documented By: GORDY Fluticasone/Vilanterol (Fluticasone/Vilanterol 100/25 Blst.W.Dev) 1 puff INHALE RDAILY [facility] Last Admin: 02/12/24 08:13 Dose: Not Given Documented By: DURAN Non-Admin Reason: pt unable Cefazolin Sodium/Dextrose (Ancef) 2 gm in 50 mls @ 100 mls/hr IV POSTOP [facility] Latanoprost (Latanoprost 0.005 % Ophth Phoebe 2.5 Ml Drops) 1 drop EYE-BOTH BEDTIME [facility] Last Admin: 02/11/24 21:34 Dose: 1 drop Documented By: VIVI Magnesium Hydroxide (Milk Of Magnesia 30 Ml Oral.Susp) 30 ml PO DAILY PRN PRN Reason: Constipation Melatonin (Melatonin 3 Mg Tablet) 6 mg PO BEDTIME PRN PRN Reason: Insomnia Last Admin: 02/08/24 21:01 Dose: 6 mg Documented By: JOSE Metoclopramide HCl (Metoclopramide Hcl 10 Mg Tablet) 10 mg PO Q6H PRN PRN Reason: nausea or vomiting Last Admin: 02/12/24 08:58 Dose: 10 mg Documented By: GORDY Morphine Sulfate (Morphine Sulfate 4 Mg/Ml Cartridge) 2 mg IVPUSH Q4H PRN; Protocol PRN Reason: Pain, Severe (Pain Scale 7-10) Last Admin: 02/12/24 05:54 Dose: 2 mg Documented By: VIVI Nitroglycerin (Nitroglycerin 0.4 Mg Tab.Subl) 0.4 mg SUBLINGUAL Q5M PRN PRN Reason: chest pain Omeprazole (Omeprazole 20 Mg Capsule.Dr) 20 mg PO BID@0630,1630 [facility] Last Admin: 02/12/24 05:44 Dose: 20 mg Documented By: VIVI Oxycodone HCl (Oxycodone Hcl Immed Release 5 Mg Tablet) 5 mg PO Q6H PRN PRN Reason: Pain, Moderate(Pain Scale 4-6) Last Admin: 02/11/24 06:21 Dose: 5 mg Documented By: JIMENA Sodium Chloride (0.9 % Sodium Chloride Flush 3 Ml Syringe) 3 ml IVFLUSH QSHIFT [facility] Last Admin: 02/12/24 08:45 Dose: Not Given Documented By: GORDY Non-Admin Reason: IV Running Vitamin D (Cholecalciferol (Vitamin D3) 25 Mcg Tablet) 25 mcg PO DAILY [facility] Last Admin: 02/12/24 08:58 Dose: 25 mcg Documented By: GORDY Labs 02/12/24 05:50 02/12/24 05:50 Labs: Laboratory Results - last 24 hr 02/12/24 05:50 MCV 86.8 MCH 26.6 L MCHC 30.6 L RDW 17.2 H Plt Count 159 L MPV 12.1 Absolute Nucleated RBC 0.000 Nucleated RBC % (auto) 0.0 Anion Gap 10 L Estim Creat Clear Calc 61.5 Estimated GFR > 60 Random Glucose 87 Calcium 9.1 Assessment and Plan (1) Respiratory acidosis: Status: Acute (2) Acute exacerbation of chronic obstructive pulmonary disease (COPD): Status: Acute Plan 70-year-old female with history of hypertension, asthma/COPD overlap with chronic hypoxemic hypercapnic respiratory failure on 3-4 L supplemental O2, AAA s/p repair, aortic stenosis, history of CVA, history of DVT no longer on anticoagulation, hyperlipidemia, GERD, CAD admitted for further management of acute fracture of the left hip # acute fracture of the left hip -s/p repair on 02/09 -pain control with APAP and oxycodone -Lovenox for dvt prevention -PT/OT, ultimately to STR #Dysphagia --cough with food, family states this is chronic -following MBS, VIDEO PRESENTATION OPERATOR recommend [place] thick liquid, and ground mechanical #Asthma/copd overlap with chronic hypoxemic hypercapnic respiratory failure -continue baseline home with goal of 88 to 94% -no acute exacerbation, continue home inhalers, albuterol p.r.n. # hypertension -Med on hold d/t NPO status with significant dysphagia and awaiting speech eval # CAD -no chest pain, EKG without any acute ischemic changes. Troponin within normal limits -hold aspirin as above. Continue atorvastatin. Not on beta-bella DVT prophylaxis- Lovenox Need for inpatient: Hip fracture that needs surgical repair Quality Stroke Does the patient have a stroke diagnosis?: No VTE Prior VTE?: No VTE Risk Level:: Medical - moderate - high VTE Device Contraindication: N/A - Device Ordered VTE Drug Contraindication: Treatment Not Indicated
[2024-02-12 10:00] VITALS: BP 152/67; PULSE 76; O2SAT 95
[2024-02-12] MEDS: Lipase/Prot/Amylase 24/76/120K 1 CAP CAPSULE.DR PO ×2 (11:39→16:21)
[2024-02-12 19:42] VITALS: BP 131/59; PULSE 110; RESP 19; TEMP 36.6; O2SAT 92
[2024-02-12] MEDS: Latanoprost 0.005 % Ophth Sol 2.5 ML DROPS 1 DROP EYE-BOTH (20:27)
[2024-02-12] MEDS: 0.9 % Sodium Chloride Flush 3 ML SYRINGE IVFLUSH (20:27)
[2024-02-12 23:31] VITALS: BP 164/77; PULSE 58; RESP 18; TEMP 36.3; O2SAT 96
[2024-02-13 03:49] VITALS: BP 137/85; PULSE 61; RESP 18; TEMP 36.4; O2SAT 95
[2024-02-13] MEDS: Morphine Sulfate 4 MG/ML CARTRIDGE 2 MG IVPUSH (05:16)
[2024-02-13] MEDS: Omeprazole 20 MG CAPSULE.DR PO ×2 (05:17→15:30)
[2024-02-13 06:57] VITALS: BP 127/72; PULSE 101; RESP 17; TEMP 36.6; O2SAT 92
[2024-02-13 06:58] LABS: Hematocrit 31.6 % (37.0-47.0); Hemoglobin 9.5 g/dl (12.0-16.0); Mean Corpuscular HGB Conc 30.1 g/dl (31.0-35.0); Mean Corpuscular Hemoglobin 26.1 pg (27.0-33.0); Mean Corpuscular Volume 86.8 fL (80.0-98.0); Mean Platelet Volume 11.9 fL (9.4-12.3); Platelet Count 180 X10*3/uL (160-400); Red Blood Count 3.64 X10*6/uL (4.20-5.50); Red Cell Distribution Width 17.2 % (11.0-16.0); White Blood Count 7.3 X10*3/uL (4.8-10.8)
[2024-02-13 07:03] LABS: Anion Gap 12 (12-20); Blood Urea Nitrogen 26 mg/dL (9-16); Calcium 8.7 mg/dL (8.4-10.2); Carbon Dioxide 33 mmol/L (22-29); Chloride 101 mmol/L (96-108); Estimated Glomerular Filt Rate > 60; Glucose Random 95 mg/dL (60-115); Potassium 3.8 mmol/L (3.3-5.1); Sodium 142 mmol/L (135-145)
--- NOTE | 2024-02-13 08:11 | PM.PNORT ---
Subjective Subjective Date of Service: 02/13/24 Interval history: POD3 s/p left hip pepper Patient is resting in bed Pain is managed No overnight events Physical Exam Vital Signs: Vital Signs: Last Vital Signs Temp 98 F 02/13/24 06:57 Pulse 101 H 02/13/24 06:57 Resp 17 02/13/24 06:57 BP 127/72 02/13/24 06:57 Pulse Ox 92 02/13/24 06:57 O2 Del Method Nasal Cannula 02/13/24 06:57 O2 Flow Rate 3 02/13/24 06:57 Oxygen Flow Rate 3 02/08/24 11:19 BMI result Body Mass Index 21.7 Const: General: cooperative, healthy appearing and no acute distress Resp: Effort & Inspection: normal respiratory effort and able to speak in complete sentences Cardio: Rate: regular rate Peripheral pulses: Peripheral pulses 2+ throughout GI: Palpation (GI): Soft to palpation Skin: Lesions: no lesions Rashes: no rashes Extrem: Other: left hip pepper dressing is c/d/i. Able to dorsi/plantar flex. Calf is supple and nontender. Sensation intact. Pedal pulse intact. Procedures Date of Service Date of Service: 02/13/24 Progress Note: A&P Assessment and plan (1) Status post hip hemiarthroplasty: Status: Acute Plan Continue pain mgmnt Continue Lovenox for dvt ppx Continue PT/OT for left hip pepper - posterior precautions Dispo planning- PT, pain mgmnt, rehab placement - cleared for d/c to rehab from orthopedic perspective once medically cleared Time Spent With Patient Time: Total time managing care of this patient today ____ minutes. Quality Stroke Does the patient have a stroke diagnosis?: No VTE Prior VTE?: No VTE Risk Level:: Medical - moderate - high VTE Device Contraindication: N/A - Device Ordered VTE Drug Contraindication: Treatment Not Indicated
[2024-02-13] MEDS: Calcium Oyster Shell Elemental 500 MG TABLET PO ×2 (08:13→20:04)
[2024-02-13] MEDS: Lipase/Prot/Amylase 24/76/120K 1 CAP CAPSULE.DR PO ×3 (08:13→15:30)
[2024-02-13] MEDS: Metoclopramide HCl 10 MG TABLET PO (08:13)
[2024-02-13] MEDS: Atorvastatin Calcium 80 MG TABLET PO (08:13)
[2024-02-13] MEDS: Cholecalciferol (Vitamin D3) 25 MCG TABLET PO (08:13)
[2024-02-13] MEDS: Cyanocobalamin (Vitamin B-12) 1,000 MCG TABLET 1000 MCG PO (08:13)
[2024-02-13] MEDS: Enoxaparin Sodium 40 MG/0.4 ML SYRINGE SUBCUT (08:14)
[2024-02-13] MEDS: 0.9 % Sodium Chloride Flush 3 ML SYRINGE IVFLUSH ×3 (08:14→23:58)
[2024-02-13] MEDS: Fluticasone/Vilanterol 100/25 BLST.W.DEV 1 PUFF INHALE (08:49)
[2024-02-13 08:51] VITALS: PULSE 94; RESP 16; O2SAT 93
--- NOTE | 2024-02-13 09:38 | HO.PM.IMPN ---
Subjective Subjective Date of Service: 02/13/24 Interval History: f/u hip fracture hip repair done 02/09 she says she feels better today, more awake and alert, no korey, no respriatory distress Physical Exam Vital Signs: Vital Signs: Last Vital Signs Temp 98 F 02/13/24 06:57 Pulse 94 02/13/24 08:51 Resp 16 02/13/24 08:51 BP 127/72 02/13/24 06:57 Pulse Ox 92 02/13/24 06:57 O2 Del Method Nasal Cannula 02/13/24 06:57 O2 Flow Rate 3 02/13/24 06:57 Oxygen Flow Rate 3 02/08/24 11:19 BMI result Body Mass Index 21.7 General: AO X , no acute distress Resp: CTA bilateral CVS: S1,S2,RRR GI: +BS, NT, no distention Skin: surgery site, dry clean and intact Neuro: motor grossly intact Psych: appropriate affect Objective Data Active Medications Acetaminophen (Acetaminophen 325 Mg Tablet) 650 mg PO Q6H PRN PRN Reason: Pain, Mild (Pain Scale 1-3), fever or headache Last Admin: 02/12/24 08:57 Dose: 650 mg Documented By: GORDY Albuterol Sulfate (Albuterol Sulfate (0.083%) 2.5 Mg/3 Ml Vial.Neb) 2.5 mg INHALE Q6H PRN PRN Reason: Shortness of Breath Last Admin: 02/11/24 04:28 Dose: 2.5 mg Documented By: LAMIN Albuterol Sulfate (Albuterol Sulfate 90 Mcg 8 Gm Inhaler) 2 puff INHALE Q4H PRN PRN Reason: shortness of breath or wheezing Lipase/Protease/Amylase (Lipase/Prot/Amylase 24/76/120k 1 Cap Capsule.) 1 cap PO TIDAC [facility] Last Admin: 02/13/24 08:13 Dose: 1 cap Documented By: ESTEFANY Atorvastatin Calcium (Atorvastatin Calcium 80 Mg Tablet) 80 mg PO DAILY [facility] Last Admin: 02/13/24 08:13 Dose: 80 mg Documented By: ESTEFANY Calcium Carbonate (Calcium Carbonate 750 Mg Tab.Chew) 750 mg PO Q4H PRN PRN Reason: Heartburn Calcium Carbonate (Calcium Oyster Shell Elemental 500 Mg Tablet) 500 mg PO BID [facility] Last Admin: 02/13/24 08:13 Dose: 500 mg Documented By: ESTEFANY Cyanocobalamin (Cyanocobalamin (Vitamin B-12) 1,000 Mcg Tablet) 1,000 mcg PO DAILY [facility] Last Admin: 02/13/24 08:13 Dose: 1,000 mcg Documented By: ESTEFANY Enoxaparin Sodium (Enoxaparin Sodium 40 Mg/0.4 Ml Syringe) 40 mg SUBCUT Q24H [facility] Last Admin: 02/13/24 08:14 Dose: 40 mg Documented By: ESTEFANY Fluticasone/Vilanterol (Fluticasone/Vilanterol 100/25 Blst.W.Dev) 1 puff INHALE RDAILY [facility] Last Admin: 02/13/24 08:49 Dose: 1 puff Documented By: ADAL Cefazolin Sodium/Dextrose (Ancef) 2 gm in 50 mls @ 100 mls/hr IV POSTOP [facility] Latanoprost (Latanoprost 0.005 % Ophth Phoebe 2.5 Ml Drops) 1 drop EYE-BOTH BEDTIME [facility] Last Admin: 02/12/24 20:27 Dose: 1 drop Documented By: VIVI Magnesium Hydroxide (Milk Of Magnesia 30 Ml Oral.Susp) 30 ml PO DAILY PRN PRN Reason: Constipation Melatonin (Melatonin 3 Mg Tablet) 6 mg PO BEDTIME PRN PRN Reason: Insomnia Last Admin: 02/08/24 21:01 Dose: 6 mg Documented By: LAY-FLORENTIN Metoclopramide HCl (Metoclopramide Hcl 10 Mg Tablet) 10 mg PO Q6H PRN PRN Reason: nausea or vomiting Last Admin: 02/13/24 08:13 Dose: 10 mg Documented By: ESTEFANY Morphine Sulfate (Morphine Sulfate 4 Mg/Ml Cartridge) 2 mg IVPUSH Q4H PRN; Protocol PRN Reason: Pain, Severe (Pain Scale 7-10) Last Admin: 02/13/24 05:16 Dose: 2 mg Documented By: VIVI Nitroglycerin (Nitroglycerin 0.4 Mg Tab.Subl) 0.4 mg SUBLINGUAL Q5M PRN PRN Reason: chest pain Omeprazole (Omeprazole 20 Mg Capsule.Dr) 20 mg PO BID@0630,1630 [facility] Last Admin: 02/13/24 05:17 Dose: 20 mg Documented By: ODRISNavin Oxycodone HCl (Oxycodone Hcl Immed Release 5 Mg Tablet) 5 mg PO Q6H PRN PRN Reason: Pain, Moderate(Pain Scale 4-6) Last Admin: 02/11/24 06:21 Dose: 5 mg Documented By: JIMENA Sodium Chloride (0.9 % Sodium Chloride Flush 3 Ml Syringe) 3 ml IVFLUSH QSHIFT [facility] Last Admin: 02/13/24 08:14 Dose: 3 ml Documented By: ESTEFANY Vitamin D (Cholecalciferol (Vitamin D3) 25 Mcg Tablet) 25 mcg PO DAILY [facility] Last Admin: 02/13/24 08:13 Dose: 25 mcg Documented By: ESTEFANY Labs 02/13/24 06:17 02/13/24 06:17 Labs: Laboratory Results - last 24 hr 02/13/24 06:17 MCV 86.8 MCH 26.1 L MCHC 30.1 L RDW 17.2 H Plt Count 180 MPV 11.9 Absolute Nucleated RBC 0.000 Nucleated RBC % (auto) 0.0 Anion Gap 12 Estim Creat Clear Calc 69.0 Estimated GFR > 60 Random Glucose 95 Calcium 8.7 Assessment and Plan (1) Respiratory acidosis: Status: Acute (2) Acute exacerbation of chronic obstructive pulmonary disease (COPD): Status: Acute Plan 70-year-old female with history of hypertension, asthma/COPD overlap with chronic hypoxemic hypercapnic respiratory failure on 3-4 L supplemental O2, AAA s/p repair, aortic stenosis, history of CVA, history of DVT no longer on anticoagulation, hyperlipidemia, GERD, CAD admitted for further management of acute fracture of the left hip # acute fracture of the left hip -s/p repair on 02/09 -pain control with APAP and oxycodone -Lovenox for dvt prevention for 6 weeks -PT/OT, ultimately to STR #Dysphagia --cough with food, family states this is chronic -following MBS, FLAP LINING BINDER recommend [place] thick liquid, and ground mechanical #Asthma/copd overlap with chronic hypoxemic hypercapnic respiratory failure -continue baseline home with goal of 88 to 94% -no acute exacerbation, continue home inhalers, albuterol p.r.n. # hypertension--resume lisinopril # CAD -no chest pain, EKG without any acute ischemic changes. Troponin within normal limits -resume aspirin . Continue atorvastatin. Not on beta-bella #HLD--Lipitor DVT prophylaxis- Lovenox Need for inpatient: Hip fracture that needs surgical repair To STR when bed available, Quality Stroke Does the patient have a stroke diagnosis?: No VTE Prior VTE?: No VTE Risk Level:: Medical - moderate - high VTE Device Contraindication: N/A - Device Ordered VTE Drug Contraindication: Treatment Not Indicated
[2024-02-13] MEDS: Aspirin Enteric Coated 81 MG TABLET.DR PO (10:09)
[2024-02-13] MEDS: oxyCODONE HCl Immed Release 5 MG TABLET PO ×2 (10:09→23:42)
[2024-02-13 15:40] VITALS: BP 112/57; PULSE 110; RESP 18; TEMP 37.2; O2SAT 90
[2024-02-13 19:18] VITALS: BP 117/58; PULSE 97; RESP 18; TEMP 37.2; O2SAT 90
[2024-02-13] MEDS: Latanoprost 0.005 % Ophth Sol 2.5 ML DROPS 1 DROP EYE-BOTH (21:45)
[2024-02-13 23:58] VITALS: BP 128/73; PULSE 96; RESP 18; TEMP 36.8; O2SAT 92
[2024-02-14] VITALS (8 sets, daily range): BP systolic 110–132; BP diastolic 59–88; PULSE 80–114; RESP 16–18; TEMP 36.2–37.2; O2SAT 90–96
[2024-02-14 07:20] LABS: Hematocrit 32.7 % (37.0-47.0); Hemoglobin 10.2 g/dl (12.0-16.0); Mean Corpuscular HGB Conc 31.2 g/dl (31.0-35.0); Mean Corpuscular Hemoglobin 27.1 pg (27.0-33.0); Mean Corpuscular Volume 86.7 fL (80.0-98.0); Mean Platelet Volume 11.7 fL (9.4-12.3); Platelet Count 217 X10*3/uL (160-400); Red Blood Count 3.77 X10*6/uL (4.20-5.50); Red Cell Distribution Width 17.2 % (11.0-16.0); White Blood Count 6.9 X10*3/uL (4.8-10.8)
[2024-02-14] MEDS: 0.9 % Sodium Chloride Flush 3 ML SYRINGE IVFLUSH ×3 (07:29→19:34)
[2024-02-14] MEDS: Calcium Oyster Shell Elemental 500 MG TABLET PO ×2 (07:34→19:34)
[2024-02-14] MEDS: Cholecalciferol (Vitamin D3) 25 MCG TABLET PO (07:34)
[2024-02-14] MEDS: Cyanocobalamin (Vitamin B-12) 1,000 MCG TABLET 1000 MCG PO (07:34)
[2024-02-14] MEDS: Enoxaparin Sodium 40 MG/0.4 ML SYRINGE SUBCUT (07:34)
[2024-02-14] MEDS: oxyCODONE HCl Immed Release 5 MG TABLET PO ×3 (07:34→19:33)
[2024-02-14] MEDS: Lipase/Prot/Amylase 24/76/120K 1 CAP CAPSULE.DR PO ×3 (07:34→17:07)
[2024-02-14] MEDS: lisinopriL 10 MG TABLET PO (07:35)
[2024-02-14] MEDS: Aspirin Enteric Coated 81 MG TABLET.DR PO (07:35)
[2024-02-14] MEDS: Atorvastatin Calcium 80 MG TABLET PO (07:35)
[2024-02-14] MEDS: Fluticasone/Vilanterol 100/25 BLST.W.DEV 1 PUFF INHALE (08:08)
--- NOTE | 2024-02-14 10:20 | PC.RT ---
pt refusing to wear cpap for more than 3 days. therefore order will be dc'd
[2024-02-14] MEDS: Milk of Magnesia 30 ML ORAL.SUSP PO (11:12)
--- NOTE | 2024-02-14 11:36 | MHC.CM.PN ---
Addendum entered by Ekaterina Gamboa 02/14/24 11:47: CM MET WITH PT WHO IS AWARE SHE IS GOING TO STR TODAY AT [facility] PENDING INSURANCE AUTH SHE IS AWARE TRANSPORT HAS BEEN BOOKED FOR 1600 HOURS SHE ASKED THAT HER NIECE JULI BE CALLED WITH UPDATES CM CALLED PTS NURA LOPEZ [phone], SHE IS AWARE AND IN AGREEMENT WITH THE DCP/TIME Original Note: [facility] HAS OFFERED A BED, AND SUBMITTED FOR AUTH TRANSPORT BOOKED FOR 1600 HOURS TENTATIVELY
--- NOTE | 2024-02-14 12:12 | P.DS_ITS ---
DS: Providers Provider Date of Service: 02/15/24 Date of admission: 02/08/24 16:47 Date of discharge: 02/15/24 Primary care physician: Pipe Washburn PA-C Consults: 02/08/24 16:52 Consult to Orthopedics Routine Consulting Provider: [facility] Reason for consultation: R hip fracture DS: Diagnosis Discharge Diagnosis (1) Respiratory acidosis: Status: Acute (2) Acute exacerbation of chronic obstructive pulmonary disease (COPD): Status: Acute DS: Summary Hospital Course Hospital Course: Admission HPI Chief Complaint: fall 70-year-old female with history of hypertension, asthma/COPD overlap with chronic hypoxemic hypercapnic respiratory failure on 3-4 L supplemental O2, AAA s/p repair, aortic stenosis, history of CVA, history of DVT no longer on anticoagulation, hyperlipidemia, GERD, CAD presented to the ED earlier today after sustaining a mechanical fall 3 days ago. She states she was ambulating and tripped over a fan landing on the left hip. She does believe she hit her head but did not lose consciousness. She denies any prodrome leading up to the fall including lightheadedness, palpitations, vision changes, headache, weakness, paresthesias, shortness of breath, chest pain. She does report chronic issues with dyspnea, wheezing, and productive cough but denies any oliva ges in quality or severity of symptoms. She denies any recent increase in oxygen or albuterol usage. She states she was unable to get herself up without assistance after falling but has been ambulating though reports significant pain in the left hip while doing so. She is a former tobacco smoker with a 120 pack- year history but denies any illicit drug use or alcohol use. Since arrival, vital signs have been stable. Hematology studies significant for a mild normocytic anemia with H/H 11.7/38.7%. Renal function baseline, electrolyte levels normal. VBG shows a very mild respiratory acidosis with some compensation with pH 7.31, pCO2 70, bicarb 35. PT 12.2, INR 1.0. Troponin 5.4. BNP 185. Head CT negative for any acute intracranial abnormality which shows progressive ischemic changes most likely in the right posterior parietal lobe not acute but new from prior studies. Chest x-ray negative for any acute abnormality. X-ray of the left hip and pelvis shows interval development of impacted fracture of the left femoral neck without significant angulation. EKG shows sinus tachycardia with occasional PVCs, rate [address]/T- wave abnormalities. No acute ischemic changes. In the ED, has received IV LR, fentanyl, methylprednisolone, oxycodone, Tylenol, and DuoNeb. Hospital course: 70-year-old female with history of hypertension, asthma/COPD overlap with chronic hypoxemic hypercapnic respiratory failure on 3-4 L supplemental O2, AAA s/p repair, aortic stenosis, history of CVA, history of DVT no longer on anticoagulation, hyperlipidemia, GERD, CAD admitted for further management of acute fracture of the left hip # acute fracture of the left hip due to mechanical fall. She had surgical repair on 02/11/24 without complication. Ortho recommends Physical Therapy for hip hemiarthroplasty: posterior precautions, gait training, ROM, strength Limit stair climbing No showering, no tub bath-keep dressing clean, dry and intact Continue Lovenox once a day x 6 weeks Follow up with [facility] Orthopedics in 2 weeks Hemoglobin is 10.2 today 02/13 and did not require transfusion post op Oxycodone for pain. #Dysphagia --cough with food, family states this is chronic -following MBS, DIRECTOR CARDIAC recommends [place] thick liquid, and ground mechanical -GI Dr. Montes saw her and recommend outpatient Barium swallow with pill and follow up in the GI clinic #Asthma/copd overlap with chronic hypoxemic hypercapnic respiratory failure -continue baseline home with goal of 88 to 94% -no acute exacerbation, continue home inhalers, albuterol p.r.n. # hypertension--continue Lisinopril # CAD -no chest pain, EKG without any acute ischemic changes. Troponin within normal limits -continue aspirin. Continue atorvastatin. Not on beta-bella #HLD--Lipitor DVT prophylaxis- Lovenox for 6 weeks To short term rehab Time Attestation Discharge Coordination Time (in mins): 45 Quality: Safe Use of Opioids Does Pt have an Active Cancer Diagnosis on the Problem List?: No Quality: Stroke Does the patient have a stroke diagnosis?: No Physical Exam Vital Signs: Vital Signs: Selected Entries 02/15/24 07:33 02/15/24 08:21 02/15/24 08:28 Temperature 97.0 F Pulse Rate 64 Respiratory Rate 18 Blood Pressure 108/64 Pulse Oximetry 90 L Oxygen Delivery Me thod Nasal Cannula DS: Data Data Completed and Pending Pending studies at discharge: Pending at discharge 02/10/24 16:48 Surgical [PTH] Routine Labs on day of discharge: Laboratory Results - last 24 hr 02/14/24 05:43 WBC 6.9 RBC 3.77 L Hgb 10.2 L Hct 32.7 L MCV 86.7 MCH 27.1 MCHC 31.2 RDW 17.2 H Plt Count 217 MPV 11.7 Absolute Nucleated RBC 0.000 Nucleated RBC % (auto) 0.0 Discharge Plan Discharge Anticipated Discharge Date/Time: 02/15/24 12:37 Patient Disposition: Xfer SNF Discharge Diagnosis: Left hip fracture, Dysphagia Referrals: [facility] [Outside] Familia Madrigal PA [Physician Market Development Analyst] - 02/28/24 10:00 am ( 02/28/24 at 10am ) Pipe Washburn PA-C [Primary Care Provider] - 1 Week Seun Montes MD [Physician] - 2 Weeks Discharge Medications: New enoxaparin 40 mg/0.4 mL Syringe 40 mg subcut Q24H Qty: 42 0RF oxycodone 5 mg Tablet 5 mg PO Q6H PRN (Reason: pain (scale score 7-10)) Qty: 20 0RF Rx Instructions: Partial Fill upon patient request. acetaminophen 325 mg Tablet 650 mg PO Q6H PRN (Reason: pain (scale score 4-6)) Qty: 30 0RF Continued nitroglycerin 0.4 mg tablet, sublingual 0.4 mg sublingual Q5M PRN (Reason: chest pain) Qty: 30 1RF Rx Instructions: do not exceed 3 doses per episode omeprazole 20 mg capsule,delayed release(DR/EC) 20 mg PO BID@0630,1630 albuterol sulfate 2.5 mg /3 mL (0.083 %) solution for nebulization 2.5 mg inhalation Q6H PRN (Reason: SOB) albuterol sulfate 90 mcg/actuation HFA aerosol inhaler 2 inh inhalation Q4H PRN (Reason: shortness of breath or wheezing) Creon 24,000-76,000 -120,000 unit capsule,delayed release(DR/EC) 1 cap PO TIDAC Rx Instructions: administer with meals and/or snacks metoclopramide HCl 10 mg Tablet 10 mg PO Q6H PRN (Reason: nausea or vomiting) atorvastatin 80 mg tablet 80 mg PO DAILY latanoprost 0.005 % drops 1 drp ophthalmic (eye) BEDTIME Rx Instructions: One eye drop in each eye at bedtime. (DME) [facility] See Rx Instructions .Route Rx Instructions: As directed cyanocobalamin (vitamin B-12) 1,000 mcg tablet 1,000 mcg PO DAILY cholecalciferol (vitamin D3) 25 mcg (1,000 unit) tablet 25 mcg PO DAILY fluticasone propion-salmeterol [Advair HFA] 115-21 mcg/actuation HFA aerosol inhaler 2 puff inhalation Q12H 30 Days Qty: 12 11RF lisinopril 10 mg tablet 10 mg PO DAILY calcium carbonate 500 mg calcium (1,250 mg) tablet 500 mg PO BID aspirin [Adult Aspirin Regimen] 81 mg tablet,delayed release (DR/EC) 81 mg PO DAILY Discharge Orders: Discharge Order (Routine); Ordered 02/15/24 Ordered By: Jonathon Be Diet: see below Activity on Discharge: Use cane or walker Stand Alone Forms: Patient Portal Discharge page Print Language: Korean Other Ambulatory Orders: [place] barium swallow (Routine) Timeframe: 1 Week Facility: [facility] - Location: Radiology Ordered By: Jonathon Be Activity Restrictions/Additional Instructions: P Care Plan Goals: Recovery from Hip from hip fracture Health Concerns: hip fracture chronic respiratory failure due to copd Plan of Treatment: Physical Therapy for hip hemiarthroplasty: posterior precautions, gait training, ROM, strength Limit stair climbing No showering, no tub bath-keep dressing clean, dry and intact Continue Lovenox once a day x 6 weeks Follow up with [facility] Orthopedics in 2 weeks to short term rehab Diet: Food consistencies: Ground/Mechanical Altered (NDD2) Liquid consistency: [place] Thick and to eat with dentures To have outpatient Barium Swallow with Pill and GI follow up with Dr. Montes Assessment: see above
--- NOTE | 2024-02-14 12:33 | HO.PM.IMPN ---
Subjective Subjective Date of Service: 02/14/24 Interval History: f/u hip fracture hip repair done 02/09 i feel a lot better , no sob Physical Exam Vital Signs: Vital Signs: Last Vital Signs Temp 97.8 F 02/14/24 12:00 Pulse 90 02/14/24 12:00 Resp 16 02/14/24 12:00 BP 127/76 02/14/24 12:00 Pulse Ox 90 L 02/14/24 12:00 O2 Del Method Nasal Cannula 02/14/24 12:00 O2 Flow Rate 3 02/14/24 12:00 Oxygen Flow Rate 3 02/08/24 11:19 BMI result Body Mass Index 21.7 General: AO X , no acute distress Resp: CTA bilateral CVS: S1,S2,RRR GI: +BS, NT, no distention Skin: surgery site, dry clean and intact Neuro: motor grossly intact Psych: appropriate affect Objective Data Active Medications Acetaminophen (Acetaminophen 325 Mg Tablet) 650 mg PO Q6H PRN PRN Reason: Pain, Mild (Pain Scale 1-3), fever or headache Last Admin: 02/12/24 08:57 Dose: 650 mg Documented By: GORDY Albuterol Sulfate (Albuterol Sulfate (0.083%) 2.5 Mg/3 Ml Vial.Neb) 2.5 mg INHALE Q6H PRN PRN Reason: Shortness of Breath Last Admin: 02/11/24 04:28 Dose: 2.5 mg Documented By: LAMIN Albuterol Sulfate (Albuterol Sulfate 90 Mcg 8 Gm Inhaler) 2 puff INHALE Q4H PRN PRN Reason: shortness of breath or wheezing Lipase/Protease/Amylase (Lipase/Prot/Amylase 24/76/120k 1 Cap Capsule.) 1 cap PO TIDAC [facility] Last Admin: 02/14/24 11:12 Dose: 1 cap Documented By: STIVEN Aspirin (Aspirin Enteric Coated 81 Mg Tablet.) 81 mg PO DAILY [facility] Last Admin: 02/14/24 07:35 Dose: 81 mg Documented By: JIMENA Atorvastatin Calcium (Atorvastatin Calcium 80 Mg Tablet) 80 mg PO DAILY [facility] Last Admin: 02/14/24 07:35 Dose: 80 mg Documented By: JIMENA Calcium Carbonate (Calcium Carbonate 750 Mg Tab.Chew) 750 mg PO Q4H PRN PRN Reason: Heartburn Calcium Carbonate (Calcium Oyster Shell Elemental 500 Mg Tablet) 500 mg PO BID [facility] Last Admin: 02/14/24 07:34 Dose: 500 mg Documented By: JIMENA Cyanocobalamin (Cyanocobalamin (Vitamin B-12) 1,000 Mcg Tablet) 1,000 mcg PO DAILY [facility] Last Admin: 02/14/24 07:34 Dose: 1,000 mcg Documented By: JIMENA Enoxaparin Sodium (Enoxaparin Sodium 40 Mg/0.4 Ml Syringe) 40 mg SUBCUT Q24H [facility] Last Admin: 02/14/24 07:34 Dose: 40 mg Documented By: JIMENA Fluticasone/Vilanterol (Fluticasone/Vilanterol 100/25 Blst.W.Dev) 1 puff INHALE RDAILY [facility] Last Admin: 02/14/24 08:08 Dose: 1 puff Documented By: ASHA Cefazolin Sodium/Dextrose (Ancef) 2 gm in 50 mls @ 100 mls/hr IV POSTOP [facility] Latanoprost (Latanoprost 0.005 % Ophth Phoebe 2.5 Ml Drops) 1 drop EYE-BOTH BEDTIME [facility] Last Admin: 02/13/24 21:45 Dose: 1 drop Documented By: RAMU Lisinopril (Lisinopril 10 Mg Tablet) 10 mg PO DAILY [facility]; Protocol Last Admin: 02/14/24 07:35 Dose: 10 mg Documented By: JIMENA Magnesium Hydroxide (Milk Of Magnesia 30 Ml Oral.Susp) 30 ml PO DAILY PRN PRN Reason: Constipation Last Admin: 02/14/24 11:12 Dose: 30 ml Documented By: STIVEN Melatonin (Melatonin 3 Mg Tablet) 6 mg PO BEDTIME PRN PRN Reason: Insomnia Last Admin: 02/08/24 21:01 Dose: 6 mg Documented By: LAY-FLORENTIN Metoclopramide HCl (Metoclopramide Hcl 10 Mg Tablet) 10 mg PO Q6H PRN PRN Reason: nausea or vomiting Last Admin: 02/13/24 08:13 Dose: 10 mg Documented By: FOGARTMarc Nitroglycerin (Nitroglycerin 0.4 Mg Tab.Subl) 0.4 mg SUBLINGUAL Q5M PRN PRN Reason: chest pain Omeprazole (Omeprazole 20 Mg Lucas.) 20 mg PO BID@0630,1630 [facility] Last Admin: 02/14/24 06:10 Dose: Not Given Documented By: ANGELINE Non-Admin Reason: Patient Condition Contraindication Comments: needs crushed Oxycodone HCl (Oxycodone Hcl Immed Release 5 Mg Tablet) 5 mg PO Q6H PRN PRN Reason: Pain, Moderate(Pain Scale 4-6) Last Admin: 02/14/24 07:34 Dose: 5 mg Documented By: JIMENA Sodium Chloride (0.9 % Sodium Chloride Flush 3 Ml Syringe) 3 ml IVFLUSH QSHIFT [facility] Last Admin: 02/14/24 07:29 Dose: 3 ml Documented By: JIMENA Vitamin D (Cholecalciferol (Vitamin D3) 25 Mcg Tablet) 25 mcg PO DAILY [facility] Last Admin: 02/14/24 07:34 Dose: 25 mcg Documented By: JIMENA Labs 02/14/24 05:43 02/13/24 06:17 Labs: Laboratory Results - last 24 hr 02/14/24 05:43 MCV 86.7 MCH 27.1 MCHC 31.2 RDW 17.2 H Plt Count 217 MPV 11.7 Absolute Nucleated RBC 0.000 Nucleated RBC % (auto) 0.0 Assessment and Plan (1) Schaefer cyst: Status: Acute Plan 70-year-old female with history of hypertension, asthma/COPD overlap with chronic hypoxemic hypercapnic respiratory failure on 3-4 L supplemental O2, AAA s/p repair, aortic stenosis, history of CVA, history of DVT no longer on anticoagulation, hyperlipidemia, GERD, CAD admitted for further management of acute fracture of the left hip # acute fracture of the left hip due to mechanical fall. She had surgical repair on 02/11/24 ailynhout complication. Ortho recommends Physical Therapy for hip hemiarthroplasty: posterior precautions, gait training, ROM, strength Limit stair climbing No showering, no tub bath-keep dressing clean, dry and intact Continue Lovenox once a day x 6 weeks Follow up with [facility] [place] [facility]ics in 2 weeks Hemoglobin is 10.2 today 8 and did not require transfusion post op Oxycodone for pain. #Dysphagia --cough with food, family states this is chronic -following MBS, ELECTRICAL INSTRUMENTATION TECHNICIAN recommends [place] thick liquid, and ground mechanical #Asthma/copd overlap with chronic hypoxemic hypercapnic respiratory failure -continue baseline home with goal of 88 to 94% -no acute exacerbation, continue home inhalers, albuterol p.r.n. # hypertension--contiunue Lisinopril # CAD -no chest pain, EKG without any acute ischemic changes. Troponin within normal limits -continue aspirin. Continue atorvastatin. Not on beta-bella #HLD--Lipitor DVT prophylaxis- Lovenox To short term rehab to day if bed available Quality Stroke Does the patient have a stroke diagnosis?: No VTE Prior VTE?: No VTE Risk Level:: Medical - moderate - high VTE Device Contraindication: N/A - Device Ordered VTE Drug Contraindication: Treatment Not Indicated
--- NOTE | 2024-02-14 14:12 | MHC.SL.SWA ---
Speech Pathologist Impression: Risk of aspiration, oropharyngeal dysphagia Risk of Aspiration Due to: Medically Fragile Neurological Condition Dysphasia Diet Status: No changes at this time Liquid Consistency and Strategies for Safe Swallow: Liquid Intake Recommendation: [place] Thick Liquid Intake Strategies: Small Sips Solid Food Consistency: Dietary Recommendations: Grnd/Mech Altered (NDD2) Additional Modifications to Solid Foods: Dry swallow between bites Oral Medication Intake: Crushed with Puree Please contact the pharmacy regarding appropriate crushable or liquid drug formulations that are available whenever modified delivery is recommended. Compensatory Strategies and Precautions to be Taken for Safe Swallow: Sitting Upright (90 deg) Double Swallow Small Bites and Sips Alternate Liquids/Solids Rate of Ingestion Change Avoid Specific Foods Supervision While Eating and Drinking for Safe Swallow: Total Supervision (1:1) Foods to Avoid: Hard, dry or crunchy foods; mixed textures Swallowing Recommended Treatments: Compens. Strategy Educat. Recommendation for Speech: Inpatient Speech Therapy Comment: Intake Recommendations: Route: PO Diet Grade: Mechanical Soft Liquid Consistencies: [place] Post-Study Functional Oral Intake Scale (FOIS): 5- Total oral intake of multiple consistencies requiring special preparation Note penetration above vocal folds with piece of cookie, which patient was able to clear with a dry swallow. There was penetration to the vocal folds with thin liquids. Patient did not elicit a spontaneous cough or throat clear. She was cued to produce a volitional cough and dry swallows, which did not eject contrast coating the trachea and posterior epiglottis. No evidence of aspiration during this exam, however, patient was unable to clear thin contrast coating the trachea, putting patient at risk for aspiration after the swallow. Slow and delayed oral phase characterized by repetitive tongue pumping and disorganized chewing with solid pieces of food visualized. Recommend start on GROUND/MECH ALTERED (NDD2) diet and NECTAR THICK liquids, with pills CRUSHED in PUREE. Patient will need DIRECT SUPERVISION for all PO intake due to impulsivity and observed unsafe eating behaviors. The following precautions are recommended to increase safety: -upright 90 degree position when eating and drinking and for at least 30 minutes afterwards -small bites -moisten foods with sauces and gravies which are nectar thick or honey thick -chew food well -one bite at a time, clear oral cavity before taking next bite -dry swallow between bites -alternate bites with sips of liquid -small individual sips -avoid quick, sequential sips MILK ROUTE DELIVERER will continue to follow to monitor patient?s tolerance of modified diet and to provide further education and support in regards to recommended strategies/precautions. Therapy Recommendations: Therapy will be continued Yardage Caller Goals: ? The patient will tolerate the least restrictive diet with a safe/efficient swallow to maintain adequate nutrition and hydration. ? The patient and/or family will participate in further education for swallowing goals. Short Term Goals: ? Diet - The patient will tolerate a mechanical soft diet with nectar thick liquids without signs or symptoms of penetration/aspiration 100% of the time. - The patient will participate in therapeutic PO trials with the MILK ROUTE DELIVERER. ? Guidelines - The patient will comply with/recall the following guidelines/strategies 100% of the time with minimal cuing: [place]-thick Liquid, Bolus Volume Change, Rate of Ingestion Change, Additional Swallow(s) per Bolus. ? Education - The patient, family, caregiver will verbalize/demonstrate understanding of the results of this evaluation, the above recommendations, and the swallowing guidelines. Frequency/Duration: M-F PRN Date Range for Service Req: Timeline to reassess: Flatbed Truck Driver Clinican/Clinical Fellow: No Supervisory Statement: I have reviewed and agree with the student/clinical fellow's documentation: N/A Speech Language Pathologist: Shasta Tinoco M.A., [facility]-MILK ROUTE DELIVERER
[2024-02-14] MEDS: Omeprazole 20 MG CAPSULE.DR PO (17:07)
[2024-02-14] MEDS: Latanoprost 0.005 % Ophth Sol 2.5 ML DROPS 1 DROP EYE-BOTH (19:34)
[2024-02-14] MEDS: Melatonin 3 MG TABLET 6 MG PO (23:56)
[2024-02-15 03:50] VITALS: BP 108/60; PULSE 88; RESP 16; TEMP 36.9; O2SAT 92
[2024-02-15] MEDS: Omeprazole 20 MG CAPSULE.DR PO (06:02)
[2024-02-15] MEDS: oxyCODONE HCl Immed Release 5 MG TABLET PO ×2 (06:02→12:55)
[2024-02-15 06:17] LABS: Hematocrit 31.7 % (37.0-47.0); Hemoglobin 9.7 g/dl (12.0-16.0); Mean Corpuscular HGB Conc 30.6 g/dl (31.0-35.0); Mean Corpuscular Hemoglobin 26.4 pg (27.0-33.0); Mean Corpuscular Volume 86.1 fL (80.0-98.0); Mean Platelet Volume 11.7 fL (9.4-12.3); Platelet Count 217 X10*3/uL (160-400); Red Blood Count 3.68 X10*6/uL (4.20-5.50); Red Cell Distribution Width 17.2 % (11.0-16.0); White Blood Count 7.8 X10*3/uL (4.8-10.8)
[2024-02-15 07:33] VITALS: BP 108/64; PULSE 85; RESP 16; TEMP 36.1; O2SAT 90
[2024-02-15] MEDS: Lipase/Prot/Amylase 24/76/120K 1 CAP CAPSULE.DR PO ×2 (07:42→12:23)
[2024-02-15] MEDS: Aspirin Enteric Coated 81 MG TABLET.DR PO (07:42)
[2024-02-15] MEDS: Calcium Oyster Shell Elemental 500 MG TABLET PO (07:42)
[2024-02-15] MEDS: Atorvastatin Calcium 80 MG TABLET PO (07:43)
[2024-02-15] MEDS: Cholecalciferol (Vitamin D3) 25 MCG TABLET PO (07:43)
[2024-02-15] MEDS: Cyanocobalamin (Vitamin B-12) 1,000 MCG TABLET 1000 MCG PO (07:43)
[2024-02-15] MEDS: lisinopriL 10 MG TABLET PO (07:43)
[2024-02-15] MEDS: Enoxaparin Sodium 40 MG/0.4 ML SYRINGE SUBCUT (07:43)
[2024-02-15] MEDS: Acetaminophen 325 MG TABLET 650 MG PO (07:43)
[2024-02-15] MEDS: 0.9 % Sodium Chloride Flush 3 ML SYRINGE IVFLUSH (07:48)
[2024-02-15] MEDS: Fluticasone/Vilanterol 100/25 BLST.W.DEV 1 PUFF INHALE (08:20)
[2024-02-15 08:21] VITALS: PULSE 64; RESP 18; O2SAT 90
[2024-02-15 08:28] VITALS: PULSE 64
--- NOTE | 2024-02-15 09:32 | MHC.CM.PN ---
Addendum entered by Elise Mauro 02/15/24 13:13: DP: PT HAS BEEN MEDICALLY CLEARED FOR DC TO STR AT [facility]. BLS TRANSPORT AT 3 PM. HCP ALVIN UPDATED ON PLAN PER REQUEST OF PT. Original Note: [facility] HAS OBTAINED INSURANCE AUTH AND PT HAS BEEN BOOKED FOR 3 PM VIA BLS/XIN. [facility] TRANSPORTATION AUTH OBTAINED, BOOKING ID # [id number]. /RN UPDATED.
--- NOTE | 2024-02-15 09:51 | W.PM.OPN ---
Operative Note Operative Note Date of Service: 02/10/24 Narrative: Date of Service: 02/10/24 Pre-op diagnosis: left femoral neck fracture Post-op diagnosis: same Procedure: left hip pepper Implants: [id number] Alfredo #[id number] with +0/26/46 bipolar Surgeon: Cj Armijo MD Anesthesia: local and spinal Was an Hydroelectric Machinery Mechanic Helper used for this Procedure?: No Hydroelectric Machinery Mechanic Helper: Nadira Delacruz Estimated blood loss (mL): 200 IV fluids (mL): 600 Pathology: other Condition: stable Disposition: PACU Procedure in detail: Patient was brought to the operative room placed in the lateral decubitus position. All bony prominences were well padded and the was prepped and draped in standard sterile fashion. IV antibiotics per weight were administered and a time-out was called to identify proper site proper procedure proper surgeon. Radiographs were available and confirmed. I began by making a curvilinear incision over the posterolateral aspect of the greater trochanter. Dissection was taken down to the tensor fascia which was incised in line with the incision and a Charnley retractor was placed. The hip was internally rotated and the external rotators were identified. All vessels in the area were cauterized and a full-thickness capsular/external rotator layer was developed in a hockey-stick fashion starting just proximal to the piriformis. This layer was tagged and the displaced femoral neck fracture was identified. Clean-up cuts was performed while protecting the posterolateral soft tissues and the head was removed and measured (46 mm) on the back table. I then copiously irrigated the acetabulum and removed all bony fragments. Once this was done I used a cookie cutter to lateralize and a Charnley awl to identify the canal and then sequentially broached up to a 127 deg #5. I then trialed with a standard head and a bipolar component matching the femoral head size. I was satisfied with the range of motion and stability and length. Therefore I removed all instrumentation and copiously irrigated. I then placed my final femoral implant and then retrialed. I was satisfied with the+0/46 implants. My final bipolar components were then placed. I closed the capsular layer with FiberWire and irrigated copiously, I performed a layered closure with heidi on skin. The patient was placed in sterile dressing extubated brought to recovery room in stable condition there were no known complications.
--- NOTE | 2024-02-15 11:05 | MHC.SL.DTX ---
Dysphagia Diet modifications: Last documented Solid diet consistencies: Grnd/Mech Altered (NDD2) Last documented Liquid consistency: [place] Thick Last documented Medication Administration:NPO Changes made to current diet?: No: No changes at this time Liquid Consistency and Strategies: Liquid Intake Recommendation: [place] Thick Compensatory Strategies for Safe Swallow: Small Sips Compensatory Strategies for Safe Swallow(b): Sitting Upright (90 deg) Double Swallow Small Bites and Sips Alternate Liquids/Solids Rate of Ingestion Change Avoid Specific Foods Solid Food Consistency: Dietary Recommendations: Grnd/Mech Altered (NDD2) Additional Modifications to Solids: Dry swallow between bites Oral Medication Intake: Crushed with Puree Strategies and Precautions to be Taken for Safe Swallow: Sitting Upright (90 deg) Double Swallow Small Bites and Sips Alternate Liquids/Solids Rate of Ingestion Change Avoid Specific Foods Supervision While Eating and/Drinking: Total Supervision (1:1) Foods to Avoid: Hard, dry or crunchy foods; mixed textures Swallowing Recommended Treatments: Compens. Strategy Educat. Prognosis for Improvement: Guarded Recommendation for Speech: Inpatient Speech Therapy Comment: Intake Recommendations: Route: PO Diet Grade: Mechanical Soft Liquid Consistencies: Seltzer Post-Study Functional Oral Intake Scale (FOIS): 5- Total oral intake of multiple consistencies requiring special preparation Frequency/Duration: M-F PRN Date Range for Service Req: Additional Comments: Treatment: Pt is seen this morning in distress. She has an emesis bag in front of her and is hiccuping, stating that she feels like she will throw-up. She reports that she only had a few bites of eggs off of her breakfast tray. She declines offering of any solid PO stating that she thinks it will cause her to be sick. She does agree to trial Ice Chips only, which she tolerates with no overt s/s of aspiration, however more frequent gastrointestinal distress. She declines any further trials of Thin Liquids at this time, but states that she may be willing to try more later today. Assessment: Industrial Safety And Health Specialist Clinican/Clinical Fellow: No Supervisory Statement: I have reviewed and agree with the student/clinical fellow's documentation: N/A Speech Language Pathologist: Sage South M.A., CCC-ENGINEERING AIDE
[2024-02-15 12:00] VITALS: BP 108/64; PULSE 78; RESP 16; TEMP 36.4; O2SAT 92
--- NOTE | 2024-02-15 12:07 | P.CNGI_ITS ---
History of Present Illness Data of Consult Service Date: 02/15/24 Requesting physician: [facility] Primary Care Provider: Pipe Washburn PA-C HPI Reason for consult: oral phayrngeal dysphagia 70-year-old female with history of hypertension, asthma/COPD overlap with chronic hypoxemic hypercapnic respiratory failure on 3-4 L supplemental O2, AAA s/p repair, aortic stenosis, history of CVA, history of DVT no longer on anticoagulation, hyperlipidemia, GERD, CAD who I am seeing for assessment for dysphagia Patient initially presented with a left femoral neck # and had surgery for this 02/11/24. During her recovery she mentioned to primary team issues with choking and swalloing for long time about 3 yrs or so. She has dentures but does not like wearing them when eating. 4-5 times/week she will gag on liquids and will eat solids that get stuck in lower chest which she will regurgitate and spit out. She was told she has a hiatal hernia but unable to recall details She denies melena, or rectal bleeding, and denies weight loss, or abdominal pain. She has severe gerd but takes omeprazole BID which helps. She had MBS with SALT recs given for mechinical soft, nectar foods due to findings of aspiration. Today going to SNF for rehab Review of Systems 2 Review of Systems: Constitutional : No Weight loss, No Fever, No Chills ENT/Mouth : No sore throat, No Rhinorrhea Eyes: No Swelling, No Redness Cardiovascular : No Chest Pain, +SOB, No Edema Respiratory : No Cough, No Sputum, No Wheezing Gastrointestinal : see HPI Genitourinary : NO Dysuria, No Urinary Frequency, No Hematuria, No Urgency Musculoskeletal : + joint pain, No Myalgias, No Joint Swelling Skin : No Skin Lesions, No rash Neuro : + Weakness, No Numbness, No Dizziness, No Headache Psych : No Anxiety/Panic, No Depression Heme/Lymph: No Bruising, No Lymphadenopathy Endocrine : No Polyuria, No Polydipsia All other systems reviewed and are negative. [facility] Past Medical History Medical History COPD (chronic obstructive pulmonary disease) Left ulnar fracture COPD (chronic obstructive pulmonary disease) COVID-19 Early satiety Abdominal bloating COPD exacerbation Essential hypertension Precordial chest pain Tachycardia Dyspnea CVA (cerebral vascular accident) Atherosclerotic cardiovascular disease Psoriasis Hydroureter, right Pernicious anemia Raynauds disease Hernia Emphysema lung Emphysema of lung Asthma History of pyloric channel ulcer Glaucoma Mild acid reflux Family History Family History Father No problems noted. Mother No problems noted. Sister No problems noted. Sister No problems noted. Sister No problems noted. Sister No problems noted. Sister Cancer Son No problems noted. Surgical History Surgical History S/P cardiac catheterization H/O carotid endarterectomy (04/01/20) History of AAA (abdominal aortic aneurysm) repair Hx of shoulder surgery Hx of varicose vein stripping Social History Social History Household Members: None Housing: House Do you presently have visiting nurse or other home services: Yes Unable to assess alcohol history related to: Unable to respond Alcohol intake: never Patient Tobacco Use Status: Former Tobacco user Tobacco use type: Cigarette Years Smoked: 65 e-Cigarette/Vaping Use: Never Used Second Hand Smoke Exposure: No Advance Directives Date on File: 06/11/21 service: No Current occupational status: retired Cognitive needs: Yes Hearing needs: No Vision needs: Yes Meds Allergies Allergy/AdvReac Type Severity Reaction Status Date / Time No Known Allergies Allergy Verified 02/08/24 11:22 Active Medications: Current Medications Acetaminophen (Acetaminophen 325 Mg Tablet) 650 mg PO Q6H PRN PRN Reason: Pain, Mild (Pain Scale 1-3), fever or headache Last Admin: 02/15/24 07:43 Dose: 650 mg Albuterol Sulfate (Albuterol Sulfate (0.083%) 2.5 Mg/3 Ml Vial.Neb) 2.5 mg INHALE Q6H PRN PRN Reason: Shortness of Breath Last Admin: 02/11/24 04:28 Dose: 2.5 mg Albuterol Sulfate (Albuterol Sulfate 90 Mcg 8 Gm Inhaler) 2 puff INHALE Q4H PRN PRN Reason: shortness of breath or wheezing Lipase/Protease/Amylase (Lipase/Prot/Amylase 24/76/120k 1 Cap Capsule.) 1 cap PO TIDAC [facility] Last Admin: 02/15/24 07:42 Dose: 1 cap Aspirin (Aspirin Enteric Coated 81 Mg Tablet.) 81 mg PO DAILY [facility] Last Admin: 02/15/24 07:42 Dose: 81 mg Atorvastatin Calcium (Atorvastatin Calcium 80 Mg Tablet) 80 mg PO DAILY [facility] Last Admin: 02/15/24 07:43 Dose: 80 mg Calcium Carbonate (Calcium Carbonate 750 Mg Tab.Chew) 750 mg PO Q4H PRN PRN Reason: Heartburn Calcium Carbonate (Calcium Oyster Shell Elemental 500 Mg Tablet) 500 mg PO BID [facility] Last Admin: 02/15/24 07:42 Dose: 500 mg Cyanocobalamin (Cyanocobalamin (Vitamin B-12) 1,000 Mcg Tablet) 1,000 mcg PO DAILY [facility] Last Admin: 02/15/24 07:43 Dose: 1,000 mcg Enoxaparin Sodium (Enoxaparin Sodium 40 Mg/0.4 Ml Syringe) 40 mg SUBCUT Q24H [facility] Last Admin: 02/15/24 07:43 Dose: 40 mg Fluticasone/Vilanterol (Fluticasone/Vilanterol 100/25 Blst.W.Dev) 1 puff INHALE RDAILY [facility] Last Admin: 02/15/24 08:20 Dose: 1 puff Cefazolin Sodium/Dextrose (Ancef) 2 gm in 50 mls @ 100 mls/hr IV POSTOP [facility] Latanoprost (Latanoprost 0.005 % Ophth Phoebe 2.5 Ml Drops) 1 drop EYE-BOTH BEDTIME [facility] Last Admin: 02/14/24 19:34 Dose: 1 drop Lisinopril (Lisinopril 10 Mg Tablet) 10 mg PO DAILY [facility]; Protocol Last Admin: 02/15/24 07:43 Dose: 10 mg Magnesium Hydroxide (Milk Of Magnesia 30 Ml Oral.Susp) 30 ml PO DAILY PRN PRN Reason: Constipation Last Admin: 02/14/24 11:12 Dose: 30 ml Melatonin (Melatonin 3 Mg Tablet) 6 mg PO BEDTIME PRN PRN Reason: Insomnia Last Admin: 02/14/24 23:56 Dose: 6 mg Metoclopramide HCl (Metoclopramide Hcl 10 Mg Tablet) 10 mg PO Q6H PRN PRN Reason: nausea or vomiting Last Admin: 02/13/24 08:13 Dose: 10 mg Nitroglycerin (Nitroglycerin 0.4 Mg Tab.Subl) 0.4 mg SUBLINGUAL Q5M PRN PRN Reason: chest pain Omeprazole (Omeprazole 20 Mg Capsule.Dr) 20 mg PO BID@0630,1630 [facility] Last Admin: 02/15/24 06:02 Dose: 20 mg Oxycodone HCl (Oxycodone Hcl Immed Release 5 Mg Tablet) 5 mg PO Q6H PRN PRN Reason: Pain, Moderate(Pain Scale 4-6) Last Admin: 02/15/24 06:02 Dose: 5 mg Sodium Chloride (0.9 % Sodium Chloride Flush 3 Ml Syringe) 3 ml IVFLUSH QSHIFT [facility] Last Admin: 02/15/24 07:48 Dose: 3 ml Vitamin D (Cholecalciferol (Vitamin D3) 25 Mcg Tablet) 25 mcg PO DAILY [facility] Last Admin: 02/15/24 07:43 Dose: 25 mcg Home Medications ?Medication ?Instructions ?Recorded ?Confirmed ?Last Taken ?Type atorvastatin 80 mg tablet 80 mg PO DAILY 04/18/20 02/08/24 02/08/24 History latanoprost 0.005 % eye drops 1 drp ophthalmic (eye) BEDTIME 07/02/22 02/08/24 Unknown History lisinopril 10 mg tablet 10 mg PO DAILY 10/16/22 02/08/24 02/08/24 History nebulizers 12/18/22 01/26/24 02/08/24 09:00 History calcium carbonate 500 mg PO BID 06/24/23 02/08/24 02/08/24 History aspirin 81 mg tablet,delayed 81 mg PO DAILY 10/27/23 02/08/24 02/08/24 History release (Adult Aspirin Regimen) cholecalciferol (vitamin D3) 25 25 mcg PO DAILY 12/22/23 02/08/24 02/08/24 History mcg (1,000 unit) tablet cyanocobalamin (vitamin B-12) 1,000 mcg PO DAILY 12/22/23 02/08/24 02/08/24 History 1,000 mcg tablet albuterol sulfate 2.5 mg/3 mL 2.5 mg inhalation Q6H PRN SOB 02/08/24 02/08/24 Unknown History (0.083 %) solution for nebulization albuterol sulfate 90 mcg/actuation 2 inh inhalation Q4H PRN shortness 02/08/24 02/08/24 Unknown History aerosol inhaler of breath or wheezing [id number] 1 cap PO TIDAC 02/08/24 02/08/24 02/08/24 History 24,000-76,000-120,000 unit capsule,delayed rel (Creon) metoclopramide HCl 10 mg tablet 10 mg PO Q6H PRN nausea or vomiting 02/08/24 02/08/24 Unknown History omeprazole 20 mg capsule,delayed 20 mg PO BID@0630,1630 02/08/24 02/08/24 02/08/24 History release Physical Exam 2 Vital Signs: Vital Signs: Last Vital Signs Temp 97.0 F 02/15/24 07:33 Pulse 64 02/15/24 08:28 Resp 18 02/15/24 08:21 BP 108/64 02/15/24 07:33 Pulse Ox 90 L 02/15/24 07:33 O2 Del Method Nasal Cannula 02/15/24 07:33 O2 Flow Rate 3 02/15/24 07:33 Oxygen Flow Rate 3 02/08/24 11:19 BMI result Body Mass Index 21.7 EXAM: GENERAL: The patient is frail, VITAL SIGNS:see workflow HEENT: Nonicteric sclerae, PERRLA, EOMI. Oropharynx clear. Moist mucous membranes. Conjunctivae appear pale. No thyroid mass. CHEST: Chest wall is nontender. HEART: Regular rate and rhythm without murmurs. LUNGS: Clear to auscultation bilaterally. ABDOMEN: Soft, positive bowel sounds, nontender, no organomegaly.no flank tenderness SKIN: No rash, no excessive bruising, petechiae, or purpura. NEUROLOGIC: Cranial nerves II-XII intact without motor/sensory deficit. Psych: normal affect Results Labs 02/15/24 05:28 02/13/24 06:17 Labs: Short CBC 02/15/24 Range/Units 05:28 WBC 7.8 (4.8-10.8) X10*3/uL Hgb 9.7 L (12.0-16.0) g/dl Hct 31.7 L (37.0-47.0) % Plt Count 217 (160-400) X10*3/uL Imaging CT scan - head: Attestation: I personally reviewed and interpreted this imaging study as follows: (ischemic changes, parietal lobe infarct) Assessment and Plan (1) Dysphagia: Status: Acute Plan 1/ PResumed oral pharyngeal dysphagia from combination of prior CVA< denture non compliance, may have an esophgeal stricture as well, but per her report sx are intermittent and sometimes she is able to swallow normal. PLAN: 1/ Recommend ba swallow with pill to get an idea on anatomy and appearance of upper GI 2/ high dose ppi for 3 months 3/ if ba swallow pos then EGD 4/ compliance with dentures 5/ if going to Snf can f/u in GI office for further help Procedures Date of Service Date of Service: 02/15/24
== END 2024-02-15 15:06 | disposition skilled nursing facility (03) | DRG 521 ==
LOC: HO.ED 14:12 → HO.EDOVER 17:04 → HO.IMC 18:19 → HO.S3 02-09 21:30
PROVIDERS: Orthopaedic Surgery; Physician Assistant; Admitting Provider Physician Assistant; Emergency Provider Emergency Medicine; PCP Physician Assistant; Visit Provider Internal Medicine
PROC: (CPT 27125; principal; 2024-02-10 15:30)
DX: S72.002A Fracture of unspecified part of neck of left femur, initial encounter for closed fracture (principal); J96.21 Acute and chronic respiratory failure with hypoxia; J96.22 Acute and chronic respiratory failure with hypercapnia; J45.909 Unspecified asthma, uncomplicated; R13.10 Dysphagia, unspecified; I10 Essential (primary) hypertension; J43.9 Emphysema, unspecified; W19.XXXA Unspecified fall, initial encounter; D64.9 Anemia, unspecified; Z99.81 Dependence on supplemental oxygen; E78.5 Hyperlipidemia, unspecified; I25.10 Atherosclerotic heart disease of native coronary artery without angina pectoris; I35.0 Nonrheumatic aortic (valve) stenosis; Z79.01 Long term (current) use of anticoagulants; Z79.51 Long term (current) use of inhaled steroids; Z79.82 Long term (current) use of aspirin; Z79.899 Other long term (current) drug therapy
CPT/HCPCS: 36415; 70450; 71045; 74230; 80048; 80053; 82803; 82947; 83880; 84484; 85014; 85018; 85025; 85027; 85610; 86850; 86900; 86901; 86923; 88305; 88311; 92526; 92610; 92611; 93005; 94640; 94660; 97110; 97116; 97162; 97166; 97530; 97535; 99285; C1776; J0690; J1644; J1650; J2270; J2371; J2704; J2795; J2919; J3010; J7120

== ENCOUNTER → 2024-02-08 12:12 | Outpatient (BNV) | payer OTHER, SELFPAY | PROVIDERS: Admitting Provider Physician Assistant; Emergency Provider Emergency Medicine; PCP Physician Assistant; Visit Provider Internal Medicine Cardiovascular Disease | DX: R00.0 Tachycardia, unspecified (principal); I49.3 Ventricular premature depolarization | CPT/HCPCS: 93010 ==

== ENCOUNTER 2024-02-08 13:52 | Outpatient (REF) | payer OTHER, MEDICAID, SELFPAY ==
[2024-02-08 14:41] LABS: Microalbum/Creatinine Ratio Ur 47.7 ug/mg cr (<30)
== END 2024-02-08 13:53 | disposition home or self-care (01) ==
LOC: HO.LNP 13:52
PROVIDERS: Visit Provider Physician Assistant
DX: I10 Essential (primary) hypertension (principal)
CPT/HCPCS: 82043; 82570

== ENCOUNTER 2024-02-08 16:47 | Outpatient (BNV) | payer OTHER, SELFPAY | END 2024-02-11 14:30 | PROVIDERS: Admitting Provider Physician Assistant; Emergency Provider Emergency Medicine; PCP Physician Assistant; Visit Provider Physician Assistant Surgical | DX: R13.10 Dysphagia, unspecified (principal) | CPT/HCPCS: 74230 ==

== ENCOUNTER → 2024-02-08 16:47 | Outpatient (BNV) | payer OTHER, SELFPAY | PROVIDERS: Admitting Provider Physician Assistant; Emergency Provider Emergency Medicine; PCP Physician Assistant; Visit Provider Physician Assistant | DX: E87.29 Other acidosis (principal); J44.1 Chronic obstructive pulmonary disease with (acute) exacerbation | CPT/HCPCS: 99223; 99231; 99232; 99239 ==

== ENCOUNTER → 2024-02-08 16:47 | Outpatient (BNV) | payer OTHER, SELFPAY | PROVIDERS: Admitting Provider Physician Assistant; Emergency Provider Emergency Medicine; PCP Physician Assistant; Visit Provider Orthopaedic Surgery | DX: Z96.649 Presence of unspecified artificial hip joint (principal) | CPT/HCPCS: 27236; 99024; 99223 ==

== ENCOUNTER → 2024-02-08 16:47 | Outpatient (BNV) | payer OTHER, SELFPAY | PROVIDERS: Admitting Provider Physician Assistant; Emergency Provider Emergency Medicine; PCP Physician Assistant; Visit Provider Internal Medicine Gastroenterology | DX: R13.10 Dysphagia, unspecified (principal) | CPT/HCPCS: 99223 ==

== ENCOUNTER 2024-02-28 07:53 | Outpatient (REF) | payer OTHER, SELFPAY ==
--- NOTE | ~2024-02-28 | XR_ITS ---
EXAMINATION: XR HIP, LEFT CLINICAL INFORMATION: Pain. Status post hemiarthroplasty. COMPARISON: Radiograph left hip 02/08/2024. TECHNIQUE: Two views of the left hip. FINDINGS: Left hip hemiarthroplasty. No evidence of mona-hardware or hardware fracture. No increased mona-hardware lucency. No acute fracture or dislocation. Significant soft tissue swelling in the region of the lateral left gluteal region/proximal thigh, most likely postsurgical with overlying skin heidi. Partially seen aortobiiliac stent graft. Scattered vascular calcifications. XR/XR hip LT min 2V IMPRESSION: 1. Left hip hemiarthroplasty with no evidence of hardware failure. 2. No acute fracture or dislocation. 3. Significant soft tissue swelling adjacent to the left hip, most likely postsurgical. Correlation with physical examination and if indicated further evaluation with targeted ultrasound for postsurgical collections, hematomas or abscesses as clinically warranted. Electronically signed by: Nathalie Mclaughlin MD 03/23/2024 12:26 PM EDT
== END 2024-02-28 07:54 | disposition home or self-care (01) ==
LOC: HO.HOSX 07:53
DX: M25.552 Pain in left hip (principal); S72.002D Fracture of unspecified part of neck of left femur, subsequent encounter for closed fracture with routine healing; Z96.649 Presence of unspecified artificial hip joint
CPT/HCPCS: 73502; 99212

== ENCOUNTER 2024-02-28 09:40 | Outpatient (AMB) | payer OTHER, SELFPAY ==
--- NOTE | 2024-02-28 09:43 | MHC.OFFVIS ---
Intake Visit Reasons: PO-2 week appt s/p pepper with NE Intake Note: Bridget is a 78 year old female who presents to the office today for a 2 week appt s/p pepper with NE. Pt states she is feeling well and denies any pain at this time. Pt states she is still currently in rehab and doing well. Allergies No Known Allergies Allergy (Verified 02/28/24 09:43) HPI HPI PO-2 week appt s/p pepper with NE: Details: Patient is a 78-year-old female who presents for 2 week postop evaluation status post left hip hemiarthroplasty with Dr. Armijo, DOS 02/10/2024. Today, the patient reports that she is feeling great, and then the only time she experiences any discomfort as if she ?rolls over in correctly in bed?. The patient states that she has been working with PT and OT to resume ambulation, but this has been complicated by the fact that her oxygen readings drop significantly with ambulation. However, the patient reports that she has great range of motion, and can ambulate without any pain or difficulty. Patient is currently in rehabilitation facility at [facility]. Patient reports no numbness or tingling of the distal left lower extremity. No other acute complaints or concerns at this time. [facility] Medical History COPD (chronic obstructive pulmonary disease) Left ulnar fracture COPD (chronic obstructive pulmonary disease) COVID-19 Early satiety Abdominal bloating COPD exacerbation Essential hypertension Precordial chest pain Tachycardia Dyspnea CVA (cerebral vascular accident) Atherosclerotic cardiovascular disease Psoriasis Hydroureter, right Pernicious anemia Raynauds disease Hernia Emphysema lung Emphysema of lung Asthma History of pyloric channel ulcer Glaucoma Mild acid reflux Surgical History S/P cardiac catheterization H/O carotid endarterectomy (04/01/20) History of AAA (abdominal aortic aneurysm) repair Hx of shoulder surgery Hx of varicose vein stripping Family History Father No problems noted. Mother No problems noted. Sister No problems noted. Sister No problems noted. Sister No problems noted. Sister No problems noted. Sister Cancer Son No problems noted. Social History Household Members: None Housing: House Do you presently have visiting nurse or other home services: Yes Unable to assess alcohol history related to: Unable to respond Alcohol intake: never Patient Tobacco Use Status: Former Tobacco user Tobacco use type: Cigarette Years Smoked: 65 e-Cigarette/Vaping Use: Never Used Second Hand Smoke Exposure: No Advance Directives Date on File: 06/11/21 service: No Current occupational status: retired Cognitive needs: Yes Hearing needs: No Vision needs: Yes Review of Systems Const All systems reviewed & are unremarkable except as noted in HPI and below Physical Exam Extrem Other: On inspection, there is a well-healing incision site on the posterolateral aspect of the left hip, with heidi in place No erythema, edema, ecchymosis noted No active drainage at this time No evidence of infection noted Patient is nontender to palpation of the area above the surgery site Patient is able to flex the left hip to approximately 110 degrees without difficulty Patient is able to externally rotate at the hip without difficulty Distal sensation intact Capillary refill brisk Results Reviewed Results Reviewed: X-rays obtained in the office today and independently reviewed by me, Familia Madrigal PA-C, demonstrate well-approximated prosthesis with no evidence of aseptic hardware loosening. No fracture or acute bony abnormality noted. Assessment & Plan Assessment & Plan (1) Status post hip hemiarthroplasty: Code(s): Z96.649 - Presence of unspecified artificial hip joint Category: Surgical (2) Closed fracture of left hip: Code(s): S72.002A - Fracture of unspecified part of neck of left femur, initial encounter for closed fracture Category: Medical Plan 1. Closed femoral neck fracture of the left hip status post left hip hemiarthroplasty with Dr. Armijo DOS 02/10/2024 Patient is recovering well postoperatively Patient is educated about the typical recovery course Scott are removed at visit today Patient is educated that she should continue to work with PT and OT for judaism of normal function of the left hip Patient is amenable to this plan The patient states it is unclear how long she will be staying at the rehabilitation center, as there are now concerns about her pulmonary function with ambulation Patient will follow-up in 4 weeks with repeat x-rays with Dr. Armijo, sooner with any acute concerns Orders: Orders XR hip LT min 2V Today M25.552 - Pain in left hip Coding Level of Care Code Global (39931) Diagnoses Status post hip hemiarthroplasty Z96.649 Closed fracture of left hip S72.002A
== END 2024-02-28 10:32 | disposition home or self-care (01) ==
LOC: HO.HOS 09:40
PROVIDERS: PCP Physician Assistant
DX: S72.002A Fracture of unspecified part of neck of left femur, initial encounter for closed fracture (principal); Z96.642 Presence of left artificial hip joint
CPT/HCPCS: 99024

== ENCOUNTER 2024-03-24 07:55 | Outpatient (AMB) | payer OTHER, SELFPAY ==
--- NOTE | 2024-03-24 08:06 | A.OFFPC_ITS ---
Vital Signs 03/24/24 08:07 Height 5 ft 4 in Weight 121 lb BMI 20.8 BP 122/70 Blood Pressure Location Lt brachial Position Sitting Pulse 92 Pulse Source Pulse Oximeter Pulse Oximetry (%) 90 L Oxygen Delivery Method Nasal Cannula Intake Visit Reasons: Discharge 03/15 [facility] Allergies No Known Allergies Allergy (Verified 03/24/24 08:07) Tobacco use date assessed: 10/21/23 Fall risk assessment: No Falls in past year Last assessed Fall Risk: 03/24/24 Dental Screening Dental Screen Date: 10/21/23 HPI HPI Comments History of Present Illness Details 78 y/o female patient who [facility]. She was originally admitted @ [facility] on 02/08/24 - 02/15/24 for Left Hip Fracture and COPD Exacerbation. She was then transferred to [facility] on 02/15/24 for Physical therapy and close monitoring of her COPD. She was discharged home on 03/15/24.Today she reports feeling much better, continues to have home nurse visits and Physical therapy. [facility] Medical History COPD (chronic obstructive pulmonary disease) Left ulnar fracture COPD (chronic obstructive pulmonary disease) COVID-19 Early satiety Abdominal bloating COPD exacerbation Essential hypertension Precordial chest pain Tachycardia Dyspnea CVA (cerebral vascular accident) Atherosclerotic cardiovascular disease Psoriasis Hydroureter, right Pernicious anemia Raynauds disease Hernia Emphysema lung Emphysema of lung Asthma History of pyloric channel ulcer Glaucoma Mild acid reflux Surgical History S/P cardiac catheterization H/O carotid endarterectomy (04/01/20) History of AAA (abdominal aortic aneurysm) repair Hx of shoulder surgery Hx of varicose vein stripping Family History Father No problems noted. Mother No problems noted. Sister No problems noted. Sister No problems noted. Sister No problems noted. Sister No problems noted. Sister Cancer Son No problems noted. Social History Household Members: None Housing: House Do you presently have visiting nurse or other home services: Yes Unable to assess alcohol history related to: Unable to respond Alcohol intake: never Patient Tobacco Use Status: Former Tobacco user Tobacco use type: Cigarette Years Smoked: 65 e-Cigarette/Vaping Use: Never Used Second Hand Smoke Exposure: No Advance Directives Date on File: 06/11/21 service: No Current occupational status: retired Cognitive needs: Yes Hearing needs: No Vision needs: Yes Questionnaire PHQ-9 Over the last 2 weeks, how often have you been bothered by any of the following problems? 1. Little interest or pleasure in doing things: not at all 2. Feeling down, depressed, or hopeless: not at all 3. Trouble falling or staying asleep, or sleeping too much: not at all 4. Feeling tired or having little energy: not at all 5. Poor appetite or overeating: not at all 6. Feeling bad about yourself - or that you are a failure or have let yourself or your family down: not at all 7. Trouble concentrating on things, such as reading the newspaper or watching television: not at all 8. Moving or speaking so slowly that other people could have noticed. Or the opposite - being so fidgety or restless that you have been moving around a lot more than usual: not at all 9. Thoughts that you would be better off or of hurting yourself in some way: not at all Total score: 0 Depression Screening Interpretation: Negative Depression Screening Done: Yes 91820 - PHQ-9 Billing: Yes Source: Developed by Drs. Wallace Nathan, Codey Muller and colleagues, with an educational zachary from [employer]. Thrive Questionnaire Date Thrive assessed: 02/09/24 AUDIT C Alcohol Use Questionnaire (AUDIT-C) 1. How often do you have a drink containing alcohol?: Never Total Score: 0 CHARLES-7 AMB Questionnaire CHARLES-7 Date CHARLES - 7 assessed: 10/21/23 Source: Developed by Drs. Wallace Nathan, Codey Muller and colleagues, with an educational zachary from [employer]. Review of Systems Const All systems reviewed & are unremarkable except as noted in HPI and below Physical exam (Primary Care) Vital Signs: Last Vital Signs Pulse 92 03/24/24 08:07 BP 122/70 03/24/24 08:07 Pulse Ox 90 L 03/24/24 08:07 Oxygen Delivery Method Nasal Cannula 03/24/24 08:07 BMI result Body Mass Index 20.8 Tobacco/Smoking Status: Tobacco use Status Tobacco use date assessed 10/21/23 03/24/24 08:13 Patient Tobacco Use Status Former Tobacco user 03/24/24 08:13 Tobacco use type Cigarette 03/24/24 08:13 e-Cigarette/Vaping Use Never Used 03/24/24 08:13 PHQ-9: PHQ-9 Score PHQ-9: Total score 0 03/24/24 08:40 Depression Screening Interpretation: Negative Thrive Assessment: Date of Thrive Assessment Date Thrive assessed 02/09/24 03/24/24 08:13 Const General: cooperative and no acute distress Orientation/consciousness: patient oriented x3 Resp Effort & Inspection: normal respiratory effort and able to speak in complete sentences Cardio Heart sounds: S1 normal heart sound present and S2 normal heart sound present Neuro Other: Walks with a cane. General: patient oriented x3 and moves all extremities Psych Speech and movement: Normal speech and movement present Assessment and Plan Assessment & Plan (1) Status post hip hemiarthroplasty: Code(s): Z96.649 - Presence of unspecified artificial hip joint Plan: Continues to recover at home Mild pain but well controlled on pain medications. Continue f/u with Orthopedics. (2) Closed fracture of left hip: Code(s): S72.002A - Fracture of unspecified part of neck of left femur, initial encounter for closed fracture Qualifiers: Encounter type: initial encounter Qualified Code(s): S72.002A - Fracture of unspecified part of neck of left femur, initial encounter for closed fracture Plan: Continues to recover at home Mild pain but well controlled on pain medications. Continue f/u with Orthopedics. (3) COPD (chronic obstructive pulmonary disease): Code(s): J44.9 - Chronic obstructive pulmonary disease, unspecified Qualifiers: COPD type: emphysema Emphysema type: centrilobular Qualified Code(s): J43.2 - Centrilobular emphysema Plan: Continue with Oxygen as directed. Coding Level of Care Code Est Pt Level 4 (79817) Diagnoses Status post hip hemiarthroplasty Z96.649 Closed fracture of left hip, initial encounter S72.002A Encounter type: initial encounter Centrilobular emphysema J43.2 COPD type: emphysema Emphysema type: centrilobular Time Spent (min) 20 Comment Spent on reviewing hospital chart and patient education.
[2024-03-24 08:07] VITALS: BP 122/70; PULSE 92; O2SAT 90; BMI 20.8
== END 2024-03-24 08:34 | disposition home or self-care (01) ==
PROVIDERS: PCP Physician Assistant; Visit Provider Nurse Practitioner Family
DX: Z96.649 Presence of unspecified artificial hip joint (principal); S72.002A Fracture of unspecified part of neck of left femur, initial encounter for closed fracture; J43.2 Centrilobular emphysema
CPT/HCPCS: 99214

== ENCOUNTER 2024-04-03 09:07 | Outpatient (AMB) | payer OTHER, SELFPAY ==
--- NOTE | 2024-04-03 09:11 | A.OFFVIS_ITS ---
Vital Signs 04/03/24 09:12 Height 5 ft 4 in Weight 121 lb BMI 20.8 Intake Visit Reasons: PO - Left Hip Shawn 02/10/24 Intake Note: Bridget is a 78 year old female who presents today for a post operative appointment s/p Left Hip Shawn 02/10/24. Patient reports that she is doing well, she does have some pain or stiffness due to being relatively stationary. Allergies No Known Allergies Allergy (Verified 04/03/24 09:15) HPI HPI PO - Left Hip Shawn 02/10/24: Details: Bridget is a 78 year old female who presents today for a post operative appointment s/p Left Hip Shawn 02/10/24. Patient reports that she is doing well, she does have some pain or stiffness due to being relatively stationary. Overall however she has minimal pain and feels well. [facility] Medical History COPD (chronic obstructive pulmonary disease) Left ulnar fracture COPD (chronic obstructive pulmonary disease) COVID-19 Early satiety Abdominal bloating COPD exacerbation Essential hypertension Precordial chest pain Tachycardia Dyspnea CVA (cerebral vascular accident) Atherosclerotic cardiovascular disease Psoriasis Hydroureter, right Pernicious anemia Raynauds disease Hernia Emphysema lung Emphysema of lung Asthma History of pyloric channel ulcer Glaucoma Mild acid reflux Surgical History S/P cardiac catheterization H/O carotid endarterectomy (04/01/20) History of AAA (abdominal aortic aneurysm) repair Hx of shoulder surgery Hx of varicose vein stripping Family History Father No problems noted. Mother No problems noted. Sister No problems noted. Sister No problems noted. Sister No problems noted. Sister No problems noted. Sister Cancer Son No problems noted. Social History Household Members: None Housing: House Do you presently have visiting nurse or other home services: Yes Unable to assess alcohol history related to: Unable to respond Alcohol intake: never Patient Tobacco Use Status: Former Tobacco user Tobacco use type: Cigarette Years Smoked: 65 e-Cigarette/Vaping Use: Never Used Second Hand Smoke Exposure: No Advance Directives Date on File: 06/11/21 service: No Current occupational status: retired Cognitive needs: Yes Hearing needs: No Vision needs: Yes Physical Exam Vital Signs: BMI result Body Mass Index 20.8 Extrem Other: Walking comfortably without a cane No pain with hip range of motion. Assessment & Plan Assessment & Plan (1) Status post hip hemiarthroplasty: Code(s): Z96.649 - Presence of unspecified artificial hip joint Category: Surgical Plan: Status post hemiarthroplasty of the left hip. She has no pain in his walking exceptionally well. I did caution her to be careful. She can follow up in 6 weeks. She can discontinue Lovenox. Coding Level of Care Code Global (73761) Diagnoses Status post hip hemiarthroplasty Z96.649
[2024-04-03 09:12] VITALS: BMI 20.8
== END 2024-04-03 10:52 | disposition home or self-care (01) ==
PROVIDERS: PCP Physician Assistant; Visit Provider Orthopaedic Surgery
DX: Z96.649 Presence of unspecified artificial hip joint (principal)
CPT/HCPCS: 99024

== ENCOUNTER → 2024-04-03 09:07 | Outpatient (BNVA) | payer OTHER, SELFPAY | PROVIDERS: PCP Physician Assistant; Visit Provider Orthopaedic Surgery | DX: Z47.1 Aftercare following joint replacement surgery (principal); Z96.642 Presence of left artificial hip joint | CPT/HCPCS: 99212 ==

== ENCOUNTER 2024-06-05 08:27 | Outpatient (AMB) | payer OTHER, SELFPAY ==
[2024-06-05 08:35] VITALS: BP 102/64; PULSE 96; O2SAT 90; BMI 20.8
--- NOTE | 2024-06-05 08:35 | A.OFFPC_ITS ---
Vital Signs 06/05/24 08:35 Height 5 ft 4 in Weight 121 lb 2 oz BMI 20.8 BP 102/64 Blood Pressure Location Lt brachial Position Sitting Pulse 96 Pulse Source Pulse Oximeter Pulse Oximetry (%) 90 L Oxygen Delivery Method Nasal Cannula Oxygen Flow Rate 2 Intake Visit Reasons: f/u HTN/ HLD/ COPD Manifest Clerk Required: No Accompanied by: Daughter Allergies No Known Allergies Allergy (Verified 06/05/24 08:43) Medication List - Last Reconciled 06/05/24 by Pipe Washburn PA-C acetaminophen 650 mg (2 x 325 mg) PO Q6H PRN albuterol sulfate 2.5 mg inhalation Q6H PRN albuterol sulfate 90 mcg/actuation 2 inhalations inhalation Q4H PRN aspirin (Adult Aspirin Regimen) 81 mg PO DAILY atorvastatin 80 mg PO DAILY calcium carbonate 500 mg PO BID cholecalciferol (vitamin D3) 25 mcg PO DAILY commode (bedside commode) As directed cyanocobalamin (vitamin B-12) 1,000 mcg PO DAILY enoxaparin 40 mg (0.4 mL) subcut Q24H fluticasone propion-salmeterol 115-21 mcg/actuation (Advair HFA) 2 puffs inhalation Q12H 30 days latanoprost 0.005% 1 drp ophthalmic (eye) BEDTIME qbzfwm-hnbwzwjs-[id number] 24,000-76,000 -120,000 unit (Creon) 1 cap PO TIDAC lisinopril 10 mg PO DAILY metoclopramide HCl 10 mg PO Q6H PRN nebulizers As directed nitroglycerin 0.4 mg sublingual Q5M PRN omeprazole 20 mg PO BID@0630,1630 oxycodone 5 mg PO Q6H PRN [transport wheelchair As directed] [wheelchair cushion As directed] Tobacco use date assessed: 06/05/24 Fall risk assessment: 1 Fall in past year Last assessed Fall Risk: 06/05/24 Dental Screening Dental Screen Date: 06/05/24 Did you have a dental visit in the last 12 months?: No Did you have a dental problem in the last 6 months where you did not have access to dental care?: No Was dental information given to patient?: No HPI f/u HTN/ HLD/ COPD HPI Details Patient is a 78-year-old female here today for follow-up visit. Patient has multiple medical problems including osteoporosis, lumbar spondylosis and stenosis, COPD, history of DVT on Eliquis, peripheral arterial disease, carotid stenosis , abdominal aortic aneurysm, hypertension, hyperlipidemia. Patient recently underwent a hip replacement surgery due to a fall. -Concern--> reports elbow burning sensat ion, does have a small amount of dry irritated skin over her left elbow. Will supply patient with triamcinolone cream .. .. COPD: Patient followed by pulmonology here in [place], was a former smoker (4 packs a day) Continues on maintenance inhalers with decent affect. She is now O2 dependent via nasal cannula -2 liters/minute. She does report often getting bloody noses from the dry nasal mucosa secondary the oxygen use. She does not want to use any nasal sprays Advised on using humidifier .. DVT : Also followed by vascular surgeon for her carotid stenosis and a abdominal aortic aneurysm, undergoing surveillance imaging. Has had multiple vascular dominguez rgeries including abdominal aortic aneurysm repair and carotid endarterectomy. .. Hypertension: Blood pressure today in office acceptable, she does report at times having chest discomforts to which she uses nitro which helps relieve her pain. .. Hyperlipidemia: Patient continues on high-dose statin therapy. Most recent lipid panel showing excellent control over total cholesterol and LDL. Goal LDL to remain below 100, optimally below 70. [facility] Medical History COPD (chronic obstructive pulmonary disease) Left ulnar fracture COPD (chronic obstructive pulmonary disease) COVID-19 Early satiety Abdominal bloating COPD exacerbation Essential hypertension Precordial chest pain Tachycardia Dyspnea CVA (cerebral vascular accident) Atherosclerotic cardiovascular disease Psoriasis Hydroureter, right Pernicious anemia Raynauds disease Hernia Emphysema lung Emphysema of lung Asthma History of pyloric channel ulcer Glaucoma Mild acid reflux Surgical History S/P cardiac catheterization H/O carotid endarterectomy (04/01/20) History of AAA (abdominal aortic aneurysm) repair Hx of shoulder surgery Hx of varicose vein stripping Family History Father No problems noted. Mother No problems noted. Sister No problems noted. Sister No problems noted. Sister No problems noted. Sister No problems noted. Sister Cancer Son No problems noted. Social History Household Members: None Housing: House Do you presently have visiting nurse or other home services: Yes Unable to assess alcohol history related to: Unable to respond Alcohol intake: never Patient Tobacco Use Status: Former Tobacco user Tobacco use type: Cigarette Years Smoked: 65 e-Cigarette/Vaping Use: Never Used Second Hand Smoke Exposure: No Advance Directives Date on File: 06/11/21 service: No Current occupational status: retired Cognitive needs: Yes Hearing needs: No Vision needs: Yes Questionnaire PHQ-9 Over the last 2 weeks, how often have you been bothered by any of the following problems? 1. Little interest or pleasure in doing things: not at all 2. Feeling down, depressed, or hopeless: not at all 3. Trouble falling or staying asleep, or sleeping too much: not at all 4. Feeling tired or having little energy: not at all 5. Poor appetite or overeating: not at all 6. Feeling bad about yourself - or that you are a failure or have let yourself or your family down: not at all 7. Trouble concentrating on things, such as reading the newspaper or watching television: not at all 8. Moving or speaking so slowly that other people could have noticed. Or the opposite - being so fidgety or restless that you have been moving around a lot more than usual: not at all 9. Thoughts that you would be better off or of hurting yourself in some way: not at all Total score: 0 Depression Screening Interpretation: Negative Depression Screening Done: Yes 59722 - PHQ-9 Billing: Yes Source: Developed by Drs. Wallace Nathan, Maddi Steven, Codey Miller and colleagues, with an educational zachary from [employer] Thrive Questionnaire Date Thrive assessed: 06/05/24 I am a: Patient What is your living situation today?: I have a steady place to live Within the past 12 months, did the food you bought not last and you didn't have the money to get more?: Never true Within the past 12 months, did you worry whether your food would run out before you got money to buy more?: Never true Do you have trouble paying for medicines?: No Do you have trouble getting transportation to medical appointments?: No Do you have trouble paying your heating and electricity bill?: No Do you have trouble taking care of your child, family member or friend?: No Do you have trouble with day-to-day activities such as bathing, preparing meals, shopping, managing finances, etc.?: No Are you currently unemployed and looking for a job?: No Are you interested in more education?: No Please select the resources that you would like help with: None Currently or been in a relationship where the following occur: No concerns reported THRIVE Score: 0 AUDIT C Alcohol Use Questionnaire (AUDIT-C) 1. How often do you have a drink containing alcohol?: Never Total Score: 0 CHARLES-7 AMB Questionnaire CHARLES-7 Date CHARLES - 7 assessed: 06/05/24 Feeling nervous, anxious, or on edge: 0 = Not at all Not being able to stop or control worryin = Not at all Worrying too much about different things: 0 = Not at all Trouble relaxin = Not at all Being so restless that it is hard to sit still: 0 = Not at all Becoming easily annoyed or irritable: 0 = Not at all Feeling afraid as if something awful might happen: 0 = Not at all Total CHARLES-7 score (0-4 normal; 5-9 mild; 10-14 moderate; 15-21 severe): 0 Source: Developed by Drs. Wallace Nathan, Maddi Steven, Codey Miller and colleagues, with an educational zachary from [employer] CHARLES-7 Assessment Billing CHARLES-7 Assessment Tool: CHARLES-7 Assessment 10086 Review of Systems Const Denies headache(s) Eyes Denies loss of vision ENT Denies vertigo, Denies dizziness, Denies headache(s) and Denies sore throat Card Denies chest pain, Denies leg edema and Denies lightheadedness Resp Denies cough, Denies hemoptysis and Denies wheezing GI Denies abdominal pain, Denies melena, Denies constipation, Denies diarrhea and Denies vomiting Denies urinary frequency, Denies dysuria and Denies urinary urgency Musc Denies arthralgias, Denies joint swelling, Denies numbness and Denies tingling Neuro Denies Abnormal speech present, Denies behavioral changes, Denies vertigo, Denies dizziness, Denies headache(s), Denies loss of vision, Denies memory loss, Denies numbness and Denies tingling Psych Denies anxiety, Denies behavioral changes, Denies depression, Denies memory loss and Denies panic attacks Edwardo/Lymph Denies easy bleeding and Denies easy bruising Aller/Immun Denies wheezing Physical exam (Primary Care) Vital Signs: Last Vital Signs Pulse 96 06/05/24 08:35 BP 102/64 06/05/24 08:35 Pulse Ox 90 L 06/05/24 08:35 Oxygen Delivery Method Nasal Cannula 06/05/24 08:35 Oxygen Flow Rate 2 06/05/24 08:35 BMI result Body Mass Index 20.8 Tobacco/Smoking Status: Tobacco use Status Tobacco use date assessed 06/05/24 06/05/24 08:41 Patient Tobacco Use Status Former Tobacco user 06/05/24 08:41 Tobacco use type Cigarette 06/05/24 08:41 e-Cigarette/Vaping Use Never Used 06/05/24 08:41 PHQ-9: PHQ-9 Score PHQ-9: Total score 0 06/05/24 09:47 Depression Screening Interpretation: Negative Thrive Assessment: Date of Thrive Assessment Date Thrive assessed 06/05/24 06/05/24 08:41 Currently or been in a relationship where the following occur: No concerns reported Const General: healthy appearing, no acute distress, alert and awake Nutritional Appearance: well nourished Orientation/consciousness: oriented to person, oriented to place and oriented to time HENMT Ears: TM's normal bilaterally General nose exam: Normal nasal mucous membranes and turbinates present Eyes Conjunctivae: conjunctivae normal Sclerae: sclerae normal Pupils: Equal, round and reactive pupils present Neck Neck: Yes no lymphadenopathy and Yes no JVD Thyroid: Thyroid normal Carotids: no bruits Resp Effort & Inspection: normal respiratory effort and not tachypneic Auscultation: no crackles, no rales, no rhonchi and no wheezes Cardio Rate: regular rate Rhythm: regular rhythm Heart sounds: no murmurs and normal S1 and S2 GI Palpation (GI): Soft to palpation, nontender, no hepatomegaly and no splenomegaly Auscultation: normal bowel sounds Skin General skin exam: no rashes or lesions noted and dry skin Neuro General: oriented to person, oriented to place and oriented to time Cranial nerves: Yes Equal, round and reactive pupils present Speech: No Abnormal speech present Gait exam (Neuro): Normal gait present Motor exam (neuro): no tremor noted Extrem Right upper extremity: full ROM Left upper extremity: full ROM Right lower extremity: full ROM; no edema Left lower extremity: full ROM; no edema Psych Mental Status: mental status grossly normal Speech and movement: Normal speech and movement present Affect: normal affect Attitude: cooperative Thought process: Normal thought process present Coding Level of Care Code Est Pt Level 4 (89786) Diagnoses Centrilobular emphysema J43.2 COPD type: emphysema Emphysema type: centrilobular Dermatitis L30.9 Stroke due to stenosis of right carotid artery I63.231 Mixed hyperlipidemia E78.2 Hyperlipidemia type: mixed hyperlipidemia Primary hypertension I10 Hypertension type: primary hypertension Additional Codes PHQ-9 - 12628 - PHQ-9 Billing: Yes ([id number]) CHARLES-7 Assessment Billing - CHARLES-7 Assessment Tool: CHARLES-7 Assessment 22241 ([id number]) Assessment & Plan Assessment & Plan (1) COPD (chronic obstructive pulmonary disease): Code(s): J44.9 - Chronic obstructive pulmonary disease, unspecified Category: Medical Qualifiers: COPD type: emphysema Emphysema type: centrilobular Qualified Code(s): J43.2 - Centrilobular emphysema Plan: She is a previous heavy smoker. She is followed by pulmonology here in [place]. Continues on continuous O2 via nasal cannula. (2) Dermatitis: Code(s): L30.9 - Dermatitis, unspecified Category: Medical Plan: Patient seems to have dried irritated skin over left elbow likely from doing a lot of sitting and rubbing will supply patient with triamcinolone cream to put on the elbow. Advised to use padding (3) Stroke due to stenosis of right carotid artery: Comment: March 2020 - right carotid endarterectomy Code(s): I63.231 - Cerebral infarction due to unspecified occlusion or stenosis of right carotid arteries Category: Medical Plan: Will continue with risk modifications to reduce any recurrent CVA. (4) Hyperlipidemia: Code(s): E78.5 - Hyperlipidemia, unspecified Category: Medical Qualifiers: Hyperlipidemia type: mixed hyperlipidemia Qualified Code(s): E78.2 - Mixed hyperlipidemia Plan: Patient's most recent lipid panel showing good control over total cholesterol and LDL. Will continue her current dose of atorvastatin with goal LDL to be optimally below 70 (5) Hypertension: Code(s): I10 - Essential (primary) hypertension Category: Medical Qualifiers: Hypertension type: primary hypertension Qualified Code(s): I10 - Essential (primary) hypertension Plan: Patient's blood pressure acceptable today in office. She will continue her current dose of antihypertensive medication with goal blood pressure to remain below 140/90 Orders: Orders Lipid Panel Today E78.2 - Mixed hyperlipidemia Complete Blood Count no Diff Today K21.9 - Gastro-esophageal reflux disease without esophagitis Microalbumin, Random (w Creat) Today I10 - Essential (primary) hypertension Comprehensive [place]. Panel Fast Today I10 - Essential (primary) hypertension Medications: New triamcinolone acetonide 0.1% 1 appl topical DAILY 30 grams 0RF 30 days L30.9 - Dermatitis, unspecified
== END 2024-06-05 09:00 | disposition home or self-care (01) ==
PROVIDERS: PCP Physician Assistant; Visit Provider Physician Assistant
DX: J43.2 Centrilobular emphysema (principal); L30.9 Dermatitis, unspecified; I63.231 Cerebral infarction due to unspecified occlusion or stenosis of right carotid arteries; E78.2 Mixed hyperlipidemia; I10 Essential (primary) hypertension

== ENCOUNTER → 2024-06-05 08:27 | Outpatient (BNVA) | payer OTHER, SELFPAY | PROVIDERS: PCP Physician Assistant; Visit Provider Physician Assistant | DX: J43.2 Centrilobular emphysema (principal); L30.9 Dermatitis, unspecified; I63.231 Cerebral infarction due to unspecified occlusion or stenosis of right carotid arteries; E78.2 Mixed hyperlipidemia; I10 Essential (primary) hypertension | CPT/HCPCS: 96127; 99212 ==

== ENCOUNTER 2024-06-26 08:46 | Outpatient (AMB) | payer OTHER, SELFPAY ==
--- NOTE | 2024-06-26 08:47 | A.OFFVIS_ITS ---
Vital Signs 06/26/24 08:48 BP 110/60 Blood Pressure Location Lt brachial Position Sitting Pulse 98 Pulse Source Pulse Oximeter Pulse Oximetry (%) 91 L Oxygen Delivery Method Nasal Cannula Oxygen Flow Rate 2 Intake Visit Reasons: COPD Allergies No Known Allergies Allergy (Verified 06/26/24 08:55) Medication List - Last Reconciled 06/26/24 by Sofia Edwards LPN acetaminophen 650 mg (2 x 325 mg) PO Q6H PRN albuterol sulfate 2.5 mg inhalation Q6H PRN albuterol sulfate 90 mcg/actuation 2 inhalations inhalation Q4H PRN aspirin (Adult Aspirin Regimen) 81 mg PO DAILY atorvastatin 80 mg PO DAILY calcium carbonate 500 mg PO BID cholecalciferol (vitamin D3) 25 mcg PO DAILY commode (bedside commode) As directed cyanocobalamin (vitamin B-12) 1,000 mcg PO DAILY enoxaparin 40 mg (0.4 mL) subcut Q24H fluticasone propion-salmeterol 115-21 mcg/actuation (Advair HFA) 2 puffs inhalation Q12H 30 days latanoprost 0.005% 1 drp ophthalmic (eye) BEDTIME ldovmi-qzjizcia-[id number] 24,000-76,000 -120,000 unit (Creon) 1 cap PO TIDAC lisinopril 10 mg PO DAILY metoclopramide HCl 10 mg PO Q6H PRN nebulizers As directed nitroglycerin 0.4 mg sublingual Q5M PRN omeprazole 20 mg PO BID@0630,1630 oxycodone 5 mg PO Q6H PRN [transport wheelchair As directed] triamcinolone acetonide 0.1% 1 appl topical DAILY 30 days [wheelchair cushion As directed] HPI Comments Details: The patient is a 78 year-old woman with a history of lifelong smoking, COPD was been developing worsening shortness of breath progressive in nature. Right now she becomes very short of breath even with minimal activity moderate to severe. When she cannot breathe she feels very breathless and his and she is starts panting. Initially had been when she was in the room. In the office we did have her go for 6 minutes walk test patient maintain a pulse ox will above 95% throughout the ambulation. However, his noted that she became very short of breath with a Bandar score of 8/10 when heart rate increased to about 101,520. Therefore we had done an EKG demonstrating sinus that with activity. Patient did have poor R-wave progression in some T-wave abnormalities. At this point the patient does not have any chest pain and no resting her shortness of breath have subsided. Therefore, I will have undergo blood work and also referred to Cardiology. In the meantime will optimize her respiratory therapy by starting Trelegy inhaler should be a good inhaler for her for adherence and also for maximum respiratory capacity. 11/22/2020 The patient is here for a sick visit. She started developing worsening dyspnea even at rest. The patient has hard time with any activity due to significant panting shortness of breath. She also has been complaining of chest pressure. She did call the office yesterday and we advised her to go to the ER because of the chest discomfort. However, she did go but was too crowded and she left. Therefore she was seen today in the office. She has been using the Trelegy inhaler. Only partially helpful. Denies any fevers or chills. Denies any contact with anybody with COVID-19. Denies any productive cough or coughing general. The patient did have an EKG done in the office demonstrating some minimal ectopy otherwise no abnormalities. Therefore, she was given 2 treatments with DuoNeb and her symptoms improved dramatically. Her chest pressure subsided. The patient afterwards was ambulated had a 6 minutes walk test which she desaturated down to 88% with activity. Therefore supplemental oxygen with activity will be helpful as well. The patient does need a nebulizer. We did provide her with a nebulizer in the office and she was educated on how to use it. The patient be treated for COPD exacerbation. If however condition worsens or her symptoms worsen over the weekend that she needs to seek medical advice in the ER. 06/12/2022 the patient is here for a pulmonary follow-up visit. Overall the patient has been doing a little better. She is responding well to the oxygen. She does use with activity and sleep. She has been using her rescue inhaler. Her maintenance inhaler now is not being covered. She has been having to use her rescue inhaler more often. She does not tolerate the powdered inhalers. Therefore I will send her the Advair HFA with hopes that she can start using her maintenance therapy and improve her overall respiratory capacity. We did review her imaging. She did have a CT scan of the chest last year demonstrating hiatal hernia in addition to emphysema. Patient also had some atelectasis. Will go ahead and repeat her chest x-ray at this time. 12/18/2022 the patient is here for a pulmonary follow-up visit. Overall she is feeling better. She does use the oxygen with activity with good effect. Also use it with sleep. She has some discrepancies with her inhalers. I did advise her to use the Advair as prescribed and her rescue inhaler. She had a chest x- ray back in September 2022 personally by me demonstrating no acute disease. Clinically the patient is doing well right now. 06/18/2023 the patient is here for a pulmonary follow-up visit. The patient overall has been doing well. She denies any new complaints. She does have some dyspnea on exertion [id number] severity. She does use the oxygen with good effect. She has also been using the Advair inhaler. She still has some chest tightness and wheezing at times. The patient does have and prescription for Trelegy but she does know if . And the daughter is also wondering if for once a day medication be effective for her. We did talk about potentially optimizing her respiratory therapy by adding a long-acting muscarinic antagonist along with the Advair. If she finds that effective we can always switch her in the future to something like Trelegy. 12/22/2023 the patient is here for pulmonary follow-up visit. She is winded and tired. She does not have her oxygen with her because it is too heavy. Her oxygen did decrease significantly when she came in. When she sat down she was saturating 88% on room air. Will place her on a conserving device 2 L pulse Incruse able to maintain 90%. Then we ambulated her briefly and she was able to sustain a pulse ox of 90% on 4 L pulse. Therefore will request a conserving device for her in order for her to have better portability outside of her home. Also will request a portable oxygen concentrator since she has difficulties handling the oxygen tanks. We did teach her how to use it but she tends to forget. I do believe a portable oxygen concentrator be easier for her to use with ease. The patient has been using the Advair with good effect. She also needs albuterol medication which was sent to the pharmacy. Will have her get a chest x-ray. The patient does have a history of glaucoma now so will take her off all anticholinergics. 06/26/2024 the patient is here for a pulmonary follow-up visit. Overall the patient has been doing well. She has been frail though she has not been taking deep breaths. I did provide her with incentive spirometry in the office so we can work on the deep breathing exercises. She had an x-ray back in the summer with atelectasis and some decreased lung expansion. Seems to be tolerating the inhalers well. She can not tolerate anticholinergics because of glaucoma history. She does get a runny nose from the nasal cannula oxygen. She does not like to use any nasal sprays so she will have to just continue to blow her nose. Otherwise patient is without any other complaints. [facility] Medical History (Updated 06/26/24 @ 20:05 by Maico Perez MD) Chronic respiratory failure COPD (chronic obstructive pulmonary disease) Left ulnar fracture COPD (chronic obstructive pulmonary disease) COVID-19 Early satiety Abdominal bloating COPD exacerbation Essential hypertension Precordial chest pain Tachycardia Dyspnea CVA (cerebral vascular accident) Atherosclerotic cardiovascular disease Psoriasis Hydroureter, right Pernicious anemia Raynauds disease Hernia Emphysema lung Emphysema of lung Asthma History of pyloric channel ulcer Glaucoma Mild acid reflux Surgical History S/P cardiac catheterization H/O carotid endarterectomy (04/01/20) History of AAA (abdominal aortic aneurysm) repair Hx of shoulder surgery Hx of varicose vein stripping Family History Father No problems noted. Mother No problems noted. Sister No problems noted. Sister No problems noted. Sister No problems noted. Sister No problems noted. Sister Cancer Son No problems noted. Social History Household Members: None Housing: House Do you presently have visiting nurse or other home services: Yes Unable to assess alcohol history related to: Unable to respond Alcohol intake: never Patient Tobacco Use Status: Former Tobacco user Tobacco use type: Cigarette Years Smoked: 65 e-Cigarette/Vaping Use: Never Used Second Hand Smoke Exposure: No Advance Directives Date on File: 06/11/21 service: No Current occupational status: retired Cognitive needs: Yes Hearing needs: No Vision needs: Yes Review of Systems Const Reports frequent falls, Denies night sweats and Reports weight loss ENT Denies change in voice, Reports dizziness, Denies lip swelling, Denies mouth pain, Reports nasal congestion, Reports nasal discharge and Denies tongue swelling Card Denies chest pain, Denies dyspnea and Reports dyspnea on exertion Resp Reports cough, Denies dyspnea, Reports dyspnea on exertion and Denies stridor GI Denies abdominal pain Musc Reports abnormal gait and Reports muscle weakness Neuro Denies Neuro-related abnormal movements, Reports abnormal gait, Reports dizziness and Reports frequent falls Psych Denies no additional complaints Edwardo/Lymph Denies easy bleeding and Denies lymphadenopathy Aller/Immun Denies lip swelling and Denies tongue swelling Physical Exam Vital Signs: Last Vital Signs Pulse 98 06/26/24 08:48 BP 110/60 06/26/24 08:48 Pulse Ox 91 L 06/26/24 08:48 Oxygen Delivery Method Nasal Cannula 06/26/24 08:48 Oxygen Flow Rate 2 06/26/24 08:48 Const General: alert Neck Neck: Yes normal visual inspection, Yes full ROM and Yes no lymphadenopathy Chest Chest palpation & inspection: normal inspection of the chest Resp Effort & Inspection: normal respiratory effort Auscultation: no wheezes and diminished lung sounds Cardio Rate: regular rate Rhythm: regular rhythm Heart sounds: S1 normal heart sound present and S2 normal heart sound present GI Palpation (GI): Soft to palpation and nontender Auscultation: normal bowel sounds Skin General skin exam: rashes and/or lesions noted Results Reviewed Results Reviewed: [address] [address] XRay Report Signed Patient: Bridget Rabago MR#: [id number] : 1945 Acct:[id number] Age/Sex: 78 / F ADM Date: 02/08/24 Loc: [facility] 454-[address]: Jonathon Be MD Ordering Physician: Jonathon Be MD Date of Service: 02/09/24 Procedure(s): XR chest 1V Accession Number(s): [id number] cc: Pipe Washburn PA-C; Jonathon Be MD~ EXAMINATION: XR CHEST CLINICAL INFORMATION: Choking episode COMPARISON: Chest radiograph yesterday TECHNIQUE: Frontal view of the chest was obtained. FINDINGS: Heart size upper limits of normal. Some chronic reticular nodular markings are seen in the lungs. There is a slight increase in left basilar atelectasis with some minimal blunting of the left costophrenic angle not seen yesterday. Again noted are vertebroplasty changes in the mid thoracic spine along with an abdominal aortic stent graft. XR/XR chest 1V IMPRESSION: Slight increase in left basilar atelectasis with some minimal blunting of the left costophrenic angle. Dictated By: Hunter Joyce MD Signed By: <Electronically signed by Hunter Joyce MD in OV> 02/09/24 1826 DD/ 1640 TD/TT: Steel Pourer: SS Assessment & Plan Assessment & Plan (1) COPD (chronic obstructive pulmonary disease): Code(s): J44.9 - Chronic obstructive pulmonary disease, unspecified Category: Medical Qualifiers: COPD type: emphysema Emphysema type: centrilobular Qualified Code(s): J43.2 - Centrilobular emphysema (2) Dyspnea: Code(s): R06.00 - Dyspnea, unspecified Category: Medical Qualifiers: Dyspnea type: dyspnea on exertion Qualified Code(s): R06.00 - Dyspnea, unspecified (3) Emphysema of lung: Code(s): J43.9 - Emphysema, unspecified Category: Medical Qualifiers: Emphysema type: centrilobular Qualified Code(s): J43.2 - Centrilobular emphysema (4) Chronic respiratory failure: Code(s): J96.10 - Chronic respiratory failure, unspecified whether with hypoxia or hypercapnia Category: Medical Qualifiers: Respiratory failure complication: hypoxia Qualified Code(s): J96.11 - Chronic respiratory failure with hypoxia Plan continue Advair HFA stopped Incruse due to glaucoma ? KAYY as needed start ISS oxygen supplementation revision: 2 L/pulse via nasal cannula at rest, 4L/pulse with activity. Requesting conserving device and a POC for better portability outside of the home Follow-up in 4-6 months Coding Level of Care Code Est Pt Level 4 (97070) Complex EM visit Add On G2211 Diagnoses Centrilobular emphysema J43.2 COPD type: emphysema Emphysema type: centrilobular Dyspnea on exertion R06.00 Dyspnea type: dyspnea on exertion Centrilobular emphysema J43.2 Emphysema type: centrilobular Chronic respiratory failure with hypoxia J96.11 Respiratory failure complication: hypoxia Time Spent (min) 16
[2024-06-26 08:48] VITALS: BP 110/60; PULSE 98; O2SAT 91
--- OUTSIDE RECORDS SUMMARY | 2024-06-26 08:54 | XMS_ITS ---
Author Organization [facility] Address [address] [place] [address] Care Team Providers Care Campground Attendant Name Role Phone Pipe Washburn Primary Care Provider Unavailab Ariana Willis Unavailable [phone] Allergies No Known Allergies REASON FOR VISIT At Risk Footcare, Painful Nail(s) aggrevated by shoes and causing difficulty standing/walking. Medications Medication SIG (Take, Route, Frequency, Duration) Notes Start Date End Date Status Metoclopramide HCl 10 MG 1 tablet before meals Orally Twice a day for 30 day(s) PRN Active Advair HFA 115-21 MCG/ACT INHALE 2 PUFFS BY MOUTH EVERY 12 HOURS Inhalation for 90 Days Active oxygen prn Active Eliquis 5 MG TAKE 1 TABLET BY KLEVER TH TWICE A DAY Oral for 30 Days Not-Taking Albuterol Sulfate 09/14/2023 A ctive Lisinopril 10 MG TAKE 1 TABLET BY KLEVER TH EVERY DAY FOR 30 DAYS Oral for 90 Days Active Vitamin B-12 1000 MCG TAKE 1 TABLET BY M OUTH EVERY DAY FOR 90 DAYS Oral for 90 Days Active Calcium 600 MG 1 tablet with meals Orally Twice a day for 30 day(s) 09/14/2023 Active Omeprazole 20 MG TAKE 1 CAPSULE BY MOUTH TWICE A DAY Oral for 90 Days Active Vitamin D3 25 MCG (1000 UT) TAKE 1 TABLET BY MOUTH EVERY DAY FOR 30 DAYS Oral for 90 Days Active Atorvastatin Calcium 80 MG Oral for 90 Days Active Baby Aspirin Active Creon 74602-22614 UNIT Oral for 30 Days Active Latanoprost Active Nitroglycerin 0.4 MG as directed Sublingual PRN Active Social History Tobacco Use: Social History Observation Description Date Details (start date - stop date) Former Smoker NA - NA Tobacco Use/Smoking Question Answer Notes Are you a: former smoker Additional Findings: Tobacco Non-User Current no n-smoker Alcohol Screen Question Answer Notes Did you have a drink containing alcohol in the p ast year? No Points 0 Interpretation Negative Tobacco use other than smoking: Question Answer Notes Are you an other tobacco user? No Vital Signs Height 5 ft 4 in in 01/11/2024 Weight 128 lbs 01/11/2024 BMI 21.97 kg/m2 01/11/2024 Encounters Encounter Location Date Provider Diagnosis [facility] [address] [place] [address] 01/11/2024 Ariana Garcia Atherosclerosis of [place] artery of both lower extremities, with unspecified presence of clinical manifestation I70.203 ; Tinea unguium B35.1 ; Pain in right toe(s) M79.674 and Pain in left toe(s) M79.675 Assessments Encounter Date Diagnosis (ICD Code) Assessment Notes Treatment Notes Treatment Clinical Notes Section Notes 01/11/2024 Atherosclerosis of [place] artery of both lower extremities, with unspecified presence of clinical manifestation (ICD-10 - I70.203) 01/11/2024 Tinea unguium (ICD-10 - B35.1) 01/11/2024 Pain in right toe(s) (ICD-10 - M79.674) 01/11/2024 Pain in left toe(s) (ICD-10 - M79.675) Plan Of Treatment Next Appt Details Follow Up: 2 Months, Reason: Provider Name:Ariana bruno, 08/23/2024 01:00:00 PM, [address] [place], [address], Procedure Notes * Category Sub-Category Detail Notes Debride Nail 6-10 Nail debridement Nail debridem ent performed extensively to reduce/remove overall nail length, girth, thickness, subungual debris, and necrotic tissue, by manual and electrical means through the use of a dremel, to more viable healthy nail plate or bed tissue 1-5. Silver nitrate used for any petechial bleeding as necessary. Patient chooses, no pharmaceutical tx (43076) Keratoma Treatment Parring or Cutting o f Benign Hyperkeratotic Lesion(s) 36987 ( More than 4 Lesions ) - The Benign hyperkeratotic lesions, as described above were pared, and/or cut utilizing a sterile 15 blade, tissue nippers, and/or dremel, Q8 Progress Notes * Linn RABAGOOB:1945 (78 yo F)Acc No.[id number]:01/11/2024 Progress Note Patient:?Bridegt Rabago Provider:?Ariana Garcia DPM :1945???Age:78 Y???Sex:Female D ate:01/11/2024 Address:[address] [place], [place] [id number] Pcp:Pipe Washburn Subjective: * Chief Complaints: * ???At Risk FootcarePainful N ail(s) aggrevated by shoes and causing difficulty standing/walking. * HPI: ???At Risk footcare:?Pt States Last PCP Visit:?Date?10/21/2023 * ROS:?General/Constitutional:?Nausea?denies.?Vomiting?denies.?Hunger Thirst?denies.?Loss appetite?denies.?Chills?denies.?Fatigue?denies.?Fever?denies.?Night Sweats?denies.?Unexplained weight loss?denies.?Unexplained weight gain?denies.?HEENTM:?Dentures?admits.?Dizziness?denies.?Glasses/contacts?admits.?Retinopathy?de nies.?Blurred/double vision?denies.?TMJ?denies.?Discharge/drainage?denies.?Implants?denies.?Sore throat?denies.?Dental implants?denies.?Hard of hearing ?denies.?Difficulty chewing/swallowing/speaking?denies.?Nose bleeds?denies.?Sore mouth?denies.?Respiratory:?On Oxygen?admits.?Pneumonia/pleurisy?denies.?Bronchitis?denies.?Emphysema?denies.?C oughing?admits.?Cough blood?denies.?Shortness of breath?admits.?Wheezing?denies.?Cardiovascular:?Pacemaker?denies.?MVP?denies.?WPW?denies.?CHF?denies.?Heart attack?denies.?Septal defect?denies.?Rapid beat?denies.?Chest pain ?denies.?Atrial Fib.?denies.?Murmur/Palpitations?denies.?Gastrointestinal:?Hemorrhoids?denies.?Stomach/Abdominal pain?admits.?Dark blood stool?denies.?Irritable bowel ?denies.?Constipation?denies.?Diarrhea?denies.?Hematology:?Swelling?denies.?Clots?denies.?Varicose Veins?denies.?Bruising?denies.?Bleeding problem?denies.?Genitourinary:?Blood urine?denies.?Frequent/Painfu/urination/bladder control?denies.?Kidney stones?denies.?Infection (UTI)?denies.?Nephropathy?denies.?sex trans dis (STD)?denies.?Prostate?denies.?Musculoskeletal:?Hammertoes?denies.?Bunions?admits.?Back Pain?admits.?Muscle Cramps/ Resting?admits.?Muscle cramps / walking?admits.?Generalized aches and pains?admits.?Weakness?admits.?Integ.:?Brown?denies.?Scars?denies.?Corns/calluses?denies.?Ingrown nails?denies.?Painful nails?denies.?Open Sores?denies.?Rashes?denies.?Neurologic:?Difficulty sleeping?denies.?Brain disorder?denies.?Numbness?admits.?Balance trouble?denies.?Confusion?denies.?Fainting/blackouts?denies.?Tingling?admits.?Tr emors?denies.? * Medical History:? * Surgical History:?shoulder s urgery vein surgery clavical surgery aortic anuerism teeth extraction * Hospitalization/Major Diagno stic Procedure:?Denies Past Hospitalization * Family History:?Mother: dece ased.?Father: .? * Social History:?Tobacco Use:?Tobacco Use/Smoking?Are you a:?former smoker ?Additional Findings: Tobacco Non-User?Current non-smoker ?Tobacco use other than smoking?Are you an other tobacco user??No ???Drugs/Alcohol:?Drugs?Have you used drugs other than those for medical reasons in the past 12 months??No ?Alcohol Screen?Did you have a drink containing alcohol in the past year??No ?Points?0 ?Interpretation?Negative ???Miscellaneous:?Caffeine: yes, more than 4 cups per day. ?Children: yes, 1. ?no Exercise. ?Marital status: . ?Occupation: Retired-[employer]. * Medications:?Takingoxygen , Notes: prnMetoclopramide HCl 10 MG Tablet 1 tablet before meals Orally Twice a day, Notes: PRNNitroglycerin 0.4 MG Tablet Sublingual as directed Sublingual , Notes: PRNLatanoprost Baby Aspirin Atorvastatin Calcium 80 MG Tablet Oral Creon 30083-71359 UNIT Capsule Delayed Release Particles Oral Calcium 600 MG Tablet 1 tablet with meals Orally Twice a dayVitamin B-12 1000 MCG Tablet TAKE 1 TABLET BY MOUTH EVERY DAY FOR 90 DAYS Oral Vitamin D3 25 MCG (1000 UT) Tablet TAKE 1 TABLET BY MOUTH EVERY DAY FOR 30 DAYS Oral Omeprazole 20 MG Capsule Delayed Release TAKE 1 CAPSULE BY MOUTH TWICE A DAY Oral Lisinopril 10 MG Tablet TAKE 1 TABLET BY MOUTH EVERY DAY FOR 30 DAYS Oral Advair HFA 115-21 MCG/ACT Aerosol INHALE 2 PUFFS BY MOUTH EVERY 12 HOURS Inhalation Albuterol Sulfate Taking oxygen , Notes: prnTaking Metoclopramide HCl 10 MG Tablet 1 tablet before meals Orally Twice a day, Notes: PRNTaking Nitroglycerin 0.4 MG Tablet Sublingual as directed Sublingual , Notes: PRNTaking Latanoprost Taking Baby Aspirin Taking Atorvastatin Calcium 80 MG Tablet Oral Taking Creon 94386-32498 UNIT Capsule Delayed Release Particles Oral Taking Calcium 600 MG Tablet 1 tablet with meals Orally Twice a dayTaking Vitamin B-12 1000 MCG Tablet TAKE 1 TABLET BY MOUTH EVERY DAY FOR 90 DAYS Oral Taking Vitamin D3 25 MCG (1000 UT) Tablet TAKE 1 TABLET BY MOUTH EVERY DAY FOR 30 DAYS Oral Taking Omeprazole 20 MG Capsule Delayed Release TAKE 1 CAPSULE BY MOUTH TWICE A DAY Oral Taking Lisinopril 10 MG Tablet TAKE 1 TABLET BY MOUTH EVERY DAY FOR 30 DAYS Oral Taking Advair HFA 115-21 MCG/ACT Aerosol INHALE 2 PUFFS BY MOUTH EVERY 12 HOURS Inhalation Taking Albuterol Sulfate Not-Taking/PRNEliquis 5 MG Tablet TAKE 1 TABLET BY MOUTH TWICE A DAY Oral Medication List reviewed and reconciled with the patientNot-Taking/PRN Eliquis 5 MG Tablet TAKE 1 TABLET BY MOUTH TWICE A DAY Oral Medication List reviewed and reconciled with the patient * Allergies:?N.K.D.A.yes[Aller gies Verified] Objective: * Vitals:?Ht: 5 ft 4 in, Wt: 1 28, BMI: 21.97, Shoe size: 9, Ht-cm: 162.56 cm, Wt- k.06 kg. * Examination: ???Vascular: ?DP PULSES:? 0/4, B/L.?PT PULSES:? 0/4, B/L.?CAPILLARY FILL TIME:? delayed, all digits, B/L.?SKIN TEMPERTURE GRADIENT OF THE LOWER EXTERMITIES:? decreased, cool to cool, proximal to distal, B/L.?HAIR GROWTH/TEXTURE/ELASTICITY/TURGOR:? decreased, B/L.?CLAUDICATION:?denies, B/L.?REST PAIN:?denies, B/L.?Nails: ?NAILS are:? Elongated, overgrown, dystrophic, lytic, greater than 3mm thick, discolored and friable with crumbly malodorous subungual debris, with pain on palpation 1-5 B/L.?Dermatologic: ?SKIN FINDINGS:? Skin exam reveals Keratotic lesion(s) located at TA T4 T5 SUB MTH (s) 5 3 B/L.? Assessment: * Assessment: 1.?Tinea unguium - B35.1?2.? Atherosclerosis of [place] artery of both lower extremities, with unspecified presence of clinical manifestation - I70.203?3.?Pain in right toe(s) - M79.674?4.?Pain in left toe(s) - M79.675? Plan: * Treatment: * Procedures:?Debride Nail 6-10:?Nail debridement?Nail debridement performed extensively to reduce/remove overall nail length, girth, thickness, subungual debris, and necrotic tissue, by manual and electrical means through the use of a dremel, to more viable healthy nail plate or bed tissue 1-5. Silver nitrate used for any petechial bleeding as necessary. Patient chooses, no pharmaceutical tx ([id number]).?Keratoma Treatment:?Parring or Cutting of Benign Hyperkeratotic Lesion(s)?08235 ( More than 4 Lesions ) - The Benign hyperkeratotic lesions, as described above were pared, and/or cut utilizing a sterile 15 blade, tissue nippers, and/or dremel, Q8.? * Procedure Codes:?06544 DEBRI DE NAIL, 6 OR MORE, Modifiers: XS 04287 TRIM SKIN LESIONS, OVER 4, Modifiers: XS , Q8 * Follow Up:?2 Months * Images: * Sign off status: Completed true * Provider:?Ariana Garcia DPM Date:?08/2023 Generated for Vern hernández/Claudio/eTransmitting on:?06/26/2024 08:54 AM EST History and Physical Notes * HPI (History of Present Illness) Category Sub-Category Detail Notes Category Not es At Risk footcare Pt States Last PCP Visit: Date: Examination Category Sub-Category Detail Notes Category Not es Dermatologic SKIN FINDINGS: Skin exam reveal s Keratotic lesion(s) located at TA T4 T5 SUB MTH (s) 5 3 B/L Vascular DP PULSES(B): 0/4, B/L PT PULSES(B): 0/4, B/L CAPILLARY FILL TIME: delayed, all digits , B/L TEMPERTURE GRADIENT(C): decreased, cool to cool, proximal to distal, B/L TROPHIC CONDITION-TEXTURE/ELASTICITY/TURGOR/HAIR GROWTH(B): decreased, B/L CLAUDICATION(C): denies, B/L REST PAIN: denies, B/L Nails NAILS are: Elongated, overg rown, dystrophic, lytic, greater than 3mm thick, discolored and friable with crumbly malodorous subungual debris, with pain on palpation 1-5 B/L
--- OUTSIDE RECORDS SUMMARY | 2024-06-26 08:54 | XMS_ITS ---
Author Organization [facility] Address [address] [place] [address] Care Team Providers Care Batching Operator Name Role Phone Pipe Washburn Primary Care Provider Unavailab Ariana Willis Unavailable [phone] Allergies No Known Allergies REASON FOR VISIT At Risk Footcare, Painful Nail(s) aggrevated by shoes and causing difficulty standing/walking., Swelling Medications Medication SIG (Take, Route, Frequency, Duration) Notes Start Date End Date Status Latanoprost Active Baby Aspirin Active Metoclopramide HCl 10 MG 1 tablet before meals Orally Twice a day for 30 day(s) PRN Active Nitroglycerin 0.4 MG as directed Sublingual PRN Active Atorvastatin Calcium 80 MG Oral for 90 Days Active oxygen prn Active Lisinopril 10 MG TAKE 1 TABLET BY KLEVER TH EVERY DAY FOR 30 DAYS Oral for 90 Days Active Eliquis 5 MG TAKE 1 TABLET BY KLEVER TH TWICE A DAY Oral for 30 Days Not-Taking Advair HFA 115-21 MCG/ACT INHALE 2 PUFFS BY MOUTH EVERY 12 HOURS Inhalation for 90 Days Active Albuterol Sulfate 09/14/2023 A ctive Omeprazole 20 MG TAKE 1 CAPSULE BY MOUTH TWICE A DAY Oral for 90 Days Active Vitamin B-12 1000 MCG TAKE 1 TABLET BY M OUTH EVERY DAY FOR 90 DAYS Oral for 90 Days Active Vitamin D3 25 MCG (1000 UT) TAKE 1 TABLET BY MOUTH EVERY DAY FOR 30 DAYS Oral for 90 Days Active Creon 52954-45151 UNIT Oral for 30 Days Active Calcium 600 MG 1 tablet with meals Orally Twice a day for 30 day(s) 09/14/2023 Active Social History Tobacco Use: Social History Observation Description Date Details (start date - stop date) Former Smoker NA - NA Tobacco Use/Smoking Question Answer Notes Are you a: former smoker Additional Findings: Tobacco Non-User Current no n-smoker Tobacco use other than smoking: Question Answer Notes Are you an other tobacco user? No Vital Signs Height 5 ft 4 in in 03/28/2024 Weight 121 lbs 03/28/2024 BMI 20.77 kg/m2 03/28/2024 Blood pressure systolic 129 mm Hg 03/28/20 24 Blood pressure diastolic 78 mm Hg 024 Encounters Encounter Location Date Provider Diagnosis [facility] [place] [address] [place] [address] 03/28/2024 Ariana Garcia Atherosclerosis of atka artery of both lower extremities, with unspecified presence of clinical manifestation I70.203 ; Tinea unguium B35.1 ; Pain in right toe(s) M79.674 ; Pain in left toe(s) M79.675 and Edema, lower extremity R60.0 Assessments Encounter Date Diagnosis (ICD Code) Assessment Notes Treatment Notes Treatment Clinical Notes Section Notes 03/28/2024 Atherosclerosis of atka artery of both lower extremities, with unspecified presence of clinical manifestation (ICD-10 - I70.203) 03/28/2024 Tinea unguium (ICD-10 - B35.1) 03/28/2024 Pain in right toe(s) (ICD-10 - M79.674) 03/28/2024 Pain in left toe(s) (ICD-10 - M79.675) 03/28/2024 Edema, lower extremity (ICD-10 - R60.0) Plan Of Treatment Next Appt Details Follow Up: 2 Months, Reason: Provider Name:Ariana bruno, 08/23/2024 01:00:00 PM, [address] [place], [address], Procedure Notes * Category Sub-Category Detail Notes [...] as necessary. Patient chooses, no pharmaceutical tx (99920) Keratoma Treatment Parring or Cutting o f Benign Hyperkeratotic Lesion(s) 95714 ( More than 4 Lesions ) - The Benign hyperkeratotic lesions, as described above were pared, and/or cut utilizing a sterile 15 blade, tissue nippers, and/or dremel, Q8 Progress Notes * Linn RABAGOOB:1945 (78 yo F)Acc No.[id number]:03/28/2024 Progress Note Patient:?Bridget Rabago Provider:?Ariana Garcia DPM :1945???Age:78 Y???Sex:Female D ate:03/28/2024 Address:[address] [place], [place] [id number] Pcp:Pipe Washburn Subjective: * Chief Complaints: * ???At Risk FootcarePainful N ail(s) aggrevated by shoes and causing difficulty standing/walking.Swelling * HPI: ???At Risk footcare:?Pt States Last PCP Visit:?Date?03/17/2024 ???Swelling:?Location:?Both feet/leg.?Duration:?several weeks.?Course:?worse.? * ROS:?General/Constitutional:?Nausea?denies, denies.?Vomiting?denies, denies.?Hunger Thirst?denies, denies.?Loss appetite?denies, denies.?Chills?denies, denies.?Fatigue?denies, denies.?Fever?denies, denies.?Night Sweats denies, denies.?Unexplained weight loss?denies, denies.?Unexplained weight gain?denies, denies.?HEENTM:?Dentures?admits, admits.?Dizziness?denies, denies.?Glasses/contacts?admits, admits.?Retinopathy?denies, denies.?Blurred/double vision?denies, denies.?TMJ?denies, denies.?Discharge/drainage?denies, denies.?Implants?denies, denies.?Sore throat?denies, denies.?Dental implants?denies, denies.?Hard of hearing ?denies, denies.?Difficulty chewing/swallowing/speaking?denies, denies.?Nose bleeds?denies, denies.?Sore mouth?denies, denies.?Respiratory:?On Oxygen?admits, admits.?Pneumonia/pleurisy?denies, denies.?Bronchitis?denies, denies.?Emphysema?denies, denies.?Coughing?admits, admits.?Cough blood?denies, denies.?Shortness of breath?admits, admits.?Wheezing?denies, denies.?Cardiovascular:?Pacemaker?denies, denies.?MVP?denies, denies.?WPW?denies, denies.?CHF?denies, denies.?Heart attack?denies, denies.?Septal defect?denies, denies.?Rapid beat?denies, denies.?Chest pain ?denies, denies.?Atrial Fib.?denies, denies.?Murmur/Palpitations?denies, denies.?Gastrointestinal:?Hemorrhoids?denies, denies.?Stomach/Abdominal pain?admits, admits.?Dark blood stool?denies, denies.?Irritable bowel ?denies, denies.?Constipation?denies, denies.?Diarrhea?denies, denies.?Hematology:?Swelling?denies, denies.?Clots?denies, denies.?Varicose Veins?denies, denies.?Bruising?denies, denies.?Bleeding problem?denies, denies.?Genitourinary:?Blood urine?denies, denies.?Frequent/Painfu/urination/bladder control?denies, denies.?Kidney stones?denies, denies.?Infection (UTI)?denies, denies.?Nephropathy?denies, denies.?sex trans dis (STD)?denies, denies.?Prostate?denies, denies.?Musculoskeletal:?Hammertoes?denies, denies.?Bunions?admits, admits.?Back Pain?admits, admits.?Muscle Cramps/ Resting?admits, admits.?Muscle cramps / walking?admits, admits.?Generalized aches and pains?admits, admits.?Weakness?admits, admits.?Integ.:?Brown?denies, denies.?Scars?denies, denies.?Corns/calluses?denies, denies.?Ingrown nails?denies, denies.?Painful nails?denies, denies.?Open Sores?denies, denies.?Rashes?denies, denies.?Neurologic:?Difficulty sleeping?denies, denies.?Brain disorder?denies, denies.?Numbness?admits, admits.?Balance trouble?denies, denies.?Confusion?denies, denies.?Fainting/blackouts?denies, denies.?Tingling?admits, admits.?Tremors?denies, denies.? * Medical History:? * Surgical History:?shoulder s urgery vein surgery clavical surgery aortic anuerism teeth extraction partial hip replacement 02/08/24 * Hospitalization/Major Diagno stic Procedure:?Denies Past Hospitalization * Family History:?Mother: dece ased.?Father: .? * Social History:?Tobacco Use:?Tobacco Use/Smoking?Are you a:?former smoker ?Additional Findings: Tobacco Non-User?Current non-smoker ?Tobacco use other than smoking?Are you an other tobacco user??No ???Miscellaneous:?Caffeine: yes, more than 4 cups per day. ?Children: yes, 1. ?no Exercise. ?Marital status: . ?Occupation: Retired-[employer]. * Medications:?Takingoxygen , Notes: prnMetoclopramide HCl 10 MG Tablet 1 tablet before meals Orally Twice a day, Notes: PRNNitroglycerin 0.4 MG Tablet Sublingual as directed Sublingual , Notes: PRNLatanoprost Baby Aspirin Atorvastatin Calcium 80 MG Tablet Oral Creon 82911-04589 UNIT Capsule Delayed Release Particles Oral Calcium [...] Calcium 80 MG Tablet Oral Taking Creon 17512-63053 UNIT Capsule Delayed Release Particles Oral Taking [...] Vitals:?Ht: 5 ft 4 in, Wt: 1 21, BMI: 20.77, Shoe size: 9, BP: 129/78 mm Hg, Ht- cm: 162.56 cm, Wt-k.88 kg. * Examination: ???Vascular: ?DP PULSES(B):? 0/4, B/L.?PT PULSES(B):? 0/4, B/L.?CAPILLARY FILL TIME:? delayed, all digits, B/L.?TROPHIC CONDITION-TEXTURE/ELASTICITY/TURGOR/HAIR GROWTH(B):? decreased, B/L.?TEMPERTURE GRADIENT(C):? decreased, cool to cool, proximal to distal, B/L.?EDEMA(C):? 2/4 B/L.?CLAUDICATION(C):?denies, B/L.?REST PAIN:?denies, B/L.?JENI'S SIGN:?absent, B/L.?PALPABLE CORDS:?absent, B/L.?Nails: ?NAILS are:? Elongated, overgrown, dystrophic, lytic, greater than 3mm thick, discolored and friable with crumbly malodorous subungual debris, with pain on palpation 1-5 B/L.?Dermatologic: ?SKIN FINDINGS:? Skin exam reveals Keratotic lesion(s) located at TA T4 T5 SUB MTH (s) 5 3 B/L.? Assessment: * Assessment: 1.?Atherosclerosis of atka artery of both lower extremities, with unspecified presence of clinical manifestation - I70.203?2.?Tinea unguium - B35.1?3.?Pain in right toe(s) - M79.674?4.?Pain in left toe(s) - M79.675?5.?Edema, lower extremity - R60.0, Acute problem, Uncomplicated (3), Rx Management (4)? Plan: * Treatment: * Procedures:?Debride Nail 6-10:?Nail debridement?Nail debridement performed extensively to reduce/remove overall nail length, girth, thickness, subungual debris, and necrotic tissue, by manual and electrical means through the use of a dremel, to more viable healthy nail plate or bed tissue 1-5. Silver nitrate used for any petechial bleeding as necessary. Patient chooses, no pharmaceutical tx (82636).?Keratoma Treatment:?Parring or Cutting of Benign Hyperkeratotic Lesion(s)?12656 ( More than 4 Lesions ) - The Benign hyperkeratotic lesions, as described above were pared, and/or cut utilizing a sterile 15 blade, tissue nippers, and/or dremel, Q8.? * Procedure Codes:?36529 DEBRI DE NAIL, 6 OR MORE, Modifiers: XS 04542 TRIM SKIN LESIONS, OVER 4, Modifiers: XS , Q8 * Preventive Medicine:? ??Counseling:?Discussion:?-13: Office or other outpatient visit for the evaluation and management of an established patient, which required a medically appropriate history and/or examination and LOW level of DECISION MAKING for: 1 STABLE ACUTE UNCOMPLICATED PROBLEM, 2 OR MORE MINOR PROBLEMS, OR 1 STABLE CHRONIC PROBLEM, THAT POSE(S) A LOW RISK FOR MORBIDITY/MORTALITY. The visit on the day of the encounter encompassed interpreting the data and educating the patient as to the nature of their condition, treatment options available according to their individual PMH, meds, allergies, and overall health/living conditions, as well as any potential risks or complications that may occur from a failure to adhere to, and participate in, the recommended course of therapy. The discussion included a complete verbal, and/or written explanation of the examination results, any x-rays taken, the proposed diagnosis, and outline of the treatment plan. A schedule for future care needs was also explained. The patient verbalized an understanding of the instructions at this time and agreed to be an active participant in their treatment. If the patient should think of any questions or concerns after the visit, I have encouraged the patient to call the office.?Edema:?I explained to the patient the possible etiologies for Edema, including genetic, surgery, infection, medications, heart disease, kidney disease, excess dietary salt, and various cancer treatments. We discussed the risks/benefits of the treatment options available including rest, elevation, OTC compression stockings, Rx compression stockings, Unna Boot application, diet modification to limit salt intake, and Rx segmental compression boots provided the absence of CHD in the patients medical history. The advantages and disadvantages of each option were discussed and the patients questions re: risk of infection(cellulitis), medications, diet, and the daily use of compression stockings(not to be worn at night), and consistency in these home treatment regimens for optimal success were answered to their verbally confirmed satisfaction. Given the risk for vessel clotting disease, the patient was instructed to go immediately to the ER of hospital should they experience any calf pain, SOB, or discomfort. Any changes to the patients medication regimen will be performed by the PCP or patients kidney/heart/cancer specialist.? * Follow Up:?2 Months * Images: * Sign off status: Completed true * Provider:?Ariana Garcia DPM Date:? Generated for Vern hernández/Claudio/Efrenitting on:?06/26/2024 08:54 AM EST History and Physical Notes * HPI (History of Present Illness) Category Sub-Category Detail Notes Category Not es At Risk footcare Pt States Last PCP Visit: Date: 4 Swelling Location: Both feet/leg Duration: several weeks Course: worse Examination Category Sub-Category Detail Notes Category Not es Dermatologic SKIN FINDINGS: Skin exam reveal s Keratotic lesion(s) located at TA T4 T5 SUB MTH (s) 5 3 B/L Vascular DP PULSES(B): 0/4, B/L PT PULSES(B): 0/4, B/L CAPILLARY FILL TIME: delayed, all digits , B/L TEMPERTURE GRADIENT(C): decreased, cool to cool, proximal to distal, B/L TROPHIC CONDITION-TEXTURE/ELASTICITY/TURGOR/HAIR GROWTH(B): decreased, B/L EDEMA(C): 2/4 B/L CLAUDICATION(C): denies, B/L REST PAIN: denies, B/L JENI'S SIGN: absent, B/L PALPABLE CORDS: absent, B/L Nails NAILS are: Elongated, overg rown, dystrophic, lytic, greater than 3mm thick, discolored and friable with crumbly malodorous subungual debris, with pain on palpation 1-5 B/L
--- OUTSIDE RECORDS SUMMARY | 2024-06-26 08:54 | XMS_ITS | Patient Health Record ---
[facility] Organization [facility] Address [address] [place] [address] Care Team Providers Care Car Hopper Name Role Phone Pipe Washburn Primary Care Provider Unavailab Ariana Willis Unavailable [phone] Allergies No Known Allergies Reason For Referral No Information Medications Medication SIG (Take, Route, Frequency, Duration) Notes Start Date End Date Status Albuterol Sulfate 09/14/2023 A ctive Latanoprost Active Eliquis 5 MG TAKE 1 TABLET BY KLEVER TH TWICE A DAY Oral for 30 Days Not-Taking Omeprazole 20 MG TAKE 1 CAPSULE BY MOUTH TWICE A DAY Oral for 90 Days Active oxygen prn [...] DAYS Oral for 90 Days Active Creon 83007-58844 UNIT Oral for 30 Days Active Calcium 600 MG 1 tablet with meals Orally Twice a day for 30 day(s) 09/14/2023 Active Baby Aspirin Active Atorvastatin Calcium 80 MG Oral for 90 Days Active Metoclopramide HCl 10 MG 1 tablet before meals Orally Twice a day for 30 day(s) PRN Active Advair HFA 115-21 MCG/ACT INHALE 2 PUFFS BY MOUTH EVERY 12 HOURS Inhalation for 90 Days Active Nitroglycerin 0.4 MG as directed Sublingual [...] Are you an other tobacco user? No Problems Problem Type SNOMED Code ICD Code Onset Dates Problem Status W/U Status Risk Notes Problem Acquired hammer toe of right foot ([id number] 39804) Other hammer toe(s) (acquired), right foot (M20.41) Active confirmed Problem Acquired hammer toe of left foot ([id number] 24015) Other hammer toe(s) (acquired), left foot (M20.42) Active confirmed Problem Atherosclerosis of [place] artery of both lower extremities, with unspecified presence of clinical manifestation (I70.203) Active confirmed Vital Signs Blood pressure diastolic 64 mm Hg 06/06/2024 Height 5 ft 4 in in 06/06/2024 Blood pressure systolic 102 mm Hg 06/06/2024 Weight 121 lbs 06/06/2024 BMI 20.77 kg/m2 06/06/2024 Encounters Encounter Location Date Provider Diagnosis [address] [address] 11/02/2023 Ariana Perica Atherosclerosis of ham[place] artery of both lower extremities, with unspecified presence of clinical manifestation I70.203 ; Tinea unguium B35.1 ; Pain in right toe(s) M79.674 ; Pain in left toe(s) M79.675 ; Other hammer toe(s) (acquired), right foot M20.41 and Other hammer toe(s) (acquired), left foot M20.[address] [address] 01/11/2024 Ariana Perica Atherosclerosis of [place] artery of both lower extremities, with unspecified presence of clinical manifestation I70.203 ; Tinea unguium B35.1 ; Pain in right toe(s) M79.674 and Pain in left toe(s) M79.[address] [address] 03/28/2024 Ariana Perica Atherosclerosis of [place] artery of both lower extremities, with unspecified presence of clinical manifestation I70.203 ; Tinea unguium B35.1 ; Pain in right toe(s) M79.674 ; Pain in left toe(s) M79.675 and Edema, lower extremity R60.[address] [address] 06/06/2024 Ariana Garcia Atherosclerosis of [place] artery of both lower extremities, with unspecified presence of clinical manifestation I70.203 ; Tinea unguium B35.1 ; Pain in right toe(s) M79.674 and Pain in left toe(s) M79.[address] [address] 09/14/2023 Ariana Garcia Assessments Encounter Date Diagnosis (ICD Code) Assessment Notes Treatment Notes Treatment Clinical Notes Section Notes 11/02/2023 Atherosclerosis of hamilton artery of both lower extremities, with unspecified presence of clinical manifestation (ICD-10 - I70.203) 01/11/2024 Tinea unguium (ICD-10 - B35.1) 01/11/2024 Atherosclerosis of [place] artery of both lower extremities, with unspecified presence of clinical manifestation (ICD-10 - I70.203) 03/28/2024 Atherosclerosis of [place] artery of both lower extremities, with unspecified presence of clinical manifestation (ICD-10 - I70.203) 06/06/2024 Tinea unguium (ICD-10 - B35.1) 06/06/2024 Atherosclerosis of hamilton artery of both lower extremities, with unspecified presence of clinical manifestation (ICD-10 - I70.203) 06/06/2024 Pain in right toe(s) (ICD-10 - M79.674) 03/28/2024 Tinea unguium (ICD-10 - B35.1) 01/11/2024 Pain in right toe(s) (ICD-10 - M79.674) 11/02/2023 Tinea unguium (ICD-10 - B35.1) 11/02/2023 Pain in right toe(s) (ICD-10 - M79.674) 01/11/2024 Pain in left toe(s) (ICD-10 - M79.675) 03/28/2024 Pain in right toe(s) (ICD-10 - M79.674) 06/06/2024 Pain in left toe(s) (ICD-10 - M79.675) 03/28/2024 Pain in left toe(s) (ICD-10 - M79.675) 11/02/2023 Pain in left toe(s) (ICD-10 - M79.675) 11/02/2023 Other hammer toe(s) (acquired), right foot (ICD-10 - M20.41) 11/02/2023 Other hammer toe(s) (acquired), left foot (ICD-10 - M20.42) 03/28/2024 Edema, lower extremity (ICD-10 - R60.0) Plan Of Treatment Next Appt Details Provider Name:Ariana bruno, 08/23/2024 01:00:00 PM, [address] [place] [address], [phone], Insurance Providers Payer Name Payer Address Payer Phone Subscriber Number Group Number Insured Name Patient Relationship to Insured Coverage Start Date Coverage End Date [facility] [employer] Claims [address] [place] [id number] Bridget Rabago Self - patient is the insured Medical (General) History Medical History History ICD Code Anxiety Arthritis asthma Back,Hip,and Knee pain CAD (Cholesterol) covid-19 Glaucoma Heart disease High blood pressure Lung disease Osteoporosis Psoriasis/eczema Stroke Measles Mumps Chicken pox Vascular grafts Broken hip Surgical History Surgery Date(Month/Year) shoulder surgery vein surgery clavical surgery aortic anuerism teeth extraction partial hip replacement 02/08/24
--- OUTSIDE RECORDS SUMMARY | 2024-06-26 08:54 | XMS_ITS ---
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 Medications Medication SIG (Take, Route, Frequency, Duration) Notes Start Date End Date Status oxygen prn Active Latanoprost Active Eliquis 5 MG TAKE 1 TABLET BY KLEVER TH TWICE A DAY Oral for 30 Days Not-Taking Metoclopramide HCl 10 MG 1 tablet before meals Orally Twice a day for 30 day(s) PRN Active Nitroglycerin 0.4 MG as directed Sublingual PRN Active Omeprazole 20 MG TAKE 1 CAPSULE BY MOUTH TWICE A DAY Oral for 90 Days Active Lisinopril 10 MG TAKE 1 TABLET BY KLEVER TH EVERY DAY FOR 30 DAYS Oral for 90 Days Active Vitamin D3 25 MCG (1000 UT) TAKE 1 TABLET BY MOUTH EVERY DAY FOR 30 DAYS Oral for 90 Days Active Albuterol Sulfate 09/14/2023 A ctive Advair HFA 115-21 MCG/ACT INHALE 2 PUFFS BY MOUTH EVERY 12 HOURS Inhalation for 90 Days Active Vitamin B-12 1000 MCG TAKE 1 TABLET BY M OUTH EVERY DAY FOR 90 DAYS Oral for 90 Days Active Creon 36491-91995 UNIT Oral for 30 Days Active Calcium 600 MG 1 tablet with meals Orally Twice a day for 30 day(s) 09/14/2023 Active Baby Aspirin Active Atorvastatin Calcium 80 MG Oral for 90 Days Active Social History Tobacco Use: Social History Observation Description Date Details (start date - stop date) Former Smoker NA - NA Tobacco Use/Smoking Question Answer Notes Are you a: former smoker Additional Findings: Tobacco Non-User Current no n-smoker Tobacco use other than smoking: Question Answer Notes Are you an other tobacco user? No Vital Signs Height 5 ft 4 in in 06/06/2024 Weight 121 lbs 06/06/2024 BMI 20.77 kg/m2 06/06/2024 Blood pressure systolic 102 mm Hg 06/06/20 24 Blood pressure diastolic 64 mm Hg 024 Encounters Encounter Location Date Provider Diagnosis [facility] [address] [place] [address] 06/06/2024 Ariana Jose Atherosclerosis of [place] artery of both lower extremities, with unspecified presence of clinical manifestation I70.203 ; Tinea unguium B35.1 ; Pain in right toe(s) M79.674 and Pain in left toe(s) M79.675 Assessments Encounter Date Diagnosis (ICD Code) Assessment Notes Treatment Notes Treatment Clinical Notes Section Notes 06/06/2024 Atherosclerosis of [place] artery of both lower extremities, with unspecified presence of clinical manifestation (ICD-10 - I70.203) 06/06/2024 Tinea unguium (ICD-10 - B35.1) 06/06/2024 Pain in right toe(s) (ICD-10 - M79.674) 06/06/2024 Pain in left toe(s) (ICD-10 - M79.675) Plan Of Treatment Next Appt Details Follow Up: 2 Months, Reason: Provider Name:Arianabeba bruno, 08/23/2024 01:00:00 PM, [address] [place], [address], Procedure Notes * Category Sub-Category Detail Notes Debride Nail 6-10 Nail debridement Performance o f this nail treatment by a nonprofessional would put this patients foot and overall health at risk. Therefore, debridement to affected nail(s), as described in exam, was performed extensively to reduce/remove overall nail length, girth, thickness, subungual debris, and necrotic tissue, by manual and/or electrical means through the use of a nail nipper and/or dremel-type coffee grinder, to a more viable healthy nail plate or bed tissue 6-10 nails in total. Silver nitrate was used for any petechial bleeding as necessary. Definitive antifungal treatment options, both pharmaceutical and surgical, have been reviewed and discussed with the patient. The patient solely prefers the use of intermittent/as needed professional debridement services for their nail condition and understands the need for additional periodic treatments to maintain effectiveness in symptomatic relief - 44321 Keratoma Treatment Parring or Cutting o f Benign Hyperkeratotic Lesion(s) (-57) More than 4 Lesions - The Benign hyperkeratotic lesions, ( 7) in total, locations as stated and described in exam, were pared, and/or cut utilizing a sterile 15 blade, tissue nippers, and/or power [employer] instrumentation - 01485 Progress Notes * Linn RABAGOOB:1945 (78 yo F)Acc No.[id number]:06/06/2024 Progress Note Patient:?Bridget RABAGO Provider:?Ariana Garcia DPM :1945???Age:78 Y???Sex:Female D ate:06/06/2024 Address:[address] [place] [address] Pcp:Pipe Washburn Subjective: * Chief Complaints: * ???At Risk FootcarePainful N ail(s) aggrevated by shoes and causing difficulty standing/walking. * HPI: ???At Risk footcare:?Pt States Last PCP Visit:?Date?06/05/2024 * ROS:?General/Constitutional:?Nausea?denies.?Vomiting?denies.?Hunger Thirst?denies.?Loss appetite?denies.?Chills?denies.?Fatigue?denies.?Fever?denies.?Night Sweats?denies.?Unexplained weight loss?denies.?Unexplained [...] than smoking?Are you an other tobacco user??No * Medications:?Takingoxygen , Notes to Pharmacist: prnMetoclopramide HCl 10 MG Tablet 1 tablet before meals Orally Twice a day , Notes to Pharmacist: PRNNitroglycerin 0.4 MG Tablet Sublingual as directed Sublingual , Notes to Pharmacist: PRNLatanoprost Baby Aspirin Atorvastatin Calcium 80 MG Tablet Oral Creon 11794-95829 UNIT Capsule Delayed Release Particles Oral Calcium 600 MG Tablet 1 tablet with meals Orally Twice a day Vitamin B-12 1000 MCG Tablet TAKE 1 [...] HOURS Inhalation Albuterol Sulfate Taking oxygen , Notes to Pharmacist: prnTaking Metoclopramide HCl 10 MG Tablet 1 tablet before meals Orally Twice a day , Notes to Pharmacist: PRNTaking Nitroglycerin 0.4 MG Tablet Sublingual as directed Sublingual , Notes to Pharmacist: PRNTaking Latanoprost Taking Baby Aspirin Taking Atorvastatin Calcium 80 MG Tablet Oral Taking Creon 48806-94055 UNIT Capsule Delayed Release Particles Oral Taking Calcium 600 MG Tablet 1 tablet with meals Orally Twice a day Taking Vitamin B-12 1000 MCG Tablet TAKE 1 [...] 21, BMI: 20.77, Shoe size: 9, BP: 102/64 mm Hg, Ht- cm: 162.56 cm, Wt-k.88 [...] B/L.? Assessment: * Assessment: 1.?Tinea unguium - B35.1???2 .?Atherosclerosis of [place] artery of both lower extremities, with unspecified presence of clinical manifestation - I70.203 (Primary)???3.?Pain in right toe(s) - M79.674???4.?Pain in left toe(s) - M79.675??? Plan: * Treatment: * Procedures:?Debride Nail 6-10:?Nail debridement?Performance of this nail treatment by a nonprofessional would put this patients foot and overall health at risk. Therefore, debridement to affected nail(s), as described in exam, was performed extensively to reduce/remove overall nail length, girth, thickness, subungual debris, and necrotic tissue, by manual and/or electrical means through the use of a nail nipper and/or dremel-type coffee grinder, to a more viable healthy nail plate or bed tissue 6-10 nails in total. Silver nitrate was used for any petechial bleeding as necessary. Definitive antifungal treatment options, both pharmaceutical and surgical, have been reviewed and discussed with the patient. The patient solely prefers the use of intermittent/as needed professional debridement services for their nail condition and understands the need for additional periodic treatments to maintain effectiveness in symptomatic relief - 92359.?Keratoma Treatment:?Parring or Cutting of Benign Hyperkeratotic Lesion(s)?(-57) More than 4 Lesions - The Benign hyperkeratotic lesions, ( 7) in total, locations as stated and described in exam, were pared, and/or cut utilizing a sterile 15 blade, tissue nippers, and/or power dremel instrumentation - 04620.? * Procedure Codes:?71553 DEBRI DE NAIL, 6 OR MORE, Modifiers: XS 27377 TRIM SKIN LESIONS, OVER 4, Modifiers: XS , Q8 * Follow Up:?2 Months * Images: * Sign off status: Completed true * Provider:?Ariana Garcia DPM Date:? Generated for Vern hernández/Claudio/Hina on:?06/26/2024 08:54 AM EST History and Physical [...]
== END 2024-06-26 09:10 | disposition home or self-care (01) ==
PROVIDERS: PCP Physician Assistant; Visit Provider Hospitalist
DX: J43.2 Centrilobular emphysema (principal); J96.11 Chronic respiratory failure with hypoxia
CPT/HCPCS: 99214; G2211

== ENCOUNTER → 2024-06-26 08:46 | Outpatient (BNVA) | payer OTHER, SELFPAY | PROVIDERS: PCP Physician Assistant; Visit Provider Hospitalist | DX: J43.2 Centrilobular emphysema (principal); J96.11 Chronic respiratory failure with hypoxia; F17.210 Nicotine dependence, cigarettes, uncomplicated | CPT/HCPCS: 99212 ==

== ENCOUNTER 2024-10-24 08:47 | Outpatient (AMB) | payer OTHER, MEDICAID, SELFPAY ==
[2024-10-24 08:51] VITALS: BP 110/64; PULSE 93; BMI 22.3
--- NOTE | 2024-10-24 08:51 | A.OFFVIS_ITS ---
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 Allergies No Known Allergies Allergy (Verified 06/26/24 08:55) Medication List - Last Reconciled 10/24/24 by Bucky Lawler MD acetaminophen 650 mg (2 x 325 mg) PO Q6H PRN albuterol sulfate 2.5 mg inhalation Q6H PRN albuterol sulfate 90 mcg/actuation 2 inhalations inhalation Q4H PRN aspirin (Adult Aspirin Regimen) 81 mg PO DAILY atorvastatin 80 mg PO DAILY calcium carbonate 500 mg PO BID cholecalciferol (vitamin D3) 25 mcg PO DAILY commode (bedside commode) As directed cyanocobalamin (vitamin B-12) 1,000 mcg PO DAILY fluticasone propion-salmeterol 113-14 mcg/actuation (AirDuo RespiClick) 1 inh inhalation Q12H 30 days fluticasone propion-salmeterol 115-21 mcg/actuation (Advair HFA) 2 puffs inhalation Q12H 30 days latanoprost 0.005% 1 drp ophthalmic (eye) BEDTIME eulnmu-qzujupxb-nhlvsnd 24,000-76,000 -120,000 unit (Creon) 1 cap PO TIDAC 30 days lisinopril 10 mg PO DAILY metoclopramide HCl 10 mg PO Q6H PRN nebulizers As directed nitroglycerin 0.4 mg sublingual Q5M PRN omeprazole 20 mg PO BID@0630,1630 oxycodone 5 mg PO Q6H PRN [transport wheelchair As directed] triamcinolone acetonide 0.1% 1 appl topical DAILY 30 days [wheelchair cushion As directed] HPI Comments Details: Bridget returns for follow-up regarding coronary artery disease. She also has vascular disease. Also has significant emphysema. She has longstanding shortness of breath related to her pulmonary issues but no clear-cut angina. Shortness of breath is just about the same as before. She is on supplemental oxygen. Sharp chest pains which are nonexertional and can happen randomly and also longstanding. History of syncope in the past and at that time, lisinopril was decreased due to low blood pressure. No recent concerns from that Exercise The patient reports low levels of physical activity, predominantly watching television, with no specific exercise regimen mentioned. [facility] Medical History (Updated 06/26/24 @ 20:05 by Maico Perez MD) Chronic respiratory failure COPD (chronic obstructive pulmonary disease) Left ulnar fracture COPD (chronic obstructive pulmonary disease) COVID-19 Early satiety Abdominal bloating COPD exacerbation Essential hypertension Precordial chest pain Tachycardia Dyspnea CVA (cerebral vascular accident) Atherosclerotic cardiovascular disease Psoriasis Hydroureter, right Pernicious anemia Raynauds disease Hernia Emphysema lung Emphysema of lung Asthma History of pyloric channel ulcer Glaucoma Mild acid reflux Surgical History S/P cardiac catheterization H/O carotid endarterectomy (04/01/20) History of AAA (abdominal aortic aneurysm) repair Hx of shoulder surgery Hx of varicose vein stripping Family History Father No problems noted. Mother No problems noted. Sister No problems noted. Sister No problems noted. Sister No problems noted. Sister No problems noted. Sister Cancer Son No problems noted. Social History Household Members: None Housing: House Do you presently have visiting nurse or other home services: Yes Unable to assess alcohol history related to: Unable to respond Alcohol intake: never Patient Tobacco Use Status: Former Tobacco user Tobacco use type: Cigarette Years Smoked: 65 e-Cigarette/Vaping Use: Never Used Second Hand Smoke Exposure: No Advance Directives Date on File: 06/11/21 service: No Current occupational status: retired Cognitive needs: Yes Hearing needs: No Vision needs: Yes Review of Systems Const Denies chills, Denies fatigue, Denies fever(s), Denies frequent falls, Denies weakness, Denies weight gain and Denies weight loss ENT Denies dizziness Card Reports chest pain, Denies leg edema, Denies lightheadedness, Denies palpitations, Denies dyspnea, Denies dyspnea on exertion, Denies orthopnea and Denies other (loss of consciousness) Resp Denies cough, Denies dyspnea and Denies dyspnea on exertion GI Denies hematochezia and Denies change in stool character Musc Denies abnormal gait, Denies muscle weakness, Denies numbness, Denies radiating pain into limb and Denies tingling Neuro Denies abnormal gait, Denies dizziness, Denies frequent falls, Denies numbness, Denies tingling and Denies weakness Endo Denies fatigue and Denies palpitations Physical Exam Vital Signs: Last Vital Signs Pulse 93 10/24/24 08:51 BP 110/64 10/24/24 08:51 BMI result Body Mass Index 22.3 Const General: comfortable and no acute distress Orientation/consciousness: patient oriented x3 HEENT Other: Unremarkable Head: Yes normal to inspection Neck Neck: Yes normal visual inspection Chest Chest palpation & inspection: normal inspection of the chest Resp Auscultation: diminished lung sounds Cardio Palpation: normal PMI Heart sounds: S1 normal heart sound present, S2 normal heart sound present, no gallops, Murmur heart sound present systolic I/ and at the right sternal border and no rubs GI Palpation (GI): Soft to palpation Back/Spine/Pelvis Other: unremarkable Skin General skin exam: no rashes or lesions noted Neuro General: patient oriented x3 Extrem General: Yes normal to inspection Psych Mental Status: mental status grossly normal Office Procedures EKG Details: EKG with underlying sinus rhythm at 93/Min; sinus arrhythmias; cannot exclude old anterior infarct but more likely from body habitus; [place]. [id number]-[id number], Complete Assessment & Plan Assessment & Plan (1) Atherosclerotic cardiovascular disease: Code(s): I25.10 - Atherosclerotic heart disease of [place] coronary artery without angina pectoris Category: Medical Plan: Cardiac catheterization 2021- moderate disease in the LAD and RCA. Non dominant RCA. No interventions. Clinically, no angina. From a vascular standpoint, she has a history of abdominal aortic aneurysm, carotid stenosis, strokes. Medical therapy as currently on. (2) Aortic stenosis: Code(s): I35.0 - Nonrheumatic aortic (valve) stenosis Category: Medical Qualifiers: Cardiac valve disease etiology: nonrheumatic Qualified Code(s): I35.0 - Nonrheumatic aortic (valve) stenosis Plan: In the last echocardiogram, reported moderate aortic stenosis. Mean gradient 28 mm Hg with a calculated valve area of 1.3 cm2. To be rechecked. (3) Essential hypertension: Code(s): I10 - Essential (primary) hypertension Category: Medical Plan: Stable. Plan During the consultation, I discussed the likely non-cardiac nature of the sharp chest pain given its random occurrence and lack of exacerbation on exertion. I proposed repeating the heart ultrasound due to previously noted valve restrictions and cardiac history. I explained the rationale for more frequent cardiac follow-ups at six-month intervals, given her age and potential symptom progression. The risks and benefits of continued monitoring and medication regimens were also discussed. I assured the patient that results from upcoming tests would guide any necessary adjustments to the treatment plan. She expressed understanding and agreement with the planned interventions. Orders: Orders CA echo transthoracic complete Today I35.0 - Nonrheumatic aortic (valve) stenosis Patient Instructions: - Continue existing medications as prescribed. - Schedule and attend the repeat heart ultrasound as recommended. - Monitor symptoms closely and seek medical attention if pain worsens or new symptoms arise. - Attend follow-up appointments every six months to reassess cardiac and respiratory status. - Maintain the continuous use of oxygen therapy as directed and monitor respiratory symptoms, reporting any significant changes. Coding Level of Care Code Est Pt Level 4 (24815) Complex EM visit Add On G2211 Diagnoses Atherosclerotic cardiovascular disease I25.10 Nonrheumatic aortic valve stenosis I35.0 Cardiac valve disease etiology: nonrheumatic Essential hypertension I10 CPT Codes EKG - CPT: 39681-Jnvsvtxeglrduvdhn, Complete ([id number])
--- OUTSIDE RECORDS SUMMARY | 2024-10-24 09:10 | XMS_ITS ---
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 Pipe Washburn Primary Care Provider Unavailab Ariana Willis Unavailable [phone] Allergies No Known Allergies REASON FOR VISIT [...] DAYS Oral for 90 Days Active Creon 39290-41070 UNIT Oral for 30 Days Active Calcium [...] 024 Encounters Encounter Location Date Provider Diagnosis [facility] [address] [place] [address] 06/06/2024 Ariana Garcia Atherosclerosis of [place] artery of both lower extremities, with unspecified presence of clinical manifestation I70.203 ; Tinea unguium B35.1 ; Pain in right toe(s) M79.674 and Pain in left toe(s) M79.675 Assessments Encounter Date Diagnosis (ICD Code) Assessment Notes Treatment Notes Treatment Clinical Notes Section Notes 06/06/2024 Atherosclerosis of [place] artery of both lower extremities, with unspecified presence of clinical manifestation (ICD-10 - I70.203) 06/06/2024 Tinea unguium (ICD-10 - B35.1) 06/06/2024 Pain in right toe(s) (ICD-10 - M79.674) 06/06/2024 Pain in left toe(s) (ICD-10 - M79.675) Plan Of Treatment Next Appt Details Follow Up: 2 Months, Reason: Provider Name:Ariana bruno, 11/21/2024 09:30:00 AM, [address] [place], [address], Procedure Notes * Category Sub-Category Detail Notes [...] use of a nail nipper and/or dremel-type platen grinder, to a more viable healthy nail [...] to maintain effectiveness in symptomatic relief - 61152 Keratoma Treatment Parring or Cutting o f Benign Hyperkeratotic Lesion(s) (-57) More than 4 Lesions - The Benign hyperkeratotic lesions, ( 7) in total, locations as stated and described in exam, were pared, and/or cut utilizing a sterile 15 blade, tissue nippers, and/or power [employer] instrumentation - 74956 Progress Notes * Linn RABAGOOB:1945 (78 yo F)Acc No.[id number]:06/06/2024 Progress Note Patient:?Bridget RABAGO Provider:?Ariana Garcia DPM :1945???Age:78 Y???Sex:Female D ate:06/06/2024 Address:[address] [place] [address] Pcp:Pipe Washburn Subjective: * Chief Complaints: * [...] Atorvastatin Calcium 80 MG Tablet Oral Creon 02137-46235 UNIT Capsule Delayed Release Particles Oral Calcium [...] Calcium 80 MG Tablet Oral Taking Creon 80751-78006 UNIT Capsule Delayed Release Particles Oral Taking [...] Assessment: 1.?Tinea unguium - B35.1???2 .?Atherosclerosis of [place] artery of both lower extremities, with unspecified [...] use of a nail nipper and/or dremel-type platen grinder, to a more viable healthy nail [...] to maintain effectiveness in symptomatic relief - 55488.?Keratoma Treatment:?Parring or Cutting of Benign Hyperkeratotic Lesion(s)?(-57) More than 4 Lesions - The Benign hyperkeratotic lesions, ( 7) in total, locations as stated and described in exam, were pared, and/or cut utilizing a sterile 15 blade, tissue nippers, and/or power dremel instrumentation - 29440.? * Procedure Codes:?16422 DEBRI DE NAIL, 6 OR MORE, Modifiers: XS 50389 TRIM SKIN LESIONS, OVER 4, Modifiers: XS , Q8 * Follow Up:?2 Months * Images: * Sign off status: Completed true * Provider:?Ariana Garcia DPM Date:? Generated for Vern hernández/Claudio/Hina on:?10/24/2024 09:10 AM EDT History and Physical Notes * HPI (History of Present Illness) Category Sub-Category Detail Notes Category Not es At Risk footcare Pt States Last PCP Visit: Date: 4 Examination Category Sub-Category Detail Notes Category Not es Dermatologic SKIN FINDINGS: Skin exam reveal s Keratotic lesion(s) located at TA T4 T5 SUB MTH (s) 5 3 B/L Vascular DP PULSES (B): 0/4, B/L PT PULSES (B): 0/4, B/L CAPILLARY FILL TIME: delayed, all digits , B/L TEMPERTURE GRADIENT (C): decreased, cool to cool, proximal to distal, B/L TROPHIC CONDITION-TEXTURE/ELASTICITY/TURGOR/HAIR GROWTH (B): decreased, B/L EDEMA (C): 2/4 B/L CLAUDICATION (C): denies, B/L REST PAIN: denies, B/L EJNI'S SIGN: absent, B/L PALPABLE CORDS: absent, B/L Nails NAILS are: Elongated, overg rown, dystrophic, lytic, greater than 3mm thick, discolored and friable with crumbly malodorous subungual debris, with pain on palpation 1-5 B/L
--- OUTSIDE RECORDS SUMMARY | 2024-10-24 09:11 | XMS_ITS | Patient Health Record ---
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 Name Role Phone Pipe Washburn Primary Care Provider UnavailAriana Gongora Unavailable [phone] Allergies No Known Allergies Reason For Referral No Information Medications Medication SIG (Take, Route, Frequency, Duration) Notes Start Date End Date Status Calcium 600 MG 1 tablet with meals Orally Twice a day for 30 day(s) 09/14/2023 Active Creon 11761-52664 UNIT Oral for 30 Days Active Latanoprost Active Eliquis 5 MG TAKE 1 TABLET BY KLEVER TH TWICE A DAY Oral for 30 Days Not-Taking Nitroglycerin 0.4 MG as directed Sublingual PRN Active Albuterol Sulfate 09/14/2023 A ctive Atorvastatin Calcium 80 MG Oral for 90 Days Active Baby Aspirin Not-Jm ing Omeprazole 20 MG TAKE 1 CAPSULE BY MOUTH TWICE A DAY Oral for 90 Days Active Vitamin D3 25 MCG (1000 UT) TAKE 1 TABLET BY MOUTH EVERY DAY FOR 30 DAYS Oral for 90 Days Active Metoclopramide HCl [...] 90 DAYS Oral for 90 Days Active Social History Tobacco Use: Social History Observation Description Date Details (start date - stop date) Never Smoker NA - NA Alcohol Screen Question Answer Notes Did you have a drink containing alcohol in the p ast year? No Points 0 Interpretation Negative Tobacco use other than smoking: Question Answer Notes Are you an other tobacco user? 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, with unspecified presence of clinical manifestation (I70.203) Active confirmed Vital Signs Blood pressure diastolic 68 mm Hg 08/23/2024 Height 5 ft 4 in in 08/23/2024 Blood pressure systolic 112 mm Hg 08/23/2024 Weight 122 lbs 08/23/2024 BMI 20.94 kg/m2 08/23/2024 Encounters Encounter Location Date Provider Diagnosis [address] [address] 11/02/2023 Ariana Perica 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, with unspecified presence of clinical manifestation I70.203 ; Tinea unguium B35.1 ; Pain in right toe(s) M79.674 ; Pain in left toe(s) M79.675 ; Other hammer toe(s) (acquired), right foot M20.41 and Other hammer toe(s) (acquired), left foot M20.42 [facility] [address] 01/11/2024 Ariana Perica 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, with unspecified presence of clinical manifestation I70.203 ; Tinea unguium B35.1 ; Pain in right toe(s) M79.674 and Pain in left toe(s) M79.[address] [address] 03/28/2024 Ariana Perica 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, with unspecified presence of clinical manifestation I70.203 ; Tinea unguium B35.1 ; Pain in right toe(s) M79.674 ; Pain in left toe(s) M79.675 and Edema, lower extremity R60.[address] [address] 06/06/2024 Ariana Perica 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, with unspecified presence of clinical manifestation I70.203 ; Tinea unguium B35.1 ; Pain in right toe(s) M79.674 and Pain in left toe(s) M79.[address] [address] 08/23/2024 Ariana Perica 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, with unspecified presence of clinical manifestation I70.203 ; Xerosis of skin L85.3 ; Tinea unguium B35.1 ; Pain in right toe(s) M79.674 and Pain in left toe(s) M79.675 Assessments Encounter Date Diagnosis (ICD Code) Assessment Notes Treatment Notes Treatment Clinical Notes Section Notes 11/02/2023 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, with unspecified presence of clinical manifestation (ICD-10 - I70.203) 01/11/2024 Tinea unguium (ICD-10 - B35.1) 01/11/2024 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, with unspecified presence of clinical manifestation (ICD-10 - I70.203) 03/28/2024 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, with unspecified presence of clinical manifestation (ICD-10 - I70.203) 06/06/2024 Tinea unguium (ICD-10 - B35.1) 06/06/2024 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, with unspecified presence of clinical manifestation (ICD-10 - I70.203) 08/23/2024 Xerosis of skin (ICD-10 - L85.3) 08/23/2024 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, with unspecified presence of clinical manifestation (ICD-10 - I70.203) 08/23/2024 Tinea unguium (ICD-10 - B35.1) 06/06/2024 Pain [...] Pain in left toe(s) (ICD-10 - M79.675) 08/23/2024 Pain in right toe(s) (ICD-10 - M79.674) 08/23/2024 Pain in left toe(s) (ICD-10 - M79.675) 03/28/2024 Pain in left toe(s) (ICD-10 - M79.675) 11/02/2023 Pain in left toe(s) (ICD-10 - M79.675) 11/02/2023 Other hammer toe(s) (acquired), right foot (ICD-10 - M20.41) 11/02/2023 Other hammer toe(s) (acquired), left foot (ICD-10 - M20.42) 03/28/2024 Edema, lower extremity (ICD-10 - R60.0) Plan Of Treatment Next Appt Details Provider Name:Ariana bruno, 11/21/2024 09:30:00 AM, [address] [place], [address], Insurance Providers Payer Name Payer Address Payer Phone Subscriber Number Group Number Insured Name Patient Relationship to Insured Coverage Start Date Coverage End Date [facility] [employer] Claims [address] [place] [id number] [phone] [id number] Bridget Rabago Self - patient is the [...]
--- OUTSIDE RECORDS SUMMARY | 2024-10-24 09:11 | XMS_ITS ---
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 Name Role Phone Pipe Washburn Primary Care Provider Unavailab Ariana Willis Unavailable [phone] Allergies No Known Allergies REASON FOR VISIT At Risk Footcare, Painful Nail(s) aggrevated by shoes and causing difficulty standing/walking., Skin problem(s) Medications Medication SIG (Take, Route, Frequency, Duration) Notes Start Date End Date Status Omeprazole 20 MG TAKE 1 CAPSULE BY [...] day for 30 day(s) 09/14/2023 Active Creon 99121-65935 UNIT Oral for 30 Days Active Metoclopramide HCl 10 MG 1 tablet before meals Orally Twice a day for 30 day(s) PRN Active Latanoprost Active Nitroglycerin 0.4 MG as directed Sublingual PRN Active Atorvastatin Calcium 80 MG Oral for 90 Days Active Baby Aspirin Not-Jm ing Advair HFA 115-21 MCG/ACT INHALE 2 PUFFS BY MOUTH EVERY 12 HOURS Inhalation for 90 Days Active oxygen prn Active Lisinopril 10 MG TAKE 1 TABLET BY KLEVER TH EVERY DAY FOR 30 DAYS Oral for 90 Days Active Eliquis 5 MG TAKE 1 TABLET BY KLEVER TH TWICE A DAY Oral for 30 Days Not-Taking Albuterol Sulfate 09/14/2023 A ctive Social History Tobacco Use: Social History Observation Description Date Details (start date - stop date) Never Smoker NA - NA Tobacco use other than smoking: Question Answer Notes Are you an other tobacco user? No Tobacco Control (Standard) Question Answer Notes Tobacco use: Nonsmoker Vital Signs Height 5 ft 4 in in 08/23/2024 Weight 122 lbs 08/23/2024 BMI 20.94 kg/m2 08/23/2024 Blood pressure systolic 112 mm Hg 08/23/19 25 Blood pressure diastolic 68 mm Hg 025 Encounters Encounter Location Date Provider Diagnosis [facility] [place] [address] [place] [address] 08/23/2024 Ariana Garcia Atherosclerosis of [place] artery of both lower extremities, with unspecified presence of clinical manifestation I70.203 ; Xerosis of skin L85.3 ; Tinea unguium B35.1 ; Pain in right toe(s) M79.674 and Pain in left toe(s) M79.675 Assessments Encounter Date Diagnosis (ICD Code) Assessment Notes Treatment Notes Treatment Clinical Notes Section Notes 08/23/2024 Atherosclerosis of [place] artery of both lower extremities, with unspecified presence of clinical manifestation (ICD-10 - I70.203) 08/23/2024 Xerosis of skin (ICD-10 - L85.3) 08/23/2024 Tinea unguium (ICD-10 - B35.1) 08/23/2024 Pain in right toe(s) (ICD-10 - M79.674) 08/23/2024 Pain in left toe(s) (ICD-10 - M79.675) Plan Of Treatment Next Appt Details Follow Up: 2 Months, Reason: Provider Name:Ariana bruno, 11/21/2024 09:30:00 AM, [address] [place] [address], [phone], Procedure Notes * Category Sub-Category Detail Notes Debride Nail 6-10 Nail debridement Due to the cl inical pathology outlined in the exam findings, performance of this nail treatment is medically necessary as its management by an unskilled/untrained nonprofessional would put this patients foot and overall health at risk. Therefore, debridement to affected nail(s), as described in exam ( TA, T1, T2, T3, T4, T5, T6, T7, T8, T9, ), was performed exclusively by the physician of record to reduce/remove overall nail length, girth, thickness, subungual debris, and necrotic tissue, by manual and/or electrical means through the use of a nail nipper and/or dremel-type precision thread grinder operator, to a more viable healthy nail plate [...] to maintain effectiveness in symptomatic relief - 95821 Keratoma Treatment Parring or Cutting o f Benign Hyperkeratotic Lesion(s) (-57) More than 4 Lesions - Due to the at risk nature of the patients medical condition as documented in the exam findings, performance of this keratoderma treatment is medically necessary as its management by an unskilled/untrained nonprofessional would put this patients foot and overall health at risk. Therefore, the benign hyperkeratotic lesions, ( 7 ) in total, locations as stated and described in the exam ( TA T4 T5 SUB MTH (s) 5 1 B/L ), were pared, and/or cut utilizing a sterile 15 blade, tissue nippers, and/or power dremel instrumentation by the physician of record - 91815 Progress Notes * Dia RABAGOneDOB:1945 (79 yo F)Acc No.[id number]:08/23/2024 Progress Note Patient:Bridget ESCOBEDO Provider:?Ariana Garcia DPM :1945???Age:79 Y???Sex:Female D ate:08/23/2024 Address:[address] [place], [place] [id number] Pcp:Pipe Washburn Subjective: * Chief Complaints: * ???At Risk FootcarePainful N ail(s) aggrevated by shoes and causing difficulty standing/walking.Skin problem(s) * HPI: ???At Risk footcare:?Pt States Last PCP Visit:?Date?06/05/2024 ???Skin problems:?Nature:?dryness , scaling.?Location:?B/L .?Duration:?several days.?Course:?worse.?Treatments:?Pt fell after using lotion on feet and now afraid to lotion feet?.? * ROS:?General/Constitutional:?Nausea?denies.?Vomiting?denies.?Hunger Thirst?denies.?Loss appetite?denies.?Chills?denies.?Fatigue?denies.?Fever?denies.?Night Sweats?denies.?Unexplained weight loss?denies.?Unexplained [...] dece ased.?Father: .? * Social History:?Tobacco Use:?Tobacco use other than smoking?Are you an other tobacco user??No ?Tobacco Control (Standard)?Tobacco use:?Nonsmoker ???Miscellaneous:?Caffeine: yes, more than 4 cups per day. ?Children: yes, 1. ?Exercise: no. ?Marital status: . ?Occupation: Retired-[employer]. * Medications:?Takingoxygen , Notes to Pharmacist: prnMetoclopramide HCl 10 MG Tablet 1 tablet before meals Orally Twice a day , Notes to Pharmacist: PRNNitroglycerin 0.4 MG Tablet Sublingual as directed Sublingual , Notes to Pharmacist: PRNLatanoprost Atorvastatin Calcium 80 MG Tablet Oral Creon 17159-32715 UNIT Capsule Delayed Release Particles Oral Calcium [...] , Notes to Pharmacist: PRNTaking Latanoprost Taking Atorvastatin Calcium 80 MG Tablet Oral Taking Creon 72517-62766 UNIT Capsule Delayed Release Particles Oral Taking [...] EVERY 12 HOURS Inhalation Taking Albuterol Sulfate Not- Taking/PRNBaby Aspirin Eliquis 5 MG Tablet TAKE 1 TABLET BY MOUTH TWICE A DAY Oral Medication List reviewed and reconciled with the patientNot-Taking/PRN Baby Aspirin Not- Taking/PRN Eliquis 5 MG Tablet TAKE 1 TABLET BY MOUTH TWICE A DAY Oral Medication List reviewed and reconciled with the patient * Allergies:?N.K.D.A.yes[Aller gies Verified] Objective: * Vitals:?Ht: 5 ft 4 in, Wt: 1 22, BMI: 20.94, Shoe size: 9, BP: 112/68 mm Hg, Ht- cm: 162.56 cm, Wt-k.34 kg. * Examination: ???Vascular: ?DP PULSES (B):? 0/4, B/L.?PT PULSES (B):? 0/4, B/L.?CAPILLARY FILL TIME:? delayed, all digits, B/L.?TROPHIC CONDITION-TEXTURE/ELASTICITY/TURGOR/HAIR GROWTH (B):? decreased, B/L.?TEMPERTURE GRADIENT (C):? decreased, cool to cool, proximal to distal, B/L.?PIGMENTATION:?pale, B/L.?CLAUDICATION (C):?denies, B/L.?REST PAIN:?denies, B/L.?JENI'S SIGN:?absent, B/L.?PALPABLE CORDS:?absent, B/L.?Nails: ?NAILS are:? Elongated, overgrown, dystrophic, lytic, greater than 3mm thick, discolored and friable with crumbly malodorous subungual debris, with pain on palpation, TA, T1, T2, T3, T4, T5, T6, T7, T8, T9.?Dermatologic: ?SKIN FINDINGS:? Skin exam reveals Keratotic lesion(s) located at TA T4 T5 SUB MTH (s) 5?1?B/L , Skin shows sign(s) of, dryness, scaling, in a stocking fashion, no fissure(s) present, B/L.? Assessment: * Assessment: 1.?Xerosis of skin - L85.3 ( Primary)???Specify :Acute problem, Uncomplicated (3)???2.?Atherosclerosis of [place] artery of both lower extremities, with unspecified presence of clinical manifestation - I70.203???3.?Tinea unguium - B35.1???4.?Pain in right toe(s) - M79.674???5.?Pain in left toe(s) - M79.675??? Plan: * Treatment: * Procedures:?Debride Nail 6-10:?Nail debridement?Due to the clinical pathology outlined in the exam findings, performance of this nail treatment is medically necessary as its management by an unskilled/untrained nonprofessional would put this patients foot and overall health at risk. Therefore, debridement to affected nail(s), as described in exam ( TA, T1, T2, T3, T4, T5, T6, T7, T8, T9, ), was performed exclusively by the physician of record to reduce/remove overall nail length, girth, thickness, subungual debris, and necrotic tissue, by manual and/or electrical means through the use of a nail nipper and/or dremel-type precision thread grinder operator, to a more viable healthy nail plate or bed tissue 6- 10 nails in total. Silver nitrate was used for any petechial bleeding as necessary. Definitive antifungal treatment options, both pharmaceutical and surgical, have been reviewed and discussed with the patient. The patient solely prefers the use of intermittent/as needed professional debridement services for their nail condition and understands the need for additional periodic treatments to maintain effectiveness in symptomatic relief - 16795.?Keratoma Treatment:?Parring or Cutting of Benign Hyperkeratotic Lesion(s)?(-57) More than 4 Lesions - Due to the at risk nature of the patients medical condition as documented in the exam findings, performance of this keratoderma treatment is medically necessary as its management by an unskilled/untrained nonprofessional would put this patients foot and overall health at risk. Therefore, the benign hyperkeratotic lesions, ( 7 ) in total, locations as stated and described in the exam (?TA?T4?T5?SUB MTH (s)?5?1?B/L?), were pared, and/or cut utilizing a sterile 15 blade, tissue nippers, and/or power dremel instrumentation by the physician of record - 15811.? * Procedure Codes:?36115 DEBRI DE NAIL, 6 OR MORE, Modifiers: XS 32410 TRIM SKIN LESIONS, OVER 4, Modifiers: XS [...] have encouraged the patient to call the office.?Xerosis:?The patient was counseled on the diagnosis, potential etiologies, and treatment options for their skin condition. We discussed the risks and benefits of each option from performing no treatment, to utilizing OTC topical skin creams/ointments, to utilizing prescription topical creams/ointments, to utilizing customized compounded topical medications and use of nocturnal occlusion with any/all previously detailed therapies. We discussed the advantages and disadvantages of each possible treatment and importance for adherence to all the recommended therapies for optimum success and avoid potential complications such as open sore/infection/possible hospitalization. We discussed the potential effectiveness of each topical preparation as well as each ones possible side effects and/or patient medication interactions. Patient questions re: use, dosage, successful outcomes, and application consistency were reviewed and the patient verbalized that all answers were clearly understood. Due to fall risk pt defers RX for cream, Discussed with the Patient the issues that may arise if he/she does not treat their condition : Pain, fissues, infection and further break down of skin. Pt still defers a rx.? ??Screening/Special Tests:?Fall Risk?Screening:?No falls in the past year ?FALLS: Screening for Future Fall Risk?Have you had any falls with injury in the past year??No * Follow Up:?2 Months * Images: * Sign off status: Completed true * Provider:?Ariana Garcia DPM Date:?06/2025 Generated for Vern hernández/Claudio/Efrenitting on:?10/24/2024 09:11 AM EDT History and Physical Notes * HPI (History of Present Illness) Category Sub-Category Detail Notes Category Not es Skin problems Nature: dryness , scaling Location: B/L Duration: several days Course: worse Treatments: Pt fell after using lotion on feet and now afraid to lotion feet At Risk footcare Pt States Last PCP Visit: Date: 4 Examination Category Sub-Category Detail Notes Category Not es Dermatologic SKIN FINDINGS: Skin exam reveal s Keratotic lesion(s) located at TA T4 T5 SUB MTH (s) 5 1 B/L , Skin shows sign(s) of, dryness, scaling, in a stocking fashion, no fissure(s) present, B/L Vascular DP PULSES (B): 0/4, B/L PT PULSES (B): 0/4, B/L CAPILLARY FILL TIME: delayed, all digits , B/L TEMPERTURE GRADIENT (C): decreased, cool to cool, proximal to distal, B/L TROPHIC CONDITION-TEXTURE/ELASTICITY/TURGOR/HAIR GROWTH (B): decreased, B/L CLAUDICATION (C): denies, B/L REST PAIN: denies, B/L JENI'S SIGN: absent, B/L PALPABLE CORDS: absent, B/L PIGMENTATION: pale, B/L Nails NAILS are: Elongated, overg rown, dystrophic, lytic, greater than 3mm thick, discolored and friable with crumbly malodorous subungual debris, with pain on palpation, TA, T1, T2, T3, T4, T5, T6, T7, T8, T9
--- OUTSIDE RECORDS SUMMARY | 2024-10-24 09:12 | XMS_ITS ---
Author Organization [facility] Address [address] [place] [address] Care Team Providers Care Supply Coordinator Name Role Phone Pipe Washburn Primary Care Provider Unavailab Ariana Willis Unavailable [phone] Allergies No Known Allergies REASON FOR VISIT [...] DAYS Oral for 90 Days Active Creon 94921-74436 UNIT Oral for 30 Days Active Calcium [...] 024 Encounters Encounter Location Date Provider Diagnosis [facility] [place] [address] [place] [address] 03/28/2024 Ariana Garcia Atherosclerosis of [place] artery of both lower extremities, with unspecified presence of clinical manifestation I70.203 ; Tinea unguium B35.1 ; Pain in right toe(s) M79.674 ; Pain in left toe(s) M79.675 and Edema, lower extremity R60.0 Assessments Encounter Date Diagnosis (ICD Code) Assessment Notes Treatment Notes Treatment Clinical Notes Section Notes 03/28/2024 Atherosclerosis of [place] artery of both lower extremities, with unspecified presence of clinical manifestation (ICD-10 - I70.203) 03/28/2024 Tinea unguium (ICD-10 - B35.1) 03/28/2024 Pain in right toe(s) (ICD-10 - M79.674) 03/28/2024 Pain in left toe(s) (ICD-10 - M79.675) 03/28/2024 Edema, lower extremity (ICD-10 - R60.0) Plan Of Treatment Next Appt Details Follow Up: 2 Months, Reason: Provider Name:Ariana bruno, 11/21/2024 09:30:00 AM, [address] [place], [address], Procedure Notes * Category Sub-Category Detail Notes [...] as necessary. Patient chooses, no pharmaceutical tx (02010) Keratoma Treatment Parring or Cutting o f Benign Hyperkeratotic Lesion(s) 37933 ( More than 4 Lesions ) - The Benign hyperkeratotic lesions, as described above were pared, and/or cut utilizing a sterile 15 blade, tissue nippers, and/or dremel, Q8 Progress Notes * Linn RABAGOOB:1945 (78 yo F)Acc No.[id number]:03/28/2024 Progress Note Patient:?Bridget Rabago Provider:?Ariana Garcia DPM :1945???Age:78 Y???Sex:Female D ate:03/28/2024 Address:[address] [place], [place] [id number] Pcp:Pipe Washburn Subjective: * Chief Complaints: * [...] Atorvastatin Calcium 80 MG Tablet Oral Creon 31719-40483 UNIT Capsule Delayed Release Particles Oral Calcium [...] Calcium 80 MG Tablet Oral Taking Creon 19062-94155 UNIT Capsule Delayed Release Particles Oral Taking [...] 3 B/L.? Assessment: * Assessment: 1.?Atherosclerosis of [place] artery of both lower extremities, with unspecified [...] as necessary. Patient chooses, no pharmaceutical tx (29594).?Keratoma Treatment:?Parring or Cutting of Benign Hyperkeratotic Lesion(s)?26087 ( More than 4 Lesions ) - The Benign hyperkeratotic lesions, as described above were pared, and/or cut utilizing a sterile 15 blade, tissue nippers, and/or dremel, Q8.? * Procedure Codes:?98411 DEBRI DE NAIL, 6 OR MORE, Modifiers: XS 77932 TRIM SKIN LESIONS, OVER 4, Modifiers: XS [...] DPM Date:? Generated for Vern hernández/Claudio/Hina on:?10/24/2024 09:11 AM EDT History and Physical [...]
== END 2024-10-24 09:22 | disposition home or self-care (01) ==
LOC: HO.HCS 08:48
PROVIDERS: PCP Physician Assistant; Visit Provider Internal Medicine
DX: I25.10 Atherosclerotic heart disease of native coronary artery without angina pectoris (principal); I35.0 Nonrheumatic aortic (valve) stenosis; I10 Essential (primary) hypertension
CPT/HCPCS: 93010; 99214; G2211

== ENCOUNTER → 2024-10-24 08:47 | Outpatient (BNVA) | payer OTHER, SELFPAY | PROVIDERS: PCP Physician Assistant; Visit Provider Internal Medicine | DX: I25.10 Atherosclerotic heart disease of native coronary artery without angina pectoris (principal); I35.0 Nonrheumatic aortic (valve) stenosis; I10 Essential (primary) hypertension; R07.9 Chest pain, unspecified; J43.9 Emphysema, unspecified; R06.02 Shortness of breath; Z99.81 Dependence on supplemental oxygen; Z87.891 Personal history of nicotine dependence | CPT/HCPCS: 93005; 99212 ==

== ENCOUNTER 2024-10-30 08:37 | Outpatient (REF) | payer OTHER, SELFPAY ==
[2024-10-30 09:00] LABS: Hematocrit 41.3 % (37.0-47.0); Hemoglobin 12.5 g/dl (12.0-16.0); Mean Corpuscular HGB Conc 30.3 g/dl (31.0-35.0); Mean Corpuscular Volume 85.9 fL (80.0-98.0); Mean Platelet Volume 11.6 fL (9.4-12.3); Platelet Count 260 X10*3/uL (160-400); Red Blood Count 4.81 X10*6/uL (4.20-5.50); Red Cell Distribution Width 15.1 % (11.0-16.0); White Blood Count 11.5 X10*3/uL (4.8-10.8)
[2024-10-30 09:38] LABS: Alanine Aminotransferase 9 U/L (0-31); Alkaline Phosphatase 103 U/L (39-117); Anion Gap 13 (12-20); Aspartate Amino Transferase 22 U/L (5-31); Bilirubin Total 0.5 mg/dL (0.0-1.0); Blood Urea Nitrogen 15 mg/dL (9-16); Calcium 9.5 mg/dL (8.4-10.2); Carbon Dioxide 29 mmol/L (22-29); Chloride 104 mmol/L (96-108); Cholesterol 164 mg/dL (<200); Estimated Glomerular Filt Rate > 60; Glucose Fasting 112 mg/dL (60-99); HDL Cholesterol 59 mg/dL (>40); LDL Cholesterol Calculated 85 mg/dL (<100); Potassium 4.6 mmol/L (3.3-5.1); Sodium 141 mmol/L (135-145); Total Protein 7.6 g/dL (6.5-8.0); Triglycerides 102 mg/dL (<150)
== END 2024-10-30 08:38 | disposition home or self-care (01) ==
LOC: HO.LAB 08:37
PROVIDERS: PCP Physician Assistant; Visit Provider Physician Assistant
DX: I10 Essential (primary) hypertension (principal); E78.2 Mixed hyperlipidemia; K21.9 Gastro-esophageal reflux disease without esophagitis
CPT/HCPCS: 36415; 80053; 80061; 85027

== ENCOUNTER 2024-11-06 08:26 | Outpatient (AMB) | payer OTHER, SELFPAY ==
--- NOTE | 2024-11-06 08:29 | MHC.PC.OV ---
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 Public Required: No Accompanied by: niece Allergies No Known Allergies Allergy (Verified 11/06/24 08:38) Medication List - Last Reconciled 11/06/24 by Pipe Washburn PA-C acetaminophen 650 mg (2 x 325 mg) PO Q6H PRN albuterol sulfate 2.5 mg inhalation Q6H PRN albuterol sulfate 90 mcg/actuation 2 inhalations inhalation Q4H PRN aspirin (Adult Aspirin Regimen) 81 mg PO DAILY atorvastatin 80 mg PO DAILY calcium carbonate 500 mg PO BID cholecalciferol (vitamin D3) 25 mcg PO DAILY commode (bedside commode) As directed cyanocobalamin (vitamin B-12) 1,000 mcg PO DAILY fluticasone propion-salmeterol 113-14 mcg/actuation (AirDuo RespiClick) 1 inh inhalation Q12H 30 days fluticasone propion-salmeterol 115-21 mcg/actuation (Advair HFA) 2 puffs inhalation Q12H 30 days latanoprost 0.005% 1 drp ophthalmic (eye) BEDTIME sfdzui-[id number]-dfebcbw 24,000-76,000 -120,000 unit (Creon) 1 cap PO TIDAC 30 days lisinopril 10 mg PO DAILY metoclopramide HCl 10 mg PO Q6H PRN nebulizers As directed nitroglycerin 0.4 mg sublingual Q5M PRN omeprazole 20 mg PO BID@0630,1630 oxycodone 5 mg PO Q6H PRN [transport wheelchair As directed] triamcinolone acetonide 0.1% 1 appl topical DAILY 30 days [wheelchair cushion As directed] Tobacco use date assessed: 11/06/24 Fall risk assessment: No Falls in past year Last assessed Fall Risk: 11/06/24 Dental Screening Dental Screen Date: 11/06/24 Did you have a dental visit in the last 12 months?: Yes Did you have a dental problem in the last 6 months where you did not have access to dental care?: No Was dental information given to patient?: Patient has dentist HPI Follow-up hypertension hyperlipidemia HPI Details Patient is a 79-year-old female here today for follow-up visit. Patient has multiple medical problems including osteoporosis, lumbar spondylosis and stenosis, COPD, history of DVT on Eliquis, peripheral arterial disease, carotid stenosis , abdominal aortic aneurysm, hypertension, hyperlipidemia. .. COPD: Patient followed by pulmonology here in [place], was a former smoker (4 packs a day) Continues on maintenance inhalers with decent affect. She is now O2 dependent via nasal cannula -2 liters/minute. She does report often getting bloody noses from the dry nasal mucosa secondary the oxygen use. She does not want to use any nasal sprays Advised on using humidifier .. DVT : Also followed by vascular surgeon for her carotid stenosis and a abdominal aortic aneurysm, undergoing surveillance imaging. Has had multiple vascular surgeries including abdominal aortic aneurysm repair and carotid endarterectomy. .. AAA: Has a abdominal aortic aneurysm that is being followed by [place] vascular surgeon, has upcoming CT angiogram of the abdomen and January of 2025. .. Hypertension: Blood pressure today in office acceptable, she does report at times having chest discomforts to which she uses nitro which helps relieve her pain. Had followed [facility] in October, with concerns of chest pains at rest and will be sent for cardiac echocardiogram in near future. .. Hyperlipidemia: Patient continues on high-dose statin therapy. Most recent lipid panel showing excellent control over total cholesterol and LDL. Goal LDL to remain below 100, optimally below 70. Laboratory Tests 02/15/24 10/30/24 05:28 08:50 WBC 11.5 H RBC 3.68 L 4.81 D Hgb 9.7 L 12.5 D Creatinine 0.89 Fasting Glucose 112 H Cholesterol 164 LDL Cholesterol, C alc 85 [facility] Medical History (Updated 11/06/24 @ 08:58 by Pipe Washburn PA-C) DVT (deep venous thrombosis) COPD (chronic obstructive pulmonary disease) Left ulnar fracture COPD (chronic obstructive pulmonary disease) COVID-19 Early satiety Abdominal bloating COPD exacerbation Essential hypertension Precordial chest pain Tachycardia Dyspnea Atherosclerotic cardiovascular disease Psoriasis Hydroureter, right Pernicious anemia Raynauds disease Hernia Emphysema lung Asthma History of pyloric channel ulcer Glaucoma Mild acid reflux Surgical History S/P cardiac catheterization H/O carotid endarterectomy (04/01/20) History of AAA (abdominal aortic aneurysm) repair Hx of shoulder surgery Hx of varicose vein stripping Family History Father No problems noted. Mother No problems noted. Sister No problems noted. Sister No problems noted. Sister No problems noted. Sister No problems noted. Sister Cancer Son No problems noted. Social History Household Members: None Housing: House Do you presently have visiting nurse or other home services: Yes Unable to assess alcohol history related to: Unable to respond Alcohol intake: never Patient Tobacco Use Status: Former Tobacco user Tobacco use type: Cigarette Years Smoked: 65 e-Cigarette/Vaping Use: Never Used Second Hand Smoke Exposure: No Advance Directives Date on File: 06/11/21 service: No Current occupational status: retired Cognitive needs: Yes Hearing needs: No Vision needs: Yes Questionnaire PHQ-9 Over the last 2 weeks, how often have you been bothered by any of the following problems? 1. Little interest or pleasure in doing things: not at all 2. Feeling down, depressed, or hopeless: not at all 3. Trouble falling or staying asleep, or sleeping too much: not at all 4. Feeling tired or having little energy: more than half the days 5. Poor appetite or overeating: more than half the days 6. Feeling bad about yourself - or that you are a failure or have let yourself or your family down: more than half the days 7. Trouble concentrating on things, such as reading the newspaper or watching television: not at all 8. Moving or speaking so slowly that other people could have noticed. Or the opposite - being so fidgety or restless that you have been moving around a lot more than usual: not at all 9. Thoughts that you would be better off or of hurting yourself in some way: not at all Total score: 6 Depression Screening Interpretation: Positive Depression Screening Follow-up: Existing condition and Declines treatment Depression Screening Done: Yes 12895 - PHQ-9 Billing: Yes Source: Developed by Maddi HemphillW. Maurizio, Codey Miller and colleagues, with an educational zachary from [employer]. Thrive Questionnaire Date Thrive assessed: 06/05/24 I am a: Patient What is your living situation today?: I have a steady place to live Within the past 12 months, did the food you bought not last and you didn't have the money to get more?: I choose not to answer this question Within the past 12 months, did you worry whether your food would run out before you got money to buy more?: I choose not to answer this question Do you have trouble paying for medicines?: I choose not to answer this question Do you have trouble getting transportation to medical appointments?: I choose not to answer this question Do you have trouble paying your heating and electricity bill?: I choose not to answer this question Do you have trouble taking care of your child, family member or friend?: I choose not to answer this question Do you have trouble with day-to-day activities such as bathing, preparing meals, shopping, managing finances, etc.?: I choose not to answer this question Are you currently unemployed and looking for a job?: I choose not to answer this question Are you interested in more education?: I choose not to answer this question Please select the resources that you would like help with: None Currently or been in a relationship where the following occur: I choose not to answer THRIVE Score: 0 AUDIT C Alcohol Use Questionnaire (AUDIT-C) 1. How often do you have a drink containing alcohol?: Never Total Score: 0 CHARLES-7 AMB Questionnaire CHARLES-7 Date CHARLES - 7 assessed: 11/06/24 Feeling nervous, anxious, or on edge: 3 = Nearly every day Not being able to stop or control worryin = Several days Worrying too much about different things: 1 = Several days Trouble relaxin = Not at all Being so restless that it is hard to sit still: 1 = Several days Becoming easily annoyed or irritable: 1 = Several days Feeling afraid as if something awful might happen: 1 = Several days Total CHARLES-7 score (0-4 normal; 5-9 mild; 10-14 moderate; 15-21 severe): 8 Source: Developed by Maddi Hemphill Kurt Kroenke and colleagues, with an educational zachary from [employer]. CHARLES-7 Assessment Billing CHARLES-7 Assessment Tool: CHARLES-7 Assessment 46006 Review of Systems Const Denies headache(s) Eyes Denies loss of vision ENT Denies vertigo, Denies dizziness, Denies headache(s) and Denies sore throat Card Denies chest pain, Denies leg edema and Denies lightheadedness Resp Denies cough, Denies hemoptysis and Denies wheezing GI Denies abdominal pain, Denies melena, Denies constipation, Denies diarrhea and Denies vomiting Denies urinary frequency, Denies dysuria and Denies urinary urgency Musc Denies arthralgias, Denies joint swelling, Denies numbness and Denies tingling Neuro Denies Abnormal speech present, Denies behavioral changes, Denies vertigo, Denies dizziness, Denies headache(s), Denies loss of vision, Denies memory loss, Denies numbness and Denies tingling Psych Denies anxiety, Denies behavioral changes, Denies depression, Denies memory loss and Denies panic attacks Edwardo/Lymph Denies easy bleeding and Denies easy bruising Aller/Immun Denies wheezing Physical exam (Primary Care) Vital Signs: Last Vital Signs Pulse 97 11/06/24 08:30 BP 126/80 11/06/24 08:30 Pulse Ox 92 11/06/24 08:30 Oxygen Delivery Method Nasal Cannula 11/06/24 08:30 BMI result Body Mass Index 22.1 Tobacco/Smoking Status: Tobacco use Status Tobacco use date assessed 11/06/24 11/06/24 08:35 Patient Tobacco Use Status Former Tobacco user 11/06/24 08:35 Tobacco use type Cigarette 11/06/24 08:35 e-Cigarette/Vaping Use Never Used 11/06/24 08:35 PHQ-9: PHQ-9 Score PHQ-9: Total score 6 11/06/24 08:41 Depression Screening Interpretation: Positive Depression Screening Follow-up: Existing condition and Declines treatment Thrive Assessment: Date of Thrive Assessment Date Thrive assessed 06/05/24 11/06/24 08:35 Currently or been in a relationship where the following occur: I choose not to answer Const General: healthy appearing, no acute distress, alert and awake Nutritional Appearance: well nourished Orientation/consciousness: oriented to person, oriented to place and oriented to time [facility] Ears: TM's normal bilaterally General nose exam: Normal nasal mucous membranes and turbinates present Eyes Conjunctivae: conjunctivae normal Sclerae: sclerae normal Pupils: Equal, round and reactive pupils present Neck Neck: Yes no lymphadenopathy and Yes no JVD Thyroid: Thyroid normal Carotids: no bruits Resp Effort & Inspection: normal respiratory effort and not tachypneic Auscultation: no crackles, no rales, no rhonchi and no wheezes Cardio Rate: regular rate Rhythm: regular rhythm Heart sounds: no murmurs and normal S1 and S2 GI Palpation (GI): Soft to palpation, nontender, no hepatomegaly and no splenomegaly Auscultation: normal bowel sounds Skin General skin exam: no rashes or lesions noted and dry skin Neuro General: oriented to person, oriented to place and oriented to time Cranial nerves: Yes Equal, round and reactive pupils present Speech: No Abnormal speech present Gait exam (Neuro): Normal gait present Motor exam (neuro): no tremor noted Extrem Right upper extremity: full ROM Left upper extremity: full ROM Right lower extremity: full ROM; no edema Left lower extremity: full ROM; no edema Psych Mental Status: mental status grossly normal Speech and movement: Normal speech and movement present Affect: normal affect Attitude: cooperative Thought process: Normal thought process present Coding Level of Care Code Est Pt Level 4 (11334) Diagnoses Centrilobular emphysema J43.2 COPD type: emphysema Emphysema type: centrilobular Stroke due to stenosis of right carotid artery I63.231 Mixed hyperlipidemia E78.2 Hyperlipidemia type: mixed hyperlipidemia Primary hypertension I10 Hypertension type: primary hypertension Impaired glucose metabolism R73.09 Abdominal aortic aneurysm (AAA) without rupture I71.4 Presence of rupture: without rupture Cerebrovascular accident (CVA) due to stenosis of right middle cerebral artery I63.511 CVA mechanism: stenosis Laterality of affected vessel: right Precerebral and cerebral artery: middle cerebral artery Additional Codes PHQ-9 - 16373 - PHQ-9 Billing: Yes ([id number]) CHARLES-7 Assessment Billing - CHARLES-7 Assessment Tool: CHARLES-7 Assessment 45971 ([id number]) Assessment & Plan Assessment & Plan (1) COPD (chronic obstructive pulmonary disease): Code(s): J44.9 - Chronic obstructive pulmonary disease, unspecified Category: Medical Qualifiers: COPD type: emphysema Emphysema type: centrilobular Qualified Code(s): J43.2 - Centrilobular emphysema Plan: She is a previous heavy smoker, quit 4 years ago. She is followed by pulmonology here in [place]. Continues on continuous O2 via nasal cannula. (2) Stroke due to stenosis of right carotid artery: Comment: March 2020 - right carotid endarterectomy Code(s): I63.231 - Cerebral infarction due to unspecified occlusion or stenosis of right carotid arteries Category: Medical Plan: Will continue with risk modifications to reduce . Most recent lipid panel showing excellent control over total cholesterol and LDL (3) Hyperlipidemia: Code(s): E78.5 - Hyperlipidemia, unspecified Category: Medical Qualifiers: Hyperlipidemia type: mixed hyperlipidemia Qualified Code(s): E78.2 - Mixed hyperlipidemia Plan: Patient's most recent lipid panel showing good control over total cholesterol and LDL. Will continue her current dose of atorvastatin with goal LDL to be optimally below 70 (4) Hypertension: Code(s): I10 - Essential (primary) hypertension Category: Medical Qualifiers: Hypertension type: primary hypertension Qualified Code(s): I10 - Essential (primary) hypertension Plan: Patient's blood pressure acceptable today in office. She will continue her current dose of antihypertensive medication with goal blood pressure to remain below 140/90 (5) Impaired glucose metabolism: Code(s): R73.09 - Other abnormal glucose Category: Medical Plan: Patient's fasting blood sugar slightly elevated at 110. She does report drinking a lot of soda. She will reduce her soda intake. (6) Abdominal aortic aneurysm (AAA): Comment: 12/20/2017 - endovascular aortic aneurysm repair Code(s): I71.4 - Abdominal aortic aneurysm, without rupture Category: Medical Qualifiers: Presence of rupture: without rupture Qualified Code(s): I71.4 - Abdominal aortic aneurysm, without rupture Plan: Patient followed by [place] vascular surgeon in is under surveillance with annual CTs of the abdomen. (7) CVA (cerebral vascular accident): Code(s): I63.9 - Cerebral infarction, unspecified Category: Medical Qualifiers: CVA mechanism: stenosis Laterality of affected vessel: right Precerebral and cerebral artery: middle cerebral artery Qualified Code(s): I63.511 - Cerebral infarction due to unspecified occlusion or stenosis of right middle cerebral artery Plan: Patient has had 2 strokes in the past. Will continue to reduce her risk for recurrent stroke with high potency statin therapy and continued on aspirin indefinitely. Orders: Orders Hemoglobin A1c Today R73.09 - Other abnormal glucose Complete Blood Count no Diff Today J43.2 - Centrilobular emphysema Comprehensive [place]. Panel Fast Today R73.09 - Other abnormal glucose Lipid Panel Today E78.2 - Mixed hyperlipidemia Patient Instructions: Goal: Blood pressure to remain below 140/90, LDL to remain below 100 Barriers: Adherence to physical activity and healthy eating habits.
[2024-11-06 08:30] VITALS: BP 126/80; PULSE 97; O2SAT 92; BMI 22.1
--- OUTSIDE RECORDS SUMMARY | 2024-11-06 08:48 | XMS_ITS ---
Author Organization [facility] Address [address] [place] [address] Care Team Providers Care Auto Slip Cover Installer Name Role Phone Pipe Washburn Primary Care Provider Unavailab Ariana Willis Unavailable [phone] Allergies No Known Allergies REASON FOR VISIT [...] DAYS Oral for 90 Days Active Creon 06578-49819 UNIT Oral for 30 Days Active Calcium [...] 024 Encounters Encounter Location Date Provider Diagnosis [facility] [address] [place] [address] 06/06/2024 Ariana Garcia Atherosclerosis of [place] artery of both lower extremities, with unspecified presence of clinical manifestation I70.203 ; Tinea unguium B35.1 ; Pain in right toe(s) M79.674 and Pain in left toe(s) M79.675 Assessments Encounter Date Diagnosis (ICD Code) Assessment Notes Treatment Notes Treatment Clinical Notes Section Notes 06/06/2024 Atherosclerosis of [place] artery of both lower extremities, with unspecified presence of clinical manifestation (ICD-10 - I70.203) 06/06/2024 Tinea unguium (ICD-10 - B35.1) 06/06/2024 Pain in right toe(s) (ICD-10 - M79.674) 06/06/2024 Pain in left toe(s) (ICD-10 - M79.675) Plan Of Treatment Next Appt Details Follow Up: 2 Months, Reason: Provider Name:Ariana bruno, 11/21/2024 09:30:00 AM, [address] [place], [address], Procedure Notes * Category Sub-Category Detail Notes [...] use of a nail nipper and/or dremel-type beef grinder, to a more viable healthy nail [...] to maintain effectiveness in symptomatic relief - 57992 Keratoma Treatment Parring or Cutting o f Benign Hyperkeratotic Lesion(s) (-57) More than 4 Lesions - The Benign hyperkeratotic lesions, ( 7) in total, locations as stated and described in exam, were pared, and/or cut utilizing a sterile 15 blade, tissue nippers, and/or power [employer] instrumentation - 27972 Progress Notes * Linn RABAGOOB:1945 (78 yo F)Acc No.[id number]:06/06/2024 Progress Note Patient:?Bridget RABAGO Provider:?Ariana Garcia DPM :1945???Age:78 Y???Sex:Female D ate:06/06/2024 Address:[address] [place] [address] Pcp:Pipe Washburn Subjective: * Chief Complaints: * [...] Atorvastatin Calcium 80 MG Tablet Oral Creon 62259-08155 UNIT Capsule Delayed Release Particles Oral Calcium [...] Calcium 80 MG Tablet Oral Taking Creon 24890-28669 UNIT Capsule Delayed Release Particles Oral Taking [...] Assessment: 1.?Tinea unguium - B35.1???2 .?Atherosclerosis of [place] artery of both lower extremities, [...] use of a nail nipper and/or dremel-type beef grinder, to a more viable healthy nail [...] to maintain effectiveness in symptomatic relief - 56428.?Keratoma Treatment:?Parring or Cutting of Benign Hyperkeratotic Lesion(s)?(-57) More than 4 Lesions - The Benign hyperkeratotic lesions, ( 7) in total, locations as stated and described in exam, were pared, and/or cut utilizing a sterile 15 blade, tissue nippers, and/or power dremel instrumentation - 75344.? * Procedure Codes:?09046 DEBRI DE NAIL, 6 OR MORE, Modifiers: XS 20815 TRIM SKIN LESIONS, OVER 4, Modifiers: XS , Q8 * Follow Up:?2 Months * Images: * Sign off status: Completed true * Provider:?Ariana Garcia DPM Date:? Generated for Vern hernández/Claudio/Hina on:?11/06/2024 08:48 AM EDT History and Physical Notes * [...]
--- OUTSIDE RECORDS SUMMARY | 2024-11-06 08:49 | XMS_ITS | Clinical Summary ---
Author Organization [employer] Address [address] [place] [address] Care Team Providers Care Social Human Services Assistants Name Role Phone Unavailable Primary Care Provider Unavailabl e Social History Tobacco Use Types Packs/Day Years Used Date Smoking Tobacco: Never Assessed Comments Unknown Sex and Gender Information Value Date Recorded Sex Assigned at Female 07/23/2022 3:07 PM EST Legal Sex Female 4:26 PM EST Gender Identity Choose not to disclose 3:07 PM EST Sexual Orientation Choose not to disclose 2022 3:07 PM EST Plan of Treatment Health Maintenance Due Date Last Done Comments Depression Screening 1945 SDOH Screening 1945 Alcohol/Substance Use Screening 1957 Tobacco Screening 1957 Hepatitis C Screening 1963 DTaP/Tdap/Td Vaccines (1 - Tdap) 1964 Pneumococcal Vaccine: 50+ Ye ars (1 of 1 - PCV) 1995 Zoster Vaccines (1 of 2) 1995 RSV Patients and Pa tients Aged 60 years or older (1 - 1-dose 75+ series) 2020 COVID-19 Vaccine (2023-2 5 season) 2024 Influenza Vaccine (#1) 2024 HIB Vaccines Aged Out No longer eligi ble based on patient's age to complete this topic HPV Vaccines Aged Out No longer eligi ble based on patient's age to complete this topic Hepatitis A Vaccines Aged Out No long er eligible based on patient's age to complete this topic Hepatitis B Vaccines Aged Out No long er eligible based on patient's age to complete this topic IPV Vaccines Aged Out No longer eligi ble based on patient's age to complete this topic Meningococcal Vaccine Aged Out No chelita evelyn eligible based on patient's age to complete this topic RSV under 20 months Aged Out No longe r eligible based on patient's age to complete this topic Rotavirus Vaccines Aged Out No longer eligible based on patient's age to complete this topic Insurance [facility]
--- OUTSIDE RECORDS SUMMARY | 2024-11-06 08:49 | XMS_ITS ---
Author Organization [facility] Address [address] [place] [address] Care Team Providers Care Intensive Care Anaesthetist Name Role Phone Pipe Washburn Primary Care Provider Unavailab Ariana Willis Unavailable [phone] Allergies No Known Allergies REASON FOR VISIT [...] DAYS Oral for 90 Days Active Creon 84660-83864 UNIT Oral for 30 Days Active Calcium [...] 024 Encounters Encounter Location Date Provider Diagnosis [facility] [place] [address] [place] [address] 03/28/2024 Ariana Garcia Atherosclerosis of [place] artery of both lower extremities, with unspecified presence of clinical manifestation I70.203 ; Tinea unguium B35.1 ; Pain in right toe(s) M79.674 ; Pain in left toe(s) M79.675 and Edema, lower extremity R60.0 Assessments Encounter Date Diagnosis (ICD Code) Assessment Notes Treatment Notes Treatment Clinical Notes Section Notes 03/28/2024 Atherosclerosis of [place] artery of both lower extremities, with unspecified presence of clinical manifestation (ICD-10 - I70.203) 03/28/2024 Tinea unguium (ICD-10 - B35.1) 03/28/2024 Pain in right toe(s) (ICD-10 - M79.674) 03/28/2024 Pain in left toe(s) (ICD-10 - M79.675) 03/28/2024 Edema, lower extremity (ICD-10 - R60.0) Plan Of Treatment Next Appt Details Follow Up: 2 Months, Reason: Provider Name:Ariana bruno, 11/21/2024 09:30:00 AM, [address] [place], [address], Procedure Notes * Category Sub-Category Detail Notes [...] as necessary. Patient chooses, no pharmaceutical tx (35167) Keratoma Treatment Parring or Cutting o f Benign Hyperkeratotic Lesion(s) 97169 ( More than 4 Lesions ) - The Benign hyperkeratotic lesions, as described above were pared, and/or cut utilizing a sterile 15 blade, tissue nippers, and/or dremel, Q8 Progress Notes * Linn RABAGOOB:1945 (78 yo F)Acc No.[id number]:03/28/2024 Progress Note Patient:?Bridget Rabago Provider:?Ariana Garcia DPM :1945???Age:78 Y???Sex:Female D ate:03/28/2024 Address:[address] [place], [place] [id number] Pcp:Ppie Washburn Subjective: * Chief Complaints: * ???At [...] Atorvastatin Calcium 80 MG Tablet Oral Creon 38645-73780 UNIT Capsule Delayed Release Particles Oral Calcium [...] Calcium 80 MG Tablet Oral Taking Creon 76429-90013 UNIT Capsule Delayed Release Particles Oral Taking [...] 3 B/L.? Assessment: * Assessment: 1.?Atherosclerosis of [place] artery of both lower extremities, with unspecified [...] as necessary. Patient chooses, no pharmaceutical tx (68982).?Keratoma Treatment:?Parring or Cutting of Benign Hyperkeratotic Lesion(s)?58593 ( More than 4 Lesions ) - The Benign hyperkeratotic lesions, as described above were pared, and/or cut utilizing a sterile 15 blade, tissue nippers, and/or dremel, Q8.? * Procedure Codes:?71138 DEBRI DE NAIL, 6 OR MORE, Modifiers: XS 32032 TRIM SKIN LESIONS, OVER 4, Modifiers: XS [...]
--- OUTSIDE RECORDS SUMMARY | 2024-11-06 08:49 | XMS_ITS | Patient Health Record ---
[facility] Address [address] [place] [address] Care Team Providers Care Rn Office Name Role Phone Pipe Washburn Primary Care Provider UnavailAriana Gongora Unavailable [phone] Allergies No Known Allergies Reason For Referral No Information Medications Medication SIG (Take, Route, Frequency, Duration) Notes Start Date End Date Status Calcium 600 MG 1 tablet with meals Orally Twice a day for 30 day(s) 09/14/2023 Active Creon 88781-27145 UNIT Oral for 30 Days Active Latanoprost [...] Problem Acquired hammer toe of right foot (4011983637349044) Other hammer toe(s) (acquired), right foot (M20.41) Active confirmed Problem Acquired hammer toe of left foot (6536574776719842) Other hammer toe(s) (acquired), left foot (M20.42) Active confirmed Problem Bilateral atherosclerosis of arteries of lower limbs (disorder) (96658840332250583 ) Atherosclerosis of campo artery of both lower extremities, with unspecified presence of clinical manifestation (I70.203) Active confirmed Vital Signs Blood pressure diastolic 68 mm Hg 08/23/2024 Height 5 ft 4 in in 08/23/2024 Blood pressure systolic 112 mm Hg 08/23/2024 Weight 122 lbs 08/23/2024 BMI 20.94 kg/m2 08/23/2024 Encounters Encounter Location Date Provider Diagnosis [address] [address] 01/11/2024 Ariana Perica Atherosclerosis of campo artery of both lower extremities, with unspecified presence of clinical manifestation I70.203 ; Tinea unguium B35.1 ; Pain in right toe(s) M79.674 and Pain in left toe(s) M79.[address] [address] 03/28/2024 Ariana Perica Atherosclerosis of campo artery of both lower extremities, with unspecified presence of clinical manifestation I70.203 ; Tinea unguium B35.1 ; Pain in right toe(s) M79.674 ; Pain in left toe(s) M79.675 and Edema, lower extremity R60.[address] [address] 06/06/2024 Ariana Perica Atherosclerosis of campo artery of both lower extremities, with unspecified presence of clinical manifestation I70.203 ; Tinea unguium B35.1 ; Pain in right toe(s) M79.674 and Pain in left toe(s) M79.675 [facility] [address] [place] [address] 08/23/2024 Ariana Garcia Atherosclerosis of campo artery of both lower extremities, with unspecified presence of clinical manifestation I70.203 ; Xerosis of skin L85.3 ; Tinea unguium B35.1 ; Pain in right toe(s) M79.674 and Pain in left toe(s) M79.675 Assessments Encounter Date Diagnosis (ICD Code) Assessment Notes Treatment Notes Treatment Clinical Notes Section Notes 01/11/2024 Tinea unguium (ICD-10 - B35.1) 01/11/2024 Atherosclerosis of campo artery of both lower extremities, with unspecified presence of clinical manifestation (ICD-10 - I70.203) 03/28/2024 Atherosclerosis of campo artery of both lower extremities, with unspecified presence of clinical manifestation (ICD-10 - I70.203) 06/06/2024 Tinea unguium (ICD-10 - B35.1) 06/06/2024 Atherosclerosis of campo artery of both lower extremities, with unspecified presence of clinical manifestation (ICD-10 - I70.203) 08/23/2024 Xerosis of skin (ICD-10 - L85.3) 08/23/2024 Atherosclerosis of campo artery of both lower extremities, with unspecified [...] Provider Name:Ariana bruno, 11/21/2024 09:30:00 AM, [address] [place], [address], Insurance Providers Payer Name Payer Address Payer Phone Subscriber Number Group Number Insured Name Patient Relationship to Insured Coverage Start Date Coverage End Date [facility] [employer] Claims [address] [place] [id number] Bridget Rabago Self - patient is the [...]
--- OUTSIDE RECORDS SUMMARY | 2024-11-06 08:49 | XMS_ITS ---
Author Organization [facility] Address [address] [place] [address] Care Team Providers Care News Commentator Name Role Phone Pipe Washburn Primary Care Provider Unavailab Ariana Willis Unavailable [phone] Allergies No Known Allergies REASON FOR VISIT [...] day for 30 day(s) 09/14/2023 Active Creon 17858-11150 UNIT Oral for 30 Days Active Metoclopramide [...] 025 Encounters Encounter Location Date Provider Diagnosis [facility] [address] [place] [address] 08/23/2024 Ariana Garcia Atherosclerosis of manzanita artery of both lower extremities, with unspecified presence of clinical manifestation I70.203 ; Xerosis of skin L85.3 ; Tinea unguium B35.1 ; Pain in right toe(s) M79.674 and Pain in left toe(s) M79.675 Assessments Encounter Date Diagnosis (ICD Code) Assessment Notes Treatment Notes Treatment Clinical Notes Section Notes 08/23/2024 Atherosclerosis of manzanita artery of both lower extremities, with unspecified presence of clinical manifestation (ICD-10 - I70.203) 08/23/2024 Xerosis of skin (ICD-10 - L85.3) 08/23/2024 Tinea unguium (ICD-10 - B35.1) 08/23/2024 Pain in right toe(s) (ICD-10 - M79.674) 08/23/2024 Pain in left toe(s) (ICD-10 - M79.675) Plan Of Treatment Next Appt Details Follow Up: 2 Months, Reason: Provider Name:Ariana bruno, 11/21/2024 09:30:00 AM, [address] [place] [address], [address], Procedure Notes * Category Sub-Category Detail Notes [...] use of a nail nipper and/or dremel-type salvage grinder, to a more viable healthy nail [...] to maintain effectiveness in symptomatic relief - 32496 Keratoma Treatment Parring or Cutting o f [...] instrumentation by the physician of record - 43118 Progress Notes * Dia RABAGOneDOB:1945 (79 yo F)Acc No.[id number]:08/23/2024 Progress Note Patient:Bridget ESCOBEDO Provider:?Ariana Garcia DPM :1945???Age:79 Y???Sex:Female D ate:08/23/2024 Address:[address] [place], [place] [id number] Pcp:Pipe Washburn Subjective: * Chief Complaints: * [...] Atorvastatin Calcium 80 MG Tablet Oral Creon 98486-04200 UNIT Capsule Delayed Release Particles Oral Calcium [...] Calcium 80 MG Tablet Oral Taking Creon 84752-10677 UNIT Capsule Delayed Release Particles Oral Taking [...] ( Primary)???Specify :Acute problem, Uncomplicated (3)???2.?Atherosclerosis of manzanita artery of both lower extremities, with unspecified [...] use of a nail nipper and/or dremel-type salvage grinder, to a more viable healthy nail [...] to maintain effectiveness in symptomatic relief - 75572.?Keratoma Treatment:?Parring or Cutting of Benign Hyperkeratotic Lesion(s)?(-57) [...] instrumentation by the physician of record - 61239.? * Procedure Codes:?46179 DEBRI DE NAIL, 6 OR MORE, Modifiers: XS 06996 TRIM SKIN LESIONS, OVER 4, Modifiers: XS [...] Garcia DPM Date:?06/2025 Generated for Vern hernández/Claudio/Efrenitting on:?11/06/2024 08:48 AM EDT History and Physical [...]
== END 2024-11-06 08:58 | disposition home or self-care (01) ==
LOC: HO.HMCH 08:27
PROVIDERS: PCP Physician Assistant; Visit Provider Physician Assistant
DX: J43.2 Centrilobular emphysema (principal); I63.231 Cerebral infarction due to unspecified occlusion or stenosis of right carotid arteries; I63.511 Cerebral infarction due to unspecified occlusion or stenosis of right middle cerebral artery; E78.2 Mixed hyperlipidemia; I10 Essential (primary) hypertension; R73.09 Other abnormal glucose; I71.40 Abdominal aortic aneurysm, without rupture, unspecified

== ENCOUNTER → 2024-11-06 08:26 | Outpatient (BNVA) | payer OTHER, SELFPAY | PROVIDERS: PCP Physician Assistant; Visit Provider Physician Assistant | DX: J43.2 Centrilobular emphysema (principal); I63.231 Cerebral infarction due to unspecified occlusion or stenosis of right carotid arteries; I10 Essential (primary) hypertension; E78.2 Mixed hyperlipidemia; R73.09 Other abnormal glucose; I71.40 Abdominal aortic aneurysm, without rupture, unspecified; Z86.73 Personal history of transient ischemic attack (TIA), and cerebral infarction without residual deficits | CPT/HCPCS: 96127; 99212 ==

== ENCOUNTER 2024-11-13 10:03 | Outpatient (AMB) | payer OTHER, SELFPAY ==
[2024-11-13 10:09] VITALS: BP 126/68; PULSE 94; O2SAT 93; BMI 22.5
--- NOTE | 2024-11-13 10:09 | MHC.OFFVIS ---
Vital Signs 11/13/24 10:09 Height 5 ft 4 in Weight 131 lb 2.801 oz BMI 22.5 BP 126/68 Blood Pressure Location Lt brachial Position Sitting Pulse 94 Pulse Source Pulse Oximeter Pulse Oximetry (%) 93 Oxygen Delivery Method Nasal Cannula Oxygen Flow Rate 2 Intake Visit Reasons: COPD Allergies No Known Allergies Allergy (Verified 11/13/24 10:14) HPI Comments Details: The patient is a 79 year-old woman with a history of lifelong smoking, COPD was been developing worsening shortness of breath progressive in nature. Right now she becomes very short of breath even with minimal activity moderate to severe. When she cannot breathe she feels very breathless and his and she is starts panting. Initially had been when she was in the room. In the office we did have her go for 6 minutes walk test patient maintain a pulse ox will above 95% throughout the ambulation. However, his noted that she became very short of breath with a Bandar score of 8/10 when heart rate increased to about 101,520. Therefore we had done an EKG demonstrating sinus that with activity. Patient did have poor R-wave progression in some T-wave abnormalities. At this point the patient does not have any chest pain and no resting her shortness of breath have subsided. Therefore, I will have undergo blood work and also referred to Cardiology. In the meantime will optimize her respiratory therapy by starting Trelegy inhaler should be a good inhaler for her for adherence and also for maximum respiratory capacity. 11/22/2020 The patient is here for a sick visit. She started developing worsening dyspnea even at rest. The patient has hard time with any activity due to significant panting shortness of breath. She also has been complaining of chest pressure. She did call the office yesterday and we advised her to go to the ER because of the chest discomfort. However, she did go but was too crowded and she left. Therefore she was seen today in the office. She has been using the Trelegy inhaler. Only partially helpful. Denies any fevers or chills. Denies any contact with anybody with COVID-19. Denies any productive cough or coughing general. The patient did have an EKG done in the office demonstrating some minimal ectopy otherwise no abnormalities. Therefore, she was given 2 treatments with DuoNeb and her symptoms improved dramatically. Her chest pressure subsided. The patient afterwards was ambulated had a 6 minutes walk test which she desaturated down to 88% with activity. Therefore supplemental oxygen with activity will be helpful as well. The patient does need a nebulizer. We did provide her with a nebulizer in the office and she was educated on how to use it. The patient be treated for COPD exacerbation. If however condition worsens or her symptoms worsen over the weekend that she needs to seek medical advice in the ER. 06/12/2022 the patient is here for a pulmonary follow-up visit. Overall the patient has been doing a little better. She is responding well to the oxygen. She does use with activity and sleep. She has been using her rescue inhaler. Her maintenance inhaler now is not being covered. She has been having to use her rescue inhaler more often. She does not tolerate the powdered inhalers. Therefore I will send her the Advair HFA with hopes that she can start using her maintenance therapy and improve her overall respiratory capacity. We did review her imaging. She did have a CT scan of the chest last year demonstrating hiatal hernia in addition to emphysema. Patient also had some atelectasis. Will go ahead and repeat her chest x-ray at this time. 12/18/2022 the patient is here for a pulmonary follow-up visit. Overall she is feeling better. She does use the oxygen with activity with good effect. Also use it with sleep. She has some discrepancies with her inhalers. I did advise her to use the Advair as prescribed and her rescue inhaler. She had a chest x-ray back in September 2022 personally by me demonstrating no acute disease. Clinically the patient is doing well right now. 06/18/2023 the patient is here for a pulmonary follow-up visit. The patient overall has been doing well. She denies any new complaints. She does have some dyspnea on exertion [id number] severity. She does use the oxygen with good effect. She has also been using the Advair inhaler. She still has some chest tightness and wheezing at times. The patient does have and prescription for Trelegy but she does know if . And the daughter is also wondering if for once a day medication be effective for her. We did talk about potentially optimizing her respiratory therapy by adding a long-acting muscarinic antagonist along with the Advair. If she finds that effective we can always switch her in the future to something like Trelegy. 12/22/2023 the patient is here for pulmonary follow-up visit. She is winded and tired. She does not have her oxygen with her because it is too heavy. Her oxygen did decrease significantly when she came in. When she sat down she was saturating 88% on room air. Will place her on a conserving device 2 L pulse Incruse able to maintain 90%. Then we ambulated her briefly and she was able to sustain a pulse ox of 90% on 4 L pulse. Therefore will request a conserving device for her in order for her to have better portability outside of her home. Also will request a portable oxygen concentrator since she has difficulties handling the oxygen tanks. We did teach her how to use it but she tends to forget. I do believe a portable oxygen concentrator be easier for her to use with ease. The patient has been using the Advair with good effect. She also needs albuterol medication which was sent to the pharmacy. Will have her get a chest x-ray. The patient does have a history of glaucoma now so will take her off all anticholinergics. 06/26/2024 the patient is here for a pulmonary follow-up visit. Overall the patient has been doing well. She has been frail though she has not been taking deep breaths. I did provide her with incentive spirometry in the office so we can work on the deep breathing exercises. She had an x-ray back in the summer with atelectasis and some decreased lung expansion. Seems to be tolerating the inhalers well. She can not tolerate anticholinergics because of glaucoma history. She does get a runny nose from the nasal cannula oxygen. She does not like to use any nasal sprays so she will have to just continue to blow her nose. Otherwise patient is without any other complaints. 11/13/2024 the patient is here for pulmonary follow-up visit. Continues to do well. She continues use the oxygen with good effect. She does have a portable oxygen concentrator the makes it a lot easier for. Provides better portability outside of the home. No recent x-rays to review although she does have a CAT scan coming up. She continues use respiratory inhalers with good effect. The patient does not report any visual changes which is reassuring with a history of glaucoma. Were avoiding any anticholinergic therapy. The patient will continue with current therapy will follow-up with imaging studies and she will follow-up sometime in late fall. She has not issues prior to this she will call for an earlier assessment. [facility] Medical History (Updated 11/06/24 @ 08:58 by Pipe Washburn PA-C) DVT (deep venous thrombosis) COPD (chronic obstructive pulmonary disease) Left ulnar fracture COPD (chronic obstructive pulmonary disease) COVID-19 Early satiety Abdominal bloating COPD exacerbation Essential hypertension Precordial chest pain Tachycardia Dyspnea Atherosclerotic cardiovascular disease Psoriasis Hydroureter, right Pernicious anemia Raynauds disease Hernia Emphysema lung Asthma History of pyloric channel ulcer Glaucoma Mild acid reflux Surgical History S/P cardiac catheterization H/O carotid endarterectomy (04/01/20) History of AAA (abdominal aortic aneurysm) repair Hx of shoulder surgery Hx of varicose vein stripping Family History Father No problems noted. Mother No problems noted. Sister No problems noted. Sister No problems noted. Sister No problems noted. Sister No problems noted. Sister Cancer Son No problems noted. Social History Household Members: None Housing: House Do you presently have visiting nurse or other home services: Yes Unable to assess alcohol history related to: Unable to respond Alcohol intake: never Patient Tobacco Use Status: Former Tobacco user Tobacco use type: Cigarette Years Smoked: 65 e-Cigarette/Vaping Use: Never Used Second Hand Smoke Exposure: No Advance Directives Date on File: 06/11/21 service: No Current occupational status: retired Cognitive needs: Yes Hearing needs: No Vision needs: Yes Review of Systems Const Denies chills, Denies fatigue, Denies fever(s), Denies weight gain and Denies weight loss ENT Denies dizziness, Denies lip swelling and Denies tongue swelling Card Denies chest pain, Denies leg edema, Denies lightheadedness, Denies palpitations, Reports dyspnea on exertion, Denies orthopnea and Denies other Resp Reports cough and Reports dyspnea on exertion GI Denies hematochezia and Denies change in stool character Musc Denies abnormal gait, Denies muscle weakness, Denies numbness, Denies radiating pain into limb and Denies tingling Neuro Denies abnormal gait, Denies dizziness, Denies numbness and Denies tingling Psych Denies no additional complaints Endo Denies fatigue and Denies palpitations Edwardo/Lymph Denies easy bleeding and Denies lymphadenopathy Aller/Immun Denies lip swelling and Denies tongue swelling Physical Exam Vital Signs: Last Vital Signs Pulse 94 11/13/24 10:09 BP 126/68 11/13/24 10:09 Pulse Ox 93 11/13/24 10:09 Oxygen Delivery Method Nasal Cannula 11/13/24 10:09 Oxygen Flow Rate 2 11/13/24 10:09 BMI result Body Mass Index 22.5 Const General: alert Neck Neck: Yes normal visual inspection, Yes full ROM and Yes no lymphadenopathy Chest Chest palpation & inspection: normal inspection of the chest Resp Effort & Inspection: normal respiratory effort Auscultation: no wheezes and diminished lung sounds Cardio Rate: regular rate Rhythm: regular rhythm Heart sounds: S1 normal heart sound present and S2 normal heart sound present GI Palpation (GI): Soft to palpation and nontender Auscultation: normal bowel sounds Skin General skin exam: rashes and/or lesions noted Assessment & Plan Assessment & Plan (1) COPD (chronic obstructive pulmonary disease): Code(s): J44.9 - Chronic obstructive pulmonary disease, unspecified Category: Medical Qualifiers: COPD type: emphysema Emphysema type: centrilobular Qualified Code(s): J43.2 - Centrilobular emphysema (2) Dyspnea: Code(s): R06.00 - Dyspnea, unspecified Category: Medical Qualifiers: Dyspnea type: dyspnea on exertion Qualified Code(s): R06.00 - Dyspnea, unspecified (3) Emphysema of lung: Code(s): J43.9 - Emphysema, unspecified Category: Medical Qualifiers: Emphysema type: centrilobular Qualified Code(s): J43.2 - Centrilobular emphysema (4) Chronic respiratory failure: Code(s): J96.10 - Chronic respiratory failure, unspecified whether with hypoxia or hypercapnia Category: Medical Qualifiers: Respiratory failure complication: hypoxia Qualified Code(s): J96.11 - Chronic respiratory failure with hypoxia Plan continue Advair HFA, may need to change based on coverage stopped Incruse due to glaucoma KAYY as needed ISS oxygen supplementation revision: 2 L/pulse via nasal cannula at rest, 4L/pulse with activity. Has POC for better portability outside of the home Follow-up in 6 months Coding Level of Care Code Est Pt Level 4 (40543) Complex EM visit Add On G2211 Diagnoses Centrilobular emphysema J43.2 COPD type: emphysema Emphysema type: centrilobular Dyspnea on exertion R06.00 Dyspnea type: dyspnea on exertion Centrilobular emphysema J43.2 Emphysema type: centrilobular Chronic respiratory failure with hypoxia J96.11 Respiratory failure complication: hypoxia Time Spent (min) 16
--- OUTSIDE RECORDS SUMMARY | 2024-11-13 11:18 | XMS_ITS ---
Author Organization [facility] Address [address] [place] [address] Care Team Providers Care Waxing Machine Operator Name Role Phone Pipe Washburn Primary Care Provider Unavailab Ariana Willis Unavailable [phone] Allergies No Known Allergies REASON FOR VISIT [...] DAYS Oral for 90 Days Active Creon 47377-29279 UNIT Oral for 30 Days Active Calcium [...] 024 Encounters Encounter Location Date Provider Diagnosis [facility] [address] [place] [address] 06/06/2024 Ariana Garcia Atherosclerosis of [place] artery of both lower extremities, with unspecified presence of clinical manifestation I70.203 ; Tinea unguium B35.1 ; Pain in right toe(s) M79.674 and Pain in left toe(s) M79.675 Assessments Encounter Date Diagnosis (ICD Code) Assessment Notes Treatment Notes Treatment Clinical Notes Section Notes 06/06/2024 Atherosclerosis of [place] artery of both lower extremities, with unspecified presence of clinical manifestation (ICD-10 - I70.203) 06/06/2024 Tinea unguium (ICD-10 - B35.1) 06/06/2024 Pain in right toe(s) (ICD-10 - M79.674) 06/06/2024 Pain in left toe(s) (ICD-10 - M79.675) Plan Of Treatment Next Appt Details Follow Up: 2 Months, Reason: Provider Name:Ariana bruno, 11/21/2024 09:30:00 AM, [address] [place], [address], Procedure Notes * Category Sub-Category Detail Notes [...] use of a nail nipper and/or dremel-type bearing grinder, to a more viable healthy nail [...] to maintain effectiveness in symptomatic relief - 11021 Keratoma Treatment Parring or Cutting o f Benign Hyperkeratotic Lesion(s) (-57) More than 4 Lesions - The Benign hyperkeratotic lesions, ( 7) in total, locations as stated and described in exam, were pared, and/or cut utilizing a sterile 15 blade, tissue nippers, and/or power [employer] instrumentation - 64662 Progress Notes * Linn RABAGOOB:1945 (78 yo F)Acc No.[id number]:06/06/2024 Progress Note Patient:?Bridget RABAGO Provider:?Ariana Garcia DPM :1945???Age:78 Y???Sex:Female D ate:06/06/2024 Address:[address] [place] [address] Pcp:Pipe Washburn Subjective: * Chief Complaints: * [...] Atorvastatin Calcium 80 MG Tablet Oral Creon 86342-51669 UNIT Capsule Delayed Release Particles Oral Calcium [...] Calcium 80 MG Tablet Oral Taking Creon 67896-61316 UNIT Capsule Delayed Release Particles Oral Taking [...] Assessment: 1.?Tinea unguium - B35.1???2 .?Atherosclerosis of [place] artery of both lower extremities, with unspecified [...] use of a nail nipper and/or dremel-type bearing grinder, to a more viable healthy nail [...] to maintain effectiveness in symptomatic relief - 71436.?Keratoma Treatment:?Parring or Cutting of Benign Hyperkeratotic Lesion(s)?(-57) More than 4 Lesions - The Benign hyperkeratotic lesions, ( 7) in total, locations as stated and described in exam, were pared, and/or cut utilizing a sterile 15 blade, tissue nippers, and/or power dremel instrumentation - 02017.? * Procedure Codes:?90977 DEBRI DE NAIL, 6 OR MORE, Modifiers: XS 63404 TRIM SKIN LESIONS, OVER 4, Modifiers: XS , Q8 * Follow Up:?2 Months * Images: * Sign off status: Completed true * Provider:?Ariana Garcia DPM Date:? Generated for Vern hernández/Claudio/Hina on:?11/13/2024 11:18 AM EDT History and Physical Notes * [...]
--- OUTSIDE RECORDS SUMMARY | 2024-11-13 11:19 | XMS_ITS ---
Author Organization [facility] Address [address] [place] [address] Care Team Providers Care Work Checker Name Role Phone Pipe Washburn Primary Care Provider Unavailab Ariana Willis Unavailable [phone] Allergies No Known Allergies REASON FOR VISIT [...] day for 30 day(s) 09/14/2023 Active Creon 29096-69615 UNIT Oral for 30 Days Active Metoclopramide [...] 025 Encounters Encounter Location Date Provider Diagnosis [facility] [place] [address] [place] [address] 08/23/2024 Ariana Garcia Atherosclerosis of pala artery of both lower extremities, with unspecified presence of clinical manifestation I70.203 ; Xerosis of skin L85.3 ; Tinea unguium B35.1 ; Pain in right toe(s) M79.674 and Pain in left toe(s) M79.675 Assessments Encounter Date Diagnosis (ICD Code) Assessment Notes Treatment Notes Treatment Clinical Notes Section Notes 08/23/2024 Atherosclerosis of pala artery of both lower extremities, with unspecified presence of clinical manifestation (ICD-10 - I70.203) 08/23/2024 Xerosis of skin (ICD-10 - L85.3) 08/23/2024 Tinea unguium (ICD-10 - B35.1) 08/23/2024 Pain in right toe(s) (ICD-10 - M79.674) 08/23/2024 Pain in left toe(s) (ICD-10 - M79.675) Plan Of Treatment Next Appt Details Follow Up: 2 Months, Reason: Provider Name:Ariana bruno, 11/21/2024 09:30:00 AM, [address] [place] [address], [address], Procedure Notes * Category Sub-Category Detail Notes [...] use of a nail nipper and/or dremel-type floor grinder, to a more viable healthy nail [...] to maintain effectiveness in symptomatic relief - 15529 Keratoma Treatment Parring or Cutting o f [...] instrumentation by the physician of record - 94764 Progress Notes * Dia RABAGOneDOB:1945 (79 yo F)Acc No.[id number]:08/23/2024 Progress Note Patient:Bridget ESCOBEDO Provider:?Ariana Garcia DPM :1945???Age:79 Y???Sex:Female D ate:08/23/2024 Address:[address] [place], [place] [id number] Pcp:Pipe Washburn Subjective: * Chief Complaints: * [...] Atorvastatin Calcium 80 MG Tablet Oral Creon 56980-97298 UNIT Capsule Delayed Release Particles Oral Calcium [...] Calcium 80 MG Tablet Oral Taking Creon 09986-28580 UNIT Capsule Delayed Release Particles Oral Taking [...] ( Primary)???Specify :Acute problem, Uncomplicated (3)???2.?Atherosclerosis of pala artery of both lower extremities, with unspecified [...] use of a nail nipper and/or dremel-type floor grinder, to a more viable healthy nail [...] to maintain effectiveness in symptomatic relief - 21093.?Keratoma Treatment:?Parring or Cutting of Benign Hyperkeratotic Lesion(s)?(-57) [...] instrumentation by the physician of record - 60345.? * Procedure Codes:?01450 DEBRI DE NAIL, 6 OR MORE, Modifiers: XS 41591 TRIM SKIN LESIONS, OVER 4, Modifiers: XS [...] Garcia DPM Date:?06/2025 Generated for Vern hernández/Claudio/Efrenitting on:?11/13/2024 11:18 AM EDT History and Physical [...]
--- OUTSIDE RECORDS SUMMARY | 2024-11-13 11:19 | XMS_ITS | Clinical Summary ---
Author Organization [employer] Address [address] [facility] [address] [place] [address] Care Team Providers Care Net C Developer Name Role Phone Unavailable Primary Care Provider [...] to complete this topic Insurance [facility]
== END 2024-11-13 10:31 | disposition home or self-care (01) ==
LOC: HO.HPS 10:03
PROVIDERS: PCP Physician Assistant; Visit Provider Hospitalist
DX: J43.2 Centrilobular emphysema (principal); J96.11 Chronic respiratory failure with hypoxia
CPT/HCPCS: 99214; G2211

== ENCOUNTER → 2024-11-13 10:03 | Outpatient (BNVA) | payer OTHER, SELFPAY | PROVIDERS: PCP Physician Assistant; Visit Provider Hospitalist | DX: J43.2 Centrilobular emphysema (principal); J96.11 Chronic respiratory failure with hypoxia; R06.00 Dyspnea, unspecified | CPT/HCPCS: 99212 ==

== ENCOUNTER → 2024-11-23 08:51 | Outpatient (REF) | payer OTHER, SELFPAY ==
--- NOTE | 2024-11-23 08:54 | CA_ITS ---
Transthoracic Echocardiogram Patient (Last, First, Middle): Bridget Rabago, Gender: Female Date of : 1945 Age: 79 Procedure Date: 11/23/2024 Procedure Type: Transthoracic Echocardiogram Location: OP Height: 162.56 cm Weight: 60.33 kg BSA: 1.64 m2 Heart Rate: bpm BP: 110 / 58 mmHg Vascular Technologist Sonographer: TO Referring MD: Bucky Lawler MD Lead Tinner: Dakota Jeong MD Symptoms: I35.0 - Nonrheumatic aortic (valve) stenosis Study Quality: Technically Difficult ECG Rhythm: Sinus Conclusions: - 1. Technically difficult study 2. Normal LV ejection fraction of 60 65% with impaired relaxation filling pattern 3. Moderately dilated left atrium 4. Moderate to severe aortic stenosis and trace to mild aortic regurgitation 5. Calcific mild mitral stenosis 6. Normal RV systolic pressure Findings Procedure Information The study quality is limited by the patients inability to tolerate the test. Left Ventricle Normal left ventricular size, thickness, and systolic function. The visually estimated ejection fraction is between 60-65%. Spectral Doppler is indicative of an impaired relaxation filling pattern. Right Ventricle Normal right ventricular cavity size and systolic function. Atria The left atrium is moderately dilated. Interatrial shunt cannot be excluded. The right atrium is likely dilated. Aortic Valve There is moderate calcification of the aortic valve. There is moderate to severe aortic valve stenosis. The mean gradient is 26 mmHg. The aortic valve area is 0.93 cm2. There is trace (trivial) aortic valve regurgitation. Mitral Valve There is mild anterior and moderate posterior mitral leaflet thickening. There is mild anterior and moderate posterior mitral annular calcification. There is no mitral valve regurgitation. There is mild mitral valve stenosis. Pulmonic Valve The pulmonic valve was not well visualized. Tricuspid Valve Likely normal tricuspid valve structure and function. There is trace tricuspid valve regurgitation. The right ventricular systolic pressure is normal. The right ventricular systolic pressure is 25 mmHg. Normal right atrial pressure. There is no evidence of pulmonary hypertension. Great Vessels The pulmonary artery was not well visualized. There is no dilatation of the ascending aorta measuring 2.60 cm. Venous The inferior vena cava is normal in size and collapses greater than 50% with inspiration. Pericardium/Pleural There is no evidence of pericardial effusion. Prior Study Comparison Changes noted compared to prior study dated: 10/12/2023. possibly mi worsening of aortic stenosis although this may be overestimated due to LVOT measurement Measurements 2D Linear Measurements IVSd: 1.10 0.6-0.9/0.6-1.0 cm LVIDd: 3.75 3.9-5.3/4.2-5.9 cm LVIDd Index: 2.29 2.4-3.2/2.2-3.1 cm/m2 LVIDs: 2.44 2.0-3.6 cm LVPWd: 0.70 0.7-1.1 cm LV Mass: 123.33 67-162/88-224 g LV Mass Index: 75.20 43-95/49-115 g/m2 LVOT Diam: 2.00 3.0+(-)1.3 cm 2D Systolic Function EF 4C: 53.70 >55% Mitral Valve MV VTI: 0.36 MV Pk Leonardo: 1.35 MV Mn Leonardo: 0.89 MV Pk Grad: 7.00 MV Mn Grad: 4.00 MV Pk E: 0.85 MV PK A: 1.16 MV Decel Time: 218.00 E/A: 0.70 E'Lateral: 3.37 E'Medial: 2.72 E/E' Med: 31.10 E/E' Lat: 25.10 PHT: 64.00 MVA PHT: 3.44 MVA Continuity: 1.57 Decel Blaine: 3.89 Aortic Valve AoV Pk Leonardo: 3.24 AoV Mn Leonardo: 2.47 AoV VTI: 0.61 AoV Pk Grad: 42.00 Aov Mn Grad: 26.00 PHILOMENA Cont.VTI: 0.93 LVOT LVOT Pk Leonardo: 1.02 LVOT Mn Leonardo: 0.69 LVOT VTI: 0.18 LVOT Pk Grad: 4.00 LVOT Mn Grad: 2.00 LVOT Diam: 2.00 LVOT Area: 3.14 Diastolic Function MV Pk E: 0.85 MV Pk A: 1.16 E/A: 0.70 E'Medial: 2.72 E/E' Med: 31.10 E' Laterial: 3.37 E/E' Lat: 25.10 Right Ventricle TAPSE (mm): 16.10 TVS' Leonardo: 11.20 Tricuspid Valve TR Pk Leonardo: 2.33 TR Pk Grad: 22.00 RA Press: 3.00 RVSP: 25.00 Great Vessels Aorta Sinus of Valsalva: 2.79 2.0-3.5 cm Ao Asc: 2.60 2.1-3.4 cm Updated in Other Vendor System with Status of Final Dakota Jeong MD electronically signed on 11/23/2024 6:59:52 PM with status of Final
--- OUTSIDE RECORDS SUMMARY | 2024-11-23 09:19 | XMS_ITS ---
Author Organization [facility] Address [address] [place] [address] Care Team Providers Care Weatherization Technician Name Role Phone Pipe Washburn Primary Care Provider Unavailab Ariana Willis Unavailable [phone] RandArcelia rose Unavailable [phone] Allergies No Known Allergies REASON FOR VISIT At Risk Footcare, Painful Nail(s) aggravated by shoes and causing difficulty standing/walking. Medications Medication SIG (Take, Route, Frequency, Duration) Notes Start Date End Date Status Eliquis 5 MG TAKE 1 TABLET BY KLEVER TH TWICE A DAY Oral for 30 Days Not-Taking Baby Aspirin Not-Jm ing Advair HFA 115-21 MCG/ACT INHALE 2 PUFFS BY MOUTH EVERY 12 HOURS Inhalation for 90 Days Active Albuterol Sulfate 09/14/2023 A ctive Lisinopril 10 [...] DAYS Oral for 90 Days Active Creon 78397-04064 UNIT Oral for 30 Days Active Calcium 600 MG 1 tablet with meals Orally Twice a day for 30 day(s) 09/14/2023 Active Omeprazole 20 MG TAKE 1 CAPSULE BY MOUTH TWICE A DAY Oral for 90 Days Active Atorvastatin Calcium 80 MG Oral for 90 Days Active Nitroglycerin 0.4 MG as directed Sublingual PRN Active Latanoprost Active oxygen prn Active Metoclopramide HCl 10 MG 1 tablet before meals Orally Twice a day for 30 day(s) PRN Active Social History Tobacco Use: Social History Observation Description Date Details (start date - stop date) Never Smoker NA - NA Tobacco use other than smoking: Question Answer Notes Are you an other tobacco user? No Tobacco Control (Standard) Question Answer Notes Tobacco use: Nonsmoker Vital Signs Height 5 ft 4 in in 11/22/2024 Weight 131 lbs 11/22/2024 BMI 22.48 kg/m2 11/22/2024 Blood pressure systolic 113 mm Hg 11/23/19 25 Blood pressure diastolic 68 mm Hg 025 Encounters Encounter Location Date Provider Diagnosis [facility] [place] [address] [place] [address] 11/22/2024 Arcelia Rand Atherosclerosis of [place] artery of both lower extremities, with unspecified presence of clinical manifestation I70.203 ; Tinea unguium B35.1 ; Pain in right toe(s) M79.674 and Pain in left toe(s) M79.675 Assessments Encounter Date Diagnosis (ICD Code) Assessment Notes Treatment Notes Treatment Clinical Notes Section Notes 11/22/2024 Atherosclerosis of [place] artery of both lower extremities, with unspecified presence of clinical manifestation (ICD-10 - I70.203) 11/22/2024 Tinea unguium (ICD-10 - B35.1) 11/22/2024 Pain in right toe(s) (ICD-10 - M79.674) 11/22/2024 Pain in left toe(s) (ICD-10 - M79.675) Plan Of Treatment Next Appt Details Follow Up: 2 Months, Reason: Provider Name:Arcelia parson, 03/05/2025 10:00:00 AM, [address] [place] [address], [address], Procedure Notes * Category Sub-Category Detail Notes [...] use of a nail nipper and/or dremel-type disk grinder, to a more viable healthy nail [...] to maintain effectiveness in symptomatic relief - 48050 Keratoma Treatment Parring or Cutting o f [...] instrumentation by the physician of record - 64767 Progress Notes * Dia RABAGOReganOB:1945 (79 yo F)Acc No.[id number]:11/22/2024 Progress Note Patient:?Bridget RABAGO Provider:?Arcelia Rand DPM :1945???Age:79 Y???Sex:Female D ate:11/22/2024 Address:[address] [place] [address], [facility] Pcp:Pipe Washburn Subjective: * Chief Complaints: * ???At Risk FootcarePainful N ail(s) aggravated by shoes and causing difficulty standing/walking. * HPI: ???At Risk footcare:?Pt States Last PCP Visit:?Date?11/06/2024 * ROS:?General/Constitutional:?Nausea?denies.?Vomiting?denies.?Hunger Thirst?denies.?Loss appetite?denies.?Chills?denies.?Fatigue?denies.?Fever?denies.?Night Sweats?denies.?Unexplained weight loss?denies.?Unexplained [...] Atorvastatin Calcium 80 MG Tablet Oral Creon 11386-28005 UNIT Capsule Delayed Release Particles Oral Calcium [...] Calcium 80 MG Tablet Oral Taking Creon [address]5445-[address]378 UNIT Capsule Delayed Release Particles Oral Taking [...] Vitals:?Ht: 5 ft 4 in, Wt: 1 31, BMI: 22.48, Shoe size: 9, BP: 113/68 mm Hg, Ht- cm: 162.56 cm, Wt-k.42 kg. * Examination: ???Vascular: ?DP PULSES (B):? [...] no fissure(s) present, B/L.? Assessment: * Assessment: 1.?Tinea unguium - B35.1 (Pr imary)???2.?Atherosclerosis of [place] artery of both lower extremities, with unspecified presence of clinical manifestation - I70.203???3.?Pain in right toe(s) - M79.674???4.?Pain in left [...] use of a nail nipper and/or dremel-type disk grinder, to a more viable healthy nail [...] to maintain effectiveness in symptomatic relief - 75623.?Keratoma Treatment:?Parring or Cutting of Benign Hyperkeratotic Lesion(s)?(-57) [...] instrumentation by the physician of record - 32330.? * Procedure Codes:?98759 DEBRI DE NAIL, 6 OR MORE, Modifiers: XS 83577 TRIM SKIN LESIONS, OVER 4, Modifiers: XS , Q8 * Preventive Medicine:? ??Screening/Special Tests:?Fall Risk?Screening:?No falls in the past year ?FALLS: Screening for Future Fall Risk?Have you had any falls with injury in the past year??No * Follow Up:?2 Months * Images: * Sign off status: Completed true * Provider:?Arcelia Rand DPM Date:?0 11/22/2024 Generated for Vern hernández/Claudio/eTransmitting on:?11/23/2024 09:19 AM EDT History and Physical Notes * [...]
--- OUTSIDE RECORDS SUMMARY | 2024-11-23 09:19 | XMS_ITS ---
Author Organization [facility] Address [address] [place] [address] Care Team Providers Care Industrial Welder Name Role Phone Pipe Washburn Primary Care Provider Unavailab Ariana Willis Unavailable [phone] Allergies No Known Allergies REASON FOR VISIT [...] day for 30 day(s) 09/14/2023 Active Creon 51689-06337 UNIT Oral for 30 Days Active Metoclopramide [...] 025 Encounters Encounter Location Date Provider Diagnosis [facility] [address] [place] [address] 08/23/2024 Ariana Jose Atherosclerosis of [place] artery of both lower extremities, with unspecified presence of clinical manifestation I70.203 ; Xerosis of skin L85.3 ; Tinea unguium B35.1 ; Pain in right toe(s) M79.674 and Pain in left toe(s) M79.675 Assessments Encounter Date Diagnosis (ICD Code) Assessment Notes Treatment Notes Treatment Clinical Notes Section Notes 08/23/2024 Atherosclerosis of [place] artery of both lower extremities, with unspecified presence of clinical manifestation (ICD-10 - I70.203) 08/23/2024 Xerosis of skin (ICD-10 - L85.3) 08/23/2024 Tinea unguium (ICD-10 - B35.1) 08/23/2024 Pain in right toe(s) (ICD-10 - M79.674) 08/23/2024 Pain in left toe(s) (ICD-10 - M79.675) Plan Of Treatment Next Appt Details Follow Up: 2 Months, Reason: Provider Name:Arcelianoemy parson, 03/05/2025 10:00:00 AM, [address] [place], [address], Procedure Notes * Category Sub-Category Detail Notes [...] use of a nail nipper and/or dremel-type cutter grinder operator, to a more viable healthy [...] to maintain effectiveness in symptomatic relief - 83104 Keratoma Treatment Parring or Cutting o f [...] instrumentation by the physician of record - 48801 Progress Notes * Dia RABAGOneDOB:1945 (79 yo F)Acc No.[id number]:08/23/2024 Progress Note Patient:Bridget ESCOBEDO Provider:?Ariana Garcia DPM :1945???Age:79 Y???Sex:Female D ate:08/23/2024 Address:[address] [place], [place] [address] Pcp:Pipe Washburn Subjective: * Chief Complaints: * [...] Atorvastatin Calcium 80 MG Tablet Oral Creon 75273-15941 UNIT Capsule Delayed Release Particles Oral Calcium [...] Calcium 80 MG Tablet Oral Taking Creon 41363-37722 UNIT Capsule Delayed Release Particles Oral Taking [...] ( Primary)???Specify :Acute problem, Uncomplicated (3)???2.?Atherosclerosis of [place] artery of both lower extremities, with unspecified [...] use of a nail nipper and/or dremel-type cutter grinder operator, to a more viable healthy [...] to maintain effectiveness in symptomatic relief - 09058.?Keratoma Treatment:?Parring or Cutting of Benign Hyperkeratotic Lesion(s)?(-57) [...] instrumentation by the physician of record - 84030.? * Procedure Codes:?84410 DEBRI DE NAIL, 6 OR MORE, Modifiers: XS 83807 TRIM SKIN LESIONS, OVER 4, Modifiers: XS [...] Garcia DPM Date:?06/2025 Generated for Vern hernández/Claudio/Efrenitting on:?11/23/2024 09:19 AM EDT History and Physical [...]
--- OUTSIDE RECORDS SUMMARY | 2024-11-23 09:19 | XMS_ITS ---
Author Organization [facility] Address [address] [place] [address] Care Team Providers Care Warehouseman Name Role Phone Pipe Washburn Primary Care Provider Unavailab Ariana Willis Unavailable [phone] Pratt Encounters Encounter Location Date Provider Diagnosis [facility] [address] [place] [address] 11/21/2024 Ariana Garcia Plan Of Treatment Next Appt Details Provider Name:Arcelia Madden eb, 03/05/2025 10:00:00 AM, [address] [place], [address], Progress Notes * Linn RABAGOOB:1945 (79 yo F)Acc No.[id number]:11/21/2024 Progress Note Patient:?Bridget RABAGO Provider:?Ariana Garcia DPM :1945???Age:79 Y???Sex:Female D ate:11/21/2024 Address:[address] [place], [place] [id number] Pcp:Pipe Washburn Subjective: * Chief Complaints: * ???1. Dr Pratt. * Medical History:? Objective: * Vitals:? Assessment: Plan: * Treatment: * Images: * The named appointment provid er may or may not be the originator of this progress note, and it is not deemed complete until electronically signed by the appointment provider. Sign off status: Pending * Provider:?Ariana Garcia DPM Date:? Generated for Vern hernández/Claudio/Hina on:?11/23/2024 09:19 AM EDT
--- OUTSIDE RECORDS SUMMARY | 2024-11-23 09:19 | XMS_ITS | Clinical Summary ---
Author Organization [employer] Address [address] [facility] 7t [place] [address] Care Team Providers Care Goodyear Welter Name Role Phone Unavailable Primary Care Provider [...] patient's age to complete this topic Insurance [facility]
--- OUTSIDE RECORDS SUMMARY | 2024-11-23 09:20 | XMS_ITS | Patient Health Record ---
Author Organization [facility] Address [address] [place] [address] Care Team Providers Care Supervisor Welding Equipment Repairer Name Role Phone Pipe Washburn Primary Care Provider Unavailab Ariana Willis Unavailable [phone] Arcelia Rand Unavailable [phone] Allergies No Known Allergies Reason For Referral No Information Medications Medication SIG (Take, Route, Frequency, Duration) Notes Start Date End Date Status Nitroglycerin 0.4 MG as directed Sublingual PRN Active Baby Aspirin Not-Jm ing Latanoprost Active oxygen prn Active Advair HFA 115-21 MCG/ACT INHALE 2 PUFFS BY MOUTH EVERY 12 HOURS Inhalation for 90 Days Active Metoclopramide HCl 10 MG 1 tablet before meals Orally Twice a day for 30 day(s) PRN Active Albuterol Sulfate 09/14/2023 A ctive Omeprazole [...] DAYS Oral for 90 Days Active Creon [address] UNIT Oral for 30 Days Active Calcium 600 MG 1 tablet with meals Orally Twice a day for 30 day(s) 09/14/2023 Active Eliquis 5 MG TAKE 1 TABLET BY KLEVER TH TWICE A DAY Oral for 30 Days Not-Taking Atorvastatin Calcium 80 MG Oral for 90 [...] Problem Acquired hammer toe of right foot (5698462873175725) Other hammer toe(s) (acquired), right foot (M20.41) Active confirmed Problem Acquired hammer toe of left foot (3724556856672158) Other hammer toe(s) (acquired), left foot (M20.42) Active confirmed Problem Bilateral atherosclerosis of arteries of lower limbs (disorder) (51846104173836506 ) Atherosclerosis of [place] artery of both lower extremities, with unspecified presence of clinical manifestation (I70.203) Active confirmed Vital Signs Blood pressure diastolic 68 mm Hg 11/22/2024 Height 5 ft 4 in in 11/22/2024 Blood pressure systolic 113 mm Hg 11/22/2024 Weight 131 lbs 11/22/2024 BMI 22.48 kg/m2 11/22/2024 Encounters Encounter Location Date Provider Diagnosis [address] [address] 01/11/2024 Ariana Perica Atherosclerosis of [place] artery of both lower extremities, with unspecified presence of clinical manifestation I70.203 ; Tinea unguium B35.1 ; Pain in right toe(s) M79.674 and Pain in left toe(s) M79.[address] [address] 03/28/2024 Ariana Perica Atherosclerosis of [place] artery of both lower extremities, with unspecified presence of clinical manifestation I70.203 ; Tinea unguium B35.1 ; Pain in right toe(s) M79.674 ; Pain in left toe(s) M79.675 and Edema, lower extremity R60.[address] [address] 06/06/2024 Ariana Perica Atherosclerosis of [place] artery of both lower extremities, with unspecified presence of clinical manifestation I70.203 ; Tinea unguium B35.1 ; Pain in right toe(s) M79.674 and Pain in left toe(s) M79.[address] [facility] [address] 08/23/2024 Ariana Garcia Atherosclerosis of [place] artery of both lower extremities, with unspecified presence of clinical manifestation I70.203 ; Xerosis of skin L85.3 ; Tinea unguium B35.1 ; Pain in right toe(s) M79.674 and Pain in left toe(s) M79.[address] [facility] [address] 11/22/2024 Arcelia Rand Atherosclerosis of [place] artery of both lower extremities, with unspecified presence of clinical manifestation I70.203 ; Tinea unguium B35.1 ; Pain in right toe(s) M79.674 and Pain in left toe(s) M79.675 Assessments Encounter Date Diagnosis (ICD Code) Assessment Notes Treatment Notes Treatment Clinical Notes Section Notes 01/11/2024 Tinea unguium (ICD-10 - B35.1) 01/11/2024 Atherosclerosis of [place] artery of both lower extremities, with unspecified presence of clinical manifestation (ICD-10 - I70.203) 03/28/2024 Atherosclerosis of [place] artery of both lower extremities, with unspecified presence of clinical manifestation (ICD-10 - I70.203) 06/06/2024 Tinea unguium (ICD-10 - B35.1) 08/23/2024 Xerosis of skin (ICD-10 - L85.3) 08/23/2024 Atherosclerosis of [place] artery of both lower extremities, with unspecified presence of clinical manifestation (ICD-10 - I70.203) 11/22/2024 Tinea unguium (ICD-10 - B35.1) 06/06/2024 Atherosclerosis of [place] artery of both lower extremities, with unspecified presence of clinical manifestation (ICD-10 - I70.203) 11/22/2024 Atherosclerosis of [place] artery of both lower extremities, with unspecified presence of clinical manifestation (ICD-10 - I70.203) 08/23/2024 Tinea unguium (ICD-10 - B35.1) 11/22/2024 Pain in right toe(s) (ICD-10 - M79.674) 06/06/2024 Pain in right toe(s) (ICD-10 - [...] toe(s) (ICD-10 - M79.675) 08/23/2024 Pain in left toe(s) (ICD-10 - M79.675) 03/28/2024 Pain in left toe(s) (ICD-10 - M79.675) 03/28/2024 Edema, lower extremity (ICD-10 - R60.0) Plan Of Treatment Next Appt Details Provider Name:Arcelia Madden eb, 03/05/2025 10:00:00 AM, [address] [place], [address], Insurance Providers Payer Name Payer Address Payer Phone Subscriber Number Group Number Insured Name Patient Relationship to Insured Coverage Start Date Coverage End Date [facility] [employer] Claims [address] [place] [id number] Bridget Rabago Self - patient is the [...]
== END ==
LOC: HO.CARD 08:51
PROVIDERS: PCP Physician Assistant; Visit Provider Internal Medicine
DX: I35.0 Nonrheumatic aortic (valve) stenosis (principal)
CPT/HCPCS: 93306

== ENCOUNTER → 2024-11-23 08:54 | Outpatient (BNV) | payer OTHER, SELFPAY | PROVIDERS: PCP Physician Assistant; Visit Provider Internal Medicine Cardiovascular Disease | DX: I35.2 Nonrheumatic aortic (valve) stenosis with insufficiency (principal); I34.81 Nonrheumatic mitral (valve) annulus calcification; I34.2 Nonrheumatic mitral (valve) stenosis | CPT/HCPCS: 93306 ==

== ENCOUNTER 2025-01-08 14:19 | Outpatient (REF) | payer OTHER, SELFPAY ==
[2025-01-08 15:56] LABS: Blood Urea Nitrogen 16 mg/dL (9-16); Estimated Glomerular Filt Rate 59
== END 2025-01-08 14:20 | disposition home or self-care (01) ==
LOC: HO.LAB 14:19
PROVIDERS: Absent Provider Surgery Vascular Surgery; PCP Physician Assistant; Visit Provider Internal Medicine
DX: I71.40 Abdominal aortic aneurysm, without rupture, unspecified (principal); I25.10 Atherosclerotic heart disease of native coronary artery without angina pectoris; I35.0 Nonrheumatic aortic (valve) stenosis; I10 Essential (primary) hypertension
CPT/HCPCS: 36415; 82565; 84520; 99212

== ENCOUNTER 2025-01-08 14:19 | Outpatient (AMB) | payer OTHER, SELFPAY ==
--- OUTSIDE RECORDS SUMMARY | 2024-11-21 05:30 | XMS_ITS ---
Author Organization [facility] Address [address] [place] [address] Care Team Providers Care Factory Machine Computer Operator Name Role Phone Pipe Washburn Primary Care Provider Unavailab Ariana Willis Unavailable [phone] Pratt Encounters Encounter Location Date Provider Diagnosis [facility] [address] [place] [address] 11/21/2024 Ariana Garcia Plan Of Treatment Next Appt Details Provider Name:Arcelia parson, 03/05/2025 10:00:00 AM, [address] [place], [address], Progress Notes * Dia RABAGOReganOB:1945 (79 yo F)Acc No.[id number]:11/21/2024 Progress Note Patient: Bridget SERRANO Provider: Crystal Garcia DPM :1945 A ge:79 Y S ex:Female Date:11/21/2024 Address:[address] [place], [place] [id number] Pcp:Pipe Washburn Subjective: * Chief Complaints: * [...] 0 11/21/2024 Generated for Vern hernández/Claudio/Hina on: 0 01/08/2025 02:49 PM EDT
--- NOTE | 2025-01-08 14:27 | A.OFFVIS_ITS ---
Vital Signs 01/08/25 14:30 Height 5 ft 4 in Weight 127 lb 13.89 oz BMI 21.9 BP 120/72 Blood Pressure Location Rt brachial Position Sitting Pulse 98 Pulse Source Pulse Oximeter Intake Visit Reasons: f/up-echo Potato Chip Processing Supervisor Required: No Accompanied by: Daughter Allergies No Known Allergies Allergy (Verified 11/13/24 10:14) Medication List - Last Reconciled 01/08/25 by Bucky Lawler MD acetaminophen 650 mg (2 x 325 mg) PO Q6H PRN albuterol sulfate 2.5 mg inhalation Q6H PRN albuterol sulfate 90 mcg/actuation 2 inhalations inhalation Q4H PRN aspirin (Adult Aspirin Regimen) 81 mg PO DAILY atorvastatin 80 mg PO DAILY calcium carbonate 500 mg PO BID cholecalciferol (vitamin D3) 25 mcg PO DAILY commode (bedside commode) As directed cyanocobalamin (vitamin B-12) 1,000 mcg PO DAILY fluticasone propion-salmeterol 113-14 mcg/actuation (AirDuo RespiClick) 1 inh inhalation Q12H 30 days fluticasone propion-salmeterol 115-21 mcg/actuation (Advair HFA) 2 puffs inhalation Q12H 30 days latanoprost 0.005% 1 drp ophthalmic (eye) BEDTIME lmovys-jeylqhnj-iwicdjc 24,000-76,000 -120,000 unit (Creon) 1 cap PO TIDAC 30 days lisinopril 10 mg PO DAILY metoclopramide HCl 10 mg PO Q6H PRN nebulizers As directed nitroglycerin 0.4 mg sublingual Q5M PRN omeprazole 20 mg PO BID@0630,1630 [transport wheelchair As directed] triamcinolone acetonide 0.1% 1 appl topical DAILY 30 days [wheelchair cushion As directed] HPI Comments Details: Bridget returns for follow-up regarding coronary artery disease. She also has vascular disease. Also has significant emphysema. She has longstanding shortness of breath related to her pulmonary issues but no clear-cut angina. She is also on supplemental oxygen. Overall, she feels just about the same as before. Shortness of breath still present but unchanged. Otherwise, she has had low blood pressure in the past and at that time, lisinopril was decreased. COUNTS INCLUDE 234 BEDS AT [facility] Medical History DVT (deep venous thrombosis) COPD (chronic obstructive pulmonary disease) Left ulnar fracture COPD (chronic obstructive pulmonary disease) COVID-19 Early satiety Abdominal bloating COPD exacerbation Essential hypertension Precordial chest pain Tachycardia Dyspnea Atherosclerotic cardiovascular disease Psoriasis Hydroureter, right Pernicious anemia Raynauds disease Hernia Emphysema lung Asthma History of pyloric channel ulcer Glaucoma Mild acid reflux Surgical History S/P cardiac catheterization H/O carotid endarterectomy (04/01/20) History of AAA (abdominal aortic aneurysm) repair Hx of shoulder surgery Hx of varicose vein stripping Family History Father No problems noted. Mother No problems noted. Sister No problems noted. Sister No problems noted. Sister No problems noted. Sister No problems noted. Sister Cancer Son No problems noted. Social History Household Members: None Housing: House Do you presently have visiting nurse or other home services: Yes Unable to assess alcohol history related to: Unable to respond Alcohol intake: never Patient Tobacco Use Status: Former Tobacco user Tobacco use type: Cigarette Years Smoked: 65 e-Cigarette/Vaping Use: Never Used Second Hand Smoke Exposure: No Advance Directives Date on File: 06/11/21 service: No Current occupational status: retired Cognitive needs: Yes Hearing needs: No Vision needs: Yes Review of Systems Const Denies chills, Denies fatigue, Denies fever(s), Denies frequent falls, Denies weakness, Denies weight gain and Denies weight loss ENT Denies dizziness Card Denies chest pain, Denies leg edema, Denies lightheadedness, Denies palpitations, Denies dyspnea and Denies dyspnea on exertion Resp Denies cough, Denies dyspnea and Denies dyspnea on exertion GI Denies hematochezia Musc Denies abnormal gait, Denies muscle weakness, Denies numbness, Denies radiating pain into limb and Denies tingling Neuro Denies abnormal gait, Denies dizziness, Denies frequent falls, Denies numbness, Denies tingling and Denies weakness Endo Denies fatigue and Denies palpitations Physical Exam Vital Signs: Last Vital Signs Pulse 98 01/08/25 14:30 BP 120/72 01/08/25 14:30 BMI result Body Mass Index 21.9 Const General: comfortable and no acute distress Orientation/consciousness: patient oriented x3 HEENT Other: Unremarkable Head: Yes normal to inspection Neck Neck: Yes normal visual inspection Chest Chest palpation & inspection: normal inspection of the chest Resp Auscultation: rhonchi and diminished lung sounds Cardio Palpation: normal PMI Heart sounds: S1 normal heart sound present, S2 normal heart sound present, no gallops, Murmur heart sound present systolic II/ and at the right sternal border and no rubs GI Palpation (GI): Soft to palpation Back/Spine/Pelvis Other: unremarkable Skin General skin exam: no rashes or lesions noted Neuro General: patient oriented x3 Extrem General: Yes normal to inspection Psych Mental Status: mental status grossly normal Assessment & Plan Assessment & Plan (1) Atherosclerotic cardiovascular disease: Code(s): I25.10 - Atherosclerotic heart disease of [place] coronary artery without angina pectoris Category: Medical Plan: Cardiac catheterization 2021- moderate disease in the LAD and RCA. Non dominant RCA. No interventions. Clinically, no angina. From a vascular standpoint, she has a history of abdominal aortic aneurysm, carotid stenosis, strokes. Meds listed include aspirin and statins. LDL cholesterol levels are in the 50s to 80s. (2) Aortic stenosis: Code(s): I35.0 - Nonrheumatic aortic (valve) stenosis Category: Medical Qualifiers: Cardiac valve disease etiology: nonrheumatic Qualified Code(s): I35.0 - Nonrheumatic aortic (valve) stenosis Plan: In the recent echocardiogram, peak gradient across aortic valve 42 mm Hg, mean 26 mm Hg with a calculated valve area of 0.93 cm2. Dimensionless index 0.29. Overall, suspect moderate versus moderate to early severe aortic stenosis. Preserved LVEF at 60-65%. Her shortness of breath is most likely from a pulmonary issues and possibly some component from above. She has a high-risk patient for TAVR or any interventions mainly because of her pulmonary status and oxygen dependence. When the aortic stenosis truly becomes severe, we will request a formal TAVR valve. (3) Essential hypertension: Code(s): I10 - Essential (primary) hypertension Category: Medical Plan: Stable. Plan Discussion Notes I discussed with the patient the current status of her chronic obstructive pulmonary disease and the importance of maintaining her oxygen therapy to ensure stable breathing. We also reviewed the condition of her aortic valve stenosis, emphasizing the risks associated with surgical intervention due to her lung condition. I advised that we will continue to monitor her condition closely and plan for a follow-up in six months to reassess the need for any surgical procedures. Patient was informed and verbally consented to the use of an ambient scribe for clinic note documentation during this visit. Discussed with jesus who came for appointment. She agrees with plan of care. Orders: Orders CA echo transthoracic complete 6 Months I35.0 - Nonrheumatic aortic (valve) stenosis Patient Instructions: - Continue using oxygen therapy as prescribed to maintain stable breathing. - Attend all scheduled follow-up appointments to monitor your condition. - Report any new symptoms such as increased shortness of breath or chest pain immediately. Coding Level of Care Code Est Pt Level 4 (70388) Complex EM visit Add On G2211 Diagnoses Atherosclerotic cardiovascular disease I25.10 Nonrheumatic aortic valve stenosis I35.0 Cardiac valve disease etiology: nonrheumatic Essential hypertension I10
[2025-01-08 14:30] VITALS: BP 120/72; PULSE 98; BMI 21.9
--- OUTSIDE RECORDS SUMMARY | 2025-01-08 14:50 | XMS_ITS | Clinical Summary ---
Author Organization [employer] Address [address] [facility] 7t [place] [address] Care Team Providers Care Ostomy Nurse Name Role Phone Unavailable Primary Care Provider [...] Vaccine (2023-2 5 season) 2024 Influenza Vaccine (Season Ended) 2025 HIB Vaccines Aged Out No longer eligi [...] patient's age to complete this topic Meningococcal B Vaccine Aged Out No l onger eligible based on patient's age to complete this topic Meningococcal Vaccine Aged Out No chelita evelyn eligible based on patient's age to complete this topic RSV under 20 months Aged Out No longe r eligible based on patient's age to complete this topic Rotavirus Vaccines Aged Out No longer eligible based on patient's age to complete this topic Insurance [facility]
== END 2025-01-08 14:44 | disposition home or self-care (01) ==
LOC: HO.HCS 14:20
PROVIDERS: PCP Physician Assistant; Visit Provider Internal Medicine
DX: I25.10 Atherosclerotic heart disease of native coronary artery without angina pectoris (principal); I35.0 Nonrheumatic aortic (valve) stenosis; I10 Essential (primary) hypertension
CPT/HCPCS: 99214; G2211

== ENCOUNTER 2025-01-09 13:23 | Outpatient (REF) | payer OTHER, SELFPAY ==
--- OUTSIDE RECORDS SUMMARY | 2024-11-21 05:30 | XMS_ITS ---
Author Organization [facility] Address [address] [place] [address] Care Team Providers Care Corporate Travel Counselor Name Role Phone Pipe Washburn Primary Care Provider Unavailab Ariana Willis Unavailable [phone] Pratt Encounters Encounter Location Date Provider Diagnosis [facility] [address] [place] [address] 11/21/2024 Ariana Garcia Plan Of Treatment Next Appt Details Provider Name:Arcelia parson, 03/05/2025 10:00:00 AM, [address] [place], [address], Progress Notes * Dia RABAGOReganOB:1945 (79 yo F)Acc No.[id number]:11/21/2024 Progress Note Patient: Bridget SERRANO Provider: Crystal Garcia DPM :1945 A ge:79 Y S ex:Female Date:11/21/2024 Address:[address] [place], [place] [address] Pcp:Pipe Washburn Subjective: * Chief Complaints: * [...] 11/21/2024 Generated for Vern hernández/Claudio/Hina on: 0 01/09/2025 02:35 PM EDT
--- NOTE | ~2025-01-09 | CT_ITS ---
CLINICAL HISTORY: I71.4 - Abdominal aortic aneurysm, without rupture CT angiogram of the abdomen and pelvis with IV contrast. 3D/MIP imaging was performed. COMPARISON: CT angiogram abdomen and pelvis dated 01/03/24 at 10:09 EDT FINDINGS: Multifocal atherosclerotic calcified and noncalcified plaque present along the distal thoracic and abdominal aorta. Postsurgical changes of endograft extending along the infrarenal abdominal aorta into the bilateral common iliac arteries redemonstrated. No evidence of endoleak. Complete occlusion of the left common iliac limb redemonstrated. There is reconstitution of the left external and internal iliac arteries likely through collateral flow. Right common iliac limb is patent. 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 Calcified plaque present along the right external and internal iliac arteries without significant stenosis. Calcified plaque present along the left external and internal iliac arteries without significant stenosis. Celiac artery and visualized branches are patent. SMA appears patent. Renal artery origins appear patent. Moderate hiatal hernia. Visualized lung bases are clear. No focal hepatic lesion. Normal gallbladder. Normal arterial phase appearance of the spleen. Normal pancreas. Normal adrenal glands. Unchanged scarring of the medial aspect of the right kidney. No hydronephrosis. Normal appendix. Mild colonic stool burden. No bowel obstruction. Marked distal colonic diverticulosis without evidence of diverticulitis. No mesenteric or retroperitoneal lymphadenopathy. Urinary bladder is contracted. No adnexal mass. Left total hip arthroplasty partially visualized. No acute fracture or suspicious bone lesion. IMPRESSION: 1. Stable infrarenal abdominal aortic endograft without evidence of endoleak. 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 2. 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 This document has been electronically signed by: Anthony Jimenez MD on 01/10/2025 20:35:08
[2025-01-09] MEDS: iohexoL 350 MG/ML 100 ML INFUS..BTL 80 ML IV (13:57)
== END 2025-01-09 13:24 | disposition home or self-care (01) ==
LOC: HO.CT 13:23
PROVIDERS: PCP Physician Assistant; Visit Provider Surgery Vascular Surgery
DX: I71.40 Abdominal aortic aneurysm, without rupture, unspecified (principal)
CPT/HCPCS: 74174; Q9967

== ENCOUNTER → 2025-01-09 13:27 | Outpatient (BNV) | payer OTHER, SELFPAY | PROVIDERS: PCP Physician Assistant; Visit Provider Radiology Diagnostic Radiology | DX: I71.40 Abdominal aortic aneurysm, without rupture, unspecified (principal) | CPT/HCPCS: 74174 ==

== ENCOUNTER 2025-01-24 09:32 | Outpatient (REF) | payer OTHER, SELFPAY ==
--- NOTE | ~2025-01-24 | US_ITS ---
EXAMINATION: BILATERAL CAROTID ULTRASOUND WITH DOPPLER HISTORY: I63.231 - Cerebral infarction due to unspecified occlusion or stenosis COMPARISON: Comparison is made with the prior examination dated 01/03/2024. TECHNIQUE: Real time and Color and Spectral doppler ultrasonography of the carotid and vertebral arteries was performed in multiple planes. FINDINGS: There is mild plaque in both carotid bulbs. VERTEBRAL FLOW DIRECTION: Antegrade bilaterally. PEAK SYSTOLIC VELOCITIES (in cm/sec): RIGHT: CCA: Prox: 63 Dist: 101 ICA: Prox: 141 Mid: 88 Dist: 88 ICA/CCA Ratio: 1.40 ECA: 112 Peak ICA end diastolic velocity (EDV): 31 LEFT: CCA: Prox: 118 Dist: 142 ICA: Prox: 100 Mid: 121 Dist: 90 ICA/CCA Ratio: 0.85 ECA: 133 Peak ICA end diastolic velocity (EDV): 38 US/US carotid duplex BI IMPRESSION: Findings consistent with 50-79% stenosis of the bilateral internal carotid arteries. Electronically signed by: Wallace Reina MD 01/24/2025 10:34 AM EDT
--- OUTSIDE RECORDS SUMMARY | 2025-01-24 09:59 | XMS_ITS | Clinical Summary ---
Author Organization [employer] Address [address] [facility] [address] [place] [address] Care Team Providers Care Sharepoint Administrator Name Role Phone Unavailable Primary Care Provider [...] - 1-dose 75+ series) 2020 COVID-19 Vaccine ( - 2023-2 5 season) 2024 Influenza Vaccine (#1) 2025 HIB Vaccines Aged Out No longer [...] patient's age to complete this topic Insurance [facility]
== END 2025-01-24 09:33 | disposition home or self-care (01) ==
LOC: HO.US 09:32
PROVIDERS: PCP Physician Assistant; Visit Provider Surgery Vascular Surgery
DX: I63.231 Cerebral infarction due to unspecified occlusion or stenosis of right carotid arteries (principal)
CPT/HCPCS: 93880

== ENCOUNTER → 2025-01-24 09:34 | Outpatient (BNV) | payer OTHER, SELFPAY | PROVIDERS: PCP Physician Assistant; Visit Provider Radiology Diagnostic Radiology | DX: I65.23 Occlusion and stenosis of bilateral carotid arteries (principal) | CPT/HCPCS: 93880 ==

== ENCOUNTER 2025-02-02 08:42 | Outpatient (REF) | payer OTHER, SELFPAY ==
--- NOTE | ~2025-02-02 | XR_ITS ---
EXAMINATION: XR PELVIS CLINICAL INFORMATION: M25.559 - Pain in unspecified hip COMPARISON: February 08, 2024. TECHNIQUE: AP view of the pelvis. FINDINGS: There is a metallic prosthesis with an acetabular and femoral component no fully included in the [id number]. The bony pelvis is intact. No acute cortical disruption or malalignment, right hip. There is stent in the distal abdominal aorta and proximal iliac arteries no fully included. Vascular calcifications. Osteopenia versus osteoporosis. XR/XR pelvis 1-2V IMPRESSION: No acute fracture. Status post total left hip arthroplasty. Atherosclerosis disease. Stable and/or aortoiliac stent. Electronically signed by: Horacio Marti MD 02/02/2025 09:23 AM EDT
== END 2025-02-02 08:43 | disposition home or self-care (01) ==
LOC: HO.HOSX 08:42
PROVIDERS: PCP Physician Assistant; Visit Provider Physician Assistant
DX: M25.552 Pain in left hip (principal); Z96.642 Presence of left artificial hip joint
CPT/HCPCS: 72170; 99212

== ENCOUNTER 2025-02-02 08:42 | Outpatient (AMB) | payer OTHER, SELFPAY ==
--- OUTSIDE RECORDS SUMMARY | 2024-11-21 05:30 | XMS_ITS ---
Author Organization [facility] Address [address] [place] [address] Care Team Providers Care Finance Controller Name Role Phone Pipe Washburn Primary Care Provider Unavailab Ariana Willis Unavailable [phone] Pratt Encounters Encounter Location Date Provider Diagnosis [facility] [address] [place] [address] 11/21/2024 Ariana Garcia Plan Of Treatment Next Appt Details Provider Name:Arcelia parson, 03/05/2025 10:00:00 AM, [address] [place], [address], Progress Notes * Dia RABAGOReganOB:1945 (79 yo F)Acc No.[id number]:11/21/2024 Progress Note Patient: Dia SERRANOne Provider: Crystal Garcia DPM :1945 A ge:79 Y S ex:Female Date:11/21/2024 Address:[address] [place], [place] [id number] Pcp:Pipe Washburn Subjective: * Chief Complaints: * [...] 11/21/2024 Generated for Vern hernández/Claudio/Hina on: 0 02/02/2025 08:52 AM EDT
--- NOTE | 2025-02-02 08:46 | MHC.OFFVIS ---
Intake Visit Reasons: OV- left hip pain DOI 01/11/25 Intake Note: Bridget is a 79 year old female who presents today for a follow up of her left hip pain, DOI 01/11/25. Patient had Left Hip Shawn 02/10/24. Patient reports she tripped and fell on her oxygen hose. Patient states that she is having a lot of pain in her hip on were she had her surgery. Patient hasnt taken any medicaiotn to help with the pain. Allergies No Known Allergies Allergy (Verified 02/02/25 08:49) HPI HPI OV- left hip pain DOI 01/11/25: Details: Ms. Rabago is a 79-year-old female who presents to the office today for evaluation of left hip pain. Patient is status post left hip shawn arthroplasty performed on 02-10-[address] Armijo after a fall resulting in left femoral neck fracture. Patient states that she was at home when she sustained a mechanical fall after tripping over her oxygen hose. She has pain over the incision site and difficulty with ambulation ever since her fall. [facility] Medical History DVT (deep venous thrombosis) COPD (chronic obstructive pulmonary disease) Left ulnar fracture COPD (chronic obstructive pulmonary disease) COVID-19 Early satiety Abdominal bloating COPD exacerbation Essential hypertension Precordial chest pain Tachycardia Dyspnea Atherosclerotic cardiovascular disease Psoriasis Hydroureter, right Pernicious anemia Raynauds disease Hernia Emphysema lung Asthma History of pyloric channel ulcer Glaucoma Mild acid reflux Surgical History S/P cardiac catheterization H/O carotid endarterectomy (04/01/20) History of AAA (abdominal aortic aneurysm) repair Hx of shoulder surgery Hx of varicose vein stripping Family History Father No problems noted. Mother No problems noted. Sister No problems noted. Sister No problems noted. Sister No problems noted. Sister No problems noted. Sister Cancer Son No problems noted. Social History Household Members: None Housing: House Do you presently have visiting nurse or other home services: Yes Unable to assess alcohol history related to: Unable to respond Alcohol intake: never Patient Tobacco Use Status: Former Tobacco user Tobacco use type: Cigarette Years Smoked: 65 e-Cigarette/Vaping Use: Never Used Second Hand Smoke Exposure: No Advance Directives Date on File: 06/11/21 service: No Current occupational status: retired Cognitive needs: Yes Hearing needs: No Vision needs: Yes Review of Systems Const All systems reviewed & are unremarkable except as noted in HPI and below Physical Exam Const General: cooperative, healthy appearing and no acute distress Resp Effort & Inspection: normal respiratory effort and able to speak in complete sentences Extrem Other: Left hip: Prior surgical scar is noted. The skin is clean dry and intact. Full internal and external rotation with no groin pain. She does report pain over the incision site. Difficulty performing straight leg raise due to pain and weakness. NVI. Assessment & Plan Assessment & Plan (1) Status post hip hemiarthroplasty: Code(s): Z96.649 - Presence of unspecified artificial hip joint Category: Surgical Plan Ms. Rabago is a 79-year-old female who presents to the office today accompanied by her daughter for evaluation of left hip pain. Patient is status post left hip shawn arthroplasty performed on 02-10-[address] Armijo after a fall resulting in left femoral neck fracture. Patient states that she was at home when she sustained a mechanical fall after tripping over her oxygen hose. While in the office today x-rays were obtained and reviewed and there is no evidence of acute fracture dislocation or evidence of hardware loosening. I suspect the patient has developed a hematoma over the area and is quite painful with ambulation and sitting on the affected area. I advised the patient that although she is using a cane right now I would recommend using a walker to assist with ambulation and stability. Educated the patient that should she have continuing pain, increasing pain or any additional concerns that she should reach out to our office immediately. Otherwise she will follow up PRN, sooner if needed. X-rays of the pelvis which were obtained while in the office today and were reviewed by me, Nadira Delacruz PA-C, as well as Dr. Armijo revealed no acute fracture, dislocation or evidence of hardware loosening. Orders: Orders XR pelvis 1-2V Today M25.559 - Pain in unspecified hip Coding Level of Care Code Est Pt Level 3 (05248) Diagnoses Status post hip hemiarthroplasty Z96.649
--- OUTSIDE RECORDS SUMMARY | 2025-02-02 08:52 | XMS_ITS | Clinical Summary ---
Author Organization [employer] Address [address] [facility] [address] [place] [address] Care Team Providers Care Ecology Teacher Name Role Phone Unavailable Primary Care Provider [...] patient's age to complete this topic Insurance [facility]
== END 2025-02-02 09:45 | disposition home or self-care (01) ==
LOC: HO.HOS 08:43
PROVIDERS: PCP Physician Assistant; Visit Provider Physician Assistant
DX: M25.552 Pain in left hip (principal); Z96.642 Presence of left artificial hip joint
CPT/HCPCS: 99213

== ENCOUNTER → 2025-02-02 09:07 | Outpatient (BNV) | payer OTHER, SELFPAY | PROVIDERS: PCP Physician Assistant; Visit Provider Radiology Diagnostic Radiology | DX: I70.90 Unspecified atherosclerosis (principal); M25.559 Pain in unspecified hip | CPT/HCPCS: 72170 ==

== ENCOUNTER 2025-02-16 09:31 | Outpatient (AMB) | payer OTHER, SELFPAY ==
--- OUTSIDE RECORDS SUMMARY | 2025-02-09 05:15 | XMS_ITS ---
Author Organization [facility] Address [address] [place] [address] Care Team Providers Care Folder Taper Operator Name Role Phone Pipe Washburn Primary Care Provider Unavailab Ariana Willis Unavailable [phone] REASON FOR VISIT Seen Sooner Encounters Encounter Location Date Provider Diagnosis [facility] [address] [place] [address] 02/09/2025 Ariana Garcia Plan Of Treatment Next Appt Details Provider Name:Arcelia parson, 03/05/2025 10:00:00 AM, [address] [place], [address], Progress Notes * Dia RABAGOReganOB:1945 (79 yo F)Acc No.[id number]:02/09/2025 Progress Note Patient: Dia SERRANOne Provider: Crystal Garcia DPM :1945 A ge:79 Y S ex:Female Date:02/09/2025 Address:[address] [place], [place] [phone] Pcp:Pipe Washburn Subjective: * Chief Complaints: * [...] 0 02/09/2025 Generated for Vern hernández/Claudio/Hina on: 0 02/16/2025 09:35 AM EDT
--- OUTSIDE RECORDS SUMMARY | 2025-02-16 09:35 | XMS_ITS | Clinical Summary ---
Author Organization [employer] Address [address] [facility] 7t [place] [address] Care Team Providers Care Heel Coverer Machine Operator Name Role Phone Unavailable Primary Care Provider [...] patient's age to complete this topic Insurance [facility]
[2025-02-16 09:36] VITALS: BP 112/59; PULSE 101; BMI 21.6
--- NOTE | 2025-02-16 09:36 | MHC.OFFVIS ---
Vital Signs 02/16/25 09:36 Height 5 ft 4 in Weight 126 lb BMI 21.6 BP 112/59 L Blood Pressure Location Rt brachial Position Sitting Pulse 101 H Intake Visit Reasons: 1 Year Follow Up, IBS, GERD Intake Note: Bridget returns to in office follow up of IBS and GERD. CC: Patient c/o sharp pains in her belly and vomiting. Computer Support Technician Required: No Accompanied by: niece Allergies No Known Allergies Allergy (Verified 02/16/25 09:50) HPI HPI 1 Year Follow Up, IBS, GERD: Details: Assessment & Plan (1) Chronic idiopathic constipation: Code(s): K59.04 - Chronic idiopathic constipation Category: Medical (2) GERD (gastroesophageal reflux disease): Code(s): K21.9 - Gastro-esophageal reflux disease without esophagitis Category: Medical (3) Left hip pain: Code(s): M25.552 - Pain in left hip Category: Medical (4) Left knee pain: Code(s): M25.562 - Pain in left knee Category: Medical Plan She is here today with her aid who is supportive. She continues to do well on her Creon and omeprazole. However, her breathing continues to be poor and she is mostly panting and not getting the benefit of her oxygen via n/c. They tell me she fell and would not go to the ER r/t the last time we were there 13 hours. She has left hip and knee pain and some redness and swelling on the medial knee and patella. I order xrays. I will call if there are any severe abnomalites on the XR. ROV 1 years r/t pt preference. Orders: Orders XR knee LT 2V Today M25.552 - Pain in left hip, M25.562 - Pain in left knee XR hip LT w PEL1V Today M25.552 - Pain in left hip, M25.562 - Pain in left knee Medications: Refilled omeprazole 20 mg PO BID 180 caps 2RF K21.9 - Gastro-esophageal reflux disease without esophagitis [id number] 24,000-76,000 -120,000 unit (Creon) administer with meals and/or snacks 1 cap PO TID 270 caps 1RF sennosides (Senokot Extra Strength) 17.2 mg PO BID PRN 30 tabs 0RF constipation REVIEW IN HOSPITAL CONSULT HAS SON Assessment and Plan (1) Dysphagia: Status: Acute Plan 1/ PResumed oral pharyngeal dysphagia from combination of prior CVA< denture non compliance, may have an esophgeal stricture as well, but per her report sx are intermittent and sometimes she is able to swallow normal. PLAN: 1/ Recommend ba swallow with pill to get an idea on anatomy and appearance of upper GI 2/ high dose ppi for 3 months 3/ if ba swallow pos then EGD 4/ compliance with dentures 5/ if going to Snf can f/u in GI office for further help 02/2024 SPEECH THERAPY CONSULT Solid Food Consistency: Dietary Recommendations: Grnd/Mech Altered (NDD2) Additional Modifications to Solids: Dry swallow between bites Oral Medication Intake: Crushed with Puree Strategies and Precautions to be Taken for Safe Swallow: Sitting Upright (90 deg)Double Swallow Small Bites and Sips Alternate Liquids/Solids Rate of Ingestion Change Avoid Specific Foods Supervision While Eating and/Drinking: Total Supervision (1:1) Foods to Avoid: Hard, dry or crunchy foods; mixed textures TODAY'S VISIT She is having worsening vomiting after eating. Family says that she eats too fast. Has random sharp pains in the lower abd. She continues on Creon and omeprazole. Will, again, try reglan. Lung expansion may be impacting her ability to eat and the vomiting. She is moving her bowels well. Her resp status in terms of her advanced pulmonary disease would exclude most procedures. She continues on her Creon, omeprazole, and senna. ROV 3 weeks. REPLACED BY [facility] Medical History DVT (deep venous thrombosis) COPD (chronic obstructive pulmonary disease) Left ulnar fracture COPD (chronic obstructive pulmonary disease) COVID-19 Early satiety Abdominal bloating COPD exacerbation Essential hypertension Precordial chest pain Tachycardia Dyspnea Atherosclerotic cardiovascular disease Psoriasis Hydroureter, right Pernicious anemia Raynauds disease Hernia Emphysema lung Asthma History of pyloric channel ulcer Glaucoma Mild acid reflux Surgical History S/P cardiac catheterization H/O carotid endarterectomy (04/01/20) History of AAA (abdominal aortic aneurysm) repair Hx of shoulder surgery Hx of varicose vein stripping Family History Father No problems noted. Mother No problems noted. Sister No problems noted. Sister No problems noted. Sister No problems noted. Sister No problems noted. Sister Cancer Son No problems noted. Social History Household Members: None Housing: House Do you presently have visiting nurse or other home services: Yes Unable to assess alcohol history related to: Unable to respond Alcohol intake: never Patient Tobacco Use Status: Former Tobacco user Tobacco use type: Cigarette Years Smoked: 65 e-Cigarette/Vaping Use: Never Used Second Hand Smoke Exposure: No Advance Directives Date on File: 06/11/21 service: No Current occupational status: retired Cognitive needs: Yes Hearing needs: No Vision needs: Yes Review of Systems Const Denies fatigue, Denies fever(s), Denies night sweats, Denies poor appetite and Denies weight loss ENT Reports Normal hearing present, Denies dysphagia, Denies odynophagia, Denies throat swelling and Denies tongue swelling Card Reports no additional complaints and Reports dyspnea on exertion Resp Reports dyspnea on exertion GI Details: Denies abdominal pain, Denies melena, Denies bloating, Denies hematochezia, Reports constipation, Denies GI cramping, Denies dysphagia, Denies excessive flatus, Denies early satiety, Reports heartburn, Denies diarrhea, Reports nausea, Denies odynophagia, Reports vomiting and Denies hematemesis Skin/Breast Denies pruritus, Denies lesions, Denies rash and Denies jaundice Neuro Reports Normal hearing present and Denies Abnormal speech present Endo Denies fatigue Aller/Immun Denies throat swelling and Denies tongue swelling Physical Exam Vital Signs: Last Vital Signs Pulse 101 H 02/16/25 09:36 BP 112/59 L 02/16/25 09:36 BMI result Body Mass Index 21.6 Const General: cooperative, no acute distress, well developed and well groomed Nutritional Appearance: average body habitus and well nourished Orientation/consciousness: oriented to person, oriented to place and oriented to time Limitations: No language barrier, ambulation with cane and other limitations (portable oxygen) HEENT Head: Yes normocephalic and Yes atraumatic Eyes General: appearance normal, both eyes and all related structures Pupils: Equal, round and reactive pupils present Neck Neck: Yes normal visual inspection and Yes no lymphadenopathy Thyroid: Thyroid normal Resp Effort & Inspection: normal respiratory effort and able to speak in complete sentences Cardio Rate: regular rate Rhythm: regular rhythm Heart sounds: Normal, physiologic split S2 sound present Peripheral pulses: radial pulses present and posterior tibial pulses present GI Inspection: No distended, No Abdominal panniculus present and Yes obesity Palpation (GI): Soft to palpation, nontender, no guarding, not rigid and No hepatosplenomegaly present Percussion: Yes normal to percussion Auscultation: normal bowel sounds Rectal Exam - Female: deferred Skin General skin exam: no rashes or lesions noted, turgor normal, skin not dry, no jaundice, No spider nevi and no striae Rashes: no rashes Nails: normal Neuro General: oriented to person, oriented to place and oriented to time Cranial nerves: Yes Equal, round and reactive pupils present and Yes Normal hearing present Speech: No Abnormal speech present Extrem General: Yes normal to inspection, No clubbing, No cyanosis and No edema Psych Appearance: grossly normal and well kempt Mental Status: mental status grossly normal Speech and movement: Normal speech and movement present Affect: normal affect Attitude: cooperative Thought process: Normal thought process present and not confabulating Thought content: Normal thought content present Insight: Fair insight present (Psych) Judgement: Fair judgement present (Psych) Assessment & Plan Assessment & Plan (1) Nausea and vomiting: Code(s): R11.2 - Nausea with vomiting, unspecified Category: Medical (2) GERD (gastroesophageal reflux disease): Code(s): K21.9 - Gastro-esophageal reflux disease without esophagitis Category: Medical (3) Chronic idiopathic constipation: Code(s): K59.04 - Chronic idiopathic constipation Category: Medical Plan She is having worsening vomiting after eating. Family says that she eats too fast. Has random sharp pains in the lower abd. She continues on Creon and omeprazole. Will, again, try reglan. Lung expansion may be impacting her ability to eat and the vomiting. She is moving her bowels well. Her resp status in terms of her advanced pulmonary disease would exclude most procedures. She continues on her Creon, omeprazole, and senna. ROV 3 weeks. Medications: New metoclopramide HCl (Reglan) 10 mg PO QIDACHS 120 tabs 6RF R11.2 - Nausea with vomiting, unspecified Coding Level of Care Code Est Pt Level 3 (14530) Diagnoses Nausea and vomiting R11.2 GERD (gastroesophageal reflux disease) K21.9 Chronic idiopathic constipation K59.04
== END 2025-02-16 10:28 | disposition home or self-care (01) ==
LOC: HO.HGI 09:32
PROVIDERS: PCP Physician Assistant; Visit Provider Nurse Practitioner
DX: R11.2 Nausea with vomiting, unspecified (principal); K21.9 Gastro-esophageal reflux disease without esophagitis; K59.04 Chronic idiopathic constipation
CPT/HCPCS: 99213

== ENCOUNTER → 2025-02-16 09:31 | Outpatient (BNVA) | payer OTHER, SELFPAY | PROVIDERS: PCP Physician Assistant; Visit Provider Nurse Practitioner | DX: K21.9 Gastro-esophageal reflux disease without esophagitis (principal); K59.04 Chronic idiopathic constipation; R11.2 Nausea with vomiting, unspecified; R10.9 Unspecified abdominal pain | CPT/HCPCS: 99212 ==

== ENCOUNTER 2025-03-20 10:42 | Outpatient (AMB) | payer OTHER, SELFPAY ==
--- OUTSIDE RECORDS SUMMARY | 2024-11-21 05:30 | XMS_ITS ---
Author Organization [facility] Address [address] [place] [address] Care Team Providers Care Valve Tester Name Role Phone Pipe Washburn Primary Care Provider Unavailab Ariana Willis Unavailable [phone] Pratt Encounters Encounter Location Date Provider Diagnosis [facility] [address] [place] [address] 11/21/2024 Ariana Garcia Plan Of Treatment Next Appt Details Provider Name:Arcelia parson, 07/02/2025 09:00:00 AM, [address] [place], [address], Progress Notes * Dia RABAGOReganOB:1945 (79 yo F)Acc No.[id number]:11/21/2024 Progress Note Patient: Bridget SERRANO Provider: Crystal Garcia DPM :1945 A ge:79 Y S ex:Female Date:11/21/2024 Address:[address] [place], [place] [address] Pcp:Pipe Washburn Subjective: * Chief Complaints: * [...] 11/21/2024 Generated for Vern hernández/Claudio/Hina on: 0 03/20/2025 12:40 PM EDT
--- OUTSIDE RECORDS SUMMARY | 2025-01-26 08:00 | XMS_ITS ---
Author Organization [facility] Address [address] [place] [address] Care Team Providers Care Clinical Documentation Nurse Name Role Phone Pipe Washburn Primary Care Provider Unavailab Ariana Willis Unavailable [phone] Encounters Encounter Location Date Provider Diagnosis [facility] [address] [place] [address] 01/26/2025 Ariana Garcia Plan Of Treatment Next Appt Details Provider Name:Arcelia parson, 07/02/2025 09:00:00 AM, [address] [place], [address], Progress Notes * Dia RABAGOReganOB:1945 (79 yo F)Acc No.[id number]:01/26/2025 Progress Note Patient: Bridget SERRANO Provider: Crystal Garcia DPM :1945 A ge:79 Y S ex:Female Date:01/26/2025 Address:[address] [place] [address] Pcp:Pipe Washburn Subjective: * Chief Complaints: * [...] 0 01/26/2025 Generated for Vern hernández/Claudio/Efrenitting on: 0 03/20/2025 12:41 PM EDT
--- OUTSIDE RECORDS SUMMARY | 2025-02-09 05:15 | XMS_ITS ---
Author Organization [facility] Address [address] [place] [address] Care Team Providers Care Production Support Consultant Name Role Phone Pipe Washburn Primary Care Provider Unavailab Ariana Willis Unavailable [phone] REASON FOR VISIT Seen Sooner Encounters Encounter Location Date Provider Diagnosis [facility] [address] [place] [address] 02/09/2025 Ariana Garcia Plan Of Treatment Next Appt Details Provider Name:Arcelia parson, 07/02/2025 09:00:00 AM, [address] [place], [address], Progress Notes * Dia RABAGOReganOB:1945 (79 yo F)Acc No.[id number]:02/09/2025 Progress Note Patient: Dia SERRANOne Provider: Crystal Garcia DPM :1945 A ge:79 Y S ex:Female Date:02/09/2025 Address:[address] [place], [place] [id number] Pcp:Pipe Washburn Subjective: * Chief Complaints: * [...] 02/09/2025 Generated for Vern hernández/Claudio/Hina on: 0 03/20/2025 12:41 PM EDT
--- NOTE | 2025-03-20 10:49 | MHC.OFFVIS ---
Vital Signs 03/20/25 10:50 Height 5 ft 4 in Weight 126 lb BMI 21.6 Intake Visit Reasons: 1y follow up s/p Carotid 01/24/25 Intake Note: 1 yr follow up carotid US01/24/25 & CTA Abd/pelvis 01/09/25 w/ AAA repair 12/20/2017 & Right CEA 03/2020. Pt states she gets sharp pain on the right groin where she had incision. Blocker And Polisher Required: No Accompanied by: TUBE DEPATCHER Allergies No Known Allergies Allergy (Verified 03/20/25 10:53) HPI HPI 1y follow up s/p Carotid 01/24/25: Details: The patient is a 79-year-old female presenting for a routine follow-up regarding her carotid artery disease and abdominal aortic aneurysm. She underwent a right carotid endarterectomy in March 2020 and an endovascular aneurysm repair in December 2017. Currently, she reports sharp pains in the area of the previous surgery, which are suspected to be due to arthritis rather than the surgical site itself. Her recent CT angiogram of the abdomen and ultrasound follow-up of the carotids showed that everything is in place and appears normal. Results are below The patient reports dyspnea, which has worsened over the last year, and she is on continuous oxygen therapy. She has a significant history of tobacco use, having smoked three to four packs a day for 64 years, quitting five years ago. She now presents for routine surveillance follow-up [facility] Medical History DVT (deep venous thrombosis) COPD (chronic obstructive pulmonary disease) Left ulnar fracture COPD (chronic obstructive pulmonary disease) COVID-19 Early satiety Abdominal bloating COPD exacerbation Essential hypertension Precordial chest pain Tachycardia Dyspnea Atherosclerotic cardiovascular disease Psoriasis Hydroureter, right Pernicious anemia Raynauds disease Hernia Emphysema lung Asthma History of pyloric channel ulcer Glaucoma Mild acid reflux Surgical History S/P cardiac catheterization H/O carotid endarterectomy (04/01/20) History of AAA (abdominal aortic aneurysm) repair Hx of shoulder surgery Hx of varicose vein stripping Family History Father No problems noted. Mother No problems noted. Sister No problems noted. Sister No problems noted. Sister No problems noted. Sister No problems noted. Sister Cancer Son No problems noted. Social History Household Members: None Housing: House Do you presently have visiting nurse or other home services: Yes Unable to assess alcohol history related to: Unable to respond Alcohol intake: never Patient Tobacco Use Status: Former Tobacco user Tobacco use type: Cigarette Years Smoked: 65 e-Cigarette/Vaping Use: Never Used Second Hand Smoke Exposure: No Advance Directives Date on File: 06/11/21 service: No Current occupational status: retired Cognitive needs: Yes Hearing needs: No Vision needs: Yes Review of Systems Const All systems reviewed & are unremarkable except as noted in HPI and below Reports no additional complaints ENT Reports Normal hearing present Card Denies chest pain, Denies chest pain at rest, Denies chest pain with activity and Denies pedal edema Resp Denies cough GI Denies abdominal pain Musc Denies abnormal gait, Denies muscle cramps and Denies radiating pain into limb Skin/Breast Denies skin ulcer and Denies wounds Neuro Reports Normal hearing present and Denies abnormal gait Psych Reports no additional complaints Physical Exam Vital Signs: BMI result Body Mass Index 21.6 Const General: cooperative, healthy appearing and comfortable Orientation/consciousness: oriented to person, oriented to place and oriented to time HEENT Head: Yes normal to inspection Neck Neck: Yes normal visual inspection Carotids: no bruits Chest Chest palpation & inspection: normal inspection of the chest Resp Effort & Inspection: normal respiratory effort and able to speak in complete sentences Auscultation: clear to auscultation bilaterally, no crackles, no rales, no rhonchi and no wheezes Cardio Rate: regular rate Rhythm: regular rhythm Heart sounds: S1 normal heart sound present and S2 normal heart sound present Bruits: no carotid bruits Peripheral pulses: Peripheral pulses 2+ throughout GI Inspection: Yes normal to inspection Skin Wounds: no wounds Hair: normal Neuro General: oriented to person, oriented to place and oriented to time Cranial nerves: Yes CN's II-XII intact bilaterally and Yes Normal hearing present Cognition (Neuro): normal cognition Motor exam (neuro): 5/5 motor strength present throughout Extrem Other: venous exam: No significant superficial varicosities or spider telangiectasias, minimal edema General: No clubbing, No cyanosis and No edema Psych Appearance: grossly normal Mental Status: mental status grossly normal Speech and movement: Normal speech and movement present Results Reviewed Results Reviewed: Carotid testing dated 01/24/2025 demonstrates bilateral carotids 50-79%. Written report and images were reviewed. CT angiogram dated 01/09/2025 appears to be within normal limits. Assessment & Plan Assessment & Plan (1) Abdominal aortic aneurysm (AAA): Comment: 12/20/2017 - endovascular aortic aneurysm repair Code(s): I71.4 - Abdominal aortic aneurysm, without rupture Category: Medical Qualifiers: Presence of rupture: without rupture Qualified Code(s): I71.4 - Abdominal aortic aneurysm, without rupture Plan: In short patient has radiologic evidence of a AAA on CT with stable endograft. We have discussed the pathophysiology of aortic aneurysms and the risk of ruptures. We have discussed rupture risk based on size. In addition we have discussed conservative measures and risk factor modification for prevention of increase in size of the aneurysm. the patient is scheduled for surveillance follow-up in approximately 1 year. Thank you for allowing us to participate in the care of this patient (2) Stroke due to stenosis of right carotid artery: Comment: March 2020 - right carotid endarterectomy Code(s): I63.231 - Cerebral infarction due to unspecified occlusion or stenosis of right carotid arteries Category: Medical Plan: In short patient has asymptomatic carotid disease. We have reviewed signs and symptoms of a stroke. We also discussed risk factor modification inclusive a healthy diet low in cholesterol. The patient will follow up with us with surveillance ultrasound of the carotids 1 year. Should there be any changes or signs or symptoms of a stroke we will be happy to see them back sooner. Thank you for allowing us to participate in this patient's care. If there are any questions or concerns please do not hesitate to contact us. Orders: Orders Blood Urea Nitrogen 1 Year I71.4 - Abdominal aortic aneurysm, without rupture Creatinine 1 Year I71.4 - Abdominal aortic aneurysm, without rupture CT angio abdomen pelvis 1 Year I71.4 - Abdominal aortic aneurysm, without rupture US carotid duplex BI 1 Year I63.231 - Cerebral infarction due to unspecified occlusion or stenosis of right carotid arteries Coding Level of Care Code Est Pt Level 4 (30531) Complex EM visit Add On G2211 Diagnoses Abdominal aortic aneurysm (AAA) without rupture I71.4 Presence of rupture: without rupture Stroke due to stenosis of right carotid artery I63.231
[2025-03-20 10:50] VITALS: BMI 21.6
--- OUTSIDE RECORDS SUMMARY | 2025-03-20 12:41 | XMS_ITS | Clinical Summary ---
Author Organization [employer] Address [address] [place] [address] Care Team Providers Care It Telecom Technician Name Role Phone Unavailable Primary Care Provider [...] COVID-19 Vaccine ( - 2023-2 5 season) 2025 Influenza Vaccine (#1) 2025 HIB Vaccines Aged [...] patient's age to complete this topic Insurance [facility]
--- OUTSIDE RECORDS SUMMARY | 2025-03-20 12:41 | XMS_ITS | Patient Health Record ---
[facility] Address [address] [place] [address] Care Team Providers Care Screen Cutter And Trimmer Name Role Phone Pipe Washburn Primary Care Provider Unavailab Ariana Willis Unavailable [phone] Arcelia Rand Unavailable [phone] Allergies No Known Allergies Reason For Referral No Information Medications Medication SIG (Take, Route, Frequency, Duration) Notes Start Date End Date Status Latanoprost Active Eliquis 5 MG TAKE 1 TABLET BY KLEVER TH TWICE A DAY Oral; Duration: 30 Days Not-Taking Atorvastatin Calcium 80 MG Oral; Duratio n: 90 Days Active Metoclopramide HCl 10 MG 1 tablet before meals Orally Twice a day; Duration: 30 day(s) PRN Active Albuterol Sulfate 09/14/2023 A ctive Nitroglycerin 0.4 MG as directed Sublingual PRN Active Baby Aspirin Not-Jm ing Lisinopril 10 MG TAKE 1 TABLET BY KLEVER TH EVERY DAY FOR 30 DAYS Oral; Duration: 90 Days Active oxygen prn Active Advair HFA 115-21 MCG/ACT INHALE 2 PUFFS BY MOUTH EVERY 12 HOURS Inhalation; Duration: 90 Days Active Vitamin D3 25 MCG (1000 UT) TAKE 1 TABLET BY MOUTH EVERY DAY FOR 30 DAYS Oral; Duration: 90 Days Active Omeprazole 20 MG TAKE 1 CAPSULE BY MOUTH TWICE A DAY Oral; Duration: 90 Days Active Calcium 600 MG 1 tablet with meals Orally Twice a day; Duration: 30 day(s) 09/14/2023 Active Vitamin B-12 1000 MCG TAKE 1 TABLET BY M OUTH EVERY DAY FOR 90 DAYS Oral; Duration: 90 Days Active Creon 05189-[address]491 UNIT Oral; Duration: 3 0 Days Active Social History Tobacco Use: Social [...] (Standard) Question Answer Notes Tobacco use: Nonsmoker AUDIT-C (Standard) Question Answer Notes Did you have a drink containing alcohol in the p ast year? No Points 0 Interpretation Negative Problems Problem Type SNOMED Code ICD Code Onset Dates Problem Status W/U Status Risk Notes Problem Acquired hammer toe of right foot (4102949561915010) Other hammer toe(s) (acquired), right foot (M20.41) Active confirmed Problem Acquired hammer toe of left foot (3272372335333486) Other hammer toe(s) (acquired), left foot (M20.42) Active confirmed Problem Bilateral atherosclerosis of arteries of lower limbs (disorder) (23151750945125618 ) Atherosclerosis of zuni artery of both lower extremities, with unspecified presence of clinical manifestation (I70.203) Active confirmed Vital Signs Blood pressure diastolic 65 mm Hg 03/05/2025 Height 5 ft 4 in in 03/05/2025 Blood pressure systolic 120 mm Hg 03/05/2025 Weight 131 lbs 03/05/2025 BMI 22.48 kg/m2 03/05/2025 Encounters Encounter Location Date Provider Diagnosis [address] [address] 03/28/2024 Ariana Perica Atherosclerosis of zuni artery of both lower extremities, with unspecified presence of clinical manifestation I70.203 ; Tinea unguium B35.1 ; Pain in right toe(s) M79.674 ; Pain in left toe(s) M79.675 and Edema, lower extremity R60.[address] [address] 06/06/2024 Ariana Perica Atherosclerosis of zuni artery of both lower extremities, with unspecified presence of clinical manifestation I70.203 ; Tinea unguium B35.1 ; Pain in right toe(s) M79.674 and Pain in left toe(s) M79.675 [facility] [address] [address] 08/23/2024 Ariana Garcia Atherosclerosis of zuni artery of both lower extremities, with unspecified presence of clinical manifestation I70.203 ; Xerosis of skin L85.3 ; Tinea unguium B35.1 ; Pain in right toe(s) M79.674 and Pain in left toe(s) M79.[address] [address] 11/22/2024 Arcelia Rand Atherosclerosis of zuni artery of both lower extremities, with unspecified presence of clinical manifestation I70.203 ; Tinea unguium B35.1 ; Pain in right toe(s) M79.674 and Pain in left toe(s) M79.675 [facility] [address] 03/05/2025 Arcelia Rand Atherosclerosis of zuni artery of both lower extremities, with unspecified presence of clinical manifestation I70.203 ; Tinea unguium B35.1 ; Pain in right toe(s) M79.674 and Pain in left toe(s) M79.675 Assessments Encounter Date Diagnosis (ICD Code) Assessment Notes Treatment Notes Treatment Clinical Notes Section Notes 03/28/2024 Atherosclerosis of zuni artery of both lower extremities, with unspecified presence of clinical manifestation (ICD-10 - I70.203) 06/06/2024 Tinea unguium (ICD-10 - B35.1) 08/23/2024 Xerosis of skin (ICD-10 - L85.3) 08/23/2024 Atherosclerosis of zuni artery of both lower extremities, with unspecified presence of clinical manifestation (ICD-10 - I70.203) 11/22/2024 Tinea unguium (ICD-10 - B35.1) 06/06/2024 Atherosclerosis of zuni artery of both lower extremities, with unspecified presence of clinical manifestation (ICD-10 - I70.203) 11/22/2024 Atherosclerosis of zuni artery of both lower extremities, with unspecified presence of clinical manifestation (ICD-10 - I70.203) 03/05/2025 Tinea unguium (ICD-10 - B35.1) 03/05/2025 Atherosclerosis of zuni artery of both lower extremities, with unspecified presence of clinical manifestation (ICD-10 - I70.203) 03/05/2025 Pain in right toe(s) (ICD-10 - M79.674) 08/23/2024 Tinea unguium (ICD-10 - B35.1) 11/22/2024 Pain in right toe(s) (ICD-10 - M79.674) 06/06/2024 Pain in right toe(s) (ICD-10 - M79.674) 03/28/2024 Tinea unguium (ICD-10 - B35.1) 03/28/2024 Pain in right toe(s) (ICD-10 - M79.674) 06/06/2024 Pain in left toe(s) (ICD-10 - M79.675) 08/23/2024 Pain in right toe(s) (ICD-10 - M79.674) 11/22/2024 Pain in left toe(s) (ICD-10 - M79.675) 03/05/2025 Pain in left toe(s) (ICD-10 - M79.675) 08/23/2024 Pain in left toe(s) (ICD-10 - M79.675) 03/28/2024 Pain in left toe(s) (ICD-10 - M79.675) 03/28/2024 Edema, lower extremity (ICD-10 - R60.0) Plan Of Treatment Next Appt Details Provider Name:Arcelia parson, 07/02/2025 09:00:00 AM, [address] [place] [address], [phone], Insurance Providers Payer Name Payer Address Payer Phone Subscriber Number Group Number Insured Name Patient Relationship to Insured Coverage Start Date Coverage End Date [facility] [employer] Claims [address] [place] [id number] [phone] [id number] Bridget Rabago Self - patient is the [...]
== END 2025-03-20 11:15 | disposition home or self-care (01) ==
LOC: HO.HVS 10:43
PROVIDERS: PCP Physician Assistant; Visit Provider Surgery Vascular Surgery
DX: I71.40 Abdominal aortic aneurysm, without rupture, unspecified (principal); I63.231 Cerebral infarction due to unspecified occlusion or stenosis of right carotid arteries
CPT/HCPCS: 99214; G2211

== ENCOUNTER → 2025-03-20 10:42 | Outpatient (BNVA) | payer OTHER, SELFPAY | PROVIDERS: PCP Physician Assistant; Visit Provider Surgery Vascular Surgery | DX: I71.40 Abdominal aortic aneurysm, without rupture, unspecified (principal); I63.231 Cerebral infarction due to unspecified occlusion or stenosis of right carotid arteries; I10 Essential (primary) hypertension | CPT/HCPCS: 99212 ==

== ENCOUNTER 2025-04-18 09:27 | Outpatient (AMB) | payer OTHER, SELFPAY ==
--- NOTE | 2025-04-18 09:29 | MHC.OFFVIS ---
Vital Signs 04/18/25 09:39 Height 5 ft 4 in Weight 123 lb BMI 21.1 BP 138/72 Blood Pressure Location Rt brachial Position Sitting Pulse 96 Intake Visit Reasons: 3w Intake Note: Bridget presents to in office follow up of vomiting and abd pain. CC: Patient states that she continues to vomit everything and c/o abd pain. She states that she can't stand anything on her belly and the elastic of her pants hurt her stomach. Enterprise Account Manager Required: No Allergies No Known Allergies Allergy (Verified 04/18/25 09:50) HPI HPI 3w: Details: Assessment & Plan (1) Nausea and vomiting: Code(s): R11.2 - Nausea with vomiting, unspecified Category: Medical (2) GERD (gastroesophageal reflux disease): Code(s): K21.9 - Gastro-esophageal reflux disease without esophagitis Category: Medical (3) Chronic idiopathic constipation: Code(s): K59.04 - Chronic idiopathic constipation Category: Medical Plan She is having worsening vomiting after eating. Family says that she eats too fast. Has random sharp pains in the lower abd. She continues on Creon and omeprazole. Will, again, try reglan. Lung expansion may be impacting her ability to eat and the vomiting. She is moving her bowels well. Her resp status in terms of her advanced pulmonary disease would exclude most procedures. She continues on her Creon, omeprazole, and senna. ROV 3 weeks. Medications: New metoclopramide HCl (Reglan) 10 mg PO QIDACHS 120 tabs 6RF R11.2 - Nausea with vomiting, unspecified TODAY'S VISIT She continues to have nausea and vomiting. However with conversation she is only taking the metoclopramide twice a day and she really needs to take it 4 times a day in order to pace the stomach. 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 The family member who is with her also says that I mean tends to eat very quickly which likely is not conducive to allowing her stomach time to work. We are going to simplify her Creon dosing from 3 times a day to 2 caps twice a day in order to help with the complex medication schedule. However, her tax compliance officer seems to think she can set up the metoclopramide so that this will be less complex. Return office visit in 8 weeks [facility] Medical History DVT (deep venous thrombosis) COPD (chronic obstructive pulmonary disease) Left ulnar fracture COPD (chronic obstructive pulmonary disease) COVID-19 Early satiety Abdominal bloating COPD exacerbation Essential hypertension Precordial chest pain Tachycardia Dyspnea Atherosclerotic cardiovascular disease Psoriasis Hydroureter, right Pernicious anemia Raynauds disease Hernia Emphysema lung Asthma History of pyloric channel ulcer Glaucoma Mild acid reflux Surgical History S/P cardiac catheterization H/O carotid endarterectomy (04/01/20) History of AAA (abdominal aortic aneurysm) repair Hx of shoulder surgery Hx of varicose vein stripping Family History Father No problems noted. Mother No problems noted. Sister No problems noted. Sister No problems noted. Sister No problems noted. Sister No problems noted. Sister Cancer Son No problems noted. Social History Household Members: None Housing: House Do you presently have visiting nurse or other home services: Yes Alcohol intake: never Patient Tobacco Use Status: Former Tobacco user Tobacco use type: Cigarette Years Smoked: 65 e-Cigarette/Vaping Use: Never Used Second Hand Smoke Exposure: No Advance Directives Date on File: 06/11/21 service: No Current occupational status: retired Cognitive needs: Yes Hearing needs: No Vision needs: Yes Review of Systems Const Denies fatigue, Denies fever(s), Denies night sweats, Denies poor appetite and Denies weight loss ENT Reports Normal hearing present, Denies dental pain, Denies dysphagia, Denies hearing loss, Denies mouth pain, Denies odynophagia, Denies throat swelling, Denies tongue swelling and Reports other (Dentition adequate) Card Reports no additional complaints and Reports dyspnea on exertion Resp Reports dyspnea on exertion GI Details: Denies abdominal pain, Denies melena, Denies bloating, Denies hematochezia, Reports constipation, Denies GI cramping, Denies dysphagia, Denies excessive flatus, Denies early satiety, Reports heartburn, Denies diarrhea, Reports nausea, Denies odynophagia, Reports vomiting and Denies hematemesis Skin/Breast Denies pruritus, Denies lesions, Denies rash and Denies jaundice Neuro Reports Normal hearing present and Denies Abnormal speech present Endo Denies fatigue Aller/Immun Denies throat swelling and Denies tongue swelling Physical Exam Vital Signs: Last Vital Signs Pulse 96 04/18/25 09:39 BP 138/72 04/18/25 09:39 BMI result Body Mass Index 21.1 Const General: cooperative, no acute distress, well developed and well groomed Nutritional Appearance: well nourished and thin Orientation/consciousness: oriented to person, oriented to place and oriented to time Limitations: No language barrier and ambulation with cane HEENT Head: Yes normocephalic and Yes atraumatic Eyes General: appearance normal, both eyes and all related structures Pupils: Equal, round and reactive pupils present Neck Neck: Yes normal visual inspection and Yes no lymphadenopathy Thyroid: Thyroid normal Resp Other: oxygen dependent Effort & Inspection: normal respiratory effort and able to speak in complete sentences Auscultation: clear to auscultation bilaterally Cardio Rate: regular rate Rhythm: regular rhythm Heart sounds: Normal, physiologic split S2 sound present Peripheral pulses: radial pulses present and posterior tibial pulses present GI Inspection: No distended and No Abdominal panniculus present Palpation (GI): Soft to palpation, nontender, no guarding, not rigid and No hepatosplenomegaly present Percussion: Yes normal to percussion Auscultation: normal bowel sounds Rectal Exam - Female: deferred Skin General skin exam: no rashes or lesions noted, turgor normal, skin not dry, no jaundice, No spider nevi and no striae Rashes: no rashes Nails: normal Neuro General: oriented to person, oriented to place and oriented to time Cranial nerves: Yes Equal, round and reactive pupils present and Yes Normal hearing present Speech: No Abnormal speech present Extrem General: Yes normal to inspection, No clubbing, No cyanosis and No edema Psych Appearance: grossly normal and well kempt Mental Status: mental status grossly normal Speech and movement: Normal speech and movement present Affect: normal affect Attitude: cooperative Thought process: not confabulating and Impoverished thought process present Thought content: Normal thought content present Insight: Limited insight present (Psych) Judgement: Limited judgement present (Psych) Assessment & Plan Assessment & Plan (1) Nausea and vomiting: Code(s): R11.2 - Nausea with vomiting, unspecified Category: Medical (2) GERD (gastroesophageal reflux disease): Code(s): K21.9 - Gastro-esophageal reflux disease without esophagitis Category: Medical (3) Chronic idiopathic constipation: Code(s): K59.04 - Chronic idiopathic constipation Category: Medical Plan She continues on Creon and omeprazole, and Reglan 10 mg. She continues to have nausea and vomiting. However with conversation she is only taking the metoclopramide twice a day and she really needs to take it 4 times a day in order to pace the stomach. 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 The family member who is with her also says that I mean tends to eat very quickly which likely is not conducive to allowing her stomach time to work. We are going to simplify her Creon dosing from 3 times a day to 2 caps twice a day in order to help with the complex medication schedule. However, her tax compliance officer seems to think she can set up the metoclopramide so that this will be less complex. Return office visit in 8 weeks Medications: Changed From [id number] 24,000-76,000 -120,000 unit (Creon) administer with meals and/or snacks 1 cap PO TIDAC 30 days 90 caps 3RF To [id number] 24,000-76,000 -120,000 unit (Creon) administer with meals and/or snacks 2 caps PO BID 120 caps 3RF 30 days Refilled metoclopramide HCl (Reglan) 10 mg PO QIDACHS 120 tabs 6RF R11.2 - Nausea with vomiting, unspecified omeprazole 20 mg PO BID 180 caps 2RF Coding Level of Care Code Est Pt Level 3 (83162) Diagnoses Nausea and vomiting R11.2 GERD (gastroesophageal reflux disease) K21.9 Chronic idiopathic constipation K59.04
[2025-04-18 09:39] VITALS: BP 138/72; PULSE 96; BMI 21.1
== END 2025-04-18 10:37 | disposition home or self-care (01) ==
LOC: HO.HGI 09:28
PROVIDERS: PCP Physician Assistant; Visit Provider Nurse Practitioner
DX: R11.2 Nausea with vomiting, unspecified (principal); K21.9 Gastro-esophageal reflux disease without esophagitis; K59.04 Chronic idiopathic constipation
CPT/HCPCS: 99213

== ENCOUNTER → 2025-04-18 09:27 | Outpatient (BNVA) | payer OTHER, SELFPAY | PROVIDERS: PCP Physician Assistant; Visit Provider Nurse Practitioner | DX: K21.9 Gastro-esophageal reflux disease without esophagitis (principal); K59.04 Chronic idiopathic constipation; R11.2 Nausea with vomiting, unspecified | CPT/HCPCS: 99212 ==

== ENCOUNTER 2025-04-30 13:43 | Outpatient (AMB) | payer OTHER, SELFPAY ==
--- OUTSIDE RECORDS SUMMARY | 2024-11-21 05:30 | XMS_ITS ---
Author Organization [facility] Address [address] [place] [address] Care Team Providers Care Telecommunication Engineer Name Role Phone Pipe Washburn Primary Care Provider Unavailab Ariana Willis Unavailable [phone] Pratt Encounters Encounter Location Date Provider Diagnosis [facility] [address] [place] [address] 11/21/2024 Ariana Garcia Plan Of Treatment Next Appt Details Provider Name:Arcelia parson, 07/02/2025 09:00:00 AM, [address] [place], [address], Progress Notes * Dia RABAGOReganOB:1945 (79 yo F)Acc No.[id number]:11/21/2024 Progress Note Patient: Bridget SERRANO Provider: Crystal Garcia DPM :1945 A ge:79 Y S ex:Female Date:11/21/2024 Address:[address] [place], [place] [id number] Pcp:Pipe Washburn Subjective: * Chief Complaints: * [address] Pratt. * Medical History: Objective: * Vitals: Assessment: Plan: * Treatment: * Images: * The named appointment provid er may or may not be the originator of this progress note, and it is not deemed complete until electronically signed by the appointment provider. Sign off status: Pending * Provider: Crystal Garcia DPM Date: 0 11/21/2024 Generated for Vern hernández/Claudio/Hina on: 1 05:00 PM EDT
--- OUTSIDE RECORDS SUMMARY | 2025-01-26 08:00 | XMS_ITS ---
Author Organization [facility] Address [address] [place] [address] Care Team Providers Care Tractor Trailer Mechanic Name Role Phone Pipe Washburn Primary Care Provider Unavailab Ariana Willis Unavailable [phone] Encounters Encounter Location Date Provider Diagnosis [facility] [address] [place] [address] 01/26/2025 Ariana Garcia Plan Of Treatment Next Appt Details Provider Name:Arcelia parson, 07/02/2025 09:00:00 AM, [address] [place], [address], Progress Notes * Dia RABAGOReganOB:1945 (79 yo F)Acc No.[id number]:01/26/2025 Progress Note Patient: Bridget SERRANO Provider: Crystal Garcia DPM :1945 A ge:79 Y S ex:Female Date:01/26/2025 Address:[address] [place] [address] Pcp:Pipe Washburn Subjective: * Chief Complaints: * [...] 01/26/2025 Generated for Vern hernández/Claudio/Hina on: 1 05:00 PM EDT
--- OUTSIDE RECORDS SUMMARY | 2025-02-09 05:15 | XMS_ITS ---
Author Organization [facility] Address [address] [place] [address] Care Team Providers Care Cable Splicer Apprentice Name Role Phone Pipe Washburn Primary Care Provider Unavailab Ariana Willis Unavailable [phone] REASON FOR VISIT Seen Sooner Encounters Encounter Location Date Provider Diagnosis [facility] [address] [place] [address] 02/09/2025 Ariana Garcia Plan Of Treatment Next Appt Details Provider Name:Arcelia parson, 07/02/2025 09:00:00 AM, [address] [place], [address], Progress Notes * Dia RABAGOReganOB:1945 (79 yo F)Acc No.[id number]:02/09/2025 Progress Note Patient: Crystal MONZONRYDiane Provider: Crystal Garcia DPM :1945 A ge:79 Y S ex:Female Date:02/09/2025 Address:[address] [place], [place] [id number] Pcp:Pipe Washburn Subjective: * Chief Complaints: * [...] * Provider: Crystal Garcia DPM Date: 0 02/09/2025 Generated for Vern hernández/Claudio/Hina on: 1 05:00 PM EDT
[2025-04-30 13:46] VITALS: BP 128/52; PULSE 97; O2SAT 92; BMI 21.0
--- NOTE | 2025-04-30 13:46 | MHC.OFFVIS ---
Vital Signs 04/30/25 13:46 Height 5 ft 4 in Weight 122 lb 5.705 oz BMI 21.0 BP 128/52 L Blood Pressure Location Lt brachial Position Sitting Pulse 97 Pulse Source Pulse Oximeter Pulse Oximetry (%) 92 Oxygen Delivery Method Nasal Cannula Oxygen Flow Rate 2 Intake Visit Reasons: COPD Workers Compensation Defense Attorney Required: No Accompanied by: Self / Same As Patient Allergies No Known Allergies Allergy (Verified 04/30/25 13:51) HPI Comments Details: The patient is a 79 year-old woman with a history of lifelong smoking, COPD was been developing worsening shortness of breath progressive in nature. Right now she becomes very short of breath even with minimal activity moderate to severe. When she cannot breathe she feels very breathless and his and she is starts panting. Initially had been when she was in the room. In the office we did have her go for 6 minutes walk test patient maintain a pulse ox will above 95% throughout the ambulation. However, his noted that she became very short of breath with a Bandar score of 8/10 when heart rate increased to about 101,520. Therefore we had done an EKG demonstrating sinus that with activity. Patient did have poor R-wave progression in some T-wave abnormalities. At this point the patient does not have any chest pain and no resting her shortness of breath have subsided. Therefore, I will have undergo blood work and also referred to Cardiology. In the meantime will optimize her respiratory therapy by starting Trelegy inhaler should be a good inhaler for her for adherence and also for maximum respiratory capacity. 11/22/2020 The patient is here for a sick visit. She started developing worsening dyspnea even at rest. The patient has hard time with any activity due to significant panting shortness of breath. She also has been complaining of chest pressure. She did call the office yesterday and we advised her to go to the ER because of the chest discomfort. However, she did go but was too crowded and she left. Therefore she was seen today in the office. She has been using the Trelegy inhaler. Only partially helpful. Denies any fevers or chills. Denies any contact with anybody with COVID-19. Denies any productive cough or coughing general. The patient did have an EKG done in the office demonstrating some minimal ectopy otherwise no abnormalities. Therefore, she was given 2 treatments with DuoNeb and her symptoms improved dramatically. Her chest pressure subsided. The patient afterwards was ambulated had a 6 minutes walk test which she desaturated down to 88% with activity. Therefore supplemental oxygen with activity will be helpful as well. The patient does need a nebulizer. We did provide her with a nebulizer in the office and she was educated on how to use it. The patient be treated for COPD exacerbation. If however condition worsens or her symptoms worsen over the weekend that she needs to seek medical advice in the ER. 06/12/2022 the patient is here for a pulmonary follow-up visit. Overall the patient has been doing a little better. She is responding well to the oxygen. She does use with activity and sleep. She has been using her rescue inhaler. Her maintenance inhaler now is not being covered. She has been having to use her rescue inhaler more often. She does not tolerate the powdered inhalers. Therefore I will send her the Advair HFA with hopes that she can start using her maintenance therapy and improve her overall respiratory capacity. We did review her imaging. She did have a CT scan of the chest last year demonstrating hiatal hernia in addition to emphysema. Patient also had some atelectasis. Will go ahead and repeat her chest x-ray at this time. 12/18/2022 the patient is here for a pulmonary follow-up visit. Overall she is feeling better. She does use the oxygen with activity with good effect. Also use it with sleep. She has some discrepancies with her inhalers. I did advise her to use the Advair as prescribed and her rescue inhaler. She had a chest x-ray back in September 2022 personally by me demonstrating no acute disease. Clinically the patient is doing well right now. 06/18/2023 the patient is here for a pulmonary follow-up visit. The patient overall has been doing well. She denies any new complaints. She does have some dyspnea on exertion [id number] severity. She does use the oxygen with good effect. She has also been using the Advair inhaler. She still has some chest tightness and wheezing at times. The patient does have and prescription for Trelegy but she does know if . And the daughter is also wondering if for once a day medication be effective for her. We did talk about potentially optimizing her respiratory therapy by adding a long-acting muscarinic antagonist along with the Advair. If she finds that effective we can always switch her in the future to something like Trelegy. 12/22/2023 the patient is here for pulmonary follow-up visit. She is winded and tired. She does not have her oxygen with her because it is too heavy. Her oxygen did decrease significantly when she came in. When she sat down she was saturating 88% on room air. Will place her on a conserving device 2 L pulse Incruse able to maintain 90%. Then we ambulated her briefly and she was able to sustain a pulse ox of 90% on 4 L pulse. Therefore will request a conserving device for her in order for her to have better portability outside of her home. Also will request a portable oxygen concentrator since she has difficulties handling the oxygen tanks. We did teach her how to use it but she tends to forget. I do believe a portable oxygen concentrator be easier for her to use with ease. The patient has been using the Advair with good effect. She also needs albuterol medication which was sent to the pharmacy. Will have her get a chest x-ray. The patient does have a history of glaucoma now so will take her off all anticholinergics. 06/26/2024 the patient is here for a pulmonary follow-up visit. Overall the patient has been doing well. She has been frail though she has not been taking deep breaths. I did provide her with incentive spirometry in the office so we can work on the deep breathing exercises. She had an x-ray back in the summer with atelectasis and some decreased lung expansion. Seems to be tolerating the inhalers well. She can not tolerate anticholinergics because of glaucoma history. She does get a runny nose from the nasal cannula oxygen. She does not like to use any nasal sprays so she will have to just continue to blow her nose. Otherwise patient is without any other complaints. 11/13/2024 the patient is here for pulmonary follow-up visit. Continues to do well. She continues use the oxygen with good effect. She does have a portable oxygen concentrator the makes it a lot easier for. Provides better portability outside of the home. No recent x-rays to review although she does have a CAT scan coming up. She continues use respiratory inhalers with good effect. The patient does not report any visual changes which is reassuring with a history of glaucoma. Were avoiding any anticholinergic therapy. The patient will continue with current therapy will follow-up with imaging studies and she will follow-up sometime in late fall. She has not issues prior to this she will call for an earlier assessment. 04/30/2025 the patient is here for a pulmonary follow-up visit. Overall the patient has been doing well. She continues use the oxygen with good effect. She does use the oxygen 24 hours a day. Sometimes she does feel short of breath. She gets very nervous because she thinks she is going to . She actually became tearful in the office. She does take Advair but sometimes she does not take it effectively. In the nebulizer she does not always use it. We did write out a scheduled for her and I did provide her a spacer in order for her to use the HFA inhalers more effectively. She can use the spacer both with the Advair HFA and also with her albuterol HFA. She also has a nebulizer. She should be using the nebulizer at least twice a day. Over the summer she did have a CT scan of the abdomen which we personally reviewed. Lung windows actually look fairly good hyperinflated lungs and she does have a large hiatal hernia but otherwise no significant findings in the lower lung cuts. [facility] Medical History DVT (deep venous thrombosis) COPD (chronic obstructive pulmonary disease) Left ulnar fracture COPD (chronic obstructive pulmonary disease) COVID-19 Early satiety Abdominal bloating COPD exacerbation Essential hypertension Precordial chest pain Tachycardia Dyspnea Atherosclerotic cardiovascular disease Psoriasis Hydroureter, right Pernicious anemia Raynauds disease Hernia Emphysema lung Asthma History of pyloric channel ulcer Glaucoma Mild acid reflux Surgical History S/P cardiac catheterization H/O carotid endarterectomy (04/01/20) History of AAA (abdominal aortic aneurysm) repair Hx of shoulder surgery Hx of varicose vein stripping Family History Father No problems noted. Mother No problems noted. Sister No problems noted. Sister No problems noted. Sister No problems noted. Sister No problems noted. Sister Cancer Son No problems noted. Social History Household Members: None Housing: House Do you presently have visiting nurse or other home services: Yes Alcohol intake: never Patient Tobacco Use Status: Former Tobacco user Tobacco use type: Cigarette Years Smoked: 65 e-Cigarette/Vaping Use: Never Used Second Hand Smoke Exposure: No Advance Directives Date on File: 06/11/21 service: No Current occupational status: retired Cognitive needs: Yes Hearing needs: No Vision needs: Yes Review of Systems Const Denies chills, Denies fatigue, Denies fever(s), Denies weight gain and Denies weight loss ENT Denies dizziness, Denies lip swelling and Denies tongue swelling Card Denies chest pain, Denies leg edema, Denies lightheadedness, Denies palpitations, Reports dyspnea on exertion, Denies orthopnea and Denies other Resp Reports cough and Reports dyspnea on exertion GI Denies hematochezia and Denies change in stool character Musc Denies abnormal gait, Denies muscle weakness, Denies numbness, Denies radiating pain into limb and Denies tingling Neuro Denies abnormal gait, Denies dizziness, Denies numbness and Denies tingling Psych Denies no additional complaints Endo Denies fatigue and Denies palpitations Edwardo/Lymph Denies easy bleeding and Denies lymphadenopathy Aller/Immun Denies lip swelling and Denies tongue swelling Physical Exam Vital Signs: Last Vital Signs Pulse 97 04/30/25 13:46 BP 128/52 L 04/30/25 13:46 Pulse Ox 92 04/30/25 13:46 Oxygen Delivery Method Nasal Cannula 04/30/25 13:46 Oxygen Flow Rate 2 04/30/25 13:46 BMI result Body Mass Index 21.0 Const General: alert Neck Neck: Yes normal visual inspection, Yes full ROM and Yes no lymphadenopathy Chest Chest palpation & inspection: normal inspection of the chest Resp Effort & Inspection: normal respiratory effort Auscultation: no wheezes and diminished lung sounds Cardio Rate: regular rate Rhythm: regular rhythm Heart sounds: S1 normal heart sound present and S2 normal heart sound present GI Palpation (GI): Soft to palpation and nontender Auscultation: normal bowel sounds Skin General skin exam: rashes and/or lesions noted Assessment & Plan Assessment & Plan (1) COPD (chronic obstructive pulmonary disease): Code(s): J44.9 - Chronic obstructive pulmonary disease, unspecified Category: Medical Qualifiers: COPD type: emphysema Emphysema type: centrilobular Qualified Code(s): J43.2 - Centrilobular emphysema (2) Dyspnea: Code(s): R06.00 - Dyspnea, unspecified Category: Medical Qualifiers: Dyspnea type: dyspnea on exertion Qualified Code(s): R06.00 - Dyspnea, unspecified (3) Emphysema of lung: Code(s): J43.9 - Emphysema, unspecified Category: Medical Qualifiers: Emphysema type: centrilobular Qualified Code(s): J43.2 - Centrilobular emphysema (4) Chronic respiratory failure: Code(s): J96.10 - Chronic respiratory failure, unspecified whether with hypoxia or hypercapnia Category: Medical Qualifiers: Respiratory failure complication: hypoxia Qualified Code(s): J96.11 - Chronic respiratory failure with hypoxia Plan continue Advair HFA, provided Aerochamber KAYY as needed ISS oxygen supplementation revision: 2 L/pulse via nasal cannula at rest, 4L/pulse with activity. Has POC for better portability outside of the home Follow-up in 6 months Coding Level of Care Code Est Pt Level 4 (79663) Complex EM visit Add On G2211 Diagnoses Centrilobular emphysema J43.2 COPD type: emphysema Emphysema type: centrilobular Dyspnea on exertion R06.00 Dyspnea type: dyspnea on exertion Centrilobular emphysema J43.2 Emphysema type: centrilobular Chronic respiratory failure with hypoxia J96.11 Respiratory failure complication: hypoxia Time Spent (min) 17
--- OUTSIDE RECORDS SUMMARY | 2025-04-30 17:00 | XMS_ITS | Clinical Summary ---
Author Organization [employer] Address [address] [place] [address] Care Team Providers Care Teacher Hearing Impaired Name Role Phone Unavailable Primary Care Provider [...] patient's age to complete this topic Insurance [facility]
--- OUTSIDE RECORDS SUMMARY | 2025-04-30 17:01 | XMS_ITS | Patient Health Record ---
Author [facility] Address [address] [place] [address] Care Team Providers Care Gambling Cashier Name Role Phone Pipe Washburn Primary Care Provider Unavailab Ariana Willis Unavailable [phone] Arcelia Rand Unavailable [phone] Allergies No Known Allergies Reason For Referral [...] DAYS Oral; Duration: 90 Days Active Creon [address] UNIT Oral; Duration: 3 0 Days Active [...] Problem Acquired hammer toe of right foot (1947076270359727) Other hammer toe(s) (acquired), right foot (M20.41) Active confirmed Problem Acquired hammer toe of left foot (9253696751624462) Other hammer toe(s) (acquired), left foot (M20.42) Active confirmed Problem Bilateral atherosclerosis of arteries of lower limbs (disorder) (58619638507065481 ) Atherosclerosis of [place] artery of both lower extremities, with unspecified presence of clinical manifestation (I70.203) Active confirmed Vital Signs Blood pressure diastolic 65 mm Hg 03/05/2025 Height 5 ft 4 in in 03/05/2025 Blood pressure systolic 120 mm Hg 03/05/2025 Weight 131 lbs 03/05/2025 BMI 22.48 kg/m2 03/05/2025 Encounters Encounter Location Date Provider Diagnosis [address] [address] 06/06/2024 Ariana Perica Atherosclerosis of [place] artery of both lower extremities, with unspecified presence of clinical manifestation I70.203 ; Tinea unguium B35.1 ; Pain in right toe(s) M79.674 and Pain in left toe(s) M79.[address] [address] 08/23/2024 Ariana Perica Atherosclerosis of [place] artery of both lower extremities, with unspecified presence of clinical manifestation I70.203 ; Xerosis of skin L85.3 ; Tinea unguium B35.1 ; Pain in right toe(s) M79.674 and Pain in left toe(s) M79.[address] [facility] [address] [address] 11/22/2024 Arcelia Rand Atherosclerosis of [place] artery of both lower extremities, with unspecified presence of clinical manifestation I70.203 ; Tinea unguium B35.1 ; Pain in right toe(s) M79.674 and Pain in left toe(s) M79.675 [facility] [address] [address] 03/05/2025 Arcelia Rand Atherosclerosis of [place] artery of both lower extremities, with unspecified presence of clinical manifestation I70.203 ; Tinea unguium B35.1 ; Pain in right toe(s) M79.674 and Pain in left toe(s) M79.675 Assessments Encounter Date Diagnosis (ICD Code) Assessment Notes Treatment Notes Treatment Clinical Notes Section Notes 06/06/2024 Tinea unguium (ICD-10 - B35.1) 08/23/2024 Xerosis of skin (ICD-10 - L85.3) 08/23/2024 Atherosclerosis of [place] artery of both lower extremities, with unspecified presence of clinical manifestation (ICD-10 - I70.203) 11/22/2024 Tinea unguium (ICD-10 - B35.1) 06/06/2024 Atherosclerosis of [place] artery of both lower extremities, with unspecified presence of clinical manifestation (ICD-10 - I70.203) 11/22/2024 Atherosclerosis of [place] artery of both lower extremities, with unspecified presence of clinical manifestation (ICD-10 - I70.203) 03/05/2025 Tinea unguium (ICD-10 - B35.1) 03/05/2025 Atherosclerosis of [place] artery of both lower extremities, with unspecified [...] M79.675) Plan Of Treatment Next Appt Details Provider Name:Arcelia Madden eb, 07/02/2025 09:00:00 AM, [address] [place] [address], [phone], Insurance Providers Payer Name Payer Address Payer Phone Subscriber Number Group Number Insured Name Patient Relationship to Insured Coverage Start Date Coverage End Date [facility] [employer] Claims [address] [place], [place] [id number] Bridget Rabago Self - patient is the [...]
== END 2025-04-30 14:18 | disposition home or self-care (01) ==
LOC: HO.HPS 13:44
PROVIDERS: PCP Physician Assistant; Visit Provider Hospitalist
DX: J43.2 Centrilobular emphysema (principal); J96.11 Chronic respiratory failure with hypoxia
CPT/HCPCS: 99214; G2211

== ENCOUNTER → 2025-04-30 13:43 | Outpatient (BNVA) | payer OTHER, SELFPAY | PROVIDERS: PCP Physician Assistant; Visit Provider Hospitalist | DX: J43.2 Centrilobular emphysema (principal); J96.11 Chronic respiratory failure with hypoxia; Z99.81 Dependence on supplemental oxygen | CPT/HCPCS: 99212 ==

== ENCOUNTER 2025-05-01 08:05 | Outpatient (REF) | payer OTHER, SELFPAY ==
--- OUTSIDE RECORDS SUMMARY | 2024-11-21 05:30 | XMS_ITS ---
Author Organization [facility] Address [address] [place] [address] Care Team Providers Care Head Of Marketing Name Role Phone Pipe Washburn Primary Care Provider Unavailab Ariana Willis Unavailable [phone] Pratt Encounters Encounter Location Date Provider Diagnosis [facility] [address] [place] [address] 11/21/2024 Ariana Garcia Plan Of Treatment Next Appt Details Provider Name:Arcelia parson, 07/02/2025 09:00:00 AM, [address] [place], [address], Progress Notes * Dia RABAGOReganOB:1945 (79 yo F)Acc No.[id number]:11/21/2024 Progress Note Patient: Bridget SERRANO Provider: Crystal Garcia DPM :1945 A ge:79 Y S ex:Female Date:11/21/2024 Address:[address] [place], [place] [phone] Pcp:Pipe Washburn Subjective: * Chief Complaints: * [...] 11/21/2024 Generated for Vern hernández/Claudio/Hina on: 1 08:11 AM EDT
--- OUTSIDE RECORDS SUMMARY | 2025-01-26 08:00 | XMS_ITS ---
Author Organization [facility] Address [address] [place] [address] Care Team Providers Care In House Cra Name Role Phone Pipe Washburn Primary Care Provider Unavailab Ariana Willis Unavailable [phone] Encounters Encounter Location Date Provider Diagnosis [facility] [address] [place] [address] 01/26/2025 Ariana Garcia Plan Of Treatment Next Appt Details Provider Name:Arcelia parson, 07/02/2025 09:00:00 AM, [address] [place], [address], Progress Notes * Dia RABAGOReganOB:1945 (79 yo F)Acc No.[id number]:01/26/2025 Progress Note Patient: Bridget SERRANO Provider: Crystal Garcia DPM :1945 A ge:79 Y S ex:Female Date:01/26/2025 Address:[address] [place] [address] Pcp:Pipe Washburn Subjective: * Chief Complaints: * [...] 01/26/2025 Generated for Vern hernández/Claudio/Hina on: 1 08:11 AM EDT
--- OUTSIDE RECORDS SUMMARY | 2025-02-09 05:15 | XMS_ITS ---
Author Organization [facility] Address [address] [place] [address] Care Team Providers Care Assistant Film Editor Name Role Phone Pipe Washburn Primary Care Provider Unavailab Ariana Willis Unavailable [phone] REASON FOR VISIT Seen Sooner Encounters Encounter Location Date Provider Diagnosis [facility] [address] [place] [address] 02/09/2025 Ariana Garcia Plan Of Treatment Next Appt Details Provider Name:Arcelia parson, 07/02/2025 09:00:00 AM, [address] [place], [address], Progress Notes * Dia RABAGOReganOB:1945 (79 yo F)Acc No.[id number]:02/09/2025 Progress Note Patient: Crystal MONZONRYDiane Provider: Crystal Garcia DPM :1945 A ge:79 Y S ex:Female Date:02/09/2025 Address:[address] [place], [place] [id number] Pcp:Pipe Washburn Subjective: * Chief Complaints: * [...] 02/09/2025 Generated for Vern hernández/Claudio/Hina on: 1 08:11 AM EDT
--- OUTSIDE RECORDS SUMMARY | 2025-05-01 08:11 | XMS_ITS | Clinical Summary ---
Author Organization [employer] Address [address] [place] [address] Care Team Providers Care Boss Miner Name Role Phone Unavailable Primary Care Provider [...] age to complete this topic Insurance [facility]
--- OUTSIDE RECORDS SUMMARY | 2025-05-01 08:12 | XMS_ITS | Patient Health Record ---
Author [facility] Address [address] [place] [address] Care Team Providers Care Architectural Coating Finisher Name Role Phone Pipe Washburn Primary Care Provider Unavailab Ariana Willis Unavailable [phone] Arcelia Rand Unavailable [phone] Allergies No Known Allergies Reason For Referral [...] DAYS Oral; Duration: 90 Days Active Creon [address] UNIT Oral; Duration: 3 0 Days Active [...] Problem Acquired hammer toe of right foot (4093150305812207) Other hammer toe(s) (acquired), right foot (M20.41) Active confirmed Problem Acquired hammer toe of left foot (2148844428097040) Other hammer toe(s) (acquired), left foot (M20.42) Active confirmed Problem Bilateral atherosclerosis of arteries of lower limbs (disorder) (37106490292906424 ) Atherosclerosis of [place] artery of both lower extremities, with unspecified presence of clinical manifestation (I70.203) Active confirmed Vital Signs Blood pressure diastolic 65 mm Hg 03/05/2025 Height 5 ft 4 in in 03/05/2025 Blood pressure systolic 120 mm Hg 03/05/2025 Weight 131 lbs 03/05/2025 BMI 22.48 kg/m2 03/05/2025 Encounters Encounter Location Date Provider Diagnosis [address] [address] 06/06/2024 Ariana Perica Atherosclerosis of [place] artery of both lower extremities, with unspecified presence of clinical manifestation I70.203 ; Tinea unguium B35.1 ; Pain in right toe(s) M79.674 and Pain in left toe(s) M79.[address] [address] 08/23/2024 Ariana Perica Atherosclerosis of [place] artery of both lower extremities, with unspecified presence of clinical manifestation I70.203 ; Xerosis of skin L85.3 ; Tinea unguium B35.1 ; Pain in right toe(s) M79.674 and Pain in left toe(s) M79.675 [facility] [address] [address] 11/22/2024 Arcelia Rand Atherosclerosis of [place] artery of both lower extremities, with unspecified presence of clinical manifestation I70.203 ; Tinea unguium B35.1 ; Pain in right toe(s) M79.674 and Pain in left toe(s) M79.675 [facility] [address] [address] 03/05/2025 Arcelia Rand Atherosclerosis of [place] artery of both lower extremities, with unspecified presence of clinical manifestation I70.203 ; Tinea unguium B35.1 ; Pain in right toe(s) M79.674 and Pain in left toe(s) M79.675 Assessments Encounter Date Diagnosis (ICD Code) Assessment Notes Treatment Notes Treatment Clinical Notes Section Notes 06/06/2024 Tinea unguium (ICD-10 - B35.1) 08/23/2024 Xerosis of skin (ICD-10 - L85.3) 08/23/2024 Atherosclerosis of [place] artery of both lower extremities, with unspecified presence of clinical manifestation (ICD-10 - I70.203) 11/22/2024 Tinea unguium (ICD-10 - B35.1) 06/06/2024 Atherosclerosis of [place] artery of both lower extremities, with unspecified presence of clinical manifestation (ICD-10 - I70.203) 11/22/2024 Atherosclerosis of [place] artery of both lower extremities, with unspecified presence of clinical manifestation (ICD-10 - I70.203) 03/05/2025 Tinea unguium (ICD-10 - B35.1) 03/05/2025 Atherosclerosis of [place] artery of both lower extremities, with unspecified [...] Provider Name:Arcelia Madden eb, 07/02/2025 09:00:00 AM, [address] [place] [address], [phone], Insurance Providers Payer Name Payer Address Payer Phone Subscriber Number Group Number Insured Name Patient Relationship to Insured Coverage Start Date Coverage End Date [facility] [employer] Claims [address] [place], [place] [address] [id number] Bridget Rabago Self - patient is the [...]
[2025-05-01 09:16] LABS: Hematocrit 42.6 % (37.0-47.0); Hemoglobin 12.8 g/dl (12.0-16.0); Mean Corpuscular HGB Conc 30.0 g/dl (31.0-35.0); Mean Corpuscular Hemoglobin 26.5 pg (27.0-33.0); Mean Corpuscular Volume 88.2 fL (80.0-98.0); NRBC Abs Auto 0.000 X10*3/uL (0.0-0.012); NRBC Pct Auto 0.0 /100WBC (0.0-0.2); Platelet Count 221 X10*3/uL (160-400); Red Blood Count 4.83 X10*6/uL (4.20-5.50); White Blood Count 5.6 X10*3/uL (4.8-10.8)
[2025-05-01 10:14] LABS: Alanine Aminotransferase 10 U/L (0-31); Albumin Level 4.2 g/dL (3.5-5.0); Alkaline Phosphatase 80 U/L (39-117); Anion Gap 11 (12-20); Aspartate Amino Transferase 18 U/L (5-31); Blood Urea Nitrogen 17 mg/dL (9-16); Calcium 9.3 mg/dL (8.4-10.2); Carbon Dioxide 33 mmol/L (22-29); Chloride 104 mmol/L (96-108); Cholesterol 155 mg/dL (<200); Estimated Glomerular Filt Rate > 60; HDL Cholesterol 59 mg/dL (>40); Potassium 4.7 mmol/L (3.3-5.1); Sodium 143 mmol/L (135-145); Total Protein 7.4 g/dL (6.5-8.0); Triglycerides 65 mg/dL (<150)
== END 2025-05-01 08:06 | disposition home or self-care (01) ==
LOC: HO.LAB 08:05
PROVIDERS: Visit Provider Physician Assistant
DX: J43.2 Centrilobular emphysema (principal); E78.2 Mixed hyperlipidemia; R73.09 Other abnormal glucose
CPT/HCPCS: 36415; 80053; 80061; 83036; 85027

== ENCOUNTER 2025-05-02 12:31 | Outpatient (REF) | payer OTHER, SELFPAY ==
[2025-05-02 14:16] LABS: Microalbum/Creatinine Ratio Ur 6.0 ug/mg cr (<30)
--- OUTSIDE RECORDS SUMMARY | 2025-05-02 17:20 | XMS_ITS | Clinical Summary ---
Author Organization [employer] Address [address] [facility] [facility] [address] [place] [address] Care Team Providers Care Torpedo Shooter Name Role Phone Unavailable Primary Care Provider [...] patient's age to complete this topic Insurance [facility]
== END 2025-05-02 12:32 | disposition home or self-care (01) ==
LOC: HO.LNP 12:31
PROVIDERS: Visit Provider Physician Assistant
DX: I10 Essential (primary) hypertension (principal)
CPT/HCPCS: 82043; 82570

== ENCOUNTER 2025-05-08 08:25 | Outpatient (REF) | payer OTHER, SELFPAY ==
--- OUTSIDE RECORDS SUMMARY | 2025-01-26 08:00 | XMS_ITS ---
Author Organization [facility] Address [address] [place] [address] Care Team Providers Care Fudge Candy Maker Name Role Phone Pipe Washburn Primary Care Provider Unavailab Ariana Willis Unavailable [phone] Encounters Encounter Location Date Provider Diagnosis [facility] [address] [place] [address] 01/26/2025 Ariana Garcia Plan Of Treatment Next Appt Details Provider Name:Arcelia parson, 07/02/2025 09:00:00 AM, [address] [place], [address], Progress Notes * Dia RABAGOReganOB:1945 (79 yo F)Acc No.[id number]:01/26/2025 Progress Note Patient: Bridget SERRANO Provider: Crystal Garcia DPM :1945 A ge:79 Y S ex:Female Date:01/26/2025 Address:[address] [place] [address] Pcp:Pipe Washburn Subjective: * Chief Complaints: * [...] DPM Date: 0 01/26/2025 Generated for Vern hernández/Claudio/Efrenitting on: 1 10:32 AM EDT
--- OUTSIDE RECORDS SUMMARY | 2025-02-09 05:15 | XMS_ITS ---
Author Organization [facility] Address [address] [place] [address] Care Team Providers Care Senior Manager [employer] Name Role Phone Pipe Washburn Primary Care Provider Unavailab Ariana Willis Unavailable [phone] REASON FOR VISIT Seen Sooner Encounters Encounter Location Date Provider Diagnosis [facility] [address] [place] [address] 02/09/2025 Ariana Garcia Plan Of Treatment Next Appt Details Provider Name:Arcelia parson, 07/02/2025 09:00:00 AM, [address] [place], [address], Progress Notes * Dia RABAGOReganOB:1945 (79 yo F)Acc No.[id number]:02/09/2025 Progress Note Patient: Crystal MONZONRYDiane Provider: Crystal Garcia DPM :1945 A ge:79 Y S ex:Female Date:02/09/2025 Address:[address] [place], [place] [id number] Pcp:Pipe Washburn Subjective: * Chief Complaints: * [...] 02/09/2025 Generated for Vern hernández/Claudio/Hina on: 1 10:32 AM EDT
--- NOTE | ~2025-05-08 | XR_ITS ---
EXAMINATION: XR CHEST CLINICAL INFORMATION: J43.2 - Centrilobular emphysema COMPARISON: Previous x-rays January 2024 TECHNIQUE: 2 views of the chest were obtained. FINDINGS: Biapical pleural thickening, right greater than left. Lungs are otherwise clear. No consolidation or pulmonary edema. No pleural effusion or pneumothorax. Normal heart size. Mild aortic calcification. Small esophageal hernia. Partially visualized aortic stent graft seen in the upper abdominal aorta. Increased thoracic kyphosis and degenerative changes of the spine. Old appearing T8 vertebral body compression fracture and post augmentation changes. Moderate old appearing T11 vertebral body compression fracture. Widened right acromioclavicular joint unchanged. XR/XR chest 2V IMPRESSION: No evidence for acute disease in the chest. Biapical pleural thickening. Esophageal hernia. Electronically signed by: Alma Camargo MD 05/08/2025 09:52 AM EDT
--- OUTSIDE RECORDS SUMMARY | 2025-05-08 10:32 | XMS_ITS | Patient Health Record ---
Author Organization [facility] Address [address] [place] [address] Care Team Providers Care Academy Director Name Role Phone Pipe Washburn Primary Care Provider Unavailab Ariana Willis Unavailable [phone] Arcelia Rand Unavailable [phone] Allergies No Known Allergies Reason For Referral [...] DAYS Oral; Duration: 90 Days Active Creon [id number] UNIT Oral; Duration: 3 0 Days Active [...] Problem Acquired hammer toe of right foot ([id number]) Other hammer toe(s) (acquired), right foot (M20.41) Active confirmed Problem Acquired hammer toe of left foot ([id number]) Other hammer toe(s) (acquired), left foot (M20.42) Active confirmed Problem Bilateral atherosclerosis of arteries of lower limbs (disorder) ([id number] ) Atherosclerosis of [place] artery of both lower extremities, with unspecified presence of clinical manifestation (I70.203) Active confirmed Vital Signs Blood pressure diastolic 65 mm Hg 03/05/2025 Height 5 ft 4 in in 03/05/2025 Blood pressure systolic 120 mm Hg 03/05/2025 Weight 131 lbs 03/05/2025 BMI 22.48 kg/m2 03/05/2025 Encounters Encounter Location Date Provider Diagnosis [address] [address] 06/06/2024 Ariana Perica Atherosclerosis of [place] artery of both lower extremities, with unspecified presence of clinical manifestation I70.203 ; Tinea unguium B35.1 ; Pain in right toe(s) M79.674 and Pain in left toe(s) M79.[address] [address] 08/23/2024 Ariana Perica Atherosclerosis of [place] artery of both lower extremities, with unspecified presence of clinical manifestation I70.203 ; Xerosis of skin L85.3 ; Tinea unguium B35.1 ; Pain in right toe(s) M79.674 and Pain in left toe(s) M79.675 [facility] [address] [address] 11/22/2024 Arcelia Rand Atherosclerosis of [place] artery of both lower extremities, with unspecified presence of clinical manifestation I70.203 ; Tinea unguium B35.1 ; Pain in right toe(s) M79.674 and Pain in left toe(s) M79.675 [facility] [address] [address] 03/05/2025 Arcelia Rand Atherosclerosis of [place] artery of both lower extremities, with unspecified presence of clinical manifestation I70.203 ; Tinea unguium B35.1 ; Pain in right toe(s) M79.674 and Pain in left toe(s) M79.675 Assessments Encounter Date Diagnosis (ICD Code) Assessment Notes Treatment Notes Treatment Clinical Notes Section Notes 06/06/2024 Tinea unguium (ICD-10 - B35.1) 08/23/2024 Xerosis of skin (ICD-10 - L85.3) 08/23/2024 Atherosclerosis of [place] artery of both lower extremities, with unspecified presence of clinical manifestation (ICD-10 - I70.203) 11/22/2024 Tinea unguium (ICD-10 - B35.1) 06/06/2024 Atherosclerosis of [place] artery of both lower extremities, with unspecified presence of clinical manifestation (ICD-10 - I70.203) 11/22/2024 Atherosclerosis of [place] artery of both lower extremities, with unspecified presence of clinical manifestation (ICD-10 - I70.203) 03/05/2025 Tinea unguium (ICD-10 - B35.1) 03/05/2025 Atherosclerosis of [place] artery of both lower extremities, with unspecified [...] Provider Name:Arcelia Madden eb, 07/02/2025 09:00:00 AM, [address] [place] [address], [phone], Insurance Providers Payer Name Payer Address Payer Phone Subscriber Number Group Number Insured Name Patient Relationship to Insured Coverage Start Date Coverage End Date [facility] [employer] Claims [address] [place], [place] [id number] Bridget Rabago Self - patient is the [...]
== END 2025-05-08 08:26 | disposition home or self-care (01) ==
LOC: HO.XRAY 08:25
PROVIDERS: PCP Physician Assistant; Visit Provider Physician Assistant
DX: J43.2 Centrilobular emphysema (principal); E78.2 Mixed hyperlipidemia; I10 Essential (primary) hypertension; R73.09 Other abnormal glucose; I63.511 Cerebral infarction due to unspecified occlusion or stenosis of right middle cerebral artery; Z79.82 Long term (current) use of aspirin; Z79.899 Other long term (current) drug therapy
CPT/HCPCS: 71046; 99212

== ENCOUNTER 2025-05-08 08:25 | Outpatient (AMB) | payer OTHER, SELFPAY ==
--- NOTE | 2025-05-08 08:37 | MHC.PC.OV ---
Vital Signs 05/08/25 08:39 Height 5 ft 0.24 in Weight 120 lb BMI 23.2 BP 130/70 Blood Pressure Location Lt brachial Position Sitting Pulse 88 Pulse Source Pulse Oximeter Temp 96.9 F Temp Source Temporal Artery Scan Pulse Oximetry (%) 90 L Oxygen Delivery Method Nasal Cannula Intake Visit Reasons: 6 month f.u Intake Note: Patient is here to follow up on COPD, Chronic pain, HTN, HLD. Geospatial Information Technologist Required: No Pharmacometrician: Present Accompanied by: Niece Allergies No Known Allergies Allergy (Verified 05/08/25 08:51) Medication List - Last Reconciled 05/08/25 by Pipe Washburn PA-C acetaminophen 650 mg (2 x 325 mg) PO Q6H PRN albuterol sulfate 2.5 mg inhalation Q6H PRN albuterol sulfate 90 mcg/actuation (Ventolin HFA) 2 inhalations inhalation Q4H PRN aspirin (Adult Aspirin Regimen) 81 mg PO DAILY atorvastatin 80 mg PO DAILY calcium carbonate 500 mg PO BID cholecalciferol (vitamin D3) 25 mcg PO DAILY commode (bedside commode) As directed cyanocobalamin (vitamin B-12) 1,000 mcg PO DAILY fluticasone propion-salmeterol 113-14 mcg/actuation (AirDuo RespiClick) 1 inh inhalation Q12H 30 days fluticasone propion-salmeterol 115-21 mcg/actuation (Advair HFA) 2 puffs inhalation Q12H 30 days latanoprost 0.005% 1 drp ophthalmic (eye) BEDTIME vrelmu-jcsrlpry-vbkjzka (pork) 24,000-76,000 -120,000 unit (Creon) 2 caps PO BID 30 days lisinopril 10 mg PO DAILY 90 days metoclopramide HCl (Reglan) 10 mg PO QIDACHS nebulizers As directed nitroglycerin 0.4 mg sublingual Q5M PRN omeprazole 20 mg PO BID [transport wheelchair As directed] triamcinolone acetonide 0.1% 1 appl topical DAILY 30 days [wheelchair cushion As directed] Tobacco use date assessed: 05/08/25 Fall risk assessment: No Falls in past year Last assessed Fall Risk: 05/08/25 Dental Screening Dental Screen Date: 11/06/24 HPI 6 month f.u HPI Details Patient is a 79-year-old female here today for follow-up visit. Patient has multiple medical problems including osteoporosis, lumbar spondylosis and stenosis, COPD, history of DVT on Eliquis, peripheral arterial disease, carotid stenosis , abdominal aortic aneurysm, hypertension, hyperlipidemia. .. COPD: Patient is followed closely by pulmonology here in [place], was a former smoker (4 packs a day) Continues on maintenance inhalers with decent affect. Reports over the last week having some shortness of breath. Today's SpO2 sat at 90. Will send for chest x-ray to evaluate the lungs.. She is now O2 dependent via nasal cannula -2 liters/minute. She does report often getting bloody noses from the dry nasal mucosa secondary the oxygen use. She does not want to use any nasal sprays Advised on using humidifier .. DVT : Also followed by vascular surgeon for her carotid stenosis and a abdominal aortic aneurysm, undergoing surveillance imaging. Has had multiple vascular surgeries including abdominal aortic aneurysm repair and carotid endarterectomy. .. AAA: Has a abdominal aortic aneurysm that is being followed by [place] vascular surgeon, has upcoming CT angiogram of the abdomen and January of 2025. .. Hypertension: Blood pressure today in office acceptable, she does report at times having chest discomforts to which she uses nitro which helps relieve her pain. Had followed [facility] in October, with concerns of chest pains at rest and will be sent for cardiac echocardiogram in near future. .. Hyperlipidemia: Patient continues on high-dose statin therapy. Most recent lipid panel showing excellent control over total cholesterol and LDL. Goal LDL to remain below 100, optimally below 70. Laboratory Tests 05/01/25 05/02/25 08:25 02:54 RBC 4.83 Hgb 12.8 Creatinine 0.81 Cholesterol 155 LDL Cholesterol, C alc 83 Urine Microalbumin 9.0 [facility] Medical History DVT (deep venous thrombosis) COPD (chronic obstructive pulmonary disease) Left ulnar fracture COPD (chronic obstructive pulmonary disease) COVID-19 Early satiety Abdominal bloating COPD exacerbation Essential hypertension Precordial chest pain Tachycardia Dyspnea Atherosclerotic cardiovascular disease Psoriasis Hydroureter, right Pernicious anemia Raynauds disease Hernia Emphysema lung Asthma History of pyloric channel ulcer Glaucoma Mild acid reflux Surgical History S/P cardiac catheterization H/O carotid endarterectomy (04/01/20) History of AAA (abdominal aortic aneurysm) repair Hx of shoulder surgery Hx of varicose vein stripping Family History Father No problems noted. Mother No problems noted. Sister No problems noted. Sister No problems noted. Sister No problems noted. Sister No problems noted. Sister Cancer Son No problems noted. Social History Household Members: None Housing: House Do you presently have visiting nurse or other home services: Yes Alcohol intake: never Patient Tobacco Use Status: Former Tobacco user Tobacco use type: Cigarette Years Smoked: 65 e-Cigarette/Vaping Use: Never Used Second Hand Smoke Exposure: Yes Advance Directives Date on File: 06/11/21 service: No Current occupational status: retired Cognitive needs: Yes Hearing needs: No Vision needs: Yes Questionnaire Thrive Questionnaire Date Thrive assessed: 11/06/24 I am a: Patient What is your living situation today?: I have a steady place to live Within the past 12 months, did the food you bought not last and you didn't have the money to get more?: I choose not to answer this question Within the past 12 months, did you worry whether your food would run out before you got money to buy more?: I choose not to answer this question Do you have trouble paying for medicines?: I choose not to answer this question Do you have trouble getting transportation to medical appointments?: I choose not to answer this question Do you have trouble paying your heating and electricity bill?: I choose not to answer this question Do you have trouble taking care of your child, family member or friend?: I choose not to answer this question Do you have trouble with day-to-day activities such as bathing, preparing meals, shopping, managing finances, etc.?: I choose not to answer this question Are you currently unemployed and looking for a job?: I choose not to answer this question Are you interested in more education?: I choose not to answer this question Please select the resources that you would like help with: None Currently or been in a relationship where the following occur: I choose not to answer THRIVE Score: 0 AUDIT C Alcohol Use Questionnaire (AUDIT-C) 3. How often do you have six or more drinks on one occasion?: Never Total Score: 0 CHARLES-7 AMB Questionnaire CHARLES-7 Date CHARLES - 7 assessed: 11/06/24 Source: Developed by Drs. Wallace Nathan, Maddi Steven, Codey Miller and colleagues, with an educational zachary from [employer] ([employer]). Review of Systems Const Denies headache(s) Eyes Denies loss of vision ENT Denies vertigo, Denies dizziness, Denies headache(s) and Denies sore throat Card Denies chest pain, Denies leg edema, Denies lightheadedness, Reports dyspnea and Denies dyspnea on exertion Resp Denies cough, Denies hemoptysis, Reports dyspnea, Denies dyspnea on exertion and Denies wheezing GI Denies abdominal pain, Denies melena, Denies constipation, Denies diarrhea and Denies vomiting Denies urinary frequency, Denies dysuria and Denies urinary urgency Musc Denies arthralgias, Denies joint swelling, Denies numbness and Denies tingling Neuro Denies Abnormal speech present, Denies behavioral changes, Denies vertigo, Denies dizziness, Denies headache(s), Denies loss of vision, Denies memory loss, Denies numbness and Denies tingling Psych Denies anxiety, Denies behavioral changes, Denies depression, Denies memory loss and Denies panic attacks Edwardo/Lymph Denies easy bleeding and Denies easy bruising Aller/Immun Denies wheezing Physical exam (Primary Care) Vital Signs: Last Vital Signs Temp 96.9 F 05/08/25 08:39 Pulse 88 05/08/25 08:39 BP 130/70 05/08/25 08:39 Pulse Ox 90 L 05/08/25 08:39 Oxygen Delivery Method Nasal Cannula 05/08/25 08:39 BMI result Body Mass Index 23.2 Tobacco/Smoking Status: Tobacco use Status Tobacco use date assessed 05/08/25 05/08/25 08:42 Patient Tobacco Use Status Former Tobacco user 05/08/25 08:42 Tobacco use type Cigarette 05/08/25 08:42 e-Cigarette/Vaping Use Never Used 05/08/25 08:42 Thrive Assessment: Date of Thrive Assessment Date Thrive assessed 11/06/24 05/08/25 08:42 Currently or been in a relationship where the following occur: I choose not to answer Const General: healthy appearing, no acute distress, alert and awake Nutritional Appearance: well nourished Orientation/consciousness: oriented to person, oriented to place and oriented to time HENMT Ears: TM's normal bilaterally General nose exam: Normal nasal mucous membranes and turbinates present Eyes Conjunctivae: conjunctivae normal Sclerae: sclerae normal Pupils: Equal, round and reactive pupils present Neck Neck: Yes no lymphadenopathy and Yes no JVD Thyroid: Thyroid normal Carotids: no bruits Resp Effort & Inspection: normal respiratory effort and not tachypneic Auscultation: no crackles, no rales, no rhonchi and no wheezes Cardio Rate: regular rate Rhythm: regular rhythm Heart sounds: no murmurs and normal S1 and S2 GI Palpation (GI): Soft to palpation, nontender, no hepatomegaly and no splenomegaly Auscultation: normal bowel sounds Skin General skin exam: no rashes or lesions noted and dry skin Neuro General: oriented to person, oriented to place and oriented to time Cranial nerves: Yes Equal, round and reactive pupils present Speech: No Abnormal speech present Gait exam (Neuro): Normal gait present Motor exam (neuro): no tremor noted Extrem Right upper extremity: full ROM Left upper extremity: full ROM Right lower extremity: full ROM; no edema Left lower extremity: full ROM; no edema Psych Mental Status: mental status grossly normal Speech and movement: Normal speech and movement present Affect: normal affect Attitude: cooperative Thought process: Normal thought process present Coding Level of Care Code Est Pt Level 4 (74561) Diagnoses Centrilobular emphysema J43.2 COPD type: emphysema Emphysema type: centrilobular Mixed hyperlipidemia E78.2 Hyperlipidemia type: mixed hyperlipidemia Primary hypertension I10 Hypertension type: primary hypertension Impaired glucose metabolism R73.09 Abdominal aortic aneurysm (AAA) without rupture I71.4 Presence of rupture: without rupture Cerebrovascular accident (CVA) due to stenosis of right middle cerebral artery I63.511 CVA mechanism: stenosis Precerebral and cerebral artery: middle cerebral artery Laterality of affected vessel: right Assessment & Plan Assessment & Plan (1) COPD (chronic obstructive pulmonary disease): Code(s): J44.9 - Chronic obstructive pulmonary disease, unspecified Category: Medical Qualifiers: COPD type: emphysema Emphysema type: centrilobular Qualified Code(s): J43.2 - Centrilobular emphysema Plan: She is a previous heavy smoker, quit 4 years ago. She is followed by pulmonology here in [place]. Continues on continuous O2 via nasal cannula. Note patient does report feeling a bit short of breath over the last week. Will send for chest x-ray to evaluate for any pneumonia or ? COPD exacerbation. Today's SpO2 set at 90% (2) Hyperlipidemia: Code(s): E78.5 - Hyperlipidemia, unspecified Category: Medical Qualifiers: Hyperlipidemia type: mixed hyperlipidemia Qualified Code(s): E78.2 - Mixed hyperlipidemia Plan: Patient's most recent lipid panel showing good control over total cholesterol and LDL. Will continue her current dose of atorvastatin with goal LDL to be optimally below 70 (3) Hypertension: Code(s): I10 - Essential (primary) hypertension Category: Medical Qualifiers: Hypertension type: primary hypertension Qualified Code(s): I10 - Essential (primary) hypertension Plan: Patient's blood pressure acceptable today in office. She will continue her current dose of antihypertensive medication with goal blood pressure to remain below 140/90 (4) Impaired glucose metabolism: Code(s): R73.09 - Other abnormal glucose Category: Medical Plan: Patient's fasting blood sugar improved at 98, A1c of 5.9.. She does report drinking a lot of soda. She will reduce her soda intake. (5) Abdominal aortic aneurysm (AAA): Comment: 12/20/2017 - endovascular aortic aneurysm repair Code(s): I71.4 - Abdominal aortic aneurysm, without rupture Category: Medical Qualifiers: Presence of rupture: without rupture Qualified Code(s): I71.4 - Abdominal aortic aneurysm, without rupture Plan: Patient followed by [place] vascular surgeon in is under surveillance with annual CTs of the abdomen. (6) CVA (cerebral vascular accident): Code(s): I63.9 - Cerebral infarction, unspecified Category: Medical Qualifiers: CVA mechanism: stenosis Precerebral and cerebral artery: middle cerebral artery Laterality of affected vessel: right Qualified Code(s): I63.511 - Cerebral infarction due to unspecified occlusion or stenosis of right middle cerebral artery Plan: Patient has had 2 strokes in the past. Will continue to reduce her risk for recurrent stroke with high potency statin therapy and continued on aspirin indefinitely. Orders: Orders Lipid Panel Today I63.231 - Cerebral infarction due to unspecified occlusion or stenosis of right carotid arteries Comprehensive [place]. Panel Fast Today E78.2 - Mixed hyperlipidemia XR chest 2V Today J43.2 - Centrilobular emphysema Complete Blood Count no Diff Today E78.2 - Mixed hyperlipidemia Microalbumin, Random (w Creat) Today I10 - Essential (primary) hypertension Patient Instructions: Goal: Blood pressure to remain below 140/90, LDL optimally below 70 Barriers: Adherence to physical activity and healthy eating habits
[2025-05-08 08:39] VITALS: BP 130/70; PULSE 88; TEMP 36.1; O2SAT 90; BMI 23.2
--- OUTSIDE RECORDS SUMMARY | 2025-05-08 09:03 | XMS_ITS | Clinical Summary ---
Author Organization [employer] Address [address] [place] [address] Care Team Providers Care Amphibious Operations Officer Name Role Phone Unavailable Primary Care Provider [...] to complete this topic Insurance [facility]
== END 2025-05-08 09:08 | disposition home or self-care (01) ==
LOC: HO.HMCH 08:26
PROVIDERS: PCP Physician Assistant; Visit Provider Physician Assistant
DX: J43.2 Centrilobular emphysema (principal); I63.511 Cerebral infarction due to unspecified occlusion or stenosis of right middle cerebral artery; E78.2 Mixed hyperlipidemia; I10 Essential (primary) hypertension; R73.09 Other abnormal glucose; I71.40 Abdominal aortic aneurysm, without rupture, unspecified

== ENCOUNTER → 2025-05-08 09:30 | Outpatient (BNV) | payer OTHER, SELFPAY | PROVIDERS: PCP Physician Assistant; Visit Provider Radiology Diagnostic Radiology | DX: J43.2 Centrilobular emphysema (principal); J92.9 Pleural plaque without asbestos; K44.9 Diaphragmatic hernia without obstruction or gangrene | CPT/HCPCS: 71046 ==

== ENCOUNTER 2025-05-24 18:16 | Emergency (ER) | payer OTHER, SELFPAY ==
--- OUTSIDE RECORDS SUMMARY | 2024-11-21 04:30 | XMS_ITS ---
Author Organization [facility] Address [address] [place] [address] Care Team Providers Care Branch Associate Teller Name Role Phone Pipe Washburn Primary Care Provider Unavailab Arcelia Alonso Unavailable [phone] Ariana Garcia Unavailable [phone] Pratt Encounters Encounter Location Date Provider Diagnosis [facility] [address] [place] [address] 11/21/2024 Ariana Garcia Plan Of Treatment Next Appt Details Provider Name:Arcelia parson, 07/02/2025 09:00:00 AM, [address] [place], [address], Progress Notes * Dia RABAGOReganOB:1945 (79 yo F)Acc No.[id number]:11/21/2024 Progress Note Patient: Bridget SERRANO Provider: Crystal Garcia DPM :1945 A ge:79 Y S ex:Female Date:11/21/2024 Address:[address] [place] [address] Pcp:Pipe Washburn Subjective: * Chief Complaints: * [address] Pratt. * Medical History: Objective: * Vitals: Assessment: Plan: * Treatment: * Images: * The named appointment provid er may or may not be the originator of this progress note, and it is not deemed complete until electronically signed by the appointment provider. Sign off status: Pending * Provider: Crystal Garcia, DPM Date: 0 11/21/2024 Generated for Vern hernández/Claudio/Hina on: 07/24/2024 08:15 PM EST
--- OUTSIDE RECORDS SUMMARY | 2025-01-26 07:00 | XMS_ITS ---
Author Organization [facility] Address [address] [place] [address] Care Team Providers Care Fiscal Assistant Name Role Phone Pipe Washburn Primary Care Provider Unavailab Arcelia Alonso Unavailable [phone] Ariana Garcia Unavailable [phone] Encounters Encounter Location Date Provider Diagnosis [address] [address] 01/26/2025 Ariana Garcia Plan Of Treatment Next Appt Details Provider Name:Arcelia parson, 07/02/2025 09:00:00 AM, [address] [place], [address], Progress Notes * Dia RABAGOReganOB:1945 (79 yo F)Acc No.[id number]:01/26/2025 Progress Note Patient: Bridget SERRANO Provider: Crystal Garcia DPM :1945 A ge:79 Y S ex:Female Date:01/26/2025 Address:[address] [place] [address] Pcp:Pipe Washburn Subjective: * Chief Complaints: * * Medical History: Objective: * Vitals: Assessment: Plan: * Treatment: * Images: * The named appointment provid er may or may not be the originator of this progress note, and it is not deemed complete until electronically signed by the appointment provider. Sign off status: Pending * Provider: Crystal Garcia DPM Date: 0 01/26/2025 Generated for Vern hernández/Claudio/Hina on: 1 07/24/2024 08:15 PM EST
--- OUTSIDE RECORDS SUMMARY | 2025-02-09 04:15 | XMS_ITS ---
Author Organization [facility] Address [address] [place] [address] Care Team Providers Care Manager Of Medical Name Role Phone Pipe Washburn Primary Care Provider Unavailab Arcelia Alonso Unavailable [phone] Ariana Garcia Unavailable [phone] REASON FOR VISIT Seen Sooner Encounters Encounter Location Date Provider Diagnosis [facility] [address] [place] [address] 02/09/2025 Ariana Garcia Plan Of Treatment Next Appt Details Provider Name:Arcelia parson, 07/02/2025 09:00:00 AM, [address] [place], [address], Progress Notes * Dia YOUNGERReganOB:1945 (79 yo F)Acc No.[id number]:02/09/2025 Progress Note Patient: Bridget SERRANO Provider: Crystal Garcia DPM :1945 A ge:79 Y S ex:Female Date:02/09/2025 Address:[address] [place] [address] Pcp:Pipe Washburn Subjective: * Chief Complaints: * 1 . Seen Sooner. * Medical History: Objective: * Vitals: Assessment: Plan: * Treatment: * Images: * The named appointment provid er may or may not be the originator of this progress note, and it is not deemed complete until electronically signed by the appointment provider. Sign off status: Pending * Provider: Crystal Garcia, DPNavin Date: 0 02/09/2025 Generated for Vern hernández/Claudio/Hina on: 07/24/2024 08:15 PM EST
--- NOTE | ~2025-05-24 | CT_ITS ---
CLINICAL HISTORY: Fall CT cervical spine without contrast Comparison: 09/11/22 Findings: Image quality is degraded by patient motion. Mild multilevel anterolisthesis, degenerative. No fracture. No severe central spinal canal stenosis. No epidural hematoma. Normal thickness of the prevertebral soft tissues. Severe emphysema and mild scarring at the lung apices. Impression: No acute findings. This document has been electronically signed by: Roxanne Green MD on 05/24/2025 21:22:32
--- NOTE | ~2025-05-24 | CT_ITS ---
CLINICAL HISTORY: Fall CT head without contrast Comparison: CT/SR - CT HEAD WITHOUT IV CONTRAST - 02/08/24 13:[address]/SR - CT HEAD WITHOUT IV CONTRAST - 09/11/22 17:06 EST Findings: Image quality is degraded by patient motion. No acute hemorrhage. No extra-axial fluid collection. No hydrocephalus, mass-effect or herniation. Schneider-white differentiation is maintained. There is patchy hypoattenuation of the periventricular and deep white matter, which is most likely the sequela of moderate chronic small vessel ischemic disease and is similar to the prior studies. Encephalomalacia in the right frontal lobe and right parietal /occipital lobe junction, unchanged. No acute orbital pathology. Large frontal scalp hematoma measuring up to 2.0 cm in thickness which extends into the right temporal and left frontal scalp. No fracture. The visualized paranasal sinuses are predominantly clear. The mastoid air cells are clear. Impression: No acute intracranial findings. This document has been electronically signed by: Roxanne Green MD on 05/24/2025 21:25:40
--- NOTE | ~2025-05-24 | XR_ITS ---
CLINICAL HISTORY: rib pain fall earlier Radiographs of the chest and right ribs Comparison: CR/SR - XR CHEST 2 VIEWS - 05/08/25 09:39 EDT CR/NJ/SR - XR CHEST 2 VIEWS - 02/09/24 16:27 EDT CR/NJ/SR - XR CHEST 2 VIEWS - 02/08/24 12:40 EDT Findings: Question fracture of the right anterior 4th rib without significant displacement. Thoracic kyphoplasty. Normal heart size. Normal mediastinal contours. No pneumothorax. Mild biapical scarring. No pleural effusion. Hiatal hernia. Endovascular stent in the aorta. No acute findings in the upper abdomen. Impression: Question nondisplaced fracture of the right anterior 4th rib. Correlate with location of pain. This document has been electronically signed by: Roxanne Green MD on 05/24/2025 22:03:36
[2025-05-24 18:21] VITALS: BP 124/81; PULSE 106; RESP 18; TEMP 36.3; O2SAT 91; BMI 20.6
--- NOTE | 2025-05-24 18:32 | ED_ITS ---
HPI - General Adult General Chief complaint: Fall Stated complaint: braden wilson on head Time Seen by Provider: 05/24/25 20:20 Source: patient, family (niece), RN notes reviewed and old records reviewed Mode of arrival: ambulatory Limitations: no limitations History of Present Illness ED Provider: Taniya HPI narrative: 79-year-old female with a past medical history significant for previous CVA, chronic back pain, COPD on chronic 2 liters oxygen, hypertension with reported white coat syndrome, hyperlipidemia, GERD presents for evaluation after a fall. Patient reports that she tripped over an extension cord. Falling forward and landing on her forehead. She has suffered a small laceration that was bleeding pain She takes aspirin but denies any anticoagulation. There was no loss of consciousness pain She denies any new neck pain or back pain. Denies any pain to her extremities She denies any prodrome of lightheadedness, shortness of breath or chest pain prior to her fall in his quite adamant it was a nonsyncopal fall pain It was however not witnessed Related Data Home Medications ?Medication ?Instructions ?Recorded ?Confirmed atorvastatin 80 mg tablet 80 mg PO DAILY 04/18/2004/12 latanoprost 0.005 % eye drops 1 drp ophthalmic (eye) B EDTIME 07/02/22 05/08/25 nebulizers 12/18/22 05/08/25 calcium carbonate 500 mg PO BID 06/24/2305/08 aspirin 81 mg tablet,delayed 81 mg PO DAILY 10/27/23 1 release (Adult Aspirin Regimen) cholecalciferol (vitamin D3) 25 25 mcg PO DAILY 05/08/25 mcg (1,000 unit) tablet cyanocobalamin (vitamin B-12) 1,000 mcg PO DAILY 12/2105/08/25 1,000 mcg tablet albuterol sulfate 2.5 mg/3 mL 2.5 mg inhalation Q6H MI N SOB 02/08/24 05/08/25 (0.083 %) solution for nebulization Previous Rx's ?Medication ?Instructions ?Recorded nitroglycerin 0.4 mg sublingual 0.4 mg sublingual Q5M PRN chest 08/24/23 tablet pain #30 tabs fluticasone propionate 115 2 puff inhalation Q12H 30 d ays #12 12/22/23 mcg-salmeterol 21 mcg/actuation grams HFA inhaler (Advair HFA) acetaminophen 325 mg tablet 650 mg (2 x 325 mg) PO Q6H PRN 02/15/24 pain (scale score 4-6) #30 tabs commode (bedside commode) #1 ea 03/20/24 transport wheelchair #1 ea 04/25/24 wheelchair cushion #1 ea 04/26/24 fluticasone 113 mcg-salmeterol 14 1 inh inhalation Q12 H 30 days #1 ea 10/05/24 mcg/actuation breath activated powdr (AirDuo RespiClick) triamcinolone acetonide 0.1 % 1 appl topical DAILY 30 days #30 03/03/25 topical ointment grams albuterol sulfate 90 mcg/actuation 2 inh inhalation Q4 H PRN shortness 03/05/25 aerosol inhaler (Ventolin HFA) of breath or wheezing # 18 ea lisinopril 10 mg tablet 10 mg PO DAILY 90 days #90 t abs 03/08/25 rutxrl-icfvcglp-qaqxpj(pork)24,000-76,000-120,000 2 ca p PO BID 30 days #120 caps 04/18/25 unit capsule,del rel (Creon) metoclopramide HCl 10 mg tablet 10 mg PO QIDACHS #120 tabs 04/18/25 (Reglan) omeprazole 20 mg capsule,delayed 20 mg PO BID #180 cap s 04/18/25 release Allergies Allergy/AdvReac Type Severity Reaction Status Date / Time No Known Allergies Allergy Verified 05/24/25 18:27 Review of Systems 2 Constitutional: Constitutional: Denies body ache(s), Denies chills, Denies fever(s), Denies frequent falls and Reports headache(s) Eyes: Eyes: Denies blurry vision, Denies floaters, Denies irritation and Denies itchy eyes ENT: Denies vertigo, Denies dizziness and Reports headache(s) Cardiovascular: Cardiovascular: Denies chest pain and Denies dyspnea on exertion Respiratory: Respiratory: Denies cough and Denies dyspnea on exertion Gastrointestinal: Gastrointestinal: Denies abdominal pain, Denies nausea and Denies vomiting Musculoskeletal: Musculoskeletal: Denies back pain Integumentary/Breasts: Skin/Breast: Denies erythema, Denies rash, Reports unusual bruising and Reports wounds Neurologic: Denies vertigo, Denies dizziness, Denies frequent falls and Reports headache(s) Psychiatric: Psychiatric: Denies anxiety Allergic/Immunologic: Allergic/Immunologic: Denies itchy eyes PMFSH Past Medical History Medical History DVT (deep venous thrombosis) COPD (chronic obstructive pulmonary disease) Left ulnar fracture COPD (chronic obstructive pulmonary disease) COVID-19 Early satiety Abdominal bloating COPD exacerbation Essential hypertension Precordial chest pain Tachycardia Dyspnea Atherosclerotic cardiovascular disease Psoriasis Hydroureter, right Pernicious anemia Raynauds disease Hernia Emphysema lung Asthma History of pyloric channel ulcer Glaucoma Mild acid reflux Surgical History S/P cardiac catheterization H/O carotid endarterectomy (04/01/20) History of AAA (abdominal aortic aneurysm) repair Hx of shoulder surgery Hx of varicose vein stripping Family History Family History Father No problems noted. Mother No problems noted. Sister No problems noted. Sister No problems noted. Sister No problems noted. Sister No problems noted. Sister Cancer Son No problems noted. Social History Social History Household Members: None Housing: House Do you presently have visiting nurse or other home services: Yes Alcohol intake: never Patient Tobacco Use Status: Former Tobacco user Tobacco use type: Cigarette Years Smoked: 65 e-Cigarette/Vaping Use: Never Used Second Hand Smoke Exposure: Yes Advance Directives: Yes Advance Directives on File: Yes Advance Directives Date on File: 06/11/21 service: No Current occupational status: retired Cognitive needs: Yes Hearing needs: No Vision needs: Yes Physical Exam ED Vital Signs: Vital Signs - 24 hr 05/24/25 18:21 05/24/25 20:00 05/24/25 21:12 Temperature 97.3 F 97.8 F Pulse Rate 106 H 105 H Respiratory Rate 18 22 H Blood Pressure 124/81 207/92 H 202/83 H Pulse Oximetry 91 L 90 L Oxygen Delivery Method Nasal Cannula Nasal Cannula Oxygen Flow Rate 2 BMI result Body Mass Index 20.6 Const General: healthy appearing, comfortable, no acute distress, alert and awake Nutritional Appearance: well nourished Orientation/consciousness: patient oriented x3 HENMT Other: Contusion hematoma to the right side of the forehead. There was a very small, about 0.5 centimeter laceration to the right side of forehead. There was no crepitus on palpation of the facial bones specifically the orbits. She has intact extraocular motions without entrapment or nystagmus. Head: No normal to inspection and No atraumatic Eyes Eyelids: Yes eyelids normal Conjunctivae: conjunctivae normal Sclerae: sclerae normal Corneas: corneas normal Pupils: Equal, round and reactive pupils present EOM: EOMs intact bilaterally Neck Neck: Yes full ROM Resp Effort & Inspection: normal respiratory effort, able to speak in complete sentences and not labored Cardio Rate: regular rate Rhythm: regular rhythm GI Inspection: No distended Palpation (GI): Soft to palpation, not firm, nontender, no guarding and not rigid Back/Spine/Pelvis Other: No cervical spine tenderness Skin General skin exam: elasticity normal Neuro General: patient oriented x3 Cranial nerves: Yes CN's II-XII intact bilaterally, Yes Equal, round and reactive pupils present and Yes Bilaterally intact EOM present Cognition (Neuro): normal cognition Extrem Other: Moving all extremities well without any obvious deformities Course Course Course Narrative: RME: 79-year-old female presents to ED for fall. Patient tripped over extension cord and hit her head. Patient has large right frontal hit hematoma with laceration. Labs imaging ordered Reevaluation(s) Reevaluation #1: The patient was quite hypertensive as high as 207/92. The patient reports that she has white coat syndrome, she denies chest pain or headache. Plan for observation. She was hypoxic to 90 percent but is on her baseline supplemental oxygen and does not have shortness of breath. Time: 22:01 Reevaluation #2: Rib x-ray shows a questionable right 4th anterior rib fracture. The patient has no pain in his area. Her pain is more posterior lateral and in the lower ribs of 10 or 11. Therefore it does not seem the patient has an acute rib fracture Time: 22:28 Medications Administered Discontinued Medications Generic Name Dose Route Start Last Admin Trade Name Freq PRN Reason Stop Dose Admin Acetaminophen 650 mg 05/24/25 21:11 05/24/25 21:29 Acetaminophen 325 Mg Tablet PO 05/24/25 21:12 650 mg ONCE ONE Administration Medical Decision Making Medical Decision Making [facility] Narrative: 79-year-old female presents for evaluation after a fall. She reports this was nonsyncopal. She had a CT scan of the brain and cervical spine ordered in triage. She has a very large continues hematoma. I discussed treatment options for the laceration including laceration versus glue repair as it is a quite small laceration. The patient elected to have a Dermabond skin glue to close the wound. I cleaned the wound myself with Betadine and then closed the wound with Dermabond. CT scan of the brain and cervical spine did not know show significant traumatic brain injury or cervical spine fracture. She has a large continuous hematoma as utilized on exam. The patient began to complain of right-sided chest pain after a fall. Crepitus on exam, a chest x-ray with right-sided rib x-rays were ordered. Differential Diagnosis Differential Diagnoses: The differential diagnosis associated with the presentation includes Mechanical fall Laceration Contusion Intracranial hemorrhage Cervical fracture Rib fracture Pneumothorax less likely Lab Data [facility] Lab Attestation statement: I reviewed the patient's lab results. No leukocytosis or anemia. Normal platelet count. No electrolyte abnormalities warranting dimension. 05/24/25 18:33 05/24/25 18:33 Labs: Lab Results 05/24/25 Range/Units 18:33 WBC 7.5 (4.8-10.8) X10*3/uL RBC 4.83 (4.20-5.50) X10*6/uL Hgb 12.8 (12.0-16.0) g/dl Hct 41.6 (37.0-47.0) % MCV 86.1 (80.0-98.0) fL MCH 26.5 L (27.0-33.0) pg MCHC 30.8 L (31.0-35.0) g/dl RDW 14.5 (11.0-16.0) % Plt Count 197 (160-400) X10*3/uL MPV 10.8 (9.4-12.3) fL Immature Gran % (Auto) 0.4 (0.0-0.4) % Neut % (Auto) 70.9 (45-73) % Lymph % (Auto) 19.2 L (20-40) % Mcdonough % (Auto) 7.0 (2-11) % Eos % (Auto) 2.0 (0-4) % Baso % (Auto) 0.5 (0-2) % Lymph # (Auto) 1.4 (1.2-4.9) X10*3/uL Mcdonough # (Auto) 0.5 (0.1-1.2) X10*3/uL Eos # (Auto) 0.2 (0.0-0.4) X10*3/uL Baso # (Auto) 0.0 (0.0-0.2) X10*3/uL Abs Immat Gran (auto) 0.03 (0.00-0.03) X10*3/uL Absolute Neuts (auto) 5.3 (2.0-8.3) x10*3/uL Absolute Nucleated RBC 0.000 (0.0-0.012) X10*3/uL Nucleated RBC % (auto) 0.0 (0.0-0.2) /100WBC PT 12.2 (11.2-13.5) SEC INR 1.0 (0.9-1.1) Sodium 144 (135-145) mmol/L Potassium 3.9 (3.3-5.1) mmol/L Chloride 107 (96-108) mmol/L Carbon Dioxide 29 (22-29) mmol/L Anion Gap 12 (12-20) BUN 17 H (9-16) mg/dL Creatinine 0.77 (0.5-1.4) mg/dL Estim Creat Clear Calc 50.8 Estimated GFR > 60 Random Glucose 132 H (60-115) mg/dL Calcium 9.2 (8.4-10.2) mg/dL Total Bilirubin 0.4 (0.0-1.0) mg/dL AST 33 H (5-31) U/L ALT 18 (0-31) U/L Alkaline Phosphatase 88 (39-117) U/L Total Protein 7.3 (6.5-8.0) g/dL Albumin 4.1 (3.5-5.0) g/dL Radiology Impression Discussion of test interpretation with radiology: I have reviewed the radiologist's reading. Radiologist Impression: Findings: Image quality is degraded by patient motion. No acute hemorrhage. No extra-axial fluid collection. No hydrocephalus, mass-effect or herniation. Schneider-white differentiation is maintained. There is patchy hypoattenuation of the periventricular and deep white matter, which is most likely the sequela of moderate chronic small vessel ischemic disease and is similar to the prior studies. Encephalomalacia in the right frontal lobe and right parietal /occipital lobe junction, unchanged. No acute orbital pathology. Large frontal scalp hematoma measuring up to 2.0 cm in thickness which extends into the right temporal and left frontal scalp. No fracture. The visualized paranasal sinuses are predominantly clear. The mastoid air cells are clear. Impression: No acute intracranial findings. This document has been electronically signed by: Roxanne Green MD on 05/24/2025 21:25:40 Findings: Image quality is degraded by patient motion. Mild multilevel anterolisthesis, degenerative. No fracture. No severe central spinal canal stenosis. No epidural hematoma. Normal thickness of the prevertebral soft tissues. Severe emphysema and mild scarring at the lung apices. Impression: No acute findings. This document has been electronically signed by: Roxanne Green MD on 05/24/2025 21:22:32 Discharge Plan Discharge Clinical Impression: Contusion of face, Laceration of face Patient Disposition: Home, Self-Care Instructions: Laceration (ED) Additional Instructions: Your CT scan did not show any significant intracranial injury. You have a large hematoma to the right side of the forehead. This will likely continue to change colors pain I recommend applying ice every 4 hours for 10-15 minutes for the next 2 days. Use Tylenol as needed for pain Follow up with your primary doctor, return for new or worsening symptom Prescriptions: No Action nitroglycerin 0.4 mg tablet, sublingual 0.4 mg sublingual Q5M PRN (Reason: chest pain) Qty: 30 1RF Rx Instructions: do not exceed 3 doses per episode (DME) bedside commode Kit See Rx Instructions .Route Qty: 1 0RF Rx Instructions: As directed (DME) transport wheelchair See Rx Instructions .Route .MEDSUPPLY Qty: 1 0RF Rx Instructions: As directed (DME) wheelchair cushion See Rx Instructions .Route .MEDSUPPLY Qty: 1 0RF Rx Instructions: As directed fluticasone propion-salmeterol [AirDuo RespiClick] 113-14 mcg/actuation aerosol powdr breath activated 1 inh inhalation Q12H 30 Days Qty: 1 11RF triamcinolone acetonide 0.1 % ointment 1 appl topical DAILY 30 Days Qty: 30 0RF albuterol sulfate [Ventolin HFA] 90 mcg/actuation HFA aerosol inhaler 2 inh inhalation Q4H PRN (Reason: shortness of breath or wheezing) Qty: 18 0RF lisinopril 10 mg tablet 10 mg PO DAILY 90 Days Qty: 90 2RF albuterol sulfate 2.5 mg /3 mL (0.083 %) solution for nebulization 2.5 mg inhalation Q6H PRN (Reason: SOB) acetaminophen 325 mg Tablet 650 mg PO Q6H PRN (Reason: pain (scale score 4-6)) Qty: 30 0RF atorvastatin 80 mg tablet 80 mg PO DAILY latanoprost 0.005 % drops 1 drp ophthalmic (eye) BEDTIME Rx Instructions: One eye drop in each eye at bedtime. (DME) nebulizers Misc See Rx Instructions .Route Rx Instructions: As directed cyanocobalamin (vitamin B-12) 1,000 mcg tablet 1,000 mcg PO DAILY cholecalciferol (vitamin D3) 25 mcg (1,000 unit) tablet 25 mcg PO DAILY fluticasone propion-salmeterol [Advair HFA] 115-21 mcg/actuation HFA aerosol inhaler 2 puff inhalation Q12H 30 Days Qty: 12 11RF Creon 24,000-76,000 -120,000 unit capsule,delayed release(DR/EC) 2 cap PO BID 30 Days Qty: 120 3RF Rx Instructions: administer with meals and/or snacks metoclopramide HCl [Reglan] 10 mg tablet 10 mg PO QIDACHS Qty: 120 6RF omeprazole 20 mg capsule,delayed release(DR/EC) 20 mg PO BID Qty: 180 2RF calcium carbonate 500 mg calcium (1,250 mg) tablet 500 mg PO BID aspirin [Adult Aspirin Regimen] 81 mg tablet,delayed release (DR/EC) 81 mg PO DAILY Interventions: ED Discharge Assessment Last Done: 05/24/25 23:16 Discharge Date/Time: 05/24/25 23:17 Print Language: Citizen Of [place]
[2025-05-24 18:37] LABS: MANUAL DIFF FLAG NO
--- NOTE | 2025-05-24 18:38 | MHC.EDTECH ---
forehead lac not actively bleeding, visible swelling and bruising noted. lac cleaned with saline and wrapped with nonstick dressing
[2025-05-24 18:40] LABS: Hematocrit 41.6 % (37.0-47.0); Hemoglobin 12.8 g/dl (12.0-16.0); Imm Gran Abs Auto 0.03 X10*3/uL (0.00-0.03); Imm Gran Pct Auto 0.4 % (0.0-0.4); Lymphocytes Absolute Auto 1.4 X10*3/uL (1.2-4.9); Mean Corpuscular HGB Conc 30.8 g/dl (31.0-35.0); Mean Corpuscular Hemoglobin 26.5 pg (27.0-33.0); Mean Corpuscular Volume 86.1 fL (80.0-98.0); NRBC Abs Auto 0.000 X10*3/uL (0.0-0.012); NRBC Pct Auto 0.0 /100WBC (0.0-0.2); Platelet Count 197 X10*3/uL (160-400); Red Blood Count 4.83 X10*6/uL (4.20-5.50); White Blood Count 7.5 X10*3/uL (4.8-10.8)
[2025-05-24 18:46] LABS: INTERNATIONAL NORM RATIO 1.0 (0.9-1.1); Prothrombin Time 12.2 SEC (11.2-13.5)
[2025-05-24 18:51] LABS: Alanine Aminotransferase 18 U/L (0-31); Albumin Level 4.1 g/dL (3.5-5.0); Alkaline Phosphatase 88 U/L (39-117); Anion Gap 12 (12-20); Aspartate Amino Transferase 33 U/L (5-31); Blood Urea Nitrogen 17 mg/dL (9-16); Calcium 9.2 mg/dL (8.4-10.2); Carbon Dioxide 29 mmol/L (22-29); Chloride 107 mmol/L (96-108); Creatinine Clr Calc Pharmacy 50.8; Estimated Glomerular Filt Rate > 60; Potassium 3.9 mmol/L (3.3-5.1); Sodium 144 mmol/L (135-145); Total Protein 7.3 g/dL (6.5-8.0)
[2025-05-24 20:00] VITALS: BP 207/92; PULSE 105; RESP 22; TEMP 36.6; O2SAT 90
--- NOTE | 2025-05-24 20:12 | PC.NURSE ---
pt refused to lay in stretcher stated she never lays down and even for sleeping at home she is in a recliner. pt placed in a recliner with 2 pillows per request. chair alarm in place as well as fall precautions. niece is at bedside as well. call clark within reach. hx copd, o2 level is her baseline.
--- NOTE | 2025-05-24 20:16 | PC.NURSE ---
Fall risk precautions in place for this pt. Pt educated to use call clark for assistance. Curtains pulled back so pt is in view of the nurses station.
--- OUTSIDE RECORDS SUMMARY | 2025-05-24 20:16 | XMS_ITS | Patient Health Record ---
[facility] Organization [facility] Address [address] [place] [address] Care Team Providers Care Telephonic Rn Name Role Phone Pipe Washburn Primary Care Provider Unavailab Arcelia Alonso Unavailable [phone] Ariana Garcia Unavailable [phone] Allergies No Known Allergies Reason For Referral [...] DAYS Oral; Duration: 90 Days Active Creon 03114-30034 UNIT Oral; Duration: 3 0 Days Active [...] Problem Acquired hammer toe of right foot (2915685488505144) Other hammer toe(s) (acquired), right foot (M20.41) Active confirmed Problem Acquired hammer toe of left foot (5538190196885094) Other hammer toe(s) (acquired), left foot (M20.42) Active confirmed Problem Bilateral atherosclerosis of arteries of lower limbs (disorder) (79655109087148216 ) Atherosclerosis of [place] artery of both lower extremities, with unspecified presence of clinical manifestation (I70.203) Active confirmed Vital Signs Blood pressure diastolic 65 mm Hg 03/05/2025 Height 5 ft 4 in in 03/05/2025 Blood pressure systolic 120 mm Hg 03/05/2025 Weight 131 lbs 03/05/2025 BMI 22.48 kg/m2 03/05/2025 Encounters Encounter Location Date Provider Diagnosis [address] [address] 06/06/2024 Ariana Perica Atherosclerosis of [place] artery of both lower extremities, with unspecified presence of clinical manifestation I70.203 ; Tinea unguium B35.1 ; Pain in right toe(s) M79.674 and Pain in left toe(s) M79.[address] [address] 08/23/2024 Ariana Perica Atherosclerosis of [place] artery of both lower extremities, with unspecified presence of clinical manifestation I70.203 ; Xerosis of skin L85.3 ; Tinea unguium B35.1 ; Pain in right toe(s) M79.674 and Pain in left toe(s) M79.675 [facility] [address] [address] 11/22/2024 Arcelia Rand Atherosclerosis of [place] artery of both lower extremities, with unspecified presence of clinical manifestation I70.203 ; Tinea unguium B35.1 ; Pain in right toe(s) M79.674 and Pain in left toe(s) M79.[address] [facility] [address] [address] 03/05/2025 Arcelia Rand Atherosclerosis of [place] artery of both lower extremities, with unspecified presence of clinical manifestation I70.203 ; Tinea unguium B35.1 ; Pain in right toe(s) M79.674 and Pain in left toe(s) M79.675 Assessments Encounter Date Diagnosis (ICD Code) Assessment Notes Treatment Notes Treatment Clinical Notes Section Notes 06/06/2024 Tinea unguium (ICD-10 - B35.1) 08/23/2024 Xerosis of skin (ICD-10 - L85.3) 08/23/2024 Atherosclerosis of [place] artery of both lower extremities, with unspecified presence of clinical manifestation (ICD-10 - I70.203) 11/22/2024 Tinea unguium (ICD-10 - B35.1) 06/06/2024 Atherosclerosis of [place] artery of both lower extremities, with unspecified presence of clinical manifestation (ICD-10 - I70.203) 11/22/2024 Atherosclerosis of [place] artery of both lower extremities, with unspecified presence of clinical manifestation (ICD-10 - I70.203) 03/05/2025 Tinea unguium (ICD-10 - B35.1) 03/05/2025 Atherosclerosis of [place] artery of both lower extremities, with unspecified [...] Provider Name:Arcelia Madden eb, 07/02/2025 09:00:00 AM, [address] [place] [address], [phone], Insurance Providers Payer Name Payer Address Payer Phone Subscriber Number Group Number Insured Name Patient Relationship to Insured Coverage Start Date Coverage End Date [facility] [employer] Claims [address] [place], [place] [id number] Bridget Rabago Self - patient is the [...]
--- OUTSIDE RECORDS SUMMARY | 2025-05-24 20:16 | XMS_ITS | Clinical Summary ---
Author Organization [employer] Address [address] [facility] [facility] [address] [place] [address] Care Team Providers Care Sample Puller Name Role Phone Unavailable Primary Care Provider [...] 75+ series) 2020 COVID-19 Vaccine ( - 2024-2 6 season) 2025 Influenza Vaccine (#1) 2025 HIB [...] patient's age to complete this topic Insurance [facility]
[2025-05-24 21:12] VITALS: BP 202/83
--- NOTE | 2025-05-24 21:12 | PC.NURSE ---
assisted pt to the bathroom via wheelchair to change brief. pt reported R. rib pain upon trying to get up off the toilet. BP also remains elevated. Manjeet PATEL made aware. xr ordered per request. pt requested tylenol and ordered as well.
[2025-05-24 23:16] VITALS: BP 146/64; PULSE 70; RESP 18; TEMP 36.7; O2SAT 94
== END 2025-05-24 23:17 | disposition home or self-care (01) ==
PROVIDERS: Emergency Provider Emergency Medicine Emergency Medical Services; PCP Physician Assistant
DX: S01.81XA Laceration without foreign body of other part of head, initial encounter (principal); R51.9 Headache, unspecified; R03.0 Elevated blood-pressure reading, without diagnosis of hypertension; R06.02 Shortness of breath; M54.2 Cervicalgia; R07.89 Other chest pain; W01.10XA Fall on same level from slipping, tripping and stumbling with subsequent striking against unspecified object, initial encounter; Y93.17 Activity, water skiing and wake boarding; Y92.89 Other specified places as the place of occurrence of the external cause; Y99.8 Other external cause status; Z87.891 Personal history of nicotine dependence
CPT/HCPCS: 36415; 70450; 71101; 72125; 80053; 85025; 85610; 99284

== ENCOUNTER → 2025-05-24 18:32 | Outpatient (BNV) | payer OTHER, SELFPAY | PROVIDERS: PCP Physician Assistant; Visit Provider Radiology Diagnostic Radiology | DX: R07.89 Other chest pain (principal); Z04.3 Encounter for examination and observation following other accident | CPT/HCPCS: 70450; 71101; 72125 ==

== ENCOUNTER 2025-06-04 14:59 | Outpatient (AMB) | payer OTHER, SELFPAY ==
[2025-06-04 15:13] VITALS: BP 142/90; PULSE 104; O2SAT 91; BMI 20.3
--- NOTE | 2025-06-04 15:13 | MHC.PC.OV ---
Vital Signs 06/04/25 15:13 Height 5 ft 4 in Weight 118 lb 6.212 oz BMI 20.3 BP 142/90 H Blood Pressure Location Lt brachial Position Sitting Pulse 104 H Pulse Source Pulse Oximeter Pulse Oximetry (%) 91 L Oxygen Delivery Method Nasal Cannula Oxygen Flow Rate 2 Intake Visit Reasons: Fall follow up Bible Worker Required: No Accompanied by: Self / Same As Patient Allergies No Known Allergies Allergy (Verified 06/04/25 15:34) Medication List - Last Reconciled 06/04/25 by Pipe Washburn PA-C acetaminophen 650 mg (2 x 325 mg) PO Q6H PRN albuterol sulfate 2.5 mg inhalation Q6H PRN albuterol sulfate 90 mcg/actuation (Ventolin HFA) 2 inhalations inhalation Q4H PRN aspirin (Adult Aspirin Regimen) 81 mg PO DAILY atorvastatin 80 mg PO DAILY calcium carbonate 500 mg PO BID cholecalciferol (vitamin D3) 25 mcg PO DAILY commode (bedside commode) As directed cyanocobalamin (vitamin B-12) 1,000 mcg PO DAILY fluticasone propion-salmeterol 113-14 mcg/actuation (AirDuo RespiClick) 1 inh inhalation Q12H 30 days fluticasone propion-salmeterol 115-21 mcg/actuation (Advair HFA) 2 puffs inhalation Q12H 30 days latanoprost 0.005% 1 drp ophthalmic (eye) BEDTIME bwxcrx-hudlzymq-vviiedn (pork) 24,000-76,000 -120,000 unit (Creon) 2 caps PO BID 30 days lisinopril 10 mg PO DAILY 90 days metoclopramide HCl (Reglan) 10 mg PO QIDACHS nebulizers As directed nitroglycerin 0.4 mg sublingual Q5M PRN omeprazole 20 mg PO BID [transport wheelchair As directed] triamcinolone acetonide 0.1% 1 appl topical DAILY 30 days [wheelchair cushion As directed] Tobacco use date assessed: 06/04/25 Fall risk assessment: 1 Fall in past year Last assessed Fall Risk: 06/04/25 Dental Screening Dental Screen Date: 06/04/25 Did you have a dental visit in the last 12 months?: No Did you have a dental problem in the last 6 months where you did not have access to dental care?: No Was dental information given to patient?: No HPI Fall follow up HPI Details Patient is a 79-year-old female here today for an ER follow-up visit. She unfortunately in the suffered a mechanical fall by tripping over an extension cord resulting in a head injury in the laceration over forehead. Patient underwent a CT of head without any intracranial hemorrhages noted though did have a hematoma over the forehead.. The hematoma initially decreased in size, but has recently begun to swell and darken again. The injury also resulted in extensive ecchymosis affecting the patient's entire face, including inside the mouth and nose. The patient continues to take daily aspirin, which was not discontinued at the hospital. For pain, the patient has been taking Tylenol. COUNTS INCLUDE 234 BEDS AT THE [facility] Medical History DVT (deep venous thrombosis) COPD (chronic obstructive pulmonary disease) Left ulnar fracture COPD (chronic obstructive pulmonary disease) COVID-19 Early satiety Abdominal bloating COPD exacerbation Essential hypertension Precordial chest pain Tachycardia Dyspnea Atherosclerotic cardiovascular disease Psoriasis Hydroureter, right Pernicious anemia Raynauds disease Hernia Emphysema lung Asthma History of pyloric channel ulcer Glaucoma Mild acid reflux Surgical History S/P cardiac catheterization H/O carotid endarterectomy (04/01/20) History of AAA (abdominal aortic aneurysm) repair Hx of shoulder surgery Hx of varicose vein stripping Family History Father No problems noted. Mother No problems noted. Sister No problems noted. Sister No problems noted. Sister No problems noted. Sister No problems noted. Sister Cancer Son No problems noted. Social History Household Members: None Housing: House Do you presently have visiting nurse or other home services: Yes Alcohol intake: never Patient Tobacco Use Status: Former Tobacco user Tobacco use type: Cigarette Years Smoked: 65 e-Cigarette/Vaping Use: Never Used Second Hand Smoke Exposure: Yes Advance Directives Date on File: 06/11/21 service: No Current occupational status: retired Cognitive needs: Yes Hearing needs: No Vision needs: Yes Questionnaire PHQ-9 Over the last 2 weeks, how often have you been bothered by any of the following problems? 1. Little interest or pleasure in doing things: not at all 2. Feeling down, depressed, or hopeless: not at all 3. Trouble falling or staying asleep, or sleeping too much: not at all 4. Feeling tired or having little energy: more than half the days 5. Poor appetite or overeating: more than half the days 6. Feeling bad about yourself - or that you are a failure or have let yourself or your family down: more than half the days 7. Trouble concentrating on things, such as reading the newspaper or watching television: not at all 8. Moving or speaking so slowly that other people could have noticed. Or the opposite - being so fidgety or restless that you have been moving around a lot more than usual: not at all 9. Thoughts that you would be better off or of hurting yourself in some way: not at all Total score: 6 Source: Developed by Drs. Wallace Nathan, Maddi Steven, Codey Miller and colleagues, with an educational zachary from [employer]. Thrive Questionnaire Date Thrive assessed: 06/04/25 I am a: Patient What is your living situation today?: I have a steady place to live Within the past 12 months, did the food you bought not last and you didn't have the money to get more?: I choose not to answer this question Within the past 12 months, did you worry whether your food would run out before you got money to buy more?: I choose not to answer this question Do you have trouble paying for medicines?: I choose not to answer this question Do you have trouble getting transportation to medical appointments?: I choose not to answer this question Do you have trouble paying your heating and electricity bill?: I choose not to answer this question Do you have trouble taking care of your child, family member or friend?: I choose not to answer this question Do you have trouble with day-to-day activities such as bathing, preparing meals, shopping, managing finances, etc.?: I choose not to answer this question Are you currently unemployed and looking for a job?: I choose not to answer this question Are you interested in more education?: I choose not to answer this question Please select the resources that you would like help with: None Currently or been in a relationship where the following occur: I choose not to answer THRIVE Score: 0 AUDIT C Alcohol Use Questionnaire (AUDIT-C) 1. How often do you have a drink containing alcohol?: Never 3. How often do you have six or more drinks on one occasion?: Never Total Score: 0 CHARLES-7 AMB Questionnaire CHARLES-7 Date CHARLES - 7 assessed: 06/04/25 Feeling nervous, anxious, or on edge: 0 = Not at all Not being able to stop or control worryin = Not at all Worrying too much about different things: 0 = Not at all Trouble relaxin = Not at all Being so restless that it is hard to sit still: 0 = Not at all Becoming easily annoyed or irritable: 0 = Not at all Feeling afraid as if something awful might happen: 0 = Not at all Total CHARLES-7 score (0-4 normal; 5-9 mild; 10-14 moderate; 15-21 severe): 0 Source: Developed by Drs. Wallace Nathan, Maddi Steven, Codey Miller and colleagues, with an educational zachary from [employer]. Review of Systems Const Denies headache(s) Eyes Denies loss of vision ENT Denies vertigo, Denies dizziness, Denies headache(s) and Denies sore throat Card Denies chest pain, Denies leg edema and Denies lightheadedness Resp Denies cough, Denies hemoptysis and Denies wheezing GI Denies abdominal pain, Denies melena, Denies constipation, Denies diarrhea and Denies vomiting Denies urinary frequency, Denies dysuria and Denies urinary urgency Musc Denies arthralgias, Denies joint swelling, Denies numbness and Denies tingling Neuro Denies Abnormal speech present, Denies behavioral changes, Denies vertigo, Denies dizziness, Denies headache(s), Denies loss of vision, Denies memory loss, Denies numbness and Denies tingling Psych Denies anxiety, Denies behavioral changes, Denies depression, Denies memory loss and Denies panic attacks Edwardo/Lymph Denies easy bleeding and Denies easy bruising Aller/Immun Denies wheezing Physical exam (Primary Care) Vital Signs: Last Vital Signs Pulse 104 H 06/04/25 15:13 BP 142/90 H 06/04/25 15:13 Pulse Ox 91 L 06/04/25 15:13 Oxygen Delivery Method Nasal Cannula 06/04/25 15:13 Oxygen Flow Rate 2 06/04/25 15:13 BMI result Body Mass Index 20.3 Tobacco/Smoking Status: Tobacco use Status Tobacco use date assessed 06/04/25 06/04/25 15:14 Patient Tobacco Use Status Former Tobacco user 06/04/25 15:14 Tobacco use type Cigarette 06/04/25 15:14 e-Cigarette/Vaping Use Never Used 06/04/25 15:14 PHQ-9: PHQ-9 Score PHQ-9: Total score 6 06/04/25 15:14 Thrive Assessment: Date of Thrive Assessment Date Thrive assessed 06/04/25 06/04/25 15:14 Currently or been in a relationship where the following occur: I choose not to answer Const General: healthy appearing, no acute distress, alert and awake Nutritional Appearance: well nourished Orientation/consciousness: oriented to person, oriented to place and oriented to time [facility] Head images:  1. HEART HEMATOMA WITH SURROUNDING ECCHYMOSIS NOTED THE RIGHT SIDE OF HER FOREHEAD Ears: TM's normal bilaterally General nose exam: Normal nasal mucous membranes and turbinates present Eyes Conjunctivae: conjunctivae normal Sclerae: sclerae normal Pupils: Equal, round and reactive pupils present Neck Neck: Yes no lymphadenopathy and Yes no JVD Thyroid: Thyroid normal Carotids: no bruits Resp Effort & Inspection: normal respiratory effort and not tachypneic Auscultation: no crackles, no rales, no rhonchi and no wheezes Cardio Rate: regular rate Rhythm: regular rhythm Heart sounds: no murmurs and normal S1 and S2 GI Palpation (GI): Soft to palpation, nontender, no hepatomegaly and no splenomegaly Auscultation: normal bowel sounds Skin General skin exam: no rashes or lesions noted and dry skin Neuro General: oriented to person, oriented to place and oriented to time Cranial nerves: Yes Equal, round and reactive pupils present Speech: No Abnormal speech present Gait exam (Neuro): Normal gait present Motor exam (neuro): no tremor noted Extrem Right upper extremity: full ROM Left upper extremity: full ROM Right lower extremity: full ROM; no edema Left lower extremity: full ROM; no edema Psych Mental Status: mental status grossly normal Speech and movement: Normal speech and movement present Affect: normal affect Attitude: cooperative Thought process: Normal thought process present Coding Level of Care Code Est Pt Level 3 (99172) Diagnoses Traumatic hematoma of head, subsequent encounter S00.93XD Encounter type: subsequent encounter Assessment & Plan Assessment & Plan (1) Traumatic hematoma of head: Code(s): S00.93XA - Contusion of unspecified part of head, initial encounter Category: Medical Qualifiers: Encounter type: subsequent encounter Qualified Code(s): S00.93XD - Contusion of unspecified part of head, subsequent encounter Plan: For the head injury and re-accumulating hematoma, the plan is conservative management. The patient is advised to hold aspirin until the Wednesday after Thanksgiving to reduce the bleeding risk. Application of cool compresses to the area is recommended to promote vasoconstriction. A penicillin-based antibiotic will be prescribed out of an abundance of caution for a possible underlying infection or abscess. Surgical evaluation for evacuation of the hematoma was offered, but the patient declined at this time; a referral will be placed to a general surgeon to have it readily available if needed. Medications: New amoxicillin-pot clavulanate 875-125 mg 1 tab PO BID 14 tabs 0RF 7 days S00.93XD - Contusion of unspecified part of head, subsequent encounter
== END 2025-06-04 15:50 | disposition home or self-care (01) ==
LOC: HO.HMCH 15:00
PROVIDERS: PCP Physician Assistant; Visit Provider Physician Assistant
DX: S00.93XD Contusion of unspecified part of head, subsequent encounter (principal)

== ENCOUNTER → 2025-06-04 14:59 | Outpatient (BNVA) | payer OTHER, SELFPAY | PROVIDERS: PCP Physician Assistant; Visit Provider Physician Assistant | DX: S01.81XD Laceration without foreign body of other part of head, subsequent encounter (principal); W22.8XXD Striking against or struck by other objects, subsequent encounter | CPT/HCPCS: 96127; 99212 ==

== ENCOUNTER → 2025-07-10 08:54 | Outpatient (REF) | payer OTHER, SELFPAY ==
--- OUTSIDE RECORDS SUMMARY | 2024-11-21 04:30 | XMS_ITS ---
Author Organization [facility] Address [address] [place] [address] Care Team Providers Care Blocking Machine Operator Name Role Phone Pipe Washburn Primary Care Provider Unavailab Arcelia Alonso Unavailable [phone] Ariana Garcia Unavailable [phone] Pratt Encounters Encounter Location Date Provider Diagnosis [facility] [address] [place] [address] 11/21/2024 Ariana Garcia Plan Of Treatment Next Appt Details Provider Name:Arcelia parson, 10/01/2025 09:00:00 AM, [address] [place], [address], Progress Notes * Dia RABAGOReganOB:1945 (79 yo F)Acc No.[id number]:11/21/2024 Progress Note Patient: Bridget SERRANO Provider: Crystal Garcia DPM :1945 A ge:79 Y S ex:Female Date:11/21/2024 Address:[address] [place] [address] Pcp:Pipe Washburn Subjective: * Chief Complaints: * [...] 0 11/21/2024 Generated for Vern hernández/Claudio/Hina on: 11:03 AM EST
--- OUTSIDE RECORDS SUMMARY | 2025-01-26 07:00 | XMS_ITS ---
[facility] Organization [facility] Address [address] [place] [address] Care Team Providers Care Lawn Service Manager Name Role Phone Pipe Washburn Primary Care Provider Unavailab Arcelia Alonso Unavailable [phone] Ariana Garcia Unavailable [phone] Encounters Encounter Location Date Provider Diagnosis [address] [address] 01/26/2025 Ariana Garcia Plan Of Treatment Next Appt Details Provider Name:Arcelia parson, 10/01/2025 09:00:00 AM, [address] [place], [address], Progress Notes * Dia RABAGOReganOB:1945 (79 yo F)Acc No.[id number]:01/26/2025 Progress Note Patient: Bridget SERRANO Provider: Crystal Garcia DPM :1945 A ge:79 Y S ex:Female Date:01/26/2025 Address:[address] [place] [id number] Pcp:Pipe Washburn Subjective: * Chief Complaints: * [...] 01/26/2025 Generated for Vern hernández/Claudio/Hina on: 1 11:03 AM EST
--- OUTSIDE RECORDS SUMMARY | 2025-02-09 04:15 | XMS_ITS ---
Author Organization [facility] Address [address] [place] [address] Care Team Providers Care Dowel Pin Worker Name Role Phone Pipe Washburn Primary Care Provider Unavailab Arcelia Alonso Unavailable [phone] Ariana Garcia Unavailable [phone] REASON FOR VISIT Seen Sooner Encounters Encounter Location Date Provider Diagnosis [facility] [address] [place] [address] 02/09/2025 Ariana Garcia Plan Of Treatment Next Appt Details Provider Name:Arcelia parson, 10/01/2025 09:00:00 AM, [address] [place], [address], Progress Notes * Dia YOUNGERReganOB:1945 (79 yo F)Acc No.[id number]:02/09/2025 Progress Note Patient: Bridget SERRANO Provider: Crystal Garcia DPM :1945 A ge:79 Y S ex:Female Date:02/09/2025 Address:[address] [place] [address] Pcp:Pipe Washburn Subjective: * Chief Complaints: * [...] 0 02/09/2025 Generated for Vern hernández/Claudio/Hina on: 11:03 AM EST
--- NOTE | 2025-07-10 08:57 | CA_ITS ---
Transthoracic Echocardiogram Patient (Last, First, Middle): Bridget Rabago, Gender: Female Date of : 1945 Age: 79 Procedure Date: 07/10/2025 Procedure Type: Transthoracic Echocardiogram Location: OP Height: 162.56 cm Weight: 53.52 kg BSA: 1.56 m2 Heart Rate: bpm BP: 142 / 90 mmHg Marina Dry Dock Manager: SIRISHA Referring MD: Bucky Lawler MD Symptoms: I35.0 - Nonrheumatic aortic (valve) stenosis Study Quality: Fair ECG Rhythm: Sinus Conclusions: - The left ventricular systolic function is hyperdynamic. The visually estimated ejection fraction is >70%. - There is moderate to severe aortic valve stenosis. - There is moderate mitral annular calcification. Findings Procedure Information The study quality is limited by the patients inability to tolerate the test. Left Ventricle Normal left ventricular cavity size. There is mildly increased left ventricular wall thickness. The left ventricular systolic function is hyperdynamic. The visually estimated ejection fraction is >70%. There is no evidence of regional wall motion abnormalities. E/E prime ratio is >15, consistent with elevated filling pressures. Evidence suggests grade I (mild) diastolic dysfunction. There is moderate septal and moderate basal asymmetric hypertrophy. Resting basal/LVOT gradient around 40 mm Hg, increases to about 50 mm Hg with Valsalva. Right Ventricle Normal right ventricular cavity size. There is mildly decreased right ventricular systolic function. Atria Both atria are normal in size. Aortic Valve There is moderate calcification of the aortic valve. There is moderate to severe aortic valve stenosis. The mean gradient is 30 mmHg. The aortic valve area is 0.92 cm2. There is no aortic valve regurgitation. Dimensionless index 0.37. Stroke volume index 37ml/m2. Mitral Valve There is moderate mitral annular calcification. There is no mitral valve regurgitation. There is no mitral valve stenosis. Pulmonic Valve The pulmonic valve is likely normal. Tricuspid Valve There is mild tricuspid valve regurgitation. Mild pulmonary hypertension is present. Great Vessels The asc aorta is normal in size. Venous The inferior vena cava is normal in size and collapses greater than 50% with inspiration. Pericardium/Pleural There is no evidence of pericardial effusion. Prior Study Comparison No significant change compared to prior study dated: 11/23/2024. Measurements 2D Linear Measurements IVSd: 1.24 0.6-0.9/0.6-1.0 cm LVIDd: 3.26 3.9-5.3/4.2-5.9 cm LVIDd Index: 2.09 2.4-3.2/2.2-3.1 cm/m2 LVIDs: 2.25 2.0-3.6 cm LVPWd: 1.18 0.7-1.1 cm LA Diam: 3.00 2.7-3.8/3.0-4.0 cm LAIDs Index: 1.92 1.5-2.3 cm/m2 LV Mass: 154.55 67-162/88-224 g LV Mass Index: 99.07 43-95/49-115 g/m2 LVOT Diam: 1.90 3.0+(-)1.3 cm Mitral Valve MV VTI: 0.32 MV Pk Leonardo: 1.48 MV Mn Leonardo: 0.90 MV Pk Grad: 9.00 MV Mn Grad: 4.00 MV Pk E: 1.00 MV PK A: 1.41 MV Decel Time: 295.00 E/A: 0.70 E'Lateral: 4.35 E'Medial: 3.37 E/E' Med: 29.70 E/E' Lat: 23.00 PHT: 86.00 MVA PHT: 2.56 MVA Continuity: 1.80 Decel [place]: 3.39 Aortic Valve AoV Pk Leonardo: 3.50 AoV Mn Leonardo: 2.59 AoV VTI: 0.63 AoV Pk Grad: 49.00 Aov Mn Grad: 30.00 PHILOMENA Cont.VTI: 0.92 LVOT LVOT Pk Leonardo: 1.28 LVOT Mn Leonardo: 0.81 LVOT VTI: 0.21 LVOT Pk Grad: 7.00 LVOT Mn Grad: 3.00 LVOT Diam: 1.90 LVOT Area: 2.84 Diastolic Function MV Pk E: 1.00 MV Pk A: 1.41 E/A: 0.70 E'Medial: 3.37 E/E' Med: 29.70 E' Laterial: 4.35 E/E' Lat: 23.00 Right Ventricle TAPSE (mm): 17.70 TVS' Leonardo: 9.14 Tricuspid Valve TR Pk Leonardo: 3.05 TR Pk Grad: 37.00 RA Press: 3.00 RVSP: 40.00 Great Vessels Aorta Sinus of Valsalva: 2.70 2.0-3.5 cm Ao Asc: 2.80 2.1-3.4 cm Updated in Other Vendor System with Status of Final Bucky Lawler MD electronically signed on 07/12/2025 12:57:21 PM with status of Final
--- OUTSIDE RECORDS SUMMARY | 2025-07-10 11:03 | XMS_ITS | Clinical Summary ---
Author Organization [employer] Address [address] [place] [address] Care Team Providers Care Heddler Tier Name Role Phone Unavailable Primary Care Provider [...] patient's age to complete this topic Insurance [facility]
--- OUTSIDE RECORDS SUMMARY | 2025-07-10 11:04 | XMS_ITS | Patient Health Record ---
[facility] Address [address] [place] [address] Care Team Providers Care Environmental Services Floor Tech Name Role Phone Pipe Washburn Primary Care Provider Unavailab Arcelia Alonso Unavailable [phone] Ariana Garcia Unavailable [phone] Allergies No Known Allergies Reason For Referral No Information Medications Medication SIG (Take, Route, Frequency, Duration) Notes Start Date End Date Status Vitamin B-12 1000 MCG TAKE 1 TABLET BY M OUTH EVERY DAY FOR 90 DAYS Oral; Duration: 90 Days Active Vitamin D3 25 MCG (1000 UT) TAKE 1 TABLET BY MOUTH EVERY DAY FOR 30 DAYS Oral; Duration: 90 Days Active Creon [id number] UNIT Oral; Duration: 3 0 Days Active Calcium 600 MG 1 tablet with meals Orally Twice a day; Duration: 30 day(s) 09/14/2023 Active Atorvastatin Calcium 80 MG Oral; Duratio n: 90 Days Active Nitroglycerin 0.4 MG as directed Sublingual PRN Active Baby Aspirin Active Latanoprost Active Eliquis 5 MG TAKE 1 TABLET BY KLEVER TH TWICE A DAY Oral; Duration: 30 Days Not-Taking oxygen prn Active Advair HFA 115-21 MCG/ACT INHALE 2 PUFFS BY MOUTH EVERY 12 HOURS Inhalation; Duration: 90 Days Active Metoclopramide HCl 10 MG 1 tablet before meals Orally 4 times a day; Duration: 30 days PRN Active Albuterol Sulfate 09/14/2023 A ctive Omeprazole 20 MG TAKE 1 CAPSULE BY MOUTH TWICE A DAY Oral; Duration: 90 Days Active Lisinopril 10 MG TAKE 1 TABLET BY KLEVER TH EVERY DAY FOR 30 DAYS Oral; Duration: 90 Days Active Immunizations Vaccine Route Administration Date Status Comme nts Influenza Unknown 03/14/2025 Administered Social History Tobacco Use: Social History Observation [...] Problem Acquired hammer toe of right foot ([id number]) Other hammer toe(s) (acquired), right foot (M20.41) Active confirmed Problem Acquired hammer toe of left foot ([id number]) Other hammer toe(s) (acquired), left foot (M20.42) Active confirmed Problem Bilateral atherosclerosis of arteries of lower limbs (disorder) ([id number] ) Atherosclerosis of soboba artery of both lower extremities, with unspecified presence of clinical manifestation (I70.203) Active confirmed Vital Signs Blood pressure diastolic 68 mm Hg 07/02/2025 Height 5 ft 4 in in 07/02/2025 Blood pressure systolic 120 mm Hg 07/02/2025 Weight 123 lbs 07/02/2025 BMI 21.11 kg/m2 07/02/2025 Encounters Encounter Location Date Provider Diagnosis [address] [address] 08/23/2024 Ariana Garcia Atherosclerosis of soboba artery of both lower extremities, with unspecified presence of clinical manifestation I70.203 ; Xerosis of skin L85.3 ; Tinea unguium B35.1 ; Pain in right toe(s) M79.674 and Pain in left toe(s) M79.[address] [address] 11/22/2024 Arcelia Rand Atherosclerosis of soboba artery of both lower extremities, with unspecified presence of clinical manifestation I70.203 ; Tinea unguium B35.1 ; Pain in right toe(s) M79.674 and Pain in left toe(s) M79.[address] [facility] [address] 03/05/2025 Arcelia Rand Atherosclerosis of soboba artery of both lower extremities, with unspecified presence of clinical manifestation I70.203 ; Tinea unguium B35.1 ; Pain in right toe(s) M79.674 and Pain in left toe(s) M79.[address] [address] 07/02/2025 Arcelia Rand Atherosclerosis of soboba artery of both lower extremities, with unspecified presence of clinical manifestation I70.203 ; Tinea unguium B35.1 ; Pain in right toe(s) M79.674 and Pain in left toe(s) M79.675 Assessments Encounter Date Diagnosis (ICD Code) Assessment Notes Treatment Notes Treatment Clinical Notes Section Notes 08/23/2024 Xerosis of skin (ICD-10 - L85.3) 08/23/2024 Atherosclerosis of soboba artery of both lower extremities, with unspecified presence of clinical manifestation (ICD-10 - I70.203) 11/22/2024 Tinea unguium (ICD-10 - B35.1) 11/22/2024 Atherosclerosis of soboba artery of both lower extremities, with unspecified presence of clinical manifestation (ICD-10 - I70.203) 03/05/2025 Tinea unguium (ICD-10 - B35.1) 03/05/2025 Atherosclerosis of soboba artery of both lower extremities, with unspecified presence of clinical manifestation (ICD-10 - I70.203) 07/02/2025 Atherosclerosis of soboba artery of both lower extremities, with unspecified presence of clinical manifestation (ICD-10 - I70.203) 03/05/2025 Pain in right toe(s) (ICD-10 - M79.674) 07/02/2025 Tinea unguium (ICD-10 - B35.1) 08/23/2024 Tinea unguium (ICD-10 - B35.1) 11/22/2024 Pain in right toe(s) (ICD-10 - M79.674) 08/23/2024 Pain in right toe(s) (ICD-10 - M79.674) 11/22/2024 Pain in left toe(s) (ICD-10 - M79.675) 03/05/2025 Pain in left toe(s) (ICD-10 - M79.675) 07/02/2025 Pain in right toe(s) (ICD-10 - M79.674) 07/02/2025 Pain in left toe(s) (ICD-10 - M79.675) 08/23/2024 Pain in left toe(s) (ICD-10 - M79.675) Plan Of Treatment Next Appt Details Provider Name:Arcelia Madden eb, 10/01/2025 09:00:00 AM, [address] [place] [address], [phone], Insurance Providers Payer Name Payer Address Payer Phone Subscriber Number Group Number Insured Name Patient Relationship to Insured Coverage Start Date Coverage End Date [facility] [employer] Claims [address] [facility] [place] [id number] Bridget Rabago Self - patient is the insured Medical (General) History Medical History History ICD Code Anxiety Arthritis asthma Back,Hip,and Knee pain CAD (Cholesterol) covid-19 Glaucoma Heart disease High blood pressure Lung disease Osteoporosis Psoriasis/eczema Stroke Measles Mumps Chicken pox Vascular grafts Broken hip Surgical History Surgery Date(Month/Year) shoulder surgery vein surgery clavical surgery aortic anuerism teeth extraction partial hip replacement 02/08/24 Hospitalization History Reason Date(Month/Year) Fell 05/29/25
== END ==
LOC: HO.CARD 08:54
PROVIDERS: PCP Physician Assistant; Visit Provider Internal Medicine
DX: I35.0 Nonrheumatic aortic (valve) stenosis (principal)
CPT/HCPCS: 93306

== ENCOUNTER → 2025-07-10 08:57 | Outpatient (BNV) | payer OTHER, SELFPAY | PROVIDERS: PCP Physician Assistant; Visit Provider Internal Medicine | DX: I51.89 Other ill-defined heart diseases (principal); I35.0 Nonrheumatic aortic (valve) stenosis; I34.81 Nonrheumatic mitral (valve) annulus calcification | CPT/HCPCS: 93306 ==